=== PATIENT | female | born 1955 | race Caucasian/White ===

== ENCOUNTER 2025-01-08 21:47 | Inpatient (IN) ==
--- NOTE | 2025-01-08 23:41 | Emergency Department Note ---
Impression & Plan SOB (shortness of breath), Fluid overload, Ascites, Elevated troponin ED Provider Note CHIEF COMPLAINT: Shortness of breath HISTORY OF PRESENTING ILLNESS: This 69-year-old female patient presents to the emergency department for evaluation of shortness of breath that began a few days ago. The patient feels like she has fluid in her abdomen. She states that she has missed multiple doses of her insulin, diuretics, and other medications. The patient has a history of COPD and CHF. The patient states that she wears 4 L of oxygen at all times, but was only requiring 2 L by nasal cannula per EMS. No history of cirrhosis or ascites per patient. Has noticed a lot of swelling in her legs. She is from [place], but has been staying with her brother for the past 2-3 weeks. The patient states that she has not been taking her outpatient medications as prescribed since coming to her brother's home. She denies any fevers. No cough or URI symptoms. She had constipation for 3 days, but finally started having BMs. She has been having increased reflux symptoms since stopping her omeprazole. She is not on blood thinners. REVIEW OF SYSTEMS: See HPI for pertinent positives and pertinent negatives. ALLERGIES: NKDA MEDICATIONS: See below PAST MEDICAL HISTORY: See below PHYSICAL EXAM: VITALS: Vitals are noted on the nurse's note and reviewed by myself. GENERAL: Non toxic, in no acute distress, non-diaphoretic. SKIN: The patient has venous stasis changes of her bilateral lower extremities. She also has 1+ pitting edema with weeping of the legs secondary to fluid overload, but no obvious evidence for cellulitis. Capillary refill <2 sec. EYES: PERRLA. EOMI. Conjunctivae without injection, sclerae without icterus. NOSE: Patent without discharge. MOUTH: Mucous membranes moist. Uvula midline. Airway patent. NECK: Supple without nuchal rigidity. HEART: Regular rate and rhythm without murmurs gallops or rubs. LUNGS: The patient is receiving oxygen by nasal cannula. Clear to auscultation bilaterally with a few scattered wheezes, but no rales or rhonchi. No retractions or accessory muscle use. ABDOMEN: Positive bowel sounds x 4. Soft, but mildly distended. Diffusely tender to palpation. No masses or hepatosplenomegaly. Saldivar sign negative. No CVA tenderness. No guarding, rigidity, or rebound tenderness. No focal RLQ or LLQ tenderness. NEURO: Patient was alert and oriented. No focal neurological deficits. DIFFERENTIAL DIAGNOSIS: Differential diagnosis includes angina, CT, pericarditis, myocarditis, aortic dissection, pleurisy, pneumothorax, PE, pneumonia, CHF, COPD, fluid overload, ascites, pneumomediastinum, esophagitis, esophageal spasm, GERD, perforated esophagus, perforated duodenal/gastric ulcer, pancreatitis, cholecystitis, costochondritis, musculoskeletal, bronchitis, URI, or others. ED COURSE AND MEDICAL DECISION MAKING: MEDICATIONS GIVEN: DuoNeb treatment. Lasix 40 mg IV. MONITOR: Continuous patient monitor: Order was placed for continuous patient monitor. Patient was placed on the patient monitor and continuous pulse ox. Patient was noted to be in normal sinus rhythm at an initial rate of 70 bpm per my interpretation. EKG: EKG was interpreted by myself as normal sinus rhythm at [address] bpm with no acute ST or T wave changes. INTERPRETATION OF LABS: I interpreted the labs with full lab results as below in the lab section of this note. Laboratory results pertinent to the emergent complaint are discussed in the MDM section below. The patient was advised to follow up with their PCP and/or specialist(s) for further outpatient monitoring and management of any abnormal results. INTERPRETATION OF IMAGING: Imaging studies were interpreted by myself and read by radiology as per the imaging section of this note. The patient was advised to follow up with their PCP and/or specialist(s) for further outpatient management of any non-emergent abnormal findings. Chest x-ray showed an enlarged heart with prominent perihilar and right lower zone bronchovascular markings representing pulmonary vascular congestion. Blunting of the left costophrenic angle representing mild pleural thickening. Possible consolidation/atelectasis of the left lower zone. CTA of the chest with IV contrast showed no evidence for PE. There is a dilated main pulmonary artery. Suggestion of 2D echo recommended to correlate for pulmonary hypertension. Mild left basal pleural thickening. Mild dependent reticular and ill-defined groundglass opacities in the basal segments of the left lower lobe. Mild cardiomegaly. Cholelithiasis. Splenomegaly. Perinephritic fat stranding around the left kidney. Mild ascites. CT scan of the abdomen and pelvis with IV contrast shows cardiomegaly with minimal pericardial effusion. Mild peripancreatic fat stranding at the head region, mesentery, and periduodenal region with edematous wall thickening of the duodenum. Possible early interstitial pancreatitis/group pancreatitis. Suggested serum lipase correlation which was normal. Heterogeneous enhancement of the liver parenchyma is noted with patchy areas of hypodensities within. This could be secondary to underlying perfusion abnormality due to cardiac cause. Perisplenic fluid seen. Cholelithiasis. Diffuse gallbladder wall edema is noted which is likely pseudo edema due to underlying hepatic or cardiac cause rather than acute cholecystitis. Bilateral perinephritic fat stranding. Visualized lung bases show patchy consolidation in lingula and minimal left pleural effusion. Diffuse subcutaneous edema/thickening in the lower anterior abdominal wall. CHRONIC MEDICAL/SOCIAL CONDITIONS AFFECTING CARE: CHF, COPD. The patient has not been taking her medications correctly recently. CONSULTATIONS: On-call hospitalist MDM SUMMARY: I examined the patient. The patient is from [place], but has been staying with her brother for the past 2 to 3 weeks. She has not been taking her normal outpatient medications since coming to her brother's home. She has been having increased shortness of breath over the past couple of days with fluid buildup in her abdomen and legs. The patient has a history of COPD and CHF, but denies a history of ascites or cirrhosis. An IV lock was placed and labs were drawn. The patient was not given any IV fluids due to concern for fluid overload. The patient was given a DuoNeb treatment with mild improvement of her symptoms. The patient states that she is normally on 4 L of oxygen by nasal cannula at home and this was applied in the ER. The patient was given Lasix 40 mg IV. White blood cell count normal at 6.27. Hemoglobin normal at 12.6. Platelet count normal at 252. Coags were normal. VBG with a low pH of 7.23 and elevated pCO2 of 69, but otherwise normal. This is concerning for respiratory acidosis. Creatinine 1.59, BUN 47, and glucose 172, but CMP otherwise normal. Lipase normal. TSH normal. BNP elevated at 578. High-sensitivity troponin elevated at 18 with repeat of 17.4. Urinalysis with 1+ protein, but negative for UTI. COVID, RSV, and influenza were negative. Chest x-ray showed an enlarged heart with prominent perihilar and right lower zone bronchovascular markings representing pulmonary vascular congestion. Blunting of the left costophrenic angle representing mild pleural thickening. Possible consolidation/atelectasis of the left lower zone. CTA of the chest with IV contrast showed no evidence for PE. There is a dilated main pulmonary artery. Suggestion of 2D echo recommended to correlate for pulmonary hypertension. Mild left basal pleural thickening. Mild dependent reticular and ill-defined groundglass opacities in the basal segments of the left lower lobe. Mild cardiomegaly. Cholelithiasis. Splenomegaly. Perinephritic fat stranding around the left kidney. Mild ascites. CT scan of the abdomen and pelvis with IV contrast shows cardiomegaly with minimal pericardial effusion. Mild peripancreatic fat stranding at the head region, mesentery, and periduodenal region with edematous wall thickening of the duodenum. Possible early interstitial pancreatitis/group pancreatitis. Suggested serum lipase correlation which was normal. Heterogeneous enhancement of the liver parenchyma is noted with patchy areas of hypodensities within. This could be secondary to underlying perfusion abnormality due to cardiac cause. Perisplenic fluid seen. Cholelithiasis. Diffuse gallbladder wall edema is noted which is likely pseudo edema due to underlying hepatic or cardiac cause rather than acute cholecystitis. Bilateral perinephritic fat stranding. Visualized lung bases show patchy consolidation in lingula and minimal left pleural effusion. Diffuse subcutaneous edema/thickening in the lower anterior abdominal wall. The patient has multiple abnormal laboratory studies as well as multiple abnormalities seen on her CT scan images. Therefore, the patient will require admission for further evaluation and treatment. I had a meaningful discussion about this patient with Dr. Briones who agrees with my assessment and the treatment plan. I spoke with the on-call hospitalist who agreed to admit the patient for further evaluation and treatment. Please refer to their dictation for further details. The patient's care was transferred in stable condition. DIAGNOSIS: Shortness of breath Fluid overload Ascites Elevated troponin Past Med/Surg History Problem List (Updated 01/09/25 @ 06:39 by Georgie Gonzalez PA-C) Elevated troponin (Acute) Ascites (Acute) Fluid overload (Acute) SOB (shortness of breath) (Acute) Social History Smoking Status: Former smoker Tobacco Type: Cigarettes Preferred Language: Gabonese Feels Safe at Home: Yes Allergies Allergies Allergy/AdvReac Type Severity Reaction Status Date / Time No Known Allergies Allergy Verified 01/09/25 00:24 Home Meds Home Medications Medication Instructions Recorded Confirmed carvedilol 3.125 mg tablet 3.125 mg PO AMPM 01/09/25 01/09/25 cholecalciferol (vitamin D3) 25 25 mcg PO DAILY 01/09/25 01/09/25 mcg (1,000 unit) tablet (Vitamin D3) cyanocobalamin (vitamin B-12) 1,000 mcg PO DAILY 01/09/25 01/09/25 1,000 mcg tablet escitalopram oxalate 10 mg tablet 10 mg PO QAM 01/09/25 01/09/25 hydroxyzine HCl 25 mg tablet 25 mg PO TID PRN Anxiety 01/09/25 01/09/25 insulin glargine 100 unit/mL (3 12 unit subcut HS 01/09/25 01/09/25 mL) subcutaneous pen (Basaglar KwikPen U-100 Insulin) simvastatin 20 mg tablet 20 mg PO QPM 01/09/25 01/09/25 torsemide 20 mg tablet 60 mg PO QAM 01/09/25 01/09/25 tramadol 50 mg tablet 50 mg PO Q8 PRN Moderate Pain 01/09/25 01/09/25 (Scale Score 5-6) Results & Data (ED) Vital Signs Vital Signs - 24 hr 01/08/25 21:59 01/08/25 21:59 01/08/25 21:59 Temperature 36.5 C Temperature Source Oral Pulse Rate 74 Pulse Rate [Apical] Respiratory Rate 20 Respiratory Effort / Characteristics Short of Breath SOB on Exertion Respiratory Depth Normal Respiratory Pattern Regular Blood Pressure 156/106 H Blood Pressure [Right Arm] Blood Pressure Mean 122 Blood Pressure Mean [Right Arm] Pulse Oximetry 97 97 Oxygen Delivery Method Nasal Cannula Nasal Cannula Oxygen Flow Rate 2 2 Sepsis Recent Fever Within 48 Hours No Sepsis New/Unexplained Change in Mental Status No Sepsis Action Taken by Nursing No Action Required 01/08/25 22:29 01/08/25 23:26 01/09/25 00:24 Temperature Temperature Source Pulse Rate 74 Pulse Rate [Apical] 70 Respiratory Rate 18 Respiratory Effort / Characteristics Non-Labored Respiratory Depth Normal Respiratory Pattern Regular Blood Pressure Blood Pressure [Right Arm] 170/90 H Blood Pressure Mean Blood Pressure Mean [Right Arm] 116 Pulse Oximetry 96 94 Oxygen Delivery Method Room Air Nasal Cannula Oxygen Flow Rate 2 Sepsis Recent Fever Within 48 Hours Sepsis New/Unexplained Change in Mental Status Sepsis Action Taken by Nursing 01/09/25 01:00 01/09/25 02:22 01/09/25 03:00 Temperature Temperature Source Pulse Rate 64 Pulse Rate [Apical] 90 67 Respiratory Rate 18 18 Respiratory Effort / Characteristics Non-Labored Spontaneous Respiratory Depth Normal Normal Respiratory Pattern Regular Regular Blood Pressure Blood Pressure [Right Arm] 169/90 H 170/97 H Blood Pressure Mean Blood Pressure Mean [Right Arm] 116 121 Pulse Oximetry 97 97 Oxygen Delivery Method Nasal Cannula Nasal Cannula Oxygen Flow Rate 4 4 Sepsis Recent Fever Within 48 Hours Sepsis New/Unexplained Change in Mental Status Sepsis Action Taken by Nursing Laboratory Data 01/09/25 00:24 01/09/25 00:24 Lab Results 01/08/25 01/09/25 01/09/25 Range/Units 21:58 00:24 00:50 WBC 6.27 (4.8-10.8) K/ul RBC 4.95 (4.20-5.40) M/uL Hgb 12.6 (12.0-16.0) g/dl Hct 42.2 (37.0-47.0) % MCV 85.3 (80.0-100.0) fL MCH 25.5 (25.0-34.0) pg MCHC 29.9 L (32.0-36.0) g/dL RDW Std Deviation 52.2 H (36.4-46.3) fL RDW Coeff of Otto 16.8 H (11.5-14.5) % Plt Count 252 (130-400) K/uL MPV 9.8 (9.4-12.4) fL Immature Gran % (Auto) 0.3 % Neut % (Auto) 76.7 % Lymph % (Auto) 10.7 % Morgan % (Auto) 8.8 % Eos % (Auto) 2.7 % Baso % (Auto) 0.8 % Neut # (Auto) 4.81 (1.40-6.50) K/uL Lymph # (Auto) 0.67 L (1.20-3.40) K/uL Morgan # (Auto) 0.55 (0.11-0.59) K/uL Eos # (Auto) 0.17 (0.00-0.50) K/uL Baso # (Auto) 0.05 (0.00-0.20) K/uL Immature Gran # (Auto) 0.02 (0.01-0.20) K/uL PT 11.1 (9.0-12.0) Seconds INR 1.0 (0.9-1.1) APTT 27 (21-31) Seconds PTT Ratio 1.0 VBG pH 7.23 L (7.36-7.41) VBG pCO2 69 H (38-50) mmHg VBG pO2 33 mmHg VBG HCO3 29 mmol/L VBG O2 Saturation < 60.0 % VBG Base Excess -0.4 mEq/L Sodium 136 (136-145) mmol/L Potassium 4.4 (3.5-5.1) mmol/L Chloride 102 (98-107) mmol/L Carbon Dioxide 30 (21-32) mmol/L Anion Gap 4 (3-11) BUN 47 H (6-23) mg/dl Creatinine 1.59 H (0.6-1.2) mg/dl Est Cr Clr Drug Dosing 44.9 ml/min eGFR 35.39 BUN/Creatinine Ratio 29.6 H (10-20) Glucose 172 H (70-99(Fasting)) mg/dl POC Glucose 169 H (70-99) mg/dl Calcium 8.5 L (8.6-10.3) mg/dl Magnesium 1.8 (1.7-2.4) mg/dl Total Bilirubin 0.6 (0.2-1.0) mg/dl AST 13 (13-39) U/L ALT 8 (7-52) U/L Alkaline Phosphatase 77 (34-104) U/L Troponin I High Sens 18.0 H (0-14) pg/ml B-Natriuretic Peptide 578 H (0-100) pg/ml Total Protein 6.8 (6.0-8.3) gm/dl Albumin 3.6 (3.4-5.0) gm/dl Globulin 3.2 (2.5-4.0) gm/dl Albumin/Globulin Ratio 1.1 (0.9-2) Lipase 35 (11-82) U/L TSH (0.300-4.500) uIu/ml Urine Color Yellow Urine Appearance Clear (Clear) Urine pH 5.0 (4.5-7.5) Ur Specific [place] 1.009 (1.000-1.030) Urine Protein 1+ H (Negative) Urine Glucose (UA) Negative (Negative) Urine Ketones Negative (Negative) Urine Blood Negative (Negative) Urine Nitrite Negative (Negative) Urine Bilirubin Negative (Negative) Urine Urobilinogen Negative (Negative) Ur Leukocyte Esterase Negative (Negative) Urine WBC (Auto) 0-5 (0-5) /hpf Urine RBC (Auto) 0-2 (0-2) /hpf U Hyaline Cast (Auto) 3-5 H (0-2) /lpf U Epithel Cells (Auto) 0-2 (0-2) /hpf Urine Bacteria (Auto) None Seen (None Seen) SARS-CoV-2 (PCR) (Negative) Influenza Type A (PCR) (Neg) Influenza Type B (PCR) (Neg) RSV (RT-PCR) (Neg) 01/09/25 01/09/25 Range/Units 02:24 02:26 WBC (4.8-10.8) K/ul RBC (4.20-5.40) M/uL Hgb (12.0-16.0) g/dl Hct (37.0-47.0) % MCV (80.0-100.0) fL MCH (25.0-34.0) pg MCHC (32.0-36.0) g/dL RDW Std Deviation (36.4-46.3) fL RDW Coeff of Otto (11.5-14.5) % Plt Count (130-400) K/uL MPV (9.4-12.4) fL Immature Gran % (Auto) % Neut % (Auto) % Lymph % (Auto) % Morgan % (Auto) % Eos % (Auto) % Baso % (Auto) % Neut # (Auto) (1.40-6.50) K/uL Lymph # (Auto) (1.20-3.40) K/uL Morgan # (Auto) (0.11-0.59) K/uL Eos # (Auto) (0.00-0.50) K/uL Baso # (Auto) (0.00-0.20) K/uL Immature Gran # (Auto) (0.01-0.20) K/uL PT (9.0-12.0) Seconds INR (0.9-1.1) APTT (21-31) Seconds PTT Ratio VBG pH (7.36-7.41) VBG pCO2 (38-50) mmHg VBG pO2 mmHg VBG HCO3 mmol/L VBG O2 Saturation % VBG Base Excess mEq/L Sodium (136-145) mmol/L Potassium (3.5-5.1) mmol/L Chloride (98-107) mmol/L Carbon Dioxide (21-32) mmol/L Anion Gap (3-11) BUN (6-23) mg/dl Creatinine (0.6-1.2) mg/dl Est Cr Clr Drug Dosing ml/min eGFR BUN/Creatinine Ratio (10-20) Glucose (70-99(Fasting)) mg/dl POC Glucose (70-99) mg/dl Calcium (8.6-10.3) mg/dl Magnesium (1.7-2.4) mg/dl Total Bilirubin (0.2-1.0) mg/dl AST (13-39) U/L ALT (7-52) U/L Alkaline Phosphatase (34-104) U/L Troponin I High Sens 17.4 H (0-14) pg/ml B-Natriuretic Peptide (0-100) pg/ml Total Protein (6.0-8.3) gm/dl Albumin (3.4-5.0) gm/dl Globulin (2.5-4.0) gm/dl Albumin/Globulin Ratio (0.9-2) Lipase (11-82) U/L TSH 2.615 (0.300-4.500) uIu/ml Urine Color Urine Appearance (Clear) Urine pH (4.5-7.5) Ur Specific [place] (1.000-1.030) Urine Protein (Negative) Urine Glucose (UA) (Negative) Urine Ketones (Negative) Urine Blood (Negative) Urine Nitrite (Negative) Urine Bilirubin (Negative) Urine Urobilinogen (Negative) Ur Leukocyte Esterase (Negative) Urine WBC (Auto) (0-5) /hpf Urine RBC (Auto) (0-2) /hpf U Hyaline Cast (Auto) (0-2) /lpf U Epithel Cells (Auto) (0-2) /hpf Urine Bacteria (Auto) (None Seen) SARS-CoV-2 (PCR) NEGATIVE (Negative) Influenza Type A (PCR) Negative (Neg) Influenza Type B (PCR) Negative (Neg) RSV (RT-PCR) Negative (Neg) Administered Medications Discontinued Medications Albuterol (Albut/Ipratrop 3mg/0.5mg Neb 3 Ml Vial) 3 ml NEB NOW STA; Protocol Stop: 01/09/25 00:25 Last Admin: 01/09/25 00:39 Dose: 3 ml Documented By: MIKE Furosemide (Furosemide 40 Mg/4 Ml Vial) 40 mg IV ONE ONE Stop: 01/09/25 03:15 Last Admin: 01/09/25 03:40 Dose: 40 mg Documented By: MIKE Magnesium Sulfate/Dextrose (Magnesium Sulfate / D5w) 1 gm in 100 mls @ 50 mls/hr IV ONE ONE Stop: 01/09/25 05:49 Last Admin: 01/09/25 04:17 Dose: 50 mls/hr Documented By: MAR Ioversol (Optiray 320 125ml) 118 ml IV ONCE ONE Stop: 01/09/25 01:18 Last Admin: 01/09/25 01:17 Dose: 118 ml Documented By: PHONG Metoprolol Tartrate (Metoprolol Tartrate 1 Mg/Ml Vial) 2.5 mg IV NOW STA Stop: 01/09/25 03:59 Last Admin: 01/09/25 04:17 Dose: 2.5 mg Documented By: MAR Imaging Data Radiologist's Impression: Chest X-Ray 01/09/25 00:24 EXAM: XR chest 1V portable CLINICAL HISTORY: Shortness of breath and history of congestive heart failure. TECHNIQUE: An X-ray image of the chest is obtained using an AP projection. COMPARISON: The available current CT chest PE protocol is reviewed. FINDINGS: Pulmonary Parenchyma: Prominent perihilar and right lower zone bronchovascular markings. Possible consolidation/atelectasis left lower zone. No pulmonary nodules are identified. Blunting of left costophrenic angle, representing mild pleural thickening. Heart and Mediastinum: The heart is enlarged. No mediastinal widening or masses. No hilar or mediastinal lymphadenopathy. Bony Thorax: Bony thorax appears intact without fractures or deformities. Soft Tissues: Elevated left diaphragm. IMPRESSION: Enlarged heart with prominent perihilar and right lower zone bronchovascular markings, representing pulmonary vascular congestion. (unchanged). Blunting of left costophrenic angle, representing mild pleural thickening(unchanged). Possible consolidation/atelectasis left lower zone. Concur with CT findings. Electronically signed by Jacky Villasenor 01-09-2025 02:34 AM Abdomen/Pelvis CT 04/18/25 00:26 EXAM: CT abd pelvis IV con only CLINICAL HISTORY: Abdominal pain TECHNIQUE: Multiple contiguous axial images were obtained from the level of diaphragm to the pubis symphysis. This study was acquired after the IV administration of iodinated contrast material, given the patient's indications for the examination. If IV contrast material had not been administered, the likelihood of detecting abnormalities relevant to the patient's condition would have been substantially decreased. Coronal and sagittal reformatted images were generated and reviewed to improve anatomic localization and optimize lesion detection. CT scan was performed according to ALARA (as low as reasonably achievable). COMPARISON: none FINDINGS: The visualized lung bases shows patchy consolidation in lingula and minimal left pleural effusion. Elevated left posterior hemidiaphragm. Cardiomegaly is detected. Minimal pericardial effusion is seen. ABDOMEN/PELVIS: Heterogeneous enhancement of the liver parenchyma is noted with patchy areas of hypodensities within. This could be due to secondary to underlying perfusion abnormality due to cardiac cause (in the background of diffuse subcutaneous edema). There is no intra or extrahepatic biliary ductal dilatation. Hepatic vasculature is patent. The gallbladder shows multiple small 2-3mm calculi within. Diffuse gallbladder wall edema is noted, likely pseudo edema due to underlying hepatic all cardiac cause rather than acute cholecystitis. Mild peripancreatic fat stranding at head region, mesentery and periduodenal region(D2 and D3 segment) with edematous wall thickening of duodenum. Perisplenic fluid is seen. The spleen and adrenal glands are unremarkable. The kidneys are normal in size and attenuation. There is no hydronephrosis. Bilateral perinephric fat stranding. No renal calculi or renal masses are identified. The ureters are normal in caliber and no ureteral calculi are seen. The bladder is mildly filled. Uterus and adnexa are unremarkable. No evidence of bowel obstruction is seen. The aorta is normal in caliber. No aggressive appearing osseous lesions are identified. Diffuse subcutaneous edema/thickening seen in lower anterior abdominal wall. IMPRESSION: 1. Cardiomegaly is detected. Minimal pericardial effusion is seen. 2. Mild peripancreatic fat stranding at head region, mesentery and periduodenal region(D2 and D3 segment) with edematous wall thickening of duodenum. Possible early interstitial pancreatitis/groove pancreatitis. Suggested serum amylase/lipase correlation. 3. Heterogeneous enhancement of the liver parenchyma is noted with patchy areas of hypodensities within. This could be due to secondary to underlying perfusion abnormality due to cardiac cause (in the background of diffuse subcutaneous edema). Suggested clinical/echocardiography correlation. 4. Perisplenic fluid is seen. 5. Cholelithiasis. Diffuse gallbladder wall edema is noted, likely pseudo edema due to underlying hepatic or cardiac cause more than acute cholecystitis. 6. Bilateral perinephric fat stranding. Suggested renal function test correlation. 7. Visualized lung bases shows patchy consolidation in lingula and minimal left pleural effusion. 8. Diffuse subcutaneous edema/thickening seen in lower anterior abdominal wall. Electronically signed by Darrius Aguilar 01-09-2025 03:02 AM Chest CTA 01/09/25 00:26 EXAM: CT angio chest PE protocol CLINICAL HISTORY: PE TECHNIQUE: Contiguous axial images were obtained from the neck base through the upper abdomen following intravenous administration of iodinated contrast material. Angiographic images were processed, 3D MIP images were acquired for interpretation. If IV contrast material had not been administered, the likelihood of detecting abnormalities relevant to the patient's condition would have been substantially decreased. Coronal and sagittal 3-D MIPs were likewise performed and indicated to increase the sensitivity of detectin diffuse clinically relevant pathology. CT scan was performed according to ALARA (as low as reasonable achievable). COMPARISON: none FINDINGS: Partial image degradation due to respiration related artefacts. Adequate contrast bolus without evidence of pulmonary embolism in main, left and right pulmonary and segmental arteries in both lungs. Subsegmental arteries are sub optimally visualsied due to partial image degradation. The central airways are patent. Mild left basal pleural thickening. Mild dependant reticular and ill defined ground glass opacities in basal segments of left lower lobe. Rest of the lungs are clear. No pleural effusion. The heart is mildly enlarged. Aorta is of normal size and configuration. There are no appreciable coronary artery and aortic atherosclerotic calcifications. No pericardial effusion is identified. The thyroid is unremarkable. No mediastinal, hilar, or axillary lymphadenopathy is noted. No suspicious lytic or sclerotic osseous lesions are identified. Cholelithiasis. splenomegaly perinephric fat stranding around left kidney. Mild ascites IMPRESSION: No evidence of pulmonary embolism. Dilated main pulmonary artery - Suggest 2D ECHO correlation for pulmonary hypertension. Mild left basal pleural thickening. Mild dependant reticular and ill defined ground glass opacities in basal segments of left lower lobe. Mild cardiomegaly. Cholelithiasis. Splenomegaly Perinephric fat stranding around left kidney. Mild ascites Electronically signed by Darrius Aguilar 01-09-2025 02:51 AM Discharge Plan Visit Data Chief Complaint: Shortness of Breath/Dyspnea Stated Complaint: SOB ED Provider: All [facility] ED Midlevel Provider: Georgie Gonzalez Discharge Problem: SOB (shortness of breath), Fluid overload, Ascites, Elevated troponin Patient Disposition: Admitted As Inpatient Condition: Fair Discharge Instructions Interventions: ED Discharge Assessment Last Done: 01/09/25 05:20 Discharge Problem: Fluid overload Qualifiers: Hypervolemia type: unspecified Qualified Code(s): E87.70 - Fluid overload, unspecified Ascites Qualifiers: Ascites type: other type Qualified Code(s): R18.8 - Other ascites
[2025-01-09] MEDS: ALBUT/IPRATROP 3MG/0.5MG NEB 3 ML VIAL NEB STA (00:39)
[2025-01-09 00:47] LABS: Appearance Urine Clear (Clear); Bacteria Urine Automated None Seen (None Seen); Bilirubin Urine Negative (Negative); Blood Urine Negative (Negative); Color Urine Yellow; Epithelial Cell Urine Auto 0-2 /hpf (0-2); Glucose Urine UA Negative (Negative); Ketones Urine Negative (Negative); Leukocyte Esterase Urine Negative (Negative); Nitrite Urine Negative (Negative); Protein Urine 1+ (Negative); RBC Urine Automated 0-2 /hpf (0-2); Specific Gravity Urine 1.009 (1.000-1.030); Urobilinogen Urine Negative (Negative); WBC Urine Automated 0-5 /hpf (0-5)
[2025-01-09 00:50] LABS: Basophils # (auto) 0.05 K/uL (0.00-0.20); Basophils % (auto) 0.8 %; Eosinophils # (auto) 0.17 K/uL (0.00-0.50); Eosinophils % (auto) 2.7 %; Hematocrit (blood only) 42.2 % (37.0-47.0); Hemoglobin 12.6 g/dl (12.0-16.0); Immature Granulocytes # (auto) 0.02 K/uL (0.01-0.20); Immature Granulocytes % (auto) 0.3 %; Lymphocytes # (auto) 0.67 K/uL (1.20-3.40); Lymphocytes % (auto) 10.7 %; Mean Corpuscular Hemoglobin 25.5 pg (25.0-34.0); Mean Corpuscular Hgb Conc 29.9 g/dL (32.0-36.0); Mean Corpuscular Volume 85.3 fL (80.0-100.0); Mean Platelet Volume 9.8 fL (9.4-12.4); Monocytes # (auto) 0.55 K/uL (0.11-0.59); Monocytes % (auto) 8.8 %; Neutrophils # (auto) 4.81 K/uL (1.40-6.50); Neutrophils % (auto) 76.7 %; Platelet Count 252 K/uL (130-400); RDW Coefficient of Variation 16.8 % (11.5-14.5); RDW Standard Deviation 52.2 fL (36.4-46.3); Red Blood Count 4.95 M/uL (4.20-5.40); White Blood Count 6.27 K/ul (4.8-10.8)
[2025-01-09 00:51] LABS: Albumin Globulin Ratio 1.1 (0.9-2); Albumin Level 3.6 gm/dl (3.4-5.0); BUN Creatinine Ratio 29.6 (10-20); Bilirubin,Total 0.6 mg/dl (0.2-1.0); Calcium 8.5 mg/dl (8.6-10.3); Creatinine Clr Calc Pharmacy 44.9 ml/min; Globulin 3.2 gm/dl (2.5-4.0); Magnesium 1.8 mg/dl (1.7-2.4); Potassium 4.4 mmol/L (3.5-5.1); Total Protein 6.8 gm/dl (6.0-8.3)
[2025-01-09 01:15] LABS: Base Excess VBG -0.4 mEq/L; HCO3 VBG 29 mmol/L; Oxygen Saturation VBG < 60.0 %; PCO2 VBG 69 mmHg (38-50); PO2 VBG 33 mmHg; pH VBG 7.23 (7.36-7.41)
[2025-01-09] MEDS: OPTIRAY 320 125ml IV ONE (01:17)
[2025-01-09 01:25] LABS: Partial Thromboplastin Time 27 Seconds (21-31); Prothrombin Time 11.1 Seconds (9.0-12.0)
--- NOTE | 2025-01-09 02:34 | XRay Report ---
EXAM: XR chest 1V portable CLINICAL HISTORY: Shortness of breath and history of congestive heart failure. TECHNIQUE: An X-ray image of the chest is obtained using an AP projection. COMPARISON: The available current CT chest PE protocol is reviewed. FINDINGS: Pulmonary Parenchyma: Prominent perihilar and right lower zone bronchovascular markings. Possible consolidation/atelectasis left lower zone. No pulmonary nodules are identified. Blunting of left costophrenic angle, representing mild pleural thickening. Heart and Mediastinum: The heart is enlarged. No mediastinal widening or masses. No hilar or mediastinal lymphadenopathy. Bony Thorax: Bony thorax appears intact without fractures or deformities. Soft Tissues: Elevated left diaphragm. IMPRESSION: Enlarged heart with prominent perihilar and right lower zone bronchovascular markings, representing pulmonary vascular congestion. (unchanged). Blunting of left costophrenic angle, representing mild pleural thickening(unchanged). Possible consolidation/atelectasis left lower zone. Concur with CT findings. Electronically signed by Jacky Villasenor 01-09-2025 02:34 AM
--- NOTE | 2025-01-09 02:51 | CT Scan Report ---
EXAM: CT angio chest PE protocol CLINICAL HISTORY: PE TECHNIQUE: Contiguous axial images were obtained from the neck base through the upper abdomen following intravenous administration of iodinated contrast material. Angiographic images were processed, 3D MIP images were acquired for interpretation. If IV contrast material had not been administered, the likelihood of detecting abnormalities relevant to the patient's condition would have been substantially decreased. Coronal and sagittal 3-D MIPs were likewise performed and indicated to increase the sensitivity of detectin diffuse clinically relevant pathology. CT scan was performed according to ALARA (as low as reasonable achievable). COMPARISON: none FINDINGS: Partial image degradation due to respiration related artefacts. Adequate contrast bolus without evidence of pulmonary embolism in main, left and right pulmonary and segmental arteries in both lungs. Subsegmental arteries are sub optimally visualsied due to partial image degradation. The central airways are patent. Mild left basal pleural thickening. Mild dependant reticular and ill defined ground glass opacities in basal segments of left lower lobe. Rest of the lungs are clear. No pleural effusion. The heart is mildly enlarged. Aorta is of normal size and configuration. There are no appreciable coronary artery and aortic atherosclerotic calcifications. No pericardial effusion is identified. The thyroid is unremarkable. No mediastinal, hilar, or axillary lymphadenopathy is noted. No suspicious lytic or sclerotic osseous lesions are identified. Cholelithiasis. splenomegaly perinephric fat stranding around left kidney. Mild ascites IMPRESSION: No evidence of pulmonary embolism. Dilated main pulmonary artery - Suggest 2D ECHO correlation for pulmonary hypertension. Mild left basal pleural thickening. Mild dependant reticular and ill defined ground glass opacities in basal segments of left lower lobe. Mild cardiomegaly. Cholelithiasis. Splenomegaly Perinephric fat stranding around left kidney. Mild ascites Electronically signed by Darrius Aguilar 01-09-2025 02:51 AM
[2025-01-09 03:02] LABS: Troponin I High Sensitivity 17.4 pg/ml (0-14)
--- NOTE | 2025-01-09 03:03 | CT Scan Report ---
EXAM: CT abd pelvis IV con only CLINICAL HISTORY: Abdominal pain TECHNIQUE: Multiple contiguous axial images were obtained from the level of diaphragm to the pubis symphysis. This study was acquired after the IV administration of iodinated contrast material, given the patient's indications for the examination. If IV contrast material had not been administered, the likelihood of detecting abnormalities relevant to the patient's condition would have been substantially decreased. Coronal and sagittal reformatted images were generated and reviewed to improve anatomic localization and optimize lesion detection. CT scan was performed according to ALARA (as low as reasonably achievable). COMPARISON: none FINDINGS: The visualized lung bases shows patchy consolidation in lingula and minimal left pleural effusion. Elevated left posterior hemidiaphragm. Cardiomegaly is detected. Minimal pericardial effusion is seen. ABDOMEN/PELVIS: Heterogeneous enhancement of the liver parenchyma is noted with patchy areas of hypodensities within. This could be due to secondary to underlying perfusion abnormality due to cardiac cause (in the background of diffuse subcutaneous edema). There is no intra or extrahepatic biliary ductal dilatation. Hepatic vasculature is patent. The gallbladder shows multiple small 2-3mm calculi within. Diffuse gallbladder wall edema is noted, likely pseudo edema due to underlying hepatic all cardiac cause rather than acute cholecystitis. Mild peripancreatic fat stranding at head region, mesentery and periduodenal region(D2 and D3 segment) with edematous wall thickening of duodenum. Perisplenic fluid is seen. The spleen and adrenal glands are unremarkable. The kidneys are normal in size and attenuation. There is no hydronephrosis. Bilateral perinephric fat stranding. No renal calculi or renal masses are identified. The ureters are normal in caliber and no ureteral calculi are seen. The bladder is mildly filled. Uterus and adnexa are unremarkable. No evidence of bowel obstruction is seen. The aorta is normal in caliber. No aggressive appearing osseous lesions are identified. Diffuse subcutaneous edema/thickening seen in lower anterior abdominal wall. IMPRESSION: 1. Cardiomegaly is detected. Minimal pericardial effusion is seen. 2. Mild peripancreatic fat stranding at head region, mesentery and periduodenal region(D2 and D3 segment) with edematous wall thickening of duodenum. Possible early interstitial pancreatitis/groove pancreatitis. Suggested serum amylase/lipase correlation. 3. Heterogeneous enhancement of the liver parenchyma is noted with patchy areas of hypodensities within. This could be due to secondary to underlying perfusion abnormality due to cardiac cause (in the background of diffuse subcutaneous edema). Suggested clinical/echocardiography correlation. 4. Perisplenic fluid is seen. 5. Cholelithiasis. Diffuse gallbladder wall edema is noted, likely pseudo edema due to underlying hepatic or cardiac cause more than acute cholecystitis. 6. Bilateral perinephric fat stranding. Suggested renal function test correlation. 7. Visualized lung bases shows patchy consolidation in lingula and minimal left pleural effusion. 8. Diffuse subcutaneous edema/thickening seen in lower anterior abdominal wall. Electronically signed by Darrius Aguilar 01-09-2025 03:02 AM
[2025-01-09 03:11] LABS: Influenza A virus by PCR Negative (Neg); Influenza B virus by PCR Negative (Neg); RSV by PCR Negative (Neg); SARS CoV2 RNA(COVID-19) Ceph NEGATIVE (Negative)
[2025-01-09] MEDS: FUROSEMIDE 40 MG/4 ML VIAL IV ONE (03:40)
[2025-01-09] MEDS ORDERED: carvediloL 3.125 MG TAB PO ONE (03:58)
--- NOTE | 2025-01-09 03:58 | History & Physical Report ---
Date of Service January 09, 2025 Assessment & Plan (1) Acute and chronic respiratory failure with hypercapnia: Plan: Acute on chronic hypoxemic, hypercapnic respiratory failure Underlying pulmonary hypertension hx chronic respiratory failure secondary to COPD/RLD on home O2 OHS on CPAP Secondary to decompensated heart failure secondary to missed home medications, uncontrolled BP hx diastolic dysfunction Troponin elevation secondary to above hyperlipidemia, on statin Rx DM2 insulin requiring, suboptimal control as of recent hemoglobin A1c of 8.25 September 2024 CRI, creatinine at baseline anxiety/mood disorder, at baseline past tobacco abuse Admit to PCU BiPAP given respiratory acidosis Recheck VBG Pulmonary consult if without improvement Diuretic Rx Strict I/Os, daily weights, CHF education, fluid restriction Cardiology consult re: decompensated heart failure Low-dose amlodipine if BP still uncontrolled following a.m. beta-ashlie dose Basal bolus insulin, ISS BG goal 110-140, carb count coverage DVT prophylaxis. Heparin subcu Full code Total critical care time was 45 minutes. Text document was generated using [employer] voice recognition software. It may contain grammatical or spelling errors. Kindly contact undersigned for clarification of any documentation item in question. History of Present Illness Chief Complaint: Shortness of breath, fluid retention Primary Care Provider: Dr. Urbina History obtained from patient and records. Medical history significant for chronic respiratory failure secondary to COPD/RLD on home O2, chronic diastolic heart failure (EF 60%, TTE 2024), mild TR, hypertension, hyperlipidemia, pulmonary hypertension, OHS on CPAP, DM2 insulin requiring, CRI (baseline creatinine 1.5-1.7), chronic LE venous stasis, GERD, cholelithiasis, anxiety/mood disorder, past tobacco abuse. Patient is a resident of [place], [place] who has been in town the last 2 weeks to visit brother. Last confinement [facility] September, for decompensated heart failure. BiPAP use during confinement due to hypercapnia. Patient discharged to [facility] for rehab before returning home. Patient ran out of home meds the last couple of days. Increased SOB especially on exertion and fluid retention the last couple of days. Denies chest pain, cough. Compliant with CPAP as per patient. Compliant with 2 L fluid restriction. Denies headache symptoms. Highest SBP 180s at the ER. Medical History as above Surgical History : Partial colectomy, tonsillectomy/adenoidectomy, appendectomy, abscess aspiration, carpal tunnel surgery Family History : Breast cancer, PAOLA Personal/Social history : Past tobacco abuse, rare EtOH intake, retired [employer] Allergies Allergy/AdvReac Type Severity Reaction Status Date / Time No Known Allergies Allergy Verified 01/09/25 00:24 Home Medications Medication Instructions Recorded Confirmed Type carvedilol 3.125 mg tablet 3.125 mg PO AMPM 01/09/25 01/09/25 History cholecalciferol (vitamin D3) 25 25 mcg PO DAILY 01/09/25 01/09/25 History mcg (1,000 unit) tablet (Vitamin D3) cyanocobalamin (vitamin B-12) 1,000 mcg PO DAILY 01/09/25 01/09/25 History 1,000 mcg tablet escitalopram oxalate 10 mg tablet 10 mg PO QAM 01/09/25 01/09/25 History hydroxyzine HCl 25 mg tablet 25 mg PO TID PRN Anxiety 01/09/25 01/09/25 History insulin glargine 100 unit/mL (3 12 unit subcut HS 01/09/25 01/09/25 History mL) subcutaneous pen (Basaglar KwikPen U-100 Insulin) simvastatin 20 mg tablet 20 mg PO QPM 01/09/25 01/09/25 History torsemide 20 mg tablet 60 mg PO QAM 01/09/25 01/09/25 History tramadol 50 mg tablet 50 mg PO Q8 PRN Moderate Pain 01/09/25 01/09/25 History (Scale Score 5-6) Past Med/Surg History Problem List (Updated 01/09/25 @ 07:47 by Tucker Castano MD) Acute and chronic respiratory failure with hypercapnia Elevated troponin (Acute) Ascites (Acute) Fluid overload (Acute) SOB (shortness of breath) (Acute) Social History Smoking Status: Former smoker Tobacco Type: Cigarettes Preferred Language: Lao Feels Safe at Home: Yes Review of Systems Review of Systems: As per HPI, all other systems reviewed and negative Physical Exam Physical Exam: GENERAL: Slightly uncomfortable, morbidly obese, minimal respiratory distress SKIN: Normal color, warm HEENT: [place] palpebral conjunctivae, no ptosis, dry buccal mucosa, BiPAP in place NECK : Supple, short neck, no tenderness CHEST : Decreased breath sounds, no tenderness HEART : RRR, no obvious murmurs ABDOMEN: Marked distention, nontender EXTREMITIES : Bilateral LE erythematous swelling (chronic as per patient), without tenderness, palpable pulses, no other conspicuous deformities noted NEUROLOGIC : Coherent, no facial asymmetry, no other gross focality Results & Data Results & Data Vital Signs (Past 12 Hours) Vital Signs Temp Pulse Pulse Resp BP BP Pulse Ox 01/09/25 02:22 64 01/09/25 01:00 90 18 169/90 H 97 01/09/25 00:24 94 01/08/25 23:26 70 18 170/90 H 96 01/08/25 22:29 74 01/08/25 21:59 97 01/08/25 21:59 36.5 C 74 20 156/106 H 97 O2 Del Method O2 Flow Rate 01/09/25 02:22 01/09/25 01:00 Nasal Cannula 4 01/09/25 00:24 Nasal Cannula 2 01/08/25 23:26 Room Air 01/08/25 22:29 01/08/25 21:59 Nasal Cannula 2 01/08/25 21:59 Nasal Cannula 2 Laboratory Results Laboratory Results WBC 6.27 K/ul (4.8-10.8) 01/09/25 00:24 RBC 4.95 M/uL (4.20-5.40) 01/09/25 00:24 Hgb 12.6 g/dl (12.0-16.0) 01/09/25 00:24 Hct 42.2 % (37.0-47.0) 01/09/25 00:24 MCV 85.3 fL (80.0-100.0) 01/09/25 00:24 MCH 25.5 pg (25.0-34.0) 01/09/25 00:24 MCHC 29.9 g/dL (32.0-36.0) L 01/09/25 00:24 RDW Std Deviation 52.2 fL (36.4-46.3) H 01/09/25 00:24 RDW Coeff of Otto 16.8 % (11.5-14.5) H 01/09/25 00:24 Plt Count 252 K/uL (130-400) 01/09/25 00:24 MPV 9.8 fL (9.4-12.4) 01/09/25 00:24 Immature Gran % (Auto) 0.3 % 01/09/25 00:24 Neut % (Auto) 76.7 % 01/09/25 00: Lymph % (Auto) 10.7 % 01/09/25 00:24 [place] % (Auto) 8.8 % 01/09/25 00:24 Eos % (Auto) 2.7 % 01/09/25 00:24 Baso % (Auto) 0.8 % 01/09/25: Neut # (Auto) 4.81 K/uL (1.40-6.50) 01/09/25 00:24 Lymph # (Auto) 0.67 K/uL (1.20-3.40) L 01/09/25: [place] # (Auto) 0.55 K/uL (0.11-0.59) 01/09/25 00:24 Eos # (Auto) 0.17 K/uL (0.00-0.50) 01/09/25 00:24 Baso # (Auto) 0.05 K/uL (0.00-0.20) 01/09/25 00: Immature Gran # (Auto) 0.02 K/uL (0.01-0.20) 01/09/25:24 PT 11.1 Seconds (9.0-12.0) 01/09/25: INR 1.0 (0.9-1.1) 01/09/25: APTT 27 Seconds (21-31) 01/09/25: PTT Ratio 1.0 01/09/25: VBG pH 7.23 (7.36-7.41) L 01/09/25 00:50 VBG pCO2 69 mmHg (38-50) H 01/09/25 00:50 VBG pO2 33 mmHg 01/09/25 00:50 VBG HCO3 29 mmol/L 01/09/25 00:50 VBG O2 Saturation < 60.0 % 01/09/25 00: VBG Base Excess -0.4 mEq/L 01/09/25 00: Sodium 136 mmol/L (136-145) 01/09/25:24 Potassium 4.4 mmol/L (3.5-5.1) 04/18/25 00:24 Chloride 102 mmol/L (98-107) 01/09/25 00:24 Carbon Dioxide 30 mmol/L (21-32) 01/09/25 00:24 Anion Gap 4 (3-11) 01/09/25 00:24 BUN 47 mg/dl (6-23) H 01/09/25 00:24 Creatinine 1.59 mg/dl (0.6-1.2) H 01/09/25 00:24 Est Cr Clr Drug Dosing 44.9 ml/min 01/09/25 00:24 eGFR 35.39 01/09/25 00:24 BUN/Creatinine Ratio 29.6 (10-20) H 01/09/25 00:24 Glucose 172 mg/dl (70-99(Fasting)) H 01/09/25 00:24 POC Glucose 169 mg/dl (70-99) H 01/08/25 21:58 Calcium 8.5 mg/dl (8.6-10.3) L 01/09/25 00:24 Magnesium 1.8 mg/dl (1.7-2.4) 01/09/25 00:24 Total Bilirubin 0.6 mg/dl (0.2-1.0) 01/09/25 00:24 AST 13 U/L (13-39) 01/09/25 00:24 ALT 8 U/L (7-52) 01/09/25 00:24 Alkaline Phosphatase 77 U/L (34-104) 01/09/25 00:24 Troponin I High Sens 17.4 pg/ml (0-14) H 01/09/25 02:24 B-Natriuretic Peptide 578 pg/ml (0-100) H 01/09/25 00:24 Total Protein 6.8 gm/dl (6.0-8.3) 01/09/25 00:24 Albumin 3.6 gm/dl (3.4-5.0) 01/09/25 00:24 Globulin 3.2 gm/dl (2.5-4.0) 01/09/25 00:24 Albumin/Globulin Ratio 1.1 (0.9-2) 01/09/25 00:24 Lipase 35 U/L (11-82) 01/09/25 00:24 Urine Color Yellow 01/09/25 00:24 Urine Appearance Clear (Clear) 04/18/25 00:24 Urine pH 5.0 (4.5-7.5) 01/09/25 00:24 Ur Specific Ferdinand 1.009 (1.000-1.030) 01/09/25 00:24 Urine Protein 1+ (Negative) H 01/09/25 00:24 Urine Glucose (UA) Negative (Negative) 01/09/25 00:24 Urine Ketones Negative (Negative) 01/09/25 00:24 Urine Blood Negative (Negative) 01/09/25 00:24 Urine Nitrite Negative (Negative) 01/09/25 00:24 Urine Bilirubin Negative (Negative) 01/09/25 00:24 Urine Urobilinogen Negative (Negative) 01/09/25 00:24 Ur Leukocyte Esterase Negative (Negative) 01/09/25 00:24 Urine WBC (Auto) 0-5 /hpf (0-5) 01/09/25 00:24 Urine RBC (Auto) 0-2 /hpf (0-2) 01/09/25 00:24 U Hyaline Cast (Auto) 3-5 /lpf (0-2) H 01/09/25 00:24 U Epithel Cells (Auto) 0-2 /hpf (0-2) 01/09/25 00:24 Urine Bacteria (Auto) None Seen (None Seen) 01/09/25 00:24 SARS-CoV-2 (PCR) NEGATIVE (Negative) 01/09/25 02:26 Influenza Type A (PCR) Negative (Neg) 01/09/25 02:26 Influenza Type B (PCR) Negative (Neg) 01/09/25 02:26 RSV (RT-PCR) Negative (Neg) 01/09/25 02:26 Impressions Chest X-Ray 01/09/25 00:24 EXAM: XR chest 1V portable CLINICAL HISTORY: Shortness of breath and history of congestive heart failure. TECHNIQUE: An X-ray image of the chest is obtained using an AP projection. COMPARISON: The available current CT chest PE protocol is reviewed. FINDINGS: Pulmonary Parenchyma: Prominent perihilar and right lower zone bronchovascular markings. Possible consolidation/atelectasis left lower zone. No pulmonary nodules are identified. Blunting of left costophrenic angle, representing mild pleural thickening. Heart and Mediastinum: The heart is enlarged. No mediastinal widening or masses. No hilar or mediastinal lymphadenopathy. Bony Thorax: Bony thorax appears intact without fractures or deformities. Soft Tissues: Elevated left diaphragm. IMPRESSION: Enlarged heart with prominent perihilar and right lower zone bronchovascular markings, representing pulmonary vascular congestion. (unchanged). Blunting of left costophrenic angle, representing mild pleural thickening(unchanged). Possible consolidation/atelectasis left lower zone. Concur with CT findings. Electronically signed by Jacky Villasenor 01-09-2025 02:34 AM Abdomen/Pelvis CT 01/09/25 00:26 EXAM: CT abd pelvis IV con only CLINICAL HISTORY: Abdominal pain TECHNIQUE: Multiple contiguous axial images were obtained from the level of diaphragm to the pubis symphysis. This study was acquired after the IV administration of iodinated contrast material, given the patient's indications for the examination. If IV contrast material had not been administered, the likelihood of detecting abnormalities relevant to the patient's condition would have been substantially decreased. Coronal and sagittal reformatted images were generated and reviewed to improve anatomic localization and optimize lesion detection. CT scan was performed according to ALARA (as low as reasonably achievable). COMPARISON: none FINDINGS: The visualized lung bases shows patchy consolidation in lingula and minimal left pleural effusion. Elevated left posterior hemidiaphragm. Cardiomegaly is detected. Minimal pericardial effusion is seen. ABDOMEN/PELVIS: Heterogeneous enhancement of the liver parenchyma is noted with patchy areas of hypodensities within. This could be due to secondary to underlying perfusion abnormality due to cardiac cause (in the background of diffuse subcutaneous edema). There is no intra or extrahepatic biliary ductal dilatation. Hepatic vasculature is patent. The gallbladder shows multiple small 2-3mm calculi within. Diffuse gallbladder wall edema is noted, likely pseudo edema due to underlying hepatic all cardiac cause rather than acute cholecystitis. Mild peripancreatic fat stranding at head region, mesentery and periduodenal region(D2 and D3 segment) with edematous wall thickening of duodenum. Perisplenic fluid is seen. The spleen and adrenal glands are unremarkable. The kidneys are normal in size and attenuation. There is no hydronephrosis. Bilateral perinephric fat stranding. No renal calculi or renal masses are identified. The ureters are normal in caliber and no ureteral calculi are seen. The bladder is mildly filled. Uterus and adnexa are unremarkable. No evidence of bowel obstruction is seen. The aorta is normal in caliber. No aggressive appearing osseous lesions are identified. Diffuse subcutaneous edema/thickening seen in lower anterior abdominal wall. IMPRESSION: 1. Cardiomegaly is detected. Minimal pericardial effusion is seen. 2. Mild peripancreatic fat stranding at head region, mesentery and periduodenal region(D2 and D3 segment) with edematous wall thickening of duodenum. Possible early interstitial pancreatitis/groove pancreatitis. Suggested serum amylase/lipase correlation. 3. Heterogeneous enhancement of the liver parenchyma is noted with patchy areas of hypodensities within. This could be due to secondary to underlying perfusion abnormality due to cardiac cause (in the background of diffuse subcutaneous edema). Suggested clinical/echocardiography correlation. 4. Perisplenic fluid is seen. 5. Cholelithiasis. Diffuse gallbladder wall edema is noted, likely pseudo edema due to underlying hepatic or cardiac cause more than acute cholecystitis. 6. Bilateral perinephric fat stranding. Suggested renal function test correlation. 7. Visualized lung bases shows patchy consolidation in lingula and minimal left pleural effusion. 8. Diffuse subcutaneous edema/thickening seen in lower anterior abdominal wall. Electronically signed by Darrius Aguilar 01-09-2025 03:02 AM Chest CTA 01/09/25 00:26 EXAM: CT angio chest PE protocol CLINICAL HISTORY: PE TECHNIQUE: Contiguous axial images were obtained from the neck base through the upper abdomen following intravenous administration of iodinated contrast material. Angiographic images were processed, 3D MIP images were acquired for interpretation. If IV contrast material had not been administered, the likelihood of detecting abnormalities relevant to the patient's condition would have been substantially decreased. Coronal and sagittal 3-D MIPs were likewise performed and indicated to increase the sensitivity of detectin diffuse clinically relevant pathology. CT scan was performed according to ALARA (as low as reasonable achievable). COMPARISON: none FINDINGS: Partial image degradation due to respiration related artefacts. Adequate contrast bolus without evidence of pulmonary embolism in main, left and right pulmonary and segmental arteries in both lungs. Subsegmental arteries are sub optimally visualsied due to partial image degradation. The central airways are patent. Mild left basal pleural thickening. Mild dependant reticular and ill defined ground glass opacities in basal segments of left lower lobe. Rest of the lungs are clear. No pleural effusion. The heart is mildly enlarged. Aorta is of normal size and configuration. There are no appreciable coronary artery and aortic atherosclerotic calcifications. No pericardial effusion is identified. The thyroid is unremarkable. No mediastinal, hilar, or axillary lymphadenopathy is noted. No suspicious lytic or sclerotic osseous lesions are identified. Cholelithiasis. splenomegaly perinephric fat stranding around left kidney. Mild ascites IMPRESSION: No evidence of pulmonary embolism. Dilated main pulmonary artery - Suggest 2D ECHO correlation for pulmonary hypertension. Mild left basal pleural thickening. Mild dependant reticular and ill defined ground glass opacities in basal segments of left lower lobe. Mild cardiomegaly. Cholelithiasis. Splenomegaly Perinephric fat stranding around left kidney. Mild ascites Electronically signed by Darrius Aguilar 01-09-2025 02:51 AM Diagnostic Findings EKG as per my interpretation :Rate 70, NSR, normal axis, low voltage, nonspecific T wave abnormalities
[2025-01-09] MEDS: MAGNESIUM SULFATE / D5W 1 GM/100 ML BAG IV ONE (04:17)
[2025-01-09] MEDS: METOPROLOL TARTRATE 1 MG/ML VIAL IV STA (04:17)
[2025-01-09] MEDS ORDERED: traMADol HCL 50 MG TABLET PO PRN (04:44)
--- NOTE | 2025-01-09 05:02 | Emergency Department Note ---
ED Visit Note I was consulted by the Advanced Practice Provider Ophelia Gonzalez PA-C. I performed a substantive portion of the visit including all aspects of medical decision making. .
[2025-01-09] MEDS ORDERED: GLUCAGON FOR INJ 1 MG VIAL SQ PRN (05:19)
[2025-01-09] MEDS ORDERED: GLUCOSE 10 TAB/TUBE PO PRN (05:19)
[2025-01-09] MEDS ORDERED: GLUCOSE 40% GEL 15 GM TUBE PO PRN (05:19)
[2025-01-09] MEDS ORDERED: DEXTROSE 50% 50 ML SYRINGE IV PRN (05:19)
[2025-01-09] MEDS ORDERED: CARBOHYDRATES FOR HYPOGLYCEMIA PO PRN (05:19)
--- OUTSIDE RECORDS SUMMARY | 2025-01-09 05:25 | External Medical Summary | Summary of Care ---
Author Name Unknown Organization [facility] Address [address] [place] [address] Phone [phone] Care Team Providers Care Medical Insurance Coder Name Role Phone Denis Urbina MD Primary Care Provider + [phone] Reason for Visit * Reason Onset Date Comments Rash 09/29/2024 Re: pt has red, itchy rash Advice 09/29/2024 Encounter Details Date Type Department Care Team (Late st Contact Info) Description 09/29/2024 Telephone [facility] [address] [place] [address] Denis Urbina MD [address] [place] [address] Rash (Re: pt has red, itchy rash); Advice Allergies No known active allergiesdocumented as of this encounter (statuses as of 12/30/2024) Medications Albuterol Sulfate (2.5 MG/3ML) 0.083% Inhalation Nebulization Solution (Proventil)Indic ations:Bronchiti s,Wheezing,Bronc hitis, complicated One vial in nebulizer every 4 hours as needed for wheezing 3 mL 1 021 Active Acetaminophen 325 MG Oral Tablet (Tylenol) Take 1 Tablet by mouth every 6 hours as needed for Pain, Mild. Active CPAP every night at bedtime . Active FreeStyle Maria Luz 2 Sensor Use as directed . 1 Each 10/04/2 022 Active FreeStyle Maria Luz 2 [place] Device Use as directed . 1 Each Active BD Insulin Syringe U/F 30G X 1/2" 0.3 ML (Insulin Syringe-Needle U-100)Indication s:Type 2 diabetes mellitus without complication (HCC),Type 2 diabetes mellitus without complication, with long-term current use of insulin (HCC) INJECT UNDER THE SKIN 4 TIMES A DAY 100 Each 2 023 Active Droplet Pen [place] 31G X 5 MM (Insulin Pen Needle)Indicatio ns:Type 2 diabetes mellitus without complication, with long-term current use of insulin (HCC) inject subcutaneously four times a day 1000 Each 023 Active OneTouch UltraSoft LancetsIndicatio ns:Type 2 diabetes mellitus without complication, unspecified whether correction insulin use (HCC) Use as directed 4 times a day as needed for Other (to check BS). Use up to four times a day as directed 100 Each 5 Active ReliOn Premier Classic Device Use to test blood sugar as directed Active RA Melatonin 1 MG Sublingual Tablet Sublingual (Melatonin)Indic ations:Insomnia, unspecified type take 1 tablet by mouth at bedtime if needed for insomnia 30 Tablet 5 Active ReliOn Premier Test In Vitro Strip (Glucose Blood) Use to test blood sugar 4 times daily as directed 100 Strip Active Insulin Glargine Solostar 100 UNIT/ML Subcutaneous Solution Pen-injector (Basaglar KwikPen) Inject 15 units once daily at bedtime. Dx Code E 11.9 15 mL 3 Active Additional Information Patient taking differently: Inject 21 units once daily at bedtime., Informant: Patient, Pharmacy, Reported on 12/23/2024 NovoLOG FlexPen 100 UNIT/ML Subcutaneous Solution Pen-injector (insulin aspart) Inject 12 units + scale three times a day with meals. Max of 20 units three times a day with meals. 15 mL 3 Active Bromfenac Sodium (Once-Daily) 0.09 % Ophthalmic Solution Instill 1 Drop into eye daily at noon. 2 mL 1 Active Additional Information Patient not taking.Informant: Patient, Pharmacy, Reported on 11/04/2024 Cyanocobalamin 1000 MCG Sublingual Tablet SublingualIndica tions:B12 [address] 1,000MCG UNDER THE TONGUE DAILY 90 Tablet 1 Active Fluticasone Propionate 50 MCG/ACT Nasal Suspension (Flonase)Indicat ions:Rhinosinusi tis Administer 2 Sprays into each nostril in the morning. 1 Each 5 Active Gabapentin 100 MG Oral Capsule (Neurontin) Take 2 Capsules by mouth in the morning and 2 Capsules at noon and 2 Capsules before bedtime. 90 Capsule 5 Active Simvastatin 20 MG Oral Tablet (Zocor) Take 1 Tablet by mouth every evening. 90 Tablet Active Carvedilol 3.125 MG Oral Tablet (Coreg) Take 1 Tablet by mouth 2 times a day with morning and evening meals. 180 Tablet 3 Active Ondansetron 4 MG Oral Tablet Disintegrating (Zofran)Indicati ons:Nausea Place 1 Tablet on tongue every 8 hours as needed for Nausea. dissolve on tongue. 30 Tablet 1 Active Omeprazole 20 MG Oral Capsule Delayed Release (PriLOSEC)Indica tions:Gastroesop hageal reflux disease without esophagitis take 1 capsule by mouth every morning 90 Capsule 1 024 2024 Discontinued valACYclovir HCl 1 GM Oral Tablet (Valtrex)Indicat ions:Rash and nonspecific skin eruption Take 1 Tablet by mouth in the morning and 1 Tablet at noon and 1 Tablet before bedtime. Do all this for 7 days. For 7 days for shingles. 21 Tablet 024 2024 Discontinued Escitalopram Oxalate 10 MG Oral Tablet (Lexapro)Indicat ions:Episode of recurrent major depressive disorder, unspecified depression episode severity (HCC) Take 1 Tablet by mouth in the morning. In the morning.. 90 Tablet 1 024 2024 Discontinued hydrOXYzine HCl 25 MG Oral TabletIndication s:Episode of recurrent major depressive disorder, unspecified depression episode severity (HCC) Take 1 Tablet by mouth 3 times a day as needed for Anxiety. 90 Tablet 1 024 2024 Discontinued Pregabalin 25 MG Oral Capsule (Lyrica)Indicati ons:Type 2 diabetes mellitus with diabetic polyneuropathy, with long-term current use of insulin (HCC) Take 1 Capsule by mouth in the morning. 30 Capsule 024 2024 Discontinued(M edication List Clean Up) Vitamin D3 50 MCG (1999) Oral CapsuleIndicatio ns:Vitamin D deficiency Take 1 Capsule by mouth in the morning. Every morning.. 90 Capsule 1 2024 Discontinued Torsemide 20 MG Oral Tablet (Demadex) Take 3 Tablets by mouth in the morning. 90 Tablet 11 2024 Discontinued amLODIPine Besylate 5 MG Oral Tablet (Norvasc) Take 1 Tablet by mouth in the morning. 90 Tablet 3 2024 Discontinued Vitamin B-12 1000 MCG Oral Tablet (Cyanocobalamin) PLACE 1,000MCG UNDER THE TONGUE DAILY 90 Tablet 3 2024 Discontinued( edication List Clean Up) Multivitamin Adult Oral Tablet Take 1 tablet by mouth daily. 30 Tablet 3 2024 Discontinued( edication List Clean Up) Silver sulfADIAZINE 1 % External Cream (Silvadene)Indic ations:Wound of right lower extremity, initial encounter Apply topically to affected area daily. Apply to wound on RLE once daily with dressing changes. 85 g 1 2024 Discontinued(M edication List Clean Up) Sulfamethoxazole -Trimethoprim 800-160 MG Oral Tablet (Bactrim DS)Indications:W ound of right lower extremity, initial encounter Take 1 Tablet by mouth in the morning and 1 Tablet before bedtime. Do all this for 7 days. Until gone.. 14 Tablet 2024 Discontinued Doxycycline Hyclate 100 MG Oral CapsuleIndicatio ns:Type 2 diabetes with skin ulcer of lower extremity (HCC),Skin ulcer of multiple sites of lower extremity, unspecified laterality, limited to breakdown of skin (HCC) Take 1 Capsule by mouth in the morning and 1 Capsule before bedtime. 20 Capsule 024 2024 Discontinued(M edication List Clean Up) traMADol HCl 50 MG Oral Tablet (Ultram)Indicati ons:Skin ulcer of multiple sites of lower extremity, unspecified laterality, limited to breakdown of skin (HCC) Take 1 Tablet by mouth every 8 hours as needed for Pain, Moderate. 15 Tablet 024 2024 Discontinued Hospital, Clinic, or Other Facility Administered Medication Ordered Dose Route Frequency Start Date End Date Status Aflibercept (Eylea) intraviteal prefilled syringe 2 mgIndications:Moderate nonproliferative diabetic retinopathy of both eyes with macular edema associated with type 2 diabetes mellitus (HCC),Optic nerve drusen, left,6th nerve palsy, right,Combined forms of age-related cataract of both eyes 2 mg IZ PRN 04/17/2024 04/17/2025 Active Aflibercept (Eylea) intraviteal prefilled syringe 2 mgIndications:Moderate nonproliferative diabetic retinopathy of both eyes with macular edema associated with type 2 diabetes mellitus (HCC),Optic nerve drusen, left,6th nerve palsy, right,Combined forms of age-related cataract of both eyes 2 mg IZ PRN 04/17/2024 04/17/2025 Active lidocaine-epinephrine 2 %-[id number] inj 6 mgIndications:Moderate nonproliferative diabetic retinopathy of both eyes with macular edema associated with type 2 diabetes mellitus (HCC),Optic nerve drusen, left,6th nerve palsy, right,Combined forms of age-related cataract of both eyes 6 mg IJ PRN 04/17/2024 04/17/2025 Active documented as of this encounter (statuses as of 12/30/2024) Active Problems Problem Noted Date Diagnosed Date Excoriation 10/10/2024 Hyperkalemia 10/04/2024 Cellulitis 10/04/2024 Assessment & Plan (12/14/2024 1:58 PM EDT): - XR TIB/FIB 2 VIEWS - XR FOOT 3 OR MORE VIEWS - No evidence of osteomyelitis on the above images per my interpretation, will f/u final read - Doxycycline 100 mg PO BID x 10 days, complete until gone - Mupirocin ointment, apply topically to R knee abrasion BID x 7-10 days - Please watch for spreading cellulitis, increased pain, foul smelling or purulent discharge from the wound, new fevers/chills. These are signs of worsening infection and would warrant re-evaluation Acute on chronic respiratory failure with hyperc apnia 10/04/2024 Venous stasis ulcers of both lower extremities 1 Chronic kidney disease, stage 4 (severe) 024 Acute renal failure superimp osed on stage 3b chronic kidney disease 06/02/2024 Overview: Per CKD protocol Onychomycosis of nail of digit of hand COPD, group C, by GOLD 2017 classification 02/03 Overview: Per COPD GOLD Classification Chronic kidney disease with symptom management only, stage 3 (moderate) 01/16/2024 Food insecurity 12/31/2023 Overview: Per [facility] Protocol Acute respiratory failure with hypercapnia 12/06 Heart failure, systolic and diastolic, acute on chronic 12/06/2023 Chronic respiratory failure with hypoxia and hyp ercapnia 10/28/2023 Moderate nonproliferative di abetic retinopathy of both eyes with macular edema associated with type 2 diabetes mellitus 10/28/2023 Choledocholithiasis 05/11/2023 Obesity hypoventilation syndrome 06/28/2022 Lesion of bone of cervical spine 06/28/2022 BMI 40.0-44.9, adult 06/28/2022 Anxiety state 06/28/2022 Right abducens nerve palsy 06/19/2022 Type 2 diabetes mellitus wit h diabetic polyneuropathy, with long-term current use of insulin 12/10/2019 Assessment & Plan (12/14/2024 1:58 PM EDT): - GLUCOSE METER, POINT OF CARE: 249 - I suspect BGL is elevated due to active infection. Patient to correct with insulin when she returns home DDD (degenerative disc disease), lumbar 05/15/20 16 SOB (shortness of breath) 12/26/2015 HTN, goal below 140/90 11/07/2014 Tobacco use disorder 04/10/2013 Vitamin deficiency 10/26/2009 Dyslipidemia, goal LDL below 100 09/13/2009 Overview (09/13/2009): Per Lipid Taxonomy. Rosacea 04/20/2008 ARTHRITIS -HANDS 07/21/2007 Major depressive disorder 07/15/2007 Overview (07/17/2017): ICD-10 update of inactive term Restless leg syndrome SLEEP APNEA, UNSPECIFIED History of colonic polyps Overview (06/25/2017): ICD-10 update of inactive term PPD positive documented as of this encounter (statuses as of 12/30/2024) Resolved Problems Problem Noted Date Diagnosed Date Resolved Date COPD, severe 01/16/2024 02/06/2024 Overview: Per COPD GOLD Classification Suspected sleep apnea 12/11/20232023 Acute kidney injury superimp osed on chronic kidney disease 12/08/2023 06/05/2024 Overview: Per CKD protocol Acute on chronic heart failu re with preserved ejection fraction (HFpEF) 10/28/2023 06/13/2024 Chronic kidney disease, stage 3b 10/28/2023 01/03/2024 COPD, group C, by GOLD 2017 classification 05/07/2023 01/16/2024 Overview: Per COPD GOLD Classification Sepsis 05/04/2023 05/10/2023 Gastroesophageal reflux dise ase without esophagitis 05/04/2023 01/16/2024 Abdominal wall abscess 05/04/202301/15 Mild protein-calorie malnutrition 03/12/2023 06/06/2023 Sepsis with acute hypoxic re spiratory failure without septic shock 03/06/2023 06/29/2023 Acute on chronic respiratory failure with hypoxia and hypercapnia 06/28/2022 01/16/2024 Reactive airway disease 06/28/202212/24 Rhinovirus infection 06/28/2022 024 Bacterial pneumonia 06/28/2022 01/16/20 Leukocytosis 06/28/2022 05/10/2023 Kidney disease, chronic, sta ge III (GFR 30-59 ml/min) 06/28/2022 01/03/2024 Heart failure, diastolic, wi th acute decompensation 06/19/2022 06/13/2024 Chronic venous hypertension with ulcer 05/05/2022 06/29/2023 Diabetic retinopathy of righ t eye associated with type 2 diabetes mellitus 06/08/2021 01/16/2024 Acute appendicitis 01/29/2017 9 Status post laparoscopic appendectomy 01/29/2017 01/16/2024 Controlled substance agreement signed 01/28/2017 03/24/2019 Type 2 diabetes mellitus wit hout complication, with long-term current use of insulin 01/02/2017 01/16/2024 Type 2 diabetes mellitus without complication 01/11/20 16 01/16/2024 Influenza A 12/29/2015 03/24/2019 COPD, severity to be determined 12/26/2015 05/10/2023 Overview: Per COPD GOLD Classification Hypoxia 12/26/2015 03/24/2019 Dyslipidemia 12/26/2015 01/16/2024 RUQ pain 12/27/2014 12/06/2023 VITAMIN D DEFICIENCY NOS 02/23/2011 Obesity, morbid (more than 1 00 lbs over ideal weight or BMI > 40) 12/21/2009 01/03/2024 Overview (12/13/2015): Per Obesity Taxonomy ICD-10 update of inactive term Morbid obesity, BMI not known 10/26/2009 12/21/2009 Overview (12/21/2009): Per Obesity Taxonomy HTN, GOAL BELOW 130/80 08/17/200905/16 Overview (08/17/2009): Modified per HTN protocol #16. Type 2 diabetes mellitus wit h hemoglobin A1c goal of less than 7.0% 07/08/2009 01/11/2016 Overview (01/18/2016): Modified per Diabetes protocol #14. ICD-10 update of inactive term DM type 2, not at goal 09/30/200707/08 Overview (07/08/2009): Modified per Diabetes protocol #14. Dyslipidemia, goal to be determined 09/13/2009 Overview (09/13/2009): Per Lipid Taxonomy. HTN, goal to be determined 1 10/17/2008 Overview (08/17/2009): Modified per HTN protocol #16. Obesity, BMI not known 12/21 Overview (12/21/2009): Per Obesity Taxonomy documented as of this encounter (statuses as of 12/30/2024) Immunizations Name Administration Dates Next Due Covid-19 Ad26, Single Dose ([place]/J&J) 021 Hepatitis B, 20+ yrs 12/08/2014,03/31/2011,02/23 Pneumococcal Conjugate Vacci ne, 20-valent ([id number]) 06/06/2023 Pneumococcal Polysaccharide PPV23 (Pneumovax) 02/10/2011 Seasonal Influenza, Quadriva lent Hd (Fluzone Hd) 12/17/2023() TDAP, Age 7 and older, IM (Adacel) 06/07/2011 Tetanus Toxid Adsorbed 09/14/2007 documented as of this encounter Social History Tobacco Use Types Packs/Day Years Used Date Smoking Tobacco: Former Cigarettes 0.1 3 0 03/08/2019 - 03/08/2022 Smokeless Tobacco: Never Comments:smoked in college a lso Alcohol Use Standard Drinks/Week Comments Yes 0 (1 standard drink = 0.6 oz pur e alcohol) rarely PHQ-2 Answer Date Recorded PHQ Adult Total Score 0 12/20/2023 Hunger Vital Sign Answer Date Recorded Within the past 12 months, y ou worried that your food would run out before you got the money to buy more. Sometimes true Within the past 12 months, t he food you bought just didn't last and you didn't have money to get more. Sometimes true 09/2024 Childcare Answer Date Recorded Do you feel overwhelmed with taking care of a child, family member or friend? No 12/23/2024 Does your family need help f inding childcare? (Household - for ages 0-17 years) Not on file 12/23/2024 Clothing Answer Date Recorded Have you been unable to get clothing when it was really needed? No 12/23/2024 Is your family able to get c lothes or diapers when needed? (Household - for ages 0-17 years) Not on file 12/23/2024 Personal Safety Answer Date Recorded Do you feel unsafe or have concerns for your saf ety? No 12/23/2024 Do you have concerns for you r family's safety? (Household - for ages 0-17 years) Not on file 12/23/2024 Utilities Answer Date Recorded Do you have trouble paying y our heating, water, or electric bill? No 12/23/2024 Is your family able to pay t he heat, water, or electric bill? (Household - for ages 0-17 years) Not on file 12/23/2024 Does your family have access to good internet? (Household - for ages 0-17 years) Not on file 12/23/2024 Employment Status Answer Date Recorded Are you unemployed or without regular income? No 12/23/2024 Does the household have a re gular source of income? (Household - for ages 0-17 years) Not on file 12/23/2024 Social Connections Answer Date Recorded How often do you feel lonely or isolated from th ose around you? Never 12/23/2024 Financial Resource Strain Answer Date R ecorded Do you have any trouble payi ng for your medications, or do you think you might in the future? No 12/23/2024 Does your family have troubl e paying for medicine? (Household - for ages 0-17 years) Not on file 12/23/2024 Transportation Needs Answer Date Record ed READ ONLY Do you have troubl e getting a ride to medical visits or work? Never True 12/23/2024 Does your family have a hard time getting a ride to doctors visits? (Household - for ages 0-17 years) Not on file 12/23/2024 Has lack of transportation k ept you from medical appointments, meetings, work, or from getting things needed for daily living? Check all that apply. No 12/23/2024 Do you (or your family) have trouble finding or paying for a ride (transportation)? (Household - for ages 0-17 years) Not on file 12/23/2024 Housing Stability Answer Date Recorded Do you currently live in a s helter or have no steady place to sleep at night? No 12/23/2024 READ ONLY Do you think you a re at risk of becoming homeless? Yes 12/23/2024 Does your family worry about paying for your home or becoming homeless? (Household - for ages 0-17 years) Not on file 0 12/23/2024 Are you homeless or worried that you might be in the future? No 12/23/2024 Are you (or your family) lionel eless or worried that you might be in the future? (Household - for ages 0-17 years) Not on file Food Insecurity Answer Date Recorded Do you need food for this week? No 10/03/2024 Are you able to get enough f ood for your family? (Household - for ages 0-17 years) Not on file 10/03/2024 Does your family need food t his week? (Household - for ages 0-17 years) Not on file 10/03/2024 Do you always have enough fo od for your family? (Household - for ages 0-17 years) Not on file 10/03/2024 Food Insecurity Answer Date Recorded Within the past 12 months, y ou worried that your food would run out before you got the money to buy more. Sometimes true Within the past 12 months, t he food you bought just didn't last and you didn't have money to get more. Sometimes true 09/2024 Do you need food for this week? 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 Answer Date of Assessment Author No 05/01/2024 5:23 PM Oswaldo Dill RN * Are you blind or do you have serious difficulty seeing, even when wearing glasses? Answer Date of Assessment Author No 05/01/2024 5:23 PM Oswaldo Dill RN * Do you have serious difficulty walking or climbing stairs? (5 years old or older) Answer Date of Assessment Author No 05/01/2024 5:23 PM Oswaldo Dill JUANA * Do you have difficulty dressing or bathing? (5 years old or older) Answer Date of Assessment Author No 05/01/2024 5:23 PM Oswaldo Dill RN * Because of a physical, mental, or emotional condition, do you have difficulty doing errands alone such as visiting a doctor’s office or shopping? (15 years old or older) Answer Date of Assessment Author No 05/01/2024 5:23 PM Oswaldo Dill RN documented as of this encounter Mental Status * Because of a physical, mental, or emotional condition, do you have serious difficulty concentrating, remembering, or making decisions? (5 years old or older) Answer Entry Date Author No 05/01/2024 5:23 PM Oswaldo Dill RN documented in this encounter Miscellaneous Notes * Telephone Encounter - Brittany Loo LPN - 10/02/2024 9:04 AM EST Patient was seen in 09/30/24 * Telephone Encounter - Denis Urbina MD - 10/01/2024 6:56 PM EST Can't say without seeing it * Telephone Encounter - Silvino Mehta OSA - 09/30/2024 4:22 PM EST Mable from [facility] calling about Pt who has a rash asking if it is contagious if so they are unable to go out for for wound care. Due for prison on 10/01/24. Please advise? [phone] * Telephone Encounter - Ana Orlando PA-C - 09/29/2024 1:43 PM EST Triage ? Scabies if they both have it * Telephone Encounter - Paty Crowell LPN - 09/29/2024 12:13 PM EST Theodore nurse, Geri, called regarding pt has a red, very itchy rash over her entire body and granddaughter has also. It appeared approximately 2 days ago. Pt denies changing any soaps, lotions, creams for bathing or laundry. Also,no change in eating habits. HH per pt request is asking for medication for the itching. Please call and advise: [phone] TERESITA Newman DNL * Telephone Encounter - Melody Ny OSA - 09/29/2024 12:05 PM EST Meera calling from [facility], transferred to dedicated nurse line. documented in this encounter Plan of Treatment Upcoming Encounters Date Type Department Care Team (Late st Contact Info) Description 01/07/2025 12:45 PM EDT Appointment Radiology Kymberly ALLEN [address] [place] [phone] 01/22/2025 1:15 PM EDT Imaging Radiology [facility] [address] [place] [address] 02/09/2025 10:00 AM EDT Office Visit Pulmonary Medicine Kymberly EDMOND [address] [place] [phone] Braxton Elizalde MD [address] [facility] [place] [address] Health Maintenance Due Date Last Done Comments DXA Scan 1957 Alpha-1 Antitrypsin 1975 Cologuard 2002 Colonoscopy 2002 Sigmoidoscopy 2002 Zoster Vaccines (1 of 2) 2007 Mammogram 03/02/2011 03/02/2010, 02/16/2010 DISCUSS TOBACCO CESSATION (REFER TO SMARTSET #3291) 12/09/2015 12/08/2014, 11/06/2014, 04/10/2013 DTap/Tdap Vaccines (2 - Td or Tdap) 06/07/2021 06/07/2011 Albumin/Creatinine Ratio 12/02/2021 021, 04/19/2016, 10/10/2012 Adult Wellness Visit 2023 Colorectal Cancer Screening 03/29/2024 Fecal Occult Blood Test 03/29/2024 03/29/20 23, 03/27/2023, 02/17/2010 COVID-19 Vaccine (2 - season) 2024 06/18/2021 Diabetic Foot Exam 06/06/2024 06/06/2023, 0 12/17/2020, 01/02/2017, Additional history exists Depression Monitoring 12/19/2024 12/20/2023 HbA1c 04/02/2025 10/03/2024, 08/0 04/2024, 04/24/2024, Additional history exists GFR 05/03/2025 11/03/2024, 02/0 11/2024, 10/20/2024, Additional history exists Influenza Vaccine (FLU shot) (Season Ended) 2025 Diabetic Eye Exam 11/04/2025 11/04/2024, , 11/04/2024, Additional history exists O2 ASSESSMENT COMPLETED IN PAST YEAR FOR COPD 12/14/2025 12/14/2024 Lipid Panel 04/24/2029 04/24/2024, 08/0 09/2023, 12/26/2023, Additional history exists Pap Smear Discontinued 02/17/2010 Hepatitis B Vaccine Completed 12/08/2014, 03/31/2011, 02/23/2011 Pneumococcal Vaccine: 50+ Years Completed 06/06/2023, 04/04/2023, 02/10/2011 HPV (Gardasil) Vaccine Aged Out No lo nger eligible based on patient's age to complete this topic MENINGOCOCCAL (MENACTRA/MENVEO) Aged Out No longer eligible based on patient's age to complete this topic Meningitis B Vaccine (Bexsero/Trumemba) Aged Out No longer eligible based on patient's age to complete this topic documented as of this encounter Medical Devices Implanted Type Area Obiee Report Developer Device Identifier Shelf Expiration Date Model / Serial / Lot Cath Drainage 10fr [facility]-10-038 - [id number] Implanted:Qty : 1 on 05/07/2023 at [facility] Right: Abdomen [facility] [employer] [id number] 02/15/2026 [facility]-10-03 8 / / [id number] documented as of this encounter Additional Health Concerns Infection Onset Date Last Indicated Resolved Time Varicella zoster Comment:No concern for shingles reactivation noted on 10/03/[address] Harden 06/02/2024 06/02/2024 10/03/2024 1:19 PM EST Per Infection Control - Cont act Isolation Comment:R/o scabies per Dr. Harden 10/03/24 Treatment completed on 10/02/24 & 10/05/24 10/03/2024 10/03/2024 10/08/2024 7:[address] Respiratory Rule-Out 10/05/2024 10/05/2024 025 2:19 PM EST COVID-19 Rule-Out 10/05/2024 10/05/2024 10/05/2024 2:19 PM EST Respiratory Rule-Out 10/27/2024 10/27/2024 025 4:46 PM EST documented as of this encounter Advance Directives * Full Code (Latest Code Status on File) Date Activated Date Inactivated Comments 10/02/2024 11:07 PM 10/10/2024 10:36 PM This order reflects the patients wishes and were consensually agreed upon. Question Answer Comments Discussion of Advance Directives occurred with: Patient * Full Code Date Activated Date Inactivated Comments 04/30/2024 9:47 PM 05/08/2024 8:04 PM This order re flects the patients wishes and were consensually agreed upon. Question Answer Comments Discussion of Advance Directives occurred with: Patient Does the patient have a Living Will? No Does the patient have Health Care Power of Attor cristin? No * Full Code Date Activated Date Inactivated Comments 12/06/2023 10:32 PM 12/18/2023 6:05 PM This order reflects the patients wishes and were consensually agreed upon. Question Answer Comments Discussion of Advance Directives occurred with: Patient Does the patient have a Living Will? No Does the patient have Health Care Power of Attor cristin? No * Full Code Date Activated Date Inactivated Comments 09/15/2023 6:16 AM 09/21/2023 11:59 PM This orde r reflects the patients wishes and were consensually agreed upon. Question Answer Comments Discussion of Advance Directives occurred with: Patient * Full Code Date Activated Date Inactivated Comments 05/04/2023 11:58 PM 05/10/2023 8:44 PM This order reflects the patients wishes and were consensually agreed upon. Question Answer Comments Discussion of Advance Directives occurred with: Patient Does the patient have a Living Will? No Does the patient have Health Care Power of Attor cristin? No Care Teams Medical Insurance Coder Relationship Specialty Start Date End Date Denis Urbina MD [address] [place] [address] PCP - General Family Medicine 04/17/22 documented as of this encounter
--- OUTSIDE RECORDS SUMMARY | 2025-01-09 05:25 | External Medical Summary | Summary of Care ---
Author Name Unknown Organization [facility] Address [address] [address] Phone [phone] Care Team Providers Care Shearing Shed Worker Name Role Phone Denis Urbina MD Primary Care Provider [phone] Reason for Visit * Reason Onset Date Comments FYI 10/01/2024 Encounter Details Date Type Department Care Team (Late st Contact Info) Description 10/01/2024 Telephone Wound Care Angie Teran [address] [place] [address] Paul Peng, [address] [address] FYI Allergies No known active allergiesdocumented as of this encounter (statuses as of 01/01/2025) Medications Albuterol Sulfate (2.5 MG/3ML) 0.083% Inhalation Nebulization Solution (Proventil)Indicat ions:Bronchitis,Wh eezing,Bronchitis, complicated One vial in nebulizer every 4 hours as needed for wheezing 3 mL 1 06/08/20 21 Active Acetaminophen 325 MG Oral Tablet (Tylenol) Take 1 Tablet by mouth every 6 hours as needed for Pain, Mild. Active CPAP every night at bedtime . Active FreeStyle Maria Luz 2 Sensor Use as directed . 1 Each 06/27/20 22 Active FreeStyle Maria Luz 2 [place] Device Use as directed . 1 Each 06/27/20 22 Active BD Insulin Syringe U/F 30G X 1/2" 0.3 ML (Insulin Syringe-Needle U-100)Indications: Type 2 diabetes mellitus without complication (HCC),Type 2 diabetes mellitus without complication, with long-term current use of insulin (HCC) INJECT UNDER THE SKIN 4 TIMES A DAY 100 Each 2 06/06/20 23 Active Droplet Pen [place] 31G X 5 MM (Insulin Pen Needle)Indications :Type 2 diabetes mellitus without complication, with long-term current use of insulin (HCC) inject subcutaneously four times a day 1000 Each 06/07/20 23 Active OneTouch UltraSoft LancetsIndications :Type 2 diabetes mellitus without complication, unspecified whether penitentiary insulin use (HCC) Use as directed 4 times a day as needed for Other (to check BS). Use up to four times a day as directed 100 Each 5 10/31/19 24 Active ReliOn Premier Classic Device Use to test blood sugar as directed 12/24/19 24 Active RA Melatonin 1 MG Sublingual Tablet Sublingual (Melatonin)Indicat ions:Insomnia, unspecified type take 1 tablet by mouth at bedtime if needed for insomnia 30 Tablet 5 12/24/19 24 Active ReliOn Premier Test In Vitro Strip (Glucose Blood) Use to test blood sugar 4 times daily as directed 100 Strip 12/24/19 24 Active Insulin Glargine Solostar 100 UNIT/ML Subcutaneous Solution Pen-injector (Basaglar KwikPen) Inject 15 units once daily at bedtime. Dx Code E 11.9 15 mL 3 01/16/20 24 Active Additional Information Patient taking differently: Inject 21 units once daily at bedtime., Informant: Patient, Pharmacy, Reported on 12/23/2024 NovoLOG FlexPen 100 UNIT/ML Subcutaneous Solution Pen-injector (insulin aspart) Inject 12 units + scale three times a day with meals. Max of 20 units three times a day with meals. 15 mL 3 01/16/20 24 Active Bromfenac Sodium (Once-Daily) 0.09 % Ophthalmic Solution Instill 1 Drop into eye daily at noon. 2 mL 1 06/04/20 24 Active Additional Information Patient not taking.Informant: Patient, Pharmacy, Reported on 11/04/2024 Cyanocobalamin 1000 MCG Sublingual Tablet SublingualIndicati ons:B12 [address] ,000MCG UNDER THE TONGUE DAILY 90 Tablet 06/04/20 24 Active Fluticasone Propionate 50 MCG/ACT Nasal Suspension (Flonase)Indicatio ns:Rhinosinusitis Administer 2 Sprays into each nostril in the morning. 1 Each 06/04/20 Active Gabapentin 100 MG Oral Capsule (Neurontin) Take 2 Capsules by mouth in the morning and 2 Capsules at noon and 2 Capsules before bedtime. 90 Capsule 06/04/20 24 Active Simvastatin 20 MG Oral Tablet (Zocor) Take 1 Tablet by mouth every evening. 90 Tablet 06/04/20 24 Active Carvedilol 3.125 MG Oral Tablet (Coreg) Take 1 Tablet by mouth 2 times a day with morning and evening meals. 180 Tablet 06/04/20 Active Ondansetron 4 MG Oral Tablet Disintegrating (Zofran)Indication s:Nausea Place 1 Tablet on tongue every 8 hours as needed for Nausea. dissolve on tongue. 30 Tablet 06/09/20 Active Hospital, Clinic, or Other Facility Administered Medication [...] IZ PRN 04/17/2024 04/17/2025 Active lidocaine-epinephrine 2 %-1:728822 inj 6 mgIndications:Moderate nonproliferative diabetic retinopathy of both eyes with macular edema associated with type 2 diabetes mellitus (HCC),Optic nerve drusen, left,6th nerve palsy, right,Combined forms of age-related cataract of both eyes 6 mg IJ PRN 04/17/2024 04/17/2025 Active documented as of this encounter (statuses as of 01/01/2025) Active Problems Problem Noted Date Diagnosed Date [...] as of this encounter (statuses as of 01/01/2025) Resolved Problems Problem Noted Date Diagnosed Date [...] and hypercapnia 06/28/2022 01/16/2024 Reactive airway disease 06/28/2022 042 12/2023 Rhinovirus infection 06/28/2022 024 Bacterial pneumonia 06/28/2022 [...] 01/16/2024 Type 2 diabetes mellitus without complication 01/11/2001/16/2024 Influenza A 12/29/2015 03/24/2019 COPD, severity to [...] as of this encounter (statuses as of 01/01/2025) Immunizations Name Administration Dates Next Due Covid-19 Ad26, Single Dose ([place]/J&J) 021 Hepatitis B, 20+ yrs 12/08/2014,03/31/2011,02/23 Pneumococcal Conjugate Vacci ne, 20-valent ([id number]) 06/06/2023 Pneumococcal Polysaccharide PPV23 (Pneumovax) 02/10/2011 Seasonal [...] of Assessment Author No 05/01/2024 5:23 PM EDT Oswaldo Glover RN * Are you blind or do you have serious difficulty seeing, even when wearing glasses? Answer Date of Assessment Author No 05/01/2024 5:23 PM EDOswaldo Root RN * Do you have serious difficulty walking or climbing stairs? (5 years old or older) Answer Date of Assessment Author No 05/01/2024 5:23 PM Oswaldo Dill RN * Do you have difficulty dressing or [...] Entry Date Author No 05/01/2024 5:23 PM EDT Oswaldo Glover RN documented in this encounter Miscellaneous Notes * Telephone Encounter - Shelly Ferro OSA - 10/01/2024 8:34 AM EST Geri from home health is calling to make the office aware her services will be put on hold as her and her family just tested positive for scabies. If you have any questions [phone] PAOLA Rojas documented in this encounter Plan of Treatment Upcoming Encounters Date Type Department Care Team (Late st Contact Info) Description 01/07/2025 12:45 PM EDT Appointment Radiology [facility] [address] [facility] [place] [address] 01/22/2025 1:15 PM EDT Imaging Radiology [facility] [address] [place] [address] 02/09/2025 10:00 AM EDT Office Visit Pulmonary Medicine GW RUTHKymberly Vicente [address] [facility] [place] [address] Braxton Elizalde MD [address] [facility] [place] [address] Health Maintenance Due Date Last Done Comments [...] this encounter Medical Devices Implanted Type Area Worm Picker Device Identifier Shelf Expiration Date Model / Serial / Lot Cath Drainage 10fr [facility]-10-038 - [id number] Implanted:Qty : 1 on 05/07/2023 at [facility] Right: Abdomen [employer] [id number] 02/15/2026 [facility]-10-03 8 / / [id number] documented as of this encounter Additional Health [...] Power of Attor cristin? No Care Teams Shearing Shed Worker Relationship Specialty Start Date End Date Denis Urbina MD [address] [place] [address] PCP - General Family Medicine 04/17/22 documented as of this encounter
--- OUTSIDE RECORDS SUMMARY | 2025-01-09 05:25 | External Medical Summary | Summary of Care ---
Author Name Unknown Organization [facility] Address [address] [place] [address] Phone [phone] Care Team Providers Care Recreation Facilities Supervisor Name Role Phone Denis Urbina MD Primary Care Provider + [phone] Encounter Details Date Type Department Care Team (Late st Contact Info) Description 10/01/2024 Telephone [facility] [address] [place] [address] Denis Urbina MD [address] [place] [address] Allergies No known active allergiesdocumented as of this encounter (statuses as of 01/01/2025) Medications Albuterol Sulfate (2.5 MG/3ML) 0.083% Inhalation Nebulization Solution (Proventil)Indic ations:Bronchiti s,Wheezing,Bronc hitis, complicated One vial in nebulizer every 4 hours as needed for wheezing 3 mL 1 Active Acetaminophen 325 MG Oral Tablet (Tylenol) Take 1 Tablet by mouth every 6 hours as needed for Pain, Mild. Active CPAP every night at bedtime . Active FreeStyle Maria Luz 2 Sensor Use as directed . 1 Each 022 Active FreeStyle Maria Luz 2 [place] Device Use as directed . 1 Each 022 Active BD Insulin Syringe U/F 30G X 1/2" 0.3 ML (Insulin Syringe-Needle U-100)Indication s:Type 2 diabetes mellitus without complication (HCC),Type 2 diabetes mellitus without complication, with long-term current use of insulin (HCC) INJECT UNDER THE SKIN 4 TIMES A DAY 100 Each 2 023 Active Droplet Pen [place] 31G X 5 MM (Insulin Pen Needle)Indicatio ns:Type 2 diabetes mellitus without complication, with long-term current use of insulin (HCC) inject subcutaneously four times a day 1000 Each 023 Active OneTouch UltraSoft LancetsIndicatio ns:Type 2 diabetes mellitus without complication, unspecified whether skilled nursing insulin use (HCC) Use as directed 4 times a day as needed for Other (to check BS). Use up to four times a day as directed 100 Each 5 024 Active ReliOn Premier Classic Device Use to test blood sugar as directed Active RA Melatonin 1 MG Sublingual Tablet Sublingual (Melatonin)Indic ations:Insomnia, unspecified type take 1 tablet by mouth at bedtime if needed for insomnia 30 Tablet 5 024 Active ReliOn Premier Test In Vitro Strip (Glucose Blood) Use to test blood sugar 4 times daily as directed 100 Strip Active Insulin Glargine Solostar 100 UNIT/ML Subcutaneous Solution Pen-injector (Basaglar KwikPen) Inject 15 units once daily at bedtime. Dx Code E 11.9 15 mL Active Additional Information Patient taking differently: Inject 21 units once daily at bedtime., Informant: Patient, Pharmacy, Reported on 12/23/2024 NovoLOG FlexPen 100 UNIT/ML Subcutaneous Solution Pen-injector (insulin aspart) Inject 12 units + scale three times a day with meals. Max of 20 units three times a day with meals. 15 mL Active Bromfenac Sodium (Once-Daily) 0.09 % Ophthalmic Solution Instill 1 Drop into eye daily at noon. 2 mL Active Additional Information Patient not taking.Informant: Patient, Pharmacy, Reported on 11/04/2024 Cyanocobalamin 1000 MCG Sublingual Tablet SublingualIndica tions:B12 [address] 1,000MCG UNDER THE TONGUE DAILY 90 Tablet Active Fluticasone Propionate 50 MCG/ACT Nasal Suspension [...] Tablet by mouth every evening. 90 Tablet 1 Active Carvedilol 3.125 MG Oral Tablet (Coreg) [...] the morning. In the morning.. 90 Tablet 024 2024 Discontinued hydrOXYzine HCl 25 MG [...] List Clean Up) Vitamin D3 50 MCG (1999 UT) Oral CapsuleIndicatio ns:Vitamin D deficiency Take 1 Capsule by mouth in the morning. Every morning.. 90 Capsule 1 024 2024 Discontinued Torsemide 20 MG Oral Tablet (Demadex) Take 3 Tablets by mouth in the morning. 90 Tablet 11 024 2024 Discontinued amLODIPine Besylate 5 MG Oral Tablet (Norvasc) Take 1 Tablet by mouth in the morning. 90 Tablet 3 024 2024 Discontinued Vitamin B-12 1000 MCG Oral [...] daily with dressing changes. 85 g 1 024 2024 Discontinued( edication List Clean Up) Sulfamethoxazole -Trimethoprim 800-160 [...] and 1 Capsule before bedtime. 20 Capsule 2024 Discontinued( edication List Clean Up) traMADol HCl 50 MG Oral Tablet (Ultram)Indicati ons:Skin ulcer of multiple sites of lower extremity, unspecified laterality, limited to breakdown of skin (HCC) Take 1 Tablet by mouth every 8 hours as needed for Pain, Moderate. 15 Tablet 2024 Discontinued methylPREDNISolo ne 4 MG Oral Tablet Therapy Pack (Medrol Dosepack) follow package directions 21 Tablet 025 2024 Discontinued Permethrin 5 % External Cream (Elimite) Apply topically to affected area once for 1 dose. Apply from top of neck to toes all over, wash off after 12 hours 60 g 025 2024 Discontinued Ketoconazole 2 % External Shampoo (Nizoral) Apply topically to affected area every 3 days for 28 days. Shampoo twice a week 120 mL 1 025 2024 Hospital, Clinic, or Other Facility Administered Medication [...] IZ PRN 04/17/2024 04/17/2025 Active lidocaine-epinephrine 2 %-1:023468 inj 6 mgIndications:Moderate nonproliferative diabetic retinopathy of [...] yrs 12/08/2014,03/31/2011,02/23 Pneumococcal Conjugate Vacci ne, 20-valent ([id number]) 06/06/2023 Pneumococcal Polysaccharide PPV23 (Pneumovax) 02/10/2011 Seasonal [...] 12/23/2024 Does the household have a re lar source of income? (Household - for ages [...] 5:23 PM EDT Oswaldo Glover RN * Do you have serious difficulty walking or climbing stairs? (5 years old or older) Answer Date of Assessment Author No 05/01/2024 5:23 PM EDT Oswaldo Glover RN * Do you have difficulty dressing or bathing? (5 years old or older) Answer Date of Assessment Author No 05/01/2024 5:23 PM EDT Oswaldo Glover RN * Because of a physical, mental, or emotional condition, do you have difficulty doing errands alone such as visiting a doctor’s office or shopping? (15 years old or older) Answer Date of Assessment Author No 05/01/2024 5:23 PM EDT Oswaldo Glover RN documented as of this encounter Mental Status * Because of a physical, mental, or emotional condition, do you have serious difficulty concentrating, remembering, or making decisions? (5 years old or older) Answer Entry Date Author No 05/01/2024 5:23 PM EDT Oswaldo Glover RN documented in this encounter Miscellaneous Notes * Telephone Encounter - Brittany Loo LPN - 12/04/2024 1:56 PM EDT Patient see in ER * Telephone Encounter - Denis Urbina MD - 10/01/2024 7:02 PM EST Traitement ordered yesterday at Did she use it? * Telephone Encounter - Sujey Hatfield LPN - 10/01/2024 8:29 AM EST Geri from [facility] calling in [facility] was tested positive for Scabies yesterday. And the house is in deplorable conditions they have put visits on hold until pt has treatment for the scabies. * Telephone Encounter - Sis Lou OSA - 10/01/2024 8:27 AM EST Reason for patient's call: [facility] [phone] Caller was transferred to Sujey at the nurse line. documented in this encounter Plan of Treatment Upcoming Encounters Date Type Department Care Team (Late st Contact Info) Description 01/07/2025 12:45 PM EDT Appointment Radiology [facility] ALLEN [address] [facility] [place] [address] 01/22/2025 1:15 PM EDT Imaging Radiology [facility] [address] [place] [address] 02/09/2025 10:00 AM EDT Office Visit Pulmonary Medicine [facility] Kymberly MIRANDA [address] [facility] [place] [address] Braxton Elizalde MD [address] [place] [address] [place] [address] Health Maintenance Due Date Last Done Comments [...] Screening 03/29/2024 Fecal Occult Blood Test 03/29/2024 03/29/20, 03/27/2023, 02/17/2010 COVID-19 Vaccine ( season) 2024 06/18/2021 Diabetic Foot Exam 06/06/2024 [...] this encounter Medical Devices Implanted Type Area Digital Artist Device Identifier Shelf Expiration Date Model / Serial / Lot Cath Drainage 10fr Rlc-10-038 - [id number] Implanted:Qty : 1 on 05/07/[address] [facility] Right: Abdomen [employer] [id number] 02/15/2026 [facility]-10-03 8 / / [id number] documented as of this encounter Additional Health [...] Power of Attor cristin? No Care Teams Recreation Facilities Supervisor Relationship Specialty Start Date End Date Denis Urbina MD [address] [place] [address] PCP - General Family Medicine 04/17/22 documented as of this encounter
--- OUTSIDE RECORDS SUMMARY | 2025-01-09 05:26 | External Medical Summary | Summary of Care ---
Author Name Unknown Organization [facility] Address [address] [place] [address] Phone [phone] Care Team Providers Care Educational Diagnostician Name Role Phone Denis Urbina MD Primary Care Provider + [phone] Reason for Visit * Reason Onset Date Comments Advice 12/18/2024 Encounter Details Date Type Department Care Team ([facility] st Contact Info) Description 12/18/2024 Telephone [facility] [address] [place] [address] Denis Urbina MD [address] [place] [address] Advice Allergies No known active allergiesdocumented as of this encounter (statuses as of 12/22/2024) Medications Albuterol Sulfate (2.5 MG/3ML) 0.083% Inhalation Nebulization Solution (Proventil)Indica tions:Bronchitis, Wheezing,Bronchit is, complicated One vial in nebulizer every 4 hours as needed for wheezing 3 mL 1 06/08/20 21 Active Acetaminophen 325 MG Oral Tablet (Tylenol) Take 1 Tablet by mouth every 6 hours as needed for Pain, Mild. Active CPAP every night at bedtime . Active FreeStyle Maria Luz 2 Sensor Use as directed . 1 Each 06/27/20 22 Active FreeStyle Maria Luz 2 [place] Device Use as directed . 1 Each 06/27/20 22 Active BD Insulin Syringe U/F 30G X 1/2" 0.3 ML (Insulin Syringe-Needle U-100)Indications :Type 2 diabetes mellitus without complication (HCC),Type 2 diabetes mellitus without complication, with long-term current use of insulin (HCC) INJECT UNDER THE SKIN 4 TIMES A DAY 100 Each 2 06/06/20 23 Active Droplet Pen [place] 31G X 5 MM (Insulin Pen Needle)Indication s:Type 2 diabetes mellitus without complication, with long-term current use of insulin (HCC) inject subcutaneously four times a day 1000 Each 06/07/20 23 Active OneTouch UltraSoft LancetsIndication s:Type 2 diabetes mellitus without complication, unspecified whether correction insulin use (HCC) Use as directed 4 times a day as needed for Other (to check BS). Use up to four times a day as directed 100 Each 5 10/31/19 24 Active ReliOn Premier Classic Device Use to test blood sugar as directed 12/24/19 24 Active RA Melatonin 1 MG Sublingual Tablet Sublingual (Melatonin)Indica tions:Insomnia, unspecified type take 1 tablet by mouth at bedtime if needed for insomnia 30 Tablet 5 12/24/19 24 Active Additional Information Patient not taking.Informant: Patient, Pharmacy, Reported on 11/10/2024 ReliOn Premier Test In Vitro Strip (Glucose [...] at bedtime., Informant: Patient, Pharmacy, Reported on 11/10/2024 NovoLOG FlexPen 100 UNIT/ML Subcutaneous Solution Pen-injector [...] on 11/04/2024 Cyanocobalamin 1000 MCG Sublingual Tablet SublingualIndicat ions:B12 [address] 1,000MCG UNDER THE TONGUE DAILY 90 Tablet 1 06/04/20 24 Active Fluticasone Propionate 50 MCG/ACT Nasal Suspension (Flonase)Indicati ons:Rhinosinusiti s Administer 2 Sprays into each nostril in the morning. 1 Each 5 06/04/20 24 Active Gabapentin 100 MG Oral Capsule (Neurontin) Take 2 Capsules by mouth in the morning and 2 Capsules at noon and 2 Capsules before bedtime. 90 Capsule 5 06/04/20 24 Active hydrOXYzine HCl 25 MG Oral TabletIndications :Episode of recurrent major depressive disorder, unspecified depression episode severity (HCC) Take 1 Tablet by mouth 3 times a day as needed for Anxiety. 90 Tablet 1 06/04/20 24 Active Simvastatin 20 MG Oral Tablet (Zocor) Take 1 Tablet by mouth every evening. 90 Tablet 1 06/04/20 24 Active Carvedilol 3.125 MG Oral Tablet (Coreg) Take 1 Tablet by mouth 2 times a day with morning and evening meals. 180 Tablet 3 06/04/20 24 Active Ondansetron 4 MG Oral Tablet Disintegrating (Zofran)Indicatio ns:Nausea Place 1 Tablet on tongue every 8 hours as needed for Nausea. dissolve on tongue. 30 Tablet 1 06/09/20 24 Active Triamcinolone Acetonide 0.1 % External Cream (Aristocort) Apply 80 g topically to affected area every 12 hours as needed for Itching. Apply to areas of skin with itching 30 g 10/10/19 25 Active Ammonium Lactate 12 % External Cream (Lac-Hydrin) Apply topically to affected area as needed for Dry Skin. Apply to all over body after shower and before bedtime for dry skin 385 g 2 10/10/19 25 Active traMADol HCl 50 MG Oral Tablet (Ultram)Indicatio ns:Skin ulcer of multiple sites of lower extremity, unspecified laterality, limited to breakdown of skin (HCC) Take 1 Tablet by mouth every 8 hours as needed for Pain, Moderate or Pain, Severe. Ongoing therapy 45 Tablet 10/10/19 25 Active Flutter DeviceIndications :Chronic respiratory failure with hypoxia and hypercapnia (HCC) As directed. 1 Each 11/10/19 25 Active guaiFENesin ER 600 MG Oral Tablet Extended Release 12 Hour (Humibid LA) Take 1 Tablet by mouth 2 times a day as needed for Cough or Congestion. 60 Tablet 2 11/10/19 25 Active Benzonatate 100 MG Oral CapsuleIndication s:Chronic respiratory failure with hypoxia and hypercapnia (HCC) Take 1 Capsule by mouth 2 times a day as needed for Cough. 30 Capsule 1 11/10/19 25 Active Escitalopram Oxalate 10 MG Oral Tablet (Lexapro)Indicati ons:Episode of recurrent major depressive disorder, unspecified depression episode severity (HCC) take 1 tablet by mouth every morning 90 Tablet 1 12/05/19 25 Active Doxycycline Hyclate 100 MG Oral Capsule Take 1 Capsule by mouth in the morning and 1 Capsule before bedtime. Do all this for 10 days. Until gone.. 20 Capsule 12/15/19 25 025 Active Mupirocin 2 % External Ointment (Bactroban) Apply topically to affected area 2 times a day. To affected area (R knee abrasions) for 7-10 days. 22 g 12/15/19 25 Active Torsemide 20 MG Oral Tablet (Demadex) Take 3 Tablets by mouth in the morning. 90 Tablet 1 12/23/19 25 Active Torsemide 20 MG Oral Tablet (Demadex) Take 3 Tablets by mouth in the morning. 90 Tablet 10/10/19 025 [facility], Clinic, or Other Facility Administered Medication [...] IZ PRN 04/17/2024 04/17/2025 Active lidocaine-epinephrine 2 %-1:059999 inj 6 mgIndications:Moderate nonproliferative diabetic retinopathy of both eyes with macular edema associated with type 2 diabetes mellitus (HCC),Optic nerve drusen, left,6th nerve palsy, right,Combined forms of age-related cataract of both eyes 6 mg IJ PRN 04/17/2024 04/17/2025 Active albuterol-ipratropium (Duoneb) inhalation solution 3 mLIndications:Chronic respiratory failure with hypoxia and hypercapnia (HCC) 3 mL NEBULIZER PRN 10/27/2024 10/27/2025 Active documented as of this encounter (statuses as of 12/22/2024) Active Problems Problem Noted Date Diagnosed Date [...] as of this encounter (statuses as of 12/22/2024) Resolved Problems Problem Noted Date Diagnosed Date [...] as of this encounter (statuses as of 12/22/2024) Immunizations Name Administration Dates Next Due Covid-19 Ad26, Single Dose (Alona/J&J) 021 Hepatitis B, 20+ yrs 12/08/2014,03/31/2011,02/23 Pneumococcal Conjugate Vacci ne, 20-valent ([id number]) 06/06/2023 Pneumococcal Polysaccharide PPV23 (Pneumovax) 02/10/2011 Seasonal Influenza, Quadriva lent Hd (Fluzone Hd) 12/17/2023() TDAP, Age 7 and older, IM (Adacel) 06/07/2011 Tetanus Toxid Adsorbed 09/14/2007 documented as of this encounter Social History Tobacco Use Types Packs/Day Years Used Date Smoking Tobacco: Every Day Cigarettes 0.2 3.2 Started: 03/08/2019; Last attempted to quit: 03/08/2022 Smokeless Tobacco: Never Comments:smoked in college [...] have money to get more. Sometimes true Childcare Answer Date Recorded Do you feel overwhelmed with taking care of a child, family member or friend? No 01/22/2024 Does your family need help f inding childcare? (Household - for ages 0-17 years) Not on file 01/22/2024 Clothing Answer Date Recorded Have you been unable to get clothing when it was really needed? No 01/22/2024 Is your family able to get c lothes or diapers when needed? (Household - for ages 0-17 years) Not on file 01/22/2024 Personal Safety Answer Date Recorded Do you feel unsafe or have concerns for your saf ety? No 10/03/2024 Do you have concerns for you r family's safety? (Household - for ages 0-17 years) Not on file 10/03/2024 Utilities Answer Date Recorded Do you have trouble paying y our heating, water, or electric bill? No 10/03/2024 Is your family able to pay t he heat, water, or electric bill? (Household - for ages 0-17 years) Not on file 10/03/2024 Does your family have access to good internet? (Household - for ages 0-17 years) Not on file 10/03/2024 Employment Status Answer Date Recorded Are you unemployed or without regular income? No 01/22/2024 Does the household have a re gular source of income? (Household - for ages 0-17 years) Not on file 01/22/2024 Social Connections Answer Date Recorded How often do you feel lonely or isolated from th ose around you? Never 01/22/2024 Financial Resource Strain Answer Date R ecorded Do you have any trouble payi ng for your medications, or do you think you might in the future? Yes 01/22/2024 Does your family have troubl e paying for medicine? (Household - for ages 0-17 years) Not on file 01/22/2024 Transportation Needs Answer Date Record ed READ ONLY Do you have troubl e getting a ride to medical visits or work? Never True 10/03/2024 Does your family have a hard time getting a ride to doctors visits? (Household - for ages 0-17 years) Not on file 10/03/2024 Has lack of transportation k ept you from medical appointments, meetings, work, or from getting things needed for daily living? Check all that apply. No 10/03/2024 Do you (or your family) have trouble finding or paying for a ride (transportation)? (Household - for ages 0-17 years) Not on file 10/03/2024 Housing Stability Answer Date Recorded Do you currently live in a s helter or have no steady place to sleep at night? No 10/03/2024 READ ONLY Do you think you a re at risk of becoming homeless? Yes 10/03/2024 Does your family worry about paying for your home or becoming homeless? (Household - for ages 0-17 years) Not on file 0 10/03/2024 Are you homeless or worried that you might be in the future? No 10/03/2024 Are you (or your family) lionel eless [...] have money to get more. Sometimes true 06/2025 Do you need food for this week? No 10/03/2024 Comments No Sex and Gender Information Value [...] hearing? Answer Date of Assessment Author No 10/03/2024 7:48 PM Lokesh Church RN * Are you blind or do you have serious difficulty seeing, even when wearing glasses? Answer Date of Assessment Author No 10/03/2024 7:48 PM Lokesh Church RN * Do you have serious difficulty walking or climbing stairs? (5 years old or older) Answer Date of Assessment Author Yes 10/03/2024 7:48 PM Lokesh Church RN * Do you have difficulty dressing or bathing? (5 years old or older) Answer Date of Assessment Author Yes 10/03/2024 7:48 PM Lokesh Church RN * Because of a physical, mental, or emotional condition, do you have difficulty doing errands alone such as visiting a doctor’s office or shopping? (15 years old or older) Answer Date of Assessment Author No 10/03/2024 7:48 PM Lokesh Church RN documented as of this encounter Mental Status * Because of a physical, mental, or emotional condition, do you have serious difficulty concentrating, remembering, or making decisions? (5 years old or older) Answer Entry Date Author No 10/03/2024 7:48 PM Lokesh Church RN documented in this encounter Progress Notes * Indu Pacheco RN - 12/18/2024 2:05 PM EDT CM spoke with patient on 12/15 to Enroll. Pt noted she was on her way to [place] for a couple of days. Declined to make any PCP follow up appointments at this time. Advised CM would follow up in1 week to connect with patient. Call placed to Polly CAMPOS to make aware of same and left message for Sujey. THANG Villegas heat curer Care Coordination and Integration [facility] [phone] documented in this encounter Miscellaneous Notes * Telephone Encounter - Angela Briggs CRNP - 12/22/2024 1:00 PM EDT . * Telephone Encounter - Ana Orlando PA-C - 12/18/2024 11:59 AM EDT Inboxologist Note: Can we try contacting her to do a welfare check on her? Thanks * Telephone Encounter - Paty Crowell LPN - 12/18/2024 11:50 AM EDT Call received from Sujey, assistant operations manager at [facility] regarding they last saw pt on November 30. Since then they have been unable to contact her. Her home was condemned and she has been staying at various hotels in the [facility]. HH went to the last hotel she was at and did not find her, they have called her numerous times and left messages to have none returned. Sujey stated they will have to discharge her if they don't hear from her soon. HH will call this office if they do hear from her and requested that 's office contact them should she call Provider. Sujey : [phone] TERESITA Newman DNL * Telephone Encounter - Darline Patel OSA - 12/18/2024 11:43 AM EDT Reason for patient's call: HH asking to speak to nurse Caller was transferred to Paty at the nurse line. documented in this encounter Plan of Treatment Upcoming Encounters Date Type Department Care Team (Late st Contact Info) Description 12/23/2024 10:30 AM EDT Office Visit Ophthalmology [facility] [address] [place] [address] [place] [address] [place] [address] 12/24/2024 10:30 AM EDT Office Visit Cardiology [facility] [address] [facility] [place] [address] Angela Briggs CRNP [address] [facility] [place] [address] 01/07/2025 12:45 PM EDT [facility] [address] [facility] [place] [address] 01/22/2025 1:15 PM EDT Imaging Radiology [facility] [address] [place] [address] 02/09/2025 10:00 AM EDT [facility] [address] [facility] [place] [address] Braxton Elizalde MD [address] [place], [place] [address] [address] 03/03/2025 1:00 PM EDT Office Visit Ophthalmology [facility] [address] [place] [address] [place] Gordon MD [address] [place] [address] [place] [address] , [facility] Ophthalmology [address] [address] Health Maintenance Due Date Last Done Comments [...] 03/29/2024 03/29/20 23, 03/27/2023, 02/17/2010 COVID-19 Vaccine ( season) 2024 06/18/2021 Influenza Vaccine (FLU shot) (#1) 2024 Diabetic Foot Exam 06/06/2024 06/06/2023, 0 12/17/2020, 01/02/2017, Additional history exists Depression Monitoring 12/19/2024 12/20/2023 HbA1c 04/02/2025 10/03/2024, 08/0 04/2024, 04/24/2024, Additional history exists GFR 05/03/2025 11/03/2024, 02/0 11/2024, 10/20/2024, Additional history exists Diabetic Eye Exam 11/04/2025 11/04/2024, , 11/04/2024, [...] this encounter Medical Devices Implanted Type Area Manager Health Device Identifier Shelf Expiration Date Model / Serial / Lot Cath Drainage 10fr [facility]-10-038 - [id number] Implanted:Qty : 1 on 05/07/2023 at [facility] Right: Abdomen [employer] [id number] 02/15/2026 [facility]-10-03 8 / / [id number] documented as of this encounter Advance Directives [...] Power of Attor cristin? No Care Teams Educational Diagnostician Relationship Specialty Start Date End Date Denis Urbina MD [address] [place] [address] PCP - General Family Medicine 04/17/22 documented as of this encounter
--- OUTSIDE RECORDS SUMMARY | 2025-01-09 05:26 | External Medical Summary | Summary of Care ---
Author Name Unknown Organization [facility] Address [address] [place] [address] Phone [phone] Care Team Providers Care Outside Machinist Apprentice Name Role Phone Denis Urbina MD Primary Care Provider + [phone] Reason for Visit * Reason Onset Date Comments No Show 12/26/2024 [facility] No Show Auto mation Encounter Details Date Type Department Care Team ([facility] st Contact Info) Description 12/26/2024 Telephone Ophthalmology, [facility] [address] [place] [address] Archana Jain MD [facility] [place] [address] No Show ([facility] No Show Automation) Allergies No known active allergiesdocumented as of this encounter (statuses as of 12/26/2024) Medications Albuterol Sulfate (2.5 MG/3ML) 0.083% Inhalation [...] 06/27/20 22 Active FreeStyle Maria Luz 2 [place] Device Use as directed . 1 Each 06/27/20 22 Active BD Insulin Syringe U/F 30G X 1/2" 0.3 ML (Insulin Syringe-Needle U-100)Indications: Type 2 diabetes mellitus without complication (HCC),Type 2 diabetes mellitus without complication, with long-term current use of insulin (HCC) INJECT UNDER THE SKIN 4 TIMES A DAY 100 Each 2 06/06/20 23 Active Droplet Pen [place] 31G X 5 MM (Insulin Pen Needle)Indications [...] MCG Sublingual Tablet SublingualIndicati ons:B12 [address] 1,000MCG UNDER THE TONGUE DAILY [...] bedtime. 90 Capsule 5 06/04/20 24 Active Simvastatin 20 MG Oral [...] Active traMADol HCl 50 MG Oral Tablet (Ultram)Indication s:Skin ulcer of multiple sites of lower extremity, unspecified laterality, limited to breakdown of skin (HCC) Take 1 Tablet by mouth every 8 hours as needed for Pain, Moderate or Pain, Severe. Ongoing therapy 45 Tablet 10/10/19 25 Active Flutter DeviceIndications: Chronic respiratory failure with hypoxia and hypercapnia (HCC) As directed. 1 Each 11/10/19 25 Active guaiFENesin ER 600 MG Oral Tablet Extended Release 12 Hour (Humibid LA) Take 1 Tablet by mouth 2 times a day as needed for Cough or Congestion. 60 Tablet 2 11/10/19 25 Active Benzonatate 100 MG Oral CapsuleIndications :Chronic respiratory failure with hypoxia and hypercapnia (HCC) Take 1 Capsule by mouth 2 times a day as needed for Cough. 30 Capsule 1 11/10/19 25 Active Escitalopram Oxalate 10 MG Oral Tablet (Lexapro)Indicatio ns:Episode of recurrent major depressive disorder, unspecified depression episode severity (HCC) take 1 tablet by mouth every morning 90 Tablet 1 12/05/19 25 Active Mupirocin 2 % External Ointment (Bactroban) Apply topically to affected area 2 times a day. To affected area (R knee abrasions) for 7-10 days. 22 g 12/15/19 25 Active Torsemide 20 MG Oral Tablet (Demadex) Take 3 Tablets by mouth in the morning. 90 Tablet 1 12/23/19 25 Active hydrOXYzine HCl 25 MG Oral TabletIndications: Episode of recurrent major depressive disorder, unspecified depression episode severity (HCC) take 1 tablet by mouth three times a day if needed for anxiety 90 Tablet 1 12/26/19 Active Hospital, Clinic, or Other Facility Administered [...] IZ PRN 04/17/2024 04/17/2025 Active lidocaine-epinephrine 2 %-1:312742 inj 6 mgIndications:Moderate nonproliferative diabetic retinopathy of [...] as of this encounter (statuses as of 12/26/2024) Active Problems Problem Noted Date Diagnosed Date [...] as of this encounter (statuses as of 12/26/2024) Resolved Problems Problem Noted Date Diagnosed Date [...] infection 06/28/2022 024 Bacterial pneumonia 06/28/2022 01/16/20 24 Leukocytosis 06/28/2022 05/10/2023 Kidney disease, chronic, sta [...] as of this encounter (statuses as of 12/26/2024) Immunizations Name Administration Dates Next Due Covid-19 Ad26, Single Dose (Alona/J&J) 021 Hepatitis B, 20+ yrs 12/08/2014,03/31/2011,02/23 Pneumococcal Conjugate Vacci ne, 20-valent ([id number]) 06/06/2023 Pneumococcal Polysaccharide PPV23 (Pneumovax) 02/10/2011 Seasonal [...] Lokesh Church RN documented in this encounter Miscellaneous Notes * Telephone Encounter - [facility], No Show - 12/26/2024 9:38 AM EDT Dear Meera Mcgraw, Looks like you missed an appointment with ARCHANA JAIN on 12/23/2024 at 10:30 AM. If you haven't already rescheduled, you have a couple of options: Reschedule in [email or web address] Call us at [phone] Can't make a future appointment? Cancel and let someone else have your spot! It's easy to do via [employer] or by calling us. [facility]. We hope to see you back in our office soon. Sincerely, ARCHANACARLENE JAIN documented in this encounter Plan of Treatment Upcoming Encounters Date Type Department Care Team ([facility] st Contact Info) Description 01/07/2025 12:45 PM EDT Appointment Radiology Kymberly ALLEN [address] [facility] [place] [address] 01/22/2025 1:15 PM EDT Imaging Radiology [facility] [address] [place] [address] 02/09/2025 10:00 AM EDT Office Visit Pulmonary Medicine Kymberly EDMOND [address] [place] [address] Braxton Elizalde MD [address] [place] [address] [place] [address] Health Maintenance Due Date Last Done Comments [...] this encounter Medical Devices Implanted Type Area Needle Punch Machine Operator Device Identifier Shelf Expiration Date Model / Serial / Lot Cath Drainage 10fr [facility]-10-038 - [id number] Implanted:Qty : 1 on 05/07/2023 at [facility] Right: Abdomen [employer] [id number] 02/15/2026 [facility]-10-03 8 / / [id number] documented as of this encounter Advance Directives [...] Power of Attor cristin? No Care Teams Outside Machinist Apprentice Relationship Specialty Start Date End Date Denis Urbina MD [address] [place] [address] PCP - General Family Medicine 04/17/22 documented as of this encounter
--- OUTSIDE RECORDS SUMMARY | 2025-01-09 05:26 | External Medical Summary | Summary of Care ---
Author Name Unknown Organization [facility] Address [address] [place] [address] Phone [phone] Care Team Providers Care Coal Bagger Name Role Phone Denis Urbina MD Primary Care Provider + [phone] Reason for Referral * Precert (Within 10 days (routine)) - Authorized Specialty Diagnoses / Procedures Referred By Contac t Referred To Contact Radiology Diagnoses Chronic respiratory failure with hypoxia and hypercapnia (HCC) Procedures CT CHEST WO CONTRAST Johanny Hutton CRNP [address] [place] [address] Phone: tel: fax: Referral ID Status Reason Start Date Expiration Date V isits Requested Visits Authorized [id number] Authorized 01/07/2025 [id number] Reason for Visit * Reason Comments Follow Up Encounter Details Date Type Department Care Team (Latest Contact Info) Description 11/10/2024 8:00 AM EST Office Visit Pulmonary Medicine [facility] Kymberly Zhang [facility] [place] [phone] Braxton Elizalde MD [address] [place] [address] [place] [id number] Chronic respiratory failure with hypoxia and hypercapnia (HCC)*; Sleep apnea, unspecified type; Obesity hypoventilation syndrome (HCC) Allergies No known active allergiesdocumented as of this encounter (statuses as of 12/28/2024) Medications Albuterol Sulfate (2.5 MG/3ML) 0.083% Inhalation [...] Sensor Use as directed . 1 Each Active FreeStyle Maria Luz 2 [place] Device Use as directed . 1 Each Active BD Insulin Syringe U/F 30G X 1/2" 0.3 ML (Insulin Syringe-Needle U-100)Indication s:Type 2 diabetes mellitus without complication (HCC),Type 2 diabetes mellitus without complication, with long-term current use of insulin (HCC) INJECT UNDER THE SKIN 4 TIMES A DAY 100 Each 2 023 Active Droplet Pen [place] 31G X 5 MM (Insulin Pen Needle)Indicatio ns:Type 2 diabetes mellitus without complication, with long-term current use of insulin (HCC) inject subcutaneously four times a day 1000 Each 023 Active OneTouch UltraSoft LancetsIndicatio ns:Type 2 diabetes mellitus without complication, unspecified whether watermaster insulin use (HCC) Use as directed 4 [...] needed for insomnia 30 Tablet 5 Active Additional Information Patient not taking.Informant: Patient, [...] times a day with meals. 15 mL 024 Active Bromfenac Sodium (Once-Daily) 0.09 % Ophthalmic [...] each nostril in the morning. 1 Each Active Gabapentin 100 MG Oral Capsule (Neurontin) Take 2 Capsules by mouth in the morning and 2 Capsules at noon and 2 Capsules before bedtime. 90 Capsule Active Simvastatin 20 MG Oral Tablet (Zocor) Take 1 Tablet by mouth every evening. 90 Tablet Active Carvedilol 3.125 MG Oral Tablet (Coreg) Take 1 Tablet by mouth 2 times a day with morning and evening meals. 180 Tablet Active Ondansetron 4 MG Oral Tablet Disintegrating (Zofran)Indicati ons:Nausea Place 1 Tablet on tongue every 8 hours as needed for Nausea. dissolve on tongue. 30 Tablet 1 024 Active Triamcinolone Acetonide 0.1 % External Cream (Aristocort) Apply 80 g topically to affected area every 12 hours as needed for Itching. Apply to areas of skin with itching 30 g 025 Active Ammonium Lactate 12 % External Cream (Lac-Hydrin) Apply topically to affected area as needed for Dry Skin. Apply to all over body after shower and before bedtime for dry skin 385 g 2 Active traMADol HCl 50 MG Oral Tablet (Ultram)Indicati ons:Skin ulcer of multiple sites of lower extremity, unspecified laterality, limited to breakdown of skin (HCC) Take 1 Tablet by mouth every 8 hours as needed for Pain, Moderate or Pain, Severe. Ongoing therapy 45 Tablet Active Flutter DeviceIndication s:Chronic respiratory failure with hypoxia and hypercapnia (HCC) As directed. 1 Each Active guaiFENesin ER 600 MG Oral Tablet Extended Release 12 Hour (Humibid LA) Take 1 Tablet by mouth 2 times a day as needed for Cough or Congestion. 60 Tablet 2 Active Benzonatate 100 MG Oral CapsuleIndicatio ns:Chronic respiratory failure with hypoxia and hypercapnia (HCC) Take 1 Capsule by mouth 2 times a day as needed for Cough. 30 Capsule 1 Active Omeprazole 20 MG Oral Capsule Delayed Release (PriLOSEC)Indica tions:Gastroesop hageal reflux disease without esophagitis take 1 capsule by mouth every morning 90 Capsule 1 024 2024 Discontinued Escitalopram Oxalate 10 MG [...] Anxiety. 90 Tablet 1 024 2024 Discontinued Torsemide 20 MG Oral Tablet (Demadex) Take 3 Tablets by mouth in the morning. 90 Tablet 11 025 2024 Discontinued(R efill) Nicotine 21 MG/24HR Transdermal Patch 24 Hour (Nicoderm CQ) Place 1 Patch over 24 hours topically on the skin in the morning. 28 Patch 025 2024 Discontinued Hospital, Clinic, or Other Facility [...] IZ PRN 04/17/2024 04/17/2025 Active lidocaine-epinephrine 2 %-1:107024 inj 6 mgIndications:Moderate nonproliferative diabetic retinopathy of both eyes with macular edema associated with type 2 diabetes mellitus (HCC),Optic nerve drusen, left,6th nerve palsy, right,Combined forms of age-related cataract of both eyes 6 mg IJ PRN 04/17/2024 04/17/2025 Active albuterol-ipratropium (Duoneb) inhalation solution 3 mLIndications:Chronic respiratory failure with hypoxia and hypercapnia ([facility]) 3 mL NEBULIZER PRN 10/27/2024 10/27/2025 Active documented as of this encounter (statuses as of 12/28/2024) Active Problems Problem Noted Date Diagnosed Date [...] as of this encounter (statuses as of 12/28/2024) Resolved Problems Problem Noted Date Diagnosed Date [...] Lipid Taxonomy. HTN, goal to be determined 10/17/2008 Overview (08/17/2009): Modified per HTN protocol #16. Obesity, BMI not known 12/21 Overview (12/21/2009): Per Obesity Taxonomy documented as of this encounter (statuses as of 12/28/2024) Immunizations Name Administration Dates Next Due Covid-19 Ad26, Single Dose ([place]/J&J) 021 Hepatitis B, 20+ yrs 12/08/2014,03/31/2011,02/23 Pneumococcal Conjugate Vacci ne, 20-valent ([id number]) 06/06/2023 Pneumococcal Polysaccharide PPV23 (Pneumovax) 02/10/2011 Seasonal Influenza, Quadriva lent Hd (Fluzone Hd) 12/17/2023() TDAP, Age 7 and older, IM (Adacel) 06/07/2011 Tetanus Toxid Adsorbed 09/14/2007 documented as of this encounter Social History Tobacco Use Types Packs/Day Years Used Date Smoking Tobacco: Former Cigarettes 0.1 3 0 03/08/2019 - 03/08/2022 Smokeless Tobacco: Never Tobacco Cessation:Counseling Given: Not Answered Comments:smoked in college also Alcohol Use Standard Drinks/Week Comments Yes 0 [...] No 01/22/2024 Does the household have a [facility] income? (Household - for ages [...] on file documented as of this encounter Last Filed Vital Signs Vital Sign Reading Time Taken Comments Blood Pressure 150/73 11/10/2024 8:33 AM EST Pulse 62 11/10/2024 8:33 AM EST Temperature 37.2 °C (98.9 °F) 11/10/2024 8:33 AM ES T Respiratory Rate 20 11/10/2024 8:33 AM EST Oxygen Saturation 98% 11/10/2024 8:33 AM EST 4l Inhaled Oxygen Concentration - - Weight 112 kg (247 lb) 11/10/2024 8:33 AM EST Height 162.6 cm (5' 4") 11/10/2024 8:33 AM EST Body Mass Index 42.4 11/10/2024 8:33 AM EST documented in this encounter Functional Status * Are you [...] documented in this encounter Progress Notes * Johanny Hutton CRNP - 11/10/2024 8:40 AM EST Pulmonary Medicine [facility], Kymberly Zhang [address] [place] [address] [place] [phone] Meera Lucien 69 year old female November 10, 2024 8:41 AM Chief complaint: Chief Complaint Patient presents with Follow Up Past Medical History: Diagnosis Date Acute appendicitis 01/29/2017 Acute respiratory failure with hypoxia and hypercapnia (HCC) 06/19/2022 Chronic venous hypertension with ulcer (HCC) 05/05/2022 Controlled substance agreement signed 01/28/2017 COPD exacerbation (HCC) 12/26/2015 COPD, severity to be determined (HCC) 12/26/2015 Diabetic retinopathy of right eye associated with type 2 diabetes mellitus (HCC) 06/08/2021 Dyslipidemia 12/26/2015 Dyslipidemia, goal to be determined Gastroesophageal reflux disease without esophagitis 05/04/2023 Heart failure, diastolic, with acute decompensation ([facility]) 06/19/2022 Heart failure, diastolic, with acute decompensation ([facility]) 2023-10-28 Adding I50.33-Heart failure, diastolic, with acute decompensation ([facility]) Dx to History HTN, goal below 140/90 11/07/2014 HTN, goal to be determined Hypoxia 12/26/2015 Influenza A 12/29/2015 Kidney disease, chronic, stage III (GFR 30-59 ml/min) ([facility]) 06/28/2022 Major depressive disorder 07/15/2007 ICD-10 update of inactive term Obesity hypoventilation syndrome ([facility]) 06/28/2022 Obesity, BMI not known Personal history of colonic polyps PPD positive Restless leg syndrome Right abducens nerve palsy 06/19/2022 Sleep apnea SOB (shortness of breath) 12/26/2015 T2DM (type 2 diabetes mellitus) ([facility]) dx age 55 Type 2 diabetes mellitus with diabetic polyneuropathy, with long-term current use of insulin ([facility]) 12/10/2019 Ms. Meera Mcgraw, a 69 year old female, presents today for follow up. Last seen by Dr. Elizalde on 10/27/24. Current pulmonary regimen: oxygen-- 4 LPM continuous. Duonebs QID. Guaifenesin as needed Flonase Interim History: last visit was treated for acute illness. Received Duonebs, IM solumedrol and prednisone taper. 10/27/24 RVP was + coronavirus. She was hospitalized in September then went to [facility]. Prior to this she has been at home. Has been in SNF so she not able to use her Astral. She received Astral NIV at home prior to going to SNF. She used in spurts at home but when her grandson jumped on the machine, she was afraid to use it. Harsh cough. Denies wheezing. Uses wheelchair. Can walk short distances, walked to the elevators an SNF. Denies GERD. Minimal BLE edema -takes diuretic. Denies dysphagia. SOCIAL: Social History Tobacco Use Smoking Status Former Current packs/day: 0.00 Average packs/day: 0.1 packs/day for 3.0 years (0.4 ttl pk-yrs) Types: Cigarettes Start date: 03/08/2019 Quit date: 03/08/2022 Years since quittin.6 Smokeless Tobacco Never Tobacco Comments smoked in college also \\ Review of Systems: All the pertinent positive and negative data were mentioned in the HPI section. Otherwise, ROS is negative or noncontributory. 10/27/2024 (in office), Visit date not found (telemedicine) Past Medical History: Diagnosis Date Acute appendicitis 01/29/2017 Acute respiratory failure with hypoxia and hypercapnia ([facility]) 06/19/2022 Chronic venous hypertension with ulcer ([facility]) 05/05/2022 Controlled substance agreement signed 01/28/2017 COPD exacerbation ([facility]) 12/26/2015 COPD, severity to be determined ([facility]) 12/26/2015 Diabetic retinopathy of right eye associated with type 2 diabetes mellitus ([facility]) 06/08/2021 Dyslipidemia 12/26/2015 Dyslipidemia, goal to be determined Gastroesophageal reflux disease without esophagitis 05/04/2023 Heart failure, diastolic, with acute decompensation ([facility]) 06/19/2022 Heart failure, diastolic, with acute decompensation ([facility]) 2023-10-28 Adding I50.33-Heart failure, diastolic, with acute decompensation ([facility]) Dx to History HTN, goal below 140/90 11/07/2014 HTN, goal to be determined Hypoxia 12/26/2015 Influenza A 12/29/2015 Kidney disease, chronic, stage III (GFR 30-59 ml/min) ([facility]) 06/28/2022 Major depressive disorder 07/15/2007 ICD-10 update of inactive term Obesity hypoventilation syndrome ([facility]) 06/28/2022 Obesity, BMI not known Personal history of colonic polyps PPD positive Restless leg syndrome Right abducens nerve palsy 06/19/2022 Sleep apnea SOB (shortness of breath) 12/26/2015 T2DM (type 2 diabetes mellitus) ([facility]) dx age 55 Type 2 diabetes mellitus with diabetic polyneuropathy, with long-term current use of insulin ([facility]) 12/10/2019 Current Outpatient Medications Medication Sig Dispense Refill Albuterol Sulfate (2.5 MG/3ML) 0.083% Inhalation Nebulization Solution (Proventil) One vial in nebulizer every 4 hours as needed for wheezing 3 mL 1 Insulin Glargine Solostar 100 UNIT/ML Subcutaneous Solution Pen-injector (WiSpryaglar KwikPen) Inject 15 units once daily at bedtime. Dx Code E 11.9 (Patient taking differently: Inject 21 units once daily at bedtime.) 15 mL 3 Omeprazole 20 MG Oral Capsule Delayed Release (PriLOSEC) take 1 capsule by mouth every morning 90 Capsule 1 Cyanocobalamin 1000 MCG Sublingual Tablet Sublingual PLACE 1,000MCG UNDER THE TONGUE DAILY 90 Tablet 1 Escitalopram Oxalate 10 MG Oral Tablet (Lexapro) Take 1 Tablet by mouth in the morning. In the morning.. 90 Tablet 1 Fluticasone Propionate 50 MCG/ACT Nasal Suspension (Flonase) Administer 2 Sprays into each nostril in the morning. 1 Each 5 Gabapentin 100 MG Oral Capsule (Neurontin) Take 2 Capsules by mouth in the morning and 2 Capsules at noon and 2 Capsules before bedtime. 90 Capsule 5 hydrOXYzine HCl 25 MG Oral Tablet Take 1 Tablet by mouth 3 times a day as needed for Anxiety. 90 Tablet 1 Simvastatin 20 MG Oral Tablet (Zocor) Take 1 Tablet by mouth every evening. 90 Tablet 1 Torsemide 20 MG Oral Tablet (Demadex) Take 3 Tablets by mouth in the morning. 90 Tablet 11 Acetaminophen 325 MG Oral Tablet (Tylenol) Take 1 Tablet by mouth every 6 hours as needed for Pain,Mild. CPAP every night at bedtime . FreeStyle Maria Luz 2 Sensor Use as directed . 1 Each 0 FreeStyle Maria Luz 2 [place] Device Use as directed . 1 Each 0 BD Insulin Syringe U/F 30G X 1/2" 0.3 ML (Insulin Syringe-Needle U-100) INJECT UNDER THE SKIN 4 TIMES A DAY 100 Each 2 Droplet Pen [place] 31G X 5 MM (Insulin Pen Needle) inject subcutaneously four times a day 1000 Each 99 OneTouch UltraSoft Lancets Use as directed 4 times a day as needed for Other (to check BS). Use up to four times a day as directed 100 Each 5 ReliOn Premier Classic Device Use to test blood sugar as directed RA Melatonin 1 MG Sublingual Tablet Sublingual (Melatonin) take 1 tablet by mouth at bedtime if needed for insomnia (Patient not taking: Reported on 10/27/2024) 30 Tablet 5 ReliOn Premier Test In Vitro Strip (Glucose Blood) Use to test blood sugar 4 times daily as directed 100 Strip 0 NovoLOG FlexPen 100 UNIT/ML Subcutaneous Solution Pen-injector (insulin aspart) Inject 12 units + scale three times a day with meals. Max of 20 units three times a day with meals. 15 mL 3 Bromfenac Sodium (Once-Daily) 0.09 % Ophthalmic Solution Instill 1 Drop into eye daily at noon. (Patient not taking: Reported on 11/04/2024) 2 mL 1 Carvedilol 3.125 MG Oral Tablet (Coreg) Take 1 Tablet by mouth 2 times a day with morning and evening meals. 180 Tablet 3 Ondansetron 4 MG Oral Tablet Disintegrating (Zofran) Place 1 Tablet on tongue every 8 hours as needed for Nausea. dissolve on tongue. 30 Tablet 1 Triamcinolone Acetonide 0.1 % External Cream (Aristocort) Apply 80 g topically to affected area every 12 hours as needed for Itching. Apply to areas of skin with itching 30 g 0 Nicotine 21 MG/24HR Transdermal Patch 24 Hour (Nicoderm CQ) Place 1 Patch over 24 hours topically on the skin in the morning. (Patient not taking: Reported on 11/04/2024) 28 Patch 0 Ammonium Lactate 12 % External Cream (Lac-Hydrin) Apply topically to affected area as needed for Dry Skin. Apply to all over body after shower and before bedtime for dry skin 385 g 2 traMADol HCl 50 MG Oral Tablet (Ultram) Take 1 Tablet by mouth every 8 hours as needed for Pain, Moderate or Pain, Severe. Ongoing therapy 45 Tablet 0 Current Facility-Administered Medications Medication Dose Route Frequency Provider Last Rate Last Admin Aflibercept (Eylea) intraviteal prefilled syringe 2 mg 2 mg Intravitreal PRN 2 mg at 11/04/24 1008 Aflibercept (Eylea) intraviteal prefilled syringe 2 mg 2 mg Intravitreal PRN 2 mg at 11/04/24 1008 lidocaine-epinephrine 2 %-1:[id number] inj 6 mg 0.3 mL Injection PRN 6 mg at 11/04/24 1008 albuterol-ipratropium (Duoneb) inhalation solution 3 mL 3 mL Nebulizer PRN 3 mL at 10/27/24 0945 Review of patient's allergies indicates: No Known Allergies CT CHEST WO CONTRAST 10/05/2024 Narrative EXAM EXAM: CT CHEST WO CONTRAST DATE and TIME: 10/05/2024 1:45 pm HISTORY CLINICAL INFORMATION: Rule out pneumonia versus CHF. TECHNIQUE CT chest without IV contrast. COMPARISON 09/15/2023. FINDINGS VESSELS: Mild thoracic aortic and moderate to severe coronary arterial calcifications. Enlarged main pulmonary artery measuring 38 millimeters in caliber without significant change indicating pulmonary arterial hypertension. Ectasia of the ascending aorta measuring 3.8 centimeters without significant change. MEDIASTINUM AND FREDERIC: Overall no significant change in the partially imaged right thyroid nodule. Thyroid nodules were better assessed on the ultrasound dated 02/12/2024. Follow-up as per recommendations of the ultrasound. An 8 millimeter intraluminal high density is present in the esophagus on image 17 of series 3. Small mediastinal lymph nodes which are nonspecific and likely reactive. Assessment of the frederic is limited due to absence of intravenous contrast. HEART: No gross pericardial effusion. Mitral annular calcification. PLEURA: There are no pleural effusions. LUNGS AND AIRWAYS: Dependent juxtapleural consolidation with associated patchy ground-glass densities are present in bilateral lower lobes. There is diffusely heterogenous attenuation of the lungs. Minimal septal thickening is present in bilateral lower lobes. New triangular juxtapleural density ispresent in the right lower lobe on image 213 of series 2. New right juxtapleural densities are present such as a new 11 x 9 millimeter juxtapleural density superior segment right lower lobe on image 103 of series 2 and 11 x 10 millimeter the juxtapleural density posterior right upper lobe image 91 series 2. Subsegmental scarring or atelectasis is present in the right middle lobe and lingula. Airways are patent centrally. CHEST WALL/SOFT TISSUES: There is no axillary lymphadenopathy. LINES AND DEVICES: None BONES: No osseous destruction. Multilevel degenerative changes are present in the thoracolumbar spine. UPPER ABDOMEN: The spleen is enlarged measuring 15.1 centimeters in transverse dimension without significant change. Mild incidental nodularity left adrenal gland. Cholelithiasis. Impression IMPRESSION 1. Dependent juxtapleural consolidation with associated patchy ground-glass densities in bilateral lower lobes. Differential considerations are atelectasis versus pneumonia. New juxtapleural densities, nonspecific and most likely related to related to atelectasis or pneumonia. Short-term follow-up evaluation is recommended in 6-8 weeks to ensure resolution. 2. Diffusely heterogenous attenuation of the lungs which could be related to mosaic attenuation from small vessel/small airway disease versus ground-glass opacification from pulmonary edema. Minimal septal thickening in bilateral lower lobes, nonspecific finding and could be related to interstitialthickening or pulmonary edema. 3. Intraluminal high density in the esophagus probably related to retained ingested material. Attention to follow-up. 4. Additional findings and details as above. FEV1 FVC FEV1/FVC TLC RV/TLC DLCO 12/17/23 1.13/48 1.46/49 77 Latest Reference Range & Units 10/05/24 11:07 10/27/24 08:57 11/10/24 08:49 pH, Arterial 7.350 - 7.450 units 7.265 (L) 7.381 7.380 pCO2, Arterial 35.0 - 45.0 mmHg 78.0 (HH) 62.5 (HH) 62.0 (HH) pO2, Arterial 75.0 - 100.0 mmHg 59.6 (L) 59.4 (L) 100.0 O2 Content, Arterial 15.0 - 24.0 %vol 13.3 (L) 13.7 (L) 17.7 O2 Flow, Arterial L/min 6 3 lpm 4 LPM Base Excess, Arterial -2.0 - 2.0 mmol/L 5.6 (H) 9.6 (H) 8.9 (H) Reduced Hemoglobin, Arterial 0.0 - 5.0 % total Hgb 11.9 (H) 10.8 (H) 2.5 Temperature C 37.0 37.0 37.0 Oxyhemoglobin, Arterial 94.0 - 99.0 % total Hgb 86.3 (L) 87.2 (L) 96.1 PHYSICAL EXAM BP 150/73 | Pulse 62 | Temp 37.2 °C (98.9 °F) | Resp 20 | Ht 1.626 m (5' 4") | Wt 112 kg (247 lb)| LMP 11/29/2010 | SpO2 98% Comment: 4l | BMI 42.40 kg/m² | BSA 2.25 m² Constitutional/General: No acute distress Head and Face: Head is normocephalic, No masses, lesions, tenderness or abnormalities noted, Face normal Ears, Nose and Throat Within normal limits:, Conjunctiva are pink and non- injected, sclera clear, pupils are equal, External ears normal, Nose:no epistaxis, no purulent discharge, no mucosal edema orerythema, Throat without lesions, No intraoral mucosal lesions, tongue midline with full mobility Chest/Respiratory: Normal respiratory muscle effort Lungs/Respiratory: decreased breath sounds both bases and scattered rhonchi bilaterally Cardiac Exam/Cardiovascular Exam: regular rate & rhythm Extremities: No edema and No clubbing Skin: complete skin exam not performed, but no obvious lesions meeting ABCDE criteria Neuro: grossly normal exam ASSESSMENT: PLAN/MEDICAL DECISION MAKING Chronic respiratory failure with hypoxia and hypercapnic respiratory failure Restrictive lung disease PAOLA, severe Obesity, Body mass index is 42.4 kg/m². HFpEF PLAN: - has Astral NIV.. had limited use (had concerns that the machine was not functioning correctly) and then was transitioned to SNF after a hospitalization in Sep 2024 - she now has the Astral device at SNF but has not used. She is willing to start. Use anytime sleepanticipated or planned - ABG today with baseline CO2 62 mm HG - needs new cushion for mask-- request to adapt - will ask adapt to connect oxygen to NIV tubing rather than the machine itself - last seen on 10/27/24 and RVP + coronavirus. Completed ABX and prednisone. Improving but mucus persists: restart guaifenesin. Tessalon as need - Duoneb QID , start flutter; use after each neb QID - prior chest CT with GGO, consolidation. Follow up in 8 weeks. Current settings: Device: Astral Mode: iVAPS-AE Patient height: 64" Target rate: 15, EPAP min: 6 EPAP max: 10 PS min: 8 PS max: 20 Ti min: 0.5 second Ti Max: 1.2 second Follow up 3- months with ABG that day AZEEM Duran Pulmonary Medicine [facility] Kymberly MIRANDA [facility] [place] [phone] documented in this encounter Nursing Notes * Yamileth Hale LPN - 11/10/2024 8:36 AM EST Patient identified by name and date of . 10/27/2024 (in office), Visit date not found (telemedicine) Do you think you have Covid ? Does anyone in your household have Covid ? Any upcoming procedures ? Any recent studies? Any new concerns? F/u pt brought in machine documented in this encounter Plan of Treatment Upcoming Encounters Date Type Department Care Team (Late st Contact Info) Description 01/07/2025 12:45 PM EDT Appointment Radiology Kymberly ALLEN [address] [place] [phone] 01/22/2025 1:15 PM EDT Imaging Radiology [facility] [address] [place] [address] 02/09/2025 10:00 AM EDT Office Visit Pulmonary Medicine [facility] Kymberly MIRANDA [address] [place] [phone] Braxton Elizalde MD [address] [place] [address] [place] [id number] Scheduled Orders Name Type Priority Associated Diagnoses Orde r Schedule CT CHEST WO CONTRAST Medical Imaging Routine Chronic respiratory failure with hypoxia and hypercapnia (HCC) Expected: 01/07/2025, Expires: 12/08/2025 BLOOD GAS, ARTERIAL Lab Routine Chronic respiratory failure with hypoxia and hypercapnia (HCC) Expected: 11/10/2024, Expires: 11/10/2025 Health Maintenance Due Date Last Done Comments [...] this encounter Medical Devices Implanted Type Area Aviation Technician Aircraft Device Identifier Shelf Expiration Date Model / Serial / Lot Cath Drainage 10fr [facility]-10-038 - [id number] Implanted:Qty : 1 on 05/07/2023 at [facility] Right: Abdomen Bhang [employer] [id number] 02/15/2026 [facility]10-03 8 / / [id number] documented as of this encounter Visit Diagnoses Diagnosis Chronic respiratory failure with hypoxia and hypercapnia (HCC)- Primary Sleep apnea, unspecified type Obesity hypoventilation syndrome (HCC) Obesity hypoventilation syndrome Type 2 diabetes mellitus with diabetic polyneuropathy, with long-term current use of insulin (HCC)- Primary Cellulitis, unspecified cellulitis site Stasis dermatitis of both legs Varicose veins of lower extremities with inflammation documented in this encounter Advance Directives * Full Code [...] Power of Attor cristin? No Care Teams Coal Bagger Relationship Specialty Start Date End Date Denis Urbina MD [address] [place] [address] PCP - General Family Medicine 04/17/22 documented as of this encounter
--- OUTSIDE RECORDS SUMMARY | 2025-01-09 05:26 | External Medical Summary | Summary of Care ---
Author Name Unknown Organization [facility] Address [address] [place] [address] Phone [phone] Care Team Providers Care Quality Control Manager Name Role Phone Denis Urbina MD Primary Care Provider + [phone] Reason for Visit * Reason Comments eRx-Medication Refill Encounter Details Date Type Department Care Team (Late st Contact Info) Description 12/24/2024 Refill [facility] [address] [place] [address] Ana Holland, PARoyce [address] [place] [address] Episode of recurrent major depressive disorder, unspecified depression episode severity (HCC) Allergies No known active allergiesdocumented as [...] Each 022 Active FreeStyle Maria Luz 2 [place] Device Use as directed . 1 Each 022 Active BD Insulin Syringe U/F 30G X 1/2" 0.3 ML (Insulin Syringe-Needle U-100)Indications :Type 2 diabetes mellitus without complication (HCC),Type 2 diabetes mellitus without complication, with long-term current use of insulin (HCC) INJECT UNDER THE SKIN 4 TIMES A DAY 100 Each 2 023 Active Droplet Pen [place] 31G X 5 MM (Insulin Pen Needle)Indication s:Type 2 diabetes mellitus without complication, with long-term current use of insulin (HCC) inject subcutaneously four times a day 1000 Each 023 Active OneTouch UltraSoft LancetsIndication s:Type 2 diabetes mellitus without complication, unspecified whether intermission coordinator insulin use (HCC) Use as directed 4 times a day as needed for Other (to check BS). Use up to four times a day as directed 100 Each 5 024 Active ReliOn Premier Classic Device Use to test blood sugar as directed 024 Active RA Melatonin 1 MG Sublingual Tablet Sublingual (Melatonin)Indica tions:Insomnia, unspecified type take 1 tablet by mouth at bedtime if needed for insomnia 30 Tablet 5 024 Active ReliOn Premier Test In Vitro Strip (Glucose Blood) Use to test blood sugar 4 times daily as directed 100 Strip 024 Active Insulin Glargine Solostar 100 UNIT/ML Subcutaneous Solution Pen-injector (Basaglar KwikPen) Inject 15 units once daily at bedtime. Dx Code E 11.9 15 mL 3 024 Active Additional Information Patient taking differently: Inject 21 units once daily at bedtime., Informant: Patient, Pharmacy, Reported on 12/23/2024 NovoLOG FlexPen 100 UNIT/ML Subcutaneous Solution Pen-injector (insulin aspart) Inject 12 units + scale three times a day with meals. Max of 20 units three times a day with meals. 15 mL 3 024 Active Bromfenac Sodium (Once-Daily) 0.09 % Ophthalmic Solution Instill 1 Drop into eye daily at noon. 2 mL 1 024 Active Additional Information Patient not taking.Informant: Patient, Pharmacy, Reported on 11/04/2024 Cyanocobalamin 1000 MCG Sublingual Tablet SublingualIndicat ions:B12 [address] 1,000MCG UNDER THE TONGUE DAILY 90 Tablet 1 024 Active Fluticasone Propionate 50 MCG/ACT Nasal Suspension (Flonase)Indicati ons:Rhinosinusiti s Administer 2 Sprays into each nostril in the morning. 1 Each 024 Active Gabapentin 100 MG Oral Capsule (Neurontin) Take 2 Capsules by mouth in the morning and 2 Capsules at noon and 2 Capsules before bedtime. 90 Capsule 5 Active Simvastatin 20 MG Oral Tablet (Zocor) Take 1 Tablet by mouth every evening. 90 Tablet 024 Active Carvedilol 3.125 MG Oral Tablet (Coreg) Take 1 Tablet by mouth 2 times a day with morning and evening meals. 180 Tablet 3 024 Active Ondansetron 4 MG Oral Tablet Disintegrating [...] bedtime for dry skin 385 g 2 025 Active traMADol HCl 50 MG Oral Tablet (Ultram)Indicatio ns:Skin ulcer of multiple sites of lower extremity, unspecified laterality, limited to breakdown of skin (HCC) Take 1 Tablet by mouth every 8 hours as needed for Pain, Moderate or Pain, Severe. Ongoing therapy 45 Tablet 025 Active Flutter DeviceIndications :Chronic respiratory failure with hypoxia and hypercapnia (HCC) As directed. 1 Each 025 Active guaiFENesin ER 600 MG Oral Tablet Extended Release 12 Hour (Humibid LA) Take 1 Tablet by mouth 2 times a day as needed for Cough or Congestion. 60 Tablet 2 025 Active Benzonatate 100 MG Oral CapsuleIndication s:Chronic respiratory failure with hypoxia and hypercapnia (HCC) Take 1 Capsule by mouth 2 times a day as needed for Cough. 30 Capsule 1 025 Active Escitalopram Oxalate 10 MG Oral Tablet (Lexapro)Indicati ons:Episode of recurrent major depressive disorder, unspecified depression episode severity (HCC) take 1 tablet by mouth every morning 90 Tablet 1 025 Active Mupirocin 2 % External Ointment (Bactroban) Apply topically to affected area 2 times a day. To affected area (R knee abrasions) for 7-10 days. 22 g 025 Active Torsemide 20 MG Oral Tablet (Demadex) Take 3 Tablets by mouth in the morning. 90 Tablet 1 025 Active hydrOXYzine HCl 25 MG Oral TabletIndications :Episode of recurrent major depressive disorder, unspecified depression episode severity (HCC) take 1 tablet by mouth three times a day if needed for anxiety 90 Tablet 1 025 Active hydrOXYzine HCl 25 MG Oral TabletIndications :Episode of recurrent major depressive disorder, unspecified depression episode severity (HCC) Take 1 Tablet by mouth 3 times a day as needed for Anxiety. 90 Tablet 1 024 2024 Discontinued Hospital, Clinic, or Other [...] IZ PRN 04/17/2024 04/17/2025 Active lidocaine-epinephrine 2 %-1:361448 inj 6 mgIndications:Moderate nonproliferative diabetic retinopathy of [...] yrs 12/08/2014,03/31/2011,02/23 Pneumococcal Conjugate Vacci ne, 20-valent ([id number]) 06/06/2023 Pneumococcal Polysaccharide PPV23 (Pneumovax) 02/10/2011 Seasonal [...] encounter Miscellaneous Notes * Telephone Encounter - Ana Holland PA-C - 12/25/2024 4:13 PM EDTSigned Prescriptions: Disp Refills hydrOXYzine HCl 25 MG Oral Tablet 90 Tab*1 Sig: take 1 tablet by mouth three times a day if needed for anxiety Authorizing Provider: ANA HOLLAND * Telephone Encounter - In[facility] - 12/25/2024 2:39 PM EDT Pending Prescriptions: Disp Refills hydrOXYzine HCl 25 MG Oral Tablet [Pharmac*90 Tab*1 Sig: take 1 tablet by mouth three times a day if needed for anxiety Electronically signed by Inocente Bro [facility] at 12/25/2024 2:39 PM EDT * Telephone Encounter - Inocente [facility] - 12/25/2024 2:39 PM EDT Pending Prescriptions: Disp Refills hydrOXYzine HCl 25 MG Oral Tablet [Pharmac*90 Tab*1 Sig: take 1 tablet by mouth three times a day if needed for anxiety 06/09/2024 (in office), 06/29/2023 (telemedicine) Visit date not found If no future appointments scheduled, and last appointment is greater than a year ago, please schedule patient for a follow-up appointment Last date the medication was ordered: 06/04/24 Pharmacy: [id number] Is this request for a controlled substance?No Urine Drug Screen:No results found. However, due to the size of the patient record, not all encounters were searched. Please check Results Review for a complete set of results. Patient Phone Numbers mobile [phone] Labs: Lab Results Component Value Date/Time CREAT 1.5 (H) 11/03/2024 05:04 AM CREAT 1.9 (H) 09/15/2023 04:26 AM CREAT 0.8 12/10/2019 10:11 AM POTASSIUM 4.4 11/03/2024 05:04 AM POTASSIUM 4.9 09/15/2023 04:26 AM POTASSIUM 3.8 12/10/2019 10:11 AM TSH 1.69 10/04/2024 01:46 PM TSH 5.03 (H) 12/10/2019 10:11 AM LDL 68 04/24/2024 10:28 AM LDL 65 04/24/2024 10:28 AM LDL 191 (H) 04/19/2016 10:05 AM LDL NOT APPLICABLE 04/19/2016 10:05 AM ALT 7 (L) 10/04/2024 07:55 AM ALT 20 12/10/2019 10:11 AM HGBA1C 8.2 (H) 10/03/2024 04:48 AM HGBA1C 6.4 04/19/2016 10:05 AM Electronically signed by Inocente Bro [facility] at 12/25/2024 2:39 PM EDT documented in this encounter Plan of Treatment Upcoming Encounters Date Type Department Care Team (Late st Contact Info) Description 01/07/2025 12:45 PM EDT Appointment Radiology [facility] [address] [facility] [place] [address] 01/22/2025 1:15 PM EDT Imaging Radiology [facility] [address] [place] [address] 02/09/2025 10:00 AM EDT Office Visit Pulmonary Medicine [facility] Kymberly MIRANDA [address] [facility] [place] [address] Braxton Elizalde MD [address] [place] [address] [place] [address] Health Maintenance Due Date Last Done Comments [...] this encounter Medical Devices Implanted Type Area Mixer Operator Vacuum Pan Salt Device Identifier Shelf Expiration Date Model / Serial / Lot Cath Drainage 10fr [facility]-10-038 - [id number] Implanted:Qty : 1 on 05/07/2023 at [facility] Right: Abdomen [employer] [id number] 02/15/2026 [facility]-10-03 8 / / [id number] documented as of this encounter Visit Diagnoses Diagnosis Type 2 diabetes mellitus with diabetic polyneuropathy, with long-term current use of insulin (HCC)- Primary Cellulitis, unspecified cellulitis site Stasis dermatitis of both legs Varicose veins of lower extremities with inflammation Episode of recurrent major depressive disorder, unspecified depression episode severity ([facility]) documented in this encounter Advance Directives * [...] Power of Attor cristin? No Care Teams Quality Control Manager Relationship Specialty Start Date End Date Denis Urbina MD [address] [place] [address] PCP - General Family Medicine 04/17/22 documented as of this encounter
--- OUTSIDE RECORDS SUMMARY | 2025-01-09 05:26 | External Medical Summary | Summary of Care ---
Author Name Unknown Organization [facility] Address [address] [place] [address] Phone [phone] Care Team Providers Care Aviation Ordnance Officer Name Role Phone Denis Urbina MD Primary Care Provider + [phone] Reason for Visit * Reason Onset Date Comments Medication Question 12/21/2024 Encounter Details Date Type Department Care Team (Late st Contact Info) Description 12/21/2024 Telephone [facility] Cardiology [address] [facility] [place] [id number] Armando Santos, DO [address] [facility] [address] Medication Question Allergies No known active allergiesdocumented as of this encounter (statuses as of 12/21/2024) Medications Albuterol Sulfate (2.5 MG/3ML) 0.083% Inhalation [...] 06/27/20 22 Active FreeStyle Maria Luz 2 [place] Device Use as directed . 1 Each 06/27/20 22 Active BD Insulin Syringe U/F 30G X 1/2" 0.3 ML (Insulin Syringe-Needle U-100)Indications: Type 2 diabetes mellitus without complication (HCC),Type 2 diabetes mellitus without complication, with long-term current use of insulin (HCC) INJECT UNDER THE SKIN 4 TIMES A DAY 100 Each 2 06/06/20 23 Active Droplet Pen [place] 31G X 5 MM (Insulin Pen Needle)Indications :Type 2 diabetes mellitus without complication, with long-term current use of insulin (HCC) inject subcutaneously four times a day 1000 Each 06/07/20 23 Active OneTouch UltraSoft LancetsIndications :Type 2 diabetes mellitus without complication, unspecified whether buttermilk drier operator insulin use (HCC) Use as directed 4 [...] 24 Active hydrOXYzine HCl 25 MG Oral TabletIndications: Episode of recurrent major depressive disorder, unspecified depression episode severity (HCC) Take 1 Tablet by mouth 3 times a day as needed for Anxiety. 90 Tablet 06/04/20 24 Active Simvastatin 20 MG Oral [...] with itching 30 g 10/10/19 25 Active Torsemide 20 MG Oral Tablet (Demadex) Take 3 Tablets by mouth in the morning. 90 Tablet 10/10/19 25 Active Ammonium Lactate 12 % [...] and hypercapnia (HCC) As directed. 1 Each 02/17/20 25 Active guaiFENesin ER 600 MG Oral Tablet Extended Release 12 Hour (Humibid LA) Take 1 Tablet by mouth 2 times a day as needed for Cough or Congestion. 60 Tablet 2 11/10/19 Active Benzonatate 100 MG Oral CapsuleIndications :Chronic respiratory failure with hypoxia and hypercapnia (HCC) Take 1 Capsule by mouth 2 times a day as needed for Cough. 30 Capsule 1 11/10/19 Active Escitalopram Oxalate 10 MG Oral Tablet (Lexapro)Indicatio ns:Episode of recurrent major depressive disorder, unspecified depression episode severity (HCC) take 1 tablet by mouth every morning 90 Tablet 1 12/05/19 Active Doxycycline Hyclate 100 MG Oral Capsule Take 1 Capsule by mouth in the morning and 1 Capsule before bedtime. Do all this for 10 days. Until gone.. 20 Capsule 12/15/19 25 025 Active Mupirocin 2 % External Ointment (Bactroban) Apply topically to affected area 2 times a day. To affected area (R knee abrasions) for 7-10 days. 22 g 12/15/19 25 Active Hospital, Clinic, or Other Facility Administered [...] IZ PRN 04/17/2024 04/17/2025 Active lidocaine-epinephrine 2 %-1:343750 inj 6 mgIndications:Moderate nonproliferative diabetic retinopathy of [...] as of this encounter (statuses as of 12/21/2024) Active Problems Problem Noted Date Diagnosed Date [...] as of this encounter (statuses as of 12/21/2024) Resolved Problems Problem Noted Date Diagnosed Date [...] as of this encounter (statuses as of 12/21/2024) Immunizations Name Administration Dates Next Due Covid-19 Ad26, Single Dose ([place]/J&J) 021 Hepatitis B, 20+ yrs 12/08/2014,03/31/2011,02/23 Pneumococcal Conjugate Vacci ne, 20-valent ([id number]) 06/06/2023 Pneumococcal Polysaccharide PPV23 (Pneumovax) 02/10/2011 Seasonal [...] encounter Miscellaneous Notes * Telephone Encounter - Armando Santos DO - 12/21/2024 5:18 PM EDT Received a page stating: "MEERA MCGRAW 59 HAVING MEDICATION PROBLEM WATER PILLS [phone]" I called the number listed in the page, twice with no answer. I also tried other numbers listed in her chart with no luck. Patient has appointment with Angela Briggs CRNP coming up on 12/24/2024 10:30 AM. documented in this encounter Plan of Treatment Upcoming Encounters Date Type Department Care Team (Late st Contact Info) Description 12/23/2024 10:30 AM EDT Office Visit Ophthalmology [facility] [address] [place] [address] Archana Nava MD [address] [place] [address] 12/24/2024 10:30 AM EDT Office Visit Cardiology [facility] [address] [facility] [place] [address] Angela Briggs CRNP [address] [facility] [address] 01/07/2025 12:45 PM EDT [facility] [address] [facility] [place] [address] 01/22/2025 1:15 PM EDT Imaging Radiology [facility] [address] [place] [address] 02/09/2025 10:00 AM EDT [facility] [address] [facility] [place] [address] Braxton Elizalde MD [address] [place] [address] 03/03/2025 1:00 PM EDT Office Visit Ophthalmology [facility] [address] [place] [address] Washington Gordon MD [address] [place] [address] St, Nurse Ophthalmology [address] [address] Health Maintenance Due Date Last Done Comments [...] COVID-19 Vaccine (2 - season) 2024 06/18/2021 Influenza Vaccine (FLU shot) [...] this encounter Medical Devices Implanted Type Area Applied Researcher Device Identifier Shelf Expiration Date Model / Serial / Lot Cath Drainage 10fr [facility]-10-038 - [id number] Implanted:Qty : 1 on 05/07/2023 at [facility] Right: Abdomen [employer] [id number] 02/15/2026 [facility]-10-03 8 / / [id number] documented as of this encounter Advance Directives [...] Power of Attor cristin? No Care Teams Aviation Ordnance Officer Relationship Specialty Start Date End Date Denis Urbina MD [address] [place] [address] PCP - General Family Medicine 04/17/22 documented as of this encounter
--- OUTSIDE RECORDS SUMMARY | 2025-01-09 05:26 | External Medical Summary | Summary of Care ---
Author Name Unknown Organization [facility] Address [address] [place] [address] Phone [phone] Care Team Providers Care Office Employee Name Role Phone Denis Urbina MD Primary Care Provider + [phone] Reason for Visit * Reason Onset Date Comments Medication Question 12/21/2024 Encounter Details Date Type Department Care Team (Late st Contact Info) Description 12/21/2024 Telephone [facility] [address] [facility] [place] [phone] Armando Santos, DO [address] [facility] [address] Medication Question Allergies No known active allergiesdocumented as of this encounter (statuses as of 12/23/2024) Medications Albuterol Sulfate (2.5 MG/3ML) 0.083% Inhalation [...] 06/27/20 22 Active FreeStyle Maria Luz 2 [place] Device Use as directed . 1 Each 06/27/20 22 Active BD Insulin Syringe U/F 30G X 1/2" 0.3 ML (Insulin Syringe-Needle U-100)Indications :Type 2 diabetes mellitus without complication (HCC),Type 2 diabetes mellitus without complication, with long-term current use of insulin (HCC) INJECT UNDER THE SKIN 4 TIMES A DAY 100 Each 2 06/06/20 23 Active Droplet Pen [place] 31G X 5 MM (Insulin Pen Needle)Indication s:Type 2 diabetes mellitus without complication, with long-term current use of insulin (HCC) inject subcutaneously four times a day 1000 Each 06/07/20 23 Active OneTouch UltraSoft LancetsIndication s:Type 2 diabetes mellitus without complication, unspecified whether terminal gauger insulin use (HCC) Use as directed 4 [...] tablet by mouth every morning 90 Tablet 12/05/19 25 Active Doxycycline Hyclate 100 MG [...] in the morning. 90 Tablet 10/10/19 025 [facility](Ref ill) Hospital, Clinic, or Other Facility Administered [...] IZ PRN 04/17/2024 04/17/2025 Active lidocaine-epinephrine 2 %-1:452545 inj 6 mgIndications:Moderate nonproliferative diabetic retinopathy of [...] as of this encounter (statuses as of 12/23/2024) Active Problems Problem Noted Date Diagnosed Date [...] as of this encounter (statuses as of 12/23/2024) Resolved Problems Problem Noted Date Diagnosed Date [...] as of this encounter (statuses as of 12/23/2024) Immunizations Name Administration Dates Next Due Covid-19 Ad26, Single Dose ([place]/J&J) 021 Hepatitis B, 20+ yrs 12/08/2014,03/31/2011,02/23 Pneumococcal Conjugate Vacci ne, 20-valent ([id number]) 06/06/2023 Pneumococcal Polysaccharide PPV23 (Pneumovax) 02/10/2011 Seasonal [...] of Assessment Author Yes 10/03/2024 7:48 PM Lokseh Church RN * Do you have difficulty [...] of Assessment Author No 10/03/2024 7:48 PM Rosa Isela Church RN documented as of this encounter Mental Status * Because of a physical, mental, or emotional condition, do you have serious difficulty concentrating, remembering, or making decisions? (5 years old or older) Answer Entry Date Author No 10/03/2024 7:48 PM Lokesh Church RN documented in this encounter Miscellaneous Notes * Telephone Encounter - Angela Briggs CRNP - 12/22/2024 4:37 PM EDT Called Meera. She is staying with her brother in the [facility] as her home was condemned. Refill for torsemide was sent to a local pharmacy We will make our up coming visit telephone as shedoes not have transportation for this next visit. * Telephone Encounter - Armando Santos DO - 12/21/2024 5:18 PM EDT Received a page stating: "MEERA MCGRAW 59 HAVING MEDICATION PROBLEM WATER PILLS [phone]" I called the number listed in the page, twice with no answer. I also tried other numbers listed in her chart with no luck. Patient has appointment with Angela Briggs CRNP coming up on 12/24/2024 10:30 AM. documented in this encounter Plan of Treatment Upcoming Encounters Date Type Department Care Team ([facility] st Contact Info) Description 12/23/2024 10:30 AM EDT Office Visit Ophthalmology [facility] [address] [place] [address] Archana Nava MD [address] [place] [address] 12/24/2024 10:30 AM EDT [facility] [address] [facility] [place] [address] Angela Briggs CRNP [address] [facility] [place] [address] 01/07/2025 12:45 PM EDT Appointment Radiology Kymberly ALLEN [address] [facility] [place] [address] 01/22/2025 1:15 PM EDT Imaging Radiology [facility] [address] [place] [address] 02/09/2025 10:00 AM EDT Office Visit Pulmonary Medicine [facility]Kymberly [address] [place] [address] Braxton Elizalde MD [address] [facility] [place] [address] 03/03/2025 1:00 PM EDT Office Visit Ophthalmology [facility] [address] [place] [address] Washington Gordon MD [address] [place] [address] St, Nurse Ophthalmology [facility] [address] [place] [address] Health Maintenance Due Date Last Done [...] Depression Monitoring 12/19/2024 12/20/2023 HbA1c 04/02/2025 10/03/2024, 04/2024, 04/24/2024, Additional history exists GFR 05/03/2025 11/03/2024, 11/2024, 10/20/2024, Additional history exists Diabetic Eye Exam 11/04/2025 11/04/2024, , 11/04/2024, Additional history exists O2 ASSESSMENT COMPLETED IN PAST YEAR FOR COPD 12/14/2025 12/14/2024 Lipid Panel 04/24/2029 04/24/2024, 09/2023, 12/26/2023, Additional history exists Pap Smear [...] this encounter Medical Devices Implanted Type Area Water Manager Device Identifier Shelf Expiration Date Model / Serial / Lot Cath Drainage 10fr [facility]-10-038 - [id number] Implanted:Qty : 1 on 05/07/2023 at [facility] Right: Abdomen [employer] [id number] 02/15/2026 [facility]-10-03 8 / / [id number] documented as of this encounter Advance Directives [...] Power of Attor cristin? No Care Teams Office Employee Relationship Specialty Start Date End Date Denis Urbina MD [address] [place] [address] PCP - General Family Medicine 04/17/22 documented as of this encounter
--- OUTSIDE RECORDS SUMMARY | 2025-01-09 05:27 | External Medical Summary | Summary of Care ---
Author Name Unknown Organization [facility] Address [address] [place] [address] Phone [phone] Care Team Providers Care Sleep Lab Technician Name Role Phone Denis Urbina MD Primary Care Provider + [phone] Reason for Visit * Reason Onset Date Comments Outpatient Testing 12/05/2024 Encounter Details Date Type Department Care Team (Late st Contact Info) Description 12/05/2024 Telephone Nephrology [facility] MIRANDA [address] [facility] [place] [phone] Elie Dixon MD [address] [facility] [place] [address] Outpatient Testing Allergies No known active allergiesdocumented as of this encounter (statuses as of 12/05/2024) Medications Albuterol Sulfate (2.5 MG/3ML) 0.083% Inhalation [...] 06/27/20 22 Active FreeStyle Maria Luz 2 [place] Device Use as directed . 1 Each 06/27/20 22 Active BD Insulin Syringe U/F 30G X 1/2" 0.3 ML (Insulin Syringe-Needle U-100)Indications: Type 2 diabetes mellitus without complication (HCC),Type 2 diabetes mellitus without complication, with long-term current use of insulin (HCC) INJECT UNDER THE SKIN 4 TIMES A DAY 100 Each 2 06/06/20 23 Active Droplet Pen [place] 31G X 5 MM (Insulin Pen Needle)Indications :Type 2 diabetes mellitus without complication, with long-term current use of insulin (HCC) inject subcutaneously four times a day 1000 Each 06/07/20 23 Active OneTouch UltraSoft LancetsIndications :Type 2 diabetes mellitus without complication, unspecified whether extermination inspector insulin use (HCC) Use as directed 4 [...] 1,000MCG UNDER THE TONGUE DAILY 90 Tablet 06/04/20 24 Active Fluticasone Propionate 50 MCG/ACT Nasal Suspension (Flonase)Indicatio ns:Rhinosinusitis Administer 2 Sprays into each nostril in the morning. 1 Each 06/04/20 24 Active Gabapentin 100 MG Oral Capsule (Neurontin) Take 2 Capsules by mouth in the morning and 2 Capsules at noon and 2 Capsules before bedtime. 90 Capsule 06/04/20 24 Active hydrOXYzine HCl 25 MG [...] Nausea. dissolve on tongue. 30 Tablet 06/09/20 24 Active Triamcinolone Acetonide 0.1 % External Cream (Aristocort) Apply 80 g topically to affected area every 12 hours as needed for Itching. Apply to areas of skin with itching 30 g 10/10/19 25 Active Torsemide 20 MG Oral Tablet (Demadex) Take 3 Tablets by mouth in the morning. 90 Tablet 10/10/19 25 Active Nicotine 21 MG/24HR Transdermal Patch 24 Hour (Nicoderm CQ) Place 1 Patch over 24 hours topically on the skin in the morning. 28 Patch 10/11/19 25 Active Additional Information Patient not taking.Reported on 11/04/2024 Ammonium Lactate 12 % External Cream (Lac-Hydrin) Apply topically to affected area as needed for Dry Skin. Apply to all over body after shower and before bedtime for dry skin 385 g 10/10/19 25 Active traMADol HCl 50 MG Oral Tablet (Ultram)Indication s:Skin ulcer of multiple sites of lower extremity, unspecified laterality, limited to breakdown of skin (HCC) Take 1 Tablet by mouth every 8 hours as needed for Pain, Moderate or Pain, Severe. Ongoing therapy 45 Tablet 10/10/19 Active Flutter DeviceIndications: Chronic respiratory failure with hypoxia and hypercapnia (HCC) As directed. 1 Each 11/10/19 Active guaiFENesin ER 600 MG Oral Tablet [...] for Cough. 30 Capsule 1 11/10/19 Active Omeprazole 20 MG Oral Capsule Delayed Release (PriLOSEC)Indicati ons:Gastroesophage al reflux disease without esophagitis take 1 capsule by mouth every morning 90 Capsule 2 11/18/19 Active Escitalopram Oxalate 10 MG Oral Tablet (Lexapro)Indicatio ns:Episode of recurrent major depressive disorder, unspecified depression episode severity (HCC) take 1 tablet by mouth every morning 90 Tablet 1 12/05/19 Active Hospital, Clinic, or Other Facility Administered [...] IZ PRN 04/17/2024 04/17/2025 Active lidocaine-epinephrine 2 %-1:145072 inj 6 mgIndications:Moderate nonproliferative diabetic retinopathy of [...] as of this encounter (statuses as of 12/05/2024) Active Problems Problem Noted Date Diagnosed Date Excoriation 10/10/2024 Hyperkalemia 10/04/2024 Cellulitis 10/04/2024 Acute on chronic respiratory failure with hyperc [...] with long-term current use of insulin 12/10/2019 DDD (degenerative disc disease), lumbar 05/15/20 16 [...] as of this encounter (statuses as of 12/05/2024) Resolved Problems Problem Noted Date Diagnosed Date [...] as of this encounter (statuses as of 12/05/2024) Immunizations Name Administration Dates Next Due Covid-19 Ad26, Single Dose (Alona/J&J) 021 Hepatitis B, 20+ yrs 12/08/2014,03/31/2011,02/23 Pneumococcal Conjugate Vacci ne, 20-valent ([id number]) 06/06/2023 Pneumococcal Polysaccharide PPV23 (Pneumovax) 02/10/2011 Seasonal [...] No 01/22/2024 Does the household have a [facility] source of income? (Household - for ages [...] Lokesh Church RN documented in this encounter Plan of Treatment Upcoming Encounters Date Type Department Care Team (Late st Contact Info) Description 12/15/2024 4:20 PM EDT [facility] [address] [facility] [place] [address] Elie Dixon MD [address] [facility] [place] [address] 12/23/2024 10:30 AM EDT Office Visit Ophthalmology [facility] [address] [place] [address] Archana Nava MD [address] [place] [address] 12/24/2024 10:30 AM EDT [facility] [address] [facility] [place] [address] Angela Briggs CRNP [address] [facility] [place] [address] 01/07/2025 12:45 PM EDT [facility]ment [facility] [address] [facility] [place] [address] 01/22/2025 1:15 PM EDT Imaging Radiology [facility] [address] [place] [address] 02/09/2025 10:00 AM EDT Office Visit [facility]monary [facility] [address] [facility] [place] [address] Braxton Elizalde MD [address] [facility] [place] [address] 03/03/2025 1:00 PM EDT Office Visit Ophthalmology [address] [address] [place] Gordon MD [address] [address] , Nurse Ophthalmology [address] [address] Scheduled Orders Name Type Priority Associated Diagnoses Orde r Schedule 25-HYDROXY VITAMIN D Lab STAT Kidney disease, chronic, stage IV (GFR 15-29 ml/min) ([facility]) Expected: 12/05/2024, Expires: 12/05/2025 ALBUMIN / CREATININE RATIO, URINE Lab STAT Kidney disease, chronic, stage IV (GFR 15-29 ml/min) ([facility]) Expected: 12/05/2024, Expires: 12/05/2025 HEPATITIS B SURFACE ANTIBODY Lab STAT Kidney disease, chronic, stage IV (GFR 15-29 ml/min) ([facility]) Expected: 12/05/2024, Expires: 12/05/2025 PTH Lab STAT Kidney disease, chronic, stage IV (GFR 15-29 ml/min) ([facility]) Expected: 12/05/2024, Expires: 12/05/2025 Health Maintenance Due Date Last Done Comments DXA Scan 1957 Alpha-1 Antitrypsin 1975 Cologuard 2002 Colonoscopy 2002 Sigmoidoscopy 2002 Zoster Vaccines (1 of 2) 2007 Mammogram 03/02/2011 03/02/2010, 02/16/2010 DTap/Tdap Vaccines (2 - Td or Tdap) [...] ASSESSMENT COMPLETED IN PAST YEAR FOR COPD 11/10/2025 11/10/2024 Lipid Panel 04/24/2029 04/24/2024, 08/0 09/2023, 12/26/2023, Additional history exists Pap Smear Discontinued 02/17/2010 Hepatitis B Vaccine Completed 12/08/2014, 03/31/2011, 02/23/2011 Pneumococcal Vaccine: 50+ Years Completed 06/06/2023, 02/10/2011 HPV (Gardasil) Vaccine Aged Out No lo nger eligible based on patient's age to complete this topic MENINGOCOCCAL (MENACTRA/MENVEO) Aged Out No longer eligible based on patient's age to complete this topic Meningitis B Vaccine (Bexsero/Trumemba) Aged Out No longer eligible based on patient's age to complete this topic documented as of this encounter Medical Devices Implanted Type Area Data Architect Manager Device Identifier Shelf Expiration Date Model / Serial / Lot Cath Drainage 10fr [facility]-10-038 - [id number] Implanted:Qty : 1 on 05/07/2023 at [facility] Right: Abdomen [employer] [id number] 02/15/2026 [facility]-10-03 8 / / [id number] documented as of this encounter Visit Diagnoses Diagnosis Kidney disease, chronic, stage IV (GFR 15-29 ml/min) (HCC)- Primary Chronic kidney disease, Stage IV (severe) documented in this encounter Advance Directives * [...] Power of Attor cristin? No Care Teams Sleep Lab Technician Relationship Specialty Start Date End Date Denis Urbina MD [address] [place] [address] PCP - General Family Medicine 04/17/22 documented as of this encounter
--- OUTSIDE RECORDS SUMMARY | 2025-01-09 05:27 | External Medical Summary | Summary of Care ---
Author Name Unknown Organization [facility] Address [address] [place] [address] Phone [phone] Care Team Providers Care Freight Adjuster Name Role Phone Denis Urbina MD Primary Care Provider + [phone] Encounter Details Date Type Department Care Team (Late st Contact Info) Description 12/09/2024 Orders Only PATIENT PORTAL DO NOT DELETE THIS DEPT USED BY [place] [id number] Allergies No known active allergiesdocumented as of this encounter (statuses as of 12/09/2024) Medications Albuterol Sulfate (2.5 MG/3ML) 0.083% Inhalation [...] 06/27/20 22 Active FreeStyle Maria Luz 2 [place] Device Use as directed . 1 Each 06/27/20 22 Active BD Insulin Syringe U/F 30G X 1/2" 0.3 ML (Insulin Syringe-Needle U-100)Indications: Type 2 diabetes mellitus without complication (HCC),Type 2 diabetes mellitus without complication, with long-term current use of insulin (HCC) INJECT UNDER THE SKIN 4 TIMES A DAY 100 Each 2 06/06/20 23 Active Droplet Pen [place] 31G X 5 MM (Insulin Pen Needle)Indications :Type 2 diabetes mellitus without complication, with long-term current use of insulin (HCC) inject subcutaneously four times a day 1000 Each 06/07/20 23 Active OneTouch UltraSoft LancetsIndications :Type 2 diabetes mellitus without complication, unspecified whether detention insulin use (HCC) Use as directed 4 [...] of skin with itching 30 g 10/10/19 Active Torsemide 20 MG Oral Tablet (Demadex) Take 3 Tablets by mouth in the morning. 90 Tablet 10/10/19 25 Active Nicotine 21 MG/24HR Transdermal Patch 24 Hour (Nicoderm CQ) Place 1 Patch over 24 hours topically on the skin in the morning. 28 Patch 10/11/19 Active Additional Information Patient not taking.Reported on 11/04/2024 Ammonium Lactate 12 % External Cream (Lac-Hydrin) Apply topically to affected area as needed for Dry Skin. Apply to all over body after shower and before bedtime for dry skin 385 g 2 10/10/19 Active traMADol HCl 50 MG Oral Tablet [...] IZ PRN 04/17/2024 04/17/2025 Active lidocaine-epinephrine 2 %-1:626192 inj 6 mgIndications:Moderate nonproliferative diabetic retinopathy of [...] as of this encounter (statuses as of 12/09/2024) Active Problems Problem Noted Date Diagnosed Date [...] as of this encounter (statuses as of 12/09/2024) Resolved Problems Problem Noted Date Diagnosed Date [...] with ulcer 05/05/2022 06/29/2023 Diabetic retinopathy of talat t eye associated with type 2 diabetes [...] as of this encounter (statuses as of 12/09/2024) Immunizations Name Administration Dates Next Due Covid-19 Ad26, Single Dose (Alona/J&J) 021 Hepatitis B, 20+ yrs 12/08/2014,03/31/2011,02/23 Pneumococcal Conjugate Vacci ne, 20-valent ([id number]) 06/06/2023 Pneumococcal Polysaccharide PPV23 (Pneumovax) 02/10/2011 Seasonal [...] Entry Date Author No 10/03/2024 7:48 PM Lokseh Church RN documented in this encounter Plan of Treatment Upcoming Encounters Date Type Department Care Team ([facility] st Contact Info) Description 12/15/2024 4:20 PM EDT [facility] [address] [facility] [place] [address] Elie Dixon MD [address] [facility] [place] [address] 12/23/2024 10:30 AM EDT Office Visit Ophthalmology [facility] [address] [place] [address] Archana Nava MD [address] [place] [address] 12/24/2024 10:30 AM EDT [facility] [address] [facility] [place] [address] Angela Briggs CRNP [address] [facility] [place] [address] 01/07/2025 12:45 PM EDT Appointment Radiology Kymberly Pfeiffer [address] [place] [address] 01/22/2025 1:15 PM EDT Imaging Radiology [facility] [address] [place] [address] 02/09/2025 10:00 AM EDT Office Visit Pulmonary Medicine [facility], Kymberly Zhang [address] [place] [address] Braxton Elizalde MD [address] [facility] [place] [address] 03/03/2025 1:00 PM EDT Office Visit Ophthalmology [facility] [address] [place] [address] [place] Gordon MD [address] [place] [address] , Nurse Ophthalmology [facility] [address] [place] [address] Health Maintenance Due Date Last Done Comments DXA Scan 1957 Alpha-1 Antitrypsin 1975 Cologuard 2002 Colonoscopy 2002 Sigmoidoscopy 2002 Zoster Vaccines (1 of 2) 2007 Mammogram 03/02/2011 03/02/2010, 02/16/2010 DTap/Tdap Vaccines (2 - Td or Tdap) 06/07/2021 06/07/2011 Albumin/Creatinine Ratio 12/02/20212 021, 04/19/2016, 10/10/2012 Adult Wellness Visit 2023 [...] COPD 11/10/2025 11/10/2024 Lipid Panel 04/24/2029 04/24/2024, 0809/2023, 12/26/2023, Additional history exists Pap Smear Discontinued [...] this encounter Medical Devices Implanted Type Area Varnish Blender Device Identifier Shelf Expiration Date Model / Serial / Lot Cath Drainage 10fr [facility]-10-038 - [id number] Implanted:Qty : 1 on 05/07/2023 at [facility] Right: Abdomen [email or web address] [id number] 02/15/2026 [facility]-10-03 8 / / [id number] documented as of this encounter Advance Directives [...] Power of Attor cristin? No Care Teams Freight Adjuster Relationship Specialty Start Date End Date Denis Urbina MD [address] [place] [address] PCP - General Family Medicine 04/17/22 documented as of this encounter
--- OUTSIDE RECORDS SUMMARY | 2025-01-09 05:27 | External Medical Summary | Summary of Care ---
Author Name Unknown Organization [facility] Address [address] [place] [address] Phone [phone] Care Team Providers Care Inlayer Silver Name Role Phone Denis Urbina MD Primary Care Provider + [phone] Reason for Visit * Reason Comments eRx-Medication Refill Encounter Details Date Type Department Care Team (Late st Contact Info) Description 12/03/2024 Refill [facility] [address] [place] [address] Aan [place], [place]oy[place] [address] [place] [address] Episode of recurrent major depressive disorder, unspecified depression episode severity (HCC) Allergies No known active allergiesdocumented as of this encounter (statuses as of 12/04/2024) Medications Albuterol Sulfate (2.5 MG/3ML) 0.083% Inhalation [...] Each 022 Active FreeStyle Maria Luz 2 [place] Device Use as directed . 1 Each 022 Active BD Insulin Syringe U/F 30G X 1/2" 0.3 ML (Insulin Syringe-Needle U-100)Indications :Type 2 diabetes mellitus without complication (HCC),Type 2 diabetes mellitus without complication, with long-term current use of insulin (HCC) INJECT UNDER THE SKIN 4 TIMES A DAY 100 Each 2 023 Active Droplet Pen [place] 31G X 5 MM (Insulin Pen Needle)Indication s:Type 2 diabetes mellitus without complication, with long-term current use of insulin (HCC) inject subcutaneously four times a day 1000 Each 023 Active OneTouch UltraSoft LancetsIndication s:Type 2 diabetes mellitus without complication, unspecified whether software applications designer insulin use (HCC) Use as directed 4 [...] 2 Capsules before bedtime. 90 Capsule Active hydrOXYzine HCl 25 MG Oral TabletIndications :Episode of recurrent major depressive disorder, unspecified depression episode severity (HCC) Take 1 Tablet by mouth 3 times a day as needed for Anxiety. 90 Tablet Active Simvastatin 20 MG Oral Tablet (Zocor) [...] for Nausea. dissolve on tongue. 30 Tablet Active Triamcinolone Acetonide 0.1 % External Cream (Aristocort) Apply 80 g topically to affected area every 12 hours as needed for Itching. Apply to areas of skin with itching 30 g Active Torsemide 20 MG Oral Tablet (Demadex) Take 3 Tablets by mouth in the morning. 90 Tablet Active Nicotine 21 MG/24HR Transdermal Patch 24 Hour (Nicoderm CQ) Place 1 Patch over 24 hours topically on the skin in the morning. 28 Patch Active Additional Information Patient not taking.Reported on 11/04/2024 Ammonium Lactate 12 % External Cream (Lac-Hydrin) Apply topically to affected area as needed for Dry Skin. Apply to all over body after shower and before bedtime for dry skin 385 g Active traMADol HCl 50 MG Oral Tablet [...] for Cough. 30 Capsule 1 025 Active Omeprazole 20 MG Oral Capsule Delayed Release (PriLOSEC)Indicat ions:Gastroesopha geal reflux disease without esophagitis take 1 capsule by mouth every morning 90 Capsule 2 025 Active Escitalopram Oxalate 10 MG Oral Tablet (Lexapro)Indicati ons:Episode of recurrent major depressive disorder, unspecified depression episode severity (HCC) take 1 tablet by mouth every morning 90 Tablet 1 025 Active Escitalopram Oxalate 10 MG Oral Tablet (Lexapro)Indicati ons:Episode of recurrent major depressive disorder, unspecified depression episode severity (HCC) Take 1 Tablet by mouth in the morning. In the morning.. 90 Tablet 1 024 2024 Discontinued Hospital, [...] IZ PRN 04/17/2024 04/17/2025 Active lidocaine-epinephrine 2 %-1:226174 inj 6 mgIndications:Moderate nonproliferative diabetic retinopathy of [...] as of this encounter (statuses as of 12/04/2024) Active Problems Problem Noted Date Diagnosed Date [...] as of this encounter (statuses as of 12/04/2024) Resolved Problems Problem Noted Date Diagnosed Date [...] as of this encounter (statuses as of 12/04/2024) Immunizations Name Administration Dates Next Due Covid-19 Ad26, Single Dose (Alona/J&J) 021 Hepatitis B, 20+ yrs 12/08/2014,03/31/2011,02/23 Pneumococcal Conjugate Vacci ne, 20-valent ([id number]) 06/06/2023 Pneumococcal Polysaccharide PPV23 (Pneumovax) 02/10/2011 Seasonal [...] encounter Miscellaneous Notes * Telephone Encounter - Michael Ramos RPh - 12/04/2024 3:25 PM EDTSigned Prescriptions: Disp Refills Escitalopram Oxalate 10 MG Oral Tablet (Le*90 Tab*1 Sig: take 1 tablet by mouth every morningAuthorizing Provider: Brooke URBINA User: MICHAEL RAMOS documented in this encounter Plan of Treatment Upcoming Encounters Date Type Department Care Team (Late st Contact Info) Description 12/15/2024 4:20 PM EDT [facility] [address] [place] [facility] [place] [address] Elie Dixon MD [address] [place] [facility] [place] [address] 12/23/2024 10:30 AM EDT Office Visit Ophthalmology [address] [address] Archana Nava MD [address] [place] [address] 12/24/2024 10:30 AM EDT Office Visit Cardiology [facility] [place] [address] [place] [address] Angela Briggs CRNP [address] [place] [facility] [place] [address] 01/07/2025 12:45 PM EDT [facility]ointment [facility] [address] [place] [address] 01/22/2025 1:15 PM EDT Imaging Radiology [address] [address] 02/09/2025 10:00 AM EDT Office Visit Pulmonary [facility] [address] [place] [address] Braxton Elizalde MD [address] [place] [address] 03/03/2025 1:00 PM EDT Office Visit Ophthalmology [address] [address] [place] Gordon MD [address] [place] [address] [place] [address] , Nurse Ophthalmology [address] [address] Health Maintenance Due Date Last Done Comments [...] this encounter Medical Devices Implanted Type Area Animal Husbandman Device Identifier Shelf Expiration Date Model / Serial / Lot Cath Drainage 10fr [facility]-10-038 - [id number] Implanted:Qty : 1 on 05/07/2023 at [facility] Right: Abdomen [employer] [id number] 02/15/2026 [facility]-10-03 8 / / [id number] documented as of this encounter Visit Diagnoses Diagnosis Episode of recurrent major depressive disorder, unspecified depression episode severity (HCC) documented in this encounter Advance Directives * [...] Power of Attor cristin? No Care Teams Inlayer Silver Relationship Specialty Start Date End Date Denis Urbina MD [address] [place] [address] PCP - General Family Medicine 04/17/22 documented as of this encounter
--- OUTSIDE RECORDS SUMMARY | 2025-01-09 05:27 | External Medical Summary | Summary of Care ---
Author Name Unknown Organization [facility] Address [address] [place] [address] Phone [phone] Care Team Providers Care Supply Service Worker Name Role Phone Denis Urbina MD Primary Care Provider + [phone] Reason for Visit * Reason Comments Sore Foot Henry L>R Encounter Details Date Type Department Care Team (Latest Contact Info) Description 12/14/2024 12:30 PM EDT [facility] Visit [facility] [address] [place] [address] Sujey Art PA-C [address] [place], [place] [id number] Type 2 diabetes mellitus with diabetic polyneuropathy, with long-term current use of insulin (HCC)*; Cellulitis, unspecified cellulitis site; Stasis dermatitis of both legs Allergies No known active allergiesdocumented as of this encounter (statuses as of 12/14/2024) Medications Albuterol Sulfate (2.5 MG/3ML) 0.083% Inhalation [...] 1 Each Active FreeStyle Maria Luz 2 Philmont Device Use as directed . 1 Each Active BD Insulin Syringe U/F 30G X 1/2" 0.3 ML (Insulin Syringe-Needle U-100)Indications :Type 2 diabetes mellitus without complication (HCC),Type 2 diabetes mellitus without complication, with long-term current use of insulin (HCC) INJECT UNDER THE SKIN 4 TIMES A DAY 100 Each 2 023 Active Droplet Pen [place] 31G X 5 MM (Insulin Pen Needle)Indication s:Type 2 diabetes mellitus without complication, with long-term current use of insulin (HCC) inject subcutaneously four times a day 1000 Each 023 Active OneTouch UltraSoft LancetsIndication s:Type 2 diabetes mellitus without complication, unspecified whether fdc insulin use (HCC) Use as directed 4 [...] day as needed for Anxiety. 90 Tablet 024 Active Simvastatin 20 MG Oral Tablet (Zocor) [...] for Nausea. dissolve on tongue. 30 Tablet 024 Active Triamcinolone Acetonide 0.1 % External Cream (Aristocort) Apply 80 g topically to affected area every 12 hours as needed for Itching. Apply to areas of skin with itching 30 g 025 Active Torsemide 20 MG Oral Tablet (Demadex) Take 3 Tablets by mouth in the morning. 90 Tablet Active Ammonium Lactate 12 % External Cream [...] Severe. Ongoing therapy 45 Tablet Active Flutter DeviceIndications :Chronic respiratory failure with hypoxia and hypercapnia (HCC) As directed. 1 Each Active guaiFENesin ER 600 MG Oral Tablet Extended Release 12 Hour (Humibid LA) Take 1 Tablet by mouth 2 times a day as needed for Cough or Congestion. 60 Tablet 2 Active Benzonatate 100 MG Oral CapsuleIndication s:Chronic respiratory failure with hypoxia and hypercapnia (HCC) Take 1 Capsule by mouth 2 times a day as needed for Cough. 30 Capsule 1 Active Escitalopram Oxalate 10 MG Oral Tablet (Lexapro)Indicati ons:Episode of recurrent major depressive disorder, unspecified depression episode severity (HCC) take 1 tablet by mouth every morning 90 Tablet 1 Active Doxycycline Hyclate 100 MG Oral Capsule Take 1 Capsule by mouth in the morning and 1 Capsule before bedtime. Do all this for 10 days. Until gone.. 20 Capsule 025 2024 Active Mupirocin 2 % External Ointment (Bactroban) Apply topically to affected area 2 times a day. To affected area (R knee abrasions) for 7-10 days. 22 g Active Nicotine 21 MG/24HR Transdermal Patch 24 Hour (Nicoderm CQ) Place 1 Patch over 24 hours topically on the skin in the morning. 28 Patch 025 2024 Discontinued Omeprazole 20 MG Oral Capsule Delayed Release (PriLOSEC)Indicat ions:Gastroesopha geal reflux disease without esophagitis take 1 capsule by mouth every morning 90 Capsule 2 025 2024 Discontinued Hospital, Clinic, or Other [...] IZ PRN 04/17/2024 04/17/2025 Active lidocaine-epinephrine 2 %-1:[id number] inj 6 mgIndications:Moderate nonproliferative diabetic retinopathy of [...] as of this encounter (statuses as of 12/14/2024) Active Problems Problem Noted Date Diagnosed Date [...] as of this encounter (statuses as of 12/14/2024) Resolved Problems Problem Noted Date Diagnosed Date [...] as of this encounter (statuses as of 12/14/2024) Immunizations Name Administration Dates Next Due Covid-19 Ad26, Single Dose (Alona/J&J) 021 Hepatitis B, 20+ yrs 12/08/2014,03/31/2011,02/23 Pneumococcal Conjugate Vacci ne, 20-valent (Nokfeve88) 06/06/2023 Pneumococcal Polysaccharide PPV23 (Pneumovax) 02/10/2011 Seasonal Influenza, Quadriva lent Hd (Fluzone Hd) 12/17/2023() TDAP, Age 7 and older, IM (Adacel) 06/07/2011 Tetanus Toxid Adsorbed 09/14/2007 documented as of this encounter Social History Tobacco Use Types Packs/Day Years Used Date Smoking Tobacco: Every Day Cigarettes 0.2 3.1 Started: 03/08/2019; Last attempted to quit: 03/08/2022 Smokeless Tobacco: Never Tobacco Cessation:Ready to Q uit: Not Asked; Counseling Given: Not Answered Comments:smoked in college also [...] 01/22/2024 Does the household have a re lar [...] Sign Reading Time Taken Comments Blood Pressure 148/77 12/14/2024 12:31 PM EDT Pulse 78 12/14/2024 12:31 PM EDT Temperature 36.1 °C (97 °F) 12/14/2024 12: 31 PM EDT Respiratory Rate 20 12/14/2024 12:3 1 PM EDT Oxygen Saturation 98% 12/14/2024 12: 34 PM EDT 3L/min oxygen via nasal canula Inhaled Oxygen Concentration - - Weight - - Height - - Body Mass Index - - documented in this encounter Functional Status * [...] documented in this encounter Progress Notes * Sujey Art PA-C - 12/14/2024 12:36 PM EDT Images from the original note were not included. Subjective Meera Mcgraw is a 69 year old female that presents for Sore Foot (Henry L>R) 69 yo F with significant PMH of chronic respiratory failure with hypoxia and hypercapnia (baseline CO2 62) on home O2 2-4 L NC, RLD, current smoker, PAOLA + CPAP, HFpEF, DM2 with polyneuropathy, HTN, DLD, CKD stage 3b presents to clinic accompanied by adult son for evaluation of B/L feet pain (L >R). Patient reports she often has pain in her legs but foot pain acutely worsened 2 days ago. She re ports pain is worse in the forefeet, she expresses concern for possible Charcot foot. She reports chronic skin changes of the B/L lower legs, she has history of cellulitis and venous stasis ulcers previously followed by wound care team. Patient and son report Meera's ulcers have healed, but since developing them she has had severely dry/cracked skin. Patient reports pain the past 2 days havelimited her ambulation and activity. Son admits patient has been mostly sedentary x 3 weeks. Patient spends most of her time seated in wheel chair, admits she does not elevate her legs when she is atrest. She reports new abrasion to the back of her R knee from her wheelchair. Patient also reports her blood glucose levels have been higher than normal this week. She typicallyis ~ 180, the past few days she averages > 250. She reports her appetite is slightly decreased, UOP is normal. Denies any fever, chills, headache, body aches, chest pain, worsening SOB, labored breathing, AMS, confusion, N/V/D, LOC or syncope, generalized weakness, diaphoresis, heart palpitations. She can not recall any fall/injury/trauma. Patient Active Problem List Diagnosis Date Noted Excoriation [T14.8XXA] 10/10/2024 Hyperkalemia [E87.5] 10/04/2024 Cellulitis [L03.90] 10/04/2024 Acute on chronic respiratory failure with hypercapnia (HCC) [J96.22] 10/04/2024 Venous stasis ulcers of both lower extremities (HCC) [I83.019, I83.029, L97.919, L97.929] 09/23/2024 Chronic kidney disease, stage 4 (severe) (HCC) [N18.4] 06/09/2024 Acute renal failure superimposed on stage 3b chronic kidney disease (HCC) [N17.9, N18.32] 06/02/2024 Per CKD protocol Onychomycosis of nail of digit of hand [B35.1] 05/06/2024 COPD, group C, by GOLD 2017 classification (HCC) [J44.9] 2024 Per COPD GOLD Classification Chronic kidney disease with symptom management only, stage 3 (moderate) (HCC) [N18.30] 01/16/2024 Food insecurity [Z59.41] 12/31/2023 Per [facility] Protocol Acute respiratory failure with hypercapnia (HCC) [J96.02] 12/07/2023 Heart failure, systolic and diastolic, acute on chronic (HCC) [I50.43] 12/06/2023 Chronic respiratory failure with hypoxia and hypercapnia (HCC) [J96.11, J96.12] 10/28/2023 Moderate nonproliferative diabetic retinopathy of both eyes with macular edema associated with type2 diabetes mellitus (HCC) [E11.3313] 10/28/2023 Choledocholithiasis [K80.50] 05/11/2023 Obesity hypoventilation syndrome (HCC) [E66.2] 06/28/2022 Lesion of bone of cervical spine [M89.9] 06/28/2022 BMI 40.0-44.9, adult (HCC) [Z68.41] 06/28/2022 Anxiety state [F41.1] 06/28/2022 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 Rosacea [L71.9] 04/20/2008 ARTHRITIS -HANDS [M19.039] 07/21/2007 Major depressive disorder [F32.9] 07/15/2007 ICD-10 update of inactive term Restless leg syndrome [G25.81] SLEEP APNEA, UNSPECIFIED [G47.30] History of colonic polyps [Z86.0100] ICD-10 update of inactive term PPD positive [R76.11] Past Surgical History: Procedure Laterality Date AFLIBERCEPT IO SOLN, PER 1MG, INJ Bilateral 04/17/2024 Eylea # 1 OU / Dr. Moss AFLIBERCEPT IO SOLN, PER 1MG, INJ Bilateral 05/20/2024 Eylea #2 OU, Dr. Gordon AFLIBERCEPT IO SOLN, PER 1MG, INJ Bilateral 11/04/2024 Eylea # 4 OU, Dr. Gordon BEVACIZUMAB INJECTION Right 01/25/2017 Avastin # 1 OD / Dr. Brown / New Consent BEVACIZUMAB INJECTION Right 07/10/2023 Avastin # 2 OD / Dr. Moss *New Consnt* BEVACIZUMAB INJECTION Left 07/10/2023 Avastin # 1 OS / Dr. Moss *New Consent* CARPAL TUNNEL SYN 1995 on right ERCP, DIAGNOSTIC, SPECIMEN COLLECTION 05/08/2023 ENDOSCOPIC RETROGRADE CHOLANGIOPANCREATOGRAPHY (ERCP) DIAGNOSTIC performed by Scotty Pearson DO at ENDOSCOPY [facility] FLUORESCEIN ANGIOGRAPHY MULTIFRAME 01/12/2017 OD > OS / Dr. Brown FX/DIS,RADIAL,OPN,INTRAARTIC,INT FIX,[address] Savage INJECTION OF EYE DRUG Bilateral 07/15/2024 Eylea OU # 3 Dr Gordon IR ASPIRATION ABSCESS/COLLECTION 05/07/2023 IR PROCEDURE NOT PERFORMED DOCUMENTATION ONLY 05/07/2023 LAPAROSCOPY;APPENDECTOMY N/A 01/28/2017 LAPAROSCOPIC APPENDECTOMY performed by West Newell MD at OR [facility] REMOVAL OF COLON 2000 left hemicolectomy, polyps REMOVE TONSILS & ADENOIDS, UNDER 12 Escitalopram Oxalate 10 MG Oral Tablet (Lexapro) Benzonatate 100 MG Oral Capsule Flutter Device guaiFENesin ER 600 MG Oral Tablet Extended Release 12 Hour (Humibid LA) Ammonium Lactate 12 % External Cream (Lac-Hydrin) Torsemide 20 MG Oral Tablet (Demadex) traMADol HCl 50 MG Oral Tablet (Ultram) Triamcinolone Acetonide 0.1 % External Cream (Aristocort) Ondansetron 4 MG Oral Tablet Disintegrating (Zofran) Bromfenac Sodium (Once-Daily) 0.09 % Ophthalmic Solution Carvedilol 3.125 MG Oral Tablet (Coreg) Cyanocobalamin 1000 MCG Sublingual Tablet Sublingual Fluticasone Propionate 50 MCG/ACT Nasal Suspension (Flonase) Gabapentin 100 MG Oral Capsule (Neurontin) hydrOXYzine HCl 25 MG Oral Tablet Simvastatin 20 MG Oral Tablet (Zocor) Insulin Glargine Solostar 100 UNIT/ML Subcutaneous Solution Pen-injector (Basaglar KwikPen) NovoLOG FlexPen 100 UNIT/ML Subcutaneous Solution Pen-injector (insulin aspart) RA Melatonin 1 MG Sublingual Tablet Sublingual (Melatonin) ReliOn Premier Classic Device ReliOn Premier Test In Vitro Strip (Glucose Blood) OneTouch UltraSoft Lancets Droplet Pen Alb[place] 31G X 5 MM (Insulin Pen Needle) BD Insulin Syringe U/F 30G X 1/2" 0.3 ML (Insulin Syringe-Needle U-100) FreeStyle Maria Luz 2 Philmont Device FreeStyle Maria Luz 2 Sensor CPAP Acetaminophen 325 MG Oral Tablet (Tylenol) Albuterol Sulfate (2.5 MG/3ML) 0.083% Inhalation Nebulization Solution (Proventil) albuterol-ipratropium (Duoneb) inhalation solution 3 mL Aflibercept (Eylea) intraviteal prefilled syringe 2 mg Aflibercept (Eylea) intraviteal prefilled syringe 2 mg lidocaine-epinephrine 2 %-1:115092 inj 6 mg Objective Filed Vitals: 12/14/24 1231 12/14/24 1234 BP: 148/77 Pulse: 78 Resp: 20 Temp: 36.1 °C (97 °F) TempSrc: Tympanic SpO2: 78% 98% Physical Exam Vitals and nursing note reviewed. Constitutional: General: She is awake. She is not in acute distress. Appearance: She is obese. She is not ill-appearing, toxic-appearing or diaphoretic. Interventions: Nasal cannula in place. Comments: Chronically ill appearing Eyes: General: No scleral icterus. Right eye: No discharge. Left eye: No discharge. Conjunctiva/sclera: Conjunctivae normal. Cardiovascular: Rate and Rhythm: Normal rate. Pulses: Dorsalis pedis pulses are 1+ on the right side and 1+ on the left side. Posterior tibial pulses are 1+ on the right side and 1+ on the left side. Pulmonary: Effort: Pulmonary effort is normal. No respiratory distress. Musculoskeletal: Right lower leg: Tenderness present. No deformity. 1+ Pitting Edema present. Left lower leg: Swelling and tenderness present. No deformity. No edema. Right foot: Normal range of motion. Tenderness present. No swelling, Charcot foot or foot drop. Normal pulse. Left foot: Normal range of motion. Tenderness present. No swelling, Charcot foot or foot drop. Normal pulse. Legs: Comments: B/L LE and feet are cellulitic and warm to the touch. (+) TTP. Chronic hyperpigmentation and eczematous skin changes c/w venous stasis dermatitis. ~ 1 cm intact pustule notes to the anterior L leg Feet: Right foot: Skin integrity: Erythema, warmth, callus, dry skin and fissure present. No ulcer or blister. Toenail Condition: Right toenails are abnormally thick and long. Fungal disease present. Left foot: Skin integrity: Erythema, warmth, callus, dry skin and fissure present. No ulcer or blister. Toenail Condition: Left toenails are abnormally thick and long. Fungal disease present. Comments: Xerosis cutis of the B/L feet Skin: General: Skin is warm. Capillary Refill: Capillary refill takes 2 to 3 seconds. Comments: See pictures and MSK exam Neurological: Mental Status: She is alert and easily aroused. Psychiatric: Behavior: Behavior is cooperative. Assessment and Plan Type 2 diabetes mellitus with diabetic polyneuropathy, with long-term current use of insulin ([facility]) - GLUCOSE METER, POINT OF CARE: 249 - I suspect BGL is elevated due to active infection. Patient to correct with insulin when she returns home Cellulitis, unspecified cellulitis site - XR TIB/FIB 2 VIEWS - XR [...] of worsening infection and would warrant re-evaluation Stasis dermatitis of both legs - Recommend elevation and compression of the B/L LE - Patient is to keep her legs well moisturized and clean to prevent future breaks in the skin /potential entry points of infection Wrap-Up If symptoms persist or worsen despite above intervention please follow up with PCP or return for re-evaluation. If you develop any red flag symptoms including but not limited to: chest pain, SOB, labored breathing, LOC, syncope, fever not responding to antipyretics, worsening pain or inability to tolerate PO intake please report to ER for further evaluation and treatment. I spent a total of Greater than 55 mins (exact time 60 mins) on the date of service in preparation,delivery, and documentation of the care provided to Meera Mcgraw excluding any time spent in the performance of separately billed services. documented in this encounter Nursing Notes * Gian Ruiz LPN - 12/14/2024 12:29 PM EDT Meera Mcgraw 1955 verbalized for verification. Patient is accompanied by Son Anmol for today's visit. Meera Mcgraw is a 69 year old female who presents today for Chief Complaint Patient presents with Sore Foot Henry L>R . Symptoms began: 12/12/24. documented in this encounter Miscellaneous Notes * Assessment & Plan Note - Sujey Art PA-C - 12/14/2024 1:58 PM EDT Associated Problem(s): Type 2 diabetes mellitus with diabetic polyneuropathy, with long-term current use of insulin (HCC) - GLUCOSE METER, POINT OF CARE: 249 - I suspect BGL is elevated due to active infection. Patient to correct with insulin when she returns home * Assessment & Plan Note - Sujey Art PA-C - 12/14/2024 1:58 PM EDT Associated Problem(s): Cellulitis - XR TIB/FIB 2 VIEWS - XR [...] of worsening infection and would warrant re-evaluation documented in this encounter Plan of Treatment Upcoming Encounters Date Type Department Care Team (Late st Contact Info) Description 12/15/2024 4:20 PM EDT Office Visit Nephrology [facility] [address] [facility] [place] [phone] Elie Dixon MD [address] [facility] [place] [address] 12/23/2024 10:30 AM EDT Office Visit Ophthalmology [facility] [address] [place] [address] [place] [address] [place] [address] 12/24/2024 10:30 AM EDT [facility] [address] [facility] [place] [address] Angela Briggs CRNP [address] [facility] [place] [address] 01/07/2025 12:45 PM EDT Appointment Radiology [facility] [place] [address] [facility] [place] [phone] 01/22/2025 1:15 PM EDT Imaging Radiology [facility] [address] [place] [address] 02/09/2025 10:00 AM EDT Office Visit Pulmonary Medicine [facility] [place] Vicente [address] [facility] [place] [address] Braxton Elizalde MD [address] [facility] [address] 03/03/2025 1:00 PM EDT Office Visit Ophthalmology [facility] [address] [place] [address] [place] Gordon MD [address] [place] [address] , [facility] [address] [address] Pending Results Name Type Priority Associated Diagnoses Date /Time XR TIB/FIB 2 VIEWS Medical Imaging STAT Cellulitis, unspecified cellulitis site 12/14/2024 1:37 PM EDT XR FOOT 3 OR MORE VIEWS Medical Imaging STAT Cellulitis, unspecified cellulitis site 12/14/2024 1:37 PM EDT Health Maintenance Due Date Last Done Comments [...] this encounter Medical Devices Implanted Type Area Forestry Biology Specialist Device Identifier Shelf Expiration Date Model / Serial / Lot Cath Drainage 10fr [facility]-10-038 - [id number] Implanted:Qty : 1 on 05/07/2023 at [facility] Right: Abdomen [employer] [id number] 02/15/2026 [facility]-10-03 8 / / [id number] documented as of this encounter Procedures Procedure Name Priority Date/Time Associated Diagnosis Comments XR FOOT 3 OR MORE VIEWS STAT 12/14/2024 1:37 PM EDT Cellulitis, unspecified cellulitis site Procedure Note - Serjio Naqvi MD / Edward Helms DO - 12/14/2024 1:37 PM EDTThis note is in progress. EXAM XR TIB/FIB 2 VIEWS; XR FOOT 3 OR MORE VIEWS - 12/14/2024 1:37 pm HISTORY B/L cellulitis; B/L foot pain, cellulitis COMPARISON Left foot radiographs 03/01/2011. TECHNIQUE Frontal and lateral radiographs of the tibiae/fibulae. Frontal, oblique, and lateral views of the feet. FINDINGS RIGHT TIBIA/FIBULA: No acute fracture. Dystrophic soft tissue calcifications. LEFT TIBIA/FIBULA: No acute fracture. Dystrophic soft tissue calcifications and vascular calcifications. RIGHT FOOT: No acute fracture. Type 2 os navicular. Mild multifocal osteoarthritic changes. Small plantar calcaneal spur. Small Achilles enthesophyte. LEFT FOOT: No acute fracture. Type 2 os navicular. Well-corticated mineralizationat the dorsal aspect of the tarsometatarsal joints is likely sequelae ofremote prior injury. Mild multifocal osteoarthritic changes. Small plantar calcaneal spur. Small Achilles enthesophyte. IMPRESSION IMPRESSION This impression is a preliminary interpretation by the resident and issubject to changes following review by an attending radiologist. Be sureto review a final report signed by a staff radiologist for anydiscrepancies with this preliminary interpretation. TIBIAE/FIBULAE: No acute osseous abnormality. FEET: No acute osseous abnormality. XR TIB/FIB 2 VIEWS STAT 12/14/2024 1:37 PM EDT Cellulitis, unspecified cellulitis site Procedure Note - Serjio Naqvi MD / Edward Helms DO - 12/14/2024 1:37 PM EDTThis note is in progress. EXAM XR TIB/FIB 2 VIEWS; XR FOOT 3 OR MORE VIEWS - 12/14/2024 1:37 pm HISTORY B/L cellulitis; B/L foot pain, cellulitis COMPARISON Left foot radiographs 03/01/2011. TECHNIQUE Frontal and lateral radiographs of the tibiae/fibulae. Frontal, oblique, and lateral views of the feet. FINDINGS RIGHT TIBIA/FIBULA: No acute fracture. Dystrophic soft tissue calcifications. LEFT TIBIA/FIBULA: No acute fracture. Dystrophic soft tissue calcifications and vascular calcifications. RIGHT FOOT: No acute fracture. Type 2 os navicular. Mild multifocal osteoarthritic changes. Small plantar calcaneal spur. Small Achilles enthesophyte. LEFT FOOT: No acute fracture. Type 2 os navicular. Well-corticated mineralizationat the dorsal aspect of the tarsometatarsal joints is likely sequelae ofremote prior injury. Mild multifocal osteoarthritic changes. Small plantar calcaneal spur. Small Achilles enthesophyte. IMPRESSION IMPRESSION This impression is a preliminary interpretation by the resident and issubject to changes following review by an attending radiologist. Be sureto review a final report signed by a staff radiologist for anydiscrepancies with this preliminary interpretation. TIBIAE/FIBULAE: No acute osseous abnormality. FEET: No acute osseous abnormality. GLUCOSE METER, POINT OF CARE (ENTER/EDIT) Routine 12/14/2024 12:42 PM EDT Type 2 diabetes mellitus with diabetic polyneuropathy, with long-term current use of insulin ([facility]) documented in this encounter Results * (ABNORMAL) GLUCOSE METER, POINT OF CARE (ENTER/EDIT) (12/14/2024 12:42 PM EDT) [facility] Glucose - POCT 249(A) 70 - 120 mg/dL Blood 12/14/2024 12:4 2 PM EDT Sujey Art PA-C LAB POINT OF CARE TEST ENTE R/EDIT ORDERABLES Final Result documented in this encounter Visit Diagnoses Diagnosis Type 2 diabetes mellitus with diabetic polyneuropathy, with long-term current use of insulin ([facility])- Primary Cellulitis, unspecified cellulitis site Stasis dermatitis [...] Power of Attor cristin? No Care Teams Supply Service Worker Relationship Specialty Start Date End Date Denis Urbina MD [address] [place] [address] PCP - General Family Medicine 04/17/22 documented as of this encounter
--- OUTSIDE RECORDS SUMMARY | 2025-01-09 05:27 | External Medical Summary | Summary of Care ---
Author Name Unknown Organization [facility] Address [address] [place] [address] Phone [phone] Care Team Providers Care Assistant Spa Manager Name Role Phone Denis Urbina MD Primary Care Provider + [phone] Reason for Visit * Reason Comments Follow Up Encounter Details Date Type Department Care Team (Latest Contact Info) Description 11/04/2024 9:00 AM EST Office Visit Ophthalmology [facility] [address] [place] [address] Washington Gordon MD [address] [place] [address] Moderate nonproliferative diabetic retinopathy of both eyes with macular edema associated with type 2 diabetes mellitus (HCC)* Allergies No known active allergiesdocumented as of this encounter (statuses as of 11/11/2024) Medications Albuterol Sulfate (2.5 MG/3ML) 0.083% Inhalation [...] 06/27/20 22 Active FreeStyle Maria Luz 2 [place] Device Use as directed . 1 Each 06/27/20 22 Active BD Insulin Syringe U/F 30G X 1/2" 0.3 ML (Insulin Syringe-Needle U-100)Indications: Type 2 diabetes mellitus without complication (HCC),Type 2 diabetes mellitus without complication, with long-term current use of insulin (HCC) INJECT UNDER THE SKIN 4 TIMES A DAY 100 Each 2 06/06/20 23 Active Droplet Pen [place] 31G X 5 MM (Insulin Pen Needle)Indications [...] meals. 15 mL 3 01/16/20 24 Active Omeprazole 20 MG Oral Capsule Delayed Release (PriLOSEC)Indicati ons:Gastroesophage al reflux disease without esophagitis take 1 capsule by mouth every morning 90 Capsule 1 06/01/20 24 Active Bromfenac Sodium (Once-Daily) 0.09 % Ophthalmic Solution Instill 1 Drop into eye daily at noon. 2 mL 06/04/20 24 Active Additional Information Patient not taking.Informant: Patient, Pharmacy, Reported on 11/04/2024 Cyanocobalamin 1000 MCG Sublingual Tablet SublingualIndicati ons:B12 deficiency [address] 1,000MCG UNDER THE TONGUE DAILY 90 Tablet 06/04/20 24 Active Escitalopram Oxalate 10 MG Oral Tablet (Lexapro)Indicatio ns:Episode of recurrent major depressive disorder, unspecified depression episode severity (HCC) Take 1 Tablet by mouth in the morning. In the morning.. 90 Tablet 06/04/20 24 Active Fluticasone Propionate [...] Severe. Ongoing therapy 45 Tablet 10/10/19 Active Hospital, Clinic, or Other Facility Administered [...] IZ PRN 04/17/2024 04/17/2025 Active lidocaine-epinephrine 2 %-1:[id number] inj 6 mgIndications:Moderate nonproliferative diabetic retinopathy of [...] as of this encounter (statuses as of 11/11/2024) Active Problems Problem Noted Date Diagnosed Date [...] as of this encounter (statuses as of 11/11/2024) Resolved Problems Problem Noted Date Diagnosed Date [...] as of this encounter (statuses as of 11/11/2024) Immunizations Name Administration Dates Next Due Covid-19 Ad26, Single Dose ([place]/J&J) 021 Hepatitis B, 20+ yrs 12/08/2014,03/31/2011,02/23 Pneumococcal Conjugate Vacci ne, 20-valent ([id number]) 06/06/2023 Pneumococcal Polysaccharide PPV23 (Pneumovax) 02/10/2011 Seasonal [...] Lokesh Church RN documented in this encounter Patient Instructions * Patient Instructions* Lacho Stern RN - 11/04/2024 10:[address] [place] [address] Weekends, holidays or after 5PM ask for retina on-call doctor Instructions After an Eye Injection What to expect: IT is NORMAL to have the following after an injection: 1. Watering, eye burning, itching, a foreign body sensation and mild eye pain. If these symptoms persist longer than 3 days call the clinic. 2. Redness and blood on the sclera (white part of the eye). CALL or return to the clinic IMMEDIATELY if you develop: 1. Increasing eye pain or severe pain 2. Worsening vision or vision loss 3. Increase in floaters or flashes of light 4. Call if you have a yellow or white discharge documented in this encounter Progress Notes * Washington Gordon MD - 11/04/2024 9:55 AM EST [facility] Visit Nursing Notes: Nicky Priest TECH 11/04/24 0943 Signed Per the [place] Dept of Health: Flu and pneumonia vaccine discussed with patient. Influenza and Pneumonia vaccine not administered. ASSESSMENT/PLAN Retinal edema (Primary) Moderate nonproliferative diabetic retinopathy of both eyes with macular edema associated with type2 diabetes mellitus (HCC) Combined forms of age-related cataract of both eyes History of 6th nerve palsy, right Follow Up: Return for 10-12 wks, DFE, OCT OU. | For: 10-12 wks, DFE, OCT OU Diagnoses Codes Comments Moderate nonproliferative diabetic retinopathy of both eyes with macular edema associated with type2 diabetes mellitus (HCC) - Primary E11.3313 Meera Mcgraw is a 69 year old female who presents for a follow up appointment. Last Visit: 10/28/2024 She currently states she feels like her vision has gotten worse in both eyes. She states her right eye seems to be more worse then the left eye. No other complaints. Are you diabetic? YES. Do you check your sugar daily? YES. Fasting BS this mornin mg/dl. LastHemoglobin A1C: Lab Results Component Value Date/Time HGBA1C 8.2 (H) 10/03/2024 04:48 AM HGBA1C 7.4 (H) 05/01/2024 03:19 AM HGBA1C 7.7 (H) 04/24/2024 10:28 AM HGBA1C 6.4 04/19/2016 10:05 AM HGBA1C 9.3 (H) 12/27/2015 07:48 AM HGBA1C 11.2 (H) 11/06/2014 01:17 PM Do you know your last Hemoglobin AIC level? YES. 8.2 Current Ophthalmic Medications: None [facility], IOP, Confrontational simms, Motility, pupil check and dilation can be found in ophth exam. Serjio Quinteros, TECH 11/04/24 0955 Signed OCT image(s) of both eyes acquired and filed/scanned into chart. 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 Tobacco Use Smoking status: Former Current packs/day: 0.00 Average packs/day: 0.1 packs/day for 3.0 years (0.4 ttl pk-yrs) Types: Cigarettes Start date: 03/08/2019 Quit date: 03/08/2022 Years since quittin.6 Smokeless tobacco: Never Tobacco comments: smoked in college also Vaping Use Vaping status: Never Used Substance and Sexual Activity Alcohol use: Yes Comment: rarely Drug use: No Sexual activity: Yes Partners: Male Other Topics Concern Not on file Social History Narrative Not on file Social Needs Financial Resource Strain: High Risk (01/22/2024) Financial Resource Strain Do you have any trouble paying for your medications, or do you think you might in the future? (Adult - for ages 18 years and over): Yes Does your family have trouble paying for medicine? (Household - for ages 0-17 years): Not on file Food Insecurity: Food Insecurity Present (10/03/2024) Food Insecurity Worried About Running Out of Food in the Last Year: Sometimes true Ran Out of Food in the Last Year: Sometimes true Do you need food for this week? (Adult - for ages 18 years and over): No Transportation Needs: No Transportation Needs (10/03/2024) Transportation Needs Do you have trouble getting a ride to medical visits or work? (Adult - for ages 18 years and over):Never True Does your family have a hard time getting a ride to doctors’ visits? (Household - for ages 0-17 years): Not on file Has lack of transportation kept you from medical appointments, meetings, work, or from getting things needed for daily living? Check all that apply. (Adult - for ages 18 years and over): No Do you (or your family) have trouble finding or paying for a ride (transportation)? (Household - for ages 0-17 years): Not on file Social Connections: Socially Integrated (01/22/2024) Social Connections How often do you feel lonely or isolated from those around you? (Adult - for ages 18 years and over): Never Housing Stability: High Risk (10/03/2024) Housing Stability Do you currently live in a half-way or have no steady place to sleep at night? (Adult - for ages 18 years and over): No Do you think you are at risk of becoming homeless? (Adult - for ages 18 years and over): Yes Does your family worry about paying for your home or becoming homeless? (Household - for ages 0-17 years): Not on file Are you homeless or worried that you might be in the future? (Adult - for ages 18 years and over): No Are you (or your family) homeless or worried that you might be in the future? (Household - for ages0-17 years): Not on file Past Medical History: Diagnosis Date Acute appendicitis 01/29/2017 Acute respiratory failure with hypoxia and hypercapnia (HCC) 06/19/2022 Chronic venous hypertension with ulcer ([facility]) 05/05/2022 Controlled substance agreement signed 01/28/2017 COPD exacerbation ([facility]) 12/26/2015 COPD, severity to be determined ([facility]) 12/26/2015 Diabetic retinopathy of right eye associated with type 2 diabetes mellitus ([facility]) 06/08/2021 Dyslipidemia 12/26/2015 Dyslipidemia, goal to be determined Gastroesophageal reflux disease without esophagitis 05/04/2023 Heart failure, diastolic, with acute decompensation ([facility]) 06/19/2022 Heart failure, diastolic, with acute decompensation ([facility]) 2023-10-28 Adding I50.33-Heart failure, diastolic, with acute decompensation ([facility]) Dx to History HTN, goal below 140/90 11/07/2014 HTN, goal to be determined Hypoxia 12/26/2015 Influenza A 12/29/2015 Kidney disease, chronic, stage III (GFR 30-59 ml/min) ([facility]) 06/28/2022 Major depressive disorder 07/15/2007 ICD-10 update of inactive term Obesity hypoventilation syndrome ([facility]) 06/28/2022 Obesity, BMI not known Personal history of colonic polyps PPD positive Restless leg syndrome Right abducens nerve palsy 06/19/2022 Sleep apnea SOB (shortness of breath) 12/26/2015 T2DM (type 2 diabetes mellitus) ([facility]) dx age 55 Type 2 diabetes mellitus with diabetic polyneuropathy, with long-term current use of insulin ([facility]) 12/10/2019 Past Surgical History: Procedure Laterality Date AFLIBERCEPT IO SOLN, PER 1MG, INJ Bilateral 04/17/2024 Eylea # 1 OU / Dr. Moss AFLIBERCEPT IO SOLN, PER 1MG, INJ Bilateral 05/20/2024 Eylea #2 OU, Dr. Gordon BEVACIZUMAB INJECTION Right 01/25/2017 Avastin # 1 OD / Dr. Brwon / New Consent BEVACIZUMAB INJECTION Right 07/10/2023 Avastin # 2 OD / Dr. Moss *New Consnt* BEVACIZUMAB INJECTION Left 07/10/2023 Avastin # 1 OS / Dr. Moss *New Consent* CARPAL TUNNEL SYN 1995 on right ERCP, DIAGNOSTIC, SPECIMEN COLLECTION 05/08/2023 ENDOSCOPIC RETROGRADE CHOLANGIOPANCREATOGRAPHY (ERCP) DIAGNOSTIC performed by Scotty Pearson DO at ENDOSCOPY [facility] FLUORESCEIN ANGIOGRAPHY MULTIFRAME 01/12/2017 OD > OS / Dr. Brown FX/DIS,RADIAL,OPN,INTRAARTIC,INT FIX,[address] Savage INJECTION OF EYE DRUG Bilateral 07/15/2024 Eylea OU # 3 Dr Gordon IR ASPIRATION ABSCESS/COLLECTION 05/07/2023 IR PROCEDURE NOT PERFORMED DOCUMENTATION ONLY 05/07/2023 LAPAROSCOPY;APPENDECTOMY N/A 01/28/2017 LAPAROSCOPIC APPENDECTOMY performed by [place] Newell MD at [facility] PARTIAL REMOVAL OF COLON 2000 left hemicolectomy, polyps REMOVE TONSILS & ADENOIDS, UNDER 12 Family History Problem Relation Name Age of Onset Cancer Mother breast Obesity Father Obesity Brother sleep apnea Patient has no known allergies. Current Outpatient Medications Medication Sig Dispense Refill Albuterol Sulfate (2.5 MG/3ML) 0.083% Inhalation Nebulization Solution (Proventil) One vial in nebulizer every 4 hours as needed for wheezing 3 mL 1 Acetaminophen 325 MG Oral Tablet (Tylenol) Take 1 Tablet by mouth every 6 hours as needed for Pain,Mild. CPAP every night at bedtime . FreeStyle Maria Luz 2 Sensor Use as directed . 1 Each 0 FreeStyle Maria Luz 2 [place] Device Use as directed . 1 Each 0 BD Insulin Syringe U/F 30G X 1/2" 0.3 ML (Insulin Syringe-Needle U-100) INJECT UNDER THE SKIN 4 TIMES A DAY 100 Each 2 Droplet Pen [place] 31G X 5 MM (Insulin Pen Needle) inject subcutaneously four times a day 1000 Each 99 OneTouch UltraSoft Lancets Use as directed 4 times a day as needed for Other (to check BS). Use up to four times a day as directed 100 Each 5 ReliOn Premier Classic Device Use to test blood sugar as directed ReliOn Premier Test In Vitro Strip (Glucose Blood) Use to test blood sugar 4 times daily as directed 100 Strip 0 Insulin Glargine Solostar 100 UNIT/ML Subcutaneous Solution Pen-injector (Basaglar KwikPen) Inject 15 units once daily at bedtime. Dx Code E 11.9 (Patient taking differently: Inject 21 units once daily at bedtime.) 15 mL 3 NovoLOG FlexPen 100 UNIT/ML Subcutaneous Solution Pen-injector (insulin aspart) Inject 12 units + scale three times a day with meals. Max of 20 units three times a day with meals. 15 mL 3 Omeprazole 20 MG Oral [...] by mouth every evening. 90 Tablet 1 Carvedilol 3.125 MG Oral Tablet (Coreg) [...] of skin with itching 30 g 0 Torsemide 20 MG Oral Tablet (Demadex) Take 3 Tablets by mouth in the morning. 90 Tablet 11 Ammonium Lactate 12 % External Cream (Lac-Hydrin) Apply topically to affected area as needed for Dry Skin. Apply to all over body after shower and before bedtime for dry skin 385 g 2 RA Melatonin 1 MG Sublingual Tablet Sublingual (Melatonin) take 1 tablet by mouth at bedtime if needed for insomnia (Patient not taking: Reported on 10/27/2024) 30 Tablet 5 Bromfenac Sodium (Once-Daily) 0.09 % Ophthalmic Solution Instill 1 Drop into eye daily at noon. (Patient not taking: Reported on 11/04/2024) 2 mL 1 Nicotine 21 MG/24HR Transdermal Patch 24 Hour (Nicoderm CQ) Place 1 Patch over 24 hours topically on the skin in the morning. (Patient not taking: Reported on 11/04/2024) 28 Patch 0 traMADol HCl 50 MG Oral Tablet (Ultram) Take 1 Tablet by mouth every 8 hours as needed for Pain, Moderate or Pain, Severe. Ongoing therapy (Patient not taking: Reported on 11/04/2024) 45 Tablet 0 Current Facility-Administered Medications Medication Dose Route Frequency Provider Last Rate Last Admin Aflibercept (Eylea) intraviteal prefilled syringe 2 mg 2 mg Intravitreal PRN 2 mg at 07/15/24 0902 Aflibercept (Eylea) intraviteal prefilled syringe 2 mg 2 mg Intravitreal PRN 2 mg at 07/15/24 0901 lidocaine-epinephrine 2 %-1:737047 inj 6 mg 0.3 mL Injection PRN 6 mg at 07/15/24 0903 albuterol-ipratropium (Duoneb) inhalation solution 3 mL 3 mL Nebulizer PRN 3 mL at 10/27/24 0945 ROS: All others negative unless noted in the HPI Nursing notes reviewed. Medication list, past surgical/medical history reviewed with patient and in Epic. LMP 11/29/2010 Base Eye Exam Visual Acuity (Snellen - Linear) Right Left Dist sc 20/100 20/40 Dist ph sc 20/60 20/30 Tonometry (Tonopen, 9:42 AM) Right Left Pressure 11 19 Pupils Pupils Shape React Right PERRL Round Brisk Left PERRL Round Brisk Visual Simms (Counting fingers) Right Left Full Full Extraocular Movement Right Left Full, Ortho Full, Ortho Neuro/Psych Oriented x3: Yes Mood/Affect: Normal Dilation Both eyes: 0.5% Proparacaine, 2.5% Phenylephrine, 1.0% Mydriacyl @ 9:42 AM Slit Lamp and Fundus Exam External Exam Right Left External Normal Normal Slit Lamp Exam Right Left Lids/Lashes Normal Normal Conjunctiva/Sclera White and quiet White and quiet Cornea Clear Clear Anterior Chamber Deep and quiet Deep and quiet Iris Round and reactive Round and reactive Lens 2+ Nuclear sclerosis, 2+ Cortical cataract, 1+ Posterior subcapsular cataract 2+ Nuclear sclerosis, 2+ Cortical cataract, 1+ Posterior subcapsular cataract Fundus Exam Right Left Vitreous syneresis syneresis Disc Normal drusen elevated C/D Ratio 0.2 Macula Large temporal exudate with CME tr, MAs MAs, CME resolved Vessels Normal Normal Periphery DBH DBH OCT Macula: OD: edema OS: min edema ASSESSMENT/PLAN Retinal edema (Primary) -Pt LTFU x 9 months -Large exudate involving temporal macula appears stable from prior imaging -Previously had DEVORAH x1 with Dr. Brown without improvement -Pt was treated with DEVORAH OU on 07/10/24 but then LTFU until today. -Prior FA suggestive of Mac Tel per Dr. Brown's note -Previously unable to obtain FA today as BP elevated -Previously no improvement on bromfenac qd OU -Discussed exam findings in detail with pt -Recommend I'VE OU today -Emphasized BG/BP control with PCP -R/B/A of Eylea discussed with pt who elects to proceed -Eylea OU administered today without complications -RD/Endophth prec discussed 11/04/2024 doing well at 3 months, go to 4 Moderate nonproliferative diabetic retinopathy of both eyes with macular edema associated with type2 diabetes mellitus (HCC) -Increased CME on exam/imaging OU today -Eylea OU today Combined forms of age-related cataract of both eyes -Appear visually significant -Recommend eval History of 6th nerve palsy, right -Had MRI brain and extensive workup which was unremarkable -Now followed by Dr. Gastelum Follow Up: Return in about 4 months (around 03/04/2025) for OCT OU, injection. | For: OCT OU, injection A/P explained, patient verbalized understanding. Washington Gordon MD Procedure note: The risks and benefits of Eylea injection were discussed including but not limited to infection, intraocular inflammation, cataract, ocular htn, bleeding, and need for repeated treatment. The patientagrees to proceed and the Eylea IC is signed. Eylea OU A "time out" was initiated by Washington Gordon MD prior to procedure. Meera Mcgraw was identified by name and date of . The procedure matches the verbalized consent, and correct procedure and site identified as Eylea injection into the right eye. Alcaine was administered topically followedby 0.2 ml of sub conj lidocaine. The eye was prepped with betadine directly to the ocular surface. A spring speculum was applied. Administered intravitreally 3.5 mm posterior to the limbus along the inferotemporal meridian via a short needle on a TB syringe was 0.05ml (2 mg) of Eylea (aflibercept).The lid speculum was removed. Optic nerve perfusion was confirmed. The patient tolerated the procedu re well. documented in this encounter Nursing Notes * Lacho Stern RN - 11/04/2024 10:06 AM EST Ms. Mcgraw prepared for her 4th Eylea Injection of the Both eyes. Correct eye confirmed with patient and marked. LMP 11/29/2010 Alcaine applied to eye to be injected. Post injection After injection - patient able to count fingers Injected eye rinsed with eye stream. Patient denies any complaints of burning in the eye. Education/Instructions: reinforced for injection. * Serjio Quinteros TECH - 11/04/2024 9:55 AM EST OCT image(s) of both eyes acquired and filed/scanned into chart. M * Nicky Priest TECH - 11/04/2024 9:33 AM EST Per the [place] Dept of Health: Flu and pneumonia vaccine discussed with patient. Influenza and Pneumonia vaccine not administered. ASSESSMENT/PLAN Retinal edema (Primary) Moderate nonproliferative diabetic retinopathy of both eyes with macular edema associated with type2 diabetes mellitus (HCC) Combined forms of age-related cataract of both eyes History of 6th nerve palsy, right Follow Up: Return for 10-12 wks, DFE, OCT OU. | For: 10-12 wks, DFE, OCT OU Diagnoses Codes Comments Moderate nonproliferative diabetic retinopathy of both eyes with macular edema associated with type2 diabetes mellitus (HCC) - Primary E11.3313 eMera Mcgraw is a 69 year old female who presents for a follow up appointment. Last Visit: 10/28/2024 She currently states she feels like her vision has gotten worse in both eyes. She states her right eye seems to be more worse then the left eye. No other complaints. Are you diabetic? YES. Do you check your sugar daily? YES. Fasting BS this mornin mg/dl. LastHemoglobin A1C: Lab Results Component Value Date/Time HGBA1C 8.2 (H) 10/03/2024 04:48 AM HGBA1C 7.4 (H) 05/01/2024 03:19 AM HGBA1C 7.7 (H) 04/24/2024 10:28 AM HGBA1C 6.4 04/19/2016 10:05 AM HGBA1C 9.3 (H) 12/27/2015 07:48 AM HGBA1C 11.2 (H) 11/06/2014 01:17 PM Do you know your last Hemoglobin AIC level? YES. 8.2 Current Ophthalmic Medications: None [facility], IOP, Confrontational simms, Motility, pupil check and dilation can be found in ophth exam. documented in this encounter Plan of Treatment Upcoming Encounters Date Type Department Care Team (Late st Contact Info) Description 12/15/2024 4:20 PM EDT Office Visit Nephrology [facility] Kymberly MIRANDA [address] [place] [phone] [facility]ie [facility] [address] [facility] [place] [address] 12/23/2024 10:30 AM EDT Office Visit Ophthalmology [facility] [address] [place] [address] Archana Nava MD [address] [place] [address] 12/24/2024 10:30 AM EDT Office Visit Cardiology [facility] [place] [address] [facility] [place] [address] Angela Briggs CRNP [address] [facility] [place] [address] 01/07/2025 12:45 PM EDT Appointment Radiology [facility] Kymberly Zhang [address] [facility] [place] [phone] 01/22/2025 1:15 PM EDT Imaging Radiology [facility] [address] [place] [address] 02/09/2025 10:00 AM EDT Office Visit Pulmonary Medicine [facility] Kymberly Vicente [address] [facility] [place] [phone] Braxton Elizalde MD [address] [facility] [place] [address] 03/03/2025 1:00 PM EDT Office Visit Ophthalmology [facility] [address] [place] [address] Washington Gordon MD [address] [address] , Nurse Ophthalmology [address] [address] Health Maintenance Due Date Last Done Comments [...] this encounter Medical Devices Implanted Type Area Stain Maker Device Identifier Shelf Expiration Date Model / Serial / Lot Cath Drainage 10fr [id number]-[id number] - [id number] Implanted:Qty : 1 on 05/07/2023 at [facility] Right: Abdomen [employer] [id number] 02/15/2026 C-10-03 8 / / [id number] documented as of this encounter Visit Diagnoses Diagnosis Moderate nonproliferative diabetic retinopathy of both eyes with macular edema associated with type 2 diabetes mellitus (HCC)- Primary documented in this encounter Administered Medications Active Administered Medications - up to 3 most recent administrations Medication Order MAR Action Action Date Dose Rate Site Aflibercept (Eylea) intraviteal prefilled syringe 2 mg 2 mg, Intravitreal, PRN Other, Starting on Sun04/17/24 at 1114, Until Sun04/17/25 at 1113, For 365 days, Right EyeIndications:Moderate nonproliferative diabetic retinopathy of both eyes with macular edema associated with type 2 diabetes mellitus (HCC),Optic nerve drusen, left,6th nerve palsy, right,Combined forms of age-related cataract of both eyes Given 11/04/2024 10:08 AM EST 2 mg Eye Left Given 07/15/2024 9:02 AM EDT 2 mg Ey e Right Given 05/20/2024 10:30 AM EDT 2 mg E ye Left Aflibercept (Eylea) intraviteal prefilled syringe 2 mg 2 mg, Intravitreal, PRN Other, Starting on Sun04/17/24 at 1114, Until Sun04/17/25 at 1113, For 365 days, Left EyeIndications:Moderate nonproliferative diabetic retinopathy of both eyes with macular edema associated with type 2 diabetes mellitus (HCC),Optic nerve drusen, left,6th nerve palsy, right,Combined forms of age-related cataract of both eyes Given 11/04/2024 10:08 AM EST 2 mg Eye Right Given 07/15/2024 9:01 AM EDT 2 mg Ey e Left Given 05/20/2024 10:29 AM EDT 2 mg E ye Right lidocaine-epinephrine 2 %-1:128319 inj 6 mg 6 mg (0.3 mL), Injection, PRN Other, Starting on Sun04/17/24 at 1114, Until Sun04/17/25 at 1113, For 365 daysIndications:Moderate nonproliferative diabetic retinopathy of both eyes with macular edema associated with type 2 diabetes mellitus (HCC),Optic nerve drusen, left,6th nerve palsy, right,Combined forms of age-related cataract of both eyes Given 11/04/2024 10:08 AM EST 6 mg Eye Left Given 11/04/2024 10:07 AM EST 6 mg E ye Right Given 07/15/2024 9:03 AM EDT 6 mg Ey e Right documented in this encounter Advance Directives * [...] Power of Attor cristin? No Care Teams Assistant Spa Manager Relationship Specialty Start Date End Date Denis Urbina MD [address] [place] [address] PCP - General Family Medicine 04/17/22 documented as of this encounter
--- OUTSIDE RECORDS SUMMARY | 2025-01-09 05:27 | External Medical Summary | Summary of Care ---
Author Name Unknown Organization [facility] Address [address] [place] [address] Phone [phone] Care Team Providers Care Qa Consultant Name Role Phone Denis Urbina MD Primary Care Provider [phone] Reason for Visit * Reason Comments eRx-Medication Refill Encounter Details Date Type Department Care Team ([facility] st Contact Info) Description 11/16/2024 Refill [facility] [address] [place] [address] Denis Urbina MD [address] [place] [address] Gastroesophageal reflux disease without esophagitis Allergies No known active allergiesdocumented as of this encounter (statuses as of 11/18/2024) Medications Albuterol Sulfate (2.5 MG/3ML) 0.083% Inhalation [...] Each 022 Active FreeStyle Maria Luz 2 [place] Device Use as directed . 1 Each 022 Active BD Insulin Syringe U/F 30G X 1/2" 0.3 ML (Insulin Syringe-Needle U-100)Indications :Type 2 diabetes mellitus without complication (HCC),Type 2 diabetes mellitus without complication, with long-term current use of insulin (HCC) INJECT UNDER THE SKIN 4 TIMES A DAY 100 Each 2 023 Active Droplet Pen [place] 31G X 5 MM (Insulin Pen Needle)Indication s:Type 2 diabetes mellitus without complication, with long-term current use of insulin (HCC) inject subcutaneously four times a day 1000 Each 023 Active OneTouch UltraSoft LancetsIndication s:Type 2 diabetes mellitus without complication, unspecified whether mcc insulin use (HCC) Use as directed 4 [...] UNDER THE TONGUE DAILY 90 Tablet Active Escitalopram Oxalate 10 MG Oral Tablet (Lexapro)Indicati ons:Episode of recurrent major depressive disorder, unspecified depression episode severity (HCC) Take 1 Tablet by mouth in the morning. In the morning.. 90 Tablet Active Fluticasone Propionate 50 MCG/ACT [...] every morning 90 Capsule 2 025 Active Omeprazole 20 MG Oral Capsule Delayed Release (PriLOSEC)Indicat ions:Gastroesopha geal reflux disease without esophagitis take 1 capsule by mouth every morning 90 Capsule 1 024 2024 Discontinued Hospital, Clinic, or [...] IZ PRN 04/17/2024 04/17/2025 Active lidocaine-epinephrine 2 %-1:189179 inj 6 mgIndications:Moderate nonproliferative diabetic retinopathy of [...] as of this encounter (statuses as of 11/18/2024) Active Problems Problem Noted Date Diagnosed Date [...] as of this encounter (statuses as of 11/18/2024) Resolved Problems Problem Noted Date Diagnosed Date [...] as of this encounter (statuses as of 11/18/2024) Immunizations Name Administration Dates Next Due Covid-19 Ad26, Single Dose ([place]/J&J) 021 Hepatitis B, 20+ yrs 12/08/2014,03/31/2011,02/23 Pneumococcal Conjugate Vacci ne, 20-valent (Vmiqjnt22) 06/06/2023 Pneumococcal Polysaccharide PPV23 (Pneumovax) 02/10/2011 Seasonal [...] encounter Miscellaneous Notes * Telephone Encounter - Chloe Arredondo RPh - 11/18/2024 9:50 AM ESTSigned Prescriptions: Disp Refills Omeprazole 20 MG Oral Capsule Delayed Rele*90 Cap*2 Sig: take 1 capsule by mouth every morningAuthorizing Provider: Brooke URBINA User: CHLOE ARREDONDO documented in this encounter Plan of Treatment Upcoming Encounters Date Type Department Care Team (Late st Contact Info) Description 12/15/2024 4:20 PM EDT Office Visit Nephrology [facility] [address] [place] [phone] Elie Dixon MD [address] [place] [address] 12/23/2024 10:30 AM EDT Office Visit Ophthalmology [facility] [address] [place] [address] [place] [address] [place] [address] 12/24/2024 10:30 AM EDT Office Visit Cardiology [facility] [address] [place] [address] Angela Briggs CRNP [address] [facility] [place] [address] 01/07/2025 12:45 PM EDT Appointment Radiology [facility] [place] [address] [place] [phone] 01/22/2025 1:15 PM EDT Imaging Radiology [facility] [address] [place] [address] 02/09/2025 10:00 AM EDT Office Visit Pulmonary Medicine [facility] [place] [address] [place] [phone] Braxton Elizalde MD [address] [facility] [place] [address] 03/03/2025 1:00 PM EDT Office Visit Ophthalmology [facility] [address] [place] [address] Washington Gordon MD [address] [place] [address] [place] [address] [address], Nurse Ophthalmology [facility] [address] [place] [address] Health Maintenance Due Date Last Done Comments [...] 03/29/20 23, 03/27/2023, 02/17/2010 COVID-19 Vaccine ( - season) 2024 06/18/2021 Influenza Vaccine (FLU [...] this encounter Medical Devices Implanted Type Area Econometrics Professor Device Identifier Shelf Expiration Date Model / Serial / Lot Cath Drainage 10fr [facility]-10-038 - [id number] Implanted:Qty : 1 on 05/07/2023 at [facility] Right: Abdomen [facility] [employer] [facility] [id number] 02/15/2026 [facility]-10-03 8 / / [id number] documented as of this encounter Visit Diagnoses Diagnosis Gastroesophageal reflux disease without esophagitis Esophageal reflux documented in this encounter Advance Directives * [...] Power of Attor cristin? No Care Teams Qa Consultant Relationship Specialty Start Date End Date Denis Urbina MD [address] [place] [address] PCP - General Family Medicine 04/17/22 documented as of this encounter
--- OUTSIDE RECORDS SUMMARY | 2025-01-09 05:28 | External Medical Summary | Summary of Care ---
Author Name Unknown Organization [facility] Address [address] [place] [address] Phone [phone] Care Team Providers Care Glove Turner And Former Name Role Phone Denis Urbina MD Primary Care Provider + [phone] Reason for Visit * Reason Onset Date Comments Skilled Visit 11/10/2024 Encounter Details Date Type Department Care Team (Latest Contact Info) Description 11/04/2024 9:30 AM EST Mcfp Visit [facility] [address] [place] [address] Deepika Bates CRNP [address] [address] Type 2 diabetes mellitus with diabetic polyneuropathy, with long-term current use of insulin ([facility])*; Chronic respiratory failure with hypoxia and hypercapnia ([facility]); Heart failure, diastolic, with acute decompensation ([facility]); COPD, group C, by GOLD 2017 classification ([facility]); Acute on chronic diastolic (congestive) heart failure ([facility]); Chronic kidney disease, stage 4 (severe) ([facility]); HTN, goal below 140/90; PAOLA (obstructive sleep apnea); Chronic kidney disease, stage 3b (HCC) Allergies No known active allergiesdocumented as of this encounter (statuses as of 11/10/2024) Medications Albuterol Sulfate (2.5 MG/3ML) 0.083% Inhalation [...] 06/27/20 22 Active FreeStyle Maria Luz 2 [place] Device Use as directed . 1 Each 06/27/20 22 Active BD Insulin Syringe U/F 30G X 1/2" 0.3 ML (Insulin Syringe-Needle U-100)Indications: Type 2 diabetes mellitus without complication (HCC),Type 2 diabetes mellitus without complication, with long-term current use of insulin (HCC) INJECT UNDER THE SKIN 4 TIMES A DAY 100 Each 2 06/06/20 23 Active Droplet Pen Canadensis 31G X 5 MM (Insulin Pen Needle)Indications :Type 2 diabetes mellitus without complication, with long-term current use of insulin (HCC) inject subcutaneously four times a day 1000 Each 06/07/20 23 Active OneTouch UltraSoft LancetsIndications :Type 2 diabetes mellitus without complication, unspecified whether watermelon harvesting supervisor insulin use (HCC) Use as directed 4 [...] morning. In the morning.. 90 Tablet 1 06/04/20 24 Active Fluticasone [...] mouth in the morning. 90 Tablet 11 10/10/19 Active Nicotine 21 MG/24HR Transdermal Patch 24 [...] IZ PRN 04/17/2024 04/17/2025 Active lidocaine-epinephrine 2 %-1:[id number] inj 6 mgIndications:Moderate nonproliferative diabetic retinopathy of [...] as of this encounter (statuses as of 11/10/2024) Active Problems Problem Noted Date Diagnosed Date [...] as of this encounter (statuses as of 11/10/2024) Resolved Problems Problem Noted Date Diagnosed Date [...] as of this encounter (statuses as of 11/10/2024) Immunizations Name Administration Dates Next Due Covid-19 Ad26, Single Dose ([place]/J&J) 021 Hepatitis B, 20+ yrs 12/08/2014,03/31/2011,02/23 Pneumococcal Conjugate Vacci ne, 20-valent ([id number]) 06/06/2023 Pneumococcal Polysaccharide PPV23 (Pneumovax) 02/10/2011 Seasonal [...] No 01/22/2024 Does the household have a [facility] source of income? (Household - for [...] documented in this encounter Progress Notes * Deepika Bates CRNP - 11/10/2024 10:31 AM EST Name: Meera Mcgraw Date of :1955 TRANSITION EVENT: Type: skilled Date: Nov 04, 2024 Code Status: Full Code This note pertains to care provided at [facility]. Please see facility medical record for original note. This note is not to be edited or addended in [facility]. Editing or addending needs to occur in the facilities medical record. Subjective: Meera Mcgraw is a 69 year old female. Patient being seen for skilled visit. Chief Complaint Patient presents with Skilled Visit HPI: This is a 69 yo female who was seen at the bedside today for skilled visit. She is admitted to [facility] from [facility] where she was hospitalized from 10/02/2024-10/10/2024 HOSPITAL COURSE (focused): 69-year-old female with a PMH significant for COPD on 2 L oxygen at baseline, PAOLA on CPAP at night,heart failure with preserved ejection fraction (LVEF 55%), chronic bilateral lower extremity venousstasis wound, type 2 diabetes, CKD presented to the ED on 1/9 with increased shortness of breath, weight gain, lower extremity swelling, worsening wound and new rash and admitted for acute on chronichypoxic respiratory failure likely due to CHF excerebration patient was disured and hospital coursewas complicated by acidosis and hypercapnia requiring BIPAP and PCU level of care. Acidosis and hypercapnia resolved and patient was transferred to the floors. Patient was diuresed with IV Lasix and transitioned to PLANT GENERAL MANAGER torsemide. Patient received 2 doses of permethrin application on account of suspicion of scabies. Dermatology consulted and recommended for 5 for Gram jar of triamcinolone ointment0.1% to apply twice daily as needed for itching and for outpatient Dermatology consult on discharge. Patient was seen by Podiatry due to bilateral lower extremity leg wound that bilateral lower extremity dressings with ABDs, Kerlix and Miguel wraps daily. Patient was seen by Wound Care and recommendedfollow [facility] on discharge. Patient was hemodynamically stable at the time ofdischarge. HPI: This is a 69 yo female who was seen at the bedside today for skilled visit She has been having issues with recurrent lice that she is coming into contact with when she visitshome. She has been treated multiple times with NIX with effect. She is resting in wheelchair and offers no complaints. She denies fever and chills. Denies cough, wheezing, CP and SOB. Denies ABD pain, N/V/D. Denies cough ,wheezing, CP and SOB Denies urinary sx and malaise. Denies PUENTE Reports good appetite. Sleeping well. Taking medications as directed Patient Active Problem List Diagnosis Restless leg syndrome SLEEP APNEA, UNSPECIFIED History of colonic polyps PPD positive Major depressive disorder ARTHRITIS -HANDS Rosacea Dyslipidemia, goal LDL below 100 Vitamin deficiency Tobacco use disorder HTN, goal below 140/90 SOB (shortness of breath) DDD (degenerative disc disease), lumbar Type 2 diabetes mellitus with diabetic polyneuropathy, with long-term current use of insulin ([facility]) Right abducens nerve palsy Obesity hypoventilation syndrome (HCC) Lesion of bone of cervical spine BMI 40.0-44.9, adult ([facility]) Anxiety state Choledocholithiasis Chronic respiratory failure with hypoxia and hypercapnia ([facility]) Moderate nonproliferative diabetic retinopathy of both eyes with macular edema associated with type2 diabetes mellitus ([facility]) Heart failure, systolic and diastolic, acute on chronic ([facility]) Acute respiratory failure with hypercapnia ([facility]) Food insecurity Chronic kidney disease with symptom management only, stage 3 (moderate) ([facility]) COPD, group C, by GOLD 2017 classification ([facility]) Onychomycosis of nail of digit of hand Acute renal failure superimposed on stage 3b chronic kidney disease (HCC) Chronic kidney disease, stage 4 (severe) ([facility]) Venous stasis ulcers of both lower extremities ([facility]) Hyperkalemia Cellulitis Acute on chronic respiratory failure with hypercapnia ([facility]) Excoriation Past Medical History: Diagnosis Date Acute appendicitis 01/29/2017 Acute respiratory failure with hypoxia and hypercapnia ([facility]) 06/19/2022 Chronic venous hypertension with ulcer ([facility]) 05/05/2022 Controlled substance agreement signed 01/28/2017 COPD exacerbation ([facility]) 12/26/2015 COPD, severity to be determined ([facility]) 12/26/2015 Diabetic retinopathy of right eye associated with type 2 diabetes mellitus ([facility]) 06/08/2021 Dyslipidemia 12/26/2015 Dyslipidemia, goal to be determined Gastroesophageal reflux disease without esophagitis 05/04/2023 Heart failure, diastolic, with acute decompensation ([facility]) 06/19/2022 Heart failure, diastolic, with acute decompensation ([facility]) 2023-10-28 Adding I50.33-Heart failure, diastolic, with acute decompensation ([facility]) Dx to History HTN, goal below 140/90 11/07/2014 HTN, goal to be determined Hypoxia 12/26/2015 Influenza A 12/29/2015 Kidney disease, chronic, stage III (GFR 30-59 ml/min) ([facility]) 06/28/2022 Major depressive disorder 07/15/2007 ICD-10 update of inactive term Obesity hypoventilation syndrome ([facility]) 06/28/2022 Obesity, BMI not known Personal history of colonic polyps PPD positive Restless leg syndrome Right abducens nerve palsy 06/19/2022 Sleep apnea SOB (shortness of breath) 12/26/2015 T2DM (type 2 diabetes mellitus) ([facility]) dx age 55 Type 2 diabetes mellitus with diabetic polyneuropathy, with long-term current use of insulin ([facility]) 12/10/2019 Past Surgical History: Procedure Laterality Date AFLIBERCEPT IO SOLN, PER 1MG, INJ Bilateral 04/17/2024 Darby # 1 OU / Dr. Moss AFLIBERCEPT [...] performed by Scotty Pearson DO at END[facility] FLUORESCEIN ANGIOGRAPHY MULTIFRAME 01/12/2017 OD > OS / Dr. Brown FX/DIS,RADIAL,OPN,INTRAARTIC,INT FIX,[address] Savage INJECTION OF EYE DRUG Bilateral 07/15/2024 Eylea OU # 3 Dr Gordon IR ASPIRATION ABSCESS/COLLECTION 05/07/2023 IR PROCEDURE NOT PERFORMED DOCUMENTATION ONLY 05/07/2023 LAPAROSCOPY;APPENDECTOMY N/A 01/28/2017 LAPAROSCOPIC APPENDECTOMY performed by West Newell MD at [facility] PARTIAL REMOVAL OF COLON 2000 left hemicolectomy, polyps REMOVE TONSILS & ADENOIDS, UNDER 12 Family History Problem Relation Name Age of Onset Cancer Mother breast Obesity Father Obesity Brother sleep apnea Family Status Relation Status Mo Fa Bro Alive Bro (Not Specified) Social History Socioeconomic History Marital status: Spouse [...] Stability Do you currently live in a fci or have no steady place to sleep [...] - for ages0-17 years): Not on file Review of patient's allergies indicates: No Known Allergies I have reviewed medications and allergies. Please refer to MAR in the facility's medical record forthe most up-to-date medication list as this cannot be edited in [facility]. Review of Systems: all areas negative except as mentioned under HPI OBJECTIVE: PHYSICALEXAM: Physical Exam Vitals and nursing note reviewed. Constitutional: General: She is not in acute distress. Appearance: Normal appearance. She is not ill-appearing, toxic-appearing or diaphoretic. HENT: Head: Normocephalic and atraumatic. Nose: Nose normal. Mouth/Throat: Mouth: Mucous membranes are moist. Eyes: Extraocular Movements: Extraocular movements intact. Conjunctiva/sclera: Conjunctivae normal. Cardiovascular: Rate and Rhythm: Normal rate. Heart sounds: No murmur heard. No gallop. Pulmonary: Effort: Pulmonary effort is normal. No respiratory distress. Breath sounds: No wheezing or rales. Abdominal: General: Abdomen is flat. Bowel sounds are normal. There is no distension. Palpations: Abdomen is soft. Tenderness: There is no abdominal tenderness. Musculoskeletal: General: No swelling or deformity. Cervical back: Neck supple. Skin: General: Skin is warm. Comments: See facility record Neurological: Mental Status: She is alert and oriented to person, place, and time. Psychiatric: Mood and Affect: Mood normal. Behavior: Behavior normal. Judgment: Judgment normal. Acetaminophen Oral Tablet 325 MG (Acetaminophen) Give 650 mg by mouth every 6 hours as needed for Temp greater than 100 Do not exceed 3gm/24h from all sources AND Give 650 mg by mouth every 6 hours as needed for Mild Pain 1-3 Do not exceed 3gm/24h from all sources ,Non-Pharmacological Interventions 1. Reposition 2. Back rub 3. Music 4. Warm/cool compress 5. Diversional activity 6. Other(progress note) Milk of Magnesia Suspension 400 MG/5ML (Magnesium Hydroxide) Give 30 ml by mouth as needed for Constipation Administer if no BM by the third day/9 shifts Document effectiveness. Dulcolax Suppository (Bisacodyl) Insert 1 suppository rectally as needed for Constipation For no Bowel movement within 24 hours after administration of Milk of Magnesia. Fleet Enema Enema 7-19 GM/118ML (Sodium Phosphates) Insert 1 applicatorful rectally as needed for Constipation For no bowel movement by the end of the following shift after administration of suppository. Notify MD if ineffective. HumaLOG KwikPen 100 UNIT/ML Solution pen-injector INJECT 12 UNIT SUBCUTANEOUSLY BEFORE MEALS FOR DIABETES BEFORE BREAKFAST Melatonin Oral Capsule 1 MG (Melatonin) Give 1 mg by mouth every 24 hours as needed for insomnia for 14 Days Fluticasone Propionate Suspension 50 MCG/ACT 2 spray in each nostril one time a day for nasal irritation Cyanocobalamin Tablet 1000 MCG Give 1 tablet by mouth one time a day for supplement Ketoconazole External Shampoo 2 % (Ketoconazole (Topical)) Apply to scalp topically every day shift every Sun, Sun for dry skin Torsemide Oral Tablet 20 MG (Torsemide) Give 3 tablet by mouth in the morning related to ACUTE ON CHRONIC DIASTOLIC (CONGESTIVE) HEART FAILURE (I50.33) 3 tabs for a total of 60 mg daily Albuterol Sulfate Nebulization Solution (2.5 MG/3ML) 0.083% 3 milliliter inhale orally via nebulizer every 4 hours as needed for SOB Cyclobenzaprine HCl Tablet 5 MG Give 1 tablet by mouth every 8 hours as needed for muscle spasms for 7 Days Ondansetron HCl Tablet 4 MG Give 1 tablet by mouth every 8 hours as needed for Nausea Warning: Controlled Drug There is a black box warning associated with this order. Please click to view details. traMADol HCl Oral Tablet 50 MG (Tramadol HCl) Give 1 tablet by mouth every 8 hours as needed for moderate pain for 15 Days Gabapentin Oral Capsule 100 MG (Gabapentin) Give 2 capsule by mouth three times a day for neuropathy Cholecalciferol Tablet 1000 UNIT Give 2 tablet by mouth one time a day for deficiency Omeprazole Oral Capsule Delayed Release 20 MG (Omeprazole) Give 1 capsule by mouth in the morning for GERD Nicotine Step 1 Transdermal Patch 24 Hour 21 MG/24HR (Nicotine) Apply 1 patch transdermally in the morning for smoking sensation for 6 Weeks and remove per schedule Carvedilol Tablet 3.125 MG Give 1 tablet by mouth two times a day for Hypertension Hold if SBP is less then 110 or Pulse is less than 55 Simvastatin Oral Tablet 20 MG (Simvastatin) Give 1 tablet by mouth in the evening for HDL hydrOXYzine HCl Oral Tablet 25 MG (Hydroxyzine HCl) Give 1 tablet by mouth every 8 hours as needed for anxiety for 14 Days Insulin Glargine Solution 100 UNIT/ML Inject 15 unit subcutaneously at bedtime for diabetes Ammonium Lactate External Lotion 12 % (Lactic Acid (Ammonium Lactate)) Apply to BLE topically at bedtime for dry skin Bromfenac Sodium (Once-Daily) Ophthalmic Solution 0.09 % (Bromfenac Sodium (Ophth)) Instill 1 drop in right eye in the morning related to SIXTH [ABDUCENT] NERVE PALSY, RIGHT EYE (H49.21) Lexapro Oral Tablet 10 MG (Escitalopram Oxalate) Give 1 tablet by mouth in the morning for Depression NovoLOG FlexPen Subcutaneous Solution Pen-injector 100 UNIT/ML (Insulin Aspart) Inject as per sliding scale: if 200 - 250 = 2 units; 251 - 300 = 4 units; 301 - 350 = 6 units; 351 - 400 = 8 units Notify MD if BS greater than 400., subcutaneously before meals for DM Triamcinolone Acetonide External Cream 0.1 % (Triamcinolone Acetonide (Topical)) Apply to arms/back topically every 12 hours as needed for rash Gvoke Kit Subcutaneous Solution 1 MG/0.2ML (Glucagon) Inject 1 mg subcutaneously as needed for Hypoglycemia Symptoms difficult to arouse, or if unconscious Administer immediately if BS<60 and resident unable to swallow. Notify Provider and Recheck BSin 15 minutes. If BS remains <60 administer 2nd dose and then contact provider. ASSESSMENT: Head lice Nix as directed Monitor Type 2 diabetes mellitus with diabetic polyneuropathy, with long-term current use of insulin (HCC) (Primary) Continue current regimen Chronic respiratory failure with hypoxia and hypercapnia (HCC) Stable Monitor Heart failure, diastolic, with acute decompensation (HCC) Continue current regimen Chronic kidney disease, stage 4 (severe) (HCC) Avoid nephrotoxins Monitor creatinine COPD, group C, by GOLD 2017 classification (HCC) Continue current regimen HTN, goal below 140/90 Stable continue current regimen PAOLA (obstructive sleep apnea) PLAN: Continue present medication(s):as ordered. Assisted Home Treatment Given: Other none Electronically signed by: AZEEM Mauricio Over 49 minutes were spent in this visit more than half the time was spent counselling or coordinating care. documented in this encounter Plan of Treatment Upcoming Encounters Date Type Department Care Team (Late st Contact Info) Description 12/15/2024 4:20 PM EDT [facility] [address] [facility] [place] [phone] Elie Dixon MD [address] [facility] [place] [address] 12/23/2024 10:30 AM EDT Office Visit Ophthalmology [address] [address] Archana Nava MD [address] [place] [address] 12/24/2024 10:30 AM EDT Office Visit Cardiology [facility] [place] [address] [facility] [place] [address] Angela Briggs CRNP [address] [place] [facility] [place] [address] 01/07/2025 12:45 PM EDT [facility]ment [facility] [address] [facility] [place] [address] 01/22/2025 1:15 PM EDT Imaging Radiology [address] [address] 02/09/2025 10:00 AM EDT Office [facility] [address] [facility] [place] [address] Braxton Elizalde MD [address] [place] [address] 03/03/2025 1:00 PM EDT Office Visit Ophthalmology [address] [address] [place] Gordon MD [address] [place] [address] [place] [address] , Nurse Ophthalmology [address] [address] Health Maintenance Due Date Last Done Comments [...] this encounter Medical Devices Implanted Type Area Mosaic Tile Maker Device Identifier Shelf Expiration Date Model / Serial / Lot Cath Drainage 10fr [facility]-10-038 - [id number] Implanted:Qty : 1 on 05/07/2023 at [facility] Right: Abdomen [employer] [id number] 02/15/2026 [facility]-10-03 8 / / [id number] documented as of this encounter Visit Diagnoses Diagnosis Type 2 diabetes mellitus with diabetic polyneuropathy, with long-term current use of insulin (HCC)- Primary Chronic respiratory failure with hypoxia and hypercapnia (HCC) Heart failure, diastolic, with acute decompensation (HCC) Acute on chronic diastolic heart failure COPD, group C, by GOLD 2017 classification (HCC) Acute on chronic diastolic (congestive) heart failure (HCC) Chronic kidney disease, stage 4 (severe) (HCC) HTN, goal below 140/90 Unspecified essential hypertension PAOLA (obstructive sleep apnea) Obstructive sleep apnea (adult) (pediatric) Chronic kidney disease, stage 3b (HCC) documented in this encounter Advance Directives [...] Power of Attor cristin? No Care Teams Glove Turner And Former Relationship Specialty Start Date End Date Denis Urbina MD [address] [place] [address] PCP - General Family Medicine 04/17/22 documented as of this encounter
--- OUTSIDE RECORDS SUMMARY | 2025-01-09 05:28 | External Medical Summary | Summary of Care ---
Author Name Unknown Organization [facility] Address [address] [place] [address] Phone [phone] Care Team Providers Care Electric Melt Operator Name Role Phone eDnis Urbina MD Primary Care Provider + [phone] Reason for Referral * Precert (Within 10 days (routine)) - Authorized Specialty Diagnoses / Procedures Referred By Contac t Referred To Contact Radiology Diagnoses Chronic respiratory failure with hypoxia and hypercapnia (HCC) Procedures CT CHEST WO CONTRAST Johanny Hutton CRNP [address] [place] [address] Phone: tel: fax: Referral ID Status Reason Start Date Expiration Date V isits Requested Visits Authorized [id number] Authorized 01/07/2025 999 999 Reason for Visit * Reason Comments Follow Up Encounter Details Date Type Department Care Team (Latest Contact Info) Description 11/10/2024 8:00 AM EST Office Visit Pulmonary Medicine [facility] Kymberly Zhang [facility] [address] [facility] [place] [address] Braxton Elizalde MD [address] [place] [address] [place] [address] Chronic respiratory failure with hypoxia and hypercapnia [...] 06/27/20 22 Active FreeStyle Maria Luz 2 Yantis Device Use as directed . 1 Each 06/27/20 22 Active BD Insulin Syringe U/F 30G X 1/2" 0.3 ML (Insulin Syringe-Needle U-100)Indications: Type 2 diabetes mellitus without complication (HCC),Type 2 diabetes mellitus without complication, with long-term current use of insulin (HCC) INJECT UNDER THE SKIN 4 TIMES A DAY 100 Each 2 06/06/20 23 Active Droplet Pen [place] 31G X 5 MM (Insulin Pen Needle)Indications :Type 2 diabetes mellitus without complication, with long-term current use of insulin (HCC) inject subcutaneously four times a day 1000 Each 06/07/20 23 Active OneTouch UltraSoft LancetsIndications :Type 2 diabetes mellitus without complication, unspecified whether halfway insulin use (HCC) Use as directed 4 [...] Glargine Solostar 100 UNIT/ML Subcutaneous Solution Pen-injector (Vilma Granados) Inject 15 units once daily at bedtime. Dx Code E 11.9 15 mL 01/16/20 Active Additional Information Patient taking differently: Inject 21 units once daily at bedtime., Informant: Patient, Pharmacy, Reported on 11/10/2024 NovoLOG FlexPen 100 UNIT/ML Subcutaneous Solution Pen-injector (insulin aspart) Inject 12 units + scale three times a day with meals. Max of 20 units three times a day with meals. 15 mL 01/16/20 24 Active Omeprazole 20 MG Oral Capsule Delayed Release (PriLOSEC)Indicati ons:Gastroesophage al reflux disease without esophagitis take 1 capsule by mouth every morning 90 Capsule 06/01/20 24 Active Bromfenac Sodium (Once-Daily) 0.09 % Ophthalmic Solution Instill 1 Drop into eye daily at noon. 2 mL 06/04/20 Active Additional Information Patient not taking.Informant: Patient, [...] in the morning. 90 Tablet 11 10/10/19 25 Active Nicotine 21 MG/24HR Transdermal [...] Cough. 30 Capsule 1 11/10/19 25 Active Hospital, Clinic, or Other Facility [...] IZ PRN 04/17/2024 04/17/2025 Active lidocaine-epinephrine 2 %-1:718276 inj 6 mgIndications:Moderate nonproliferative diabetic retinopathy of [...] yrs 12/08/2014,03/31/2011,02/23 Pneumococcal Conjugate Vacci ne, 20-valent ([id number]) 06/06/2023 Pneumococcal Polysaccharide PPV23 (Pneumovax) 02/10/2011 Seasonal [...] Assessment Author No 10/03/2024 7:48 PM Lokesh Churhc RN * Do you have serious difficulty [...] Entry Date Author No 10/03/2024 7:48 PM EST Lokesh Hurtado RN documented in this encounter Progress Notes * Johanny Hutton CRNP - 11/10/2024 8:40 AM EST Pulmonary Medicine [facility], Kymberly Zhang [address] [facility] [place] [address] Meera Mcgraw 69 year old female November 10, 2024 8:41 AM Chief complaint: Chief Complaint Patient presents with Follow Up Past Medical History: Diagnosis Date Acute appendicitis 01/29/2017 Acute respiratory failure with hypoxia and hypercapnia (HCC) 06/19/2022 Chronic venous hypertension with ulcer ([facility]) 05/05/2022 Controlled substance agreement signed 01/28/2017 COPD exacerbation (HCC) 12/26/2015 COPD, severity to be determined ([facility]) 12/26/2015 Diabetic retinopathy of right eye associated with type 2 diabetes mellitus ([facility]) 06/08/2021 Dyslipidemia 12/26/2015 Dyslipidemia, goal to be determined Gastroesophageal reflux disease without esophagitis 05/04/2023 Heart failure, diastolic, with acute decompensation (HCC) 06/19/2022 Heart failure, diastolic, with acute decompensation ([facility]) 2023-10-28 Adding I50.33-Heart failure, diastolic, with acute decompensation ([facility]) Dx to History HTN, goal below 140/90 11/07/2014 HTN, goal to be determined Hypoxia 12/26/2015 Influenza A 12/29/2015 Kidney disease, chronic, stage III (GFR 30-59 ml/min) ([facility]) 06/28/2022 Major depressive disorder 07/15/2007 ICD-10 update of inactive term Obesity hypoventilation syndrome (HCC) 06/28/2022 Obesity, BMI not known Personal history of colonic polyps PPD positive Restless leg syndrome Right abducens nerve palsy 06/19/2022 Sleep apnea SOB (shortness of breath) 12/26/2015 T2DM (type 2 diabetes mellitus) ([facility]) dx age 55 Type 2 diabetes mellitus with diabetic polyneuropathy, with long-term current use of insulin ([facility]) 12/10/2019 Ms. Meera Mcgraw, a 69 year old female, presents today for follow up. Last seen by Dr. Elizalde on 10/27/24. Current pulmonary regimen: oxygen-- 4 LPM continuous. Duonebs QID. Guaifenesin as needed Flonase Interim History: last visit was treated for acute illness. Received Duonebs, IM solumedrol and prednisone taper. 10/27/24 RVP was + coronavirus. She was hospitalized in September then went to [facility]. Prior to this she has been [...] (HCC) 06/19/2022 Chronic venous hypertension with ulcer ([facility]) 05/05/2022 Controlled substance agreement signed 01/28/2017 COPD exacerbation (HCC) 12/26/2015 COPD, severity to be determined (HCC) 12/26/2015 Diabetic retinopathy of right eye associated with type 2 diabetes mellitus (HCC) 06/08/2021 Dyslipidemia 12/26/2015 Dyslipidemia, goal to be determined Gastroesophageal reflux disease without esophagitis 05/04/2023 Heart failure, diastolic, with acute decompensation (HCC) 06/19/2022 Heart failure, diastolic, with acute decompensation ([facility]) 2023-10-28 Adding I50.33-Heart failure, diastolic, with acute decompensation ([facility]) Dx to History HTN, goal below 140/90 11/07/2014 HTN, goal to be determined Hypoxia 12/26/2015 Influenza A 12/29/2015 Kidney disease, chronic, stage III (GFR 30-59 ml/min) ([facility]) 06/28/2022 Major depressive disorder 07/15/2007 ICD-10 update of inactive term Obesity hypoventilation syndrome ([facility]) 06/28/2022 Obesity, BMI not known Personal history of colonic polyps PPD positive Restless leg syndrome Right abducens nerve palsy 06/19/2022 Sleep apnea SOB (shortness of breath) 12/26/2015 T2DM (type 2 diabetes mellitus) ([facility]) dx age 55 Type 2 diabetes mellitus with diabetic polyneuropathy, with long-term current use of insulin ([facility]) 12/10/2019 Current Outpatient Medications Medication Sig Dispense Refill Albuterol Sulfate (2.5 MG/3ML) 0.083% Inhalation Nebulization Solution (Proventil) One vial in nebulizer every 4 hours as needed for wheezing 3 mL 1 Insulin Glargine Solostar 100 UNIT/ML Subcutaneous Solution Pen-injector (PublicB[employer] Planet OSikPen) Inject 15 units once daily at bedtime. [...] 1 Each 0 FreeStyle Maria Luz 2 Yantis Device Use as directed . 1 Each 0 BD Insulin Syringe U/F 30G X 1/2" 0.3 ML (Insulin Syringe-Needle U-100) INJECT UNDER THE SKIN 4 TIMES A DAY 100 Each 2 Droplet Pen Clyman 31G X 5 MM (Insulin Pen Needle) [...] 2 mg at 11/04/24 1008 lidocaine-epinephrine 2 %-1:729642 inj 6 mg 0.3 mL Injection PRN [...] she now has the Astral device at [facility] but has not used. She is willing to start. Use anytime sleepanticipated or planned - ABG today with baseline CO2 62 mm HG - needs new cushion for mask-- request to adapt - will ask adapt to connect oxygen to NIV tubing rather than the machine itself - last seen on 2/3/25 and RVP + coronavirus. Completed ABX and [...] ABG that day AZEEM Duran Pulmonary Medicine [facility] Kymberly MIRANDA [address] [place] [address] documented in this encounter Nursing Notes * [...] 12/15/2024 4:20 PM EDT Office Visit Nephrology [facility] Kymberly MIRANDA [address] [place] [address] Elie Dixon MD [address] [place] [address] 12/23/2024 10:30 AM EDT Office Visit Ophthalmology [facility] [address] [place] [address] Archana Nava MD [address] [place] [address] 12/24/2024 10:30 AM EDT Office Visit Cardiology [facility] [place] [address] [facility] [place] [address] Angela Briggs CRNP [address] [facility] [place] [address] 01/07/2025 12:45 PM EDT Appointment Radiology [facility] Kymberly Zhang [address] [facility] [place] [address] 01/22/2025 1:15 PM EDT Imaging Radiology [facility] [address] [place] [address] 02/09/2025 10:00 AM EDT Office Visit Pulmonary Medicine [facility] Kymberly Vicente [address] [facility] [place] [address] Braxton Elizalde MD [address] [facility] [place] [id number] 03/03/2025 1:00 PM EDT Office Visit Ophthalmology [facility] [address] [place] [address] [place] Gordon MD [address] [address] [address], Nurse Ophthalmology [address] [address] Scheduled Orders Name Type Priority Associated Diagnoses [...] this encounter Medical Devices Implanted Type Area Calcine Furnace Loader Device Identifier Shelf Expiration Date Model / Serial / Lot Cath Drainage 10fr [facility]-10-038 - [id number] Implanted:Qty : 1 on 05/07/2023 at [facility] Right: Abdomen [employer] [id number] 02/15/2026 [facility]-10-03 8 / / [id number] documented as of this encounter Visit Diagnoses Diagnosis Chronic respiratory failure with hypoxia and hypercapnia (HCC)- Primary Sleep apnea, unspecified type Obesity hypoventilation syndrome (HCC) Obesity hypoventilation syndrome documented in this encounter Advance Directives * [...] Power of Attor cristin? No Care Teams Electric Melt Operator Relationship Specialty Start Date End Date Denis Urbina MD [address] [place] [address] PCP - General Family Medicine 04/17/22 documented as of this encounter
--- OUTSIDE RECORDS SUMMARY | 2025-01-09 05:28 | External Medical Summary | Summary of Care ---
Author Name Unknown Organization [facility] Address [address] [place] [address] Phone [phone] Care Team Providers Care Director Of Programming Name Role Phone Denis Urbina MD Primary Care Provider [phone] Reason for Visit * Reason Onset Date Comments Durable Medical Equipment 11/10/2024 Vent i ssues Encounter Details Date Type Department Care Team (Late st Contact Info) Description 11/10/2024 Telephone Pulmonary Medicine [facility] K[place]berly MIRANDA [address] [facility] [place] [address] Shaniqua Jeffery, CYBER DEFENSE ANALYST Durable Medical Equipment (Vent issues) Allergies No known active allergiesdocumented as of [...] 06/27/20 22 Active FreeStyle Maria Luz 2 [place] Device Use as directed . 1 Each 06/27/20 22 Active BD Insulin Syringe U/F 30G X 1/2" 0.3 ML (Insulin Syringe-Needle U-100)Indications: Type 2 diabetes mellitus without complication (HCC),Type 2 diabetes mellitus without complication, with long-term current use of insulin (HCC) INJECT UNDER THE SKIN 4 TIMES A DAY 100 Each 2 06/06/20 23 Active Droplet Pen [place] 31G X 5 MM (Insulin Pen Needle)Indications :Type 2 diabetes mellitus without complication, with long-term current use of insulin (HCC) inject subcutaneously four times a day 1000 Each 06/07/20 23 Active OneTouch UltraSoft LancetsIndications :Type 2 diabetes mellitus without complication, unspecified whether exterminator insulin use (HCC) Use as directed 4 times a day as needed for Other (to check BS). Use up to four times a day as directed 100 Each 10/31/19 24 Active ReliOn Premier Classic Device Use to test blood sugar as directed 12/24/19 24 Active RA Melatonin 1 MG Sublingual Tablet Sublingual (Melatonin)Indicat ions:Insomnia, unspecified type take 1 tablet by mouth at bedtime if needed for insomnia 30 Tablet 12/24/19 24 Active Additional Information Patient not taking.Informant: Patient, Pharmacy, Reported on 11/10/2024 ReliOn Premier Test In Vitro Strip (Glucose Blood) Use to test blood sugar 4 times daily as directed 100 Strip 12/24/19 Active Insulin Glargine Solostar 100 UNIT/ML Subcutaneous Solution Pen-injector (Basaglar KwikPen) Inject 15 units once daily at bedtime. Dx Code E 11.9 15 mL 01/16/20 24 Active Additional Information Patient taking [...] for Cough. 30 Capsule 1 11/10/19 Active Hospital, Clinic, or Other Facility Administered [...] IZ PRN 04/17/2024 04/17/2025 Active lidocaine-epinephrine 2 %-1:572079 inj 6 mgIndications:Moderate nonproliferative diabetic retinopathy of [...] hypercapnia 06/28/2022 01/16/2024 Reactive airway disease 06/28/2022 0412/2023 Rhinovirus infection 06/28/2022 024 Bacterial pneumonia 06/28/2022 [...] yrs 12/08/2014,03/31/2011,02/23 Pneumococcal Conjugate Vacci ne, 20-valent ([id number]) 06/06/2023 Pneumococcal Polysaccharide PPV23 (Pneumovax) 02/10/2011 Seasonal [...] No 01/22/2024 Does the household have a [facility] source of income? (Household - for ages [...] encounter Miscellaneous Notes * Telephone Encounter - Shaniqua Jeffery RRT - 11/10/2024 10:06 AM EST Emailed [facility] about issues with the pt's astral and her needing a new mask documented in this encounter Plan of Treatment Upcoming Encounters Date Type Department Care Team (Late st Contact Info) Description 12/15/2024 4:20 PM EDT [facility] [address] [facility] [place] [address] Elie Dixon MD [address] [facility] [place] [address] 12/23/2024 10:30 AM EDT Office Visit Ophthalmology [facility] [address] [place] [address] Archana Nava MD [address] [place] [address] 12/24/2024 10:30 AM EDT [facility] [address] [place] [address] Angela Briggs CRNP [address] [facility] [place] [address] 01/07/2025 12:45 PM EDT Appointment Radiology [facility] [address] [facility] [place] [address] 01/22/2025 1:15 PM EDT Imaging Radiology [address] [address] 02/09/2025 10:00 AM EDT Office [facility] [address] [facility] [place] [address] Braxton Elizalde MD [address] [place] [address] 03/03/2025 1:00 PM EDT Office Visit Ophthalmology [address] [address] [place] Gordon MD [address] [address] , Nurse Ophthalmology [address] [address] Health Maintenance Due Date Last Done Comments [...] this encounter Medical Devices Implanted Type Area Firer Glost [place]n Device Identifier Shelf Expiration Date Model / Serial / Lot Cath Drainage 10fr [facility]-10-038 - [id number] Implanted:Qty : 1 on 05/07/2023 at [facility] Right: Abdomen [employer] [id number] 02/15/2026 [facility]-10-03 8 / / [id number] documented as of this encounter Advance Directives [...] Power of Attor cristin? No Care Teams Director Of Programming Relationship Specialty Start Date End Date Denis Urbina MD [address] [place] [address] PCP - General Family Medicine 04/17/22 documented as of this encounter
--- OUTSIDE RECORDS SUMMARY | 2025-01-09 05:28 | External Medical Summary | Summary of Care ---
Author Name Unknown Organization [facility] Address [address] [place] [address] Phone [phone] Care Team Providers Care Truck Shop Mechanic Name Role Phone Denis Urbina MD Primary Care Provider + [phone] Reason for Visit * Reason Onset Date Comments Durable Medical Equipment 11/10/2024 mask Encounter Details Date Type Department Care Team (Late st Contact Info) Description 11/10/2024 Telephone Pulmonary Medicine [facility] [place] MIRANDA [facility] [place] [address] Shaniqua Jeffery, TITLE I PARAPROFESSIONAL Durable Medical Equipment (mask) Allergies No known active allergiesdocumented as of [...] 06/27/20 22 Active FreeStyle Maria Luz 2 [place] Device Use as directed . 1 Each 06/27/20 22 Active BD Insulin Syringe U/F 30G X 1/2" 0.3 ML (Insulin Syringe-Needle U-100)Indications: Type 2 diabetes mellitus without complication (HCC),Type 2 diabetes mellitus without complication, with long-term current use of insulin (HCC) INJECT UNDER THE SKIN 4 TIMES A DAY 100 Each 2 06/06/20 23 Active Droplet Pen [place] 31G X 5 MM (Insulin Pen Needle)Indications :Type 2 diabetes mellitus without complication, with long-term current use of insulin (HCC) inject subcutaneously four times a day 1000 Each 06/07/20 23 Active OneTouch UltraSoft LancetsIndications :Type 2 diabetes mellitus without complication, unspecified whether termite treater insulin use (HCC) Use as directed 4 [...] IZ PRN 04/17/2024 04/17/2025 Active lidocaine-epinephrine 2 %-1:033086 inj 6 mgIndications:Moderate nonproliferative diabetic retinopathy of [...] yrs 12/08/2014,03/31/2011,02/23 Pneumococcal Conjugate Vacci ne, 20-valent ([id number]) 06/06/2023 Pneumococcal Polysaccharide PPV23 (Pneumovax) 02/10/2011 Seasonal [...] No 01/22/2024 Does the household have a [facility] source of income? (Household - for [...] Encounter - Shaniqua Jeffery RRT - 11/10/2024 2:48 PM EST Order for new mask sent to [employer] via parachute documented in this encounter Plan of Treatment Upcoming Encounters Date Type Department Care Team (Late st Contact Info) Description 12/15/2024 4:20 PM EDT [facility] [address] [facility] [place] [address] Elie Dixon MD [address] [facility] [place] [address] 12/23/2024 10:30 AM EDT Office Visit Ophthalmology [facility] [address] [place] [address] Archana Nava MD [address] [place] [address] 12/24/2024 10:30 AM EDT [facility] [address] [facility] [place] [address] Angela Briggs CRNP [address] [facility] [place] [address] 01/07/2025 12:45 PM EDT Appointment Radiology [place]ly Pfeiffer [address] [facility] [place] [address] 01/22/2025 1:15 PM EDT Imaging Radiology [facility] [address] [place] [address] 02/09/2025 10:00 AM EDT Office Visit [facility] [address] [facility] [place] [address] Braxton Elizalde MD [address] [place], [place] [address] [address] 03/03/2025 1:00 PM EDT Office Visit Ophthalmology [place] [address] [place] [address] Washington Gordon MD [address] [address] , Nurse Ophthalmology [address] [address] Health Maintenance Due Date Last Done Comments [...] this encounter Medical Devices Implanted Type Area Retail Department Supervisor Device Identifier Shelf Expiration Date Model / Serial / Lot Cath Drainage 10fr [facility]-10-038 - [id number] Implanted:Qty : 1 on 05/07/2023 at [facility] Right: Abdomen [employer] [id number] 02/15/2026 [facility]-10-03 8 / / [id number] documented as of this encounter Advance Directives [...] Power of Attor cristin? No Care Teams Truck Shop Mechanic Relationship Specialty Start Date End Date Denis Urbina MD [address] [place] [address] PCP - General Family Medicine 04/17/22 documented as of this encounter
--- OUTSIDE RECORDS SUMMARY | 2025-01-09 05:29 | External Medical Summary | Summary of Care ---
Author Name Unknown Organization [facility] Address [address] [place] [address] Phone [phone] Care Team Providers Care Trade Analyst Name Role Phone Denis Urbina MD Primary Care Provider + [phone] Reason for Visit * Reason Comments Pulmonary Function Test Encounter Details Date Type Department Care Team (Late st Contact Info) Description 11/10/2024 8:15 AM EST PulmDiagnostic Ancillary Pulmonary Medicine [facility] Kybmerly MIRANDA [address] [facility] [place] [address] Mob, Pft Tech 3 Gw [address] [facility] [place] [id number] COPD, moderate (HCC)*; Chronic respiratory failure with hypoxia and hypercapnia (HCC) Allergies No known active allergiesdocumented as [...] 06/27/20 22 Active FreeStyle Maria Luz 2 [place] Device Use as directed . 1 Each 06/27/20 22 Active BD Insulin Syringe U/F 30G X 1/2" 0.3 ML (Insulin Syringe-Needle U-100)Indications: Type 2 diabetes mellitus without complication (HCC),Type 2 diabetes mellitus without complication, with long-term current use of insulin (HCC) INJECT UNDER THE SKIN 4 TIMES A DAY 100 Each 2 06/06/20 23 Active Droplet Pen [place] 31G X 5 MM (Insulin Pen Needle)Indications [...] IZ PRN 04/17/2024 04/17/2025 Active lidocaine-epinephrine 2 %-1:935301 inj 6 mgIndications:Moderate nonproliferative diabetic retinopathy of [...] yrs 12/08/2014,03/31/2011,02/23 Pneumococcal Conjugate Vacci ne, 20-valent ([id number]) 06/06/2023 Pneumococcal Polysaccharide PPV23 (Pneumovax) 02/10/2011 Seasonal [...] documented in this encounter Progress Notes * Shaniqua Jeffery RRT - 11/10/2024 8:56 AM EST Abg with direct O2 saturation drawn from right radial artery on 4LPM. Positive olinda test. documented in this encounter Plan of Treatment Upcoming Encounters Date Type Department Care Team (Late st Contact Info) Description 12/15/2024 4:20 PM EDT Office Visit [facility] Kymberly MIRANDA [address] [facility] [place] [address] Elie Dixon MD [address] [facility] [place] [address] 12/23/2024 10:30 AM EDT Office Visit Ophthalmology [facility] [address] [place] [address] Archana Nava MD [address] [place] [address] 12/24/2024 10:30 AM EDT [facility] [address] [place] [address] Angela Briggs CRNP [address] [facility] [place] [address] 01/07/2025 12:45 PM EDT [facility] [address] [facility] [place] [address] 01/22/2025 1:15 PM EDT Imaging Radiology [facility] [address] [place] [address] 02/09/2025 10:00 AM EDT Office Visit Pulmonary Medicine [facility], Kymberly Zhang [address] [facility] [place] [address] Braxton Elizalde MD [address] [facility] [place] [address] 03/03/2025 1:00 PM EDT Office Visit Ophthalmology [address] [address] Washington Gordon MD [address] [address] , Nurse Ophthalmology [address] [address] Health Maintenance Due Date Last Done Comments [...] Depression Monitoring 12/19/2024 12/20/2023 HbA1c 04/02/2025 10/03/2024, 080 04/2024, 04/24/2024, Additional history exists GFR 05/03/2025 11/03/2024, 020 11/2024, 10/20/2024, Additional history exists Diabetic Eye Exam 11/04/2025 11/04/2024, , 11/04/2024, Additional history exists O2 ASSESSMENT COMPLETED IN PAST YEAR FOR COPD 11/10/2025 11/10/2024 Lipid Panel 04/24/2029 04/24/2024, 080 09/2023, 12/26/2023, Additional history exists Pap Smear [...] this encounter Medical Devices Implanted Type Area Gas Meter Installer Device Identifier Shelf Expiration Date Model / Serial / Lot Cath Drainage 10fr Rl-10-038 - [id number] Implanted:Qty : 1 on 05/07/2023 at [facility] [address] Right: Abdomen [employer] [id number] 02/15/2026 [facility]-10-03 8 / / [id number] documented as of this encounter Procedures Procedure Name Priority Date/Time Associated Diagnosis Comments BLOOD GAS, ARTERIAL Routine 11/10/2024 8 :49 AM EST Chronic respiratory failure with hypoxia and hypercapnia (HCC) documented in this encounter Results * (ABNORMAL) BLOOD GAS, ARTERIAL (11/10/2024 8:49 AM EST) Temperature 37.0 C 11/10/2024 9:26 AM EST LABORATORY [facility] pH, Arterial 7.380 7.350 - 7.450 units 11/10/2024 9:26 AM EST LABORATORY [facility] pCO2, Arterial 62.0(HH) 35.0 - 45.0 mmHg 11/10/2024 9:26 AM EST LABORATORY [facility] pO2, Arterial 100.0 75.0 - 100.0 mmHg 11/10/2024 9:26 AM EST LABORATORY [facility] Base Excess, Arterial 8.9(H) -2.0 - 2.0 mmol/L 11/10/2024 9:26 AM EST LABORATORY [facility] HGB 13.0 12.0 - 15.3 g/dL 11/10/2024 9:26 AM EST LABORATORY [facility] Oxyhemoglobin, Arterial 96.1 94.0 - 99.0 % total Hgb 11/10/2024 9:26 AM EST LABORATORY [facility] Carboxyhemoglob in, Whole Blood 1.0 <=1.5 % total Hgb 11/10/2024 9:26 AM EST LABORATORY [facility] Comment:Smokers: 0-9.0 % Methemoglobin, Whole Blood 0.4 <=1.5 % total Hgb 11/10/2024 9:26 AM EST LABORATORY [facility] Reduced Hemoglobin, Arterial 2.5 0.0 - 5.0 % total Hgb 11/10/2024 9:26 AM EST LABORATORY [facility] O2 Content, Arterial 17.7 15.0 - 24.0 %vol 11/10/2024 9:26 AM EST LABORATORY [facility] FiO2 Not Provided % 11/10/2024 9:26 AM EST LABORATORY [facility] O2 Flow, Arterial 4 LPM L/min 11/10/2024 9:26 AM EST LABORATORY [facility] Bicarbonate, Whole Blood 35.8(H) 23.0 - 31.0 mmol/L 11/10/2024 9:26 AM EST LABORATORY [facility] Blood Arterial blood specimen / Unknown Arterial Puncture / Unknown 11/10/2024 8:49 AM EST 11/10/2024 9:20 AM EST us Johanny GANN LAB BLOOD ORDERABLES Final R esult LABORATORY [facility] [address] [facility] [place] [address] documented in this encounter Visit Diagnoses Diagnosis COPD, moderate (HCC)- Primary Chronic airway obstruction, not elsewhere classified Chronic respiratory failure with hypoxia and hypercapnia (HCC) documented in this encounter Advance Directives [...] Power of Attor cristin? No Care Teams Trade Analyst Relationship Specialty Start Date End Date Denis Urbina MD [address] [place] [address] PCP - General Family Medicine 04/17/22 documented as of this encounter
--- OUTSIDE RECORDS SUMMARY | 2025-01-09 05:29 | External Medical Summary ---
Author Name Unknown Address Unknown Organization K01:LABORATORY [facility] [place] [facility] [address] [facility] [address] Laboratory Report Ordering Provider Test Date Status NAYANA SANTOS 11/03/2024 05:04:00 Final Observation Date Value Abnormality Reference (Units ) Status BUN 11/03/2024 05:04:00 66 Above high normal 6-20 (mg/dL) Final Creatinine 11/03/2024 05:04:00 1.5 Above high normal 0.5-1.0 (mg/dL) Final Glomerular filtration rate/1.73 sq M.predicted [Volume Rate/Area] in Serum, Plasma or Blood by Creatinine-based formula (CKD-EPI) 11/03/2024 05:04:00 38 Below low normal >=60 (mL/min) Final eGFR is calculated based on the CKD-EPI 2020 equation. Sodium 11/03/2024 05:04:00 136 135-146 (m mol/L) Final Potassium 11/03/2024 05:04:00 4.4 3.5-5.1 (m mol/L) Final Cl 11/03/2024 05:04:00 91 Below low normal 98- 107 (mmol/L) Final CO2 11/03/2024 05:04:00 38 Above high normal 22 -32 (mmol/L) Final Anion gap 11/03/2024 05:04:00 7 7-15 (mmol /L) Final Glucose 11/03/2024 05:04:00 231 Above high normal 70 -120 (mg/dL) Final Calcium 11/03/2024 05:04:00 8.4 8.4-10.2 ( mg/dL) Final Performing Location [facility] [place] [facility] [address] [facility] [address]
--- OUTSIDE RECORDS SUMMARY | 2025-01-09 05:29 | External Medical Summary | Summary of Care ---
Author Name Unknown Organization [facility] Address [address] [place] [address] Phone [phone] Care Team Providers Care Grain Elevator Operator Name Role Phone Denis Urbina MD Primary Care Provider + [phone] Encounter Details Date Type Department Care Team (Late st Contact Info) Description 11/03/2024 Orders Only Lab Mobile Phlebotomy [facility] [address] [place] [address] Franki Vidal, DO [address] [place] [address] Heart failure, diastolic, with acute decompensation (HCC)*; Type 2 respiratory failure (HCC) Allergies No known active allergiesdocumented as of this encounter (statuses as of 11/03/2024) Medications Albuterol Sulfate (2.5 MG/3ML) 0.083% Inhalation [...] 06/27/20 22 Active FreeStyle Maria Luz 2 [place] Device Use as directed . 1 Each 06/27/20 22 Active BD Insulin Syringe U/F 30G X 1/2" 0.3 ML (Insulin Syringe-Needle U-100)Indications: Type 2 diabetes mellitus without complication (HCC),Type 2 diabetes mellitus without complication, with long-term current use of insulin (HCC) INJECT UNDER THE SKIN 4 TIMES A DAY 100 Each 2 06/06/20 23 Active Droplet Pen [place] 31G X 5 MM (Insulin Pen Needle)Indications :Type 2 diabetes mellitus without complication, with long-term current use of insulin (HCC) inject subcutaneously four times a day 1000 Each 06/07/20 23 Active OneTouch UltraSoft LancetsIndications :Type 2 diabetes mellitus without complication, unspecified whether prison insulin use (HCC) Use as directed 4 [...] Patient not taking.Informant: Patient, Pharmacy, Reported on 10/27/2024 ReliOn Premier Test In Vitro Strip (Glucose [...] at bedtime., Informant: Patient, Pharmacy, Reported on 10/27/2024 NovoLOG FlexPen 100 UNIT/ML Subcutaneous Solution Pen-injector [...] 1 06/04/20 24 Active Additional Information Patient taking differently:1 Drop Ophthalmic DAILY NOON,Right eye, Informant: Patient, Pharmacy, Reported on 10/27/2024 Cyanocobalamin 1000 MCG Sublingual Tablet SublingualIndicati ons:B12 [...] Active Additional Information Patient not taking.Reported on 10/27/2024 Ammonium Lactate 12 % External Cream (Lac-Hydrin) [...] Severe. Ongoing therapy 45 Tablet 10/10/19 Active Additional Information Patient not taking.Reported on 10/27/2024 Hospital, Clinic, or Other Facility Administered Medication [...] IZ PRN 04/17/2024 04/17/2025 Active lidocaine-epinephrine 2 %-1:157200 inj 6 mgIndications:Moderate nonproliferative diabetic retinopathy of [...] as of this encounter (statuses as of 11/03/2024) Active Problems Problem Noted Date Diagnosed Date [...] as of this encounter (statuses as of 11/03/2024) Resolved Problems Problem Noted Date Diagnosed Date [...] as of this encounter (statuses as of 11/03/2024) Immunizations Name Administration Dates Next Due Covid-19 Ad26, Single Dose ([place]/J&J) 021 Hepatitis B, 20+ yrs 12/08/2014,03/31/2011,02/23 Pneumococcal Conjugate Vacci ne, 20-valent ([id number]) 06/06/2023 Pneumococcal Polysaccharide PPV23 (Pneumovax) 02/10/2011 Seasonal [...] Assessment Author Yes 10/03/2024 7:48 PM Lokesh Church, JUANA * Do you have difficulty dressing [...] Care Team (Late st Contact Info) Description 11/04/2024 9:00 AM EST Office Visit Ophthalmology [facility] [address] [place] [address] Washington Gordon MD [address] [address] 11/10/2024 8:00 AM EST [facility] [address] [place] [address] Braxton Elizalde MD 25 [place] [address] 12/15/2024 4:20 PM EDT [facility] [address] [place] [address] Elie Dixon MD [address] [facility] [place] [address] 12/23/2024 10:30 AM EDT Office Visit Ophthalmology [facility] [address] [place] [address] Archana Nava MD [address] [place] [address] 12/24/2024 10:30 AM EDT [facility] [address] [place] [address] Dmitriylalo Angela Iqra, MANAGER PACKAGING [address] [facility] [address] 01/22/2025 1:15 PM EDT Imaging Radiology [facility] [address] [place] [address] Scheduled Orders Name Type Priority Associated Diagnoses Orde r Schedule CBC Lab Routine Heart failure, diastolic, with acute decompensation (HCC) Type 2 respiratory failure (HCC) Expected: 11/03/2024, Expires: 11/03/2025 BASIC METABOLIC PANEL Lab Routine Heart failure, diastolic, with acute decompensation (HCC) Type 2 respiratory failure (HCC) Expected: 11/03/2024, Expires: 11/03/2025 Health Maintenance Due Date Last Done Comments [...] 08/0 04/2024, 04/24/2024, Additional history exists GFR 04/26/2025 10/27/2024, 09/25, 10/13/2024, Additional history exists Diabetic Eye Exam 06/04/2025 06/04/2024, , 06/04/2024, Additional history exists O2 ASSESSMENT COMPLETED IN PAST YEAR FOR COPD 10/27/2025 10/27/2024 Lipid Panel 04/24/2029 04/24/2024, 08/0 09/2023, 12/26/2023, [...] this encounter Medical Devices Implanted Type Area Sock Liner Device Identifier Shelf Expiration Date Model / Serial / Lot Cath Drainage 10fr [facility]-10-038 - [id number] Implanted:Qty : 1 on 05/07/2023 at [facility] Right: Abdomen [employer] [id number] 02/15/2026 [facility]-10-03 8 / / [id number] documented as of this encounter Visit Diagnoses Diagnosis Heart failure, diastolic, with acute decompensation (HCC)- Primary Acute on chronic diastolic heart failure Type 2 respiratory failure (HCC) Acute respiratory failure documented in this encounter Advance Directives * [...] Power of Attor cristin? No Care Teams Grain Elevator Operator Relationship Specialty Start Date End Date Denis Urbina MD [address] [place] [address] PCP - General Family Medicine 04/17/22 documented as of this encounter
--- OUTSIDE RECORDS SUMMARY | 2025-01-09 05:29 | External Medical Summary | Summary of Care ---
Author Name Unknown Organization [facility] Address [address] [place] [address] Phone [phone] Care Team Providers Care Neonatologist Name Role Phone Denis Urbina MD Primary Care Provider + [phone] Reason for Visit * Reason Onset Date Comments Follow Up 10/29/2024 Encounter Details Date Type Department Care Team ([facility] st Contact Info) Description 10/29/2024 Telephone Pulmonary Medicine [address] [address] Braxton Elizalde MD [address] [place] [id number] Follow Up Allergies No known active allergiesdocumented as of this encounter (statuses as of 10/31/2024) Medications Albuterol Sulfate (2.5 MG/3ML) 0.083% Inhalation [...] 06/27/20 22 Active FreeStyle Maria Luz 2 [place] Device Use as directed . 1 Each 06/27/20 22 Active BD Insulin Syringe U/F 30G X 1/2" 0.3 ML (Insulin Syringe-Needle U-100)Indications: Type 2 diabetes mellitus without complication (HCC),Type 2 diabetes mellitus without complication, with long-term current use of insulin (HCC) INJECT UNDER THE SKIN 4 TIMES A DAY 100 Each 2 06/06/20 23 Active Droplet Pen [place] 31G X 5 MM (Insulin Pen Needle)Indications :Type 2 diabetes mellitus without complication, with long-term current use of insulin (HCC) inject subcutaneously four times a day 1000 Each 06/07/20 23 Active OneTouch UltraSoft LancetsIndications :Type 2 diabetes mellitus without complication, unspecified whether intermediate insulin use (HCC) Use as directed 4 [...] mL 06/04/20 24 Active Additional Information Patient taking [...] IZ PRN 04/17/2024 04/17/2025 Active lidocaine-epinephrine 2 %-1:278222 inj 6 mgIndications:Moderate nonproliferative diabetic retinopathy of [...] as of this encounter (statuses as of 10/31/2024) Active Problems Problem Noted Date Diagnosed Date [...] as of this encounter (statuses as of 10/31/2024) Resolved Problems Problem Noted Date Diagnosed Date [...] as of this encounter (statuses as of 10/31/2024) Immunizations Name Administration Dates Next Due Covid-19 Ad26, Single Dose ([place]/J&J) 021 Hepatitis B, 20+ yrs 12/08/2014,03/31/2011,02/23 Pneumococcal Conjugate Vacci ne, 20-valent ([id number]) 06/06/2023 Pneumococcal Polysaccharide PPV23 (Pneumovax) 02/10/2011 Seasonal [...] ages 0-17 years) Not on file 10/03/2024 Are you homeless or worried that [...] encounter Miscellaneous Notes * Telephone Encounter - Braxton Elizalde MD - 10/30/2024 5:27 PM EST Noted seasonal her virus infection. Noted our nursing staff checked in on the patient. * Telephone Encounter - Luis Fernando Atkinson RN - 10/29/2024 11:51 AM EST Called pt fdc and spoke with pt caregiver TERESITA Dean. Dianne stated that pt has been using nebulizer as prescribed and is doing well after visit. Dianne stated pt has not had increased sob or wheezing. Pt does still have occasional dry cough. Dr. Elizalde: Message sent as pt update documented in this encounter Plan of Treatment Upcoming Encounters Date Type Department Care Team (Late st Contact Info) Description 11/04/2024 9:00 AM EST Office Visit Ophthalmology [facility] [address] [place] [address] Washington Gordon MD [address] [place] [address] [place] [address] 11/10/2024 8:00 AM EST Office Visit Pulmonary Medicine [facility] Kymberly Zhang [address] [facility] [place] [address] Braxton Elizalde MD 25 [facility] [place] [address] 12/15/2024 4:20 PM EDT Office Visit Nephrology [facility] [address] [place] [place] [address] Elie Dixon MD [address] [place] [address] 12/23/2024 10:30 AM EDT Office Visit Ophthalmology [facility] [address] [place] [address] Archana Nava MD [address] [place] [address] 12/24/2024 10:30 AM EDT Office Visit Cardiology [facility] [address] [place] [address] Angela Briggs CRNP [address] [facility] [address] 01/22/2025 1:15 PM EDT Imaging Radiology [facility] [address] [place], [place] [address] Health Maintenance Due Date Last Done Comments [...] this encounter Medical Devices Implanted Type Area Shredded Filler Hopper Feeder Device Identifier Shelf Expiration Date Model / Serial / Lot Cath Drainage 10fr [facility]-10-038 - [id number] Implanted:Qty : 1 on 05/07/2023 at [facility] Right: Abdomen [employer] [id number] 02/15/2026 [facility]-10-03 8 / / [id number] documented as of this encounter Advance Directives [...] Power of Attor cristin? No Care Teams Neonatologist Relationship Specialty Start Date End Date Denis Urbina MD [address] [place] [address] PCP - General Family Medicine 04/17/22 documented as of this encounter
--- OUTSIDE RECORDS SUMMARY | 2025-01-09 05:29 | External Medical Summary | Summary of Care ---
Author Name Unknown Organization [facility] Address [address] [place] [address] Phone [phone] Care Team Providers Care Roving Carrier Name Role Phone Denis Urbina MD Primary Care Provider + [phone] Reason for Visit * Reason Onset Date Comments No Show 10/31/2024 [facility] No Show Auto mation Encounter Details Date Type Department Care Team (Late st Contact Info) Description 10/31/2024 Telephone Ophthalmology, [facility] [address] [place] [address] Collin Ruiz MD [address] [facility] [address] [place] [address] No Show ([place] No Show Automation) Allergies No known active [...] 06/27/20 22 Active FreeStyle Maria Luz 2 [place] Device Use as directed . 1 Each 06/27/20 22 Active BD Insulin Syringe U/F 30G X 1/2" 0.3 ML (Insulin Syringe-Needle U-100)Indications: Type 2 diabetes mellitus without complication (HCC),Type 2 diabetes mellitus without complication, with long-term current use of insulin (HCC) INJECT UNDER THE SKIN 4 TIMES A DAY 100 Each 2 06/06/20 23 Active Droplet Pen [place] 31G X 5 MM (Insulin Pen Needle)Indications :Type 2 diabetes mellitus without complication, with long-term current use of insulin (HCC) inject subcutaneously four times a day 1000 Each 06/07/20 23 Active OneTouch UltraSoft LancetsIndications :Type 2 diabetes mellitus without complication, unspecified whether usp insulin use (HCC) Use as directed 4 [...] IZ PRN 04/17/2024 04/17/2025 Active lidocaine-epinephrine 2 %-1:555107 inj 6 mgIndications:Moderate nonproliferative diabetic retinopathy of [...] yrs 12/08/2014,03/31/2011,02/23 Pneumococcal Conjugate Vacci ne, 20-valent ([id number]) 06/06/2023 Pneumococcal Polysaccharide PPV23 (Pneumovax) 02/10/2011 Seasonal [...] encounter Miscellaneous Notes * Telephone Encounter - [facility], No Show - 10/31/2024 8:11 AM EST Dear Meera Mcgraw, Looks like you missed an appointment with COLLIN RUIZ on 10/28/2024 at 01:30 PM. If you haven't already rescheduled, you have a couple of options: Reschedule in [employer]/scheduling Call us at [phone] Can't make a future appointment? Cancel and let someone else have your spot! It's easy to do via Loccie or by calling us. Thanks for trusting [facility] with your care. We hope to see you back in our office soon. Sincerely, COLLIN RUIZ documented in this encounter Plan of Treatment Upcoming Encounters Date Type Department Care Team (Late st Contact Info) Description 11/04/2024 9:00 AM EST Office Visit Ophthalmology [facility] [address] [place] [address] Collin Ruiz MD [address] [place] [address] [place] [address] 11/10/2024 8:00 AM EST Office Visit Pulmonary Medicine [facility] [place] MIRANDA [address] [facility] [place] [address] Braxton Elizalde MD [address] [place] [address] 12/15/2024 4:20 PM EDT Office Visit Nephrology [facility] [address] [facility] [place] [address] Elie Dixon MD [address] [place] [address] 12/23/2024 10:30 AM EDT Office Visit Ophthalmology [facility] [address] [place] [address] Archana Nava MD [address] [place] [address] 12/24/2024 10:30 AM EDT Office Visit Cardiology [facility] [address] [place] [address] Angela Briggs CRNP [address] [place] [address] 01/22/2025 1:15 PM EDT Imaging Radiology [facility] [address] [place] [address] Health Maintenance Due Date Last Done Comments [...] 23, 03/27/2023, 02/17/2010 COVID-19 Vaccine (2 - 2023-25 season) 2024 06/18/2021 Influenza Vaccine (FLU shot) [...] this encounter Medical Devices Implanted Type Area Biogeographer Device Identifier Shelf Expiration Date Model / Serial / Lot Cath Drainage 10fr [facility]-10-038 - [id number] Implanted:Qty : 1 on 05/07/2023 at [facility] Right: Abdomen [employer] [id number] 02/15/2026 [facility]-10-03 8 / / [id number] documented as of this encounter Advance Directives [...] Power of Attor cristin? No Care Teams Roving Carrier Relationship Specialty Start Date End Date Denis Urbina MD [address] [place] [address] PCP - General Family Medicine 04/17/22 documented as of this encounter
--- OUTSIDE RECORDS SUMMARY | 2025-01-09 05:29 | External Medical Summary ---
Author Name Unknown Address Unknown Organization K2I:[facility] - [address] [place] [address] Laboratory Report Ordering Provider Test Date Status TONJA HOLLAND 11/10/2024 08:49:24 Final Observation Date Value Abnormality Reference (Units) Status Body temperature 11/10/2024 08:49:24 37.0 (C) Final pH of Arterial blood 11/10/2024 08:49:24 7.380 7.350-7.450 (units) Final Carbon dioxide [Partial pressure] in Arterial blood 11/10/2024 08:49:24 62.0 Above upper panic limits 35.0-45.0 (mmHg) Final Oxygen [Partial pressure] in Arterial blood 11/10/2024 08:49:24 100.0 75.0-100.0 (mmHg) Final Base excess, Arterial 11/10/2024 08:49:24 8.9 Above high normal -2.0-2.0 (mmol/L) Final Hemoglobin [Mass/volume] in Blood by Oximetry 11/10/2024 08:49:24 13.0 12.0-15.3 (g/dL) Final Oxyhemoglobin, Arterial (FO2HB) 11/10/2024 08:49:24 96.1 94.0-99.0 (% total Hgb) Final Carboxyhemoglobin 11/10/2024 08:49:24 1.0 <=1.5 (% total Hgb) Final Smokers: 0-9.0 % Methemoglobin 11/10/2024 08:49:24 0.4 <=1.5 (% total Hgb) Final Deoxyhemoglobin/Hemog lobin.total in Arterial blood 11/10/2024 08:49:24 2.5 0.0-5.0 (% total Hgb) Final Oxygen content in Arterial blood 11/10/2024 08:49:24 17.7 15.0-24.0 (%vol) Final Oxygen/Total gas setting [Volume Fraction] Ventilator 11/10/2024 08:49:24 Not Provided (%) Final O2 FLOW, ARTERIAL - [facility] 11/10/2024 08:49:24 4 LPM (L/min) Final Bicarbonate, Venous, POC (i-STAT) 11/10/2024 08:49:24 35.8 Above high normal 23.0-31.0 (mmol/L) Final Performing Location LABORATORY [address] [place] [address]
--- OUTSIDE RECORDS SUMMARY | 2025-01-09 05:29 | External Medical Summary | Summary of Care ---
Author Name Unknown Organization [facility] Address [address] [place] [address] Phone [phone] Care Team Providers Care Gamma Facilities Operator Name Role Phone Denis Urbina MD Primary Care Provider + [phone] Reason for Visit * Reason Comments Follow Up Encounter Details Date Type Department Care Team (Latest Contact Info) Description 11/04/2024 9:00 AM EST Office Visit Ophthalmology [facility] [address] [place] [address] Washington Gordon MD [address] [place] [address] Moderate nonproliferative diabetic retinopathy of both eyes with macular edema associated with type 2 diabetes mellitus (HCC)* Allergies No known active allergiesdocumented as of this encounter (statuses as of 11/04/2024) Medications Albuterol Sulfate (2.5 MG/3ML) 0.083% Inhalation [...] 06/27/20 22 Active FreeStyle Maria Luz 2 Raymond Device Use as directed . 1 Each 06/27/20 22 Active BD Insulin Syringe U/F 30G X 1/2" 0.3 ML (Insulin Syringe-Needle U-100)Indications: Type 2 diabetes mellitus without complication (HCC),Type 2 diabetes mellitus without complication, with long-term current use of insulin (HCC) INJECT UNDER THE SKIN 4 TIMES A DAY 100 Each 2 06/06/20 23 Active Droplet Pen [place] 31G X 5 MM (Insulin Pen Needle)Indications [...] not taking.Informant: Patient, Pharmacy, Reported on 11/04/2024 ReliOn Premier Test In Vitro Strip (Glucose [...] at bedtime., Informant: Patient, Pharmacy, Reported on 11/04/2024 NovoLOG FlexPen 100 UNIT/ML Subcutaneous Solution Pen-injector [...] Additional Information Patient not taking.Reported on 11/04/2024 Hospital, Clinic, or Other Facility Administered Medication [...] IZ PRN 04/17/2024 04/17/2025 Active lidocaine-epinephrine 2 %-1:682165 inj 6 mgIndications:Moderate nonproliferative diabetic retinopathy of [...] as of this encounter (statuses as of 11/04/2024) Active Problems Problem Noted Date Diagnosed Date [...] as of this encounter (statuses as of 11/04/2024) Resolved Problems Problem Noted Date Diagnosed Date [...] as of this encounter (statuses as of 11/04/2024) Immunizations Name Administration Dates Next Due Covid-19 Ad26, Single Dose ([place]/J&J) 021 Hepatitis B, 20+ yrs 12/08/2014,03/31/2011,02/23 Pneumococcal Conjugate Vacci ne, 20-valent ([id number]) 06/06/2023 Pneumococcal Polysaccharide PPV23 (Pneumovax) 02/10/2011 Seasonal [...] 11/04/2024 10:[address] [place] [address] Weekends, holidays or after 5PM ask for [...] Gordon MD - 11/04/2024 9:55 AM EST [facility] Visit Nursing Notes: Nicky Priest TECH 11/04/24 0943 Signed Per the [place] Dept of Health: Flu and pneumonia vaccine [...] can be found in ophth exam. Serjio Quinteros TECH 11/04/24 0995 Signed OCT image(s) of both eyes acquired and filed/scanned into chart. Referring Provider: Betina Carty OD Last [facility] Appt Date: Visit date not [...] Stability Do you currently live in a fdc or have no steady place to sleep [...] Acute respiratory failure with hypoxia and hypercapnia ([facility]) 06/19/2022 Chronic venous hypertension with ulcer ([facility]) 05/05/2022 Controlled substance agreement signed 01/28/2017 COPD exacerbation ([facility]) 12/26/2015 COPD, severity to be determined ([facility]) 12/26/2015 Diabetic retinopathy of right eye associated with type 2 diabetes mellitus ([facility]) 06/08/2021 Dyslipidemia 12/26/2015 Dyslipidemia, goal to be determined Gastroesophageal reflux disease without esophagitis 05/04/2023 Heart failure, diastolic, with acute decompensation ([facility]) 06/19/2022 Heart failure, diastolic, with acute decompensation ([facility]) 2023-10-28 Adding I50.33-Heart failure, diastolic, with acute decompensation ([facility]) Dx to History HTN, goal below 140/90 11/07/2014 HTN, goal to be determined Hypoxia 12/26/2015 Influenza A 12/29/2015 Kidney disease, chronic, stage III (GFR 30-59 ml/min) ([facility]) 06/28/2022 Major depressive disorder 07/15/2007 ICD-10 update of inactive term Obesity hypoventilation syndrome ([facility]) 06/28/2022 Obesity, BMI not known Personal history of colonic polyps PPD positive Restless leg syndrome Right abducens nerve palsy 06/19/2022 Sleep apnea SOB (shortness of breath) 12/26/2015 T2DM (type 2 diabetes mellitus) ([facility]) dx age 55 Type 2 diabetes mellitus with diabetic polyneuropathy, with long-term current use of insulin ([facility]) 12/10/2019 Past Surgical History: Procedure Laterality Date [...] performed by Scotty Pearson DO at ENDOSCOPY [facility] FLUORESCEIN ANGIOGRAPHY MULTIFRAME 01/12/2017 OD > OS / Dr. Brown FX/DIS,RADIAL,OPN,INTRAARTIC,INT FIX,[address] Savage INJECTION OF EYE DRUG Bilateral 07/15/2024 Eylea OU # 3 Dr Gordon IR ASPIRATION ABSCESS/COLLECTION 05/07/2023 IR PROCEDURE NOT PERFORMED DOCUMENTATION ONLY 05/07/2023 LAPAROSCOPY;APPENDECTOMY N/A 01/28/2017 LAPAROSCOPIC APPENDECTOMY performed by West Newell MD at OR [facility] PARTIAL REMOVAL OF COLON 2000 [...] 1 Each 0 FreeStyle Maria Luz 2 Raymond Device Use as directed . 1 Each 0 BD Insulin Syringe U/F 30G X 1/2" 0.3 ML (Insulin Syringe-Needle U-100) INJECT UNDER THE SKIN 4 TIMES A DAY 100 Each 2 Droplet Pen [place] 31G X 5 MM (Insulin Pen Needle) [...] 2 mg at 07/15/24 0901 lidocaine-epinephrine 2 %-1:192075 inj 6 mg 0.3 mL Injection PRN [...] resolved Vessels Normal Normal Periphery DBH DBH ASSESSMENT/PLAN Retinal edema (Primary) -Pt LTFU x [...] - 11/04/2024 9:33 AM EST Per the [place] Dept of Health: Flu and pneumonia vaccine [...] Team (Late st Contact Info) Description 11/10/2024 8:00 AM EST Office Visit Pulmonary Medicine [facility] [place] [address]DA [address] [facility] [place] [address] Braxton Elizalde MD [address] [place] [address] [place] [address] 12/15/2024 4:20 PM EDT Office Visit Nephrology [facility] [place] MIRANDA [address] [place] [address] Elie Dixon MD [address] [place] [address] 12/23/2024 10:30 AM EDT Office Visit Ophthalmology [address] [address] Archana Nava MD [address] [place] [address] 12/24/2024 10:30 AM EDT Office Visit Cardiology [facility] [place] [address] [place] [address] Angela Briggs, AZEEM [address] [place] [address] 01/22/2025 1:15 PM EDT Imaging Radiology [address] [address] 03/03/2025 1:00 PM EDT Office Visit Ophthalmology [address] [address] Washington Gordon MD [address] [place] [address] [address], Nurse Ophthalmology [address] [address] Health Maintenance Due Date Last Done Comments [...] 11/03/2024, 02/0 11/2024, 10/20/2024, Additional history exists O2 ASSESSMENT COMPLETED IN PAST YEAR FOR COPD 10/27/2025 10/27/2024 Diabetic Eye Exam 11/04/2025 11/04/2024, , 11/04/2024, Additional history exists Lipid Panel 04/24/2029 04/24/2024, 08/0 09/2023, 12/26/2023, [...] this encounter Medical Devices Implanted Type Area Ground Wirer Device Identifier Shelf Expiration Date Model / Serial / Lot Cath Drainage 10fr [facility]-10-038 - [id number] Implanted:Qty : 1 on 05/07/2023 at [facility] Right: Abdomen [employer] [id number] 02/15/2026 [facility]-10-03 8 / / [id number] documented as of this encounter Visit Diagnoses [...] 2 mg, Intravitreal, PRN Other, Starting on Tahmina 04/17/24 at 1114, Until Sun04/17/25 at 1113, For [...] 2 mg, Intravitreal, PRN Other, Starting on Tahmina 04/17/24 at 1114, Until Sun04/17/25 at 1113, For [...] 2 mg E ye Right lidocaine-epinephrine 2 %-1:367306 inj 6 mg 6 mg (0.3 mL), Injection, PRN Other, Starting on Tahmina 04/17/24 at 1114, Until Sun04/17/25 at 1113, For [...] Power of Attor cristin? No Care Teams Gamma Facilities Operator Relationship Specialty Start Date End Date Denis Urbina MD [address] [place] [address] PCP - General Family Medicine 04/17/22 documented as of this encounter
--- OUTSIDE RECORDS SUMMARY | 2025-01-09 05:29 | External Medical Summary | Summary of Care ---
Author Name Unknown Organization [facility] Address [address] [place] [address] Phone [phone] Care Team Providers Care Gasoline Tractor Operator Name Role Phone Denis Urbina MD Primary Care Provider + [phone] Reason for Visit * Reason Comments Follow Up Encounter Details Date Type Department Care Team (Latest Contact Info) Description 11/04/2024 9:00 AM EST Office Visit Ophthalmology [facility] [address] [place] [address] Washington Gordon MD [address] [place] [address] Moderate nonproliferative diabetic retinopathy of [...] 06/27/20 22 Active FreeStyle Maria Luz 2 [place] Device Use as directed . 1 Each 06/27/20 22 Active BD Insulin Syringe U/F 30G X 1/2" 0.3 ML (Insulin Syringe-Needle U-100)Indications: Type 2 diabetes mellitus without complication (HCC),Type 2 diabetes mellitus without complication, with long-term current use of insulin (HCC) INJECT UNDER THE SKIN 4 TIMES A DAY 100 Each 2 06/06/20 23 Active Droplet Pen [place] 31G X 5 MM (Insulin Pen Needle)Indications :Type 2 diabetes mellitus without complication, with long-term current use of insulin (HCC) inject subcutaneously four times a day 1000 Each 06/07/20 23 Active OneTouch UltraSoft LancetsIndications :Type 2 diabetes mellitus without complication, unspecified whether residential insulin use (HCC) Use as directed 4 [...] IZ PRN 04/17/2024 04/17/2025 Active lidocaine-epinephrine 2 %-1:975253 inj 6 mgIndications:Moderate nonproliferative diabetic retinopathy of [...] yrs 12/08/2014,03/31/2011,02/23 Pneumococcal Conjugate Vacci ne, 20-valent ([id number]) 06/06/2023 Pneumococcal Polysaccharide PPV23 (Pneumovax) 02/10/2011 Seasonal [...] 11/04/2024 10:[address] [place] [address] Weekends, holidays or after 5PM ask for [...] Gordon MD - 11/04/2024 9:55 AM EST [facility] Visit Nursing Notes: Nicky Priest TECH 11/04/24 0943 Signed Per the [place] Dept of Health: Flu and pneumonia vaccine [...] in ophth exam. Serjio Quinteros TECH 11/04/24 0966 Signed OCT image(s) of both eyes acquired and filed/scanned into chart. Referring Provider: Betina Carty OD Last [facility] Appt Date: Visit date [...] Stability Do you currently live in a senior care or have no steady place to sleep [...] Acute respiratory failure with hypoxia and hypercapnia ([facility]) 06/19/2022 Chronic venous hypertension with ulcer ([facility]) 05/05/2022 Controlled substance agreement signed 01/28/2017 COPD exacerbation ([facility]) 12/26/2015 COPD, severity to be determined ([facility]) 12/26/2015 Diabetic retinopathy of right eye associated with type 2 diabetes mellitus ([facility]) 06/08/2021 Dyslipidemia 12/26/2015 Dyslipidemia, goal to be determined Gastroesophageal reflux disease without esophagitis 05/04/2023 Heart failure, diastolic, with acute decompensation ([facility]) 06/19/2022 Heart failure, diastolic, with acute decompensation ([facility]) 2023-10-28 Adding I50.33-Heart failure, diastolic, with acute decompensation ([facility]) Dx to History HTN, goal below 140/90 11/07/2014 HTN, goal to be determined Hypoxia 12/26/2015 Influenza A 12/29/2015 Kidney disease, chronic, stage III (GFR 30-59 ml/min) ([facility]) 06/28/2022 Major depressive disorder 07/15/2007 ICD-10 update of inactive term Obesity hypoventilation syndrome ([facility]) 06/28/2022 Obesity, BMI not known Personal history of colonic polyps PPD positive Restless leg syndrome Right abducens nerve palsy 06/19/2022 Sleep apnea SOB (shortness of breath) 12/26/2015 T2DM (type 2 diabetes mellitus) ([facility]) dx age 55 Type 2 diabetes mellitus with diabetic polyneuropathy, with long-term current use of insulin ([facility]) 12/10/2019 Past Surgical History: Procedure Laterality Date [...] performed by Scotty Pearson DO at ENDOSCOPY [facility] FLUORESCEIN ANGIOGRAPHY MULTIFRAME 01/12/2017 OD > OS / Dr. Brown FX/DIS,RADIAL,OPN,INTRAARTIC,INT FIX,[address] Savage INJECTION OF EYE DRUG Bilateral 07/15/2024 Eylea OU # 3 Dr Gordon IR ASPIRATION ABSCESS/COLLECTION 05/07/2023 IR PROCEDURE NOT PERFORMED DOCUMENTATION ONLY 05/07/2023 LAPAROSCOPY;APPENDECTOMY N/A 01/28/2017 LAPAROSCOPIC APPENDECTOMY performed by West Newell MD at OR [facility] PARTIAL REMOVAL OF COLON 2000 left [...] 1 Each 0 FreeStyle Maria Luz 2 [employer] [place] Device Use as directed . 1 Each 0 BD Insulin Syringe U/F 30G X 1/2" 0.3 ML (Insulin Syringe-Needle U-100) INJECT UNDER THE SKIN 4 TIMES A DAY 100 Each 2 Droplet Pen [place] 31G X 5 MM (Insulin Pen Needle) [...] 2 mg at 07/15/24 0901 lidocaine-epinephrine 2 %-1:542596 inj 6 mg 0.3 mL Injection PRN [...] - 11/04/2024 9:33 AM EST Per the [place] Dept of Health: Flu and pneumonia vaccine [...] 8:00 AM EST Office Visit Pulmonary Medicine [facility] [place] [address]IRANDA [address] [facility] [place] [address] Braxton Elizalde MD [address] [place] [address] [place] [address] 12/15/2024 4:20 PM EDT Office Visit Nephrology [facility] [place] [address]IRANDA [address] [place] [address] Elie Dixon MD [address] [place] [address] 12/23/2024 10:30 AM EDT Office Visit Ophthalmology [address] [address] Archana Nava MD [address] [place] [address] 12/24/2024 10:30 AM EDT Office Visit Cardiology [facility] [place] [address] [place] [address] Angela Briggs, AZEEM [address] [facility] [place] [address] 01/22/2025 1:15 PM EDT Imaging Radiology [address] [address] 03/03/2025 1:00 PM EDT Office Visit Ophthalmology [address] [address] Washington Gordon MD [address] [place] [address] [address], Nurse Ophthalmology [address] [address] Health Maintenance Due Date Last Done Comments [...] this encounter Medical Devices Implanted Type Area Knitting Tester Device Identifier Shelf Expiration Date Model / Serial / Lot Cath Drainage 10fr [facility]-10-038 - [id number] Implanted:Qty : 1 on 05/07/2023 at [facility] Right: Abdomen [id number] 02/15/2026 [facility]-10-03 8 / / [id number] documented as of this encounter Visit Diagnoses [...] 2 mg E ye Right lidocaine-epinephrine 2 %-1:561391 inj 6 mg 6 mg (0.3 mL), [...] Power of Attor cristin? No Care Teams Gasoline Tractor Operator Relationship Specialty Start Date End Date Denis Urbina MD [address] [place] [address] PCP - General Family Medicine 04/17/22 documented as of this encounter
--- OUTSIDE RECORDS SUMMARY | 2025-01-09 05:29 | External Medical Summary ---
Author Name Unknown Address Unknown Organization K01:[facility] [address] Laboratory Report Ordering Provider Test Date Status NAYANA SANTOS 11/03/2024 05:04:00 Final Observation Date Value Abnormality Reference (Units ) Status WBC, Total 11/03/2024 05:04:00 7.01 4.00-10.80 (K/uL) Final RBC 11/03/2024 05:04:00 4.69 3.85-5.15 (M/uL) Final Hemoglobin 11/03/2024 05:04:00 13.1 12.0-15.3 (g/dL) Final HCT 11/03/2024 05:04:00 41.6 36.0-45.2 (%) Final MCV 11/03/2024 05:04:00 88.7 81.5-97.5 (fL) Final MCH 11/03/2024 05:04:00 27.9 27.0-34.0 (pg) Final MCHC 11/03/2024 05:04:00 31.5 32.0-36.0 (g/dL) Final RDW 11/03/2024 05:04:00 14.6 11.5-15.5 (%) Final Platelets 11/03/2024 05:04:00 168 140-400 (K/uL) Final MPV 11/03/2024 05:04:00 10.0 6.6-11.1 (fL) Final Nucleated erythrocytes/100 leukocytes [Ratio] in Blood by Automated count 11/03/2024 05:04:00 0 <=0 (/100 WBCs) Final Performing Location [facility] [address] [facility] [place] [address]
--- OUTSIDE RECORDS SUMMARY | 2025-01-09 05:30 | External Medical Summary | Summary of Care ---
Author Name Unknown Organization [facility] Address [address] [place] [address] Phone [phone] Care Team Providers Care Advertising Dispatch Clerks Supervisor Name Role Phone Denis Urbina MD Primary Care Provider + [phone] Reason for Visit * Reason Onset Date Comments Skilled Visit 10/27/2024 Encounter Details Date Type Department Care Team (Latest Contact Info) Description 10/20/2024 9:00 AM EST Group Home Visit [facility], [facility] [address] [place] [address] Deepika Bates CRNP [address] [address] Type 2 diabetes mellitus with diabetic polyneuropathy, with long-term current use of insulin ([facility])*; Chronic respiratory failure with hypoxia and hypercapnia ([facility]); Heart failure, diastolic, with acute decompensation ([facility]); Chronic kidney disease, stage 4 (severe) ([facility]); Acute on chronic diastolic (congestive) heart failure ([facility]); COPD, group C, by GOLD 2017 classification (HCC); HTN, goal below 140/90; PAOLA (obstructive sleep apnea); Chronic kidney disease, stage 3b (HCC) Allergies No known active allergiesdocumented as of this encounter (statuses as of 10/28/2024) Medications Albuterol Sulfate (2.5 MG/3ML) 0.083% Inhalation [...] 06/27/20 22 Active FreeStyle Maria Luz 2 [place] Device Use as directed . 1 Each 06/27/20 22 Active BD Insulin Syringe U/F 30G X 1/2" 0.3 ML (Insulin Syringe-Needle U-100)Indications: Type 2 diabetes mellitus without complication (HCC),Type 2 diabetes mellitus without complication, with long-term current use of insulin (HCC) INJECT UNDER THE SKIN 4 TIMES A DAY 100 Each 2 06/06/20 23 Active Droplet Pen [place] 31G X 5 MM (Insulin Pen Needle)Indications :Type 2 diabetes mellitus without complication, with long-term current use of insulin (HCC) inject subcutaneously four times a day 1000 Each 06/07/20 23 Active OneTouch UltraSoft LancetsIndications :Type 2 diabetes mellitus without complication, unspecified whether supervisor intermediates insulin use (HCC) Use as directed 4 [...] tongue. 30 Tablet 1 06/09/20 24 Active Ketoconazole 2 % External Shampoo (Nizoral) Apply topically to affected area every 3 days for 28 days. Shampoo twice a week 120 mL 1 09/30/19 25 025 Active Triamcinolone Acetonide 0.1 % External Cream [...] IZ PRN 04/17/2024 04/17/2025 Active lidocaine-epinephrine 2 %-1:927758 inj 6 mgIndications:Moderate nonproliferative diabetic retinopathy of both eyes with macular edema associated with type 2 diabetes mellitus (HCC),Optic nerve drusen, left,6th nerve palsy, right,Combined forms of age-related cataract of both eyes 6 mg IJ PRN 04/17/2024 04/17/2025 Active documented as of this encounter (statuses as of 10/28/2024) Active Problems Problem Noted Date Diagnosed Date [...] as of this encounter (statuses as of 10/28/2024) Resolved Problems Problem Noted Date Diagnosed Date [...] as of this encounter (statuses as of 10/28/2024) Immunizations Name Administration Dates Next Due Covid-19 Ad26, Single Dose ([place]ona/J&J) 021 Hepatitis B, 20+ yrs 12/08/2014,03/31/2011,02/23 Pneumococcal Conjugate Vacci ne, 20-valent ([id number]) 06/06/2023 Pneumococcal Polysaccharide PPV23 (Pneumovax) 02/10/2011 Seasonal [...] ages 0-17 years) Not on file 10/03/2024 Comments No Sex and Gender Information [...] Progress Notes * Deepika Bates CRNP - 10/27/2024 12:41 PM EST Name: Meera Mcgraw Date of :1955 TRANSITION EVENT: Type: skilled Date: October 20, 2024 Code Status: Full Code This note pertains to care provided at [facility]. Please see facility medical record for original note. This note is not to be edited or addended in [employer]. Editing or addending needs to occur in the facilities medical record. Subjective: Meera Mcgraw is a 69 year old female. Patient being seen for skilled visit. Chief Complaint Patient presents with Skilled Visit HPI: This is a 69 yo female who was seen at the bedside today for skilled visit. She is admitted to [facility] from [facility] where she was hospitalized from 10/02/2024-10/10/2024 HOSPITAL COURSE (focused): 69-year-old female with a PMH significant for COPD on 2 L oxygen at baseline, PAOLA on CPAP at night,heart failure with preserved ejection fraction (LVEF 55%), chronic bilateral lower extremity venousstasis wound, type 2 diabetes, CKD presented to the ED on 10/02 with increased shortness of breath, weight gain, [...] diuresed with IV Lasix and transitioned to BARN MANAGER torsemide. Patient received 2 doses of [...] by Wound Care and [facility] on discharge. Patient was hemodynamically stable at the time ofdischarge. HPI: This is a 69 yo female who was seen at the bedside today for skilled visit. She was seen at dermatology today for itching. She was diagnosed with head lice. Denies fever and chills. Denies cough, wheezing, CP and SOB Denies cough, wheezing, CP and SOB She is following with wound care. Denies PUENTE Appetite is good. Sleeping well. Taking medications as directed Patient [...] use of insulin ([facility]) Right abducens nerve palsy Obesity hypoventilation syndrome (HCC) Lesion of bone of cervical spine BMI 40.0-44.9, adult ([facility]) Anxiety state Choledocholithiasis Chronic respiratory failure with hypoxia and hypercapnia ([facility]) Moderate nonproliferative diabetic retinopathy of both eyes with macular edema associated with type2 diabetes mellitus ([facility]) Heart failure, systolic and diastolic, acute on chronic ([facility]) Acute respiratory failure with hypercapnia ([facility]) Food insecurity Chronic kidney disease with symptom management only, stage 3 (moderate) ([facility]) COPD, group C, by GOLD 2017 classification ([facility]) Onychomycosis of nail of digit of hand Acute renal failure superimposed on stage 3b chronic kidney disease (HCC) Chronic kidney disease, stage 4 (severe) ([facility]) Venous stasis ulcers of both lower extremities ([facility]) Hyperkalemia Cellulitis Acute on chronic respiratory failure with hypercapnia ([facility]) Excoriation Past Medical History: Diagnosis Date Acute [...] Dr. Moss *New Consent* CARPAL TUNNEL SYN 1996 on right ERCP, DIAGNOSTIC, SPECIMEN COLLECTION 05/08/2023 ENDOSCOPIC RETROGRADE CHOLANGIOPANCREATOGRAPHY (ERCP) DIAGNOSTIC performed by Scotty Pearson DO at ENDOSCOPY [facility] FLUORESCEIN ANGIOGRAPHY MULTIFRAME 01/12/2017 OD > OS / Dr. Brown FX/DIS,RADIAL,OPN,INTRAARTIC,INT FIX,[address] Savage INJECTION OF EYE DRUG Bilateral 07/15/2024 Eylea OU # 3 Dr Gordon IR ASPIRATION ABSCESS/COLLECTION 05/07/2023 IR PROCEDURE NOT PERFORMED DOCUMENTATION ONLY 05/07/2023 LAPAROSCOPY;APPENDECTOMY N/A 01/28/2017 LAPAROSCOPIC APPENDECTOMY performed by [place] Newell MD at OR [facility] PARTIAL REMOVAL OF COLON 2000 left hemicolectomy, [...] 0-17 years): Not on file Food Insecurity: No Food Insecurity (10/03/2024) Food Insecurity Do you need food for this week? (Adult - for ages 18 years and over): No Are you able to get enough food for your family? (Household - for ages 0-17 years): Not on file Does your family need food this week? (Household - for ages 0-17 years): Not on file Do you always have enough food for your family? (Household - for ages 0-17 years): Not on file Transportation Needs: No Transportation Needs (10/03/2024) Transportation [...] Stability Do you currently live in a mcfp or have no steady place to sleep [...] list as this cannot be edited in [employer]. Review of Systems: all areas negative except [...] sleep apnea) PLAN: Continue present medication(s):as ordered. Detention Home Treatment Given: Other none Electronically signed by: AZEEM Mauricio Over 47 minutes were spent in this visit more than half the time was spent counselling or coordinating care. documented in this encounter Plan of Treatment Upcoming Encounters Date Type Department Care Team (Late st Contact Info) Description 10/28/2024 1:30 PM EST Office Visit Ophthalmology [facility] [address] [place] [address] Washington Gordon MD [address] [facility] [address] [place] [address] 11/10/2024 8:00 AM EST Office Visit Pulmonary Medicine [facility] [place] [address] [place] [facility] [place] [address] Braxton Elizalde MD [address] [place] [address] 12/15/2024 4:20 PM EDT Office Visit Nephrology [facility] [address] [facility] [place] [address] Elie Dixon MD [address] [place] [facility] [place] [address] 12/23/2024 10:30 AM EDT Office Visit Ophthalmology [facility] [address] [place] [address] [place] [address] [place] [address] 12/24/2024 10:30 AM EDT Office Visit Cardiology [facility] [address] [place] [facility] [place] [address] Angela Briggs CRNP [address] [place] [facility] [place] [address] 01/22/2025 1:15 PM EDT Imaging Radiology [facility] [address] [place] [address] Health Maintenance Due Date Last Done Comments [...] 08/0 04/2024, 04/24/2024, Additional history exists GFR 04/19/2025 10/27/2024, 09/25, 10/13/2024, Additional history exists Diabetic [...] this encounter Medical Devices Implanted Type Area Assembly Manager Device Identifier Shelf Expiration Date Model / Serial / Lot Cath Drainage 10fr Rl-10-038 - [id number] Implanted:Qty : 1 on 05/07/2023 at [facility] Right: Abdom[employer] [id number] 02/15/2026 [facility]-10-03 8 / / [id number] documented as of this encounter Visit Diagnoses Diagnosis Type 2 diabetes mellitus with diabetic polyneuropathy, with long-term current use of insulin (HCC)- Primary Chronic respiratory failure with hypoxia and hypercapnia (HCC) Heart failure, diastolic, with acute decompensation (HCC) Acute on chronic diastolic heart failure Chronic kidney disease, stage 4 (severe) (HCC) Acute on chronic diastolic (congestive) heart failure (HCC) COPD, group C, by GOLD 2017 classification (HCC) HTN, goal below 140/90 Unspecified essential [...] Power of Attor cristin? No Care Teams Advertising Dispatch Clerks Supervisor Relationship Specialty Start Date End Date Denis Urbina MD [address] [place] [address] PCP - General Family Medicine 04/17/22 documented as of this encounter
--- OUTSIDE RECORDS SUMMARY | 2025-01-09 05:30 | External Medical Summary | Summary of Care ---
Author Name Unknown Organization [facility] Address [address] [place] [address] Phone [phone] Care Team Providers Care Renderer Name Role Phone Denis Urbina MD Primary Care Provider + [phone] Reason for Visit * Reason Onset Date Comments Follow Up 10/29/2024 Encounter Details Date Type Department Care Team ([facility] st Contact Info) Description 10/29/2024 Telephone Pulmonary Medicine [address] [address] Braxton Elizalde MD [address] [place] [id number] Follow Up Allergies No known active allergiesdocumented as of this encounter (statuses as of 10/30/2024) Medications Albuterol Sulfate (2.5 MG/3ML) 0.083% Inhalation [...] 06/27/20 22 Active FreeStyle Maria Luz 2 [place] Device Use as directed . 1 Each 06/27/20 22 Active BD Insulin Syringe U/F 30G X 1/2" 0.3 ML (Insulin Syringe-Needle U-100)Indications: Type 2 diabetes mellitus without complication (HCC),Type 2 diabetes mellitus without complication, with long-term current use of insulin (HCC) INJECT UNDER THE SKIN 4 TIMES A DAY 100 Each 2 06/06/20 23 Active Droplet Pen [place] 31G X 5 MM (Insulin Pen Needle)Indications :Type 2 diabetes mellitus without complication, with long-term current use of insulin (HCC) inject subcutaneously four times a day 1000 Each 06/07/20 23 Active OneTouch UltraSoft LancetsIndications :Type 2 diabetes mellitus without complication, unspecified whether alf insulin use (HCC) Use as directed 4 [...] IZ PRN 04/17/2024 04/17/2025 Active lidocaine-epinephrine 2 %-1:430425 inj 6 mgIndications:Moderate nonproliferative diabetic retinopathy of [...] as of this encounter (statuses as of 10/30/2024) Active Problems Problem Noted Date Diagnosed Date [...] as of this encounter (statuses as of 10/30/2024) Resolved Problems Problem Noted Date Diagnosed Date [...] as of this encounter (statuses as of 10/30/2024) Immunizations Name Administration Dates Next Due Covid-19 Ad26, Single Dose ([place]/J&J) 021 Hepatitis B, 20+ yrs 12/08/2014,03/31/2011,02/23 Pneumococcal Conjugate Vacci ne, 20-valent ([id number]) 06/06/2023 Pneumococcal Polysaccharide PPV23 (Pneumovax) 02/10/2011 Seasonal [...] encounter Miscellaneous Notes * Telephone Encounter - Luis Fernando Atkinson RN - 10/29/2024 11:51 AM EST Called pt longterm and spoke with pt caregiver TERESITA Dean. [...] 11/04/2024 9:00 AM EST Office Visit Ophthalmology [facility] [address] [place] [address] Washington Gordon MD [address] [place] [address] 11/10/2024 8:00 AM EST Office Visit Pulmonary Medicine [facility] Kymberly MIRANDA [address] [place] [address] Braxton Elizalde MD [address] [facility] [place] [address] 12/15/2024 4:20 PM EDT Office Visit Nephrology [facility]ARR [address] [place] [address] Elie Dixon MD [address] [place] 12/23/2024 10:30 AM EDT Office Visit Ophthalmology [facility] [address] [place] [address] Archaan Nava MD [address] [place] [address] 12/24/2024 10:30 AM EDT Office Visit Cardiology [facility] [address] [place] [address] Angela Briggs CRNP [address] [facility] [place] [address] 01/22/2025 1:15 PM EDT Imaging Radiology [facility] [address] [place] [address] Health Maintenance Due Date Last Done Comments [...] encounter Medical Devices Implanted Type Area Manager Community Outreach Device Identifier Shelf Expiration Date Model / Serial / Lot Cath Drainage 10fr [facility]-10-038 - [id number] Implanted:Qty : 1 on 05/07/2023 at [facility] Right: Abdomen [employer] [id number] 02/15/2026 [facility]-10-03 8 / / [id number] documented as of this encounter Advance Directives [...] Power of Attor cristin? No Care Teams Renderer Relationship Specialty Start Date End Date Denis Urbina MD [address] [place] [address] PCP - General Family Medicine 04/17/22 documented as of this encounter
--- OUTSIDE RECORDS SUMMARY | 2025-01-09 05:30 | External Medical Summary | Summary of Care ---
Author Name Unknown Organization [facility] Address [address] [place] [address] Phone [phone] Care Team Providers Care Eyelet Machine Operator Name Role Phone Denis Urbina MD Primary Care Provider + [phone] Reason for Visit * Reason Comments NEW PATIENT Encounter Details Date Type Department Care Team (Late st Contact Info) Description 10/27/2024 8:00 AM EST Office Visit Pulmonary Medicine [facility] [address] [place] [address] Braxton Elizalde MD [address] [place] [phone] Chronic respiratory failure with hypoxia and hypercapnia (HCC)*; Type 2 diabetes mellitus with diabetic polyneuropathy, with long-term current use of insulin (HCC); Sleep apnea, unspecified type; Severe persistent asthma with exacerbation Allergies No known active allergiesdocumented as of this encounter (statuses as of 10/27/2024) Medications Albuterol Sulfate (2.5 MG/3ML) 0.083% Inhalation [...] 1 Each Active FreeStyle Maria Luz 2 [place] Device Use as directed . 1 Each 022 Active BD Insulin Syringe U/F 30G X 1/2" 0.3 ML (Insulin Syringe-Needle U-100)Indications :Type 2 diabetes mellitus without complication (HCC),Type 2 diabetes mellitus without complication, with long-term current use of insulin (HCC) INJECT UNDER THE SKIN 4 TIMES A DAY 100 Each 2 023 Active Droplet Pen [place] 31G X 5 MM (Insulin Pen Needle)Indication s:Type 2 diabetes mellitus without complication, with long-term current use of insulin (HCC) inject subcutaneously four times a day 1000 Each 023 Active OneTouch UltraSoft LancetsIndication s:Type 2 diabetes mellitus without complication, unspecified whether group home insulin use (HCC) Use as directed 4 [...] with meals. 15 mL 3 024 Active Omeprazole 20 MG Oral Capsule Delayed Release (PriLOSEC)Indicat ions:Gastroesopha geal reflux disease without esophagitis take 1 capsule by mouth every morning 90 Capsule Active Bromfenac Sodium (Once-Daily) 0.09 % Ophthalmic Solution Instill 1 Drop into eye daily at noon. 2 mL Active Additional Information Patient taking differently:1 Drop Ophthalmic DAILY NOON,Right eye, Informant: Patient, Pharmacy, Reported on 10/27/2024 Cyanocobalamin 1000 MCG Sublingual Tablet SublingualIndicat ions:B12 [...] on tongue. 30 Tablet 1 024 Active Ketoconazole 2 % External Shampoo (Nizoral) Apply topically to affected area every 3 days for 28 days. Shampoo twice a week 120 mL 025 2024 Active Triamcinolone Acetonide 0.1 % External Cream (Aristocort) Apply 80 g topically to affected area every 12 hours as needed for Itching. Apply to areas of skin with itching 30 g Active Torsemide 20 MG Oral Tablet (Demadex) Take 3 Tablets by mouth in the morning. 90 Tablet 11 Active Nicotine 21 MG/24HR Transdermal Patch 24 [...] Pain, Severe. Ongoing therapy 45 Tablet Active Additional Information Patient not taking.Reported on 10/27/2024 Vitamin D3 50 MCG (2000 UT) Oral CapsuleIndication s:Vitamin D deficiency Take 1 Capsule by mouth in the morning. Every morning.. 90 Capsule 1 024 2024 Discontinued Cyclobenzaprine HCl 5 MG Oral Tablet (Flexeril) Take 1 Tablet by mouth every 8 hours as needed for Muscle spasms for up to 7 days. 30 Tablet 025 2024 Discontinued Malathion 0.5 % External Lotion Apply topically to affected area once for 1 dose. Sprinkle lotion on dry hair and rub gently until the scalp is thoroughly moistened. Allow to dry naturally and leave uncovered. 59 mL 3 025 2024 Discontinued Malathion 0.5 % External Lotion Apply topically to affected area once for 1 dose. Sprinkle lotion on dry hair and rub gently until the scalp is thoroughly moistened. Allow to dry naturally and leave uncovered. 118 mL 3 025 2024 Discontinued Hospital, Clinic, or Other [...] IZ PRN 04/17/2024 04/17/2025 Active lidocaine-epinephrine 2 %-1:[id number] inj 6 mgIndications:Moderate nonproliferative diabetic retinopathy of both eyes with macular edema associated with type 2 diabetes mellitus (HCC),Optic nerve drusen, left,6th nerve palsy, right,Combined forms of age-related cataract of both eyes 6 mg IJ PRN 04/17/2024 04/17/2025 Active albuterol-ipratropium (Duoneb) inhalation solution 3 mLIndications:Chronic respiratory failure with hypoxia and hypercapnia (HCC) 3 mL NEBULIZER PRN 10/27/2024 10/27/2025 Active methylPREDNISolone sodium succ (SOLU-Medrol) inj 40 mgIndications:Chronic respiratory failure with hypoxia and hypercapnia (HCC),Type 2 diabetes mellitus with diabetic polyneuropathy, with long-term current use of insulin (HCC),Sleep apnea, unspecified type,Severe persistent asthma with exacerbation 40 mg IM ONCE 10/27/2024 10/27/2024 Ended documented as of this encounter (statuses as of 10/27/2024) Active Problems Problem Noted Date Diagnosed Date [...] as of this encounter (statuses as of 10/27/2024) Resolved Problems Problem Noted Date Diagnosed Date [...] as of this encounter (statuses as of 10/27/2024) Immunizations Name Administration Dates Next Due Covid-19 Ad26, Single Dose ([place]/J&J) 09/25/2 021 Hepatitis B, 20+ yrs 12/08/2014,03/31/2011,02/23 Pneumococcal Conjugate Vacci ne, 20-valent ([id number]) 06/06/2023 Pneumococcal Polysaccharide PPV23 (Pneumovax) 02/10/2011 Seasonal [...] Sign Reading Time Taken Comments Blood Pressure 102/52 10/27/2024 8:42 AM EST Pulse 62 10/27/2024 8:42 AM EST Temperature 36.7 °C (98 °F) 10/27/2024 8:42 AM EST Respiratory Rate 20 10/27/2024 8:42 AM EST Oxygen Saturation 90% 10/27/2024 8:42 AM EST 3L Inhaled Oxygen Concentration - - Weight 112 kg (247 lb) 10/27/2024 8:42 AM EST Height 162.6 cm (5' 4") 10/27/2024 8:42 AM EST Body Mass Index 42.4 10/27/2024 8:42 AM EST documented in this encounter Functional Status * Are you deaf or do you have serious difficulty hearing? Answer Date of Assessment Author No 10/03/2024 7:48 PM EST Lokesh Hurtado RN * Are you blind or do [...] Assessment Author Yes 10/03/2024 7:48 PM Lokesh Churhc RN * Because of a physical, mental, or emotional condition, do you have difficulty doing errands alone such as visiting a doctor’s office or shopping? (15 years old or older) Answer Date of Assessment Author No 10/03/2024 7:48 PM Lokesh Chucrh RN documented as of this encounter Mental Status * Because of a physical, mental, or emotional condition, do you have serious difficulty concentrating, remembering, or making decisions? (5 years old or older) Answer Entry Date Author No 10/03/2024 7:48 PM Lokesh Church RN documented in this encounter Progress Notes * Braxton Elizalde MD - 10/27/2024 9:26 AM EST Attending addendum: I have discussed the patient's management with the medical trainee (Domenica Lewis DO, Sleep Medicine Fellow) and agree with the note. Please refer to the documented findings and plan of care. This patient's visit today consisted of an evaluation. I was present and confirmed the findings of thehistory and exam. Impression/Plan: Crystal Mcgraw is a 69 year old woman with the following issues: 1. Chronic respiratory failure with hypoxia and hypercapnia 2. Acute infection with influenza 3. Restrictive thoracic disease -- Crystal is acutely ill today, has polyphonic wheezes and rhonchi. Suspect she may have influenza or other viral infection. O Rx'd duoneb x 1 O On reevaluation, ongoing wheezing. So, ordered solumedrol 40 mg IM x 1 O Advised tamiflu x 5 days O Advised prednisone taper as follows: prednisone 30 mg PO daily x 3 days, then 20 mg x 3 days, then 10 mg x 3 days O Duonebs QID -- For her respiratory failure, CO2 is elevated in the 60s today. O this is due to restrictive thoracic disease in the setting of obesity O She's not been on NIV given she's at a retirement and she had the astral at home O so ordered autoBPAP for crystal. -- Return in 2-3 weeks. I spent a total of 40-54 minutes (exact time 45 mins) on the date of service in preparation, delivery, and documentation of the care provided to Crystal Mcgraw excluding any time spent in the performance of separately billed services or time spent by another provider/QHP. Braxton Elizalde MD Attending Physician Pulmonary, Critical Care and Sleep Medicine * Domenica Lewis MD - 10/27/2024 8:45 AM EST Images from the original note were not included. Follow-up - Thoracic / Pulmonary Medicine Name: Crystal Mcgraw Location: [facility]@ Date: 10/27/2024 Time: 8:46 AM Clinical Summary: Ms. Crystal Mcgraw who is a 69 year old woman with a background history of restrictive thoracic disease consequent to severe obesity, known heart failure preserved ejection fraction and limited mobility who presented to the hospital on 10/03/2024 with worsening shortness of breath, lower extremity edema, and worsening lower extremity wounds. Recently admitted -10/02/24 for acute on chronic hypoxic hypercarbic respiratory failure and placed on noninvasive ventilation. Currently on Astral Ventilator since November of 2023. Interim History: -Currently on 3 L -Having non-productive cough; has not tried anything over the counter -Chest feels tight when trying to breathe -Has prn albuterol but not on any regular maintenance inhaler -Previous smoker, not currently smoking Review of systems: As per HPI. Otherwise all other systems were negative. PHYSICAL EXAMINATION: Most Recent Vital Signs: @VSR@ O2 sat: · General: Alert and interactive, comfortable appearing, no acute distress. · HEENT: Sclera anicteric. MMM. Oropharynx clear. · Neck: Trachea midline. No stridor. · Chest: Good air movement. Diffuse wheezing present · Heart: Regular without murmurs, gallops, rubs, or heaves. Normal S1S2. No JVD. · Abd: Soft, non-tender, non-distended, normoactive bowel sounds. No hepatosplenomegaly. · Ext: No edema bilaterally. No cyanosis. No clubbing. · Neuro/Psych: No focal neurological deficits. Mood and affect were normal. · Derm: No acute rashes in the observed areas. · MSK: No notable joint deformities or effusions. Data: Labs: Blood gas pending (10/21/24) Latest Reference Range & Units 10/27/24 08:57 BLOOD GAS, ARTERIAL Rpt !! pH, Arterial 7.350 - 7.450 units 7.381 pCO2, Arterial 35.0 - 45.0 mmHg 62.5 (HH) pO2, Arterial 75.0 - 100.0 mmHg 59.4 (L) O2 Content, Arterial 15.0 - 24.0 %vol 13.7 (L) O2 Flow, Arterial L/min 3 lpm Base Excess, Arterial -2.0 - 2.0 mmol/L 9.6 (H) Reduced Hemoglobin, Arterial 0.0 - 5.0 % total Hgb 10.8 (H) Temperature C 37.0 Oxyhemoglobin, Arterial 94.0 - 99.0 % total Hgb 87.2 (L) FiO2 % Not Provided Carboxyhemoglobin, Whole Blood <=1.5 % total Hgb 1.6 (H) Methemoglobin, Whole Blood <=1.5 % total Hgb 0.4 Bicarbonate, Whole Blood 23.0 - 31.0 mmol/L 36.2 (H) HGB 12.0 - 15.3 g/dL 11.2 (L) !!: Data is critical (HH): Data is critically high (L): Data is abnormally low (H): Data is abnormally high Rpt: View report in Results Review for more information CT CHEST WO CONTRAST Result Date: 10/05/2024 IMPRESSION 1. Dependent juxtapleural consolidation with associated patchy ground-glass densities inbilateral lower lobes. Differential considerations are atelectasis versus pneumonia. New juxtapleural densities, nonspecific and most likely related to related to atelectasis or pneumonia. Vcskv-fvuuusftcd-ic evaluation is recommended in 6-8 weeks to ensure resolution. 2. Diffusely heterogenous attenuation of the lungs which could be related to mosaic attenuation from small vessel/small airway disease versus ground-glass opacification from pulmonary edema. Minimal septal thickening in bilateral lower lobes, nonspecific finding and could be related to interstitial thickening or pulmonary edema. 3. Intraluminal high density in the esophagus probably related to retained ingested material. Attention to follow-up. 4. Additional findings and details as above. XR CHEST 1 VIEW Result Date: 10/02/2024 IMPRESSION Vascular congestion XR CHEST 1 VIEW Result Date: 04/30/2024 IMPRESSION 1. Findings suggest mild CHF/volume overload. Impression & Recommendations: -B/c at retirement currently, unable to bring Astral ventilator with her -Given hypercapnia noted on in office ABG, retirement orders for auto bi-level PAP with IPAP max 20 cm H2O, EPAP min 8 cm H2O and PS 6 cm H2O with supplemental oxygen at 4 L/min with mask fitting -Duoneb administered today in office along with IM solumedrol 40 mg -PCR ordered and obtained -intermediate order of Prednisone taper -Script for tamiflu provided given recent exposure -Recommend 4 L at rest and 6 L during exertion Cosigned by Braxton Elizalde MD at 10/27/2024 2:15 PM EST documented in this encounter Nursing Notes * Yamileth Hale LPN - 10/27/2024 8:46 AM EST New pt O2 sat 87-90 % with O2 at 3 L documented in this encounter Plan of Treatment Upcoming Encounters Date Type Department Care Team (Late st Contact Info) Description 10/28/2024 1:30 PM EST Office Visit Ophthalmology [facility] [address] [place] [address] Washington Gordon MD [address] [place] [address] [place] [address] 11/10/2024 8:00 AM EST Office Visit Pulmonary Medicine [facility] Kymberly Zhang [address] [facility] [place] [address] Braxton [facility]alde [facility] [address] [facility] [address] 12/15/2024 4:20 PM EDT Office Visit Nephrology [facility] [place]y [address] [facility] [place] [address] Elie Dixon MD [address] [place] [facility] [place] [address] 12/23/2024 10:30 AM EDT Office Visit Ophthalmology [facility] [address] [place] [address] [place] [address] [place] [address] 12/24/2024 10:30 AM EDT Office Visit Cardiology [facility] [address] [place] [facility] [place] [address] Angela Briggs CRNP [address] [facility] [place] [address] 01/22/2025 1:15 PM EDT Imaging Radiology [facility] [address] [place] [address] Health Maintenance Due Date Last Done Comments [...] this encounter Medical Devices Implanted Type Area Braze Operator Device Identifier Shelf Expiration Date Model / Serial / Lot Cath Drainage 10fr [facility]-10-038 - [id number] Implanted:Qty : 1 on 05/07/2023 at [facility] Right: Abdomen [employer] [id number] 02/15/2026 C-10-03 8 / / [id number] documented as of this encounter Procedures Procedure Name Priority Date/Time Associated Diagnosis Comments RESPIRATORY PATHOGEN PANEL, PCR Routine 10/27/2024 10:08 AM EST Chronic respiratory failure with hypoxia and hypercapnia (HCC) documented in this encounter Results * (ABNORMAL) RESPIRATORY PATHOGEN PANEL, PCR (10/27/2024 10:08 AM EST) Adenovirus by PCR Negative Negative 025 4:46 PM EST [facility] Coronavirus 229E by PCR Negative Negative 10/27/2024 4:46 PM EST [facility] Coronavirus HKU1 by PCR Negative Negative 10/27/2024 4:46 PM EST [facility] Coronavirus NL63 by PCR Negative Negative 10/27/2024 4:46 PM EST [facility] Coronavirus OC43 by PCR Positive(A) Negative 10/27/2024 4:46 PM EST [facility] Comment:Coronavirus OC43 det ected by PCR (amplified probe). Coronavirus SARS-CoV-2 by PCR Negative Negative 10/27/2024 4:46 PM EST [facility] Human Metapneumovirus by PCR Negative Negative 10/27/2024 4:46 PM EST [facility] Rhinovirus/Enterov irus by PCR Negative Negative 10/27/2024 4:46 PM EST [facility] Influenza A Virus by PCR Negative Negative 10/27/2024 4:46 PM EST [facility] Influenza B Virus by PCR Negative Negative 10/27/2024 4:46 PM EST [facility] Parainfluenza Virus 1 by PCR Negative Negative 10/27/2024 4:46 PM EST [facility] Parainfluenza Virus 2 by PCR Negative Negative 10/27/2024 4:46 PM EST [facility] Parainfluenza Virus 3 by PCR Negative Negative 10/27/2024 4:46 PM EST [facility] Parainfluenza Virus 4 by PCR Negative Negative 10/27/2024 4:46 PM EST [facility] Respiratory Syncytial Virus by PCR Negative Negative 10/27/2024 4:46 PM EST [facility] Bordetella pertussis by PCR Negative Negative 10/27/2024 4:46 PM EST [facility] Chlamydia pneumoniae by PCR Negative Negative 10/27/2024 4:46 PM EST [facility] Mycoplasma pneumoniae by PCR Negative Negative 10/27/2024 4:46 PM EST [facility] Bordetella parapertussis by PCR Negative Negative 10/27/2024 4:46 PM EST [facility] Comment: The primers that detect Rhinovirus may cross react with some Enterorviruses. The validation of bronchial specimens, tracheal aspirates, and throats for this assay was developed and performance characteristics determined by [employer]. The validation of alternate specimen types has not been cleared or approved by the U.S. Food and Drug Administration (FDA). It has been determined that such clearance or approval is not necessary. Upper Respiratory Nasopharyngeal swab / Unknown Non-blood Collection / Unknown 10/27/2024 10:08 AM EST 10/27/2024 10:32 AM EST Domenica Lewis MD LAB MICRO - GENERAL ORDERAB LES Final Result [facility] [address] [place] [address] documented in this encounter Visit Diagnoses Diagnosis Chronic respiratory failure with hypoxia and hypercapnia (HCC)- Primary Type 2 diabetes mellitus with diabetic polyneuropathy, with long-term current use of insulin ([facility]) Sleep apnea, unspecified type Severe persistent asthma with exacerbation Unspecified asthma, with exacerbation documented in this encounter Administered Medications Active Administered Medications - up to 3 most recent administrations Medication Order MAR Action Action Date Dose Rate Site albuterol-ipratropium (Duoneb) inhalation solution 3 mL 3 mL, Nebulizer, PRN Other, Starting on Sun10/27/24 at 0937, Until Sun10/27/25 at 0936, For 365 days, 3 mL = 0.5 mg ipratropium/ 2.5 mg albuterolIndications:Chronic respiratory failure with hypoxia and hypercapnia (HCC) Given 10/27/2024 9:45 AM EST 3 mL Inactive Administered Medications - up to 3 most recent administrations Medication Order MAR Action Action Date Dose Rate Site methylPREDNISolone sodium succ (SOLU-Medrol) inj 40 mg 40 mg, Intramuscular, ONCE, On Sun10/27/24 at 1030, For 1 doseIndications:Chronic respiratory failure with hypoxia and hypercapnia (HCC),Type 2 diabetes mellitus with diabetic polyneuropathy, with long-term current use of insulin ([facility]),Sleep apnea, unspecified type,Severe persistent asthma with exacerbation Given 10/27/2024 10:07 AM EST 40 mg Deltoid Left Upper documented in this encounter Additional Health Concerns Infection Onset Date Last Indicated Resolved Time Respiratory Rule-Out 10/27/2024 10/27/2024 025 4:46 PM [...] Power of Attor cristin? No Care Teams Eyelet Machine Operator Relationship Specialty Start Date End Date Denis Urbina MD [address] [place] [address] PCP - General Family Medicine 04/17/22 documented as of this encounter
[2025-01-09 05:31] LABS: Thyroid Stimulating Hormone 2.615 uIu/ml (0.300-4.500)
--- OUTSIDE RECORDS SUMMARY | 2025-01-09 05:31 | External Medical Summary ---
Author Name Unknown Address Unknown Organization [facility] [address] [place] [address] Laboratory Report Ordering Provider Test Date Status TONJA HOLLAND 10/27/2024 08:57:16 Final Observation Date Value Abnormality Reference (Units) Status Body temperature 10/27/2024 08:57:16 37.0 (C) Final pH of Arterial blood 10/27/2024 08:57:16 7.381 7.350-7.450 (units) Final Carbon dioxide [Partial pressure] in Arterial blood 10/27/2024 08:57:16 62.5 Above upper panic limits 35.0-45.0 (mmHg) Final Oxygen [Partial pressure] in Arterial blood 10/27/2024 08:57:16 59.4 Below low normal 75.0-100.0 (mmHg) Final Base excess, Arterial 10/27/2024 08:57:16 9.6 Above high normal -2.0-2.0 (mmol/L) Final Hemoglobin [Mass/volume] in Blood by Oximetry 10/27/2024 08:57:16 11.2 Below low normal 12.0-15.3 (g/dL) Final Oxyhemoglobin, Arterial (FO2HB) 10/27/2024 08:57:16 87.2 Below low normal 94.0-99.0 (% total Hgb) Final Carboxyhemoglobin 10/27/2024 08:57:16 1.6 Above high normal <=1.5 (% total Hgb) Final Smokers: 0-9.0 % Methemoglobin 10/27/2024 08:57:16 0.4 <=1.5 (% total Hgb) Final Deoxyhemoglobin/Hemog lobin.total in Arterial blood 10/27/2024 08:57:16 10.8 Above high normal 0.0-5.0 (% total Hgb) Final Oxygen content in Arterial blood 10/27/2024 08:57:16 13.7 Below low normal 15.0-24.0 (%vol) Final Oxygen/Total gas setting [Volume Fraction] Ventilator 10/27/2024 08:57:16 Not Provided (%) Final O2 FLOW, ARTERIAL - [facility] 10/27/2024 08:57:16 3 lpm (L/min) Final Bicarbonate, Venous, POC (i-STAT) 10/27/2024 08:57:16 36.2 Above high normal 23.0-31.0 (mmol/L) Final Performing Location LABORATORY [address] [place] [address]
--- OUTSIDE RECORDS SUMMARY | 2025-01-09 05:31 | External Medical Summary ---
Author Name Unknown Address Unknown Organization K01:[facility] [place] [facility] [id number] Laboratory Report Ordering Provider Test Date Status JOSE A BRADLEY 10/27/2024 10:08:20 Final Observation Date Value Abnormality Reference (Units ) Status Adenovirus DNA [Presence] in Nasopharynx by DUGLAS with non-probe detection 10/27/2024 10:08:20 Negative Negative Final Human coronavirus 229E RNA [Presence] in Nasopharynx by DUGLAS with non-probe detection 10/27/2024 10:08:20 Negative Negative Final Human coronavirus HKU1 RNA [Presence] in Nasopharynx by DUGLAS with non-probe detection 10/27/2024 10:08:20 Negative Negative Final Human coronavirus NL63 RNA [Presence] in Nasopharynx by DUGLAS with non-probe detection 10/27/2024 10:08:20 Negative Negative Final Human coronavirus OC43 RNA [Presence] in Nasopharynx by DUGLAS with non-probe detection 10/27/2024 10:08:20 Positive Abnormal Negative Final Coronavirus OC43 detected by PCR (amplified probe). SARS-CoV-2 (COVID-19) RNA [P resence] in Nasopharynx by DUGLAS with non-probe detection 10/27/2024 10:08:20 Negative Negative Final Human metapneumovirus RNA [P resence] in Nasopharynx by DUGLAS with non-probe detection 10/27/2024 10:08:20 Negative Negative Final Rhinovirus+Enterovirus RNA [ Presence] in Nasopharynx by DUGLAS with non-probe detection 10/27/2024 10:08:20 Negative Negative Final Influenza virus A RNA [Prese nce] in Nasopharynx by DUGLAS with non-probe detection 10/27/2024 10:08:20 Negative Negative Final Influenza virus B RNA [Prese nce] in Nasopharynx by DUGLAS with non-probe detection 10/27/2024 10:08:20 Negative Negative Final Parainfluenza virus 1 RNA [P resence] in Nasopharynx by DUGLAS with non-probe detection 10/27/2024 10:08:20 Negative Negative Final Parainfluenza virus 2 RNA [P resence] in Nasopharynx by DUGLAS with non-probe detection 10/27/2024 10:08:20 Negative Negative Final Parainfluenza virus 3 RNA [P resence] in Nasopharynx by DUGLAS with non-probe detection 10/27/2024 10:08:20 Negative Negative Final Parainfluenza virus 4 RNA [P resence] in Nasopharynx by DUGLAS with non-probe detection 10/27/2024 10:08:20 Negative Negative Final Respiratory syncytial virus RNA [Presence] in Nasopharynx by DUGLAS with non-probe detection 10/27/2024 10:08:20 Negative Negative F inal Bordetella pertussis.pertuss is toxin promoter region [Presence] in Nasopharynx by DUGLAS with non-probe detection 10/27/2024 10:08:20 Negative Negative Final Chlamydophila pneumoniae DNA [Presence] in Nasopharynx by DUGLAS with non-probe detection 10/27/2024 10:08:20 Negative Negative Final Mycoplasma pneumoniae DNA [P resence] in Nasopharynx by DUGLAS with non-probe detection 10/27/2024 10:08:20 Negative Negative Final Bordetella parapertussis IS1 001 DNA [Presence] in Nasopharynx by DUGLAS with non-probe detection 10/27/2024 10:08:20 Negative Negative F inal The primers that detect Rhin ovirus may cross react with some Enterorviruses. The validation of bronchial specimens, tracheal aspirates, and throats for this assay was developed and performance characteristics determined by [employer]. �The validation of alternate specimen types has not been cleared or approved by the U.S. Food and Drug Administration (FDA). �It has been determined that such clearance or approval is not necessary. Performing Location [facility] [place] [facility] [address]
--- OUTSIDE RECORDS SUMMARY | 2025-01-09 05:31 | External Medical Summary | Summary of Care ---
Author Name Unknown Organization [facility] Address [address] [place] [address] Phone [phone] Care Team Providers Care Boarding Kennel Or Cattery Operator Name Role Phone Denis Urbina MD Primary Care Provider + [phone] Reason for Visit * Reason Comments Pulmonary Function Test Encounter Details Date Type Department Care Team (Late st Contact Info) Description 10/27/2024 8:30 AM EST PulmDiagnostic Ancillary Pulmonary Medicine [facility] Kymberly MIRANDA [address] [facility] [place] [address] Mob, Pft Tech 3 [facility] [address] [facility] [place] [phone] Chronic respiratory failure with hypoxia and hypercapnia (HCC)* Allergies No known active allergiesdocumented as [...] 06/27/20 22 Active FreeStyle Maria Luz 2 [place] Device Use as directed . 1 Each 06/27/20 22 Active BD Insulin Syringe U/F 30G X 1/2" 0.3 ML (Insulin Syringe-Needle U-100)Indications: Type 2 diabetes mellitus without complication (HCC),Type 2 diabetes mellitus without complication, with long-term current use of insulin (HCC) INJECT UNDER THE SKIN 4 TIMES A DAY 100 Each 2 06/06/20 23 Active Droplet Pen [place] 31G X 5 MM (Insulin Pen Needle)Indications :Type 2 diabetes mellitus without complication, with long-term current use of insulin (HCC) inject subcutaneously four times a day 1000 Each 06/07/20 23 Active OneTouch UltraSoft LancetsIndications :Type 2 diabetes mellitus without complication, unspecified whether director long term care insulin use (HCC) Use as directed 4 [...] IZ PRN 04/17/2024 04/17/2025 Active lidocaine-epinephrine 2 %-1:925118 inj 6 mgIndications:Moderate nonproliferative diabetic retinopathy of [...] and hypercapnia 06/28/2022 01/16/2024 Reactive airway disease 06/28/202201/2022 Rhinovirus infection 06/28/2022 024 Bacterial pneumonia 06/28/2022 [...] yrs 12/08/2014,03/31/2011,02/23 Pneumococcal Conjugate Vacci ne, 20-valent ([id number]) 06/06/2023 Pneumococcal Polysaccharide PPV23 (Pneumovax) 02/10/2011 Seasonal [...] Progress Notes * Shaniqua Jeffery RRT - 10/27/2024 9:58 AM EST Abg with direct O2 saturation drawn from left radial artery on 3 LPM. Positive olinda test. documented in this encounter Plan of Treatment Upcoming Encounters Date Type Department Care Team (Late st Contact Info) Description 10/28/2024 1:30 PM EST Office Visit Ophthalmology [facility] [address] [place] [address] [place] Gordon MD [address] [place] [address] 11/10/2024 8:00 AM EST Office Visit Pulmonary Medicine [facility] Kymberly MIRANDA [address] [place] [address] Braxton Elizalde MD [address] [facility] [place] [address] 12/15/2024 4:20 PM EDT Office Visit Nephrology Kymberly FARR [address] [place] [address] Elie Dixon MD [address] [place] [address] 12/23/2024 10:30 AM EDT Office Visit Ophthalmology [facility] [address] [place] [address] Archana Nava MD [address] [place] [address] 12/24/2024 10:30 AM EDT Office Visit Cardiology [facility] [address] [facility] [place] [address] Angela Briggs CRNP [address] [facility] [place] [address] 01/22/2025 1:15 PM EDT Imaging Radiology [facility] [address] [place] [address] Health Maintenance Due Date Last Done Comments [...] 080 04/2024, 04/24/2024, Additional history exists GFR 04/19/2025 10/27/2024, 09/25, 10/13/2024, Additional history exists Diabetic Eye Exam 06/04/2025 06/04/2024, , 06/04/2024, Additional history exists O2 ASSESSMENT COMPLETED IN PAST YEAR FOR COPD 10/27/2025 10/27/2024 Lipid Panel 04/24/2029 04/24/2024, 080 09/2023, 12/26/2023, [...] this encounter Medical Devices Implanted Type Area Patch Setter Device Identifier Shelf Expiration Date Model / Serial / Lot Cath Drainage 10fr [facility]-10-038 - [id number] Implanted:Qty : 1 on 05/07/2023 at [facility] Right: Abdomen [employer] [id number] 02/15/2026 [facility]-10-03 8 / / [id number] documented as of this encounter Procedures Procedure Name Priority Date/Time Associated Diagnosis Comments BLOOD GAS, ARTERIAL Routine 10/27/2024 8 :57 AM EST Chronic respiratory failure with hypoxia and hypercapnia (HCC) documented in this encounter Results * (ABNORMAL) BLOOD GAS, ARTERIAL (10/27/2024 8:57 AM EST) Temperature 37.0 C 10/27/2024 9:44 AM EST LABORATORY [facility] pH, Arterial 7.381 7.350 - 7.450 units 10/27/2024 9:44 AM EST [facility] pCO2, Arterial 62.5(HH) 35.0 - 45.0 mmHg 10/27/2024 9:44 AM EST [facility] pO2, Arterial 59.4(L) 75.0 - 100.0 mmHg 10/27/2024 9:44 AM EST [facility] Base Excess, Arterial 9.6(H) -2.0 - 2.0 mmol/L 10/27/2024 9:44 AM EST [facility] HGB 11.2(L) 12.0 - 15.3 g/dL 10/27/2024 9:44 AM EST [facility] Oxyhemoglobin, Arterial 87.2(L) 94.0 - 99.0 % total Hgb 10/27/2024 9:44 AM EST [facility] Carboxyhemoglob in, Whole Blood 1.6(H) <=1.5 % total Hgb 10/27/2024 9:44 AM EST [facility] Comment:Smokers: 0-9.0 % Methemoglobin, Whole Blood 0.4 <=1.5 % total Hgb 10/27/2024 9:44 AM EST [facility] Reduced Hemoglobin, Arterial 10.8(H) 0.0 - 5.0 % total Hgb 10/27/2024 9:44 AM EST [facility] O2 Content, Arterial 13.7(L) 15.0 - 24.0 %vol 10/27/2024 9:44 AM EST [facility] FiO2 Not Provided % 10/27/2024 9:44 AM EST [facility] O2 Flow, Arterial 3 lpm L/min 10/27/2024 9:44 AM EST [facility] Bicarbonate, Whole Blood 36.2(H) 23.0 - 31.0 mmol/L 10/27/2024 9:44 AM EST [facility] Blood Arterial blood specimen / Unknown Arterial Puncture / Unknown 10/27/2024 8:57 AM EST 10/27/2024 9:23 AM EST us Johanny GANN LAB BLOOD ORDERABLES Final R esult LAB[facility]ATORY [facility] [address] [facility] [place] [address] documented in this encounter Visit Diagnoses Diagnosis Chronic respiratory failure with hypoxia and hypercapnia (HCC)- Primary documented in this encounter Advance Directives * [...] Power of Attor cristin? No Care Teams Boarding Kennel Or Cattery Operator Relationship Specialty Start Date End Date Denis Urbina MD [address] [place] [address] PCP - General Family Medicine 04/17/22 documented as of this encounter
--- OUTSIDE RECORDS SUMMARY | 2025-01-09 05:31 | External Medical Summary | Summary of Care ---
Author Name Unknown Organization [facility] Address [address] [place] [address] Phone [phone] Care Team Providers Care Fraud Investigator Name Role Phone Denis Urbina MD Primary Care Provider + [phone] Reason for Visit * Reason Onset Date Comments Appointment 10/27/2024 Encounter Details Date Type Department Care Team ([facility] st Contact Info) Description 10/27/2024 Telephone Pulmonary Medicine [address] [address] Braxton Elizalde MD [address] [place] [address] Appointment Allergies No known active allergiesdocumented as of [...] Each 022 Active FreeStyle Maria Luz 2 [place] Device Use as directed . 1 Each 022 Active BD Insulin Syringe U/F 30G X 1/2" 0.3 ML (Insulin Syringe-Needle U-100)Indications :Type 2 diabetes mellitus without complication (HCC),Type 2 diabetes mellitus without complication, with long-term current use of insulin (HCC) INJECT UNDER THE SKIN 4 TIMES A DAY 100 Each 2 023 Active Droplet Pen [place] 31G X 5 MM (Insulin Pen Needle)Indication [...] at bedtime., Informant: Patient, Pharmacy, Reported on 10/03/2024 NovoLOG FlexPen 100 UNIT/ML Subcutaneous Solution Pen-injector (insulin aspart) Inject 12 units + scale three times a day with meals. Max of 20 units three times a day with meals. 15 mL 3 024 Active Omeprazole 20 MG Oral Capsule Delayed Release (PriLOSEC)Indicat ions:Gastroesopha geal reflux disease without esophagitis take 1 capsule by mouth every morning 90 Capsule 1 024 Active Bromfenac Sodium (Once-Daily) 0.09 % Ophthalmic Solution Instill 1 Drop into eye daily at noon. 2 mL 1 024 Active Additional Information Patient taking differently:1 Drop Ophthalmic DAILY NOON,Right eye, Informant: Patient, Pharmacy, Reported on 10/20/2024 Cyanocobalamin 1000 MCG Sublingual Tablet SublingualIndicat ions:B12 [...] skin in the morning. 28 Patch Active Ammonium Lactate 12 % External Cream [...] Pain, Severe. Ongoing therapy 45 Tablet Active Vitamin D3 50 MCG (1999) Oral CapsuleIndication s:Vitamin D deficiency Take 1 [...] IZ PRN 04/17/2024 04/17/2025 Active lidocaine-epinephrine 2 %-1:505941 inj 6 mgIndications:Moderate nonproliferative diabetic retinopathy of [...] yrs 12/08/2014,03/31/2011,02/23 Pneumococcal Conjugate Vacci ne, 20-valent ([id number]) 06/06/2023 Pneumococcal Polysaccharide PPV23 (Pneumovax) 02/10/2011 Seasonal [...] encounter Miscellaneous Notes * Telephone Encounter - Dayami Romero OSA - 10/27/2024 8:00 AM EST Tried to reach patient to advise to bring vent. Phone just continuously rings. No answer and unableto leave a message. * Telephone Encounter - Dayami Romero OSA - 10/27/2024 7:59 AM EST ----- Message from Braxton Elizalde MD sent at 10/26/2024 2:45 PM EST ----- Can you please have patient bring her vent to her appointment? Gio documented in this encounter Plan of Treatment Upcoming Encounters Date Type Department Care Team ([facility] st Contact Info) Description 10/28/2024 1:30 PM EST Office Visit Ophthalmology [facility] [address] [place] [address] Washington Gordon MD [address] [address] 11/10/2024 8:00 AM EST Office Visit Pulmonary Medicine [facility] Kymberly Zhang [address] [facility] [place] [address] Braxton Elizalde MD [address] [place] [address] 12/15/2024 4:20 PM EDT Office Visit Nephrology [facility] Rock[place] Vicente [address] [facility] [place] [phone] Elie Dixon MD [address] [facility] [place] [address] 12/23/2024 10:30 AM EDT Office Visit Ophthalmology [facility] [address] [place] [address] Archana Nava MD [address] [place] [address] 12/24/2024 10:30 AM EDT Office Visit Cardiology [facility] [address] [facility] [place] [address] Angela Briggs CRNP [address] [facility] [place] [address] 01/22/2025 1:15 PM EDT Imaging Radiology [facility] [address] [place] [address] Health Maintenance Due Date Last Done Comments [...] 04/2024, 04/24/2024, Additional history exists GFR 04/19/2025 10/20/2024, 09/25, 10/10/2024, Additional history exists Diabetic Eye Exam 06/04/2025 [...] this encounter Medical Devices Implanted Type Area Wheelchair Rental Clerk Device Identifier Shelf Expiration Date Model / Serial / Lot Cath Drainage 10fr [facility]-10-038 - [id number] Implanted:Qty : 1 on 05/07/2023 at [facility] Right: Abdomen [employer] [id number] 02/15/2026 [facility]-10-03 8 / / [id number] documented as of this encounter Advance Directives [...] Power of Attor cristin? No Care Teams Fraud Investigator Relationship Specialty Start Date End Date Denis Urbina MD [address] [place] [address] PCP - General Family Medicine 04/17/22 documented as of this encounter
--- OUTSIDE RECORDS SUMMARY | 2025-01-09 05:31 | External Medical Summary | Summary of Care ---
Author Name Unknown Organization [facility] Address [address] [place] [address] Phone [phone] Care Team Providers Care Life Scientists Name Role Phone Denis Urbina MD Primary Care Provider + [phone] Encounter Details Date Type Department Care Team (Late st Contact Info) Description 10/27/2024 Orders Only Lab Mobile Phlebotomy [facility] [address] [place] [address] Franki Vidal, DO [address] [place] [address] Heart failure, diastolic, with acute decompensation (HCC)* Allergies No known active allergiesdocumented as [...] 06/27/20 22 Active FreeStyle Maria Luz 2 [place] Device Use as directed . 1 Each 06/27/20 22 Active BD Insulin Syringe U/F 30G X 1/2" 0.3 ML (Insulin Syringe-Needle U-100)Indications: Type 2 diabetes mellitus without complication (HCC),Type 2 diabetes mellitus without complication, with long-term current use of insulin (HCC) INJECT UNDER THE SKIN 4 TIMES A DAY 100 Each 2 06/06/20 23 Active Droplet Pen [place] 31G X 5 MM (Insulin Pen Needle)Indications [...] on 10/20/2024 Cyanocobalamin 1000 MCG Sublingual Tablet SublingualIndicati ons:B12 [...] every evening. 90 Tablet 06/04/20 24 Active Vitamin D3 50 MCG (2000 UT) Oral CapsuleIndications :Vitamin D deficiency Take 1 Capsule by mouth in the morning. Every morning.. 90 Capsule 06/04/20 24 Active Carvedilol 3.125 MG Oral [...] in the morning. 28 Patch 10/11/19 Active Ammonium Lactate 12 % External Cream [...] IZ PRN 04/17/2024 04/17/2025 Active lidocaine-epinephrine 2 %-1:285868 inj 6 mgIndications:Moderate nonproliferative diabetic retinopathy of [...] and hypercapnia 06/28/2022 01/16/2024 Reactive airway disease 06/28/[address]222 12/2023 Rhinovirus infection 06/28/2022 024 Bacterial pneumonia 06/28/2022 01/16/20 Leukocytosis 06/28/2022 05/10/2023 Kidney disease, chronic, sta ge III (GFR 30-59 ml/min) 06/28/2022 01/03/2024 Heart failure, diastolic, wi th acute decompensation 06/19/2022 06/13/2024 Chronic venous hypertension with ulcer 05/05/2022 06/29/2023 Diabetic retinopathy of righ t eye associated with type 2 diabetes mellitus 06/08/2021 01/16/2024 Acute appendicitis 01/29/2017 07/01/201 9 Status post laparoscopic appendectomy 01/29/2017 01/16/2024 [...] yrs 12/08/2014,03/31/2011,02/23 Pneumococcal Conjugate Vacci ne, 20-valent ([id number]) 06/06/2023 Pneumococcal Polysaccharide PPV23 (Pneumovax) 02/10/2011 Seasonal [...] Lokesh Hurtado RN documented in this encounter Plan of Treatment Upcoming Encounters Date Type Department Care Team (Late st Contact Info) Description 10/27/2024 8:00 AM EST [facility] [address] [facility] [place] [phone] Braxton Elizalde MD [address] [facility] [place] [address] 10/27/2024 8:30 AM EST PulmDiagnostic Ancillary [facility] [address] [facility] [place] [address] Mob, Pft Tech 3 [facility] [address] [facility] [place] [address] 10/28/2024 1:30 PM EST Office Visit Ophthalmology [facility] [address] [place] [address] Washington Gordon MD [address] [place] [address] 12/15/2024 4:20 PM EDT [facility] [address] [facility] [place] [phone] Elie Dixon MD [address] [facility] [place] [address] 12/23/2024 10:30 AM EDT Office Visit Ophthalmology [facility] [address] [place] [address] Archana Nava MD [address] [place] [address] 12/24/2024 10:30 AM EDT [facility] [address] [facility] [place] [address] Angela Briggs CRNP [address] [facility] [place] [address] 01/22/2025 1:15 PM EDT Imaging Radiology [facility] [address] [place] [address] Scheduled Orders Name Type Priority Associated Diagnoses Orde r Schedule CBC Lab Routine Heart failure, diastolic, with acute decompensation (HCC) Expected: 10/27/2024, Expires: 10/27/2025 BASIC METABOLIC PANEL Lab Routine Heart failure, diastolic, with acute decompensation (HCC) Expected: 10/27/2024, Expires: 10/27/2025 Health Maintenance Due Date Last Done Comments [...] ASSESSMENT COMPLETED IN PAST YEAR FOR COPD 10/10/2025 10/10/2024 Lipid Panel 04/24/2029 04/24/2024, 08/0 09/2023, 12/26/2023, [...] this encounter Medical Devices Implanted Type Area Gun Number Device Identifier Shelf Expiration Date Model / Serial / Lot Cath Drainage 10fr [facility]-10-038 - [id number] Implanted:Qty : 1 on 05/07/2023 at [facility] Right: Abdomen [employer] [id number] 02/15/2026 [facility]-10-03 8 / / [id number] documented as of this encounter Visit Diagnoses Diagnosis Heart failure, diastolic, with acute decompensation (HCC)- Primary Acute on chronic diastolic heart failure documented in this encounter Advance Directives [...] Power of Attor cristin? No Care Teams Life Scientists Relationship Specialty Start Date End Date Denis Urbina MD [address] [place] [address] PCP - General Family Medicine 04/17/22 documented as of this encounter
--- OUTSIDE RECORDS SUMMARY | 2025-01-09 05:31 | External Medical Summary ---
Author Name Unknown Address Unknown Organization K01:[facility] - [facility] [address] [facility] [address] [facility] [address] Laboratory Report Ordering Provider Test Date Status NAYANA SANTOS 10/27/2024 06:34:18 Final Observation Date Value Abnormality Reference (Units ) Status WBC, Total 10/27/2024 06:34:18 6.71 4.00-10.80 (K/uL) Final RBC 10/27/2024 06:34:18 4.14 3.85-5.15 (M/uL) Final Hemoglobin 10/27/2024 06:34:18 11.5 Below low normal 12.0-15.3 (g/dL) Final HCT 10/27/2024 06:34:18 37.8 36.0-45.2 (%) Final MCV 10/27/2024 06:34:18 91.3 81.5-97.5 (fL) Final MCH 10/27/2024 06:34:18 27.8 27.0-34.0 (pg) Final MCHC 10/27/2024 06:34:18 30.4 32.0-36.0 (g/dL) Final RDW 10/27/2024 06:34:18 16.0 11.5-15.5 (%) Final Platelets 10/27/2024 06:34:18 179 140-400 (K/uL) Final MPV 10/27/2024 06:34:18 10.3 6.6-11.1 (fL) Final Nucleated erythrocytes/100 leukocytes [Ratio] in Blood by Automated count 10/27/2024 06:34:18 0 <=0 (/100 WBCs) Final Performing Location [facility] [address] [facility] [address]
--- OUTSIDE RECORDS SUMMARY | 2025-01-09 05:31 | External Medical Summary | Summary of Care ---
Author Name Unknown Organization [facility] Address [address] [place] [address] Phone [phone] Care Team Providers Care Pharmaceutical Laboratory Technician Name Role Phone Denis Urbina MD Primary Care Provider + [phone] Reason for Visit * Reason Comments NEW PATIENT Encounter Details Date Type Department Care Team (Late st Contact Info) Description 10/27/2024 8:00 AM EST Office Visit Pulmonary Medicine [facility] [address] [place] [address] Braxton Elizalde MD [address] [place] [address] Chronic respiratory failure with hypoxia and hypercapnia [...] 1 Each Active FreeStyle Maria Luz 2 [place] Device Use as directed . 1 Each 022 Active BD Insulin Syringe U/F 30G X 1/2" 0.3 ML (Insulin Syringe-Needle U-100)Indications :Type 2 diabetes mellitus without complication (HCC),Type 2 diabetes mellitus without complication, with long-term current use of insulin (HCC) INJECT UNDER THE SKIN 4 TIMES A DAY 100 Each 2 023 Active Droplet Pen [place] 31G X 5 MM (Insulin Pen Needle)Indication s:Type 2 diabetes mellitus without complication, with long-term current use of insulin (HCC) inject subcutaneously four times a day 1000 Each 023 Active OneTouch UltraSoft LancetsIndication s:Type 2 diabetes mellitus without complication, unspecified whether shelter insulin use (HCC) Use as directed 4 [...] IZ PRN 04/17/2024 04/17/2025 Active lidocaine-epinephrine 2 %-1:658589 inj 6 mgIndications:Moderate nonproliferative diabetic retinopathy of [...] yrs 12/08/2014,03/31/2011,02/23 Pneumococcal Conjugate Vacci ne, 20-valent ([id number]) 06/06/2023 Pneumococcal Polysaccharide PPV23 (Pneumovax) 02/10/2011 Seasonal [...] been on NIV given she's at a snf and she had the astral at home [...] / Pulmonary Medicine Name: Crystal Mcgraw Location: @[facility]@ Date: 10/27/2024 Time: 8:46 AM Clinical Summary: [...] related to related to atelectasis or pneumonia. Obxqc-[id number]-nb evaluation is recommended in 6-8 weeks to [...] CHF/volume overload. Impression & Recommendations: -B/c at snf currently, unable to bring Astral ventilator with her -Given hypercapnia noted on in office ABG, snf orders for auto bi-level PAP with IPAP max 20 cm H2O, EPAP min 8 cm H2O and PS 6 cm H2O with supplemental oxygen at 4 L/min with mask fitting -Duoneb administered today in office along with IM solumedrol 40 mg -PCR ordered and obtained -senior care order of Prednisone taper -Script for tamiflu [...] 10/28/2024 1:30 PM EST Office Visit Ophthalmology [facility] [address] [place] [address] Washington Gordon MD [address] [place] [address] [place] [address] 11/10/2024 8:00 AM EST Office Visit Pulmonary Medicine [facility] Kymberly Zhang [address] [facility] [place] [address] Braxton Elizalde MD [address] [facility] [facility] [address] 12/15/2024 4:20 PM EDT Office Visit Nephrology [facility] [place] [address] [facility] [place] [address] Elie Dixon MD [address] [place] [facility] [place] [address] 12/23/2024 10:30 AM EDT Office Visit Ophthalmology [facility] [address] [place] [address] [place] [address] [place] [address] 12/24/2024 10:30 AM EDT Office Visit Cardiology [facility] [address] [place] [address] Angela Briggs CRNP [address] [place] [address] 01/22/2025 1:15 PM EDT Imaging Radiology [facility] [address] [place] [address] Health Maintenance Due Date Last Done Comments [...] this encounter Medical Devices Implanted Type Area Patient Financial Representative Device Identifier Shelf Expiration Date Model / Serial / Lot Cath Drainage 10fr [facility]-10-038 - [id number] Implanted:Qty : 1 on 05/07/2023 at [facility] Right: Abdomen [employer] [id number] 02/15/2026 C-10-03 8 / / [id number] documented as of this encounter Procedures Procedure Name Priority Date/Time Associated Diagnosis Comments RESPIRATORY PATHOGEN PANEL, PCR Routine 10/27/2024 10:08 AM EST Chronic respiratory failure with hypoxia and hypercapnia (HCC) documented in this encounter Results * (ABNORMAL) RESPIRATORY PATHOGEN PANEL, PCR (10/27/2024 10:08 AM EST) Adenovirus by PCR Negative Negative 025 4:46 PM EST [facility] Coronavirus 229E by PCR Negative Negative 10/27/2024 4:46 PM EST [facility] Coronavirus HKU1 by PCR Negative Negative 10/27/2024 4:46 PM EST [facility] Coronavirus NL63 by PCR Negative Negative 10/27/2024 4:46 PM EST [facility] Coronavirus OC43 by PCR Positive(A) Negative 10/27/2024 4:46 PM EST [facility] Comment:Coronavirus OC43 det ected by PCR (amplified probe). Coronavirus SARS-CoV-2 by PCR Negative Negative 10/27/2024 4:46 PM EST [facility] Human Metapneumovirus by PCR Negative Negative 10/27/2024 4:46 PM EST [facility] Rhinovirus/Enterov irus by PCR Negative Negative 10/27/2024 4:46 PM EST [facility] Influenza A Virus by PCR Negative Negative 10/27/2024 4:46 PM EST [facility] Influenza B Virus by PCR Negative Negative 10/27/2024 4:46 PM EST [facility] Parainfluenza Virus 1 by PCR Negative Negative 10/27/2024 4:46 PM EST [facility] Parainfluenza Virus 2 by PCR Negative Negative 10/27/2024 4:46 PM EST [facility] Parainfluenza Virus 3 by PCR Negative Negative 10/27/2024 4:46 PM EST [facility] Parainfluenza Virus 4 by PCR Negative Negative [...] Negative Negative 10/27/2024 4:46 PM EST [facility] Comment: The primers that detect Rhinovirus may cross react with some Enterorviruses. The validation of bronchial specimens, tracheal aspirates, and throats for this assay was developed and performance characteristics determined by [employer]. The validation of alternate specimen types has not been cleared or approved by the U.S. Food and Drug Administration (FDA). It has been determined that such clearance or approval is not necessary. Upper Respiratory Nasopharyngeal swab / Unknown Non-blood Collection / Unknown 10/27/2024 10:08 AM EST 10/27/2024 10:32 AM EST Domenica Lewis MD LAB MICRO - GENERAL ORDERAB LES Final Result [facility] [address] [place] [address] documented in this encounter Visit Diagnoses Diagnosis Chronic respiratory failure with hypoxia and hypercapnia (HCC)- Primary Type 2 diabetes mellitus with diabetic polyneuropathy, with long-term current use of insulin ([facility]) Sleep apnea, unspecified type Severe persistent asthma [...] polyneuropathy, with long-term current use of insulin ([facility]),Sleep apnea, unspecified type,Severe persistent asthma with exacerbation [...] 09/15/2023 6:16 AM 09/21/2023 11:59 PM This ord er reflects the patients wishes and were consensually [...] Power of Attor cristin? No Care Teams Pharmaceutical Laboratory Technician Relationship Specialty Start Date End Date Denis Urbina MD [address] [place] [address] PCP - General Family Medicine 04/17/22 documented as of this encounter
--- OUTSIDE RECORDS SUMMARY | 2025-01-09 05:31 | External Medical Summary ---
Author Name Unknown Address Unknown Organization K01:[facility] [address] [facility] [address] Laboratory Report Ordering Provider Test Date Status NAYANA SANTOS 10/27/2024 06:34:18 Final Observation Date Value Abnormality Reference (Units ) Status BUN 10/27/2024 06:34:18 50 Above high normal 6-20 (mg/dL) Final Creatinine 10/27/2024 06:34:18 1.7 Above high normal 0.5-1.0 (mg/dL) Final Glomerular filtration rate/1.73 sq M.predicted [Volume Rate/Area] in Serum, Plasma or Blood by Creatinine-based formula (CKD-EPI) 10/27/2024 06:34:18 32 Below low normal >=60 (mL/min) Final eGFR is calculated based on the CKD-EPI 2020 equation. Sodium 10/27/2024 06:34:18 135 135-146 (m mol/L) Final Potassium 10/27/2024 06:34:18 4.4 3.5-5.1 (m mol/L) Final Cl 10/27/2024 06:34:18 91 Below low normal 98- 107 (mmol/L) Final CO2 10/27/2024 06:34:18 36 Above high normal 22 -32 (mmol/L) Final Anion gap 10/27/2024 06:34:18 8 7-15 (mmol /L) Final Glucose 10/27/2024 06:34:18 195 Above high normal 70 -120 (mg/dL) Final Calcium 10/27/2024 06:34:18 8.6 8.4-10.2 ( mg/dL) Final Performing Location [facility] [address] [facility] [address]
--- OUTSIDE RECORDS SUMMARY | 2025-01-09 05:31 | External Medical Summary | Summary of Care ---
Author Name Unknown Organization [facility] Address [address] [place] [address] Phone [phone] Care Team Providers Care Mailroom Coordinator Name Role Phone Denis Urbina MD Primary Care Provider + [phone] Reason for Visit * Reason Onset Date Comments Skilled Visit 10/25/2024 Encounter Details Date Type Department Care Team (Latest Contact Info) Description 10/17/2024 11:00 AM EST Mcfp Visit [facility] [address] [place] [address] Deepika Bates CRNP [address] [place] [address] Type 2 diabetes mellitus with diabetic polyneuropathy, with long-term current use of insulin ([facility]; Chronic respiratory failure with hypoxia and hypercapnia ([facility]); Heart failure, diastolic, with acute decompensation ([facility]); COPD, group C, by GOLD 2017 classification ([facility]); Acute on chronic diastolic (congestive) heart failure ([facility]); Chronic kidney disease, stage 4 (severe) ([facility]); Skin ulcer of multiple sites of lower extremity, unspecified laterality, limited to breakdown of skin ([facility]); HTN, goal below 140/90; PAOLA (obstructive sleep apnea); Gastroesophageal reflux disease without esophagitis Allergies No known active allergiesdocumented as of this encounter (statuses as of 10/25/2024) Medications Albuterol Sulfate (2.5 MG/3ML) 0.083% Inhalation [...] 06/27/20 22 Active FreeStyle Maria Luz 2 [place] Device Use as directed . 1 Each 06/27/20 22 Active BD Insulin Syringe U/F 30G X 1/2" 0.3 ML (Insulin Syringe-Needle U-100)Indications: Type 2 diabetes mellitus without complication (HCC),Type 2 diabetes mellitus without complication, with long-term current use of insulin (HCC) INJECT UNDER THE SKIN 4 TIMES A DAY 100 Each 2 06/06/20 23 Active Droplet Pen [place] 31G X 5 MM (Insulin Pen Needle)Indications :Type 2 diabetes mellitus without complication, with long-term current use of insulin (HCC) inject subcutaneously four times a day 1000 Each 06/07/20 23 Active OneTouch UltraSoft LancetsIndications :Type 2 diabetes mellitus without complication, unspecified whether senior care insulin use (HCC) Use as directed [...] the morning. 28 Patch 10/11/19 25 Active Ammonium Lactate 12 % External [...] Ongoing therapy 45 Tablet 10/10/19 25 Active Hospital, Clinic, or Other Facility [...] IZ PRN 04/17/2024 04/17/2025 Active lidocaine-epinephrine 2 %-1:143480 inj 6 mgIndications:Moderate nonproliferative diabetic retinopathy of both eyes with macular edema associated with type 2 diabetes mellitus (HCC),Optic nerve drusen, left,6th nerve palsy, right,Combined forms of age-related cataract of both eyes 6 mg IJ PRN 04/17/2024 04/17/2025 Active documented as of this encounter (statuses as of 10/25/2024) Active Problems Problem Noted Date Diagnosed Date [...] as of this encounter (statuses as of 10/25/2024) Resolved Problems Problem Noted Date Diagnosed Date [...] as of this encounter (statuses as of 10/25/2024) Immunizations Name Administration Dates Next Due Covid-19 Ad26, Single Dose ([place]/J&J) 021 Hepatitis B, 20+ yrs 12/08/2014,03/31/2011,02/23 Pneumococcal Conjugate Vacci ne, 20-valent ([id number]) 06/06/2023 Pneumococcal Polysaccharide PPV23 (Pneumovax) 02/10/2011 Seasonal [...] No 01/22/2024 Does the household have a [facility] source of income? (Household - for [...] Progress Notes * Deepika Bates CRNP - 10/25/2024 1:37 PM EST Name: Meera Mcgraw Date of :1955 TRANSITION EVENT: Type: skilled Date: October 13 Code Status: Full Code This note pertains to care provided at [facility]. Please see facility medical record for original note. This note is not to be edited or addended in [facility]. Editing or addending needs to occur in the facilities medical record. Subjective: Meera Mcgraw is a 69 year old female. Patient being seen for skilled visit. Chief Complaint Patient presents with Skilled Visit HPI: This is a 69 yo female who was seen at the bedside today for skilled visit. 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 Patient received 2 doses of permethrin [...] by Wound Care and recommendedfollow [facility] on discharge. Patient was hemodynamically stable at the time ofdischarge. HPI: This is a 69 yo female who was seen at the bedside today for skilled visit. She is resting comfortably in bed and offers no complaints. Reports she is doing well in PT OT and she is regaining strength She is awake, alert, Ox3. Denies urinary sx. Denies pain BLE She denies pain. Denies fever and chills. Reports usual redness of BLE. She is following with wound care. Denies ABD pain, N/V/D. Denies PUENTE Appetite is good. Sleeping well. [...] with long-term current use of insulin ([facility]) Right abducens nerve palsy Obesity hypoventilation syndrome ([facility]) Lesion of bone of cervical spine BMI 40.0-44.9, adult ([facility]) Anxiety state Choledocholithiasis Chronic respiratory failure with hypoxia and hypercapnia ([facility]) Moderate nonproliferative diabetic retinopathy of both eyes with macular edema associated with type2 diabetes mellitus ([facility]) Heart failure, systolic and diastolic, acute on chronic ([facility]) Acute respiratory failure with hypercapnia ([facility]) Food insecurity Chronic kidney disease with symptom management only, stage 3 (moderate) ([facility]) COPD, group C, by GOLD 2017 classification ([facility]) Onychomycosis of nail of digit of hand Acute renal failure superimposed on stage 3b chronic kidney disease (HCC) Chronic kidney disease, stage 4 (severe) ([facility]) Venous stasis ulcers of both lower extremities (HCC) Hyperkalemia Cellulitis Acute on chronic respiratory failure with hypercapnia ([facility]) Excoriation Past Medical History: Diagnosis Date Acute appendicitis 01/29/2017 Acute respiratory failure with hypoxia and hypercapnia ([facility]) 06/19/2022 Chronic venous hypertension with ulcer ([facility]) 05/05/2022 Controlled substance agreement signed 01/28/2017 COPD exacerbation ([facility]) 12/26/2015 COPD, severity to be determined ([facility]) 12/26/2015 Diabetic retinopathy of right eye associated with type 2 diabetes mellitus ([facility]) 06/08/2021 Dyslipidemia 12/26/2015 Dyslipidemia, goal to be determined Gastroesophageal reflux disease without esophagitis 05/04/2023 Heart failure, diastolic, with acute decompensation ([facility]) 06/19/2022 Heart failure, diastolic, with acute decompensation ([facility]) 2023-10-28 Adding I50.33-Heart failure, diastolic, with acute decompensation ([facility]) Dx to History HTN, goal below 140/90 11/07/2014 HTN, goal to be determined Hypoxia 12/26/2015 Influenza A 12/29/2015 Kidney disease, chronic, stage III (GFR 30-59 ml/min) ([facility]) 06/28/2022 Major depressive disorder 07/15/2007 ICD-10 update of inactive term Obesity hypoventilation syndrome ([facility]) 06/28/2022 Obesity, BMI not known Personal history of colonic polyps PPD positive Restless leg syndrome Right abducens nerve palsy 06/19/2022 Sleep apnea SOB (shortness of breath) 12/26/2015 T2DM (type 2 diabetes mellitus) ([facility]) dx age 55 Type 2 diabetes mellitus with diabetic polyneuropathy, with long-term current use of insulin ([facility]) 12/10/2019 Past Surgical History: Procedure Laterality [...] [facility] FLUORESCEIN ANGIOGRAPHY MULTIFRAME 01/12/2017 OD > OS / Dr. Brown FX/DIS,RADIAL,OPN,INTRAARTIC,INT FIX,[address] Savage INJECTION OF EYE DRUG Bilateral 07/15/2024 Eylea OU # 3 Dr Gordon IR ASPIRATION ABSCESS/COLLECTION 05/07/2023 IR PROCEDURE NOT PERFORMED DOCUMENTATION ONLY 05/07/2023 LAPAROSCOPY;APPENDECTOMY N/A 01/28/2017 LAPAROSCOPIC APPENDECTOMY performed by [place] Newell MD at OR [facility] PARTIAL REMOVAL OF COLON 2000 left [...] Stability Do you currently live in a custodial or have no steady place to sleep [...] list as this cannot be edited in EPIC. Review of Systems: all areas negative except [...] 2nd dose and then contact provider. ASSESSMENT: Type 2 diabetes mellitus with diabetic polyneuropathy, with long-term current use of insulin (HCC) (Primary) Chronic respiratory failure with hypoxia and hypercapnia (HCC) Heart failure, diastolic, with acute decompensation (HCC) COPD, group C, by GOLD 2017 classification (HCC) Acute on chronic diastolic (congestive) heart failure (HCC) Chronic kidney disease, stage 4 (severe) (HCC) Skin ulcer of multiple sites of lower extremity, unspecified laterality, limited to breakdown of skin (HCC) HTN, goal below 140/90 PAOLA (obstructive sleep apnea) Gastroesophageal reflux disease without esophagitis PLAN: Continue present medication(s):as ordered. Residential Home Treatment Given: Other none Electronically signed by: AZEEM Mauricio Over 62 minutes were spent in this visit more than half the time was spent counselling or coordinating care. documented in this encounter Plan of Treatment Upcoming Encounters Date Type Department Care Team (Late st Contact Info) Description 10/27/2024 8:00 AM EST Office Visit Pulmonary Medicine [facility] K[facility]ly MIRANDA [facility] [address] [facility] [place] [phone] Braxton Elizalde MD [address] [place], [place] [address] [address] 10/27/2024 8:30 AM EST PulmDiagnostic Ancillary Pulmonary Medicine [facility] Kymberly MIRANDA [address] [facility] [place] [phone] Mob, Pft Tech 3 [facility] [address] [facility] [place] [address] 10/28/2024 1:30 PM EST Office Visit Ophthalmology [facility] [address] [place] [address] Washington Gordon MD [address] [facility] [place] [address] 12/15/2024 4:20 PM EDT [facility] [address] [facility] [place] [phone] Elie Dixon MD [address] [facility] [place] [address] 12/23/2024 10:30 AM EDT Office Visit Ophthalmology [facility] [address] [place] [address] [place] [address] [place] [address] 12/24/2024 10:30 AM EDT [facility] [address] [facility] [place] [address] Angela Briggs CRNP [address] [facility] [place] 01/22/2025 1:15 PM EDT Imaging Radiology [facility] [address] [place] [address] Health Maintenance Due Date Last Done Comments [...] this encounter Medical Devices Implanted Type Area Jersey Knitter Device Identifier Shelf Expiration Date Model / Serial / Lot Cath Drainage 10fr [facility]-10-038 - [id number] Implanted:Qty : 1 on 05/07/2023 at [facility] Right: [employer]domen [employer] [id number] 02/15/2026 [facility]-10-03 8 / / [id number] documented as of this encounter Visit Diagnoses Diagnosis Type 2 diabetes mellitus with diabetic polyneuropathy, with long-term current use of insulin (HCC)- Primary Chronic respiratory failure with hypoxia and hypercapnia (HCC) Heart failure, diastolic, with acute decompensation (HCC) Acute on chronic diastolic heart failure COPD, group C, by GOLD 2017 classification ([facility]) Acute on chronic diastolic (congestive) heart failure (HCC) Chronic kidney disease, stage 4 (severe) ([facility]) Skin ulcer of multiple sites of lower extremity, unspecified laterality, limited to breakdown of skin (HCC) HTN, goal below 140/90 Unspecified essential hypertension PAOLA (obstructive sleep apnea) Obstructive sleep apnea (adult) (pediatric) Gastroesophageal reflux disease without esophagitis Esophageal reflux [...] Power of Attor cristin? No Care Teams Mailroom Coordinator Relationship Specialty Start Date End Date Denis Urbina MD [address] [place] [address] PCP - General Family Medicine 04/17/22 documented as of this encounter
--- OUTSIDE RECORDS SUMMARY | 2025-01-09 05:32 | External Medical Summary | Summary of Care ---
Author Name Unknown Organization [facility] Address [address] [place] [address] Phone [phone] Care Team Providers Care Hospitalist Program Director Name Role Phone Denis Urbina MD Primary Care Provider + [phone] Reason for Visit * Reason Onset Date Comments Custodial Visit - Admission 10/14/2024 Encounter Details Date Type Department Care Team (Latest Contact Info) Description 10/13/2024 1:00 PM EST Custodial Visit [facility], [facility] [address] [place] [address] Deepika Bates CRNP [address] [place] [address] Skin ulcer of multiple sites of lower extremity, unspecified laterality, limited to breakdown of skin ([facility])*; Type 2 diabetes mellitus with diabetic polyneuropathy, with long-term current use of insulin ([facility]); Chronic respiratory failure with hypoxia and hypercapnia ([facility]); Chronic kidney disease, stage 4 (severe) ([facility]); Heart failure, diastolic, with acute decompensation ([facility]); Rash and nonspecific skin eruption; Acute on chronic diastolic (congestive) heart failure ([facility]); COPD, group C, by GOLD 2017 classification ([facility]); Chronic hypoxemic respiratory failure (HCC); HTN, goal below 140/90; Chronic kidney disease, stage 3b ([facility]) Allergies No known active allergiesdocumented as of this encounter (statuses as of 10/14/2024) Medications Albuterol Sulfate (2.5 MG/3ML) 0.083% Inhalation [...] 06/27/20 22 Active FreeStyle Maria Luz 2 [place] Device Use as directed . 1 Each 06/27/20 22 Active BD Insulin Syringe U/F 30G X 1/2" 0.3 ML (Insulin Syringe-Needle U-100)Indications: Type 2 diabetes mellitus without complication (HCC),Type 2 diabetes mellitus without complication, with long-term current use of insulin (HCC) INJECT UNDER THE SKIN 4 TIMES A DAY 100 Each 2 06/06/20 23 Active Droplet Pen [place] 31G X 5 MM (Insulin Pen Needle)Indications [...] NOON,Right eye, Informant: Patient, Pharmacy, Reported on 10/03/2024 Cyanocobalamin 1000 MCG Sublingual Tablet SublingualIndicati ons:B12 [...] morning. 90 Tablet 11 10/10/19 25 Active Cyclobenzaprine HCl 5 MG Oral Tablet (Flexeril) Take 1 Tablet by mouth every 8 hours as needed for Muscle spasms for up to 7 days. 30 Tablet 10/10/19 25 025 Active Nicotine 21 MG/24HR Transdermal Patch 24 [...] IZ PRN 04/17/2024 04/17/2025 Active lidocaine-epinephrine 2 %-1:047884 inj 6 mgIndications:Moderate nonproliferative diabetic retinopathy of both eyes with macular edema associated with type 2 diabetes mellitus (HCC),Optic nerve drusen, left,6th nerve palsy, right,Combined forms of age-related cataract of both eyes 6 mg IJ PRN 04/17/2024 04/17/2025 Active documented as of this encounter (statuses as of 10/14/2024) Active Problems Problem Noted Date Diagnosed Date [...] as of this encounter (statuses as of 10/14/2024) Resolved Problems Problem Noted Date Diagnosed Date [...] with ulcer 05/05/2022 06/29/2023 Diabetic retinopathy of [facility] eye associated with type 2 diabetes [...] as of this encounter (statuses as of 10/14/2024) Immunizations Name Administration Dates Next Due Covid-19 Ad26, Single Dose ([place]/J&J) 021 Hepatitis B, 20+ yrs 12/08/2014,03/31/2011,02/23 Pneumococcal Conjugate Vacci ne, 20-valent ([id number]) 06/06/2023 Pneumococcal Polysaccharide PPV23 (Pneumovax) 02/10/2011 Seasonal [...] No 01/22/2024 Does the household have a [facility] source of income? (Household - for ages [...] Assessment Author No 10/03/2024 7:48 PM Lokesh Church, RN * Are you blind or do [...] Progress Notes * Deepika Bates CRNP - 10/14/2024 12:30 PM EST Name: Meera Mcgraw Date of :1955 TRANSITION EVENT: Type: SNF admission Date: October 13 Code Status: Full Code This note pertains to care provided at [facility]. Please see facility medical record for original note. This note is not to be edited or addended in [facility]. Editing or addending needs to occur in the facilities medical record. Subjective: Meera Mcgraw is a 69 year old female. Patient being seen for skilled admission Chief Complaint Patient presents with Custodial Visit - Admission HPI: This is a 69 yo female who was seen at the bedside today for skilled admission. She is admitted to [facility] from [facility] where she was hospitalized from 10/02/2024-10/10/2024 [...] diuresed with IV Lasix and transitioned to WATER ANALYST torsemide. Patient received 2 doses of permethrin [...] by Wound Care [facility] Patient was hemodynamically stable at the time ofdischarge. HPI: This is a 69 yo female who was seen at the bedside today for skilled admission. She is resting comfortably in bed and offers no complaints. She denies pain. Denies fever and chills. Reports redness of BLE. She is following with wound care. Denies ABD pain, N/V/D. Denies urinary sx. Appetite is good. Sleeping well. Taking medications [...] polyneuropathy, with long-term current use of insulin ([facility]) Right abducens nerve palsy Obesity hypoventilation syndrome (HCC) Lesion of bone of cervical spine BMI 40.0-44.9, adult ([facility]) Anxiety state Choledocholithiasis Chronic respiratory failure with hypoxia and hypercapnia ([facility]) Moderate nonproliferative diabetic retinopathy of both eyes with macular edema associated with type2 diabetes mellitus ([facility]) Heart failure, systolic and diastolic, acute on chronic (HCC) Acute respiratory failure with hypercapnia ([facility]) Food insecurity Chronic kidney disease with symptom management only, stage 3 (moderate) ([facility]) COPD, group C, by GOLD 2017 classification ([facility]) Onychomycosis of nail of digit of hand Acute renal failure superimposed on stage 3b chronic kidney disease (HCC) Chronic kidney disease, stage 4 (severe) ([facility]) Venous stasis ulcers of both lower extremities ([facility]) Hyperkalemia Cellulitis Acute on chronic respiratory failure with hypercapnia ([facility]) Excoriation Past Medical History: Diagnosis Date Acute appendicitis 01/29/2017 Acute respiratory failure with hypoxia and hypercapnia ([facility]) 06/19/2022 Chronic venous hypertension with ulcer ([facility]) 05/05/2022 Controlled substance agreement signed 01/28/2017 COPD exacerbation ([facility]) 12/26/2015 COPD, severity to be determined ([facility]) 12/26/2015 Diabetic retinopathy of right eye associated with type 2 diabetes mellitus ([facility]) 06/08/2021 Dyslipidemia 12/26/2015 Dyslipidemia, goal to be determined Gastroesophageal reflux disease without esophagitis 05/04/2023 Heart failure, diastolic, with acute decompensation ([facility]) 06/19/2022 Heart failure, diastolic, with acute decompensation ([facility]) 2023-10-28 Adding I50.33-Heart failure, diastolic, with acute decompensation ([facility]) Dx to History HTN, goal below 140/90 11/07/2014 HTN, goal to be determined Hypoxia 12/26/2015 Influenza A 12/29/2015 Kidney disease, chronic, stage III (GFR 30-59 ml/min) ([facility]) 06/28/2022 Major depressive disorder 07/15/2007 ICD-10 update of inactive term Obesity hypoventilation syndrome ([facility]) 06/28/2022 Obesity, BMI not known Personal history of colonic polyps PPD positive Restless leg syndrome Right abducens nerve palsy 06/19/2022 Sleep apnea SOB (shortness of breath) 12/26/2015 T2DM (type 2 diabetes mellitus) ([facility]) dx age 55 Type 2 diabetes mellitus with diabetic polyneuropathy, with long-term current use of insulin ([facility]) 12/10/2019 Past Surgical History: Procedure Laterality Date [...] performed by Scotty Pearson DO at ENDOSCOPY [facility] FLUORESCEIN ANGIOGRAPHY MULTIFRAME 01/12/2017 OD > OS / Dr. Brown FX/DIS,RADIAL,OPN,INTRAARTIC,INT FIX,[address] Savage INJECTION OF EYE DRUG Bilateral 07/15/2024 Eylea OU # 3 Dr Gordon IR ASPIRATION ABSCESS/COLLECTION 05/07/2023 IR PROCEDURE NOT PERFORMED DOCUMENTATION ONLY 05/07/2023 LAPAROSCOPY;APPENDECTOMY N/A 01/28/2017 LAPAROSCOPIC APPENDECTOMY performed by [place] Newell MD at OR [facility] PARTIAL REMOVAL OF COLON 2000 [...] Stability Do you currently live in a penitentiary or have no steady place to sleep [...] list as this cannot be edited in [employer]. Review of Systems: all areas negative except [...] 2nd dose and then contact provider. ASSESSMENT: Skin ulcer of multiple sites of lower extremity, unspecified laterality, limited to breakdown of skin (HCC) (Primary) Type 2 diabetes mellitus with diabetic polyneuropathy, with long-term current use of insulin (HCC) Chronic respiratory failure with hypoxia and hypercapnia (HCC) Chronic kidney disease, stage 4 (severe) (HCC) Heart failure, diastolic, with acute decompensation (HCC) Rash and nonspecific skin eruption Acute on chronic diastolic (congestive) heart failure (HCC) COPD, group C, by GOLD 2017 classification (HCC) Chronic hypoxemic respiratory failure (HCC) HTN, goal below 140/90 Chronic kidney disease, stage 3b (HCC) PLAN: Continue present medication(s):as ordered. Snf Home Treatment Given: Other none Electronically signed by: AZEEM Mauricio Over 62 minutes were spent in this visit more than half the time was spent counselling or coordinating care. documented in this encounter Plan of Treatment Upcoming Encounters Date Type Department Care Team (Late st Contact Info) Description 10/14/2024 2:00 PM EST Office Visit Wound Care Angie Teran [address] [address] Paul Pegn, [address] [address] 10/27/2024 8:00 AM EST Office Visit Pulmonary Medicine [facility] Kymberly MIRANDA [address] [place] [address] Braxton Elizalde MD [address] [facility] [place] [address] 10/28/2024 1:30 PM EST Office Visit Ophthalmology [facility] [address] [place] [address] Washington Gordon MD [address] [address] 12/15/2024 4:20 PM EDT Office Visit Nephrology [facility] Kymberly MIRANDA [address] [place] [address] Elie Dixon MD [address] [place] [address] 12/23/2024 10:30 AM EDT Office Visit Ophthalmology [facility] [address] [place] [address] Archana Nava MD [address] [place] [address] 12/24/2024 10:30 AM EDT [facility] [address] [facility] [place] [address] Angela Briggs CRNP [address] [facility] [place] [address] 01/22/2025 1:15 PM EDT Imaging Radiology [facility] [address] [place] [address] Health Maintenance Due Date Last Done Comments [...] 08/0 04/2024, 04/24/2024, Additional history exists GFR 04/12/2025 10/13/2024, 09/24, 10/09/2024, Additional history exists Diabetic Eye Exam 06/04/2025 [...] this encounter Medical Devices Implanted Type Area Acute Dialysis Nurse Device Identifier Shelf Expiration Date Model / Serial / Lot Cath Drainage 10fr [employer]-10-038 - [id number] Implanted:Qty : 1 on 05/07/2023 at [facility] Right: Abdomen [employer] [facility] [id number] 02/15/2026 [facility]-10-03 8 / / [id number] documented as of this encounter Visit Diagnoses Diagnosis Skin ulcer of multiple sites of lower extremity, unspecified laterality, limited to breakdown of skin (HCC)- Primary Type 2 diabetes mellitus with diabetic polyneuropathy, with long-term current use of insulin (HCC) Chronic respiratory failure with hypoxia and hypercapnia (HCC) Chronic kidney disease, stage 4 (severe) (HCC) Heart failure, diastolic, with acute decompensation (HCC) Acute on chronic diastolic heart failure Rash and nonspecific skin eruption Rash and other nonspecific skin eruption Acute on chronic diastolic (congestive) heart failure (HCC) COPD, group C, by GOLD 2017 classification (HCC) Chronic hypoxemic respiratory failure (HCC) Chronic respiratory failure HTN, goal below 140/90 Unspecified essential hypertension Chronic kidney disease, stage 3b (HCC) documented [...] Power of Attor cristin? No Care Teams Hospitalist Program Director Relationship Specialty Start Date End Date Denis Urbina MD [address] [place] [address] PCP - General Family Medicine 04/17/22 documented as of this encounter
--- OUTSIDE RECORDS SUMMARY | 2025-01-09 05:32 | External Medical Summary | Summary of Care ---
Author Name Unknown Organization [facility] Address [address] [place] [address] Phone [phone] Care Team Providers Care Figurine Maker Name Role Phone Denis Urbina MD Primary Care Provider [phone] Reason for Visit * Reason Onset Date Comments Hospital Follow-Up 10/16/2024 Encounter Details Date Type Department Care Team (Late st Contact Info) Description 10/16/2024 Telephone Access Center, [place] [address] [facility] *DO NOT REMOVE THIS DEPARTMENT* [place] [address] Services, Scheduling [address] [place] [address] Hospital Follow-Up Allergies No known active allergiesdocumented as of this encounter (statuses as of 10/17/2024) Medications Albuterol Sulfate (2.5 MG/3ML) 0.083% Inhalation [...] 06/27/20 22 Active FreeStyle Maria Luz 2 [place] Device Use as directed . 1 Each 06/27/20 22 Active BD Insulin Syringe U/F 30G X 1/2" 0.3 ML (Insulin Syringe-Needle U-100)Indications: Type 2 diabetes mellitus without complication (HCC),Type 2 diabetes mellitus without complication, with long-term current use of insulin (HCC) INJECT UNDER THE SKIN 4 TIMES A DAY 100 Each 2 06/06/20 23 Active Droplet Pen [place] 31G X 5 MM (Insulin Pen Needle)Indications :Type 2 diabetes mellitus without complication, with long-term current use of insulin (HCC) inject subcutaneously four times a day 1000 Each 06/07/20 23 Active OneTouch UltraSoft LancetsIndications :Type 2 diabetes mellitus without complication, unspecified whether intermediate card tender insulin use (HCC) Use as directed 4 [...] IZ PRN 04/17/2024 04/17/2025 Active lidocaine-epinephrine 2 %-1:128623 inj 6 mgIndications:Moderate nonproliferative diabetic retinopathy of both eyes with macular edema associated with type 2 diabetes mellitus (HCC),Optic nerve drusen, left,6th nerve palsy, right,Combined forms of age-related cataract of both eyes 6 mg IJ PRN 04/17/2024 04/17/2025 Active documented as of this encounter (statuses as of 10/17/2024) Active Problems Problem Noted Date Diagnosed Date [...] as of this encounter (statuses as of 10/17/2024) Resolved Problems Problem Noted Date Diagnosed Date [...] as of this encounter (statuses as of 10/17/2024) Immunizations Name Administration Dates Next Due Covid-19 Ad26, Single Dose ([place]/J&J) 021 Hepatitis B, 20+ yrs 12/08/2014,03/31/2011,02/23 Pneumococcal Conjugate Vacci ne, 20-valent ([id number]) 06/06/2023 Pneumococcal Polysaccharide PPV23 (Pneumovax) 02/10/2011 Seasonal [...] Lokesh Hurtado RN documented in this encounter Miscellaneous Notes * Telephone Encounter - Alena Jones OSA - 10/17/2024 10:53 AM EST Pt scheduled and pt confirmed appt * Telephone Encounter - Awa Juarez OSA - 10/16/2024 12:56 PM EST Pt has a 1 week HD from [facility]- please assist. Kiko Billings Patient Name: MEERA MCGRAW([id number]) Sex: Female : 1955 PCP: DENIS URBINA Center: [address] Level of Service:[address] [place] EM[place]Y [place]PT VISIT HIGH SEVERITY&THREAT FUNCJ Types of orders made on 10/10/2024: Communication, Consult, IP Discharge, IP Post Discharge , Lab, Medications, Point of Care Testing, Point of Care Testing - Unsolicited Results Order Date:10/10/2024 Ordering User:STACY JAIMES [[id number]] Attending Provider:Silvino Chávez MD [[id number]] Authorizing Provider: Stacy Jaimes MD [[id number]] Department:[address][[id number]] Order Specific Information Order: RETURN APPT [CUSTOM: [id number]] Order #: [id number]: 1 Priority: Routine Class: Nursing Unit Department (Single Entry) -> Dermatology Appt Needed Within: (Specify # of Days, Weeks, Months) -> 1 Wk Released on: 10/10/2024 3:24 PM Priority: Routine Class: Nursing Unit Department (Single Entry) -> Dermatology Appt Needed Within: (Specify # of Days, Weeks, Months) -> 1 Wk Released on: 10/10/2024 3:24 PM documented in this encounter Plan of Treatment Upcoming Encounters Date Type Department Care Team (Late st Contact Info) Description 10/17/2024 11:20 AM EST Office Visit Wound Care Angie Teran [address] [address] Paul Peng, [address] [address] 10/20/2024 8:45 AM EST Office Visit [facility] [address] [place] [address] Mame Pugh MD [address] [place] [phone] 10/27/2024 8:00 AM EST Office Visit Pulmonary Medicine [facility] Kymber[place] MIRANDA [address] [place] [address] Braxton Elizalde MD [address] [place] [address] 10/28/2024 1:30 PM EST Office Visit Ophthalmology [facility] [address] [place] [address] [place] Gordon MD [address] [address] 12/15/2024 4:20 PM EDT Office Visit Nephrology [facility] K[place] MIRANDA [address] [place] [address] Elie Dixon MD [address] [place] [address] 12/23/2024 10:30 AM EDT Office Visit Ophthalmology [facility] [address] [place] [address] Archana Nava MD [address] [place] [address] 12/24/2024 10:30 AM EDT Office Visit Cardiology [facility] [address] [facility] [place] [address] Angela Briggs, CAR RENTAL AGENT [address] [place] [address] 01/22/2025 1:15 PM EDT Imaging Radiology [facility] [address] [place] [address] Health Maintenance Due Date Last Done Comments [...] this encounter Medical Devices Implanted Type Area Paper Final Inspector Device Identifier Shelf Expiration Date Model / Serial / Lot Cath Drainage 10fr [facility]-10-038 - [id number] Implanted:Qty : 1 on 05/07/2023 at [facility] Right: Abdomen [employer] [id number] 02/15/2026 [facility]-10-03 8 / / [id number] documented as of this encounter Advance Directives [...] Power of Attor cristin? No Care Teams Figurine Maker Relationship Specialty Start Date End Date Denis Urbina MD [address] [place] [address] PCP - General Family Medicine 04/17/22 documented as of this encounter
--- OUTSIDE RECORDS SUMMARY | 2025-01-09 05:32 | External Medical Summary ---
Author Name Unknown Address Unknown Organization [id number]:[facility] [place] - [facility] [address] Laboratory Report Ordering Provider Test Date Status NAYANA SANTOS 10/20/2024 06:07:00 Final Observation Date Value Abnormality Reference (Units ) Status BUN 10/20/2024 06:07:00 36 Above high normal 6-20 (mg/dL) Final Creatinine 10/20/2024 06:07:00 1.2 Above high normal 0.5-1.0 (mg/dL) Final Glomerular filtration rate/1.73 sq M.predicted [Volume Rate/Area] in Serum, Plasma or Blood by Creatinine-based formula (CKD-EPI) 10/20/2024 06:07:00 50 Below low normal >=60 (mL/min) Final eGFR is calculated based on the CKD-EPI 2020 equation. Sodium 10/20/2024 06:07:00 135 135-146 (m mol/L) Final Potassium 10/20/2024 06:07:00 4.3 3.5-5.1 (m mol/L) Final Cl 10/20/2024 06:07:00 90 Below low normal 98- 107 (mmol/L) Final CO2 10/20/2024 06:07:00 34 Above high normal 22 -32 (mmol/L) Final Anion gap 10/20/2024 06:07:00 11 7-15 (mmol /L) Final Glucose 10/20/2024 06:07:00 371 Above high normal 70 -120 (mg/dL) Final Calcium 10/20/2024 06:07:00 8.5 8.4-10.2 ( mg/dL) Final Performing Location [facility] [place] [facility] [address] [facility] [address]
--- OUTSIDE RECORDS SUMMARY | 2025-01-09 05:32 | External Medical Summary ---
Author Name Unknown Address Unknown Organization K01[facility] [place] [facility] [place] [address] Laboratory Report Ordering Provider Test Date Status NAYANA SANTOS 10/20/2024 06:07:00 Final Observation Date Value Abnormality Reference (Units ) Status WBC, Total 10/20/2024 06:07:00 8.55 4.00-10.80 (K/uL) Final RBC 10/20/2024 06:07:00 4.35 3.85-5.15 (M/uL) Final Hemoglobin 10/20/2024 06:07:00 11.8 Below low normal 12.0-15.3 (g/dL) Final HCT 10/20/2024 06:07:00 39.2 36.0-45.2 (%) Final MCV 10/20/2024 06:07:00 90.1 81.5-97.5 (fL) Final MCH 10/20/2024 06:07:00 27.1 27.0-34.0 (pg) Final MCHC 10/20/2024 06:07:00 30.1 32.0-36.0 (g/dL) Final RDW 10/20/2024 06:07:00 15.9 11.5-15.5 (%) Final Platelets 10/20/2024 06:07:00 230 140-400 (K/uL) Final MPV 10/20/2024 06:07:00 10.0 6.6-11.1 (fL) Final Nucleated erythrocytes/100 leukocytes [Ratio] in Blood by Automated count 10/20/2024 06:07:00 0 <=0 (/100 WBCs) Final Performing Location [facility] [place] [address] [facility] [address]
--- OUTSIDE RECORDS SUMMARY | 2025-01-09 05:32 | External Medical Summary | Summary of Care ---
Author Name Unknown Organization [facility] Address [address] [place] [address] Phone [phone] Care Team Providers Care Marine Mechanic Name Role Phone Denis Urbina MD Primary Care Provider + [phone] Encounter Details Date Type Department Care Team (Late st Contact Info) Description 10/13/2024 Orders Only Lab Mobile Phlebotomy [facility] [address] [place] [address] Franki Vidal, DO [address] [place] [address] Heart failure, diastolic, with acute decompensation (HCC)* Allergies No known active allergiesdocumented as of this encounter (statuses as of 10/13/2024) Medications Albuterol Sulfate (2.5 MG/3ML) 0.083% Inhalation [...] 06/27/20 22 Active FreeStyle Maria Luz 2 [place] Device Use as directed . 1 Each 06/27/20 22 Active BD Insulin Syringe U/F 30G X 1/2" 0.3 ML (Insulin Syringe-Needle U-100)Indications: Type 2 diabetes mellitus without complication (HCC),Type 2 diabetes mellitus without complication, with long-term current use of insulin (HCC) INJECT UNDER THE SKIN 4 TIMES A DAY 100 Each 2 06/06/20 23 Active Droplet Pen [place] 31G X 5 MM (Insulin Pen Needle)Indications :Type 2 diabetes mellitus without complication, with long-term current use of insulin (HCC) inject subcutaneously four times a day 1000 Each 06/07/20 23 Active OneTouch UltraSoft LancetsIndications :Type 2 diabetes mellitus without complication, unspecified whether press tender long goods insulin use (HCC) Use as directed 4 [...] IZ PRN 04/17/2024 04/17/2025 Active lidocaine-epinephrine 2 %-1:920061 inj 6 mgIndications:Moderate nonproliferative diabetic retinopathy of both eyes with macular edema associated with type 2 diabetes mellitus (HCC),Optic nerve drusen, left,6th nerve palsy, right,Combined forms of age-related cataract of both eyes 6 mg IJ PRN 04/17/2024 04/17/2025 Active documented as of this encounter (statuses as of 10/13/2024) Active Problems Problem Noted Date Diagnosed Date [...] as of this encounter (statuses as of 10/13/2024) Resolved Problems Problem Noted Date Diagnosed Date [...] with ulcer 05/05/2022 06/29/2023 Diabetic retinopathy of vinceh t eye associated with type 2 diabetes [...] as of this encounter (statuses as of 10/13/2024) Immunizations Name Administration Dates Next Due Covid-19 Ad26, Single Dose (Alona/J&J) 021 Hepatitis B, 20+ yrs 12/08/2014,03/31/2011,02/23 Pneumococcal Conjugate Vacci ne, 20-valent ([id number]) 06/06/2023 Pneumococcal Polysaccharide PPV23 (Pneumovax) 02/10/2011 Seasonal [...] Care Team (Late st Contact Info) Description 10/13/2024 3:30 PM EST Office Visit Pulmonary Medicine [facility] [address] [place] [address] Johanny Hutton CRNP [address] [place] [address] 10/14/2024 2:00 PM EST Office Visit Wound Care Angie Teran [address] [place] [address] Paul Peng, [address] [place] [address] 10/28/2024 1:30 PM EST Office Visit Ophthalmology [facility] [address] [place] [address] Washington Gordon MD [address] [place] [address] 12/15/2024 4:20 PM EDT Office Visit Nephrology [facility] MIRANDA [address] [place] [address] Elie Dixon MD [address] [place] [address] 12/23/2024 10:30 AM EDT Office Visit Ophthalmology [facility] [address] [place] [address] Archana Nava MD [address] [place] [address] 12/24/2024 10:30 AM EDT Office Visit Cardiology [facility] [place] [address] [facility] [place] [address] Angela Briggs, AZEEM [address] [facility] [place] [address] 01/22/2025 1:15 PM EDT Imaging Radiology [facility] [address] [place] [address] Scheduled Orders Name Type Priority Associated Diagnoses Orde r Schedule BASIC METABOLIC PANEL Lab Routine Heart failure, diastolic, with acute decompensation (HCC) Expected: 10/13/2024, Expires: 10/13/2025 CBC Lab Routine Heart failure, diastolic, with acute decompensation (HCC) Expected: 10/13/2024, Expires: 10/13/2025 Health Maintenance Due Date Last Done Comments [...] 08/0 04/2024, 04/24/2024, Additional history exists GFR 04/09/2025 10/10/2024, 09/24, 10/08/2024, Additional history exists Diabetic Eye Exam 06/04/2025 [...] this encounter Medical Devices Implanted Type Area Carbon Brush Maker Device Identifier Shelf Expiration Date Model / Serial / Lot Cath Drainage 10fr [facility]-10-038 - [id number] Implanted:Qty : 1 on 05/07/2023 at [facility] Right: Abdomen [employer] [id number] 02/15/2026 [facility]-10-03 8 / / [id number] documented as of this encounter Visit Diagnoses [...] Power of Attor cristin? No Care Teams Marine Mechanic Relationship Specialty Start Date End Date Denis Urbina MD [address] [place] [address] PCP - General Family Medicine 04/17/22 documented as of this encounter
--- OUTSIDE RECORDS SUMMARY | 2025-01-09 05:32 | External Medical Summary | Summary of Care ---
Author Name Unknown Organization [facility] Address [address] [place] [address] Phone [phone] Care Team Providers Care Scrum Project Manager Name Role Phone Denis Urbina MD Primary Care Provider + [phone] Reason for Visit * Reason Comments Skin Check NEW PATIENT Rash Spreading arpound lennox dy Encounter Details Date Type Department Care Team (Late st Contact Info) Description 10/20/2024 8:45 AM EST Office Visit [facility] [address] [place] [address] Mame Pugh MD [address] [facility] [place] [address] Head lice* Allergies No known active allergiesdocumented as of this encounter (statuses as of 10/20/2024) Medications Albuterol Sulfate (2.5 MG/3ML) 0.083% Inhalation [...] 06/27/20 22 Active FreeStyle Maria Luz 2 [place] Device Use as directed . 1 Each 06/27/20 22 Active BD Insulin Syringe U/F 30G X 1/2" 0.3 ML (Insulin Syringe-Needle U-100)Indications: Type 2 diabetes mellitus without complication (HCC),Type 2 diabetes mellitus without complication, with long-term current use of insulin (HCC) INJECT UNDER THE SKIN 4 TIMES A DAY 100 Each 2 06/06/20 23 Active Droplet Pen [place] 31G X 5 MM (Insulin Pen Needle)Indications [...] morning and evening meals. 180 Tablet 06/04/20 24 Active Ondansetron 4 MG Oral [...] Ongoing therapy 45 Tablet 10/10/19 25 Active Malathion 0.5 % External Lotion Apply topically to affected area once for 1 dose. Sprinkle lotion on dry hair and rub gently until the scalp is thoroughly moistened. Allow to dry naturally and leave uncovered. 59 mL 3 10/20/19 25 025 Active Malathion 0.5 % External Lotion Apply topically to affected area once for 1 dose. Sprinkle lotion on dry hair and rub gently until the scalp is thoroughly moistened. Allow to dry naturally and leave uncovered. 118 mL 3 10/20/19 25 025 Active Hospital, Clinic, or Other Facility Administered [...] IZ PRN 04/17/2024 04/17/2025 Active lidocaine-epinephrine 2 %-1:359549 inj 6 mgIndications:Moderate nonproliferative diabetic retinopathy of both eyes with macular edema associated with type 2 diabetes mellitus (HCC),Optic nerve drusen, left,6th nerve palsy, right,Combined forms of age-related cataract of both eyes 6 mg IJ PRN 04/17/2024 04/17/2025 Active documented as of this encounter (statuses as of 10/20/2024) Active Problems Problem Noted Date Diagnosed Date [...] as of this encounter (statuses as of 10/20/2024) Resolved Problems Problem Noted Date Diagnosed Date [...] as of this encounter (statuses as of 10/20/2024) Immunizations Name Administration Dates Next Due Covid-19 Ad26, Single Dose (Alona/J&J) 021 Hepatitis B, 20+ yrs 12/08/2014,03/31/2011,02/23 Pneumococcal Conjugate Vacci ne, 20-valent ([id number]) 06/06/2023 Pneumococcal Polysaccharide PPV23 (Pneumovax) 02/10/2011 Seasonal [...] No 01/22/2024 Does the household have a [facility] source of income? (Household - for ages [...] documented in this encounter Progress Notes * Mame Pugh MD - 10/20/2024 9:06 AM EST SUBJECTIVE: HPI: Meera Mcgraw is a 69 year old female seen at the request of Denis Urbina MD as a new patient for evaluation and treatment of rash Derm AAD: Assessment: Photo consult only Images reviewed Patient with multiple pink papules and linear excoriations on trunk and extremities The differential includes pruritus with secondary excoriation due to CKD, diabetes, medications vs scabies vs irritant contact dermatitis/allergic contact dermatitis vs prurigo nodularis Treated with permethrin cream 09/30 Here for rash that is very itchy. She thinks they did permethrin cream at least once while inpatient. Back of neck, shoulders. Notes her 10 YO niece is also itchy on scalp. Has been sent home from school for this. REVIEW OF SYSTEMS: SKIN: No other new or changing moles. Past Medical History: Diagnosis Date Acute appendicitis 01/29/2017 Acute respiratory failure with hypoxia and hypercapnia ([facility]) 06/19/2022 Chronic venous hypertension with ulcer ([facility]) 05/05/2022 Controlled substance agreement signed 01/28/2017 COPD exacerbation ([facility]) 12/26/2015 COPD, severity to be determined ([facility]) 12/26/2015 Diabetic retinopathy of right eye associated with type 2 diabetes mellitus ([facility]) 06/08/2021 Dyslipidemia 12/26/2015 Dyslipidemia, goal to be determined Gastroesophageal reflux disease without esophagitis 05/04/2023 Heart failure, diastolic, with acute decompensation ([facility]) 06/19/2022 Heart failure, diastolic, with acute decompensation ([facility]) 2023-10-28 Adding I50.33-Heart failure, diastolic, with acute decompensation ([facility]) Dx to History HTN, goal below 140/90 11/07/2014 HTN, goal to be determined Hypoxia 12/26/2015 Influenza A 12/29/2015 Kidney disease, chronic, stage III (GFR 30-59 ml/min) ([facility]) 06/28/2022 Major depressive disorder 07/15/2007 ICD-10 update of inactive term Obesity hypoventilation syndrome ([facility]) 06/28/2022 Obesity, BMI not known Personal history of colonic polyps PPD positive Restless leg syndrome Right abducens nerve palsy 06/19/2022 Sleep apnea SOB (shortness of breath) 12/26/2015 T2DM (type 2 diabetes mellitus) ([facility]) dx age 55 Type 2 diabetes mellitus with diabetic polyneuropathy, with long-term current use of insulin ([facility]) 12/10/2019 SOCIAL HISTORY: Social History Tobacco Use Smoking status: Former Current packs/day: 0.00 Average packs/day: 0.1 packs/day for 3.0 years (0.4 ttl pk-yrs) Types: Cigarettes Start date: 03/08/2019 Quit date: 03/08/2022 Years since quittin.6 Smokeless tobacco: Never Tobacco comments: smoked in college also Substance Use Topics Alcohol use: Yes Comment: rarely Vaping/E-Cigarette Use Vaping/E-Cigarette Use Never User Passive Exposure No Counseling Given? No Vaping/E-Cigarette Substances Nicotine No Cannabidiol (CBD) No Vaping/E-Cigarette Devices Disposable No MEDICA TIONS: Current Outpatient Medications Medication Sig Dispense Refill [...] 1 Each 0 FreeStyle Maria Luz 2 [place] Device Use as directed . 1 Each 0 BD Insulin Syringe U/F 30G X 1/2" 0.3 ML (Insulin Syringe-Needle U-100) INJECT UNDER THE SKIN 4 TIMES A DAY 100 Each 2 Droplet Pen [place] 31G X 5 MM (Insulin Pen Needle) [...] if needed for insomnia 30 Tablet 5 ReliOn Premier Test In [...] by mouth every morning 90 Capsule 1 Bromfenac Sodium (Once-Daily) 0.09 % Ophthalmic Solution Instill 1 Drop into eye daily at noon. (Patient taking differently: Instill 1 Drop into eye daily at noon. Right eye) 2 mL 1 Cyanocobalamin 1000 MCG Sublingual Tablet Sublingual [...] by mouth every evening. 90 Tablet 1 Vitamin D3 50 MCG (2000 UT) Oral Capsule Take 1 Capsule by mouth in the morning. Every morning.. 90Capsule 1 Carvedilol 3.125 MG Oral Tablet (Coreg) Take 1 Tablet by mouth 2 times a day with morning and evening meals. 180 Tablet 3 Ondansetron 4 MG Oral Tablet Disintegrating (Zofran) Place 1 Tablet on tongue every 8 hours as needed for Nausea. dissolve on tongue. 30 Tablet 1 Ketoconazole 2 % External Shampoo (Nizoral) Apply topically to affected area every 3 days for 28 days. Shampoo twice a week 120 mL 1 Triamcinolone Acetonide 0.1 % External Cream (Aristocort) Apply 80 g topically to affected area every 12 hours as needed for Itching. Apply to areas of skin with itching 30 g 0 Torsemide 20 MG Oral Tablet (Demadex) Take 3 Tablets by mouth in the morning. 90 Tablet 11 Nicotine 21 MG/24HR Transdermal Patch 24 Hour (Nicoderm CQ) Place 1 Patch over 24 hours topically on the skin in the morning. 28 Patch 0 Ammonium Lactate 12 % [...] Pain, Severe. Ongoing therapy 45 Tablet 0 Insulin Glargine Solostar 100 UNIT/ML Subcutaneous Solution Pen-injector ([facility]) Inject 15 units once daily at bedtime. Dx Code E 11.9 (Patient taking differently: Inject 21 units once daily at bedtime.) 15 mL 3 Current Facility-Administered Medications Medication Dose Route Frequency Provider Last Rate Last Admin Aflibercept (Eylea) intraviteal prefilled syringe 2 mg 2 mg Intravitreal PRN 2 mg at 07/15/24 09 Aflibercept (Eylea) intraviteal prefilled syringe 2 mg 2 mg Intravitreal PRN 2 mg at 07/15/24 0901 lidocaine-epinephrine 2 %-1:646798 inj 6 mg 0.3 mL Injection PRN 6 mg at 07/15/24 0903 ALLERG Y: Patient has no known allergies. OBJECTIVE: GEN: Healthy, alert, no distress and pleasant. SKIN: Detailed exam of hair, neck, and back completed and are normal except: A. Crusted papules on scalp with head lice and nits ASSESSMENT/PLAN: A. Head lice - discussed diagnosis - [facility] head lice recommendations printed out and provided to patient - Rx sent for malathion lotion to long-term care facility pharmacy and [facility]. Should retreat in 7-9 days if still live lice - should follow CDC recs for bed linens, toys, clothing etc - dermatitis on back and scalp likely secondary to lice as well - pruritus from lice can persist for some time after tx is complete F/u PRN Mame Pugh MD 10/20/2024 9:06 AM REF: DENIS URBINA [address] [place] [address] (office) [phone] (fax) PCP: DENIS URBINA [address] [place] [address] [phone] I spent a total of 20-29 minutes (exact time 20 mins) on the date of service in preparation, delivery, and documentation of the care provided to Meera Mcgraw excluding any time spent in the performance of separately billed services or time spent by another provider/QHP. documented in this encounter Nursing Notes * Brendan Gordon CMA - 10/20/2024 8:55 AM EST Patient identified by name and date. New patient here for a skin check for a rash. documented in this encounter Plan of Treatment Upcoming Encounters Date Type Department Care Team (Late st Contact Info) Description 10/27/2024 8:00 AM EST Office Visit Pulmonary Medicine [facility] [address] [facility] [place] [address] Braxton Elizalde MD [address] [place] [address] [place] [address] 10/28/2024 1:30 PM EST Office Visit Ophthalmology [facility] [address] [place] [address] Washington Gordon MD [address] [place] [address] 12/15/2024 4:20 PM EDT Office Visit Nephrology [facility] Kymberly Kent [address] [place] [address] Elie Dixon MD [address] [facility] [place] [address] 12/23/2024 10:30 AM EDT Office Visit Ophthalmology [facility] [address] [place] [address] Archana Nava MD [address] [place] [address] 12/24/2024 10:30 AM EDT Office Visit Cardiology [facility] [address] [place] [facility] [place] [address] Angela Briggs CRNP [address] [place] [address] 01/22/2025 1:15 PM EDT Imaging Radiology [facility] [address] [place] [address] Health Maintenance Due Date Last Done Comments [...] this encounter Medical Devices Implanted Type Area Clay Dry Press Operator Device Identifier Shelf Expiration Date Model / Serial / Lot Cath Drainage 10fr [facility]-10-038 - [id number] Implanted:Qty : 1 on 05/07/2023 at [facility] Right: Abdomen [employer] [id number] 02/15/2026 [facility]-10-03 8 / / [id number] documented as of this encounter Visit Diagnoses Diagnosis Head lice- Primary Pediculus capitis (head louse) documented in this encounter Advance Directives * [...] Power of Attor cristin? No Care Teams Scrum Project Manager Relationship Specialty Start Date End Date Denis Urbina MD [address] [place] [address] PCP - General Family Medicine 04/17/22 documented as of this encounter
--- OUTSIDE RECORDS SUMMARY | 2025-01-09 05:32 | External Medical Summary ---
Author Name Unknown Address Unknown Organization [id number]:[facility] [facility] [address] [facility] [address] [facility] [address] Laboratory Report Ordering Provider Test Date Status NAYANA SANTOS 10/13/2024 05:21:17 Final Observation Date Value Abnormality Reference (Units ) Status WBC, Total 10/13/2024 05:21:17 5.67 4.00-10.80 (K/uL) Final RBC 10/13/2024 05:21:17 4.36 3.85-5.15 (M/uL) Final Hemoglobin 10/13/2024 05:21:17 12.1 12.0-15.3 (g/dL) Final HCT 10/13/2024 05:21:17 40.1 36.0-45.2 (%) Final MCV 10/13/2024 05:21:17 92.0 81.5-97.5 (fL) Final MCH 10/13/2024 05:21:17 27.8 27.0-34.0 (pg) Final MCHC 10/13/2024 05:21:17 30.2 32.0-36.0 (g/dL) Final RDW 10/13/2024 05:21:17 15.8 11.5-15.5 (%) Final Platelets 10/13/2024 05:21:17 165 140-400 (K/uL) Final MPV 10/13/2024 05:21:17 10.3 6.6-11.1 (fL) Final Nucleated erythrocytes/100 leukocytes [Ratio] in Blood by Automated count 10/13/2024 05:21:17 0 <=0 (/100 WBCs) Final Performing Location [facility] [facility] [address] [facility] [address]. [facility] [address]
--- OUTSIDE RECORDS SUMMARY | 2025-01-09 05:32 | External Medical Summary ---
Author Name Unknown Address Unknown Organization K01:[facility] [place] [facility] [address] [facility] [address] Laboratory Report Ordering Provider Test Date Status NAYANA SANTOS 10/13/2024 05:21:17 Final Observation Date Value Abnormality Reference (Units ) Status BUN 10/13/2024 05:21:17 47 Above high normal 6-20 (mg/dL) Final Creatinine 10/13/2024 05:21:17 1.5 Above high normal 0.5-1.0 (mg/dL) Final Glomerular filtration rate/1.73 sq M.predicted [Volume Rate/Area] in Serum, Plasma or Blood by Creatinine-based formula (CKD-EPI) 10/13/2024 05:21:17 37 Below low normal >=60 (mL/min) Final eGFR is calculated based on the CKD-EPI 2020 equation. Sodium 10/13/2024 05:21:17 137 135-146 (m mol/L) Final Potassium 10/13/2024 05:21:17 5.0 3.5-5.1 (m mol/L) Final Cl 10/13/2024 05:21:17 93 Below low normal 98- 107 (mmol/L) Final CO2 10/13/2024 05:21:17 36 Above high normal 22 -32 (mmol/L) Final Anion gap 10/13/2024 05:21:17 8 7-15 (mmol /L) Final Glucose 10/13/2024 05:21:17 220 Above high normal 70 -120 (mg/dL) Final Calcium 10/13/2024 05:21:17 8.5 8.4-10.2 ( mg/dL) Final Performing Location [facility] [place] [facility] [address] [address]
--- OUTSIDE RECORDS SUMMARY | 2025-01-09 05:32 | External Medical Summary | Summary of Care ---
Author Name Unknown Organization [facility] Address [address] [place] [address] Phone [phone] Care Team Providers Care Hybrid Tester Name Role Phone Denis Urbina MD Primary Care Provider + [phone] Reason for Visit * Reason Onset Date Comments No Show 10/17/[address] [facility] No Show Auto mation Encounter Details Date Type Department Care Team (Late st Contact Info) Description 10/17/2024 Telephone Wound Care Angie Teran [address] [place] [address] Irena Peng, [address] [place] [address] No Show ([place] No Show Automation) Allergies [...] 06/27/20 22 Active FreeStyle Maria Luz 2 [place] Device Use as directed . 1 Each 06/27/20 22 Active BD Insulin Syringe U/F 30G X 1/2" 0.3 ML (Insulin Syringe-Needle U-100)Indications: Type 2 diabetes mellitus without complication (HCC),Type 2 diabetes mellitus without complication, with long-term current use of insulin (HCC) INJECT UNDER THE SKIN 4 TIMES A DAY 100 Each 2 06/06/20 23 Active Droplet Pen [place] 31G X 5 MM (Insulin Pen Needle)Indications [...] days. Shampoo twice a week 120 mL 09/30/19 25 025 Active Triamcinolone Acetonide 0.1 [...] IZ PRN 04/17/2024 04/17/2025 Active lidocaine-epinephrine 2 %-1:282751 inj 6 mgIndications:Moderate nonproliferative diabetic retinopathy of [...] yrs 12/08/2014,03/31/2011,02/23 Pneumococcal Conjugate Vacci ne, 20-valent ([id number]) 06/06/2023 Pneumococcal Polysaccharide PPV23 (Pneumovax) 02/10/2011 Seasonal [...] No 01/22/2024 Does the household have a [facility] source [facility] income? (Household - for [...] 7:48 PM EST Lokesh Hurtado RN documented as of this encounter Mental Status * Because of a physical, mental, or emotional condition, do you have serious difficulty concentrating, remembering, or making decisions? (5 years old or older) Answer Entry Date Author No 10/03/2024 7:48 PM EST Lokesh Hurtado RN documented in this encounter Miscellaneous Notes * Telephone Encounter - Lulu, Oly Show - 10/17/2024 10:55 AM EST Dear Meera Mcgraw, Looks like you missed an appointment with IRENA PENG on 10/14/2024 at 02:00 PM. If you haven't already rescheduled, you have a couple of options: Reschedule in [employer]/scheduling Call us at [phone] Can't make a future appointment? Cancel and let someone else have your spot! It's easy to do via [employer] or by calling us. Thanks for trusting [facility] with your care. We hope to see you back in our office soon. Sincerely, IRENA PENG documented in this encounter Plan of Treatment Upcoming Encounters Date Type Department Care Team (Late st Contact Info) Description 10/17/2024 11:20 AM EST Office Visit Wound Care Angie Teran [address] [place] [address] Irena Peng DO [address] [place] [address] 10/20/2024 8:45 AM EST Office Visit Dermatology, Kym[facility]ly Zhang [address] [place] [address] Mame Pugh MD [address] [place] [phone] 10/27/2024 8:00 AM EST Office Visit Pulmonary Medicine [facility]ly [address] [facility] [place] [address] Braxton Elizalde MD [address] [place] [address] 10/28/2024 1:30 PM EST Office Visit Ophthalmology [facility] [address] [place] [address] Washington Gordon MD [address] [place] [address] 12/15/2024 4:20 PM EDT Office Visit Nephrology [facility]Kym[facility]ly [address] [facility] [place] [address] Elie Dixon MD [address] [place] [address] 12/23/2024 10:30 AM EDT Office Visit Ophthalmology [facility] [address] [place] [address] [place] [address] [place] [address] 12/24/2024 10:30 AM EDT Office Visit Cardiology [facility] [address] [facility] [place] [address] Angela Briggs CRNP [address] [place] [facility] [place] [address] 01/22/2025 1:15 PM EDT Imaging Radiology [facility] [address] [place] [address] Health Maintenance Due Date Last Done Comments [...] this encounter Medical Devices Implanted Type Area Newspaper Vendor Device Identifier Shelf Expiration Date Model / Serial / Lot Cath Drainage 10fr [facility]-10-038 - [id number] Implanted:Qty : 1 on 05/07/2023 at [facility] Right: Abdomen [facility] [id number] 02/15/2026 [facility]-10-03 8 / [id number] documented as of this encounter Advance Directives [...] Power of Attor cristin? No Care Teams Hybrid Tester Relationship Specialty Start Date End Date Denis Urbina MD [address] [place] [address] PCP - General Family Medicine 04/17/22 documented as of this encounter
--- OUTSIDE RECORDS SUMMARY | 2025-01-09 05:33 | External Medical Summary ---
Author Name Unknown Address Unknown Organization : Laboratory Report Ordering Provider Test Date Status ALEJANDRO FLAHERTY 10/09/2024 16:58:19 Final Observation Date Value Abnormality Reference (Units ) Status Glucose Point of Care 10/09/2024 16:58:19 191 Above high normal 70-120 (mg/dL) Final Performing Location
--- OUTSIDE RECORDS SUMMARY | 2025-01-09 05:33 | External Medical Summary ---
Author Name Unknown Address Unknown Organization [facility]:LAB[facility]AT[facility] - [address] [place] [address] Dr. Wilner [place]ER [address] Laboratory Report Ordering Provider Test Date Status JUVE SIMMONSLive 10/10/2024 06:13:00 Final Observation Date Value Abnormality Reference (Units ) Status Magnesium 10/10/2024 06:13:00 2.0 1.5-2.6 (m g/dL) Final Performing Location LABORATORY [facility] - [address] [place] [address] Dr. Wilner TYLER [address]
--- OUTSIDE RECORDS SUMMARY | 2025-01-09 05:33 | External Medical Summary ---
Author Name Unknown Address Unknown Organization [facility]:LABORATORY [address] Wilner [place]ER [address] Laboratory Report Ordering Provider Test Date Status ANITA SIMMONS 10/10/2024 06:13:00 Final Observation Date Value Abnormality Reference (Units ) Status BUN 10/10/2024 06:13:00 41 Above high normal 6-20 (mg/dL) Final Creatinine 10/10/2024 06:13:00 1.4 Above high normal 0.5-1.0 (mg/dL) Final Glomerular filtration rate/1.73 sq M.predicted [Volume Rate/Area] in Serum, Plasma or Blood by Creatinine-based formula (CKD-EPI) 10/10/2024 06:13:00 43 Below low normal >=60 (mL/min) Final eGFR is calculated based on the CKD-EPI 2020 equation. Sodium 10/10/2024 06:13:00 136 135-146 (m mol/L) Final Potassium 10/10/2024 06:13:00 4.6 3.5-5.1 (m mol/L) Final Cl 10/10/2024 06:13:00 93 Below low normal 98- 107 (mmol/L) Final CO2 10/10/2024 06:13:00 34 Above high normal 22 -32 (mmol/L) Final Anion gap 10/10/2024 06:13:00 9 7-15 (mmol /L) Final Glucose 10/10/2024 06:13:00 204 Above high normal 70 -120 (mg/dL) Final Calcium 10/10/2024 06:13:00 8.7 8.4-10.2 ( mg/dL) Final Performing Location LABORATORY [address] Wilner TYLER [address]
--- OUTSIDE RECORDS SUMMARY | 2025-01-09 05:33 | External Medical Summary ---
Author Name Unknown Address Unknown Organization : Laboratory Report Ordering Provider Test Date Status ALEJANDRO FLAHERTY 10/10/2024 12:12:37 Final Observation Date Value Abnormality Reference (Units ) Status Glucose Point of Care 10/10/2024 12:12:37 184 Above high normal 70-120 (mg/dL) Final Performing Location
--- OUTSIDE RECORDS SUMMARY | 2025-01-09 05:33 | External Medical Summary ---
Author Name Unknown Address Unknown Organization [facility]:LABORATORY [address] Wilner [place] [address] Laboratory Report Ordering Provider Test Date Status ANITA SIMMONS 10/10/2024 06:13:00 Final Observation Date Value Abnormality Reference (Units ) Status WBC, Total 10/10/2024 06:13:00 9.32 4.00-10.80 (K/uL) Final RBC 10/10/2024 06:13:00 4.46 3.85-5.15 (M/uL) Final Hemoglobin 10/10/2024 06:13:00 11.8 Below low normal 12.0-15.3 (g/dL) Final HCT 10/10/2024 06:13:00 39.8 36.0-45.2 (%) Final MCV 10/10/2024 06:13:00 89.2 81.5-97.5 (fL) Final MCH 10/10/2024 06:13:00 26.5 27.0-34.0 (pg) Final MCHC 10/10/2024 06:13:00 29.6 32.0-36.0 (g/dL) Final RDW 10/10/2024 06:13:00 15.0 11.5-15.5 (%) Final Platelets 10/10/2024 06:13:00 151 140-400 (K/uL) Final MPV 10/10/2024 06:13:00 9.2 6.6-11.1 (fL) Final Nucleated erythrocytes/100 leukocytes [Ratio] in Blood by Automated count 10/10/2024 06:13:00 0 <=0 (/100 WBCs) Final Performing Location LABORATORY [address] Wilner TYLER [address]
--- OUTSIDE RECORDS SUMMARY | 2025-01-09 05:33 | External Medical Summary | Summary of Care ---
Author Name Unknown Organization [facility] Address [address] [place] [address] Phone [phone] Care Team Providers Care Hoist Cylinder Loader Name Role Phone Denis Urbina MD Primary Care Provider + [phone] Reason for Visit * Reason Onset Date Comments Medication Refill 10/10/2024 Encounter Details Date Type Department Care Team (Late st Contact Info) Description 10/10/2024 Telephone [facility] [address] [place] [address] Rupal Matute PA-C [address] [facility] [place] [address] Medication Refill Allergies No known active allergiesdocumented as of this encounter (statuses as of 10/10/2024) Medications Albuterol Sulfate (2.5 MG/3ML) 0.083% Inhalation [...] 06/27/20 22 Active FreeStyle Maria Luz 2 [place] Device Use as directed . 1 Each 06/27/20 22 Active BD Insulin Syringe U/F 30G X 1/2" 0.3 ML (Insulin Syringe-Needle U-100)Indications :Type 2 diabetes mellitus without complication (HCC),Type 2 diabetes mellitus without complication, with long-term current use of insulin (HCC) INJECT UNDER THE SKIN 4 TIMES A DAY 100 Each 2 06/06/20 23 Active Droplet Pen Ruby 31G X 5 MM (Insulin Pen Needle)Indication s:Type 2 diabetes mellitus without complication, with long-term current use of insulin (HCC) inject subcutaneously four times a day 1000 Each 06/07/20 23 Active OneTouch UltraSoft LancetsIndication s:Type 2 diabetes mellitus without complication, unspecified whether fci insulin use (HCC) Use as directed 4 [...] on 10/03/2024 Cyanocobalamin 1000 MCG Sublingual Tablet SublingualIndicat ions:B12 [...] Ongoing therapy 45 Tablet 10/10/19 25 Active traMADol HCl 50 MG Oral Tablet (Ultram)Indicatio ns:Skin ulcer of multiple sites of lower extremity, unspecified laterality, limited to breakdown of skin (HCC) Take 1 Tablet by mouth every 8 hours as needed for Pain, Moderate for up to 15 days. 45 Tablet 10/10/19 25 025 Disconti nu(Ref ill) Hospital, Clinic, or Other Facility Administered [...] IZ PRN 04/17/2024 04/17/2025 Active lidocaine-epinephrine 2 %-1:[id number] inj 6 mgIndications:Moderate nonproliferative diabetic retinopathy of both eyes with macular edema associated with type 2 diabetes mellitus (HCC),Optic nerve drusen, left,6th nerve palsy, right,Combined forms of age-related cataract of both eyes 6 mg IJ PRN 04/17/2024 04/17/2025 Active documented as of this encounter (statuses as of 10/10/2024) Active Problems Problem Noted Date Diagnosed Date [...] insulin 12/10/2019 DDD (degenerative disc disease), lumbar 08/22/20 16 SOB (shortness of breath) 12/26/2015 HTN, [...] as of this encounter (statuses as of 10/10/2024) Resolved Problems Problem Noted Date Diagnosed Date [...] as of this encounter (statuses as of 10/10/2024) Immunizations Name Administration Dates Next Due Covid-19 Ad26, Single Dose ([place]/J&J) 021 Hepatitis B, 20+ yrs 12/08/2014,03/31/2011,02/23 Pneumococcal Conjugate Vacci ne, 20-valent (Rkrobra74) 06/06/2023 Pneumococcal Polysaccharide PPV23 (Pneumovax) 02/10/2011 Seasonal [...] No 01/22/2024 Does the household have a [facility] source of income? (Household - for [...] 3:30 PM EST Office Visit Pulmonary Medicine [facility] Kymberly MIRANDA [address] [place] [phone] Johanny Hutton CRNP [address] [facility] [address] 10/14/2024 2:00 PM EST Office Visit Wound Care Angie Teran [address] [place] [address] Paul Peng, [address] [place] [address] 10/28/2024 1:30 PM EST Office Visit Ophthalmology [facility] [address] [place] [address] Washington Gordon MD [address] [place] [address] [place] [address] 12/15/2024 4:20 PM EDT Office Visit Nephrology [facility] Kymberly MIRANDA [address] [place] [address] Elie Dixon MD [address] [place] [address] 12/23/2024 10:30 AM EDT Office Visit Ophthalmology [facility] [address] [place] [address] Archana Nava MD [address] [place] [address] 12/24/2024 10:30 AM EDT Office Visit Cardiology [facility] [address] [place] [address] Angela Briggs CRNP [address] [place] [facility] [place] [address] 01/22/2025 1:15 PM EDT Imaging Radiology [facility] [address] [place] [address] Health Maintenance Due Date Last Done Comments [...] COPD 10/10/2025 10/10/2024 Lipid Panel 04/24/2029 04/24/2024, 0809/2023, 12/26/2023, Additional [...] this encounter Medical Devices Implanted Type Area Insulation Packer Device Identifier Shelf Expiration Date Model / Serial / Lot Cath Drainage 10fr [facility]-10-038 - [id number] Implanted:Qty : 1 on 05/07/2023 at [facility] Right: Abdomen [employer] [id number] 02/15/2026 [facility]-10-03 8 / / [id number] documented as of this encounter Visit Diagnoses Diagnosis Skin ulcer of multiple sites of lower extremity, unspecified laterality, limited to breakdown of skin (HCC) documented in this encounter Advance Directives * Full Code (Latest Code Status on File) Date Activated Date Inactivated Comments 10/02/2024 11:07 PM This order ref lects the patients wishes and were consensually agreed [...] Power of Attor cristin? No Care Teams Hoist Cylinder Loader Relationship Specialty Start Date End Date Denis Urbina MD [address] [place] [address] PCP - General Family Medicine 04/17/22 documented as of this encounter
--- OUTSIDE RECORDS SUMMARY | 2025-01-09 05:33 | External Medical Summary ---
Author Name Unknown Address Unknown Organization : Laboratory Report Ordering Provider Test Date Status ALEJANDRO FLAHERTY 10/10/2024 16:48:08 Final Observation Date Value Abnormality Reference (Units ) Status Glucose Point of Care 10/10/2024 16:48:08 133 Above high normal 70-120 (mg/dL) Final Performing Location
--- OUTSIDE RECORDS SUMMARY | 2025-01-09 05:33 | External Medical Summary | Summary of Care ---
Author Name Unknown Organization [facility] Address [address] [place] [address] Phone [phone] Care Team Providers Care Technical Inspector Name Role Phone Denis Urbina MD Primary Care Provider + [phone] Reason for Visit * Reason Comments Infection Bilateral leg wounds * Auth/Cert Specialty Diagnoses / Procedures Referred By Contac t Referred To Contact Diagnoses SOB (shortness of breath) Alice Segundo MD [address] [facility] [place] [address] Phone: tel: fax: [facility] Emergency Department ([facility]) [address] [facility] [place] [address] Phone: tel: fax: Referral ID Status Reason Start Date Expiration Date Visits Re quested Visits Authorized [id number] Encounter Details Date Type Department Care Team (Latest Contact Info) Description 10/02/2024 6:03 PM EST - 10/10/2024 6:31 PM EST Hospital Encounter [facility], Medical Surgical, Main Hospital 6th Floor [address] [facility] [place] [phone] Silvino Chávez MD [address] [facility] [place] Alice Segundo MD [address] [facility] [place] Usha Harden MD [address] [facility] [place] [address] Dilan Hernandez MD [address] [facility] [place] [address] Gilmar Ford DO [address] [facility] [place] [id number] Raven Yañez MD [address] [facility] [place] [address] EKG Report Discharge Disposition: SNF Allergies No known active allergiesdocumented as of this encounter (statuses as of 10/11/2024) Medications Albuterol Sulfate (2.5 MG/3ML) 0.083% Inhalation [...] Each 022 Active FreeStyle Maria Luz 2 [place] Device Use as directed . 1 Each 022 Active BD Insulin Syringe U/F 30G X 1/2" 0.3 ML (Insulin Syringe-Needle U-100)Indication s:Type 2 diabetes mellitus without complication (HCC),Type 2 diabetes mellitus without complication, with long-term current use of insulin (HCC) INJECT UNDER THE SKIN 4 TIMES A DAY 100 Each 2 023 Active Droplet Pen [place] 31G X 5 MM (Insulin Pen Needle)Indicatio ns:Type 2 diabetes mellitus without complication, with long-term current use of insulin (HCC) inject subcutaneously four times a day 1000 Each Active OneTouch UltraSoft LancetsIndicatio ns:Type 2 diabetes [...] by mouth every morning 90 Capsule 1 Active Bromfenac Sodium (Once-Daily) 0.09 % Ophthalmic Solution Instill 1 Drop into eye daily at noon. 2 mL 1 Active Additional Information Patient taking differently:1 Drop Ophthalmic DAILY NOON,Right eye, Informant: Patient, Pharmacy, Reported on 10/03/2024 Cyanocobalamin 1000 MCG Sublingual Tablet SublingualIndica tions:B12 [address] 1,000MCG UNDER THE TONGUE DAILY 90 Tablet 1 Active Escitalopram Oxalate 10 MG Oral Tablet (Lexapro)Indicat [...] and 2 Capsules before bedtime. 90 Capsule 024 Active hydrOXYzine HCl 25 MG Oral TabletIndication s:Episode of recurrent major depressive disorder, unspecified depression episode severity (HCC) Take 1 Tablet by mouth 3 times a day as needed for Anxiety. 90 Tablet Active Simvastatin 20 MG Oral Tablet (Zocor) Take 1 Tablet by mouth every evening. 90 Tablet 024 Active Vitamin D3 50 MCG (2000 UT) Oral CapsuleIndicatio ns:Vitamin D deficiency Take 1 Capsule by mouth in the morning. Every morning.. 90 Capsule 024 Active Carvedilol 3.125 MG Oral Tablet (Coreg) Take 1 Tablet by mouth 2 times a day with morning and evening meals. 180 Tablet Active Ondansetron 4 MG Oral Tablet Disintegrating (Zofran)Indicati ons:Nausea Place 1 Tablet on tongue every 8 hours as needed for Nausea. dissolve on tongue. 30 Tablet 024 Active Ketoconazole 2 % External Shampoo [...] mouth in the morning. 90 Tablet Active Cyclobenzaprine HCl 5 MG Oral Tablet (Flexeril) Take 1 Tablet by mouth every 8 hours as needed for Muscle spasms for up to 7 days. 30 Tablet 025 2024 Active Nicotine 21 MG/24HR Transdermal Patch 24 Hour (Nicoderm CQ) Place 1 Patch over 24 hours topically on the skin in the morning. 28 Patch Active Ammonium Lactate 12 % External Cream (Lac-Hydrin) Apply topically to affected area as needed for Dry Skin. Apply to all over body after shower and before bedtime for dry skin 385 g 2 Active Pregabalin 25 MG Oral Capsule (Lyrica)Indicati ons:Type 2 diabetes mellitus with diabetic polyneuropathy, with long-term current use of insulin (HCC) Take 1 Capsule by mouth in the morning. 30 Capsule 024 2024 Discontinued(M edication List Clean Up) Torsemide 20 MG Oral Tablet (Demadex) Take 3 Tablets by mouth in the morning. 90 Tablet 11 024 2024 Discontinued amLODIPine Besylate 5 MG Oral Tablet (Norvasc) Take 1 Tablet by mouth in the morning. 90 Tablet 3 024 2024 Discontinued Vitamin B-12 1000 MCG Oral Tablet (Cyanocobalamin) PLACE 1,000MCG UNDER THE TONGUE DAILY 90 Tablet 3 024 2024 Discontinued(M edication List Clean Up) Multivitamin Adult Oral Tablet Take 1 tablet by mouth daily. 30 Tablet 3 024 2024 Discontinued(M edication List Clean Up) Silver sulfADIAZINE 1 % External Cream (Silvadene)Indic ations:Wound of right lower extremity, initial encounter Apply topically to affected area daily. Apply to wound on RLE once daily with dressing changes. 85 g 1 024 2024 Discontinued(M edication List Clean Up) Doxycycline Hyclate 100 MG Oral CapsuleIndicatio ns:Type [...] Pain, Moderate. 15 Tablet 024 2024 Discontinued methylPREDNISolo ne 4 MG Oral Tablet Therapy Pack (Medrol Dosepack) follow package directions 21 Tablet 025 2024 Discontinued Permethrin 5 % External Cream (Elimite) Apply topically to affected area once for 1 dose. Apply from top of neck to toes all over, wash off after 12 hours 60 g 025 2024 Discontinued Furosemide 20 MG Oral Tablet (Lasix) Take 1 Tablet by mouth in the morning. 30 Tablet 2024 Discontinued traMADol HCl 50 MG Oral Tablet (Ultram)Indicati ons:Skin ulcer of multiple sites of lower extremity, unspecified laterality, limited to breakdown of skin (HCC) Take 1 Tablet by mouth every 8 hours as needed for Pain, Moderate for up to 15 days. 45 Tablet 2024 Discontinued(Mabel lawrence) Hospital, Clinic, or Other Facility Administered Medication [...] IZ PRN 04/17/2024 04/17/2025 Active lidocaine-epinephrine 2 %-[id number] inj 6 mgIndications:Moderate nonproliferative diabetic retinopathy of both eyes with macular edema associated with type 2 diabetes mellitus (HCC),Optic nerve drusen, left,6th nerve palsy, right,Combined forms of age-related cataract of both eyes 6 mg IJ PRN 04/17/2024 04/17/2025 Active documented as of this encounter (statuses as of 10/11/2024) Active Problems Problem Noted Date Diagnosed Date [...] as of this encounter (statuses as of 10/11/2024) Resolved Problems Problem Noted Date Diagnosed Date [...] as of this encounter (statuses as of 10/11/2024) Immunizations Name Administration Dates Next Due Covid-19 Ad26, Single Dose ([place]/J&J) 021 Hepatitis B, 20+ yrs 12/08/2014,03/31/2011,02/23 Pneumococcal Conjugate Vacci ne, 20-valent (Kesuppb14) 06/06/2023 Pneumococcal Polysaccharide PPV23 (Pneumovax) 02/10/2011 Seasonal [...] Sign Reading Time Taken Comments Blood Pressure 136/66 10/10/2024 3:00 PM EST Pulse 66 10/10/2024 3:00 PM EST Temperature 37.8 °C (100.1 °F) 10/10/2024 3:[address] Respiratory Rate 16 10/10/2024 3:00 AM EST Oxygen Saturation 96% 10/10/2024 3:00 PM EST Inhaled Oxygen Concentration - - Weight 112.4 kg (247 lb 11.2 oz) 10/09/2024 7:00 AM EST Height 162.6 cm (5' 4") 10/04/2024 4:47 PM EST Body Mass Index 42.52 10/04/2024 4:47 PM EST documented in this encounter Functional Status [...] Lokesh Church RN documented in this encounter Discharge Summaries * Stacy Jaimes MD - 10/10/2024 3:09 PM EST Images from the original note were not included. [address] [place] [address] Admission Date: 10/02/2024 Discharge Date: 10/10/2024 RECOMMENDED TO DO FOR NEXT PROVIDER(S): Follow up with PCP in 1 week Follow up with Dermatology 1 week Follow up with Podiatry in 2 weeks [facility] Wound Care follow up REASON(S) FOR MEDICATION CHANGE(S): Triamcinolone cream for itching Flexeril for muscle spasm Nicotine patch Ammonium lactate cream for dry skin DISPOSITION ON DISCHARGE: SNF Active Hospital Problems Diagnosis *Principal Diagnosis - Heart failure, systolic and diastolic, acute on chronic ([facility]) Excoriation Hyperkalemia Cellulitis Acute on chronic respiratory failure with hypercapnia ([facility]) Venous stasis ulcers of both lower extremities (HCC) COPD, group C, by GOLD 2017 classification ([facility]) BMI 40.0-44.9, adult ([facility]) Obesity hypoventilation syndrome ([facility]) Type 2 diabetes mellitus with diabetic polyneuropathy, with long-term current use of insulin (HCC) SOB (shortness of breath) HTN, goal below 140/90 Dyslipidemia, goal LDL below 100 Major depressive disorder Restless leg syndrome SLEEP APNEA, UNSPECIFIED Resolved Hospital Problems No resolved problems to display. ADMISSION HISTORY & PHYSICAL EXAM (focused): HPI per Lonnie Alex " PRESENTING PROBLEM: Worsening wounds, increasing shortness of breath, rash HPI: This is a 69-year-old with a PMH significant for but not limited to COPD, CHF, DM, chronic B/Llower extremity venous stasis wounds who presented with worsening of wounds, increased shortness ofbreath, rash on right hand, abdomen and back. The patient has been getting Wound Care with the home health nurse thrice a week where the home health nurse noticed increasing drainage from the wounds and increased swelling in the past 3 weeks. Was associated with increasing pain. Patient also has increasing shortness of breath. Patient uses 2 L of O2 at home as needed and CPAP during nights. Recently she noted that the saturation went low to 85% and was increased to 92% with 2 L. patient also gained 3 lb in 1 week. Patient uses a walker to walk and has shortness of breath with daily activities which gets better with the rest. Denies PND, recent acute abdominal distention, chest pain, palpitation. Patient also has been having a rash on the right hand, abdomen, back which started 2 days ago. Patient has been babysitting 3 cats for the past 2 weeks. , son, grandchildren who live with her does not have similar symptoms. Associated with the change. Denies usage of new products, clothes. ED course Troponin elevated currently trending down from 77-->72 (baseline ranges at 40s 50s and 60s, recently 100) BNP normally elevated currently at 5502 from 3456 previously Creatinine elevated at baseline 1.4 No leukocytosis but ANC elevated 8.97 Most Recent Vital Signs: BP: 148 mmHg/71 mmHg (10/02/242099) Pulse: 65 (10/02/242099) Resp: 18 (10/02/242099) Temp: 36.89 C (10/02/242099) Temp Summary: Temp Min: 36.2 °C (97.2 °F) Max: 36.9 °C (98.4 °F) SpO2: 100 % (10/02/242299) O2 flow rate: 2 L/MIN (10/02/242299) Supplemental O2 Delivery: Nasal Cannula (10/02/242299) Constitutional: no acute distress HEENT: normal: normocephalic, atraumatic CV: normal rate and rhythm, systolic murmur (+) Chest: normal respiratory effort, coarse breath sounds at lung base most pronounced on the left side Abdomen: normal: soft, bowel sounds normal, distended Extremities: no clubbing, cyanosis, foul-smelling, edematous, red (covered in bandage in intense pain so could not examine) Skin: warm, dry, intact: Neuro: alert, oriented to person, place, and time Psych: normal mood and affect" HOSPITAL COURSE (focused): 69-year-old female with a [...] diuresed with IV Lasix and transitioned to [employer] torsemide. Patient received 2 doses of permethrin application on account of suspicion of scabies. Dermatology consulted and recommended for 5 for Gram jar of triamcinolone ointment0.1% to apply twice daily as needed for itching and for outpatient Dermatology consult on discharge. Patient was seen by Podiatry due to bilateral lower extremity leg wound that bilateral lower extremity dressings with ABDs, Kerlix and Christopher wraps daily. Patient was seen by Wound Care and recommendedfollow up with [facility] on discharge. Patient was hemodynamically stable at the time ofdischarge. BP: 136 mmHg/66 mmHg (10/10/24 1500) Pulse: 66 (10/10/24 1500) Resp: 16 (10/10/24 0300) Temp: 37.83 C (10/10/24 1500) Temp Summary: Temp Min: 36.6 °C (97.8 °F) Max: 37.8 °C (100.1 °F) SpO2: 96 % (10/10/24 1500) O2 flow rate: 2 L/MIN (10/09/24 1900) Supplemental O2 Delivery: Nasal Cannula (10/10/24 1100) Constitutional: Alert and interactive, in no apparent distress. HEENT: Normocephalic, atraumatic, EOM intact. Neck: Supple, normal range of motion. Cardiovascular: Regular rate and rhythm, no murmurs appreciated. Pulmonary: Clear to auscultation bilaterally, normal work of breathing, no wheezes or crackles . Abdomen: Soft, nontender, nondistended, bowel sounds present. Extremities: Bilateral lower extremity wrapped with Christopher wraps, range of motion at baseline. Neuro: No focal neurologic deficit. Psych: Normal affect and behavior. Recent Results (from the past 12 hours) BASIC METABOLIC PANEL Collection Time: 10/10/24 6:13 AM Result Value Ref Range BUN 41 (H) 6 - 20 mg/dL CREATININE 1.4 (H) 0.5 - 1.0 mg/dL EGFR 43 (L) >=60 mL/min SODIUM 136 135 - 146 mmol/L POTASSIUM 4.6 3.5 - 5.1 mmol/L CHLORIDE 93 (L) 98 - 107 mmol/L CO2 34 (H) 22 - 32 mmol/L ANION GAP 9 7 - 15 mmol/L GLUCOSE 204 (H) 70 - 120 mg/dL CALCIUM 8.7 8.4 - 10.2 mg/dL CBC Collection Time: 10/10/24 6:13 AM Result Value Ref Range WBC 9.32 4.00 - 10.80 K/uL RBC 4.46 3.85 - 5.15 M/uL HGB 11.8 (L) 12.0 - 15.3 g/dL HCT 39.8 36.0 - 45.2 % MCV 89.2 81.5 - 97.5 fL MCH 26.5 27.0 - 34.0 pg MCHC 29.6 32.0 - 36.0 g/dL RDW 15.0 11.5 - 15.5 % PLT 151 140 - 400 K/uL MPV 9.2 6.6 - 11.1 fL nRBCs 0 <=0 /100 WBCs MAGNESIUM Collection Time: 10/10/24 6:13 AM Result Value Ref Range Magnesium 2.0 1.5 - 2.6 mg/dL GLUCOSE METER, POINT OF CARE Collection Time: 10/10/24 7:39 AM Result Value Ref Range GLUCOSE - POCT 174 (H) 70 - 120 mg/dL GLUCOSE METER, POINT OF CARE Collection Time: 10/10/24 12:12 PM Result Value Ref Range GLUCOSE - POCT 184 (H) 70 - 120 mg/dL ] VASC DUPLEX VENOUS LE BILAT Final Result VASCULAR LAB RESULTS DATE OF EXAM: 10/05/24 PRESENTING CONDITIONS: Generalized Edema Immediately before proceeding with the vascular lab procedure reported below, the identity of the patient, the correct exam and the correct procedural site were verified. PHYSICIAN REPORT: Lower Extremity Venous Duplex Examination Color flow Doppler, spectral analysis, and transducer compression techniques were applied during this ultrasound image examination. RIGHT LOWER EXTREMITY On duplex examination, the right common femoral vein, the sapheno-femoral junction, the femoral vein in the thigh and popliteal vein are all free of internal echoes and demonstrate normal transducer compressibility during batista scale imaging and normal respiratory and augmentation response during Doppler interrogation. The posterior tibial veins and peroneal veins demonstrate no evidence of thrombosis. LEFT LOWER EXTREMITY On duplex examination, the left common femoral vein, the sapheno-femoral junction, the femoral vein in the thigh, and popliteal vein are all free of internal echoes and demonstrate normal transducer compressibility during batista scale imaging and normal respiratory and augmentation response during Doppler interrogation. The posterior tibial veins and peroneal veins demonstrate no evidence of thrombosis. IMPRESSION: Right lower extremity with no evidence of acute deep venous thrombosis. Left lower extremity with no evidence of acute deep venous thrombosis. CT CHEST WO CONTRAST Final Result EXAM EXAM: CT CHEST WO CONTRAST DATE [...] bilateral lower lobes. New triangular juxtapleural density is present in the right lower lobe on image [...] Mild incidental nodularity left adrenal gland. Cholelithiasis. IMPRESSION IMPRESSION 1. Dependent juxtapleural consolidation with associated [...] details as above. XR CHEST 1 VIEW Final Result EXAM XR CHEST 1 VIEW - 10/02/2024 8:53 pm HISTORY Shortness of breath TECHNIQUE Single-view chest COMPARISON None. FINDINGS Cardiomediastinal silhouette is normal. No consolidation, mass, pneumothorax, or pleural effusion. Vascular congestion. The underlying bony structures are normal for the patient's age. IMPRESSION IMPRESSION Vascular congestion Operations & Procedures: none Complications: none significant Significant Lab and Imaging Results: As mentioned above Results Pending at Discharge: Lab Results Pending at Discharge: BASIC METABOLIC PANEL Routine CBC Routine MAGNESIUM Routine MEDICATION UPDATES AT DISCHARGE START taking these medications INSTRUCTIONS Ammonium Lactate 12 % cream Commonly known as: Lac-Hydrin Apply topically to affected area as needed for Dry Skin. Apply to all over body after shower and before bedtime for dry skin cyclobenzaprine 5 MG Tablet Commonly known as: Flexeril Take 1 Tablet by mouth every 8 hours as needed for Muscle spasms for up to 7 days. Nicotine 21 MG/24HR Patch Commonly known as: Nicoderm CQ Start taking on: October 11, [address]24 Place 1 Patch over 24 hours topically on the skin in the morning. Triamcinolone Acetonide 0.1 % cream Commonly known as: Aristocort Apply 80 g topically to affected area every 12 hours as needed for Itching. Apply to areas of skin with itching CHANGE how you take these medications INSTRUCTIONS Insulin Glargine Solostar 100 UNIT/ML Sopn Commonly known as: Basaglar KwikPen What changed: additional instructions Inject 15 units once daily at bedtime. Dx Code E 11.9 Torsemide 20 MG Tablet Commonly known as: Demadex What changed: how much to take additional instructions Take 3 Tablets by mouth in the morning. CONTINUE taking these medications INSTRUCTIONS Acetaminophen 325 MG Tablet Commonly known as: Tylenol Take 1 Tablet by mouth every 6 hours as needed for Pain, Mild. Albuterol Sulfate (2.5 MG/3ML) 0.083% nebulizer solution Commonly known as: Proventil One vial in nebulizer every 4 hours as needed for wheezing BD Insulin Syringe U/F 30G X 1/2" 0.3 ML Misc Generic drug: Insulin Syringe-Needle U-100 INJECT UNDER THE SKIN 4 TIMES A DAY Bromfenac Sodium (Once-Daily) 0.09 % Soln Instill 1 Drop into eye daily at noon. Carvedilol 3.125 MG Tablet Commonly known as: Coreg Take 1 Tablet by mouth 2 times a day with morning and evening meals. CPAP every night at bedtime . Cyanocobalamin [address] 1,000MCG UNDER THE TONGUE DAILY Droplet Pen [place] 31G X 5 MM Generic drug: Insulin Pen Needle inject subcutaneously four times a day escitalopram 10 MG Tablet Commonly known as: Lexapro Take 1 Tablet by mouth in the morning. In the morning.. fluticasone 50 MCG/ACT nasal spray Commonly known as: Flonase Administer 2 Sprays into each nostril in the morning. FreeStyle Maria Luz 2 [place] Jessika Use as directed . FreeStyle Maria Luz 2 Sensor Misc Use as directed . Gabapentin 100 MG Capsule Commonly known as: Neurontin Take 2 Capsules by mouth in the morning and 2 Capsules at noon and 2 Capsules before bedtime. hydrOXYzine HCl 25 MG tablet Take 1 Tablet by mouth 3 times a day as needed for Anxiety. Ketoconazole 2 % shampoo Commonly known as: Nizoral Apply topically to affected area every 3 days for 28 days. Shampoo twice a week NovoLOG FlexPen 100 UNIT/ML Sopn Generic drug: insulin aspart Inject 12 units + scale three times a day with meals. Max of 20 units three times a day with meals. omeprazole 20 MG Cpdr Commonly known as: PriLOSEC take 1 capsule by mouth every morning ondansetron ODT 4 MG Tbdp Commonly known as: Zofran Place 1 Tablet on tongue every 8 hours as needed for Nausea. dissolve on tongue. OneTouch UltraSoft Lancets Misc Use as directed 4 times a day as needed for Other (to check BS). Use up to four times a day as directed RA Melatonin 1 MG Subl Generic drug: Melatonin take 1 tablet by mouth at bedtime if needed for insomnia ReliOn Premier Classic Jessika Use to test blood sugar as directed ReliOn Premier Test Strp Generic drug: Glucose Blood Use to test blood sugar 4 times daily as directed Simvastatin 20 MG Tablet Commonly known as: Zocor Take 1 Tablet by mouth every evening. traMADol 50 MG Tablet Commonly known as: Ultram Take 1 Tablet by mouth every 8 hours as needed for Pain, Moderate for up to 15 days. Vitamin D3 50 MCG (2000 UT) Capsule Take 1 Capsule by mouth in the morning. Every morning.. STOP taking these medications amLODIPine 5 MG Tablet Commonly known as: Norvasc methylPREDNISolone 4 MG Tbpk Commonly known as: Medrol Dosepack Permethrin 5 % cream Commonly known as: Elimite sulfamethoxazole-trimethoprim DS 800-160 MG per tablet Commonly known as: Bactrim DS valACYclovir 1000 MG Tablet Commonly known as: Valtrex SCHEDULED FOLLOW-UP: Future Appointments Appt Date/Time Provider Department 10/13/2024 3:30 PM Johanny Hutton CRNP Pulmonary Medicine [facility] 10/14/2024 2:00 PM [facility] Peng[facility] 10/28/2024 1:30 PM Washington Gordon MD Ophthalmology [facility] 12/15/2024 4:20 PM Elie Dixon MD Nephrology [facility] 12/23/2024 10:30 AM Archana Nava MD Ophthalmology [facility] 12/24/2024 10:30 AM Angela Briggs CRNP Cardiology [facility] 01/22/2025 1:15 PM US1 [facility] Radiology [facility] Other Information Indwelling Devices: LINES ALL Duration Peripheral Line Left;Lower;Anterior Arm 22 Gauge 161 days Peripheral Line Left;Lower Arm 22 Gauge 4 days Vital Signs (last recorded): Most Recent Systolic BP: 136 mmHg (10/10/24 1500) Most Recent Diastolic BP: 66 mmHg (10/10/24 1500) Pulse: 66 (10/10/24 1500) Resp: 16 (10/10/24 0300) Most Recent Temperature: 37.83 C (10/10/24 1500) Weight: 112.4 kg (247 lb 11.2 oz) (10/09/24 0700) SpO2: 96 % (10/10/24 1500) O2 flow rate: 2 L/MIN (10/09/24 1900) Allergies: Patient has no known allergies. Activity: as tolerated Diet: diabetic diet Code Status: Full Code Condition on Discharge: stable Isolation status: None Cognition: normal HOSPITAL CONSULTS ORDERED: WOUND/OSTOMY CONSULT IP PODIATRY CONSULT IP THORACIC MEDICINE / PULMONOLOGY CONSULT IP CRITICAL CARE MEDICINE CONSULT IP WOUND/OSTOMY CONSULT IP ADULT PHYSICAL THERAPY CONSULT IP ADULT OCCUPATIONAL THERAPY CONSULT IP DERMATOLOGY CONSULT IP REFERRING PHYSICIAN: REF: SELF [address] ADDRESS AVAILABLE PRIMARY CARE PROVIDER: PCP: Denis Urbina MD [address] [facility] / [place] [address] (office) [phone] (fax) Note: To contact a physician responsible for this patient’s hospital care, please call [employer] [phone]. DISCLAIMER: The document above describes current episode of care provided by me. Customized document templates,and prior care notes (for the same patient) by me may be utilized (with updated content) within thecurrent document in order to maintain consistency of recommended individualized diagnostic workup and treatment plan. This dictation was verbally transcribed via [employer] system software. Occasional Errors, spelling flaws and omissions are inherent in digital transcriptions. Please contact me for any clarification/correction in the dictated transcript as needed. Cosigned by Raven Yañez MD at 10/10/2024 3:29 PM EST Associated attestation - Raven Yañez MD - 10/10/2024 3:29 PM EST I saw and evaluated the patient today. I have reviewed the resident/fellow physician note and agree. I spent a total of 40 minutes providing discharge day management for this patient. The management included final examination of the patient, discussion of the hospital stay with the patient and/or caregivers, and preparation of discharge records, prescriptions, and referral forms that relate to thepatient's hospital stay. This time is reflective of my part in the discharge day management as documented in the summary and notes, and doesn't include resident or other providers time providing the above to the patient documented in this encounter Discharge Instructions * Discharge Instr - AVS* Stacy Jaimes MD - 10/10/2024 1:20 PM EST Discharge Date: 10/10/2024 Brief summary of inpatient care: Meera Mcgraw was admitted to [facility] on 10/02/2024 with lower extremityworsening wound, new rash and shortness of breath from home. The primary diagnosis at discharge was acute on chronic respiratory failure secondary to heart failure exacerbation. Meera Mcgraw is being discharged to correction. The Hospital Medicine physician(s) at the time of discharge included: Raven Yañez MD To reach this Provider Sunday through Sunday (8:00 AM to 4:30 PM) for any questions or test results: Call [phone] For after-hours concerns: Call [phone] and ask that the provider bond clerk for the Department ofspital Medicine be paged. Inpatient test results pending: none Operations & Procedures: none Code Status: Full Code Advance Directive Documentation: Advance Directive Does the Patient have an Advance Directive? No Diet: Carbohydrate-controlled diet Activity: As instructed by Physical Therapy Meera should continue the following therapies: Physical Therapy and Occupational Therapy Additional Precautions: none Isolation Status: None Mentation at Discharge: normal Future Studies Required: BMP: date - 1 week and CBC: date - 1 week Respiratory Support at Discharge: oxygen at 3 L : setting - january wean PRIMARY CARE PROVIDER: PCP: Denis Urbina MD [address] [place] [address] (office) [phone] (fax) Special Instructions: End date for medications including antibiotics and anticoagulants: None Follow up with PCP in 1 week Follow up with Dermatology 1 week Follow up with Podiatry in 2 weeks - Call your primary care physician or seek medical attention if weight gain, chest pain, worsening rash, palpitations, leg swelling,. - Do not use alcohol products in anyway! - Use caution when standing or walking since you are at an increased risk for falls - Monitor your blood pressure and pulse and keep a record for your physician to review Please have the patient return to the Emergency Department for any of the following: chest pain, chest pressure, chest tightness, difficulty breathing. The patient should not smoke or use tobacco products in any way! documented in this encounter Progress Notes * Stacy Jaimes MD - 10/09/2024 6:48 AM EST Images from the original note were not included. [facility] MS-[id number] INTERVAL HISTORY: Patient seen and examined at bedside today. Overnight: No overnight event Patient is hemodynamically stable. Patient has no new complaints today. Patient denies any headaches, chills, fever, chest pain, nausea, vomiting, dysuria or stool disturbances. Objective Physical Exam Most Recent Vital Signs: BP: 124 mmHg/54 mmHg (10/09/24 1100) Pulse: 57 (10/09/24 1100) Resp: 18 (10/09/24 1100) Temp: 36.17 C (10/09/241099) Temp Summary: Temp Min: 36.2 °C (97.1 °F) Max: 37.3 °C (99.2 °F) SpO2: 95 % (10/09/24 1100) O2 flow rate: 3 L/MIN (10/09/241099) Supplemental O2 Delivery: Nasal Cannula (10/09/241099) Constitutional: Alert and interactive, in no apparent distress. HEENT: Normocephalic, atraumatic, EOM intact. Neck: Supple, normal range of motion. Cardiovascular: Regular rate and rhythm, no murmurs appreciated. Pulmonary: Clear to auscultation bilaterally, normal work of breathing, no wheezes or crackles . Abdomen: Soft, nontender, nondistended, bowel sounds present. Extremities: Bilateral lower extremity wrapped with Christopher wraps. range of motion at baseline. Neuro: No focal neurologic deficit. Psych: Normal affect and behavior. Skin: Multiple papular rash and excoriation lua on upper limbs and back. Urethral Catheter Regular catheter (Active) Number of days: 5 Peripheral Line Left;Lower Arm 22 Gauge (Active) Number of days: 3 STUDIES: Encounter Orders Labs and other studies reviewed with pertinent findings noted below: Recent Results (from the past 12 hours) BASIC METABOLIC PANEL Collection Time: 10/09/24 6:18 AM Result Value Ref Range BUN 39 (H) 6 - 20 mg/dL CREATININE 1.4 (H) 0.5 - 1.0 mg/dL EGFR 42 (L) >=60 mL/min SODIUM 137 135 - 146 mmol/L POTASSIUM 4.7 3.5 - 5.1 mmol/L CHLORIDE 94 (L) 98 - 107 mmol/L CO2 35 (H) 22 - 32 mmol/L ANION GAP 8 7 - 15 mmol/L GLUCOSE 166 (H) 70 - 120 mg/dL CALCIUM 8.8 8.4 - 10.2 mg/dL CBC Collection Time: 10/09/24 6:18 AM Result Value Ref Range WBC 6.82 4.00 - 10.80 K/uL RBC 4.37 3.85 - 5.15 M/uL HGB 11.8 (L) 12.0 - 15.3 g/dL HCT 39.5 36.0 - 45.2 % MCV 90.4 81.5 - 97.5 fL MCH 27.0 27.0 - 34.0 pg MCHC 29.9 32.0 - 36.0 g/dL RDW 15.2 11.5 - 15.5 % PLT 169 140 - 400 K/uL MPV 9.1 6.6 - 11.1 fL nRBCs 0 <=0 /100 WBCs MAGNESIUM Collection Time: 10/09/24 6:18 AM Result Value Ref Range Magnesium 2.1 1.5 - 2.6 mg/dL GLUCOSE METER, POINT OF CARE Collection Time: 10/09/24 12:26 PM Result Value Ref Range GLUCOSE - POCT 167 (H) 70 - 120 mg/dL ] VASC DUPLEX VENOUS LE BILAT Final Result VASCULAR LAB RESULTS DATE OF EXAM: 10/05/24 PRESENTING CONDITIONS: Generalized Edema Immediately before proceeding with the vascular lab procedure reported below, the identity of the patient, the correct exam and the correct procedural site were verified. PHYSICIAN REPORT: Lower Extremity Venous Duplex Examination Color flow Doppler, spectral analysis, and transducer compression techniques were applied during this ultrasound image examination. RIGHT LOWER EXTREMITY On duplex examination, the right common femoral vein, the sapheno-femoral junction, the femoral vein in the thigh and popliteal vein are all free of internal echoes and demonstrate normal transducer compressibility during batista scale imaging and normal respiratory and augmentation response during Doppler interrogation. The posterior tibial veins and peroneal veins demonstrate no evidence of thrombosis. LEFT LOWER EXTREMITY On duplex examination, the left common femoral vein, the sapheno-femoral junction, the femoral vein in the thigh, and popliteal vein are all free of internal echoes and demonstrate normal transducer compressibility during batista scale imaging and normal respiratory and augmentation response during Doppler interrogation. The posterior tibial veins and peroneal veins demonstrate no evidence of thrombosis. IMPRESSION: Right lower extremity with no evidence of acute deep venous thrombosis. Left lower extremity with no evidence of acute deep venous thrombosis. CT CHEST WO CONTRAST Final Result EXAM EXAM: CT CHEST WO CONTRAST DATE [...] bilateral lower lobes. New triangular juxtapleural density is present in the right lower lobe on image [...] Mild incidental nodularity left adrenal gland. Cholelithiasis. IMPRESSION IMPRESSION 1. Dependent juxtapleural consolidation with associated [...] details as above. XR CHEST 1 VIEW Final Result EXAM XR CHEST 1 VIEW - 10/02/2024 8:53 pm HISTORY Shortness of breath TECHNIQUE Single-view chest COMPARISON None. FINDINGS Cardiomediastinal silhouette is normal. No consolidation, mass, pneumothorax, or pleural effusion. Vascular congestion. The underlying bony structures are normal for the patient's age. IMPRESSION IMPRESSION Vascular congestion Assessment and Plan IMPRESSION : Principal Problem: Heart failure, systolic and diastolic, acute on chronic ([facility]) Active Problems: Restless leg syndrome SLEEP APNEA, UNSPECIFIED Major depressive disorder Dyslipidemia, goal LDL below 100 HTN, goal below 140/90 SOB (shortness of breath) Type 2 diabetes mellitus with diabetic polyneuropathy, with long-term current use of insulin ([facility]) Obesity hypoventilation syndrome ([facility]) BMI 40.0-44.9, adult ([facility]) COPD, group C, by GOLD 2017 classification ([facility]) Venous stasis ulcers of both lower extremities ([facility]) Hyperkalemia Cellulitis Acute on chronic respiratory failure with hypercapnia ([facility]) Resolved Problems: * No resolved hospital problems. * DIFFERENTIAL AND PLAN: 69-year-old female with a PMH significant for [...] requiring BIPAP and PCU level of care. Acute on chronic hypoxic respiratory failure 2/2 to HFpEF BNP at presentation 5502 Chest x-ray on presentation showed vascular congestion. 2D Echo from 05/01/2024 showed LVEF of 55% and grade 3 LV diastolic dysfunction Limited echo from 10/06/2024 revealed a left ventricular ejection fraction of 60%. With mildly reduced right ventricular systolic function and an elevated right atrial pressure of 15 mmHg. To switch from oral lasix 40mg daily to [employer] Torsemide 40mg daily Keep K>4 and Mag >2 Continue [employer] carvedilol. Patient was short of breath on exertion when oxygen was weaned to 3 L yesterday. Intake/Output Summary (Last 24 hours) at 10/09/2024 0648 Last data filed at 10/08/2024 1800 Gross per 24 hour Intake 600 ml Output 1575 ml Net -975 ml COPD Patient not in exacerbation. Hypercapnic episode while in PCU requiring BiPAP likely due to opioid use per CCM notes. Elevated bicarb 37, likely due to contraction alkalosis from diuresis. Continue p.r.n. albuterol Continue incentive spirometry, flutter therapy HTN HLD Continue [employer] amlodipine, Coreg and simvastatin CKD stage IIIB Stable Serum creatinine 1.3 today Bilateral lower extremity erythema Bilateral lower extremity venous insufficiency Cellulitis No fevers, no leukocytosis Wound Care following Continue bilateral lower extremity dressing of ABDs, kerlix and CHRISTOPHER wrap Completed 5 days of Keflex Podiatry following Continue with Flexeril Restless leg syndrome Continue gabapentin Type 2 diabetes A1c 8.2 Continue [employer] insulin glargine 15 units HS Continue medium dose sliding scale Anxiety/depression Continue Lexapro and hydroxyzine GERD Continue omeprazole Tobacco use disorder Continuing Nicotine patch Papular rash with excoriation lua Suspected to be scabies Completed permethrin cream in the PCU Calamine lotion for itching Ask-a-doc dermatology consulted PHARMACOLOGIC VTE PROPHYLAXIS: hEParin CODE STATUS: Full Code EXPECTED DISCHARGE DATE: 10/09/2024 Patient was seen, was examined, and was discussed with Raven Yañez MD DISCLAIMER: The document above describes current episode of care provided by me. Customized document templates,and prior care notes (for the same patient) by me may be utilized (with updated content) within thecurrent document in order to maintain consistency of recommended individualized diagnostic workup and treatment plan. This dictation was verbally transcribed via [employer] system software. Occasional Errors, spelling flaws and omissions are inherent in digital transcriptions. Please contact me for any clarification/correction in the dictated transcript as needed. . Cosigned by Raven Yañez MD at 10/09/2024 2:55 PM EST Associated attestation - Raven Yañez MD - 10/09/2024 2:55 PM EST I saw and evaluated the patient today. I have reviewed the resident/fellow physician note and agree. Acute hypoxic resp failure 2/2 HFpEF Improving Cont PO torsemide per home dose Still on 4L oxygen try to wean--. 3L Cont [employer] coreg Vitals stable Monitor labs and alkalosis Agree with plan below. * Stacy Jaimes MD - 10/08/2024 6:35 AM EST Images from the original note were not included. [facility] MS-619/[id number] INTERVAL HISTORY: Patient seen and examined at bedside today. Overnight: No overnight event Patient is hemodynamically stable. Patient has no new complaints today. Patient denies any headaches, chills, fever, chest pain, nausea, vomiting, dysuria or stool disturbances. Objective Physical Exam Most Recent Vital Signs: BP: 131 mmHg/50 mmHg (10/08/241099) Pulse: 67 (10/08/241099) Resp: 18 (10/08/241099) Temp: 36.5 C (10/08/241099) Temp Summary: Temp Min: 36.5 °C (97.7 °F) Max: 36.9 °C (98.5 °F) SpO2: 92 % (10/08/241099) O2 flow rate: 4 L/MIN (01/15/25 1100) Supplemental O2 Delivery: Nasal Cannula (10/08/24 1100) Constitutional: Alert and interactive, in no apparent distress. HEENT: Normocephalic, atraumatic, EOM intact. Neck: Supple, normal range of motion. Cardiovascular: Regular rate and rhythm, no murmurs appreciated. Pulmonary: Clear to auscultation bilaterally, normal work of breathing, no wheezes or crackles . Abdomen: Soft, nontender, nondistended, bowel sounds present. Extremities: Bilateral lower extremity wrapped with Christopher wraps. range of motion at baseline. Neuro: No focal neurologic deficit. Psych: Normal affect and behavior. Skin: Multiple papular rash and excoriation lua on upper limbs and back. Urethral Catheter Regular catheter (Active) Number of days: 4 Peripheral Line Left;Lower Arm 22 Gauge (Active) Number of days: 2 STUDIES: Encounter Orders Labs and other studies reviewed with pertinent findings noted below: Recent Results (from the past 12 hours) BASIC METABOLIC PANEL Collection Time: 10/08/24 6:38 AM Result Value Ref Range BUN 35 (H) 6 - 20 mg/dL CREATININE 1.3 (H) 0.5 - 1.0 mg/dL EGFR 45 (L) >=60 mL/min SODIUM 139 135 - 146 mmol/L POTASSIUM 4.5 3.5 - 5.1 mmol/L CHLORIDE 95 (L) 98 - 107 mmol/L CO2 37 (H) 22 - 32 mmol/L ANION GAP 7 7 - 15 mmol/L GLUCOSE 148 (H) 70 - 120 mg/dL CALCIUM 8.7 8.4 - 10.2 mg/dL CBC Collection Time: 10/08/24 6:38 AM Result Value Ref Range WBC 6.93 4.00 - 10.80 K/uL RBC 4.31 3.85 - 5.15 M/uL HGB 11.5 (L) 12.0 - 15.3 g/dL HCT 39.2 36.0 - 45.2 % MCV 91.0 81.5 - 97.5 fL MCH 26.7 27.0 - 34.0 pg MCHC 29.3 32.0 - 36.0 g/dL RDW 14.6 11.5 - 15.5 % PLT 183 140 - 400 K/uL MPV 8.9 6.6 - 11.1 fL nRBCs 0 <=0 /100 WBCs MAGNESIUM Collection Time: 10/08/24 6:38 AM Result Value Ref Range Magnesium 2.0 1.5 - 2.6 mg/dL GLUCOSE METER, POINT OF CARE Collection Time: 10/08/24 7:22 AM Result Value Ref Range GLUCOSE - POCT 139 (H) 70 - 120 mg/dL GLUCOSE METER, POINT OF CARE Collection Time: 10/08/24 11:30 AM Result Value Ref Range GLUCOSE - POCT 196 (H) 70 - 120 mg/dL ] VASC DUPLEX VENOUS LE BILAT Final Result VASCULAR LAB RESULTS DATE OF EXAM: 10/05/24 PRESENTING CONDITIONS: Generalized Edema Immediately before proceeding with the vascular lab procedure reported below, the identity of the patient, the correct exam and the correct procedural site were verified. PHYSICIAN REPORT: Lower Extremity Venous Duplex Examination Color flow Doppler, spectral analysis, and transducer compression techniques were applied during this ultrasound image examination. RIGHT LOWER EXTREMITY On duplex examination, the right common femoral vein, the sapheno-femoral junction, the femoral vein in the thigh and popliteal vein are all free of internal echoes and demonstrate normal transducer compressibility during batista scale imaging and normal respiratory and augmentation response during Doppler interrogation. The posterior tibial veins and peroneal veins demonstrate no evidence of thrombosis. LEFT LOWER EXTREMITY On duplex examination, the left common femoral vein, the sapheno-femoral junction, the femoral vein in the thigh, and popliteal vein are all free of internal echoes and demonstrate normal transducer compressibility during batista scale imaging and normal respiratory and augmentation response during Doppler interrogation. The posterior tibial veins and peroneal veins demonstrate no evidence of thrombosis. IMPRESSION: Right lower extremity with no evidence of acute deep venous thrombosis. Left lower extremity with no evidence of acute deep venous thrombosis. CT CHEST WO CONTRAST Final Result EXAM EXAM: CT CHEST WO CONTRAST DATE [...] bilateral lower lobes. New triangular juxtapleural density is present in the right lower lobe on image [...] Mild incidental nodularity left adrenal gland. Cholelithiasis. IMPRESSION IMPRESSION 1. Dependent juxtapleural consolidation with associated [...] details as above. XR CHEST 1 VIEW Final Result EXAM XR CHEST 1 VIEW - 10/02/2024 8:53 pm HISTORY Shortness of breath TECHNIQUE Single-view chest COMPARISON None. FINDINGS Cardiomediastinal silhouette is normal. No consolidation, mass, pneumothorax, or pleural effusion. Vascular congestion. The underlying bony structures are normal for the patient's age. IMPRESSION IMPRESSION Vascular congestion Assessment and Plan IMPRESSION : Principal Problem: Heart failure, systolic and diastolic, acute on chronic ([facility]) Active Problems: Restless leg syndrome SLEEP APNEA, UNSPECIFIED Major depressive disorder Dyslipidemia, goal LDL below 100 HTN, goal below 140/90 SOB (shortness of breath) Type 2 diabetes mellitus with diabetic polyneuropathy, with long-term current use of insulin ([facility]) Obesity hypoventilation syndrome ([facility]) BMI 40.0-44.9, adult ([facility]) COPD, group C, by GOLD 2017 classification ([facility]) Venous stasis ulcers of both lower extremities ([facility]) Hyperkalemia Cellulitis Acute on chronic respiratory failure with hypercapnia ([facility]) Resolved Problems: * No resolved hospital problems. * DIFFERENTIAL AND PLAN: Acute on chronic hypoxic respiratory failure 2/2 to HFpEF BNP at presentation 5502 Chest x-ray on presentation showed vascular congestion. 2D Echo from 05/01/2024 showed LVEF of 55% and grade 3 LV diastolic dysfunction Limited echo from 10/06/2024 revealed a left ventricular ejection fraction of 60%. With mildly reduced right ventricular systolic function and an elevated right atrial pressure of 15 mmHg. Currently on lasix 40 BID. To switch to oral lasix 40mg daily Holding [employer] torsemide Keep K>4 and Mag >2 Continue [employer] carvedilol. To wean down oxygen back to baseline 2L Intake/Output Summary (Last 24 hours) at 10/08/2024 0659 Last data filed at 10/08/2024 0600 Gross per 24 hour Intake 390 ml Output 3450 ml Net -3060 ml COPD Patient not in exacerbation. Hypercapnic episode while in PCU requiring BiPAP likely due to opioid use per CCM notes. Elevated bicarb 37, likely due to contraction alkalosis from diuresis. Continue p.r.n. albuterol Continue incentive spirometry, flutter therapy HTN HLD Continue [employer] amlodipine, Coreg and simvastatin CKD stage IIIB Stable Serum creatinine 1.3 today Bilateral lower extremity erythema Bilateral lower extremity venous insufficiency Cellulitis No fevers, no leukocytosis Wound Care following Continue bilateral lower extremity dressing of ABDs, kerlix and CHRISTOPHER wrap Completed 5 days of Keflex Podiatry following Continue with Flexeril Restless leg syndrome Continue gabapentin Type 2 diabetes A1c 8.2 Continue [employer] insulin glargine 15 units HS Continue medium dose sliding scale Anxiety/depression Continue Lexapro and hydroxyzine GERD Continue omeprazole Tobacco use disorder Continuing Nicotine patch Papular rash with excoriation lua Suspected to be scabies Completed permethrin cream in the PCU To monitor PHARMACOLOGIC VTE PROPHYLAXIS: hEParin CODE STATUS: Full Code EXPECTED DISCHARGE DATE: 10/09/2024 Patient was seen, was examined, and was discussed with Raven Yañez MD DISCLAIMER: The document above describes current episode of care provided by me. Customized document templates,and prior care notes (for the same patient) by me may be utilized (with updated content) within thecurrent document in order to maintain consistency of recommended individualized diagnostic workup and treatment plan. This dictation was verbally transcribed via [employer] system software. Occasional Errors, spelling flaws and omissions are inherent in digital transcriptions. Please contact me for any clarification/correction in the dictated transcript as needed. . Cosigned by Raven Yañez MD at 10/08/2024 2:29 PM EST Associated attestation - Raven Yañez MD - 10/08/2024 2:29 PM EST I saw and evaluated the patient today. I have reviewed the resident/fellow physician note and agree. * Lazaro Hatch MD - 10/07/2024 12:30 PM EST Images from the original note were not included. [facility] PCU IP-03/A INTERVAL HISTORY: 69-year-old lady with past medical history significant for COPD on 2 L of oxygen at baseline, PAOLA on CPAP at nighttime, heart failure with preserved EF (ejection fraction 55%), chronic bilateral lower extremity venous stasis wounds, CKD who presented to the ED for complain of worsening pain and swelling bilateral lower extremities. The patient had difficulty ambulating secondary to the pain. Podia try was consulted recommending weight bearing as tolerated, Keflex without need for urgent/emergentsurgical intervention. Patient was found to be hypercapnic, was admitted to the PCU. The patient is seen and examined at bedside this morning. No overnight events reported. No active complaints this morning. The patient is on 4 - 5 L of oxygen via nasal cannula. The patient denies chest pain, shortness of breath, abdominal pain, nausea, vomiting, headache, constipation or diarrhea. Objective Physical Exam Most Recent Vital Signs: BP: 92 mmHg/40 mmHg (10/07/24 0400) Pulse: 73 (10/07/24 0600) Resp: 25 (10/07/24 0600) Temp: 36.67 C (10/07/24 0800) Temp Summary: Temp Min: 36.7 °C (98 °F) Max: 37.6 °C (99.6 °F) SpO2: 95 % (10/07/24 06) O2 flow rate: 4 L/MIN (10/07/24 1000) Supplemental O2 Delivery: Nasal Cannula (10/07/24 1000) Physical Exam Constitutional: General: She is not in acute distress. Appearance: Normal appearance. She is obese. She is ill-appearing. HENT: Head: Normocephalic. Nose: Nose normal. Mouth/Throat: Mouth: Mucous membranes are moist. Pharynx: Oropharynx is clear. Eyes: Extraocular Movements: Extraocular movements intact. Cardiovascular: Rate and Rhythm: Normal rate and regular rhythm. Pulses: Normal pulses. Heart sounds: Normal heart sounds. No murmur heard. Pulmonary: Effort: Pulmonary effort is normal. Breath sounds: Examination of the right-lower field reveals decreased breath sounds. Examination ofthe left-lower field reveals decreased breath sounds. Decreased breath sounds present. No wheezing or rhonchi. Abdominal: General: Bowel sounds are normal. Palpations: Abdomen is soft. Tenderness: There is no abdominal tenderness. Musculoskeletal: General: Tenderness present. Normal range of motion. Cervical back: Normal range of motion. Right lower leg: No edema. Left lower leg: No edema. Comments: Venous stasis, bilateral lower extremity dressing Skin: General: Skin is warm. Capillary Refill: Capillary refill takes 2 to 3 seconds. Neurological: General: No focal deficit present. Mental Status: She is alert and oriented to person, place, and time. Psychiatric: Mood and Affect: Mood normal. Behavior: Behavior normal. Urethral Catheter Regular catheter (Active) Number of days: 3 Peripheral Line Left;Lower Arm 22 Gauge (Active) Number of days: 1 STUDIES: Encounter Orders Labs and other studies reviewed with pertinent findings noted below: Lab results within last 7 days (see chart for full results) Units 10/07/24 0442 10/06/24 0403 10/05/24 0350 SODIUM mmol/L 138 137 139 POTASSIUM mmol/L 4.9 4.8 4.9 CHLORIDE mmol/L 98 99 102 CO2 mmol/L 35* 31 29 EGFR mL/min 42* 44* 38* BUN mg/dL 37* 40* 45* CREATININE mg/dL 1.4* 1.3* 1.5* GLUCOSE mg/dL 154* 303* 136* Lab results within last 7 days (see chart for full results) Units 10/02/24 2155 10/02/24 1949 Troponin T, High Sensitivity ng/L 72* 77* Lab results within last 7 days (see chart for full results) Units 10/07/24 0442 10/06/24 0403 10/05/24 0350 HGB g/dL 11.8* 10.6* 10.5* HCT % 41.1 36.9 36.5 WBC K/uL 5.69 5.98 6.06 PLT K/uL 174 168 156 Intake/Output Summary (Last 24 hours) at 10/07/2024 1259 Last data filed at 10/07/2024 0400 Gross per 24 hour Intake 240 ml Output 1450 ml Net -1210 ml Lab results within last 7 days (see chart for full results) Units 10/04/24 0755 10/02/24 1949 Protein g/dL 7.2 7.7 Bilirubin, Total mg/dL 0.3 0.3 Alkaline Phosphatase U/L 84 91 AST U/L 17 11 ALT U/L 7* 5* Assessment and Plan IMPRESSION : Principal Problem: Heart failure, systolic and diastolic, acute on chronic (HCC) Active Problems: Restless leg syndrome SLEEP APNEA, UNSPECIFIED Major depressive disorder Dyslipidemia, goal LDL below 100 HTN, goal below 140/90 SOB (shortness of breath) Type 2 diabetes mellitus with diabetic polyneuropathy, with long-term current use of insulin (HCC) Obesity hypoventilation syndrome (HCC) BMI 40.0-44.9, adult (HCC) COPD, group C, by GOLD 2017 classification ([facility]) Venous stasis ulcers of both lower extremities ([facility]) Hyperkalemia Cellulitis Acute on chronic respiratory failure with hypercapnia ([facility]) Resolved Problems: * No resolved hospital problems. * DIFFERENTIAL AND PLAN: Acute on chronic hypoxic and hypercapnic respiratory failure Obstructive sleep apnea Acute exacerbation of heart failure with preserved EF Injection Lasix 40 twice daily. Continue diuresis with Net negative 2 L goal Hold [employer] torsemide Net I/N last 24 hours -1480 Continue oxygen via nasal cannula, titrate to maintain SpO2 > 92% CKD stage IIIB Stable Serum creatinine down to 1.4 Hypertension Continue [employer] amlodipine and Coreg Hyperlipidemia Continue [employer] simvastatin COPD exacerbation unlikely Continue albuterol p.r.n. Continue incentive spirometry, flutter therapy, Respiratory patient driven protocol Bilateral lower extremity erythema, tenderness Bilateral lower extremity venous insufficiency Cellulitis No fevers, leukocytosis Follow-up outpatient Wound Care Continue Bilateral lower extremity dressing of ABDs, Kerlix and Christopher wrap Continue Keflex, day 01/26 Continue Flexeril Q 8 p.r.n. Restless leg syndrome Continue gabapentin Diabetes Mellitus HbA1c 8.2 Continue [employer] Insulin glargine 15 units HS + insulin according to sliding scale Anxiety/depression Continue Lexapro 10 mg Continue Hydroxyzine p.r.n. GERD Continue [employer] Prilosec Tobacco use disorder Continue Nicotine patch PHARMACOLOGIC VTE PROPHYLAXIS: hEParin CODE STATUS: Full Code EXPECTED DISCHARGE DATE: No information available Patient was seen, was examined, and was discussed with Gilmar Ford DO . Cosigned by Gilmar Ford DO at 10/07/2024 9:10 PM EST Associated attestation - Gilmar Ford DO - 10/07/2024 9:10 PM EST I have discussed the patient's management with the Resident Physician and agree with the note. Please refer to the documented findings and plan of care. The patient's service consisted of an evaluation. I have seen and evaluated the patient on the date of service listed above. Principal Problem: Heart failure, systolic and diastolic, acute on chronic (HCC) (POA: Yes) Active Problems: Restless leg syndrome (POA: Yes) SLEEP APNEA, UNSPECIFIED (POA: Yes) Major depressive disorder (POA: Yes) Overview: ICD-10 update of inactive term Dyslipidemia, goal LDL below 100 (POA: Yes) Overview: Per Lipid Taxonomy. HTN, goal below 140/90 (POA: Yes) SOB (shortness of breath) (POA: Yes) Type 2 diabetes mellitus with diabetic polyneuropathy, with long-term current use of insulin (HCC) (POA: Yes) Obesity hypoventilation syndrome (HCC) (POA: Yes) BMI 40.0-44.9, adult (HCC) (POA: Yes) COPD, group C, by GOLD 2017 classification (HCC) (POA: Yes) Overview: Per COPD GOLD Classification Venous stasis ulcers of both lower extremities (HCC) (POA: Yes) Hyperkalemia (POA: Unknown) Cellulitis (POA: Unknown) Acute on chronic respiratory failure with hypercapnia (HCC) (POA: Unknown) POA = Present On Admission Continues to improve clinically with diuresis. <2L out today. Bump daily dose of lasix to 80mg Can consider use of Diamox with rising serum HCO3-, trend in AM Stable for med surg Remainder of ongoing care as documented below. I spent a total of 52 minutes coordinating, documenting, and providing care for this patient excluding time spent in the performance of separately billed services or time spent by another provider/QHP. * Sandrine Ferris MD - 10/06/2024 6:38 PM EST Images from the original note were not included. [facility] PCU IP-03/A INTERVAL HISTORY: Patient was seen and examined on bedside. Patient did not have any overnight events. Currently, patient is complaining of bilateral lower extremity pain. Patient given IV Dilaudid 1 mg one time. Willavoid opioids in light of hypercapnia. Patient is noncompliant with her BiPAP. We will funeral prearrangement counselor patient regarding need for BiPAP and will consider high-flow nasal cannula by patient still remains noncompliant. Patient was able to go up device verbally deny any fever, nausea, vomiting, diarrhea and constipation. review of all systems negative expect for pertinent findings stated above Objective Physical Exam Most Recent Vital Signs: BP: 142 mmHg/68 mmHg (10/06/24 1700) Pulse: 67 (10/06/24 1700) Resp: 16 (10/06/24 170) Temp: 37.39 C (10/06/24 1600) Temp Summary: Temp Min: 36.8 °C (98.2 °F) Max: 37.4 °C (99.3 °F) SpO2: 94 % (10/06/24 170) O2 flow rate: 6 L/MIN (10/06/24 1300) Supplemental O2 Delivery: Nasal Cannula (10/06/24 1300) Physical Exam Constitutional: Appearance: She is obese. She is toxic-appearing. Comments: Patient appears to be drowsy HENT: Head: Normocephalic and atraumatic. Mouth/Throat: Mouth: Mucous membranes are moist. Eyes: Extraocular Movements: Extraocular movements intact. Cardiovascular: Rate and Rhythm: Normal rate and regular rhythm. Pulses: Normal pulses. Heart sounds: Normal heart sounds. Pulmonary: Breath sounds: No wheezing or rhonchi. Abdominal: General: Abdomen is flat. Bowel sounds are normal. Musculoskeletal: General: Swelling and tenderness present. Cervical back: Normal range of motion. Comments: Bilateral lower extremity swelling and tenderness Skin: Findings: Rash present. Comments: Bilateral lower extremity venous insufficiency Neurological: General: No focal deficit present. Mental Status: She is oriented to person, place, and time. Urethral Catheter Regular catheter (Active) Number of days: 2 Peripheral Line Left;Lower Arm 22 Gauge (Active) Number of days: 0 STUDIES: Encounter Orders Labs and other studies reviewed with pertinent findings noted below: VASC DUPLEX VENOUS LE BILAT Narrative: VASCULAR LAB RESULTS DATE OF EXAM: 10/05/24 PRESENTING CONDITIONS: Generalized Edema Immediately before proceeding with the vascular lab procedure reported below, the identity of the patient, the correct exam and the correct procedural site were verified. PHYSICIAN REPORT: Lower Extremity Venous Duplex Examination Color flow Doppler, spectral analysis, and transducer compression techniques were applied during this ultrasound image examination. RIGHT LOWER EXTREMITY On duplex examination, the right common femoral vein, the sapheno-femoral junction, the femoral vein in the thigh and popliteal vein are all free of internal echoes and demonstrate normal transducer compressibility during batista scale imaging and normal respiratory and augmentation response during Doppler interrogation. The posterior tibial veins and peroneal veins demonstrate no evidence of thrombosis. LEFT LOWER EXTREMITY On duplex examination, the left common femoral vein, the sapheno-femoral junction, the femoral vein in the thigh, and popliteal vein are all free of internal echoes and demonstrate normal transducer compressibility during batista scale imaging and normal respiratory and augmentation response during Doppler interrogation. The posterior tibial veins and peroneal veins demonstrate no evidence of thrombosis. Impression: : Right lower extremity with no evidence of acute deep venous thrombosis. Left lower extremity with no evidence of acute deep venous thrombosis. CT CHEST WO CONTRAST Narrative: EXAM EXAM: CT CHEST WO CONTRAST DATE [...] Mild incidental nodularity left adrenal gland. Cholelithiasis. Impression: IMPRESSION 1. Dependent juxtapleural consolidation with associated [...] 4. Additional findings and details as above. Recent Results (from the past 24 hours) GLUCOSE METER, POINT OF CARE Collection Time: 10/05/24 8:46 PM Result Value Ref Range GLUCOSE - POCT 163 (H) 70 - 120 mg/dL BASIC METABOLIC PANEL Collection Time: 10/06/24 4:03 AM Result Value Ref Range BUN 40 (H) 6 - 20 mg/dL CREATININE 1.3 (H) 0.5 - 1.0 mg/dL EGFR 44 (L) >=60 mL/min SODIUM 137 135 - 146 mmol/L POTASSIUM 4.8 3.5 - 5.1 mmol/L CHLORIDE 99 98 - 107 mmol/L CO2 31 22 - 32 mmol/L ANION GAP 7 7 - 15 mmol/L GLUCOSE 303 (H) 70 - 120 mg/dL CALCIUM 8.4 8.4 - 10.2 mg/dL CBC Collection Time: 10/06/24 4:03 AM Result Value Ref Range WBC 5.98 4.00 - 10.80 K/uL RBC 4.04 3.85 - 5.15 M/uL HGB 10.6 (L) 12.0 - 15.3 g/dL HCT 36.9 36.0 - 45.2 % MCV 91.3 81.5 - 97.5 fL MCH 26.2 27.0 - 34.0 pg MCHC 28.7 32.0 - 36.0 g/dL RDW 14.6 11.5 - 15.5 % PLT 168 140 - 400 K/uL MPV 9.2 6.6 - 11.1 fL nRBCs 0 <=0 /100 WBCs MAGNESIUM Collection Time: 10/06/24 4:03 AM Result Value Ref Range Magnesium 1.9 1.5 - 2.6 mg/dL GLUCOSE METER, POINT OF CARE Collection Time: 10/06/24 5:57 AM Result Value Ref Range GLUCOSE - POCT 270 (H) 70 - 120 mg/dL GLUCOSE METER, POINT OF CARE Collection Time: 10/06/24 10:31 AM Result Value Ref Range GLUCOSE - POCT 233 (H) 70 - 120 mg/dL ECHO, TTE, LIMITED Collection Time: 10/06/24 11:31 AM Result Value Ref Range LEFT VENTRICULAR EJECTION FRACTION 60 % GLUCOSE METER, POINT OF CARE Collection Time: 10/06/24 3:58 PM Result Value Ref Range GLUCOSE - POCT 183 (H) 70 - 120 mg/dL Assessment and Plan IMPRESSION : Principal Problem: Heart failure, systolic and diastolic, acute on chronic ([facility]) Active Problems: Restless leg syndrome SLEEP APNEA, UNSPECIFIED Major depressive disorder Dyslipidemia, goal LDL below 100 HTN, goal below 140/90 SOB (shortness of breath) Type 2 diabetes mellitus with diabetic polyneuropathy, with long-term current use of insulin ([facility]) Obesity hypoventilation syndrome ([facility]) BMI 40.0-44.9, adult ([facility]) COPD, group C, by GOLD 2017 classification ([facility]) Venous stasis ulcers of both lower extremities ([facility]) Hyperkalemia Cellulitis Acute on chronic respiratory failure with hypercapnia ([facility]) Resolved Problems: * No resolved hospital problems. * DIFFERENTIAL AND PLAN: Acute hypercapnic and hypoxic respiratory failure possibly secondary to CHF exacerbation/less likely COPD exacerbation. HFpEF Patient is on a Thompson catheter Hypertension Hyperlipidemia CKD stage IIIB CXR positive for vascular congestion. Euvolemic on exam. BNP pro of 5502 PAOLA Follow up on RVP Continue with the IV Lasix 60 mg daily. Intake/Output Summary (Last 24 hours) at 10/06/20241838 Last data filed at 10/06/2024 1200 Gross per 24 hour Intake 960 ml Output 2000 ml Net -1040 ml Holding [employer] torsemide. Restarted [employer] amlodipine and Coreg Continue with BiPAP. Can consider high-flow nasal cannula if patient remains to be noncompliant. We will wean off oxygen as tolerated. Continue with [employer] Zocor continue to monitor CBC, BMP, replace lytes when necessary, goal K>4, Mg>2 continue to monitor I&Os. History of COPD Less likely exacerbation. Continue with albuterol nebs p.r.n. Patient is not wheezing currently. We will hold off on steroids. Continue with IS, flutter therapy and respiratory patient driven protocol. Bilateral lower extremity erythema, tenderness Bilateral lower extremity venous insufficiency Cellulitis/wounds Restless leg syndrome Podiatry following and did not recommend any acute surgical interventions. Wound consult placed Continue with Keflex 500 mg We will avoid opioids due to hypercapnia. Patient placed on 1 mg Dilaudid q.6 p.r.n. for pain. We will DC Dilaudid patient continues to have hypercapnia. Continue with Flexeril as needed. Avoid NSAIDs in light of CKD. Continue to monitor fever, CBC Diabetes mellitus type 2 HbA1c of 8.2 Patient home regimen consists of Lantus 15 units HS, and insulin sliding scale We will start patient on 15 units of Lantus and ISS medium scale Can titrate up as needed based on the blood sugar trend. Continue to monitor blood sugar levels with Accu-Cheks. Anxiety/depression Continuous citalopram, hydroxyzine p.r.n. GERD Continue Prilosec Anemia most likely due to chronic disease Iron panel normal Patient receiving IV Dilaudid 1 mg q.6 hours p.r.n. for pain DVT prophylaxis: Heparin PHARMACOLOGIC VTE PROPHYLAXIS: hEParin CODE STATUS: Full Code EXPECTED DISCHARGE DATE: No information available Patient was seen, was examined, and was discussed with Gilmar Ford DO . Cosigned by Gilmar Ford DO at 10/06/2024 9:23 PM EST Associated attestation - Gilmar Ford DO - 10/06/2024 9:23 PM EST I have discussed the patient's management with the Resident Physician and agree with the note. Please refer to the documented findings and plan of care. The patient's service consisted of an evaluation. I have seen and evaluated the patient on the date of service listed above. Principal Problem: Heart failure, systolic and diastolic, acute on chronic (HCC) (POA: Yes) Active Problems: Restless leg syndrome (POA: Yes) SLEEP APNEA, UNSPECIFIED (POA: Yes) Major depressive disorder (POA: Yes) Overview: ICD-10 update of inactive term Dyslipidemia, goal LDL below 100 (POA: Yes) Overview: Per Lipid Taxonomy. HTN, goal below 140/90 (POA: Yes) SOB (shortness of breath) (POA: Yes) Type 2 diabetes mellitus with diabetic polyneuropathy, with long-term current use of insulin (HCC) (POA: Yes) Obesity hypoventilation syndrome (HCC) (POA: Yes) BMI 40.0-44.9, adult (HCC) (POA: Yes) COPD, group C, by GOLD 2017 classification (HCC) (POA: Yes) Overview: Per COPD GOLD Classification Venous stasis ulcers of both lower extremities (HCC) (POA: Yes) Hyperkalemia (POA: Unknown) Cellulitis (POA: Unknown) Acute on chronic respiratory failure with hypercapnia (HCC) (POA: Unknown) POA = Present On Admission Seen this am off NIVPPV, doing well. Monitor closely through today to see if she requires additional support. Continue diuresis, at goal of 2L negative daily Remainder of ongoing care as documented below. I spent a total of 55 minutes coordinating, documenting, and providing care for this patient excluding time spent in the performance of separately billed services or time spent by another provider/QHP. * Braxton Elizalde MD - 10/05/2024 1:11 PM EST Follow-up - Thoracic / Pulmonary Medicine Name: Meera Mcgraw Location: [facility] IP-A Date: 10/05/2024 Time: 1:11 PM Clinical Summary: Hospital day #4 for Ms. 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 In the ER, shewas noted to have acute on chronic hypoxic hypercarbic respiratory failure and placed on noninvasive ventilation. Interim History: States that her primary concern has been her leg pain. She otherwise does not haveany new cough, sputum, fevers, or shortness of breath. Of note, when she was last admitted in 2023, I did order an astral ventilator for her. She states she has been on the ventilator, and she was going to follow-up with me and missed her appointment recently because she had leg pain. Review of systems: As per HPI. Otherwise all other systems were negative. PHYSICAL EXAMINATION: Most Recent Vital Signs: BP: 123 mmHg/62 mmHg (10/05/24799) Pulse: 70 (10/05/24899) Resp: 17 (10/05/24899) Temp: 36.44 C (10/05/24799) Temp Summary: Temp Min: 36.4 °C (97.6 °F) Max: 37.6 °C (99.7 °F) SpO2: 98 % (10/05/24 1139) O2 flow rate: 6 L/MIN (10/05/24899) Supplemental O2 Delivery: Non-Invasive CPAP/BiPAP (10/05/24 113) O2 sat: 98% on 40% bilevel. · General: Was initially sleeping when I saw her, and has what appears to be central apneas on herbilevel ST device in the hospital. · Chest: Good air movement. Clear to auscultation without wheezes, rhonchi, or rales. · Heart: Regular without murmurs, gallops, rubs, or heaves. Normal S1S2. · Abd: Soft, non-tender, non-distended, normoactive bowel sounds. · Ext: No edema bilaterally. No cyanosis. No clubbing. Data: Labs: Latest Reference Range & Units 10/04/24 12:09 10/04/24 15:38 10/04/24 21:26 10/05/24 11:07 pH, Arterial 7.350 - 7.450 units 7.215 (L) 7.229 (L) 7.257 (L) 7.265 (L) pCO2, Arterial 35.0 - 45.0 mmHg 79.5 (HH) 76.7 (HH) 74.9 (HH) 78.0 (HH) pO2, Arterial 75.0 - 100.0 mmHg 86.9 85.7 67.0 (L) 59.6 (L) Latest Reference Range & Units 04/30/24 19:10 05/16/24 10:13 10/02/24 19:49 BNP, NT-Pro <300 pg/mL 6,071 (H) 3,456 (H) 5,502 (H) 10/05/24 03:50 WBC 6.06 RBC 3.98 HGB 10.9 (L) 10.5 (L) HCT 36.5 MCV 91.7 MCH 26.4 MCHC 28.8 RDW 14.6 PLT 156 10/03/24 04:06 Color, Urine Light Yellow Clarity, Urine Slightly Cloudy ! Glucose, Urine 250 ! Bilirubin, Urine Negative Ketone, Urine Negative Specific [place], Urine 1.012 Blood, Urine Negative pH, Urine 5.5 Protein, Urine Trace ! Urobilinogen, Urine Normal Nitrite, Urine Negative Esterase, Urine Large ! Bacteria, Urine 0-25 WBC, Urine 30-49 ! RBC, Urine 6-9 ! Hyaline, Cast, Urine 5-9 ! !: Data is abnormal Impression: -- acute on chronic hypoxic hypercarbic respiratory failure -- background obesity hypoventilation syndrome -- acute on chronic right heart failure/pulmonary hypertension -- lower extremity edema -- lower extremity wounds Recommendations: -- I reached out to our Pulmonary office to see if they can get a download from her machine; it is a [employer] machine, but I am not able to see her information in the cloud system. -- advise diuresis with cautious monitoring of her renal function -- noted she has p.r.n. albuterol. Discontinued standing DuoNebs as she is not bronchospastic -- depending on how she does over the next several days, we can make adjustments to her astral device as needed. Home device settings previously ordered in 12/15/2023: Device: Astral Mode: iVAPS-AE Patient height: 64" Target rate: 15, EPAP min: 6 EPAP max: 10 PS min: 8 PS max: 20 Ti min: 0.5 second Ti Max: 1.2 second I spent a total of 55 minutes coordinating, documenting, and providing care for this patient excluding time spent in the performance of separately billed services or time spent by another provider/QHP. * Sandrine Ferris MD - 10/05/2024 10:01 AM EST Images from the original note were not included. [facility] IP-03/A INTERVAL HISTORY: Patient was seen and examined on bedside. Patient did not have any overnight events. Currently, patient is complaining of bilateral lower extremity pain. Patient given IV Dilaudid 1 mg one time. Willavoid opioids in light of hypercapnia. Patient is noncompliant with her BiPAP. We will funeral prearrangement counselor patient regarding need for BiPAP and will consider high-flow nasal cannula by patient still remains noncompliant. Patient was able to go up device verbally deny any fever, nausea, vomiting, diarrhea and constipation. review of all systems negative expect for pertinent findings stated above Objective Physical Exam Most Recent Vital Signs: BP: 123 mmHg/62 mmHg (10/05/24799) Pulse: 70 (10/05/24899) Resp: 17 (10/05/24899) Temp: 36.44 C (10/05/24799) Temp Summary: Temp Min: 36.4 °C (97.6 °F) Max: 37.6 °C (99.7 °F) SpO2: 94 % (10/05/24899) O2 flow rate: 6 L/MIN (10/05/24899) Supplemental O2 Delivery: Nasal Cannula (10/05/24899) Physical Exam Constitutional: Appearance: She is obese. She is toxic-appearing. Comments: Patient appears to be drowsy HENT: Head: Normocephalic and atraumatic. Mouth/Throat: Mouth: Mucous membranes are moist. Eyes: Extraocular Movements: Extraocular movements intact. Cardiovascular: Rate and Rhythm: Normal rate and regular rhythm. Pulses: Normal pulses. Heart sounds: Normal heart sounds. Pulmonary: Breath sounds: No wheezing or rhonchi. Abdominal: General: Abdomen is flat. Bowel sounds are normal. Musculoskeletal: General: Swelling and tenderness present. Cervical back: Normal range of motion. Comments: Bilateral lower extremity swelling and tenderness Skin: Findings: Rash present. Comments: Bilateral lower extremity venous insufficiency Neurological: General: No focal deficit present. Mental Status: She is oriented to person, place, and time. Urethral Catheter Regular catheter (Active) Number of days: 1 Peripheral Line Lower;Posterior;Right Arm 22 Gauge (Active) Number of days: 0 STUDIES: Encounter Orders Labs and other studies reviewed with pertinent findings noted below: XR CHEST 1 VIEW Narrative: EXAM XR CHEST 1 VIEW - 10/02/2024 8:53 pm HISTORY Shortness of breath TECHNIQUE Single-view chest COMPARISON None. FINDINGS Cardiomediastinal silhouette is normal. No consolidation, mass, pneumothorax, or pleural effusion. Vascular congestion. The underlying bony structures are normal for the patient's age. Impression: IMPRESSION Vascular congestion Recent Results (from the past 24 hours) BLOOD GAS, ARTERIAL Collection Time: 10/04/24 12:09 PM Result Value Ref Range Temperature 37.0 C pH, Arterial 7.215 (L) 7.350 - 7.450 units pCO2, Arterial 79.5 (HH) 35.0 - 45.0 mmHg pO2, Arterial 86.9 75.0 - 100.0 mmHg Base Excess, Arterial 1.6 -2.0 - 2.0 mmol/L HGB 11.4 (L) 12.0 - 15.3 g/dL Oxyhemoglobin, Arterial 93.3 (L) 94.0 - 99.0 % total Hgb Carboxyhemoglobin, Whole Blood 1.3 <=1.5 % total Hgb Methemoglobin, Whole Blood 0.5 <=1.5 % total Hgb Reduced Hemoglobin, Arterial 4.9 0.0 - 5.0 % total Hgb O2 Content, Arterial 15.1 15.0 - 24.0 %vol FiO2 40 % O2 Flow, Arterial Not Provided L/min Bicarbonate, Whole Blood 31.0 23.0 - 31.0 mmol/L GLUCOSE METER, POINT OF CARE Collection Time: 10/04/24 12:17 PM Result Value Ref Range GLUCOSE - POCT 136 (H) 70 - 120 mg/dL BASIC METABOLIC PANEL Collection Time: 10/04/24 1:46 PM Result Value Ref Range BUN 46 (H) 6 - 20 mg/dL CREATININE 1.6 (H) 0.5 - 1.0 mg/dL EGFR 35 (L) >=60 mL/min SODIUM 139 135 - 146 mmol/L POTASSIUM 5.1 3.5 - 5.1 mmol/L CHLORIDE 101 98 - 107 mmol/L CO2 29 22 - 32 mmol/L ANION GAP 9 7 - 15 mmol/L GLUCOSE 131 (H) 70 - 120 mg/dL CALCIUM 8.6 8.4 - 10.2 mg/dL TSH WITH FREE T4 IF INDICATED Collection Time: 10/04/24 1:46 PM Result Value Ref Range TSH 1.69 0.27 - 4.20 uIU/mL POTASSIUM, WHOLE BLOOD Collection Time: 10/04/24 1:46 PM Result Value Ref Range Potassium 5.0 3.5 - 5.1 mmol/L BLOOD GAS, ARTERIAL Collection Time: 10/04/24 3:38 PM Result Value Ref Range Temperature 37.0 C pH, Arterial 7.229 (L) 7.350 - 7.450 units pCO2, Arterial 76.7 (HH) 35.0 - 45.0 mmHg pO2, Arterial 85.7 75.0 - 100.0 mmHg Base Excess, Arterial 2.0 -2.0 - 2.0 mmol/L HGB 11.0 (L) 12.0 - 15.3 g/dL Oxyhemoglobin, Arterial 93.3 (L) 94.0 - 99.0 % total Hgb Carboxyhemoglobin, Whole Blood 1.3 <=1.5 % total Hgb Methemoglobin, Whole Blood 0.4 <=1.5 % total Hgb Reduced Hemoglobin, Arterial 5.0 0.0 - 5.0 % total Hgb O2 Content, Arterial 14.6 (L) 15.0 - 24.0 %vol FiO2 40 % O2 Flow, Arterial Not Provided L/min Bicarbonate, Whole Blood 30.9 23.0 - 31.0 mmol/L GLUCOSE METER, POINT OF CARE Collection Time: 10/04/24 6:21 PM Result Value Ref Range GLUCOSE - POCT 142 (H) 70 - 120 mg/dL GLUCOSE METER, POINT OF CARE Collection Time: 10/04/24 8:38 PM Result Value Ref Range GLUCOSE - POCT 175 (H) 70 - 120 mg/dL BLOOD GAS, ARTERIAL Collection Time: 10/04/24 9:26 PM Result Value Ref Range Temperature 37.0 C pH, Arterial 7.257 (L) 7.350 - 7.450 units pCO2, Arterial 74.9 (HH) 35.0 - 45.0 mmHg pO2, Arterial 67.0 (L) 75.0 - 100.0 mmHg Base Excess, Arterial 3.7 (H) -2.0 - 2.0 mmol/L HGB 11.3 (L) 12.0 - 15.3 g/dL Oxyhemoglobin, Arterial 89.0 (L) 94.0 - 99.0 % total Hgb Carboxyhemoglobin, Whole Blood 1.3 <=1.5 % total Hgb Methemoglobin, Whole Blood 0.4 <=1.5 % total Hgb Reduced Hemoglobin, Arterial 9.3 (H) 0.0 - 5.0 % total Hgb O2 Content, Arterial 14.2 (L) 15.0 - 24.0 %vol FiO2 Not Provided % O2 Flow, Arterial Not Provided L/min Bicarbonate, Whole Blood 32.2 (H) 23.0 - 31.0 mmol/L BASIC METABOLIC PANEL Collection Time: 10/05/24 3:50 AM Result Value Ref Range BUN 45 (H) 6 - 20 mg/dL CREATININE 1.5 (H) 0.5 - 1.0 mg/dL EGFR 38 (L) >=60 mL/min SODIUM 139 135 - 146 mmol/L POTASSIUM 4.9 3.5 - 5.1 mmol/L CHLORIDE 102 98 - 107 mmol/L CO2 29 22 - 32 mmol/L ANION GAP 8 7 - 15 mmol/L GLUCOSE 136 (H) 70 - 120 mg/dL CALCIUM 8.4 8.4 - 10.2 mg/dL CBC Collection Time: 10/05/24 3:50 AM Result Value Ref Range WBC 6.06 4.00 - 10.80 K/uL RBC 3.98 3.85 - 5.15 M/uL HGB 10.5 (L) 12.0 - 15.3 g/dL HCT 36.5 36.0 - 45.2 % MCV 91.7 81.5 - 97.5 fL MCH 26.4 27.0 - 34.0 pg MCHC 28.8 32.0 - 36.0 g/dL RDW 14.6 11.5 - 15.5 % PLT 156 140 - 400 K/uL MPV 9.1 6.6 - 11.1 fL nRBCs 0 <=0 /100 WBCs MAGNESIUM Collection Time: 10/05/24 3:50 AM Result Value Ref Range Magnesium 1.9 1.5 - 2.6 mg/dL BLOOD GAS, VENOUS Collection Time: 10/05/24 3:50 AM Result Value Ref Range Temperature 37.0 C pH, Venous 7.270 (L) 7.320 - 7.430 units pCO2, Venous 72.5 (H) 40.0 - 60.0 mmHg pO2, Venous 52.0 (H) 25.0 - 50.0 mmHg Base Excess, Venous 4.0 (H) -2.0 - 2.0 mmol/L HGB 10.9 (L) 12.0 - 15.3 g/dL Oxyhemoglobin, Venous 80.7 40.0 - 85.0 % total Hgb Carboxyhemoglobin, Whole Blood 1.3 <=1.5 % total Hgb Methemoglobin, Whole Blood 0.4 <=1.5 % total Hgb Reduced Hemoglobin, Venous 17.6 % total Hgb O2 Content, Venous 12.4 7.0 - 18.0 %vol Bicarbonate, Whole Blood 32.2 (H) 23.0 - 31.0 mmol/L PHOSPHORUS Collection Time: 10/05/24 3:50 AM Result Value Ref Range Phosphorus 4.2 2.5 - 4.8 mg/dL BLOOD GAS, ARTERIAL Collection Time: 10/05/24 11:07 AM Result Value Ref Range Temperature 37.0 C pH, Arterial 7.265 (L) 7.350 - 7.450 units pCO2, Arterial 78.0 (HH) 35.0 - 45.0 mmHg pO2, Arterial 59.6 (L) 75.0 - 100.0 mmHg Base Excess, Arterial 5.6 (H) -2.0 - 2.0 mmol/L HGB 10.9 (L) 12.0 - 15.3 g/dL Oxyhemoglobin, Arterial 86.3 (L) 94.0 - 99.0 % total Hgb Carboxyhemoglobin, Whole Blood 1.4 <=1.5 % total Hgb Methemoglobin, Whole Blood 0.4 <=1.5 % total Hgb Reduced Hemoglobin, Arterial 11.9 (H) 0.0 - 5.0 % total Hgb O2 Content, Arterial 13.3 (L) 15.0 - 24.0 %vol FiO2 Not Provided % O2 Flow, Arterial 6 L/min Bicarbonate, Whole Blood 34.2 (H) 23.0 - 31.0 mmol/L Assessment and Plan IMPRESSION : Principal Problem: Heart failure, systolic and diastolic, acute on chronic ([facility]) Active Problems: Restless leg syndrome SLEEP APNEA, UNSPECIFIED Major depressive disorder Dyslipidemia, goal LDL below 100 HTN, goal below 140/90 SOB (shortness of breath) Type 2 diabetes mellitus with diabetic polyneuropathy, with long-term current use of insulin ([facility]) BMI 40.0-44.9, adult ([facility]) COPD, group C, by GOLD 2017 classification ([facility]) Venous stasis ulcers of both lower extremities ([facility]) Hyperkalemia Cellulitis Acute on chronic respiratory failure with hypercapnia ([facility]) Resolved Problems: * No resolved hospital problems. * DIFFERENTIAL AND PLAN: Acute hypercapnic and hypoxic respiratory failure possibly secondary to CHF exacerbation/less likely COPD exacerbation. HFpEF Patient is on a Thompson catheter Hypertension Hyperlipidemia CKD stage IIIB CXR positive for vascular congestion. Euvolemic on exam. BNP pro of 5502 PAOLA Follow up on RVP Continue with the IV Lasix 60 mg daily. Intake/Output Summary (Last 24 hours) at 10/05/2024 1127 Last data filed at 10/05/2024 0600 Gross per 24 hour Intake 10 ml Output 1750 ml Net -1740 ml Holding [employer] torsemide, amlodipine and Coreg. Can titrate up according to patient's blood pressure trend. Continue with BiPAP. Can consider high-flow nasal cannula if patient remains to be noncompliant. Continue with [employer] Zocor continue to monitor CBC, BMP, replace lytes when necessary, goal K>4, Mg>2 continue to monitor I&Os. History of COPD Less likely exacerbation. We will start patient on DuoNebs Continue with albuterol nebs p.r.n. Patient is not wheezing currently. We will hold off on steroids. Continue with IS, flutter therapy and respiratory patient driven protocol. Bilateral lower extremity erythema, tenderness Bilateral lower extremity venous insufficiency Cellulitis/wounds Restless leg syndrome Podiatry following and did not recommend any acute surgical interventions. Wound consult placed Continue with Keflex 500 mg We will avoid opioids due to hypercapnia. Patient placed on 1 mg Dilaudid q.6 p.r.n. for pain. We will DC Dilaudid patient continues to have hypercapnia. Continue with Flexeril as needed. Avoid NSAIDs in light of CKD. Continue to monitor fever, CBC Diabetes mellitus type 2 HbA1c of 8.2 Patient home regimen consists of Lantus 15 units HS, and insulin sliding scale We will start patient on 7 units of Lantus and ISS medium scale Can titrate up as needed based on the blood sugar trend. Continue to monitor blood sugar levels with Accu-Cheks. Anxiety/depression Continuous citalopram, hydroxyzine p.r.n. GERD Continue Prilosec Anemia most likely due to chronic disease Awaiting labs DVT prophylaxis: Heparin PHARMACOLOGIC VTE PROPHYLAXIS: hEParin CODE STATUS: Full Code EXPECTED DISCHARGE DATE: No information available Patient was seen, was examined, and was discussed with Gilmar Ford DO . Cosigned by Gilmar Ford DO at 10/05/2024 8:58 PM EST Associated attestation - Gilmar Ford DO - 10/05/2024 8:58 PM EST I have discussed the patient's management with the Resident Physician and agree with the note. Please refer to the documented findings and plan of care. The patient's service consisted of an evaluation. I have seen and evaluated the patient on the date of service listed above. Principal Problem: Heart failure, systolic and diastolic, acute on chronic (HCC) (POA: Yes) Active Problems: Restless leg syndrome (POA: Yes) SLEEP APNEA, UNSPECIFIED (POA: Yes) Major depressive disorder (POA: Yes) Overview: ICD-10 update of inactive term Dyslipidemia, goal LDL below 100 (POA: Yes) Overview: Per Lipid Taxonomy. HTN, goal below 140/90 (POA: Yes) SOB (shortness of breath) (POA: Yes) Type 2 diabetes mellitus with diabetic polyneuropathy, with long-term current use of insulin (HCC) (POA: Yes) Obesity hypoventilation syndrome (HCC) (POA: Yes) BMI 40.0-44.9, adult (HCC) (POA: Yes) COPD, group C, by GOLD 2017 classification (HCC) (POA: Yes) Overview: Per COPD GOLD Classification Venous stasis ulcers of both lower extremities (HCC) (POA: Yes) Hyperkalemia (POA: Unknown) Cellulitis (POA: Unknown) Acute on chronic respiratory failure with hypercapnia (HCC) (POA: Unknown) POA = Present On Admission Combined respiratory failure 2/2 HFpEF exacerbation -continue NIVPPV as tolerated for most recent ABG 7.257/74.9. Flowsheets indicate intermittent use overnight. Encourage continued use -alternatively may need to increase iPAP with slow improvement in pH -continue aggressive diuresis and monitor output at goal of -2L -Remainder of ongoing care as documented below. I personally provided 36 minutes of critical care: diagnostic services - respiratory failure and therapeutic services - frequent noninvasive ventilator adjustments, frequent evaluation and titration of therapies for this patient on the date referenced above and exclusive of time spent performing procedures or time spent by another provider or resident. * Ernie Guajardo DPM - 10/04/2024 7:55 PM EST Images from the original note were not included. PROGRESS NOTE - PODIATRY [facility]-[address] [id number] Name: Meera Mcgraw Location: [facility] IP-03/A Date: 10/04/2024 Time: 7:55 PM SUBJECTIVE: Meera Mcgraw is seen resting comfortably at bedside. Dressing appears to be clean dry and intact. Appears to be in no acute distress. Patient relates moderate lower extremity pain. Denies F/C/N/V/CP/SOB/calf pain. Afebrile overnight. WBC this morning of 6.64 . OBJECTIVE: VITAL SIGNS: BP: 141 mmHg/66 mmHg (10/04/24 1700) Pulse: 70 (10/04/24 1800) Resp: 18 (10/04/24 1800) Temp: 37.61 C (10/04/24 170) Temp Summary: Temp Min: 36.3 °C (97.4 °F) Max: 37.6 °C (99.7 °F) SpO2: 97 % (10/04/24 1800) O2 flow rate: 6 L/MIN (10/04/24 0800) Supplemental O2 Delivery: Nasal Cannula (10/04/241999) ROS: A complete review of systems was negative unless otherwise stated in the HPI. VITAL SIGNS LAST 24 HRS: Systolic BP: Most Recent Systolic BP Av.4 mmHg Min: 91 mmHg Max: 141 mmHg Temperature: Most Recent Temperature Av.9 C Min: 36.33 C Max: 37.61 C Pulse: Pulse Av.4 Min: 62 Max: 72 Respirations: Resp Av.5 Min: 16 Max: 18 SpO2: SpO2 Av.4 % Min: 92 % Max: 100 % LOWER EXTREMITY PHYSICAL EXAM: Edema and erythema noted to bilateral legs. Improvement in edema noted to BLLE. Erythema noted to begin below the tibial tuberosity. BL legs noted to be tender on palpation. Fissures noted to bilateral lower extremities which are partial thickness in nature. Partial thickness ulcer noted to the proximal aspect of the right leg. No bogginess, crepitus, fluctuance or purulence noted. No discernable openings that probe to bone noted. LABS/MICRODATA: Labs reviewed as indicated below: BUN, Creatinine, GFR Estimated, Sodium, Potassium, Chloride, Carbon Dioxide, Glucose, Calcium (see below for most recent value): Lab Results Component Value Date/Time BUN 46 (H) 10/04/2024 01:46 PM BUN 46 (H) 09/15/2023 04:26 AM BUN 17 12/10/2019 10:11 AM CREAT 1.6 (H) 10/04/2024 01:46 PM CREAT 1.9 (H) 09/15/2023 04:26 AM CREAT 0.8 12/10/2019 10:11 AM GFRESTIMATED >60.0 12/10/2019 10:11 AM NA 139 10/04/2024 01:46 PM NA 136 12/10/2019 10:11 AM POTASSIUM 5.1 10/04/2024 01:46 PM POTASSIUM 4.9 09/15/2023 04:26 AM POTASSIUM 3.8 12/10/2019 10:11 AM CL 101 10/04/2024 01:46 PM CL 96 (L) 12/10/2019 10:11 AM CO2 29 10/04/2024 01:46 PM CO2 31 09/15/2023 04:26 AM CO2 30 12/10/2019 10:11 AM CA 8.6 10/04/2024 01:46 PM CA 8.9 12/10/2019 10:11 AM COAGS: PT, INR (see below for most recent values): Lab Results Component Value Date/Time INR 1.2 05/01/2024 03:19 AM INR 1.2 05/04/2023 09:26 PM INR 1.2 03/07/2023 06:10 AM INR 1.04 12/27/2015 07:48 AM BLOOD COUNT: WBC, Hgb, Platelets (see below for most recent value): Lab Results Component Value Date/Time WBC 6.64 10/04/2024 07:55 AM WBC 6.21 05/11/2018 01:48 AM HGB 11.3 (L) 10/04/2024 07:55 AM HGB 14.7 05/11/2018 01:48 AM HGB 13.0 08/10/1996 01:10 AM PLT 172 10/04/2024 07:55 AM PLT 182 05/11/2018 01:48 AM IMAGING/STUDIES: IMPRESSION and PLAN: Meera Mcgraw is a 69 year old female who presents with superficial ulcer to the RLE, bilateral lower extremity cellulitis and chronic venous stasis changes to bilateral lower extremities. Patientwas seen and evaluated with all questions and concerns addressed. Superficial fissures noted to bilateral ankles with a partial thickness ulcer to the anterior right leg. Improvement in edema noted to bilateral lower extremities. Minimal improvement in erythema noted. Agree with antibiotics for management of cellulitis. Recommend xeroform, ABD, Kerlix and CHRISTOPHER bandage dressings to be applied to bilateral lower extremities daily. Nursing communications have been placed for daily dressing changes.Additionally, recommend offloading of bilateral lower extremities with offloading boots. [facility] Pt seen and evaluated with all questions and concerns addressed. Pt case was discussed with Dr. Guajardo WB status: WBAT Abx: PO Keflex per medicine team Labs and imaging reviewed as above. Dressing(s) applied to BLLE consisting of xeroform, ABDs, kerlix, and CHRISTOPHER wrap No need for urgent or emergent podiatric surgical intervention at this time. Podiatry to sign off at this time. Please feel free to re-consult should the need arise. Christopher Jenkins DPM (PGY-2) This note was completed using the dictation program Fluency Direct. As such, there may be misspellings, word substitutions, or other variations that should not change the essence of the clinical content of this encounter note. Necessary attempts were made to correct dictation errors. If there is need for further clarification, please direct questions to the author. Lengthy reviewed with Pt for diagnosis and diffrerntial as well shelter treatment and prevention.Pt to follow with wound care center on discharge . Pending current results Attending Attestation: I have discussed the patient's management with the medical trainee and agree with the note. Please refer to the documented findings and plan of care. The patient's bedside service on 10/04/24 (this darline late entry) consisted of an evaluation and a diagnostic. I was present and confirmed the findingsof the history and exam. I have reviewed the interpretation of the diagnostic study. I spent a total of Greater than 55 mins (exact time 65 mins) on the date of service in preparation,delivery, and documentation of the care provided to Meera Mcgraw excluding any time spent in the performance of separately billed services or time spent by another provider/QHP. * Marion Carvajal CRNP - 10/04/2024 8:09 AM EST Images from the original note were not included. [facility] OBS-207/A Seen and examined at bedside. Sleeping-easily awaken -on 4L NC- switched to acute bipap by respiratory therapy. BLE wounds wrapped. Pain 3/10. Remains afebrile. ROS limited due to above. Objective Physical Exam Most Recent Vital Signs: BP: 114 mmHg/68 mmHg (10/04/24305) Pulse: 62 (10/04/24305) Resp: 16 (10/04/24305) Temp: 36.5 C (10/04/24305) Temp Summary: Temp Min: 35.6 °C (96 °F) Max: 36.9 °C (98.5 °F) SpO2: 97 % (10/04/24305) O2 flow rate: 6 L/MIN (10/03/241955) Supplemental O2 Delivery: Non-Invasive CPAP/BiPAP (10/04/24305) Constitutional: acutely ill, Body mass index is 44.27 kg/m². HEENT: normocephalic, atraumatic; no masses, tenderness, or adenopathy Eyes: PERRL, sclera and conjunctiva normal CV: normal rate and rhythm, S1 S2, no murmur, gallops or rub or extremity edema Chest: normal respiratory effort, lungs clear to auscultation, breath sounds normal Abdomen: soft, bowel sounds normal, no masses, tenderness or organomegaly Musculoskeletal: AROM of all extremities Skin: warm, dry, scattered rash trunk, nonblanhcing erythema resolving BLE Neuro: lethargic, speech clear, sensory normal Psych: calm Peripheral Line Left Arm 20 Gauge (Active) Number of days: 1 STUDIES: Encounter Orders Labs and other studies reviewed with pertinent findings noted below: Results for orders placed or performed during the hospital encounter of 10/02/24 BNP, NT-PRO Result Value Ref Range BNP, NT-Pro 5,502 (H) <300 pg/mL COMPREHENSIVE METABOLIC PANEL Result Value Ref Range BUN 35 (H) 6 - 20 mg/dL CREATININE 1.4 (H) 0.5 - 1.0 mg/dL EGFR 43 (L) >=60 mL/min SODIUM 137 135 - 146 mmol/L POTASSIUM 4.8 3.5 - 5.1 mmol/L CHLORIDE 102 98 - 107 mmol/L CO2 27 22 - 32 mmol/L ANION GAP 8 7 - 15 mmol/L GLUCOSE 259 (H) 70 - 120 mg/dL Albumin 3.5 (L) 3.8 - 5.0 g/dL AST 11 10 - 35 U/L Alkaline Phosphatase 91 35 - 130 U/L Bilirubin, Total 0.3 <=1.2 mg/dL CALCIUM 8.6 8.4 - 10.2 mg/dL Protein 7.7 6.0 - 8.3 g/dL ALT 5 (L) 10 - 35 U/L TROPONIN T, HIGH SENSITIVITY Result Value Ref Range Troponin T, High Sensitivity 77 (H) <=14 ng/L LIPASE Result Value Ref Range Lipase 38 13 - 60 U/L URINALYSIS, REFLEX TO CULTURE (CUP ONLY) Result Value Ref Range Urinalysis, Reflex to Culture Specimen Specimen collected and received URINALYSIS, REFLEX TO CULTURE Result Value Ref Range Color, Urine Light Yellow Colorless, Light Yellow, Yellow, Dark Yellow Clarity, Urine Slightly Cloudy (A) Clear Glucose, Urine 250 (A) Negative mg/dL Bilirubin, Urine Negative Negative Ketone, Urine Negative Negative mg/dL Specific [place], Urine 1.012 1.003 - 1.030 Blood, Urine Negative Negative pH, Urine 5.5 5.0 - 7.5 Units Protein, Urine Trace (A) Negative mg/dL Urobilinogen, Urine Normal Normal mg/dL Nitrite, Urine Negative Negative Esterase, Urine Large (A) Negative RBC, Urine 6-9 (A) 0 - 2 /HPF WBC, Urine 30-49 (A) 0 - 2 /HPF Bacteria, Urine 0-25 0 - 25 /HPF Hyaline, Cast, Urine 5-9 (A) None /LPF Culture, Urine CBC Result Value Ref Range WBC 10.47 4.00 - 10.80 K/uL RBC 4.45 3.85 - 5.15 M/uL HGB 11.9 (L) 12.0 - 15.3 g/dL HCT 40.0 36.0 - 45.2 % MCV 89.9 81.5 - 97.5 fL MCH 26.7 27.0 - 34.0 pg MCHC 29.8 32.0 - 36.0 g/dL RDW 14.6 11.5 - 15.5 % PLT 210 140 - 400 K/uL MPV 8.9 6.6 - 11.1 fL nRBCs 0 <=0 /100 WBCs DIFFERENTIAL, AUTOMATED Result Value Ref Range WBC 10.47 4.00 - 10.80 K/uL Neutrophils % 85.7 (H) 40.0 - 75.0 % Lymphocytes % 5.8 (L) 18.0 - 42.0 % Monocytes % 5.6 1.0 - 11.0 % Eosinophils % 1.5 0.0 - 6.0 % Basophils % 0.6 0.0 - 2.0 % Immature Granulocytes % 0.8 0.0 - 2.0 % Absolute Neutrophils 8.97 (H) 1.80 - 7.70 K/uL Absolute Lymphocytes 0.61 (L) 1.00 - 4.80 K/ul Absolute Monocytes 0.59 0.00 - 1.10 K/uL Absolute Eosinophils 0.16 0.00 - 0.70 K/uL Absolute Basophils 0.06 0.00 - 0.20 K/uL Absolute Immature Granulocytes 0.08 0.00 - 0.20 K/uL TROPONIN T, HIGH SENSITIVITY Result Value Ref Range Troponin T, High Sensitivity 72 (H) <=14 ng/L MRSA SCREEN, PCR Result Value Ref Range MRSA PCR Result Negative Negative CBC Result Value Ref Range WBC 11.44 (H) 4.00 - 10.80 K/uL RBC 4.39 3.85 - 5.15 M/uL HGB 11.8 (L) 12.0 - 15.3 g/dL HCT 40.4 36.0 - 45.2 % MCV 92.0 81.5 - 97.5 fL MCH 26.9 27.0 - 34.0 pg MCHC 29.2 32.0 - 36.0 g/dL RDW 14.5 11.5 - 15.5 % PLT 214 140 - 400 K/uL MPV 8.9 6.6 - 11.1 fL nRBCs 0 <=0 /100 WBCs BASIC METABOLIC PANEL Result Value Ref Range BUN 38 (H) 6 - 20 mg/dL CREATININE 1.5 (H) 0.5 - 1.0 mg/dL EGFR 39 (L) >=60 mL/min SODIUM 137 135 - 146 mmol/L POTASSIUM 5.2 (H) 3.5 - 5.1 mmol/L CHLORIDE 101 98 - 107 mmol/L CO2 27 22 - 32 mmol/L ANION GAP 9 7 - 15 mmol/L GLUCOSE 237 (H) 70 - 120 mg/dL CALCIUM 8.5 8.4 - 10.2 mg/dL MAGNESIUM Result Value Ref Range Magnesium 1.9 1.5 - 2.6 mg/dL PHOSPHORUS Result Value Ref Range Phosphorus 4.6 2.5 - 4.8 mg/dL HEMOGLOBIN A1C Result Value Ref Range Hemoglobin A1C 8.2 (H) 4.0 - 5.6 % Estimated Average Glucose 189 (H) <126 mg/dL GLUCOSE METER, POINT OF CARE Result Value Ref Range GLUCOSE - POCT 229 (H) 70 - 120 mg/dL GLUCOSE METER, POINT OF CARE Result Value Ref Range GLUCOSE - POCT 149 (H) 70 - 120 mg/dL GLUCOSE METER, POINT OF CARE Result Value Ref Range GLUCOSE - POCT 197 (H) 70 - 120 mg/dL GLUCOSE METER, POINT OF CARE Result Value Ref Range GLUCOSE - POCT 163 (H) 70 - 120 mg/dL GLUCOSE METER, POINT OF CARE Result Value Ref Range GLUCOSE - POCT 151 (H) 70 - 120 mg/dL *Note: Due to a large number of results and/or encounters for the requested time period, some results have not been displayed. A complete set of results can be found in Results Review. Imaging: XR CHEST 1 VIEW Result Date: 10/02/2024 IMPRESSION Vascular congestion Cardiac: EKG 10/02/24: TTE 04/2024: Interpretation Summary The examination is limited quality but adequate for evaluation of the referral indication. The qualitative LV ejection fraction is 55-59% (normal). The left ventricular wall motion is not assessed. The left ventricular endocardium is inadequately assessed inspite of the use of intravenous contrast. The right ventricular cavity is mildly dilated. The right ventricular systolic function is mildly reduced . The left atrium is mildly enlarged. The right atrium is mildly enlarged. The left ventricular diastolic function is severely abnormal (grade III). Mild tricuspid regurgitation is present. Dilated IVC with reduced collapsability with sniff indicates an elevated right atrial pressure of 15mmHg. Pulmonary hypertension is present. The estimated pulmonary artery systolic pressure is 66mm H Assessment and Plan IMPRESSION : Principal Problem: Heart failure, systolic and diastolic, acute on chronic ([facility]) Active Problems: Restless leg syndrome SLEEP APNEA, UNSPECIFIED Major depressive disorder Dyslipidemia, goal LDL below 100 HTN, goal below 140/90 SOB (shortness of breath) Type 2 diabetes mellitus with diabetic polyneuropathy, with long-term current use of insulin ([facility]) BMI 40.0-44.9, adult ([facility]) COPD, group C, by GOLD 2017 classification ([facility]) Venous stasis ulcers of both lower extremities ([facility]) Resolved Problems: * No resolved hospital problems. * DIFFERENTIAL AND PLAN: Acute on chronic diastolic CHF Elevated troponin Hyperkalemia CKD IIIb HTN, controlled - continue IV lasix 60mg bid - continue amlodipine, carvedilol - daily weight , I&O - Goal K>4, Mg>2 - Cr 1.7-at baseline, K 5.4, monitor - troponin 77-72-flat, bnp 5502- elevated from 04/2024 - EKG viewed - repeat limited TTE pending - continue telemetry Acute hypoxic respiratory failure 2/2 above COPD, not in exacerbation PAOLA - acute bipap- wean to 2l daytime oxygen for saturation >92%, and nocturnal cpap - continue flonase, albuterol prn - VBG ph 7.17, PCO2 91.4-repeat abg 12n - Pulmonary consult B/L LE Wounds/Cellulitis Pain 2/2 wounds Restless leg syndrome - continue keflex - continue gabapentin, change flexeril to as needed - d/c dilaudid, oxycodone - LWC -Wound Care consult - wbc wnl, MRSA pending - Podiatry following- no acute surgical intervention Rash possible allergic/bedbugs - continue permethrin 5% cream - contact isolation DM Type II - hba1c 8.2, accucheck, lantus, novolog subq Dyslipidemia - continue zocor Anxiety/ Depression Continue escitalopram, hydroxyzine prn GERD - continue prilosec Obesity - Body mass index is 44.27 kg/m². - weight loss encouragedMonitor daily weights PHARMACOLOGIC VTE PROPHYLAXIS: hEParin CODE STATUS: Full Code EXPECTED DISCHARGE DATE: No information available Cosigned by Dilan Hernandez MD at 10/04/2024 4:45 PM EST Associated attestation - Dilan Hernandez MD - 10/04/2024 4:45 PM EST I have reviewed the advanced practitioner's documentation on the date of service referenced in note, and I agree with, and take responsibility for the plan of care. I spent a total of 22 minutes coordinating, documenting, and providing care for this patient excluding time spent in the performance of separately billed services or time spent by another provider/QHP. Patient is seen and examined at bedside this, patient is sleepy but arousable to verbal stimuli, saturating well on 5 L nasal cannula. Denies any shortness off breath, chest pain, abdominal pain, nausea, vomiting. Reports ongoing bilateral leg pain. Both legs wrapped in dressing. Acute on chronic diastolic CHF exacerbation, continue Lasix 60 mg twice daily, monitor I's and O's,monitor daily weight, echo pending Acute on chronic hypoxic and hypercapnic respiratory failure likely secondary to CHF exacerbation versus opioid use versus component of OHS COPD, no exacerbation, no wheezing on exam Uses 2 L nasal cannula at baseline ABG was 7.21/79.5/86, started on BiPAP this morning, discussed with Critical Care, agreeable for PCU at this point, Pulmonology consulted, will repeat ABG in the afternoon, Bilateral lower extremity wound, Podiatry consulted, recommended Keflex Urine culture on 10/03 growing corynebacterium species, patient is asymptomatic, discussed with on-call ID physician, recommended to hold antibiotics. === ADD Repeat ABG 7.22/76.7/85, discussed with ICU, mentation ok, continue BIPAP. Lantus decreased to 7 U as patient will be NPO while on BIPAP, Another dose of lasix 60 mg IV, Placed thompson order for accurate I & O. Patient to transfer to PCU. * Usha Harden MD - 10/03/2024 1:37 PM EST Images from the original note were not included. [facility] INTERVAL HISTORY: Admitted overnight with worsening wound and SOB No acute overnight events. This morning patient was complaining of cramping pain in her lower extremity and was asking for pain medication Endorses improvement in shortness of breaths Denies any fever/chills, nausea/vomiting. Objective Physical Exam Most Recent Vital Signs: BP: 114 mmHg/59 mmHg (10/03/24 1217) Pulse: 59 (10/03/24 1217) Resp: 16 (10/03/24 0200) Temp: 36.89 C (10/02/24 2100) Temp Summary: Temp Min: 36.2 °C (97.2 °F) Max: 36.9 °C (98.4 °F) SpO2: 90 % (10/03/24 121) O2 flow rate: 6 L/MIN (10/03/24 121) Supplemental O2 Delivery: Nasal Cannula (10/03/241216) Constitutional: no acute distress HEENT: normal: normocephalic, atraumatic; no masses, tenderness, or adenopathy CV: normal rate and rhythm, no murmur, gallops or rub Chest: normal respiratory effort Abdomen: soft, no tenderness Skin: warm, dry, intact: Neuro: alert, normal mental status exam Peripheral Line Anterior;Right Hand (Active) Number of days: 0 STUDIES: Encounter Orders Labs and other studies reviewed with pertinent findings noted below: XR CHEST 1 VIEW Final Result EXAM XR CHEST 1 VIEW - 10/02/2024 8:53 pm HISTORY Shortness of breath TECHNIQUE Single-view chest COMPARISON None. FINDINGS Cardiomediastinal silhouette is normal. No consolidation, mass, pneumothorax, or pleural effusion. Vascular congestion. The underlying bony structures are normal for the patient's age. IMPRESSION IMPRESSION Vascular congestion Assessment and Plan IMPRESSION : Principal Problem: Heart failure, systolic and diastolic, acute on chronic ([facility]) Active Problems: Restless leg syndrome SLEEP APNEA, UNSPECIFIED Major depressive disorder Dyslipidemia, goal LDL below 100 HTN, goal below 140/90 SOB (shortness of breath) Type 2 diabetes mellitus with diabetic polyneuropathy, with long-term current use of insulin ([facility]) BMI 40.0-44.9, adult ([facility]) COPD, group C, by GOLD 2017 classification ([facility]) Venous stasis ulcers of both lower extremities ([facility]) Resolved Problems: * No resolved hospital problems. * DIFFERENTIAL AND PLAN: 69-year-old with a PMH significant for but not limited to COPD, CHF, DM, PAOLA, RLS anxiety chronic B/L lower extremity venous stasis wounds who presented with worsening of wounds, increased shortness of breath, rash on right hand, abdomen and back. Patient gained 3 lb in 1 week. Patient uses a walker to walk and has shortness of breath with daily activities which gets better with the rest. Pt has increased swelling and edema lower extremities B/L with wounds and has a new rash developed in the past 2 days which is concerning for scabies, Acute on chronic diastolic HF- NYHA III Echo on 05/01/2024 showed LVEF 55% and left ventricular diastolic function is severely abnormal (grade III) HTN HLD Obesity Currently satting well at 2 L of oxygen (uses 2 L of oxygen at home as needed) Repeat echo Heart failure education consult Furosemide 60 mg ordered S/p Furosemide 20 mg at the ED Continue [employer] amlodipine, carvedilol, simvastatin, EKG WNL Monitor daily weights Monitor I's and O's Monitor vitals and saturation, currently stable Monitor BMP daily Replace lytes as needed Goal K>4, Mg>2 B/L LE Wounds Restless leg syndrome Wound Care consult Started Keflex Continue to monitor CBC for WBC trends, currently no leukocytosis Continue to monitor vitals, currently afebrile and hemodynamically stable Podiatry consult Dilaudid 1 time dose given for pain MRSA screen Continue [employer] gabapentin 200 mg for RLS and pain Rash possible ddx: allergic reaction to cats/bedbugs Initiated contact isolation Permethrin 5% cream Continue to monitor Diabetes mellitus Started insulin SS and Lantus Continue monitor blood sugar levels Blood glucose goal 140-180 HGB A1c PAOLA Continue CPAP HS COPD Continue [employer] Flonase, Proventil p.r.n. Anxiety Depression Continue [employer] escitalopram, hydroxyzine p.r.n. GERD Continue [employer] Prilosec PHARMACOLOGIC VTE PROPHYLAXIS: hEParin CODE STATUS: Full Code EXPECTED DISCHARGE DATE: No information available I spent a total of 55 minutes coordinating, documenting, and providing care for this patient excluding time spent in the performance of separately billed services or time spent by another provider/QHP. documented in this encounter H&P Notes * Raffi Diana MD - 10/02/2024 10:45 PM EST Images from the original note were not included. [facility] Tx[facility]/A PRESENTING PROBLEM: Worsening wounds, increasing shortness of breath, rash HPI: This is a 69-year-old with a PMH significant for but not limited to COPD, CHF, DM, chronic B/Llower extremity venous stasis wounds who presented with worsening of wounds, increased shortness ofbreath, rash on right hand, abdomen and back. The patient has been getting Wound Care with the home health nurse thrice a week where the home health nurse noticed increasing drainage from the wounds and increased swelling in the past 3 weeks. Was associated with increasing pain. Patient also has increasing shortness of breath. Patient uses 2 L of O2 at home as needed and CPAP during nights. Recently she noted that the saturation went low to 85% and was increased to 92% with 2 L. patient also gained 3 lb in 1 week. Patient uses a walker to walk and has shortness of breath with daily activities which gets better with the rest. Denies PND, recent acute abdominal distention, chest pain, palpitation. Patient also has been having a rash on the right hand, abdomen, back which started 2 days ago. Patient has been babysitting 3 cats for the past 2 weeks. , son, grandchildren who live with her does not have similar symptoms. Associated with the change. Denies usage of new products, clothes. ED course Troponin elevated currently trending down from 77-->72 (baseline ranges at 40s 50s and 60s, recently 100) BNP normally elevated currently at 5502 from 3456 previously Creatinine elevated at baseline 1.4 No leukocytosis but ANC elevated 8.97 Subjective Patient's past history, medications, and allergies were reviewed. Objective Physical Exam Most Recent Vital Signs: BP: 148 mmHg/71 mmHg (10/02/242099) Pulse: 65 (10/02/242099) Resp: 18 (10/02/242099) Temp: 36.89 C (10/02/242099) Temp Summary: Temp Min: 36.2 °C (97.2 °F) Max: 36.9 °C (98.4 °F) SpO2: 100 % (10/02/242299) O2 flow rate: 2 L/MIN (10/02/242299) Supplemental O2 Delivery: Nasal Cannula (10/02/242299) Constitutional: no acute distress HEENT: normal: normocephalic, atraumatic CV: normal rate and rhythm, systolic murmur (+) Chest: normal respiratory effort, coarse breath sounds at lung base most pronounced on the left side Abdomen: normal: soft, bowel sounds normal, distended Extremities: no clubbing, cyanosis, foul-smelling, edematous, red (covered in bandage in intense pain so could not examine) Skin: warm, dry, intact: Neuro: alert, oriented to person, place, and time Psych: normal mood and affect STUDIES: Encounter Orders Labs and other studies reviewed with pertinent findings noted below: Laboratory Values: reviewed. -- Brief labs below include the 7 most recent results over the past week. Blood Gas: No results in the last 7 days - inpatent use only Chemistry Panel: Lab results within last 7 days (see chart for full results) Units 10/02/24 194 SODIUM mmol/L 137 POTASSIUM mmol/L 4.8 CHLORIDE mmol/L 102 CO2 mmol/L 27 EGFR mL/min 43* BUN mg/dL 35* CREATININE mg/dL 1.4* GLUCOSE mg/dL 259* CALCIUM mg/dL 8.6 ANION GAP mmol/L 8 Complete Blood Count: Lab results within last 7 days (see chart for full results) Units 10/02/24 194 WBC K/uL 10.47 HGB g/dL 11.9* HCT % 40.0 PLT K/uL 210 MCV fL 89.9 Cardiac Studies: Lab results within last 7 days (see chart for full results) Units 10/02/245 10/02/241948 Troponin T, High Sensitivity ng/L 72* 77* BNP, NT-Pro pg/mL -- 5,502* Coagulation Studies: No results in the last 7 days - inpatent use only Liver Function Panel: Lab results within last 7 days (see chart for full results) Units 10/02/24 194 Albumin g/dL 3.5* Protein g/dL 7.7 Bilirubin, Total mg/dL 0.3 AST U/L 11 ALT U/L 5* Alkaline Phosphatase U/L 91 Infectious Studies: No results in the last 7 days - inpatent use only Cultures: reviewed. No results in the last 7 days - inpatent use only Recent Cultures (2 Weeks) No lab values to display. Radiographic Studies: reviewed. XR CHEST 1 VIEW Result Date: 10/02/2024 IMPRESSION Vascular congestion Assessment and Plan IMPRESSION: Principal Problem: Heart failure, systolic and diastolic, acute on chronic (HCC) Active Problems: Restless leg syndrome SLEEP APNEA, UNSPECIFIED Major depressive disorder Dyslipidemia, goal LDL below 100 HTN, goal below 140/90 SOB (shortness of breath) Type 2 diabetes mellitus with diabetic polyneuropathy, with long-term current use of insulin ([facility]) BMI 40.0-44.9, adult ([facility]) COPD, group C, by GOLD 2017 classification ([facility]) Venous stasis ulcers of both lower extremities ([facility]) Resolved Problems: * No resolved hospital problems. * DIFFERENTIAL AND PLAN: This is a 69-year-old with a PMH significant for but not limited to COPD, CHF, DM, PAOLA, RLS anxietychronic B/L lower extremity venous stasis wounds who presented with worsening of wounds, increased shortness of breath, rash on right hand, abdomen and back. Patient gained 3 lb in 1 week. Patient uses a walker to walk and has shortness of breath with daily activities which gets better with the rest. Pt has increased swelling and edema lower extremities B/L with wounds and has a new rash developed in the past 2 days. Acute on chronic diastolic HF- NYHA III Echo on 05/01/2024 showed LVEF 55% and left ventricular diastolic function is severely abnormal (grade III) HTN HLD Obesity Currently satting well at 2 L of oxygen (uses 2 L of oxygen at home as needed) Repeat echo Heart failure education consult Furosemide 60 mg ordered S/p Furosemide 20 mg at the ED Continue [employer] amlodipine, carvedilol, simvastatin, EKG WNL Monitor daily weights Monitor I's and O's Monitor vitals and saturation, currently stable Monitor BMP daily Replace lytes as needed Goal K>4, Mg>2 B/L LE Wounds Restless leg syndrome Wound Care consult Started Keflex Continue to monitor CBC for WBC trends, currently no leukocytosis Continue to monitor vitals, currently afebrile and hemodynamically stable Podiatry consult Dilaudid 1 time dose given for pain MRSA screen Continue [employer] gabapentin 200 mg for RLS and pain Rash possible ddx: allergic reaction to cats/flea bite/cat scratch disease vs bed bugs Initiated contact isolation Permethrin 5% cream Continue to monitor Diabetes mellitus Started insulin SS and Lantus Continue monitor blood sugar levels Blood glucose goal 140-180 HGB A1c PAOLA Continue CPAP HS COPD Continue [employer] Flonase, Proventil p.r.n. Anxiety Depression Continue [employer] escitalopram, hydroxyzine p.r.n. GERD Continue [employer] Prilosec PHARMACOLOGIC VTE PROPHYLAXIS:hEParin CODE STATUS: Full Code EXPECTED DISCHARGE DATE: No information available This patient was seen, examined, and discussed with Alice Segundo MD at the time of admission. Cosigned by Alice Segundo MD at 10/03/2024 7:51 PM EST Associated attestation - Alice Segundo MD - 10/03/2024 7:51 PM EST I saw and evaluated the patient 10/02/24. I have reviewed the resident/fellow physician note and agree. Patient is a 69-year-old female with past medical history of CHF type 2 diabetes and chronic bilateral lower extremity venous stasis coming in due to her home nurse saying that she has cellulitis in bilateral lower extremities. There is fluid accumulation there as well as purulent discharge. We started her on antibiotics. Also of note she does have scratches and pruritus on her skin. She did recently adopt a bunch of cats. Suspect that there could be out of bedbugs or fleas. We will start her on permethrin cream and also initiate isolation contact documented in this encounter Procedure Notes * Joe Ramirez MD - 10/02/2024 6:25 PM ESTAssociated Order(s): EKG REASON FOR STUDY: SOB (shortness of breath) CONCLUSIONS: Normal sinus rhythm Low voltage QRS, consider pulmonary disease, pericardial effusion, or normal variant Borderline ECG When compared with ECG of 30-Apr-2024 18:40, No significant change Ventricular Rate: 64 Atrial Rate: 64 [place] Interval: 160 QRS Duration: 80 QT/QTc: 430/443 ms P-R-T [place]: 77 : 34 : 10 degrees documented in this encounter Consult Notes * Dina Duran MD - 10/10/2024 9:09 AM ESTAssociated Order(s): DERMATOLOGY CONSULT IP Specialist Response Dermatology Date of Response: 10/10/2024 Assessment: Photo consult only Images reviewed Patient with multiple pink papules and linear excoriations on trunk and extremities The differential includes pruritus with secondary excoriation due to CKD, diabetes, medications vs scabies vs irritant contact dermatitis/allergic contact dermatitis vs prurigo nodularis Treated with permethrin cream 09/30 Recommendations: -If high suspicion for scabies, can treat with a second course of permethrin cream - Apply to skin from neck down to toes including nooks and crannies, leave on 8-14 hours then wash off -It should be noted that post-scabetic pruritus persists for 4-6 weeks after the successful treatment of scabies -Gentle skin care recs (below) -Would also recommend a 454 gram jar of triamcinolone ointment 0.1% to keep at patient's bedside and have her apply this up to twice daily as needed for itch -Please refer to derm at discharge for outpatient f/up Gentle Skin Care Recs -We recommended a mild soap (ex. Dove, Ivory, Oil of Olay) and to avoid anti- bacterial soaps which may be too irritating -The patient should also use fragrance-free, color-free laundry detergents (ex. All Free and Clear)and avoid dryer sheets which can be irritating -The patient’s skin should be well-moisturized, using Vanicream, Eucerin, Cetaphil, Vaseline multiple times a day as needed -Recommend avoidance of scratching skin and keeping nails trimmed short Specialist Signature: Dina Duran MD * Tere Madrigal RN - 10/07/2024 9:11 AM ESTAssociated Order(s): WOUND/OSTOMY CONSULT IP; WOUND/OSTOMY CONSULT IP Wound care not needed at this time. Please follow Podiatry recommendations for BLE - Recommend local wound care consisting of xeroform, ABD padding, Kerlix and CHRISTOPHER bandage while in house. May resume previous wound care regimen upon discharge. Follow with [facility] upon discharge. * Rosalino Alex PT - 10/06/2024 9:25 AM EST GENERAL EVALUATION - Physical Therapy [address] [place] [id number] Name: Meera Mcgraw Location: [facility]- Date: 10/06/2024 Time: 925 Meera Mcgraw is a/an 69 year old female. Patient Status: Inpatient Insurance: Payor: MEDICARE Plan: MEDICARE A AND B Product Type: *No Product type* Payor: [facility] ([facility]) Plan: [employer] Product Type: *No Product type* Patient Seen: at bedside, nursing Katja cleared patient for therapy Patient Identified By: Name, ID Band and Date Diagnosis: SOB; heart failure (10/06/24924) Status of treatment: Evaluation completed (10/06/24924) Orders: PT evaluation and treatment (10/06/24924) Weight Bearing Status: Weight bearing as tolerated (10/06/24924) Precautions: Falls;Safety (10/06/24924) Total Treatment Time--free text: 24 (10/06/24924) Past Medical History: Past Medical History: Diagnosis Date Acute appendicitis 01/29/2017 Acute respiratory failure with hypoxia and hypercapnia (HCC) 06/19/2022 Chronic venous hypertension with ulcer (HCC) 05/05/2022 Controlled substance agreement signed 01/28/2017 COPD exacerbation (HCC) 12/26/2015 COPD, severity to be determined (HCC) 12/26/2015 Diabetic retinopathy of right eye associated with type 2 diabetes mellitus ([facility]) 06/08/2021 Dyslipidemia 12/26/2015 Dyslipidemia, goal to be determined Gastroesophageal reflux disease without esophagitis 05/04/2023 Heart failure, diastolic, with acute decompensation ([facility]) 06/19/2022 Heart failure, diastolic, with acute decompensation ([facility]) 2023-10-28 Adding I50.33-Heart failure, diastolic, with acute decompensation ([facility]) Dx to History HTN, goal below 140/90 11/07/2014 HTN, goal to be determined Hypoxia 12/26/2015 Influenza A 12/29/2015 Kidney disease, chronic, stage III (GFR 30-59 ml/min) ([facility]) 06/28/2022 Major depressive disorder 07/15/2007 ICD-10 update of inactive term Obesity hypoventilation syndrome ([facility]) 06/28/2022 Obesity, BMI not known Personal history of colonic polyps PPD positive Restless leg syndrome Right abducens nerve palsy 06/19/2022 Sleep apnea SOB (shortness of breath) 12/26/2015 T2DM (type 2 diabetes mellitus) ([facility]) dx age 55 Type 2 diabetes mellitus with diabetic polyneuropathy, with long-term current use of insulin ([facility]) 12/10/2019 Past Surgical History: Past Surgical History: Procedure Laterality Date AFLIBERCEPT [...] Scotty Pearson DO at ENDOS[facility] FLUORESCEIN ANGIOGRAPHY MULTIFRAME 01/12/2017 OD > OS / Dr. Brown FX/DIS,RADIAL,OPN,INTRAARTIC,INT FIX,[address] Savage INJECTION OF EYE DRUG Bilateral 07/15/2024 Eylea OU # 3 Dr Gordon IR ASPIRATION ABSCESS/COLLECTION 05/07/2023 IR PROCEDURE NOT PERFORMED DOCUMENTATION ONLY 05/07/2023 LAPAROSCOPY;APPENDECTOMY N/A 01/28/2017 LAPAROSCOPIC APPENDECTOMY performed by West Newell MD at OR [facility] PARTIAL REMOVAL OF COLON 2000 left hemicolectomy, polyps REMOVE TONSILS & ADENOIDS, UNDER 12 Social History/Disposition Lives with: Family (10/06/24924) Assistance available: Yes (10/06/24924) Dwelling type: Single story home (10/06/24924) Entry steps: None (10/06/24924) Prior Level of Function Reported by: Patient (10/06/24924) Ambulation: Ambulatory with device (10/06/24924) Ambulatory Device: Rolling walker (10/06/24924) Devices at home: Wheelchair;Rolling walker (10/06/24924) Observations Consciousness: Alert (10/06/24924) Orientation: Oriented times 4 (10/06/24924) Psychosocial: Patient can communicate basic needs (10/06/24924) Pain: No complaints of pain P.T. Bed Mobility Supine-Sit: Minimal Assistance (10/06/24924) Sit-Supine: Minimal Assistance (10/06/24924) Transfers Sit-Stand: Minimal Assistance (x2) (10/06/24924) Stand-Sit: Minimal Assistance (x2) (10/06/24924) Ambulation: Distance ambulated (feet): side steps to HOB Assistive Device: No device Assist: Minimal Assistance x2 Balance Sit (Static): Fair (10/06/24924) Sit (Dynamic): Fair (10/06/24924) Stand (Static): Poor (10/06/24924) Stand (Dynamic): Poor (10/06/24924) Patient and or Family Goal(s): to get well and to return home Patient Education Review of Precautions: Safety;Fall (10/06/24924) Safety Awareness: Patient can communicate basic needs (10/06/24924) Preferred learning method: Combination (10/06/24924) Barriers to learning: None (10/06/24924) Method of Education: Verbalized to patient (10/06/24924) Topic of Education: Safety with mobility and Goals/plan of care Method of Education: Verbal discussion and explanation provided to pt: verbalized understanding andor agreement of this information Treatment Provided: Therapeutic Activities 9 minutes: bed mobility training transfer training Evaluation High Complexity 15 minutes - [id number]: Patient was cooperative during treatment session. High complexity evaluation performed and 3 or more personal factors or comorbidities were identified that will impact plan of care, including obesity, history of COPD, and cardiac history. Patient presents with limitations in bed mobility, transfers, and gait, which will impact plan of care. These limitations will be addressed by the goals set for this patient. Alarm Status Patient positioned in: Bed (10/06/24924) With: Bed alarm intact and functioning and call leyva in reach (10/06/24924) Treatment Status: Treatment at bedside (10/06/24924) Goals: Demonstrate Bed Mobility with: Supine to Sit: supervision (with cues) Sit to supine: supervision (with cues) Demonstrate Transfers with: Sit to stand: minimal assistance (pt does 75%) Stand to sit: minimal assistance (pt does 75%) Demonstrate Ambulation: assistive device: rolling walker distance in feet: 100 level of assistance on level surface: minimal assistance (pt does 75%) Time Frame: 1-8 sessions Assessment: Pt tolerated session fair and was agreeable to participate. Minimal assist for bed mobility tasks. Transfers and side steps with minimal assist of 2. Pt positioned in bed post treatment with bed alarm intact and functioning, call leyva in reach and all needs met. Pt with AM-PAC score of 10; would consider post-acute care services which may include home health, care home, outpatient therapy, or inpatient rehab. The level of care will be determined in collaboration with the patient, family/caregiver, and care team members. Deficits requiring P.T. treatment needs: Safety;Mobility;Balance;Endurance (10/06/24924) Equipment Needs: Treatment Plan: Bed mobility training, Transfer training, and Gait training Anticipated Frequency (on eval): 3 to 5 times per week (10/06/24924) AM PAC Score with Stairs: 10 * Yamileth Hedrick, OTR/L - 10/06/2024 9:25 AM ESTAssociated Order(s): ADULT OCCUPATIONAL THERAPY CONSULT IP GENERAL EVALUATION - Occupational Therapy [address] [place] [phone] Name: Meera Mcgraw Location: [facility] IP- Date: 10/06/2024 Time: 924 Meera Mcgraw is a 69 year old female. Patient Status: Inpatient Insurance: Payor: MEDICARE Plan: MEDICARE A AND B Product Type: *No Product type* Payor: [facility] - [place] ([facility]) Plan: [id number] Product Type: *No Product type* Patient Seen: at bedside, nursing cleared patient for therapy Patient Identified By: Name, ID Band and Date Diagnosis: SOB; heart failure (10/06/24924) Status of treatment: Evaluation completed (10/06/24924) Orders: OT evaluation and treatment (10/06/24924) Weight Bearing Status: Weight bearing as tolerated (10/06/24924) Precautions: Falls;Safety (10/06/24924) Total Treatment Time: 24 (10/06/24924) Past Medical History: Past Medical History: Diagnosis Date Acute appendicitis [...] 06/19/2022 Heart failure, diastolic, with acute decompensation (HCC) 2023-10-28 Adding I50.33-Heart failure, diastolic, with acute decompensation (HCC) Dx to History HTN, goal below 140/90 11/07/2014 HTN, goal to be determined Hypoxia 12/26/2015 Influenza A 12/29/2015 Kidney disease, chronic, stage III (GFR 30-59 ml/min) ([facility]) 06/28/2022 Major depressive disorder 07/15/2007 ICD-10 update of inactive term Obesity hypoventilation syndrome (HCC) 06/28/2022 Obesity, BMI not known Personal history of colonic polyps PPD positive Restless leg syndrome Right abducens nerve palsy 06/19/2022 Sleep apnea SOB (shortness of breath) 12/26/2015 T2DM (type 2 diabetes mellitus) ([facility]) dx age 55 Type 2 diabetes mellitus with diabetic polyneuropathy, with long-term current use of insulin ([facility]) 12/10/2019 Past Surgical History: Past Surgical History: Procedure Laterality Date AFLIBERCEPT [...] Scotty Pearson DO at [facility] FLUORESCEIN ANGIOGRAPHY MULTIFRAME 01/12/2017 OD > OS / Dr. Brown FX/DIS,RADIAL,OPN,INTRAARTIC,INT FIX,[address] Savage INJECTION OF EYE DRUG Bilateral 07/15/2024 Eylea OU # 3 Dr Gordon IR ASPIRATION ABSCESS/COLLECTION 05/07/2023 IR PROCEDURE NOT PERFORMED DOCUMENTATION ONLY 05/07/2023 LAPAROSCOPY;APPENDECTOMY N/A 01/28/2017 LAPAROSCOPIC APPENDECTOMY performed by West Nweell MD at OR [facility] PARTIAL REMOVAL OF COLON 2000 left hemicolectomy, polyps REMOVE TONSILS & ADENOIDS, UNDER 12 Social History/Disposition Lives with: Family (10/06/24924) Assistance available: Yes (10/06/24924) Dwelling type: Single story home (10/06/24924) Entry steps: None (10/06/24924) Pain: No complaints of pain Observations Consciousness: Alert (10/06/24924) Other Findings Endurance: Fair (10/06/24924) Current Functional Status: Self Care Grooming: Minimal Assistance (10/06/24924) Dressing Upper Body: Minimal Assistance (10/06/24924) Lower Body: Maximal Assistance (10/06/24924) Bathing Upper Body: Minimal Assistance (10/06/24924) Lower Body: Maximal Assistance (10/06/24924) Functional Ambulation Assistive Device: No device (10/06/24924) Level of Assistance: Minimal Assistance (of 2) (10/06/24924) Bed Mobility Supine-Sit: Minimal Assistance (10/06/24924) Sit-Supine: Minimal Assistance (10/06/24924) OT Transfers Sit-Stand: Minimal Assistance (of 2) (10/06/24924) Stand-Sit: Minimal Assistance (of 2) (10/06/24924) Balance Sit (Static): Fair (10/06/24924) Sit (Dynamic): Fair (10/06/24924) Stand (Static): Poor (10/06/24924) Stand (Dynamic): Poor (10/06/24924) Alarm Status Patient positioned in: Bed (10/06/24924) With: Bed alarm intact and functioning and call leyva in reach (10/06/24924) Patient and Family Goals: to get well and to return home Patient Education Education Topic: Role of OT (10/06/24924) Review of Precautions: Safety;Fall (10/06/24924) Treatment Provided: Self Detention Management Trainin minutes Evaluation Moderate Complexity 15 minutes - [id number]: Patient was cooperative and pleasant during treatment session. Moderate complexity evaluation performed and 3-5 activity limitations were identified, including ADL deficit, functional mobility deficit, bed mobility deficit, decreased endurance, andimpaired balance. Minimal or moderate modification of the functional task was necessary to completethe evaluation. Deficits Requiring O.T. Treatment: Deficits requiring O.T. treatment needs: ADL/self-care;Balance;Endurance;Functional mobility (10/06/24924) Goals: Demonstrates Grooming: at: supervision Demonstrates Bathing upper body at :supervision Demonstrates Bathing lower body at :minimal assistance Demonstrates Dressing upper body at : supervision Demonstrates Dressing lower body at :minimal assistance Demonstrates Bed mobility with : Supine to Sit: supervision Sit to Supine: supervision Demonstrates Transfer with : Sit to stand: minimal assistance Stand to sit: minimal assistance Bed-Chair: minimal assistance Toilet: minimal assistance Demonstrates Functional ambulation :minimal assistance with rolling walker Demonstrates Endurance: at Fair+ Demonstrates Standing Balance: at Fair with rolling walker Time Frame: 1-8 treatment sessions Assessment: Patient was seen this date for skilled Occupational Therapy services. Patient toleratedOT session with Fair endurance. Patient required minimal assistance for upper body bathing and dressing; and maximal assistance for lower body bathing and dressing. Occupational Therapy AM-PAC score is 16. Would consider post-acute care services which may include home health, care home, outpatient therapy, or inpatient rehab. The level of care will be determined in collaboration with the patient, family/caregiver, and care team members. Please see note above for patient's current level offunction/details. Patient should continue to benefit from in-patient Occupational Therapy services to improve patient's level of functioning with Activities of Daily Living. Barriers to discharge from in-patient Occupational Therapy services include ADL/self care performance, functional mobility performance, endurance, balance, and safety. Treatment Plan: Safety, Bed mobility training, Functional Ambulation, Transfer training, Balance activities, ADL training and Endurance Anticipated Frequency (on eval): 2 to 5 times per week (10/06/24924) AM-PAC Help From Another Person Eating Meals: None (10/06/24924) Help From Another Person Taking Care of Personal Grooming: A little (10/06/24924) Help From Another Person To Put On/Take Off Upper Body Clothing: A little (10/06/24924) Help From Another Person To Put On/Take Off Lower Body Clothing: A lot (10/06/24924) Help From Another Person Toileting: A lot (10/06/24924) Help From Another Person Bathing: A lot (10/06/24924) OT AM-PAC Score: 16 (10/06/24924) OT AM-PAC t-Scale Score: 35.96 (10/06/24924) JH HLM (Highest Level of Mobility) Goal: Level 4 move to chair/commode (10/06/24924) * Darline Yepez MPT - 10/05/2024 2:30 PM ESTAssociated Order(s): ADULT PHYSICAL THERAPY CONSULT IP PT note: Patient in CAT scan at this time. Will follow pt during stay. * Braxton Elizalde MD - 10/04/2024 6:32 PM ESTAssociated Order(s): THORACIC MEDICINE / PULMONOLOGY CONSULT IP Please see separate CCM consult from today. * Adia Lee PA-C - 10/04/2024 1:03 PM ESTAssociated Order(s): CRITICAL CARE MEDICINE CONSULT IP Critical Care Medicine CONSULT [address] [place] [id number] Name: Meera Mcgraw Location: [facility] OBS-207/A Date: 10/04/2024 Time: 1:03 PM REQUESTING SERVICE: hospitalist REASON FOR CONSULT: "acute on chronic hypercapnic and hypoxic respiratory failure" HPI: Meera Mcgraw is a 69-year-old female with PMHx significant for COPD on 2L baseline, PAOLA onCPAP HS, HFpEF (55%), T2DM, chronic BLE venous stasis wounds and CKD who presented to [facility] ED 10/02/24for worsening pain and swelling in BLE. Per patient, she has the dressings changed every other day by home care and noted increased redness and swelling in her legs. She also notes difficulty ambulating 2/2 the pain. Patient was placed in observation and podiatry consulted recommending WBAT and kelfex without need for urgent/emergent surgical intervention. Patient receiving diuresis for increasedSOB and ordered CPAP HS. [facility] asked to evaluate today for hypercapnia. On evaluation, patient is on BiPAP mask, AAOx3 able to provide above HPI. She reports ongoing pain in her legs for which she received dilaudid and oxycodone for in the last 24 hours. She reports breathing has improved since admission. No additional complaints at present. PAST MEDICAL HISTORY: Past Medical History: Diagnosis Date Acute appendicitis 01/29/2017 Acute respiratory failure with hypoxia and hypercapnia ([facility]) 06/19/2022 Chronic venous hypertension with ulcer ([facility]) 05/05/2022 Controlled substance agreement signed 01/28/2017 COPD exacerbation ([facility]) 12/26/2015 COPD, severity to be determined ([facility]) 12/26/2015 Diabetic retinopathy of right eye associated with type 2 diabetes mellitus ([facility]) 06/08/2021 Dyslipidemia 12/26/2015 Dyslipidemia, goal to be determined Gastroesophageal reflux disease without esophagitis 05/04/2023 Heart failure, diastolic, with acute decompensation ([facility]) 06/19/2022 Heart failure, diastolic, with acute decompensation ([facility]) 2023-10-28 Adding I50.33-Heart failure, diastolic, with acute decompensation ([facility]) Dx to History HTN, goal below 140/90 11/07/2014 HTN, goal to be determined Hypoxia 12/26/2015 Influenza A 12/29/2015 Kidney disease, chronic, stage III (GFR 30-59 ml/min) ([facility]) 06/28/2022 Major depressive disorder 07/15/2007 ICD-10 update of inactive term Obesity hypoventilation syndrome ([facility]) 06/28/2022 Obesity, BMI not known Personal history of colonic polyps PPD positive Restless leg syndrome Right abducens nerve palsy 06/19/2022 Sleep apnea SOB (shortness of breath) 12/26/2015 T2DM (type 2 diabetes mellitus) ([facility]) dx age 55 Type 2 diabetes mellitus with diabetic polyneuropathy, with long-term current use of insulin ([facility]) 12/10/2019 Past Medical History - Pertinent Negatives: Negative unless noted above PAST SURGICAL HISTORY: Past Surgical History: Procedure Laterality Date AFLIBERCEPT [...] Scotty Pearson DO at ENDOSCOPY [facility] FLUORESCEIN ANGIOGRAPHY MULTIFRAME 01/12/2017 OD > OS / Dr. Brown FX/DIS,RADIAL,OPN,INTRAARTIC,INT FIX,[address] Savage INJECTION OF EYE DRUG Bilateral 07/15/2024 Eylea OU # 3 Dr Gordon IR ASPIRATION ABSCESS/COLLECTION 05/07/2023 IR PROCEDURE NOT PERFORMED DOCUMENTATION ONLY 05/07/2023 LAPAROSCOPY;APPENDECTOMY N/A 01/28/2017 LAPAROSCOPIC APPENDECTOMY performed by West Newell MD at [facility] PARTIAL REMOVAL OF COLON 2000 left hemicolectomy, polyps REMOVE TONSILS & ADENOIDS, UNDER 14 FAMILY HISTORY: Family History Problem Relation Name Age of Onset Cancer Mother breast Obesity Father Obesity Brother sleep apnea Family History - Pertinent Negatives: Negative unless noted above SOCIAL HISTORY: Social History Tobacco Use Smoking status: Former Current packs/day: 0.00 Average packs/day: 0.1 packs/day for 3.0 years (0.4 ttl pk-yrs) Types: Cigarettes Start date: 03/08/2019 Quit date: 03/08/2022 Years since quittin.5 Smokeless tobacco: Never Tobacco comments: smoked in college also Vaping Use Vaping status: Never Used Substance Use Topics Alcohol use: Yes Comment: rarely Drug use: No ALLERGIES: Patient has no known allergies. ROS: Constitutional: (+) fatigue Cardiovascular: (+) lower extremity edema Pulmonary: (+) dyspnea with exertion Abdominal/GI: (-) negative: no pain, heartburn, dysphagia, bleeding, change in bowel habits, nauseaor vomiting Skin: (+) rash on abdomen Neurology: (-) negative: no focal neurologic defect PHYSICAL EXAMINATION: Most Recent Vital Signs: BP: 115 mmHg/57 mmHg (10/04/24 1200) Pulse: 72 (10/04/24 1200) Resp: 17 (10/04/241199) Temp: 36.78 C (10/04/241199) Temp Summary: Temp Min: 35.6 °C (96 °F) Max: 36.9 °C (98.5 °F) SpO2: 100 % (10/04/24 1200) O2 flow rate: 6 L/MIN (10/04/24 0800) Supplemental O2 Delivery: Non-Invasive CPAP/BiPAP (10/04/241199) Constitutional: no acute distress CV: RRR Chest: normal respiratory effort Abdomen: soft, +rash/excoriations Musculoskeletal: (-) negative Extremities: edema, erythema BLE, wraps in place Skin: warm, dry: Neuro: alert, oriented to person, place, and time LABS: Labs reviewed as indicated below: 10/04/24 07:55 10/04/24 09:40 10/04/24 12:09 pH, Arterial 7.215 (L) pCO2, Arterial 79.5 (HH) pO2, Arterial 86.9 O2 Content, Arterial 15.1 O2 Flow, Arterial Not Provided Base Excess, Arterial 1.6 Reduced Hemoglobin, Arterial 4.9 Temperature 37.0 37.0 Oxyhemoglobin, Arterial 93.3 (L) pH, Venous 7.176 (LL) pCO2, Venous 91.4 (H) pO2, Venous 45.4 O2 Content, Venous 11.9 Oxyhemoglobin, Venous 70.2 Base Excess, Venous 1.7 FiO2 40 Carboxyhemoglobin, Whole Blood 1.2 1.3 Methemoglobin, Whole Blood 0.3 0.5 Reduced Hemoglobin, Venous 28.3 SODIUM 139 POTASSIUM 5.4 (H) CHLORIDE 102 CO2 31 BUN 46 (H) CREATININE 1.7 (H) EGFR 32 (L) ANION GAP 6 (L) GLUCOSE 100 CALCIUM 8.6 GLUCOSE - POCT Bicarbonate, Whole Blood 32.5 (H) 31.0 Protein 7.2 CBC Rpt ! WBC 6.64 RBC 4.16 HGB 11.3 (L) 12.1 11.4 (L) HCT 38.7 MCV 93.0 MCH 27.2 MCHC 29.2 RDW 14.8 PLT 172 MPV 9.0 CBC WITH WBC DIFFERENTIAL Rpt ! Absolute Neutrophils 4.53 Absolute Lymphocytes 1.00 Absolute Monocytes 0.64 Absolute Eosinophils 0.32 Absolute Basophils 0.05 Albumin 3.4 (L) AST 17 ALT 7 (L) Alkaline Phosphatase 84 Bilirubin, Total 0.3 IMAGING: CXR 10/02/24 Impression: - pulmonary vascular congestion IMPRESSION and PLAN: Meera Mcgraw is a 69-year-old female with PMHx above who presented with worsening swelling, erythema and pain in her BLE. Noted to be SOB on admission and admitted for observation. Currently being treated for congestive heart failure. Acute on chronic hypercapnic respiratory failure - worsening hypercapnia likely in the setting of opioid use, would avoid as able and consider alternative medications for pain control - GCS 15 at present, would continue BiPAP for now and ok to give break if mentation remains appropriate; continue HS and while sleeping Congestive heart failure - agree with ongoing diuresis Agree with admission to PCU. No acute CCM needs at present. Please reach out for re-evaluation if worsening mentation, increasing CO2 despite limiting opioids, or increasing oxygen requirements. Patient seen, examined and discussed with Dr. Franco. Care plan agreed upon. Cosigned by Luis Felipe Franco MD at 10/04/2024 5:33 PM EST * Ernie Guajardo DPM - 10/03/2024 7:10 AM ESTAssociated Order(s): PODIATRY CONSULT IP Images from the original note were not included. CONSULT NOTE - PODIATRY [facility]-[address] [place] [id number] Name: Meera Mcgraw Location: Tx2/A Date: 10/03/2024 7:11 AM REQUESTING SERVICE: Internal Medicine REASON FOR CONSULT: B/L lower extremity wounds HPI: Meera Mcgraw is a 69 year old female with PMH significant for but not limited to COPD, CHF, DM, chronic B/L lower extremity venous stasis wounds ho presented with worsening of wounds, increased shortness of breath, rash on right hand, abdomen and back. Podiatry was consulted for bilateral lower extremity wounds. Per chart review, she has followed with [facility] in the outpatient setting for a number of years for management of the wounds to the extremities. Patient was last evaluated by wound care on 09/23/2024 at which time multidex powder with optilock, ABD and Coban 2 lite. She reports that home health providers visit her home 3 times per week for dressing changes. Shestates that her wound care provider recommended increased dressing change frequency however, she has no one at home to help with dressing changes and she is unable to perform dressing changes on her own. She reports copious amounts of weeping from her legs and she also believes that an increase in dressing change frequency would be beneficial. Pt denies any other pedal complaints. Denies F/C/N/V/CP/SOB/Calf pain. Patient currently has a temp of 98.4°F and WBC 11.44. PAST MEDICAL HISTORY: Past Medical History: Diagnosis Date Acute appendicitis 01/29/2017 Acute respiratory failure with hypoxia and hypercapnia ([facility]) 06/19/2022 Chronic venous hypertension with ulcer ([facility]) 05/05/2022 Controlled substance agreement signed 01/28/2017 COPD exacerbation ([facility]) 12/26/2015 COPD, severity to be determined ([facility]) 12/26/2015 Diabetic retinopathy of right eye associated with type 2 diabetes mellitus ([facility]) 06/08/2021 Dyslipidemia 12/26/2015 Dyslipidemia, goal to be determined Gastroesophageal reflux disease without esophagitis 05/04/2023 Heart failure, diastolic, with acute decompensation ([facility]) 06/19/2022 Heart failure, diastolic, with acute decompensation ([facility]) 2023-10-28 Adding I50.33-Heart failure, diastolic, with acute decompensation ([facility]) Dx to History HTN, goal below 140/90 11/07/2014 HTN, goal to be determined Hypoxia 12/26/2015 Influenza A 12/29/2015 Kidney disease, chronic, stage III (GFR 30-59 ml/min) ([facility]) 06/28/2022 Major depressive disorder 07/15/2007 ICD-10 update of inactive term Obesity hypoventilation syndrome ([facility]) 06/28/2022 Obesity, BMI not known Personal history of colonic polyps PPD positive Restless leg syndrome Right abducens nerve palsy 06/19/2022 Sleep apnea SOB (shortness of breath) 12/26/2015 T2DM (type 2 diabetes mellitus) ([facility]) dx age 55 Type 2 diabetes mellitus with diabetic polyneuropathy, with long-term current use of insulin ([facility]) 12/10/2019 PAST SURGICAL HISTORY: Past Surgical History: Procedure Laterality Date AFLIBERCEPT [...] Scotty Pearson DO at [facility]OS[facility] FLUORESCEIN ANGIOGRAPHY MULTIFRAME 01/12/2017 OD > OS / Dr. Brown FX/DIS,RADIAL,OPN,INTRAARTIC,INT FIX,[address] Savage INJECTION OF EYE DRUG Bilateral 07/15/2024 Eylea OU # 3 Dr Gordon IR ASPIRATION ABSCESS/COLLECTION 05/07/2023 IR PROCEDURE NOT PERFORMED DOCUMENTATION ONLY 05/07/2023 LAPAROSCOPY;APPENDECTOMY N/A 01/28/2017 LAPAROSCOPIC APPENDECTOMY performed by West Newell MD at [facility] PARTIAL REMOVAL OF COLON 2000 left hemicolectomy, polyps REMOVE TONSILS & ADENOIDS, UNDER 14 FAMILY HISTORY: Family History Problem Relation Name Age of Onset Cancer Mother breast Obesity Father Obesity Brother sleep apnea SOCIAL HISTORY: Social History Socioeconomic History Marital status: Spouse name: mary Number of children: 1 Years of education: 18 Highest education level: Not on file Occupational History 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 Tobacco Use Smoking status: Former Current packs/day: 0.00 Average packs/day: 0.1 packs/day for 3.0 years (0.4 ttl pk-yrs) Types: Cigarettes Start date: 03/08/2019 Quit date: 03/08/2022 Years since quittin.5 Smokeless tobacco: Never Tobacco comments: smoked in [...] on file Food Insecurity: No Food Insecurity (05/01/2024) Food Insecurity Do you need food for [...] on file Transportation Needs: No Transportation Needs (01/22/2024) Transportation Needs Do you have trouble getting [...] - for ages 18 years and over): Not on file Do you (or your family) have trouble finding or paying for a ride (transportation)? (Household - for ages 0-17 years): Not on file Social Connections: Socially Integrated (01/22/2024) Social Connections How often do you feel lonely or isolated from those around you? (Adult - for ages 18 years and over): Never Housing Stability: High Risk (05/01/2024) Housing Stability Do you currently live in a prison or have no steady place to sleep [...] - for ages0-17 years): Not on file ALLERGIES: Review of patient's allergies indicates: No Known Allergies VITALS: BP: 134 mmHg/64 mmHg (10/03/24 0200) Pulse: 62 (10/03/2445) Resp: 16 (10/03/24199) Temp: 36.89 C (10/02/24 2100) Temp Summary: Temp Min: 36.2 °C (97.2 °F) Max: 36.9 °C (98.4 °F) SpO2: 89 % (10/03/24644) O2 flow rate: 6 L/MIN (10/03/24644) Supplemental O2 Delivery: Nasal Cannula (10/03/24644) VITAL SIGNS LAST 24 HRS: Systolic BP: Most Recent Systolic BP Av.4 mmHg Min: 124 mmHg Max: 148 mmHg Temperature: Most Recent Temperature Av.6 C Min: 36.22 C Max: 36.89 C Pulse: Pulse Av.7 Min: 60 Max: 66 Respirations: Resp Av.8 Min: 16 Max: 18 SpO2: SpO2 Av.6 % Min: 89 % Max: 100 % ROS: A complete review of systems was negative unless otherwise stated in the HPI. LOWER EXTREMITY PHYSICAL EXAM: VASC: DP pulses palpable to BL lower extremities. PT pulses palpable to BL extremities. CLINICAL DERMATOLOGIST is brisk to all digits of BL lower extremities . Pedal hair is absent to BL lower extremities. Temperature gradient is warm to warm from proximal tibia to foot of BL lower extremities. NEURO: Protective sensation is diminished to BL lower extremities. Light touch sensation is diminished to BL lower extremities. Gross motor function is intact to BL lower extremities. ORTHO: Ankle ROM is diminished to BL lower extremities, with (-) pain. Digital ROM is diminished toBL lower extremities, with (-) pain. DERM: Skin color, turgor, and texture are abnormal.(-) open lesions to BL lower extremities. (-) signs of infection, including purulence, bogginess, malodor, or fluctuance to BL lower extremities. (+) edema to BL lower extremities. (+) erythema to BL lower extremities. (-) skin lesions present to BL lower extremities. Xerosis noted to bilateral feet. Onychomycosis to toes x 10. RLE: Venous stasis ulcer noted to the proximal right leg with a granular wound base. Wound measurements 1 cm x 0.3 cm x 0.1 cm. Wound does not probe to bone. Chronic venous stasis changes noted to the R leg. R leg tender upon palpation. Erythema noted to the R leg, extending to the tibial tuberosity. No bogginess, crepitus, fluctuance or purulence noted. Serous drainage noted on dressing. LLE: Chronic venous stasis changes noted to the left leg. Pain noted on palpation of the left leg. No associated bogginess, crepitus, fluctuance or purulence noted. No discernable openings that probeto bone noted. Erythema noted to the L leg. Serous drainage noted on dressing. LABS/MICRODATA: Labs reviewed as indicated below: BLOOD COUNT: WBC, Hgb, Platelets (see below for most recent values): Lab Results Component Value Date/Time WBC 11.44 (H) 10/03/2024 04:48 AM WBC 6.21 05/11/2018 01:48 AM HGB 11.8 (L) 10/03/2024 04:48 AM HGB 14.7 05/11/2018 01:48 AM HGB 13.0 08/10/1996 01:10 AM PLT 214 10/03/2024 04:48 AM PLT 182 05/11/2018 01:48 AM BUN, Creatinine, GFR (est.), Na+, K+, Cl-, CO2, Gluc, Ca2+(see below for most recent values): Lab Results Component Value Date/Time BUN 38 (H) 10/03/2024 04:48 AM BUN 46 (H) 09/15/2023 04:26 AM BUN 17 12/10/2019 10:11 AM CREAT 1.5 (H) 10/03/2024 04:48 AM CREAT 1.9 (H) 09/15/2023 04:26 AM CREAT 0.8 12/10/2019 10:11 AM GFRESTIMATED >60.0 12/10/2019 10:11 AM NA 137 10/03/2024 04:48 AM NA 136 12/10/2019 10:11 AM POTASSIUM 5.2 (H) 10/03/2024 04:48 AM POTASSIUM 4.9 09/15/2023 04:26 AM POTASSIUM 3.8 12/10/2019 10:11 AM CL 101 10/03/2024 04:48 AM CL 96 (L) 12/10/2019 10:11 AM CO2 27 10/03/2024 04:48 AM CO2 31 09/15/2023 04:26 AM CO2 30 12/10/2019 10:11 AM CA 8.5 10/03/2024 04:48 AM CA 8.9 12/10/2019 10:11 AM COAGS: PT, INR (see below for most recent values): Lab Results Component Value Date/Time INR 1.2 05/01/2024 03:19 AM INR 1.2 05/04/2023 09:26 PM INR 1.2 03/07/2023 06:10 AM INR 1.04 12/27/2015 07:48 AM IMAGING/STUDIES: Not indicated. IMPRESSION and RECOMMENDATIONS: Meera Mcgraw is a 69 year old female who presents with venous stasis ulcer with venous insufficiency. Patient was seen and evaluated with all questions and concerns addressed. Partial thickness ulcer noted to the proximal R leg with no associated bogginess, crepitus, fluctuance or purulence noted. Chronic venous stasis changes noted to BL lower extremities with associated erythema. Patient isbeing managed inpatient for heart failure. Agree with antibiotic therapy. Recommend local wound care consisting of xeroform, ABD padding, Kerlix and CHRISTOPHER bandage while in house. May resume previous wound care regimen upon discharge. [facility] Pt seen and evaluated with all questions and concerns addressed. Pt case discussed with Dr. Guajardo WB status: WBAT Abx: PO Keflex per medicine team Labs and imaging reviewed as above. Dressing(s) to applied to BLLE consisting of ABDs, kerlix, and CHRISTOPHER wrap No need for urgent or emergent podiatric surgical intervention at this time. Podiatry to continue to follow patient while in-house. Thank you for the consult. Christopher Jenkins DPM (PGY-2) This note was completed using the dictation program Fluency Direct. As such, there may be misspellings, word substitutions, or other variations that should not change the essence of the clinical content of this encounter note. Necessary attempts were made to correct dictation errors. If there is need for further clarification, please direct questions to the author. Reviewed information with resident and with care directed to care with wound Attending Attestation: I have discussed the patient's management with the medical trainee and agree with the note. Please refer to the documented findings and plan of care. The patient's bedside service on 10/03/24 (this darline late entry) consisted of an evaluation, a procedure and a diagnostic. I was present and confirmedthe findings of the history and exam and was present for the entire procedure. I have reviewed the interpretation of the diagnostic study. I spent a total of 40-54 minutes (exact time 48 mins) on the date of service in preparation, delivery, and documentation of the care provided to Meera Mcgraw excluding any time spent in the performance of separately billed services or time spent by another provider/QHP. documented in this encounter Nursing Notes * Patricia Sullivan, RN - 10/07/2024 10:00 PM EST IN-HOUSE TRANSFER RECEIVING UNIT - NURSING [address] [place] [phone] Name: Meera Mcgraw Location: [facility] [id number]-[id number] Date: 10/07/2024 Time: 10:01 PM Patient received to room 619 at 2143 Vital Signs: BP: 131 mmHg/66 mmHg (10/07/242142) Pulse: 62 (10/07/242142) Resp: 18 (10/07/242142) Temp: 36.94 C (10/07/242142) Temp Summary: Temp Min: 36.7 °C (98 °F) Max: 37.5 °C (99.5 °F) SpO2: 90 % (10/07/242142) O2 flow rate: 4 L/MIN (10/07/242142) Supplemental O2 Delivery: Nasal Cannula (10/07/242142) Pertinent transfer information upon arrival Pt is alert and oriented x 4,on 4 litre oxygen via N/c,pt is on contact precautions for scabies,B/L wounds with A/C wraps on,skin has multiple scratches all over her body self inflicted from itching,has a thompson draining clear yellow urine Belongings received with patient: jewelry, cell phone, clothing/shoes, and 2 rings,small pillow, Verbal SBAR report received from: Aminah ARIAS * Patricia Sullivan RN - 10/07/2024 10:00 PM EST .Dual Licensed Skin Assessment completed by Patricia mancini RN and Liane LO. The patient is/has a N/A Skin Breakdown (includes non blanchable erythema): Yes. Wound Type: Moisture associated skin damage/incontinent related skin damage, location Pannus Other, location multiple skin scratch lua allover the body from itching Wound Ostomy Nurse Notified: Yes - notified via wound care protocol Nursing interventions: Continue with 2hrly skin care * Pippa Aburto RN - 10/04/2024 4:58 PM EST Patient PCU Arrival Note Patient arrived to PCU Room 3 at 1647. Report obtained from previous JUANA Mosley. Vital signs upon arrival listed below. Patient was safely transferred to PCU bed and promptly assessed for skin breakdown. Bed locked with side rails up in lowest position and bed alarm on. HOB elevated unless otherwise specified by provider via head of bed restrictions. Patients IV's checked for blood return and replaced if needed. Provider made aware of patient arrival to PCU. Will update patients family if present. See flowsheet for arrival time vitals and assessment. See below section for detailed belongings list. Vital signs upon arrival Blood pressure 107/54, pulse 69, temperature 37.6 °C (99.6 °F), temperature source Tympanic, resp. rate 16, height 1.626 m (5' 4"), weight 117.4 kg (258 lb 13.1 oz), last menstrual period 11/29/2010, SpO2 97%, not currently . Skin Assessment Dual Licensed Skin Assessment completed by Maria Ines Velázquez RN and Pippa Sheriff RN. The patient is/has a N/A Skin Breakdown (includes non blanchable erythema): No Patient/caregiver, Meera, verbalized understanding that a pressure injury is anticipated due to the following risk factors: Acute respiratory failure, despite pressure injury prevention measuresof low air loss bed, turn and repositioning, heels elevated, moisture absorbent pads, and pillows and/or wedges being in place or due to patient's refusal/inability to comply with preventive measures. The areas at risk include but are not limited to the sacrum, bony prominences, heels, bridge of nose, . Education was provided about patient's condition and treatment as well as unit standards for turning, repositioning, and skin care. Patient Belonging Retained at Bedside Glasses, Cell phone, Clothes/shoes, and Purse Belongings Sent Home with Family No Pt has visible scratches all over her body and known BLE venous stasis ulcers. * Britney Pierre RN - 10/04/2024 4:47 PM EST IN-HOUSE TRANSFER SENDING UNIT - NURSING [address] [place] [phone] Name: Meera Mcgraw Location: [facility] Date: 10/04/2024 Time: 4:48 PM Pertinent information upon transfer awake, alert and oriented. Isolation: Contact Transferring nursing unit: Observation Vital signs: BP: 107 mmHg/54 mmHg (10/04/241599) Pulse: 69 (10/04/241599) Resp: 16 (10/04/241599) Temp: 37.17 C (10/04/241599) Temp Summary: Temp Min: 35.6 °C (96 °F) Max: 37.2 °C (98.9 °F) SpO2: 97 % (10/04/241599) O2 flow rate: 6 L/MIN (10/04/24 0800) Supplemental O2 Delivery: Non-Invasive CPAP/BiPAP (10/04/241599) From room Observation to PCU Bed3 Means of transfer: bed Family and/or significant other notified of transfer: family aware of admission Belongings being sent with patient: clothing/shoes Verbal SBAR report given to: Rosi ARIAS * Karla Hurtado RN - 10/03/2024 11:30 PM EST Dual Licensed Skin Assessment completed by Karla and Shelly Mancini. The patient is/has a N/A Skin Breakdown (includes non blanchable erythema): Yes. Wound Type: Other, location venous statis Wound Ostomy Nurse Notified: Yes - notified via wound care protocol Nursing interventions: dressing intact documented in this encounter ED Notes * Silvino Chávez MD - 10/02/2024 7:32 PM EST HISTORY OF PRESENT ILLNESS Meera Mcgraw is a 69 year old female who presents to the ED for evaluation of Infection (Bilateral leg wounds). The patient was seen at 10/02/24 1810. 69-year-old female, history of COPD on 2 L home nasal cannula, CKD, diabetes, chronic wounds bilateral lower extremities due to venous stasis, presenting with concern for lower extremity wound infection. Patient also reporting 1 week of worsening shortness of breath and 2 weeks of worsening lower extremity edema. Patient states that her home health nurse referred her in due to concern for worsening drainage from her legs, swelling, and infection as there is reported green drainage. Patient states she has chronic pain in the legs that is unchanged. No fevers or chills. She has had worsening shortness of breath without cough. Worsening orthopnea. Shortness of breath is exacerbated with activity. No recent trauma to the legs. The patient's allergies, past history, and medications were reviewed. PHYSICAL EXAM Initial Vitals (see all): BP 147/62 | Pulse 62 | Temp 97.2 | O2 100 %, Nasal Cannula | Weight 112.04 kg | Height 162.6 cm | BMI 42.4 kg/m2 Initial Pain Assessment (see all): 7 (severe pain)/10, location: legs ([facility] Adult Scale 0-10 (18 years and older)) Physical Exam Vitals and nursing note reviewed. Constitutional: Comments: Mild tachypnea, nontoxic appearing HENT: Head: Normocephalic and atraumatic. Mouth/Throat: Pharynx: Oropharynx is clear. Eyes: Extraocular Movements: Extraocular movements intact. Cardiovascular: Rate and Rhythm: Normal rate. Pulmonary: Comments: Mild tachypnea, there is mild rales bilateral bases Abdominal: Palpations: Abdomen is soft. Tenderness: There is no abdominal tenderness. There is no guarding or rebound. Musculoskeletal: Cervical back: Normal range of motion. Right lower leg: Edema present. Left lower leg: Edema present. Comments: Mild edema to bilateral lower extremities, dressings taken down and notable erythema and wounds to the bilateral lower extremities. There is no purulence or foul smell, no appreciated deep wounds, bilateral feet with normal cap refill Skin: Capillary Refill: Capillary refill takes less than 2 seconds. Comments: Excoriations to the bilateral upper extremities abdomen, back, linear papules extremitiesand along the waistband. Rash concerning for scabies Neurological: Mental Status: She is alert and oriented to person, place, and time. Mental status is at baseline. PROCEDURES AND TREATMENTS ED Orders | ED Results MEDICAL DECISION MAKING Nursing notes and vital signs were reviewed. ED Course as of 10/02/24 2210 Tahmina Oct 02, [id number] Normal WBC, hemoglobin 11.9 which is improved from previous [KS] 2038 BNP elevated from baseline. Troponin is 77 which is improved from previous. Glucose 259 but with normal anion gap and bicarb. Doubt DKA. [KS] 2038 Creatinine is improved from previous. [KS] 2208 Lower extremities with erythema. No overt signs of acute bacterial infection. At this time we will hold on antibiotics. Given the reported worsening of wounds, and suspicion for fluid overload, plan for observation for diuresis as well as Wound Care consult. Case discussed with hospitalist who agrees with plan for further evaluation and management and observation. [KS] ED Course User Index [KS] Silvino Chávez MD 69-year-old female with history as noted above presenting with concern for worsening lower extremity wounds as well as progressive dyspnea on exertion and orthopnea. Differential diagnosis includes but not limited to edema, soft tissue infection, chronic venous stasis wounds, COPD exacerbation, CHF, ACS. There is no overt acute arterial compromise of the lower extremities. Less concern at this time for a rapidly progressive necrotizing soft tissue infection. Also, patient with diffuse pruritus with excoriations and lesions consistent with most likely scabies. We will treat with permethrin. Plan for chest x-ray, EKG, labs. We will take down dressings of lower extremities. Amount and/or Complexity of Data Reviewed External Data Reviewed: notes. Details: Patient is seen at [facility] on 09/30/2024 for diffuse body rash. Prescribed permethrin at that time Labs: ordered. Decision-making details documented in ED Course. Radiology: ordered and independent interpretation performed. Details: Chest x-ray reviewed by me. My interpretation is that there is vascular congestion, no pneumothorax ECG/medicine tests: ordered and independent interpretation performed. Details: EKG reviewed by me. My interpretation is normal sinus rhythm, no acute ischemic changes Discussion of management or test interpretation with external provider(s): Case discussed with hospitalist who agrees with plan for observation for further evaluation and management. Risk Prescription drug management. Decision regarding hospitalization. Minor surgery with identified risk factors. Clinical Impressions SOB (shortness of breath) Concern for fluid overload Scabies Lower extremity venous stasis ulcers Disposition Admitted. Silvino Chávez documented in this encounter Miscellaneous Notes * Care Plan - Flower Cohen RN - 10/10/2024 4:15 PM EST Clinical Goal(s): pt will remain free from falls during shift (10/10/24 0700) Possible barriers to meeting goal(s)/advancing plan of care: potential for disorientation Stability of the patient: Moderately stable - low risk of patient condition declining or worsening Summary regarding today's goal(s): Met: pt has not fallen Recommendations: chair alarm on and call leyva within reach * Ancillary Progress Note - Katheryn Loco, ROVING HAND - 10/10/2024 2:15 PM EST CARE MANAGEMENT - ADULT DISCHARGE NOTE [facility] [place] [phone] Name: Meera Mcgraw Location: [facility] MS-619/A Date: 10/10/2024 Time: 2:15 PM The following coordination of care and discharge plan has been coordinated with the care team, patient, family and/or caregiver according to the patients’ needs and preferences. Discharge Discharge Was Caregiver/Family/Facility contacted regarding discharge: Yes (10/10/241414) Discharge Transportation: Wheelchair Van (10/10/24 141) Date of scheduled discharge transportation: 10/10/24 (10/10/24 141) Time of scheduled discharge transportation: 1700 (10/10/24 141) Patient declined post-hospital transition of care recommendation: N/A (10/10/24 141) Final Discharge Plan (Complete only at time of Discharge): SNF (10/10/24 1414) Destination - Admitted Since 10/02/2024 Service Provider Services Address Phone Fax Patient Preferred Last Updated [facility] [address] [place] [address] [place] [phone] -- Christi Zhao BSW 10/09/2024 1112 Narrative: Chart reviewed. Patient discussed in IDT. Pt deemed stable for DC Bed offered and accepted at [facility]. [facility] at 5PM on 10/10/24 Bedside RN Flower made aware via TT This Patient has been identified as a stranded patient. Family/friends are unable to transport patient at this time. Patient currently has no/inadequate financial means to pay for alternate transportation at this time. Given patient's clearance for d/c and lack of transportation, AND/OR Hospital [facility] a transportation voucher has been provided on this patient's behalf to ensure timely discharge. * Ancillary Progress Note - Katheryn Loco MSW - 10/10/2024 1:52 PM EST DISCHARGE TRANSPORTATION FOR STRANDED PATIENT [address] [address] Name: Meera Mcgraw Location: [facility] MS-619/A Date: 10/10/2024 Time: 1:53 PM This patient has been identified as a stranded patient. Family/friends are unable to transport at this time. Patient has no or inadequate financial means to pay for alternate transportation at this time. Given patient's clearance for discharge and lack of transportation and/or hospital capacity, a transportation voucher has been provided on this patient's behalf to ensure timely discharge. [place] Location: [facility] Date of Transportation: 10/10/24 Time of Transportation: 4pm If cost is greater than $50, indicate who from leadership approved the request: kristen lynch Destination: Post-Acute Care Facility Destination - Admitted Since 10/02/2024 Service Provider Services Address Phone Fax Patient Preferred Last Updated [facility] [address] [place] [phone] -- Christi Zhao BSW 10/09/2024 1112 Department Submitting Request: Care management Reason for Transportation Need: No financial means to pay for transportation Patient Mode of Transport: Wheelchair Van Company Providing Transport: [employer] Estimated Charge for Transport: $ 221.00 * Ancillary Progress Note - Katheryn Loco MSW - 10/10/2024 1:23 PM EST POST ACUTE CARE CARE MANAGEMENT [address] [place] [address] Name: Meera Mcgraw Location: [facility] MS-619/A Date: 10/10/2024 Time: 1:23 PM Post-Acute Care Patient General Information Living Quarters: House (10/07/241640) How many stories is the dwelling?: One Story (10/07/241640) Number of steps to enter living quarters:: ramp (10/07/241640) Location of bathroom(s): All floors or Single story dwelling (10/07/241640) Do you have serious difficulty walking or climbing stairs? (5 years old or older): Yes (10/03/241947) History of falling: No (10/09/242299) What was your living situation prior to admission/observation?: With Spouse;With Child (10/07/241640) Do you have any children, pets, or other dependents that you are currently caring for?: No (10/07/241640) AM-PAC Score With Stairs : 13 (10/10/24121) Post-Acute Care with AM-PAC < 17.99 Rehab diagnosis: Does not meet criteria (10/10/24 132) Prison Facility (SNF) Guidelines For Medical Approval (must select both): Care must be provided by an RN/MEDICAL INSTRUCTOR and cannot be managed at home;Care requires observation, monitoring and evaluation of effectiveness on a daily basis (10/10/24 1322) SNF guidelines for Rehab Approval (All selections required): Requries Training (select at least one);Requires intense care planning with realistic goals as identified by 1 of the following;Able to participate for at least 1 hour of therapy per day;Established rehabilitative progress;Frequent monitoring and or revision of treatment plan;Frequent re-assessment of established rehabilitative progress;Services required only able to be provided in an inpatient setting;One or more therapy modalities (PT/OT/ST) at least 5 times a week (10/10/24 132) Therapy Modalities: Physical Therapy;Occupational Therapy (10/10/24 132) Intense Care Plan Goals: Completion of home evaluation, assistance with home modifications;Assistance with application for community services;Coordination of multiple community services;Family medication and/or transfer training (10/10/241321) SNF Required Training: Gait training;Transfer Training;ADL training, with or without adaptive equipment (10/10/241321) Approved for Prison Rehab: Approved for Prison Rehab (10/10/241321) [facility] * Ancillary Progress Note - Inocente Diop COTA/L - 10/10/2024 9:00 AM EST PROGRESS NOTE - Occupational Therapy [facility]-[address] [place] [phone] Name: Meera Mcgraw Location: [facility] MS[facility]/A Date: 10/10/2024 Time: 899 Meera Mcgraw is a 69 year old female. Patient Status: Inpatient Insurance: Payor: MEDICARE Plan: MEDICARE A AND B Product Type: *No Product type* Payor: [facility] Plan: [facility] [employer] Product Type: *No Product type* Patient Seen: at bedside, nursing cleared patient for therapy Patient Identified By: Name, ID Band and Date Diagnosis: SOB; heart failure (10/10/24899) Status of treatment: Treatment completed (10/10/24899) Orders: OT evaluation and treatment (10/10/24899) Weight Bearing Status: Weight bearing as tolerated (10/10/24899) Precautions: Falls;Safety (10/10/24899) Total Treatment Time: 8 (10/10/24899) Pain: No complaints of pain Observations Consciousness: Alert (10/10/24899) Orientation: Person;Place;Time (10/10/24899) Other Findings Endurance: Sitting tolerance;Standing tolerance;Fair (10/10/24899) Current Functional Status: Activities of Daily Living: Self Care Grooming: Minimal Assistance (10/10/24899) Dressing Upper Body: Minimal Assistance (10/10/24899) Lower Body: Maximal Assistance (10/10/24899) Bathing Upper Body: Minimal Assistance (10/10/24899) Lower Body: Minimal Assistance (10/10/24899) Functional Ambulation Assistive Device: Rolling walker (10/10/24899) Distance in feet:: (bed to chair) (10/10/24899) Level of Assistance: Minimal Assistance (10/10/24899) Bed Mobility Supine-Sit: Contact Guard (10/10/24899) Sit-Supine: Not Tested (10/10/24899) OT Transfers Sit-Stand: Minimal Assistance (10/10/24899) Stand-Sit: Minimal Assistance (10/10/24899) Bed-Chair: Minimal Assistance (10/10/24899) Balance Sit (Static): Fair (10/10/24899) Sit (Dynamic): Fair (10/10/24899) Stand (Static): Fair (10/10/24899) Stand (Dynamic): Fair (10/10/24899) Patient Education Education Topic: Role of OT;Plan of care goals (10/10/24899) Review of Precautions: Safety;Fall (10/10/24899) Alarm Status Patient positioned in: Chair (10/10/24899) With: Pressure pad alarm intact and functioning and call leyva in reach (10/10/24899) Treatment Provided: Therapeutic Activity: 8 minutes Deficits requiring O.T. treatment needs: ADL/self- care;Balance;Endurance;Functional mobility;Safety(10/10/24899) Assessment: Patient alert and oriented while supine in bed with head of bed elevated. Her current functional status for bed mobility is contact guard , transfers minimal assistance and functional ambulation is minimal assistance bed>chair with rolling walker . Their current OT AM PAC is 16. Patient tolerated session well. Patient is seated to chair with pressure pad activated, dysem placed to chair and call leyva in reach. Patient demonstrates deficits in self care, functional mobility, endurance balance and safety. Patient would benefit from continued OT services in order to maximize independence with all aspects of functional mobility and ADL's. Consider post-acute care services which may include home health, care home, outpatient therapy, or inpatient rehab. The level of care will be determined in collaboration with the patient, family/caregiver, and care team members. Plan: to get well Anticipated Frequency (on eval): 2 to 5 times per week (10/10/24899) AM-PAC Help From Another Person Eating Meals: None (10/10/24899) Help From Another Person Taking Care of Personal Grooming: A little (10/10/24899) Help From Another Person To Put On/Take Off Upper Body Clothing: A little (10/10/24899) Help From Another Person To Put On/Take Off Lower Body Clothing: A lot (10/10/24899) Help From Another Person Toileting: A lot (10/10/24899) Help From Another Person Bathing: A lot (10/10/24899) OT AM-PAC Score: 16 (10/10/24899) OT AM-PAC t-Scale Score: 35.96 (10/10/24899) JH HLM (Highest Level of Mobility) Goal: Level 4 move to chair/commode (10/10/24 012) * Care Plan - Karla Hurtado RN - 10/10/2024 4:21 AM EST Clinical Goal(s): pt will remain free from injury during this shift (10/09/24 2300) Possible barriers to meeting goal(s)/advancing plan of care: impaired mobility Stability of the patient: Moderately stable - low risk of patient condition declining or worsening Summary regarding today's goal(s): Met: Recommendations: continue poc * Ancillary Progress Note - Christi Zhao BSW - 10/09/2024 4:01 PM EST CARE MANAGEMENT - ADULT TRANSITION NOTE [facility] [place] [phone] Name: Meera Mcgraw Location: [facility] MS-6[facility]/A Date: 10/09/2024 Time: 4:02 PM Risk Stratification Risk Stratification Psycho Social / Medical Concerns Identified: Adjustment to illness/injury (10/07/241640) Accessed [employer] to connect patients to social care resources: No (10/07/241640) OBRA or OPTIONS needed for placement: No (10/07/241640) Readmission Risk Score: 27.33 (10/09/24 1200) AM-PAC Score With Stairs : 8 (10/09/24 1030) Caregiver Information Emergency Contacts None on File Other Contacts Name Relation Home Work Mobile Franki Mcgraw Adult Child [phone] Avinash Kyle Sibling [phone] Michelle Dc Friend [phone] Transition of Care Checklist Transition of Care Checklist (aka Readmission Risk Score) Discharge Disposition: Home w/Home Health (10/09/241599) Narrative: Pt discussed in IDT. Chart reviewed. Pt is not medically stable for DC. Pt is accepted to [facility]. Cm spoke with pt at bedside. Cm discussed bed offer. Pt is undecided about going to rehab. Prefers to DC home with [facility]. Pt reports family will assist with care. Cm informed Leslie from [place]. Belén from [facility] is updated on pt. Cm will continue to follow. Anticipated Transportation at Discharge: Family. Patient/Family Expectations: . Transition Planning Transition Planning Transition Plan/Considerations: Needs identified - Discharge planning services explained to patientfamily / caregiver - Choices offered (10/09/241599) Transition services explained and patient/family/caregiver agreeable: Prison;Home with Home Care (10/09/241599) Transition planning services explained and patient/family/caregiver agreeable: List of SNFs by [facility] that participate in Medicare programs provided and reviewed with patient and caregiver (10/07/241641) CMS Quality Rating provided to patient: No (10/09/241599) Repisodic Choice provided to patient: No (10/09/241599) Transition plan discussed with - Enter name and phone #: pt (10/09/241599) Insurance Considerations: Therapy documentation needed for precert request (10/09/241599) Referral to Community Agency : N/A (10/07/241641) Post-Acute Care needs identified and Referrals Completed: Occupational Therapy;Physical Therapy (10/09/241599) Agency Choice Due to: Care previously established (10/09/24 1600) Care Management will continue to monitor and assist with discharge planning needs * Ancillary Progress Note - Rosalino Alex, PT - 10/09/2024 10:30 AM EST PROGRESS NOTE - Physical Therapy [facility] [place] [phone] Name: Meera Mcgraw Location: [facility] MS-619/A Date: 10/09/2024 Time: 1030 Meera Mcgraw is a/an 69 year old female. Patient Status: Inpatient Insurance: Payor: MEDICARE Plan: MEDICARE A AND B Product Type: *No Product type* Payor: [employer] [facility]) Plan: [id number] Product Type: *No Product type* Patient Seen: at bedside, nursing cleared patient for therapy Patient Identified By: Name, ID Band and Date Diagnosis: SOB; heart failure (10/09/24 103) Status of treatment: Treatment completed (10/09/24 103) Orders: PT evaluation and treatment (10/09/241029) Weight Bearing Status: Weight bearing as tolerated (10/09/24 103) Precautions: Falls;Safety (10/09/24 103) Total Treatment Time--free text: 24 (10/09/24 103) Pain: No complaints of pain P.T. Bed Mobility Supine-Sit: Moderate Assistance (x2) (10/09/24 103) Sit-Supine: Not Tested (10/09/241029) Transfers Sit-Stand: Minimal Assistance (x2) (10/09/24 103) Stand-Sit: Minimal Assistance (x2) (10/09/24 103) Ambulation: Distance ambulated (feet): 10 Assistive Device: Rolling walker Assist: Minimal Assistance Balance Sit (Static): Poor (10/09/24 103) Sit (Dynamic): Poor (10/09/24 1030) Stand (Static): Fair (10/09/24 103) Stand (Dynamic): Fair (10/09/24 103) Patient and or Family Goal(s): to get well Topic of Education: Safety with mobility, Goals/plan of care, and Use of assistive device Method of Education: Verbal discussion and explanation provided to pt: verbalized understanding andor agreement of this information Treatment Provided: Therapeutic Activities 9 minutes: bed mobility training transfer training Gait Training 15 minutes: gait training with rolling walker Alarm Status Patient positioned in: Chair (10/09/241029) With: Pressure pad alarm intact and functioning and call leyva in reach (10/09/241029) Patient Education Review of Precautions: Safety;Fall (10/09/241029) Safety Awareness: Patient can communicate basic needs (10/09/241029) Preferred learning method: Combination (10/09/241029) Barriers to learning: None (10/09/241029) Method of Education: Verbalized to patient (10/09/241029) Assessment: Pt tolerated session well and was motivated and agreeable to participate. Moderate assist of 2 required for bed mobility tasks. Transfers with minimal assist of 2. Pt ambulating 10 feet with RW and minimal assist. Declining further ambulation. O2 intact via NC. Pt provided with and educated on physitrack HEP. Pt positioned in geneva chair post treatment with pressure pad alarm intact and functioning, call leyva in reach and all needs met. Pt with AM- PAC score of 8; would consider post-acute care services which may include home health, care home, outpatient therapy, or inpatientrehab. The level of care will be determined in collaboration with the patient, family/caregiver, and care team members. Deficits requiring P.T. treatment needs: Safety;Mobility;Balance;Endurance (10/09/241029) Plan: Continue with current treatment plan established on evaluation. AM PAC Score with Stairs: 8 * Ancillary Progress Note - Inocente Diop COTA/Lana - 10/09/2024 10:30 AM EST PROGRESS NOTE - Occupational Therapy [facility] [place] [address] Name: Meera Mcgraw Location: [facility] MS-619/A Date: 10/09/2024 Time: 1030 Meera Mcgraw is a 69 year old female. Patient Status: Inpatient Insurance: Payor: MEDICARE Plan: MEDICARE A AND B Product Type: *No Product type* Payor: [employer] [facility] Plan: im3D [employer] Product Type: *No Product type* Patient Seen: at bedside, nursing cleared patient for therapy Patient Identified By: Name, ID Band and Date Diagnosis: SOB; heart failure (10/09/241029) Status of treatment: Treatment completed (10/09/241029) Orders: OT evaluation and treatment (10/09/241029) Weight Bearing Status: Weight bearing as tolerated (10/09/241029) Precautions: Falls;Safety (10/09/241029) Total Treatment Time: 24 (10/09/241029) Pain: No complaints of pain Observations Consciousness: Alert (10/09/241029) Orientation: Person;Place;Time (10/09/241029) Other Findings Endurance: Sitting tolerance;Standing tolerance;Fair (10/09/241029) Current Functional Status: Activities of Daily Living: Self Care Grooming: Minimal Assistance (10/09/241029) Dressing Upper Body: Minimal Assistance (10/09/241029) Lower Body: Maximal Assistance (10/09/241029) Bathing Upper Body: Minimal Assistance (10/09/241029) Lower Body: Minimal Assistance (10/09/241029) Functional Ambulation Assistive Device: Rolling table (10/09/241029) Distance in feet:: (refer to PT) (10/09/241029) Level of Assistance: Minimal Assistance (x2) (10/09/241029) Bed Mobility Supine-Sit: Minimal Assistance (x2) (10/09/241029) Sit-Supine: Not Tested (10/09/241029) OT Transfers Sit-Stand: Minimal Assistance (x2) (10/09/241029) Stand-Sit: Minimal Assistance (x2) (10/09/241029) Bed-Chair: Minimal Assistance (x2) (10/09/241029) Balance Sit (Static): Fair (10/09/241029) Sit (Dynamic): Fair (10/09/241029) Stand (Static): Fair (10/09/241029) Stand (Dynamic): Fair (10/09/241029) Patient Education Education Topic: Role of OT;Plan of care goals (10/09/241029) Review of Precautions: Safety;Fall (10/09/241029) Alarm Status Patient positioned in: Chair (10/09/241029) With: Pressure pad alarm intact and functioning and call leyva in reach (10/09/241029) Treatment Provided: Therapeutic Activity: 24 minutes Deficits requiring O.T. treatment needs: ADL/self- care;Balance;Endurance;Functional mobility;Safety(10/09/241029) Assessment: Patient alert and oriented while supine in bed with head of bed slightly elevated. Her current functional status for bed mobility is minimal assistance(2) with fair sitting balance , transfers minimal assistance(2) with fair balance and functional ambulation is minimal assistance(2) ~ 10 feet this day with rolling walker . Their current OT AM PAC is 16. Patient tolerated session fairly well. Patient is seated to chair with pressure pad activated, dysem placed to chair and call leyva in reach. Patient demonstrates deficits in self care, functional mobility, endurance balance and safety. Patient would benefit from continued OT services in order to maximize independence with all aspects of functional mobility and ADL's. Consider post-acute care services which may include home health, care home, outpatient therapy, or inpatient rehab. The level of care will be determined in collaboration with the patient, family/caregiver, and care team members. Plan: to get well Anticipated Frequency (on eval): 2 to 5 times per week (10/09/241029) AM-PAC Help From Another Person Eating Meals: None (10/09/241029) Help From Another Person Taking Care of Personal Grooming: A little (10/09/241029) Help From Another Person To Put On/Take Off Upper Body Clothing: A little (10/09/241029) Help From Another Person To Put On/Take Off Lower Body Clothing: A lot (10/09/241029) Help From Another Person Toileting: A lot (10/09/241029) Help From Another Person Bathing: A lot (10/08/241039) OT AM-PAC Score: 16 (10/08/241039) OT AM-PAC t-Scale Score: 35.96 (10/08/24 1040) HLM (Highest Level of Mobility) Goal: Level 3 sit at edge of bed (10/09/24 1030) * Care Plan - Deb Mcpherson RN - 10/09/2024 1:23 AM EST Clinical Goal(s): Maintain safety this shift. (10/08/241999) Possible barriers to meeting goal(s)/advancing plan of care: weakness Stability of the patient: Moderately stable - low risk of patient condition declining or worsening Summary regarding today's goal(s): Met: No falls or injuries this shift Recommendations: Continue current treatment plan. * Ancillary Progress Note - Manish Welsh BSW - 10/08/2024 2:38 PM EST CARE MANAGEMENT - ADULT TRANSITION NOTE [facility]-[address] [address] Name: Meera Mcgraw Location: [facility] MS-619/A Date: 10/08/2024 Time: 2:38 PM Risk Stratification Risk Stratification Psycho Social / Medical Concerns Identified: Adjustment to illness/injury (10/07/241640) Accessed Neighborly to connect patients to social care resources: No (10/07/241640) OBRA or OPTIONS needed for placement: No (10/07/241640) Readmission Risk Score: 26.99 (10/08/24 1200) AM-PAC Score With Stairs : 10 (10/08/24 0800) Caregiver Information Emergency Contacts None on File Other Contacts Name Relation Home Work Mobile Franki Mcgraw Adult Child [phone] ChrisstevansandraAvinash richard Sibling [phone] Michelle Dc Friend [phone] Transition of Care Checklist Transition of Care Checklist (aka Readmission Risk Score) Discharge Disposition: Post-Acute (10/07/241641) Narrative: Chart reviewed. Pt discussed in IDT. Pt is not stable for DC this date per Dr. Yañez. Pt's plan is SNF when stable. JESSICA<[facility] CM spoke with brother Avinash who is reviewing choices with pt at bedside today. Negative Assembler provided emotional support. Care management department will continue to follow for additional needs and services while patient remains inpatient. Anticipated Transportation at Discharge: Medical vs Family Patient/Family Expectations: SNF Transition Planning Transition Planning Transition Plan/Considerations: Discussed at Interdisciplinary Team / Boost Rounds;Needs identified- Discharge planning services explained to patient family / caregiver - Choices offered (10/07/241641) Transition services explained and patient/family/caregiver agreeable: Prison (10/07/241641) Transition planning services explained and patient/family/caregiver agreeable: List of SNFs by [facility] that participate in Medicare programs provided and reviewed with patient and caregiver (10/07/241641) [facility] Quality Rating provided to patient: Yes (10/07/241641) Repisodic Choice provided to patient: Yes (10/07/241641) Transition plan discussed with - Enter name and phone #: patient, brother (10/07/241641) Insurance Considerations: N/A (10/07/241641) Referral to Community Agency : N/A (10/07/241641) Post-Acute Care needs identified and Referrals Completed: Occupational Therapy;Physical Therapy (10/07/241641) Additional Considerations: N/A Care Management will continue to monitor and assist with discharge planning needs * Ancillary Progress Note - Inocente Diop COTA/L - 10/08/2024 10:40 AM EST PROGRESS NOTE - Occupational Therapy [facility]-[address] [place] [address] Name: Meera Mcgraw Location: [facility] MS-619/A Date: 10/08/2024 Time: 1040 Meera Mcgraw is a 69 year old female. Patient Status: Inpatient Insurance: Payor: MEDICARE Plan: MEDICARE A AND B Product Type: *No Product type* Payor: [employer] [place] [facility]) Plan: [facility] [employer] Product Type: *No Product type* Patient Seen: at bedside, nursing cleared patient for therapy Patient Identified By: Name, ID Band and Date Diagnosis: SOB; heart failure (10/08/241039) Status of treatment: Treatment completed (10/08/241039) Orders: OT evaluation and treatment (10/08/241039) Weight Bearing Status: Weight bearing as tolerated (10/08/241039) Precautions: Falls;Safety (10/08/241039) Total Treatment Time: 28 (10/08/241039) Pain: No complaints of pain Observations Consciousness: Alert (10/08/241039) Orientation: Person;Place;Time (10/08/241039) Other Findings Endurance: Sitting tolerance;Standing tolerance;Fair (10/08/241039) Current Functional Status: Activities of Daily Living: Self Care Grooming: Minimal Assistance (10/08/241039) Dressing Upper Body: Minimal Assistance (10/08/241039) Lower Body: Maximal Assistance (10/08/241039) Bathing Upper Body: Minimal Assistance (10/08/241039) Lower Body: Minimal Assistance (10/08/241039) Functional Ambulation Assistive Device: Rolling walker (10/08/241039) Distance in feet:: (refer to PT) (10/08/241039) Level of Assistance: Minimal Assistance (x2) (10/08/241039) Bed Mobility Supine-Sit: Minimal Assistance (X2) (10/08/241039) Sit-Supine: Not Tested (10/08/241039) OT Transfers Sit-Stand: Minimal Assistance (X2) (10/08/241039) Stand-Sit: Minimal Assistance (x2) (10/08/241039) Bed-Chair: Minimal Assistance (x2) (10/08/241039) Balance Sit (Static): Fair (10/08/241039) Sit (Dynamic): Fair (10/08/241039) Stand (Static): Poor (10/08/241039) Stand (Dynamic): Poor (10/08/241039) Patient Education Education Topic: Role of OT;Plan of care goals (10/08/241039) Review of Precautions: Safety;Fall (10/08/241039) Alarm Status Patient positioned in: Bed (10/08/241039) With: Bed alarm intact and functioning and call leyva in reach (10/08/241039) Treatment Provided: Therapeutic Activity: 28 minutes Deficits requiring O.T. treatment needs: ADL/self- care;Balance;Endurance;Functional mobility;Safety(10/08/241039) Assessment: Patient alert and oriented to person., place and time while supine in bed with head of bed slightly elevated. Her current functional status for bed mobility is minimal assistance(2) with fair sitting balance , transfers minimal assistance(2) with rolling walker with fair balance and functional ambulation is minimal assistance(2) with rolling walker with poor dynamic balance . Their current OT AM PAC is 16. Patient tolerated session fairly well. Patient is seated to chair with pressure pad activated, dysem placed to chair and call leyva in reach. Patient demonstrates deficits in self care, functional mobility, endurance balance and safety. Patient would benefit from continued OT services in order to maximize independence with all aspects of functional mobility and ADL's. Consider post-acute care services which may include home health, care home, outpatient therapy, or inpatient rehab. The level of care will be determined in collaboration with the patient, family/caregiver, and care team members. Plan: to get well Anticipated Frequency (on eval): 2 to 5 times per week (10/08/241039) AM-PAC Help From Another Person Eating Meals: None (10/08/241039) Help From Another Person Taking Care of Personal Grooming: A little (10/08/241039) Help From Another Person To Put On/Take Off Upper Body Clothing: A little (10/08/241039) Help From Another Person To Put On/Take Off Lower Body Clothing: A lot (10/08/241039) Help From Another Person Toileting: A lot (10/08/241039) Help From Another Person Bathing: A lot (10/08/241039) OT AM-PAC Score: 16 (10/08/241039) OT AM-PAC t-Scale Score: 35.96 (10/08/241039) HLM (Highest Level of Mobility) Goal: Level 4 move to chair/commode (10/08/24 0800) * Ancillary Progress Note - Zoran Izquierdo - 10/08/2024 10:40 AM EST PROGRESS NOTE - Physical Therapy [facility]-[address] [place] [address] Name: Meera Mcgraw Location: [facility] MS-619/A Date: 10/08/2024 Time: 1040 Meera Mcgraw is a/an 69 year old female. Patient Status: Inpatient Insurance: Payor: MEDICARE Plan: MEDICARE A AND B Product Type: *No Product type* Payor: [employer] [facility] Plan: [employer] Product Type: *No Product type* Patient Seen: at bedside, nursing cleared patient for therapy Patient Identified By: Name, ID Band and Date Diagnosis: SOB; heart failure (10/06/24924) Status of treatment: Treatment completed (10/08/24 104) Orders: PT evaluation and treatment (10/06/24924) Weight Bearing Status: Weight bearing as tolerated (10/08/24 104) Precautions: Falls;Safety (10/08/24 104) Total Treatment Time--free text: 28 mins (10/08/24 104) Pain: No complaints of pain P.T. Bed Mobility Supine-Sit: Minimal Assistance (x2) (10/08/24 104) Sit-Supine: Minimal Assistance (x2) (10/08/24 104) Transfers Sit-Stand: Minimal Assistance (x2) (10/08/24 104) Stand-Sit: Minimal Assistance (x2) (10/08/24 104) Ambulation: Distance ambulated (feet): 5 feet Assistive Device: Rolling walker Assist: Minimal Assistance x2 Stair Training: NT due to patient's low tolerance/endurance Balance Sit (Static): Fair (10/08/24 104) Sit (Dynamic): Fair (10/08/24 104) Stand (Static): Poor (10/08/24 104) Stand (Dynamic): Poor (10/08/24 104) Patient and or Family Goal(s): to get well Topic of Education: Safety with mobility, Use of assistive device, Fall prevention, and bed mobility, transfer training Method of Education: Verbal discussion and explanation provided to patient: verbalized understanding and or agreement of this information and demonstrated the exercise and or task Demonstrated the above task to patient: verbalized understanding and or agreement of this information and demonstrated the exercise and or task Treatment Provided: Therapeutic Activities 20 minutes: bed mobility training transfer training automobile body repairer training Gait Training 8 minutes: gait training with rolling walker Alarm Status Patient positioned in: Bed (10/08/241039) With: Bed alarm intact and functioning and call leyva in reach (10/08/241039) Patient Education Review of Precautions: Safety;Fall (10/08/241039) Safety Awareness: Patient can communicate basic needs (10/08/241039) Preferred learning method: Combination (10/08/241039) Barriers to learning: None (10/08/241039) Method of Education: Verbalized to patient (10/08/241039) Assessment: Patient tolerated session fair. Patient presents with deficits in bed mobility, transfers, ambulation, see details above. Patient alert and following commands/directions. Physical TherapyAM-PAC score 14; would consider post-acute care services which may include home health, outpatient therapy, inpatient rehab or care home. The level of care will be determined in collaboration with the patient, family/caregiver, and care team members. Patient demonstrates deficits in overall strength, balance, endurance and functional mobility. Patient would benefit from continued PT services during hospital stay in order to maximize independence with all aspects of functional mobility. Deficits requiring P.T. treatment needs: Safety;Mobility;Balance;Endurance (10/08/241039) Plan: Continue with current treatment plan established on evaluation. AM PAC Score with Stairs: 14 * Care Plan - Patricia Sullivan RN - 10/08/2024 6:43 AM EST Clinical Goal(s): Pt safety will be maintained (10/08/24 0000) Possible barriers to meeting goal(s)/advancing plan of care: Impaired mobility Stability of the patient: Moderately stable - low risk of patient condition declining or worsening Summary regarding today's goal(s): Met: Pt remained free from a fall/injury this shift Recommendations: Maintain fall preventive measures * Ancillary Progress Note - Ivonne Cazares, ELLEN - 10/08/2024 12:06 AM EST Patient refusing noct niv; machine on standby in room; pt was told to let nursing know if she changes her mind and wants to wear it & we can put her on. * Ancillary Progress Note - Cady Colon LSW - 10/07/2024 4:43 PM EST CARE MANAGEMENT - ADULT INITIAL SCREENING [address] [address] Name: Meera Mcgraw Location: [facility] IPA Date: 10/07/2024 Time: 4:43 PM Discussed patient with the interdisciplinary care team. This Negative Assembler performed a chart review and met with patient at bedside to complete admission screen and assessed needs for transition planning. The complex care nurse role and services were explained and emotional support was provided. Chief Complaint: Infection (Bilateral leg wounds) Prior Living Arrangements What was your living situation prior to admission/observation?: With Spouse;With Child (10/07/241640) Living Quarters: House (10/07/241640) Number of steps to enter living quarters:: ramp (10/07/241640) Do you have serious difficulty walking or climbing stairs? (5 years old or older): Yes (10/03/241947) History of falling: No (10/07/24799) Prior Level of Functioning Describe the patient's ability prior to admission/observation to perform ADLs: Requires assistance (10/07/241640) Requires assistance with: Dressing;Toileting;Bathing (10/07/241640) Describe the patient's mobility status prior to admission: Patient requires assistance with ambulation (10/07/241640) Patient uses assistive device: Yes (10/07/241640) If yes, choose:: Walker;Wheelchair (10/07/241640) Caregiver Information Emergency Contacts None on File Other Contacts Name Relation Home Work Mobile Franki Mcgraw Adult Child [phone] Avinash Kyle Sibling [phone] Michelle Dc Friend [phone] Risk Stratification/Psychosocial/Care Gaps Risk Stratification Psycho Social / Medical Concerns Identified: Adjustment to illness/injury (10/07/241640) Accessed Neighborly to connect patients to social care resources: No (10/07/241640) OBRA or OPTIONS needed for placement: No (10/07/241640) Readmission Risk Score: 26.7 (10/07/24 160) AM-PAC Score With Stairs : 10 (10/07/24 0800) Prior to Admission Services Services Prior to Admission CITY [employer]AX [employer]UDITOR Services (Services received within the last 30 days with exception, Psych within last two years): Durable Medical Equipment (10/07/241640) [employer] Durable Medical Equipment (DME) in home: Wheelchair standard;Walker Rolling;CPAP/BiPAP/Home Vent;Oxygen (name) - Comment (10/07/241640) DME Name: [employer] (10/07/241640) [place] Dept. of Aging (PDA) Waiver Program: N/A (10/07/241640) [employer] TAX AUDITOR Transportation (Services received within the last 30 days): Family/Friends Personal Vehicle (10/07/241640) Outpatient Negative Assembler: No care pilot steam yacht to display Patient/Family Expectations: Patient lives with son Franki, spouse Paco, brother Avinash, and grandchildren in a 1 story house with ramp. DME- WC, RW, O2 2L [employer], BIPAP. Active with [employer]. Patient agreeable to SNF placement. Repisodic SNF list given to patient and texted to brother Avinash French. Brother will go over choices with patient. Agreeable to [facility] and [facility] at this time. For further screening information, please refer to the Care Management flow document. * Ancillary Progress Note - Leonora Chadwick RDN - 10/07/2024 12:14 PM EST CLINICAL NUTRITION ADULT RISK ASSESSMENT [address] [place] [address] Name: Meera Mcgraw Location: [facility] IP-03/A Date: 10/07/2024 Time: 12:15 PM How patient was identified (select 2): date and Name Meera Mcgraw is a 69 year old female being assessed for clinical nutrition risk related to skinbreakdown Primary diagnosis: Acute hypercapnic and hypoxic respiratory failure possibly secondary to CHF exacerbation/less likely COPD exacerbation. Anthropometrics Measurements Admission weight (for dietitians): 112 kg (247 lb) Height: 162.6 cm (5' 4") (10/04/241646) Weight: 117.4 kg (258 lb 13.1 oz) (10/04/241646) BMI: 44.4 (10/04/241646) Usual Body Weight or EDW for Dialysis Patients: Wt Readings from Last 50 Encounters: 10/04/24 117.4 kg (258 lb 13.1 oz) 06/17/24 113.9 kg (251 lb) 06/09/24 115 kg (253 lb 9 oz) 06/04/24 115.7 kg (255 lb) 06/02/24 117.6 kg (259 lb 4.8 oz) 05/08/24 118.3 kg (260 lb 14.4 oz) 04/24/24 128.5 kg (283 lb 3.2 oz) 01/30/24 116.6 kg (257 lb) 01/16/24 114.3 kg (252 lb) 01/09/24 116.6 kg (257 lb) 01/09/24 116.6 kg (257 lb) 12/26/23 110 kg (242 lb 6.4 oz) 12/18/23 109.5 kg (241 lb 8 oz) 10/26/23 113.3 kg (249 lb 12.8 oz) Diet: 4 Choices (60 gm) Consistent Carbohydrate Heart Healthy, 2 gm Sodium Previously followed diet: no diet indicated. Food Allergies/Intolerances: None noted. Oral Nutrition Supplement (ONS): None. Pertinent medications/vitamins/minerals/supplements: Novolog, Lasix 40 IV BID, Lantus, Vitamin D3, Vitamin B12, Prilosec RISK FACTORS: Adult Energy Intake: No significant decrease, eating 75-100% of meals documented. Patient states she does not like the food. Encouraged patient to order meals with Diet office. Interpretation of Weight Change: Change likely secondary to fluid - patient being diuresed. Skin: Compromise without nutrition-related implications Per Podiatry note: "superficial ulcer to the RLE, bilateral lower extremity cellulitis and chronic venous stasis changes to bilateral lower extremities. " + Scabies NUTRITION RISK CATEGORY: Nutrition Risk Category: Low/Moderate (0-1 factors) Clinical Nutrition Recommendations: Diet: Continue current nutrition plan NUTRITION INTERVENTION/PLAN: Orders: Oral nutrition supplement added Liquacel (1 oz, 100 calories, 16 grams protein, 20 mg phosphorus, 10 mg potassium) BID Will follow and adjust nutritional plan as medical condition requires. Please contact for change(s)in patient condition requiring earlier intervention. * Care Plan - Aminah De RN - 10/07/2024 4:25 AM EST Clinical Goal(s): SpO2 >90% (10/07/24 0000) Possible barriers to meeting goal(s)/advancing plan of care: pt diagnosis Stability of the patient: Moderately stable - low risk of patient condition declining or worsening Summary regarding today's goal(s): Met: SpO2 maintained >90% during shift Recommendations: Continue plan of care * Care Plan - Katja Hernandez RN - 10/06/2024 2:04 PM EST Clinical Goal(s): patient will maintain SpO2>90 throughout shift. (10/06/24 0800) Possible barriers to meeting goal(s)/advancing plan of care: admitting diagnosis, past medical history Stability of the patient: Moderately stable - low risk of patient condition declining or worsening Summary regarding today's goal(s): Met: Patient maintained SpO2>90 throughout shift. Recommendations: Continue close monitoring of patient's respiratory status. Titrate supplemental oxygen as necessary to maintain SpO2>90. Encourage Bipap as often as possible. * Ancillary Progress Note - Manish Weslh BSW - 10/06/2024 1:58 PM EST CM attempted to reach pt for assessment via room phone. No answer. Attempted cell phone and left VMrequesting return phone call. Also attempted to reach fidencio Doan. Phone rang before going to busy signal. Unable to leave VM. * Ancillary Progress Note - Fermin Spears RRT - 10/05/2024 6:11 PM EST PATIENT DRIVEN PROTOCOL - Respiratory Care Services [address] [place] [address] Name: Meera Mcgraw Location: [facility] IP-03/A Date: 10/05/2024 Time: 6:11 PM Patient Driven Protocol Summary: Re-evaluation . This Treatment Plan and medications will be reviewed by the Primary Care Team for any contraindications. Respiratory Care Treatment Plan Aerosol Therapy Treatment:: Hand Held Nebulizer Tx PRN with Albuterol Sulfate: Unit dose 0.083%. to reduce work of breathing and improve pulmonary gas exchange. . Pulmonary Volume Expansion Therapy: Incentive Spirometry PRN to prevent or treat alveolar consolidation and atelectasis. . Secretion Management Treatment: Flutter TherapyPRN to enhance mobilization of secretions. . The patient will be re-evaluated: No re-evaluation needed. Indications for treatment met. The Triage Level is: (Assessment Score = 6 -10) Level 4. Triage Level Definitions: Level 1 Severe Respiratory/Airway Compromise Level 2 Moderate Respiratory/Airway Compromise or high risk for pulmonary complications Level 3 Mild Respiratory/Airway Compromise or moderate risk for pulmonary complications Level 4 Episodic Respiratory/Airway Compromise or low risk for pulmonary complications Level 5 No Respiratory/Airway Compromise Triage 1 Triage 2 Triage 3 Triage 4 Triage 5 greater than 20 16 - 20 11 - 15 6 - 10 0 - 5 Medical Record Assessment Clinical Findings Pulmonary Status: 3 - Pulm Impairment (acute or chronic) w/o exacerbation, or 1 - 2 rib fractures Surgical Status: 0 - No Surgical History Chest X-Ray: 0 - Clear Assessment Score: 3 Patient Assessment Clinical Findings Respiratory Pattern: 0 - RR 12 - 20; Patient only gets breathless with strenuous exercise. Breath Sounds: 2 - Diminished bilaterally Cough Effectiveness: 0 - Strong non-productive Sputum Production: 0 - No sputum production Level of Activity: 0 - Ambulatory O2 needed to keep SpO2 greater than or equal to 92%: 4 - Oxygen 100% or NIV/HFNC Assessment Score: 6 Total Assessment Score: 9 Breath Sounds: Expiratory diminished bilaterally.. Cough and Sputum: An effective cough produced no sputum... CXR: Cardiomediastinal silhouette is normal. No consolidation, mass, pneumothorax, or pleural effusion. Vascular congestion. . Vital Signs: Resp: 16 (10/05/24 1700) Pulse: 60 (10/05/24 170) Temp: 36.6 °C (97.9 °F) (10/05/24 1600) BP: 131/58 (10/05/24 1700) SpO2: 96 % (10/05/24 170) Primary Service: Hospitalist A. Admitting Diagnosis: SOB (shortness of breath) [R06.02] Pulmonary Diagnosis: COPD. Prescriptions/Home Medications/Durable Medical Equipment: Albuterol PRN. * Ancillary Progress Note - Claudia Mims RDMS - 10/05/2024 2:23 PM EST PRELIMINARY RESULTS NOTE - Vascular Lab [facility] [address] Name: Meera Mcgraw Location: [facility] IP-A Date: 10/05/2024 Time: 2:23 PM Vascular Venous Duplex Lower Extremity Bilateral - Negative for DVT * Care Plan - Britney Pierre RN - 10/04/2024 4:47 PM EST Clinical Goal(s): Patient will be free from falls (10/04/24 0800) Possible barriers to meeting goal(s)/advancing plan of care: none Stability of the patient: Moderately stable - low risk of patient condition declining or worsening Summary regarding today's goal(s): Met: yes Recommendations: Continue with the plan of care * Communication - Marion Carvajal CRNP - 10/04/2024 12:27 PM EST Avinash Kyle brother updated via telephone. * Care Plan - Karla Hurtado RN - 10/04/2024 5:20 AM EST Clinical Goal(s): pt pain and discomfort will be managable during this shift (10/03/24 2300) Possible barriers to meeting goal(s)/advancing plan of care: BLE wounds Stability of the patient: Moderately stable - low risk of patient condition declining or worsening Summary regarding today's goal(s): Met: Recommendations: continue poc * Communication - Oswaldo Mack RN - 10/03/2024 6:29 PM EST Hand-Off - Nurse Communication Note Name: Meera Mcgraw Location: Date: 10/03/2024 Time: 6:29 PM Sending to: OBSERVATION Safety Concerns: None Allergies: Patient has no known allergies. Code Status: Full Code Isolation: contact Isolation flowsheet: Special Needs: Special Needs comments: Attention to: NURSE Report from: Oswaldo Alejo RN Phone extension: [phone] Patient arriving via: Stretcher Reason for SBAR handoff: Admission Situation/Background Admission date: 10/02/2024 Patient Service: Hospitalist A [[id number]] Attending Provider: Usha Harden MD Admitting diagnosis: SOB (shortness of breath) Chief Complaint: Infection (Bilateral leg wounds) Problem list: Principal Problem: Heart failure, systolic and diastolic, acute on chronic ([facility]) Active Problems: Restless leg syndrome SLEEP APNEA, UNSPECIFIED Major depressive disorder Dyslipidemia, goal LDL below 100 HTN, goal below 140/90 SOB (shortness of breath) Type 2 diabetes mellitus with diabetic polyneuropathy, with long-term current use of insulin ([facility]) BMI 40.0-44.9, adult ([facility]) COPD, group C, by GOLD 2017 classification ([facility]) Venous stasis ulcers of both lower extremities ([facility]) Resolved Problems: * No resolved hospital problems. * Level of Care: Med Surg [3] Assessment Vital Signs: BP: 120/59 (10/03/241799) Temp: 36.9 °C (98.4 °F) (10/02/242099) Pulse: 67 (10/03/241799) Resp: 12 (10/03/241799) SpO2: 85 % (10/03/241799) Glucose (Bedside): 149 (10/03/24 0800) Weight: 112 kg (247 lb) (10/02/241799) Fall Scale: Fall Score: 60 (10/03/24399) Fall Interventions: Bed at low level;Yellow armband applied/intact and on patient;Floor free of clutter;Non-skid foot covering on;Walk path free of obstacles (10/03/24399) Neurological: Neuro WNL: WNL - within normal limits (10/03/24399) Jaleel Coma Scale - For patients greater than two years old Eyes Open: Spontaneous (10/03/24399) Best Verbal Response: Verbally appropriate for age (10/03/24399) Best Motor Response: Obeys commands appropriate for age (10/03/24399) Coma Score: 15 (10/03/24399) Additional Neurological Information: Respiratory: Respiratory WNL: WNL- within normal limits (10/03/24399) Oxygen therapy/ Mechanical vent Supplemental O2 Delivery: Nasal Cannula (10/03/241799) O2 flow rate: 6 L/MIN (10/03/24 1520) O2 flow rate: 6 L/MIN (10/03/24 1520) Additional Respiratory Information: Cardiac: Cardiovascular WNL: WNL - within normal limits (10/03/24399) Extremities: +Sensation;Right;Left;Upper;Lower;[place];Warm (10/03/24399) Pulses Right: Dorsalis Pedis +;Radial +;Palpable (10/03/24399) Pulses Left: Dorsalis Pedis +;Radial +;Palpable (10/03/24399) Edema Location: Lower extremities;Both (10/03/24399) Edema Assessment: +2 - Description (10/03/24399) Capillary Refill: 1-2 seconds (10/02/24 1800) Additional Cardiac Information: GI/: GI WNL: WNL - within normal limits (10/03/24399) Abdomen: Soft;Non-distended;Non-tender;Bowel sounds present all quadrants (10/03/24399) WNL: WNL - within normal limits (10/03/24399) Additional GI/ Information: Integumentary: Skin Description: Dry;Warm (10/03/24399) Skin Color: Flesh Tone;Mucus Membranes [place];Nail beds pink (10/03/24399) Skin Variations: Other - Describe (10/03/24399) Additional Integumentary Information: C-Diff: Has the patient had 3 or more loose stools in the last 24 hours?: No (10/02/240) Restraints: No orders of the defined types were placed in this encounter. Lines: Peripheral Line Left;Lower;Anterior Arm 22 Gauge (Active) Number of days: 154 Labs: Labs This Encounter BNP, NT-PRO - Abnormal; Notable for the following components: Result Value Ref Range BNP, NT-Pro 5,502 <300 pg/mL All other components within normal limits Narrative: Exclude Heart Failure: <300 pg/mL Diagnose Heart Failure: Age <50 yr: >450 pg/mL 50-75 yr: >900 pg/mL >75 yr: >1800 pg/mL GFR is 30-59 mL/min: >1200 pg/mL or Age-adjusted values GFR <30 mL/min: do not use, not reliable Prognostic threshold: 1000 pg/mL COMPREHENSIVE METABOLIC PANEL - Abnormal; Notable for the following components: BUN 35 6 - 20 mg/dL CREATININE 1.4 0.5 - 1.0 mg/dL EGFR 43 >=60 mL/min GLUCOSE 259 70 - 120 mg/dL Albumin 3.5 3.8 - 5.0 g/dL ALT 5 10 - 35 U/L All other components within normal limits TROPONIN T, HIGH SENSITIVITY - Abnormal; Notable for the following components: Troponin T, High Sensitivity 77 <=14 ng/L All other components within normal limits URINALYSIS, REFLEX TO CULTURE - Abnormal; Notable for the following components: Clarity, Urine Slightly Cloudy Clear Glucose, Urine 250 Negative mg/dL Protein, Urine Trace Negative mg/dL Esterase, Urine Large Negative RBC, Urine 6-9 0 - 2 /HPF WBC, Urine 30-49 0 - 2 /HPF Hyaline, Cast, Urine 5-9 None /LPF All other components within normal limits CBC - Abnormal; Notable for the following components: HGB 11.9 12.0 - 15.3 g/dL All other components within normal limits DIFFERENTIAL, AUTOMATED - Abnormal; Notable for the following components: Neutrophils % 85.7 40.0 - 75.0 % Lymphocytes % 5.8 18.0 - 42.0 % Absolute Neutrophils 8.97 1.80 - 7.70 K/uL Absolute Lymphocytes 0.61 1.00 - 4.80 K/ul All other components within normal limits TROPONIN T, HIGH SENSITIVITY - Abnormal; Notable for the following components: Troponin T, High Sensitivity 72 <=14 ng/L All other components within normal limits CBC - Abnormal; Notable for the following components: WBC 11.44 4.00 - 10.80 K/uL HGB 11.8 12.0 - 15.3 g/dL All other components within normal limits BASIC METABOLIC PANEL - Abnormal; Notable for the following components: BUN 38 6 - 20 mg/dL CREATININE 1.5 0.5 - 1.0 mg/dL EGFR 39 >=60 mL/min POTASSIUM 5.2 3.5 - 5.1 mmol/L GLUCOSE 237 70 - 120 mg/dL All other components within normal limits HEMOGLOBIN A1C - Abnormal; Notable for the following components: Hemoglobin A1C 8.2 4.0 - 5.6 % Estimated Average Glucose 189 <126 mg/dL All other components within normal limits GLUCOSE METER, POINT OF CARE - Abnormal; Notable for the following components: GLUCOSE - POCT 229 70 - 120 mg/dL All other components within normal limits GLUCOSE METER, POINT OF CARE - Abnormal; Notable for the following components: GLUCOSE - POCT 149 70 - 120 mg/dL All other components within normal limits GLUCOSE METER, POINT OF CARE - Abnormal; Notable for the following components: GLUCOSE - POCT 197 70 - 120 mg/dL All other components within normal limits GLUCOSE METER, POINT OF CARE - Abnormal; Notable for the following components: GLUCOSE - POCT 163 70 - 120 mg/dL All other components within normal limits LIPASE - Normal MRSA SCREEN, PCR - Normal MAGNESIUM - Normal PHOSPHORUS - Normal URINALYSIS, REFLEX TO CULTURE (NOT FOR NEUTROPENIC PATIENTS) Narrative: The following orders were created for panel order URINALYSIS, REFLEX TO CULTURE (NOT FOR NEUTROPENIC PATIENTS). Procedure Abnormality Status --------- ------ URINALYSIS, REFLEX TO CU...[[id number]] Final result URINALYSIS, REFLEX TO CU...[[id number]] Abnormal Final result Please view results for these tests on the individual orders. CBC WITH WBC DIFFERENTIAL Narrative: The following orders were created for panel order CBC WITH WBC DIFFERENTIAL. Procedure Abnormality Status --------- ------ CBC[[id number]] Abnormal Final result DIFFERENTIAL, AUTOMATED[[id number]] Abnormal Final result Please view results for these tests on the individual orders. URINALYSIS, REFLEX TO CULTURE (CUP ONLY) CULTURE, URINE, QUANTITATIVE GLUCOSE METER, POINT OF CARE (COMMUNICATION ORDER) GLUCOSE METER, POINT OF CARE (COMMUNICATION ORDER) GLUCOSE METER, POINT OF CARE (COMMUNICATION ORDER) GLUCOSE METER, POINT OF CARE (COMMUNICATION ORDER) GLUCOSE METER, POINT OF CARE (COMMUNICATION ORDER) GLUCOSE METER, POINT OF CARE (COMMUNICATION ORDER) GLUCOSE METER, POINT OF CARE (COMMUNICATION ORDER) GLUCOSE METER, POINT OF CARE (COMMUNICATION ORDER) Diet: Orders Placed This Encounter Procedures Heart Healthy Diet : Sodium: 2 gm --- Fluid Restriction (ml): 2000 Additional Diet Information: Intake and Output: Intake/Output Summary (Last 24 hours) at 10/03/2024 1828 Last data filed at 10/03/2024 0500 Gross per 24 hour Intake -- Output 300 ml Net -300 ml Patient Belongings and Home Medications Patient Belongings at Bedside Belongings at Bedside: None (10/02/242310) Patient Belongings Sent Home (Does not apply to Ambulatory areas) Belongings Sent Home: None (10/02/242310) Patient Belongings Sent to Safe/Locker Belongings Sent to Safe: None (10/02/242310) Patient Medications Medications Brought by Patient?: No (10/02/242310) Recommendations/Follow up Goals/Plan of Care: Consults not completed: Anticipated tests/studies/procedures: Medication Reconcilliation completed for this Admission? Yes * Medical Necessity - Angeli Torrez RN - 10/03/2024 5:01 PM EST AdmissionCare Guideline: Chronic Obstructive Pulmonary Disease (COPD), Inpatient Based on the indications selected for the patient, the bed status of Inpatient was determined to beMET The following indications were selected as present at the time of evaluation of the patient: - Clinical Indications for Admission to Inpatient Care - Admission is indicated for 1 or more of the following: - Severe hypoxemia (PaO2 less than 55 mm Hg (7.3 kPa) despite inspired oxygen (FiO2) greater than 40%) Additional Information: required lasix 60 mg IV, Oxygen at 6L/Min AdmissionCare documentation entered by: Angeli Torrez [facility], 28th edition, Copyright © 2023 [facility] [employer] [facility] All Rights Reserved. [id number]:01:11-05:00 Solely for purpose of utilization review and payment; not a diagnostic tool * Respiratory Progress Note - Ophelia Galindo RRT - 10/03/2024 12:27 AM EST PATIENT DRIVEN PROTOCOL - Respiratory Care Services [address] [place] [address] Name: Meera Mcgraw Location: A Date: 10/03/2024 Time: 12:27 AM Patient Driven Protocol Summary: Initial evaluation performed. This Treatment Plan and medications will be reviewed by the Primary Care Team for any contraindications. Respiratory Care Treatment Plan Aerosol Therapy Treatment:: Hand Held Nebulizer Tx PRN with Albuterol Sulfate: Unit dose 0.083%. to reduce work of breathing and improve pulmonary gas exchange. . The patient will be re-evaluated: No re-evaluation needed. Indications for treatment met. The Triage Level is: (Assessment Score = 6 -10) Level 4. Triage Level Definitions: Level 1 Severe Respiratory/Airway Compromise Level 2 Moderate Respiratory/Airway Compromise or high risk for pulmonary complications Level 3 Mild Respiratory/Airway Compromise or moderate risk for pulmonary complications Level 4 Episodic Respiratory/Airway Compromise or low risk for pulmonary complications Level 5 No Respiratory/Airway Compromise Triage 1 Triage 2 Triage 3 Triage 4 Triage 5 greater than 20 16 - 20 11 - 15 6 - 10 0 - 5 Medical Record Assessment Clinical Findings Pulmonary Status: 3 - Pulm Impairment (acute or chronic) w/o exacerbation, or 1 - 2 rib fractures Surgical Status: 0 - No Surgical History Chest X-Ray: 1 - Chronic Changes or CHF Assessment Score: 4 Patient Assessment Clinical Findings Respiratory Pattern: 1 - RR 21 - 25; Patient gets short of breath when hurrying on level ground or walking up a slight hill. Breath Sounds: 2 - Diminished bilaterally Cough Effectiveness: 0 - Strong non-productive Sputum Production: 0 - No sputum production Level of Activity: 1 - Ambulatory with assist O2 needed to keep SpO2 greater than or equal to 92%: 1 - Oxygen 1-3 LPM or FiO2 less than 35% Assessment Score: 5 Total Assessment Score: 9 Breath Sounds: Inspiratory and expiratory clear and diminished bilaterally.. Cough and Sputum: No cough was present.. CXR: Vascular congestion Vital Signs: Resp: 18 (10/02/242099) Pulse: 65 (10/02/242099) Temp: 36.9 °C (98.4 °F) (10/02/242099) BP: 148/71 (10/02/242099) SpO2: 100 % (10/02/24 2300) Primary Service: Hospitalist A. Admitting Diagnosis: SOB (shortness of breath) [R06.02] Pulmonary Diagnosis: COPD. Prescriptions/Home Medications/Durable Medical Equipment: albuterol prn * Medical Necessity - Chaim Villalpando, Utilization Review Staff - 10/02/2024 10:13 PM EST AdmissionCare Guideline: General Observation, Observation Based on the indications selected for the patient, the bed status of Observation was determined to be MET The following indications were selected as present at the time of evaluation of the patient: - Observation Care Admission Criteria - Observation care is indicated for ALL of the following: - Clinical care needed is not appropriate for lower level of care (ie, discharge to outpatient setting not appropriate). - Clinical care (eg, testing, monitoring, or treatment) needed beyond usual emergency department time frame (eg, 3 to 4 hours) - Patient has clinical condition for which observation care is needed, as indicated by 1 or more ofthe following: - Cardiac condition or finding (eg, Hypotension,Tachycardia, Orthostatic hypotension, Bradycardia, cardiac conduction abnormality, cardiac valve disorder, pericardial effusion, need for telemetry monitoring, evaluation or adjustment of cardiac device) Additional Information: Infection (Bilateral leg wounds) SOB troponin 77 BNP 5,502 AdmissionCare documentation entered by: Chaim Villalpando [facility], 28th edition, Copyright © 2023 [facility] All Rights Reserved. [id number]:13:22-05:00 Solely for purpose of utilization review and payment; not a diagnostic tool documented in this encounter Plan of Treatment Upcoming Encounters Date Type Department Care Team (Late st Contact Info) Description 10/13/2024 3:30 PM EST Office Visit Pulmonary Medicine [facility] Karen [facility] [address] [facility] [place] [address] Johanny Hutton CRNP [address] [place] [address] 10/14/2024 2:00 PM EST Office Visit Wound Care Angie Teran [address] [address] Paul Peng DO [address] [address] 10/28/2024 1:30 PM EST Office Visit Ophthalmology [facility] [address] [place] [address] [place] Gordon MD [address] [place] [address] [place] [address] 12/15/2024 4:20 PM EDT Office Visit Nephrology [facility] [place] [address] [facility] [place] [address] Elie Dixon MD [address] [place] [facility] [place] [address] 12/23/2024 10:30 AM EDT Office Visit Ophthalmology [facility] [address] [place] [address] Archana Nava MD [address] [place] [address] 12/24/2024 10:30 AM EDT Office Visit Cardiology [facility] [address] [place] [facility] [place] [address] Angela Briggs CRNP [address] [place] [facility] [place] [address] 01/22/2025 1:15 PM EDT Imaging Radiology [facility] [address] [place] [address] Scheduled Orders Name Type Priority Associated Diagnoses Orde r Schedule CBC WITH WBC DIFFERENTIAL Lab Routine Acute on chronic respiratory failure with hypercapnia (HCC) Cellulitis, unspecified cellulitis site Expected: 10/17/2024, Expires: 10/10/2025 BASIC METABOLIC PANEL Lab Routine Acute on chronic respiratory failure with hypercapnia (HCC) Cellulitis, unspecified cellulitis site Expected: 10/17/2024, Expires: 10/10/2025 Health Maintenance Due Date Last Done Comments [...] this encounter Medical Devices Implanted Type Area Network Operations Specialist Device Identifier Shelf Expiration Date Model / Serial / Lot Cath Drainage 10fr [facility]-10-038 - [id number] Implanted:Qty : 1 on 05/07/2023 at [facility] Right: Abdomen [employer] [id number] 02/15/2026 [facility]-10-03 8 / / [id number] documented as of this encounter Procedures Procedure Name Priority Date/Time Associated Diagnosis Comments GLUCOSE METER, POINT OF CARE [place] 10/10/2024 4:48 PM EST GLUCOSE METER, POINT OF CARE [place] 10/10/2024 12:12 PM EST GLUCOSE METER, POINT OF CARE [place] 10/10/2024 7:39 AM EST BASIC METABOLIC PANEL Routine 10/10/2024 6:13 AM EST CBC Routine 10/10/2024 6:13 AM EST MAGNESIUM Routine 10/10/2024 6:13 AM EST GLUCOSE METER, POINT OF CARE [place] 10/09/2024 9:39 PM EST GLUCOSE METER, POINT OF CARE [place] 10/09/2024 4:58 PM EST GLUCOSE METER, POINT OF CARE [place] 10/09/2024 12:26 PM EST BASIC METABOLIC PANEL Routine 10/09/2024 6:18 AM EST CBC Routine 10/09/2024 6:18 AM EST MAGNESIUM Routine 10/09/2024 6:18 AM EST GLUCOSE METER, POINT OF CARE [place] 10/08/2024 9:09 PM EST GLUCOSE METER, POINT OF CARE [place] 10/08/2024 4:27 PM EST GLUCOSE METER, POINT OF CARE [place] 10/08/2024 11:30 AM EST GLUCOSE METER, POINT OF CARE [place] 10/08/2024 7:22 AM EST BASIC METABOLIC PANEL Routine 10/08/2024 6:38 AM EST CBC Routine 10/08/2024 6:38 AM EST MAGNESIUM Routine 10/08/2024 6:38 AM EST GLUCOSE METER, POINT OF CARE [place] 10/07/2024 9:15 PM EST BASIC METABOLIC PANEL Routine 10/07/2024 5:20 PM EST MAGNESIUM Routine 10/07/2024 5:20 PM EST GLUCOSE METER, POINT OF CARE [facility] 10/07/2024 3:26 PM EST GLUCOSE METER, POINT OF CARE [facility] 10/07/2024 10:46 AM EST BASIC METABOLIC PANEL Routine 10/07/2024 4:42 AM EST PHOSPHORUS Add-on 10/07/2024 4:42 AM EST CBC Routine 10/07/2024 4:42 AM EST MAGNESIUM Routine 10/07/2024 4:42 AM EST GLUCOSE METER, POINT OF CARE [facility] 10/06/2024 9:31 PM EST GLUCOSE METER, POINT OF CARE [facility] 10/06/2024 3:58 PM EST ECHO, TTE, LIMITED Routine 10/06/2024 11 :31 AM EST Heart failure (HCC) GLUCOSE METER, POINT OF CARE [facility] 10/06/2024 10:31 AM EST GLUCOSE METER, POINT OF CARE [place] 10/06/2024 5:57 AM EST BASIC METABOLIC PANEL Routine 10/06/2024 4:03 AM EST CBC Routine 10/06/2024 4:03 AM EST MAGNESIUM Routine 10/06/2024 4:03 AM EST GLUCOSE METER, POINT OF CARE [place] 10/05/2024 8:46 PM EST GLUCOSE METER, POINT OF CARE [place] 10/05/2024 5:02 PM EST VASC DUPLEX VENOUS LE BILAT Routine 10/05/2024 2:22 PM EST Generalized edema CT CHEST WO CONTRAST Routine 10/05/2024 1:45 PM EST GLUCOSE METER, POINT OF CARE [place] 10/05/2024 12:11 PM EST RESPIRATORY PATHOGEN PANEL, PCR STAT 10/05/2024 12:09 PM EST IRON SCREEN, INCLUDING TIBC Routine 10/05/2024 11:47 AM EST FERRITIN Routine 10/05/2024 11:47 AM EST BLOOD GAS, ARTERIAL Routine 10/05/2024 1 1:07 AM EST BLOOD GAS, VENOUS Routine 10/05/2024 3:5 0 AM EST BASIC METABOLIC PANEL Routine 10/05/2024 3:50 AM EST FOLIC ACID Add-on 10/05/2024 3:50 AM EST PHOSPHORUS Add-on 10/05/2024 3:50 AM EST CBC Routine 10/05/2024 3:50 AM EST MAGNESIUM Routine 10/05/2024 3:50 AM EST VITAMIN B12 Add-on 10/05/2024 3:50 AM EST BLOOD GAS, ARTERIAL Routine 10/04/2024 9 :26 PM EST GLUCOSE METER, POINT OF CARE [facility] 10/04/2024 8:38 PM EST GLUCOSE METER, POINT OF CARE [facility] 10/04/2024 6:21 PM EST BLOOD GAS, ARTERIAL STAT 10/04/2024 3 :38 PM EST TSH WITH FREE T4 IF INDICATED Add-on 10/04/2024 1:46 PM EST BASIC METABOLIC PANEL Routine 10/04/2024 1:46 PM EST POTASSIUM, WHOLE BLOOD Routine 1:46 PM EST GLUCOSE METER, POINT OF CARE [facility] 10/04/2024 12:17 PM EST BLOOD GAS, ARTERIAL STAT 10/04/2024 1 2:09 PM EST BLOOD GAS, VENOUS Routine 10/04/2024 9:4 0 AM EST GLUCOSE METER, POINT OF CARE [facility] 10/04/2024 8:55 AM EST DIFFERENTIAL, AUTOMATED Routine 10/04/2024 7:55 AM EST COMPREHENSIVE METABOLIC PANEL Routine 10/04/2024 7:55 AM EST CBC Routine 10/04/2024 7:55 AM EST CBC Routine 10/04/2024 7:55 AM EST GLUCOSE METER, POINT OF CARE [facility] 10/03/2024 9:15 PM EST GLUCOSE METER, POINT OF CARE [facility] 10/03/2024 6:03 PM EST MRSA SCREEN, PCR Routine 10/03/2024 12:0 8 PM EST GLUCOSE METER, POINT OF CARE [facility] 10/03/2024 12:01 PM EST GLUCOSE METER, POINT OF CARE [facility] 10/03/2024 8:35 AM EST HEMOGLOBIN A1C Routine 10/03/2024 4:48 AM EST BASIC METABOLIC PANEL Routine 10/03/2024 4:48 AM EST PHOSPHORUS Routine 10/03/2024 4:48 AM EST CBC Routine 10/03/2024 4:48 AM EST MAGNESIUM Routine 10/03/2024 4:48 AM EST URINALYSIS, REFLEX TO CULTURE STAT 10/03/2024 4:06 AM EST URINALYSIS, REFLEX TO CULTURE (CUP ONLY) STAT 10/03/2024 4:06 AM EST URINALYSIS, REFLEX TO CULTURE (NOT FOR NEUTROPENIC PATIENTS) STAT 10/03/2024 4:06 AM EST CULTURE, URINE, QUANTITATIVE STAT 10/03/2024 4:06 AM EST GLUCOSE METER, POINT OF CARE [facility] 10/03/2024 12:07 AM EST TROPONIN T, HIGH SENSITIVITY STAT 10/02/2024 9:55 PM EST XR CHEST 1 VIEW STAT 10/02/2024 8:53 PM EST Other specified symptoms and signs involving the circulatory and respiratory systems SOB (shortness of breath) DIFFERENTIAL, AUTOMATED STAT 10/02/2024 7:49 PM EST TROPONIN T, HIGH SENSITIVITY STAT 10/02/2024 7:49 PM EST BNP (NT-PROBNP) STAT 10/02/2024 7:49 PM EST COMPREHENSIVE METABOLIC PANEL STAT 10/02/2024 7:49 PM EST CBC STAT 10/02/2024 7:49 PM EST LIPASE STAT 10/02/2024 7:49 PM EST CBC STAT 10/02/2024 7:49 PM EST HC ECG TRACING ONLY STAT 10/02/2024 6 :25 PM EST SOB (shortness of breath) documented in this encounter Results * (ABNORMAL) GLUCOSE METER, POINT OF CARE (10/10/2024 4:48 PM EST) GLUCOSE - POCT 133(H) 70 - 120 mg/dL 10/10/2024 4:55 PM EST [facility] POCT (34-60) Blood Whole blood specimen / Unknown 10/10/2024 4:48 PM EST 10/10/2024 4:55 PM EST Raven Yañez MD LAB POINT OF CARE TEST DOCKED DEVICE UNSOLICITED RESULTS Final Result [facility] POCT (34-60) [address] [place] [address] * (ABNORMAL) GLUCOSE METER, POINT OF CARE (10/10/2024 12:12 PM EST) GLUCOSE - POCT 184(H) 70 - 120 mg/dL 10/10/2024 12:26 PM EST [facility] POCT (34-60) Blood Whole blood specimen / Unknown 10/10/2024 12:12 PM EST 10/10/2024 12:26 PM EST Raven Yañez MD LAB POINT OF CARE TEST DOCKED DEVICE UNSOLICITED RESULTS Final Result Performing Organization Address [facility] de Phone Number [facility] POCT (34-60) [address] [place] [address] * (ABNORMAL) GLUCOSE METER, POINT OF CARE (10/10/2024 7:39 AM EST) Pathologist [facility] GLUCOSE - POCT 174(H) 70 - 120 mg/dL 10/10/2024 7:42 AM EST [facility] POCT (34-60) Blood Whole blood specimen / Unknown 10/10/2024 7:39 AM EST 10/10/2024 7:42 AM EST us Raven Yañez MD LAB POINT OF CARE TEST DOCKED DEVICE UNSOLICITED RESULTS Final Result Performing Organization Address [facility] de Phone Number [facility] POCT (34-60) [address] [place] [id number] * MAGNESIUM (10/10/2024 6:13 AM EST) Magnesium 2.0 1.5 - 2.6 mg/dL 10/10/2024 7:00 AM EST LABORATORY GW Blood Venous blood specimen / Unknown Venipuncture / Unknown 10/10/2024 6:13 AM EST 10/10/2024 6:31 AM EST us Adan Conory MD LAB BLOOD ORDERABLES Final Result Performing Organization Address [facility] Co de Phone Number LABORATORY [facility] [address] [place] [address] * (ABNORMAL) CBC (10/10/2024 6:13 AM EST) WBC 9.32 4.00 - 10.80 K/uL 10/10/2024 6:54 AM EST LABORATORY [facility]V RBC 4.46 3.85 - 5.15 M/uL 10/10/2024 6:54 AM EST LABORATORY [facility] HGB 11.8(L) 12.0 - 15.3 g/dL 10/10/2024 6:54 AM EST LABORATORY [facility] HCT 39.8 36.0 - 45.2 % 10/10/2024 6:54 AM EST LABORATORY [facility]V MCV 89.2 81.5 - 97.5 fL 10/10/2024 6:54 AM EST LABORATORY [facility]V MCH 26.5 27.0 - 34.0 pg 10/10/2024 6:54 AM EST LABORATORY [facility] MCHC 29.6 32.0 - 36.0 g/dL 10/10/2024 6:54 AM EST LABORATORY [facility]V RDW 15.0 11.5 - 15.5 % 10/10/2024 6:54 AM EST LABORATORY [facility]V PLT 151 140 - 400 K/uL 10/10/2024 6:54 AM EST LABORATORY [facility] MPV 9.2 6.6 - 11.1 fL 10/10/2024 6:54 AM EST LABORATORY GWV nRBCs 0 <=0 /100 WBCs 10/10/2024 6:54 AM EST LABORATORY GWV Blood Venous blood specimen / Unknown Venipuncture / Unknown 10/10/2024 6:13 AM EST 10/10/2024 6:31 AM EST us Adan Conroy MD LAB BLOOD ORDERABLES Final Result Performing Organization Address City/State/[facility] Co de Phone Number LABORATORY [facility] [address] [facility] [place] [address] * (ABNORMAL) BASIC METABOLIC PANEL (10/10/2024 6:13 AM EST) BUN 41(H) 6 - 20 mg/dL 10/10/2024 7:00 AM EST LABORATORY GWV CREATININE 1.4(H) 0.5 - 1.0 mg/dL 10/10/2024 7:00 AM EST LABORATORY GWV EGFR 43(L) >=60 mL/min 10/10/2024 7:00 AM EST LABORATORY GWV Comment:eGFR is calculated b ased on the CKD-EPI 2020 equation. SODIUM 136 135 - 146 mmol/L 10/10/2024 7:00 AM EST LABORATORY GWV POTASSIUM 4.6 3.5 - 5.1 mmol/L 10/10/2024 7:00 AM EST LABORATORY [facility] CHLORIDE 93(L) 98 - 107 mmol/L 10/10/2024 7:00 AM EST LABORATORY [facility]V CO2 34(H) 22 - 32 mmol/L 10/10/2024 7:00 AM EST LABORATORY GWV ANION GAP 9 7 - 15 mmol/L 10/10/2024 7:00 AM EST LABORATORY [facility] GLUCOSE 204(H) 70 - 120 mg/dL 10/10/2024 7:00 AM EST LABORATORY [facility] CALCIUM 8.7 8.4 - 10.2 mg/dL 10/10/2024 7:00 AM EST LABORATORY GW[facility] Blood Venous blood specimen / Unknown Venipuncture / Unknown 10/10/2024 6:13 AM EST 10/10/2024 6:31 AM EST us Adan Conroy MD LAB BLOOD ORDERABLES Final Result Performing Organization Address City/[facility]/ZIP Co de Phone Number LABORATORY [facility] [address] [place], [place] [id number] * (ABNORMAL) GLUCOSE METER, POINT OF CARE (10/09/2024 9:39 PM EST) [facility] GLUCOSE - POCT 188(H) 70 - 120 mg/dL 10/09/2024 9:49 PM EST [facility] POCT (34-60) Blood Whole blood specimen / Unknown 10/09/2024 9:39 PM EST 10/09/2024 9:49 PM EST us Raven Yañez MD LAB POINT OF CARE TEST DOCKED DEVICE UNSOLICITED RESULTS Final Result Performing Organization Address City/[facility]/ZIP Co de Phone Number [facility] POCT (34-60) [address] [place] [address] * (ABNORMAL) GLUCOSE METER, POINT OF CARE (10/09/2024 4:58 PM EST) GLUCOSE - POCT 191(H) 70 - 120 mg/dL 10/09/2024 5:16 PM EST [facility] POCT (34-60) Blood Whole blood specimen / Unknown 10/09/2024 4:58 PM EST 10/09/2024 5:16 PM EST us Raven Yañez MD LAB POINT OF CARE TEST DOCKED DEVICE UNSOLICITED RESULTS Final Result [facility] POCT (34-60) [address] [place] [address] * (ABNORMAL) GLUCOSE METER, POINT OF CARE (10/09/2024 12:26 PM EST) GLUCOSE - POCT 167(H) 70 - 120 mg/dL 10/09/2024 12:41 PM EST [facility] POCT (34-60) Blood Whole blood specimen / Unknown 10/09/2024 12:26 PM EST 10/09/2024 12:41 PM EST us Raven Yañez MD LAB POINT OF CARE TEST DOCKED DEVICE UNSOLICITED RESULTS Final Result Performing Organization Address City/[facility] de Phone Number [facility] POCT (34-60) [address] [place] [address] * MAGNESIUM (10/09/2024 6:18 AM EST) Pathologist [facility] Magnesium 2.1 1.5 - 2.6 mg/dL 10/09/2024 7:05 AM EST LABORATORY GWV Blood Venous blood specimen / Unknown Venipuncture / Unknown 10/09/2024 6:18 AM EST 10/09/2024 6:29 AM EST us Adan Conroy MD LAB BLOOD ORDERABLES Final Result [facility] [address] [facility] [place] [id number] * (ABNORMAL) CBC (10/09/2024 6:18 AM EST) WBC 6.82 4.00 - 10.80 K/uL 10/09/2024 6:37 AM EST LABORATORY [facility]V RBC 4.37 3.85 - 5.15 M/uL 10/09/2024 6:37 AM EST LABORATORY GWV HGB 11.8(L) 12.0 - 15.3 g/dL 10/09/2024 6:37 AM EST LABORATORY GWV HCT 39.5 36.0 - 45.2 % 10/09/2024 6:37 AM EST LABORATORY GWV MCV 90.4 81.5 - 97.5 fL 10/09/2024 6:37 AM EST LABORATORY GW[facility] MCH 27.0 27.0 - 34.0 pg 10/09/2024 6:37 AM EST LABORATORY [facility] MCHC 29.9 32.0 - 36.0 g/dL 10/09/2024 6:37 AM EST LABORATORY [facility]V RDW 15.2 11.5 - 15.5 % 10/09/2024 6:37 AM EST LABORATORY [facility] PLT 169 140 - 400 K/uL 10/09/2024 6:37 AM EST LABORATORY [facility] MPV 9.1 6.6 - 11.1 fL 10/09/2024 6:37 AM EST LABORATORY GW[facility] nRBCs 0 <=0 /100 WBCs 10/09/2024 6:37 AM EST LABORATORY GW[facility] Blood Venous blood specimen / Unknown Venipuncture / Unknown 10/09/2024 6:18 AM EST 10/09/2024 6:29 AM EST us Adan Conroy MD LAB BLOOD ORDERABLES Final Result LABORATORY [facility] [address] [facility] [place] [address] * (ABNORMAL) BASIC METABOLIC PANEL (10/09/2024 6:18 AM EST) BUN 39(H) 6 - 20 mg/dL 10/09/2024 7:05 AM EST LABORATORY [facility] CREATININE 1.4(H) 0.5 - 1.0 mg/dL 10/09/2024 7:05 AM EST LABORATORY GWV EGFR 42(L) >=60 mL/min 10/09/2024 7:05 AM EST LABORATORY GWV Comment:eGFR is calculated b ased on the CKD-EPI 2020 equation. SODIUM 137 135 - 146 mmol/L 10/09/2024 7:05 AM EST LABORATORY GWV POTASSIUM 4.7 3.5 - 5.1 mmol/L 10/09/2024 7:05 AM EST LABORATORY GWV CHLORIDE 94(L) 98 - 107 mmol/L 10/09/2024 7:05 AM EST LABORATORY GWV CO2 35(H) 22 - 32 mmol/L 10/09/2024 7:05 AM EST LABORATORY GWV ANION GAP 8 7 - 15 mmol/L 10/09/2024 7:05 AM EST LABORATORY [facility] GLUCOSE 166(H) 70 - 120 mg/dL 10/09/2024 7:05 AM EST LABORATORY GWV CALCIUM 8.8 8.4 - 10.2 mg/dL 10/09/2024 7:05 AM EST LABORATORY GWV Blood Venous blood specimen / Unknown Venipuncture / Unknown 10/09/2024 6:18 AM EST 10/09/2024 6:29 AM EST us Adan Conroy MD LAB BLOOD ORDERABLES Final Result LABORATORY [facility] [address] [place] [address] * (ABNORMAL) GLUCOSE METER, POINT OF CARE (10/08/2024 9:09 PM EST) [facility] GLUCOSE - POCT 194(H) 70 - 120 mg/dL 10/08/2024 9:26 PM EST [facility] POCT (34-60) Blood Whole blood specimen / Unknown 10/08/2024 9:09 PM EST 10/08/2024 9:26 PM EST us Raven Yañez MD LAB POINT OF CARE TEST DOCKED DEVICE UNSOLICITED RESULTS Final Result Performing Organization Address City/[facility]/ZIP Co de Phone Number [facility] POCT (34-60) [address] [place] [address] * (ABNORMAL) GLUCOSE METER, POINT OF CARE (10/08/2024 4:27 PM EST) GLUCOSE - POCT 124(H) 70 - 120 mg/dL 10/08/2024 4:35 PM EST [facility] POCT (34-60) Blood Whole blood specimen / Unknown 10/08/2024 4:27 PM EST 10/08/2024 4:35 PM EST Raven Yañez MD LAB POINT OF CARE TEST DOCKED DEVICE UNSOLICITED RESULTS Final Result Performing Organization Address [facility] Co de Phone Number [facility] POCT (34-60) [address] [place] [address] * (ABNORMAL) GLUCOSE METER, POINT OF CARE (10/08/2024 11:30 AM EST) GLUCOSE - POCT 196(H) 70 - 120 mg/dL 10/08/2024 11:38 AM EST [facility] POCT (34-60) Blood Whole blood specimen / Unknown 10/08/2024 11:30 AM EST 10/08/2024 11:38 AM EST Raven Yañez MD LAB POINT OF CARE TEST DOCKED DEVICE UNSOLICITED RESULTS Final Result Performing Organization Address City/[facility] Co de Phone Number [facility] POCT (34-60) [address] [place] [address] * (ABNORMAL) GLUCOSE METER, POINT OF CARE (10/08/2024 7:22 AM EST) GLUCOSE - POCT 139(H) 70 - 120 mg/dL 10/08/2024 7:33 AM EST [facility] POCT (34-60) Blood Whole blood specimen / Unknown 10/08/2024 7:22 AM EST 10/08/2024 7:33 AM EST us Raven Yañez MD LAB POINT OF CARE TEST DOCKED DEVICE UNSOLICITED RESULTS Final Result Performing Organization Address City/[facility]/ZIP Co de Phone Number [facility] POCT (34-60) [address] [place] [address] * MAGNESIUM (10/08/2024 6:38 AM EST) Magnesium 2.0 1.5 - 2.6 mg/dL 10/08/2024 7:31 AM EST LABORATORY GWV Blood Venous blood specimen / Unknown Venipuncture / Unknown 10/08/2024 6:38 AM EST 10/08/2024 6:49 AM EST us Adan Conroy MD LAB BLOOD ORDERABLES Final Result Performing Organization Address City/[facility]/ZIP Co de Phone Number LABORATORY [facility] [address] [place] [address] * (ABNORMAL) CBC (10/08/2024 6:38 AM EST) WBC 6.93 4.00 - 10.80 K/uL 10/08/2024 6:59 AM EST LABORATORY [facility]V RBC 4.31 3.85 - 5.15 M/uL 10/08/2024 6:59 AM EST LABORATORY GWV HGB 11.5(L) 12.0 - 15.3 g/dL 10/08/2024 6:59 AM EST LABORATORY GWV HCT 39.2 36.0 - 45.2 % 10/08/2024 6:59 AM EST LABORATORY GWV MCV 91.0 81.5 - 97.5 fL 10/08/2024 6:59 AM EST LABORATORY GWV MCH 26.7 27.0 - 34.0 pg 10/08/2024 6:59 AM EST LABORATORY GWV MCHC 29.3 32.0 - 36.0 g/dL 10/08/2024 6:59 AM EST LABORATORY GWV RDW 14.6 11.5 - 15.5 % 10/08/2024 6:59 AM EST LABORATORY GWV PLT 183 140 - 400 K/uL 10/08/2024 6:59 AM EST LABORATORY GWV MPV 8.9 6.6 - 11.1 fL 10/08/2024 6:59 AM EST LABORATORY GWV nRBCs 0 <=0 /100 WBCs 10/08/2024 6:59 AM EST LABORATORY GW[facility] Blood Venous blood specimen / Unknown Venipuncture / Unknown 10/08/2024 6:38 AM EST 10/08/2024 6:49 AM EST us Adan Conroy MD LAB BLOOD ORDERABLES Final Result LABORATORY [facility] [address] [place] [address] * (ABNORMAL) BASIC METABOLIC PANEL (10/08/2024 6:38 AM EST) BUN 35(H) 6 - 20 mg/dL 10/08/2024 7:31 AM EST LABORATORY GWV CREATININE 1.3(H) 0.5 - 1.0 mg/dL 10/08/2024 7:31 AM EST LABORATORY GWV EGFR 45(L) >=60 mL/min 10/08/2024 7:31 AM EST LABORATORY GWV Comment:eGFR is calculated b ased on the CKD-EPI 2020 equation. SODIUM 139 135 - 146 mmol/L 10/08/2024 7:31 AM EST LABORATORY GWV POTASSIUM 4.5 3.5 - 5.1 mmol/L 10/08/2024 7:31 AM EST LABORATORY GWV CHLORIDE 95(L) 98 - 107 mmol/L 10/08/2024 7:31 AM EST LABORATORY GWV CO2 37(H) 22 - 32 mmol/L 10/08/2024 7:31 AM EST LABORATORY GWV ANION GAP 7 7 - 15 mmol/L 10/08/2024 7:31 AM EST LABORATORY [facility] GLUCOSE 148(H) 70 - 120 mg/dL 10/08/2024 7:31 AM EST LABORATORY GWV CALCIUM 8.7 8.4 - 10.2 mg/dL 10/08/2024 7:31 AM EST LABORATORY GWV Blood Venous blood specimen / Unknown Venipuncture / Unknown 10/08/2024 6:38 AM EST 10/08/2024 6:49 AM EST us Adan Conroy MD LAB BLOOD ORDERABLES Final Result Performing Organization Address City/[facility]/ZIP Co de Phone Number LABORATORY [facility] [address] [place] [address] * (ABNORMAL) GLUCOSE METER, POINT OF CARE (10/07/2024 9:15 PM EST) Pathologist [facility] GLUCOSE - POCT 146(H) 70 - 120 mg/dL 10/07/2024 9:32 PM EST [facility] POCT (34-60) Blood Whole blood specimen / Unknown 10/07/2024 9:15 PM EST 10/07/2024 9:32 PM EST us Gilmar Ford DO LAB POINT OF C ARE TEST DOCKED DEVICE UNSOLICITED RESULTS Final Result Performing Organization Address [facility] de Phone Number [facility] POCT (34-60) [address] [place] [address] * MAGNESIUM (10/07/2024 5:20 PM EST) Pathologist [facility] Magnesium 1.9 1.5 - 2.6 mg/dL 10/07/2024 6:01 PM EST LABORATORY GWV Blood Venous blood specimen / Unknown Venipuncture / Unknown 10/07/2024 5:20 PM EST 10/07/2024 5:41 PM EST us Deb Daniels MD LAB BLOOD ORDERABLES Renetta l Result LABORATORY GWV [address] [place] [address] * (ABNORMAL) BASIC METABOLIC PANEL (10/07/2024 5:20 PM EST) [facility] Signature BUN 34(H) 6 - 20 mg/dL 10/07/2024 6:01 PM EST LABORATORY GWV CREATININE 1.2(H) 0.5 - 1.0 mg/dL 10/07/2024 6:01 PM EST LABORATORY GWV EGFR 49(L) >=60 mL/min 10/07/2024 6:01 PM EST LABORATORY GWV Comment:eGFR is calculated b ased on the CKD-EPI 2020 equation. SODIUM 138 135 - 146 mmol/L 10/07/2024 6:01 PM EST LABORATORY GWV POTASSIUM 4.5 3.5 - 5.1 mmol/L 10/07/2024 6:01 PM EST LABORATORY [facility]V CHLORIDE 95(L) 98 - 107 mmol/L 10/07/2024 6:01 PM EST LABORATORY GWV CO2 37(H) 22 - 32 mmol/L 10/07/2024 6:01 PM EST LABORATORY GWV ANION GAP 6(L) 7 - 15 mmol/L 10/07/2024 6:01 PM EST LABORATORY [facility] GLUCOSE 151(H) 70 - 120 mg/dL 10/07/2024 6:01 PM EST LABORATORY [facility]V CALCIUM 8.7 8.4 - 10.2 mg/dL 10/07/2024 6:01 PM EST LABORATORY [facility] Blood Venous blood specimen / Unknown Venipuncture / Unknown 10/07/2024 5:20 PM EST 10/07/2024 5:41 PM EST us Deb Daniels MD LAB BLOOD ORDERABLES Renetta l Result LABORATORY GW[facility] [address] [facility] [address] * (ABNORMAL) GLUCOSE METER, POINT OF CARE (10/07/2024 3:26 PM EST) [facility] GLUCOSE - POCT 196(H) 70 - 120 mg/dL 10/07/2024 9:32 PM EST [facility] POCT (34-60) Blood Whole blood specimen / Unknown 10/07/2024 3:26 PM EST 10/07/2024 9:32 PM EST Gilmar Ford DO LAB POINT OF C ARE TEST DOCKED DEVICE UNSOLICITED RESULTS Final Result Performing Organization Address [facility]/ZIP Co de Phone Number [facility] POCT (34-60) [address] [place] [address] * (ABNORMAL) GLUCOSE METER, POINT OF CARE (10/07/2024 10:46 AM EST) [facility] GLUCOSE - POCT 223(H) 70 - 120 mg/dL 10/07/2024 10:59 AM EST [facility] POCT (34-60) Blood Whole blood specimen / Unknown 10/07/2024 10:46 AM EST 10/07/2024 10:59 AM EST us Gilmar Ford DO LAB POINT OF C ARE TEST DOCKED DEVICE UNSOLICITED RESULTS Final Result Performing Organization Address [facility] de Phone Number [facility] POCT (34-60) [address] [place] [address] * PHOSPHORUS (10/07/2024 4:42 AM EST) [facility] Phosphorus 3.2 2.5 - 4.8 mg/dL 10/07/2024 7:46 AM EST LABORATORY GW Blood Venous blood specimen / Unknown Venipuncture / Unknown 10/07/2024 4:42 AM EST 10/07/2024 5:14 AM EST us Lazaro Hatch MD LAB BLOOD ORDERABLES Final Res ult Performing Organization Address City/[facility]/ZIP Co de Phone Number LABORATORY [facility] [address] [place] [address] * MAGNESIUM (10/07/2024 4:42 AM EST) Magnesium 2.1 1.5 - 2.6 mg/dL 10/07/2024 5:52 AM EST LABORATORY GWV Blood Venous blood specimen / Unknown Venipuncture / Unknown 10/07/2024 4:42 AM EST 10/07/2024 5:14 AM EST Adan Conroy MD LAB BLOOD ORDERABLES Final Result LABORATORY [facility] [address] [place] [address] * (ABNORMAL) CBC (10/07/2024 4:42 AM EST) WBC 5.69 4.00 - 10.80 K/uL 10/07/2024 5:44 AM EST LABORATORY [facility]V RBC 4.48 3.85 - 5.15 M/uL 10/07/2024 5:44 AM EST LABORATORY [facility]V HGB 11.8(L) 12.0 - 15.3 g/dL 10/07/2024 5:44 AM EST LABORATORY GWV HCT 41.1 36.0 - 45.2 % 10/07/2024 5:44 AM EST LABORATORY [facility]V MCV 91.7 81.5 - 97.5 fL 10/07/2024 5:44 AM EST LABORATORY [facility] MCH 26.3 27.0 - 34.0 pg 10/07/2024 5:44 AM EST LABORATORY [facility]V MCHC 28.7 32.0 - 36.0 g/dL 10/07/2024 5:44 AM EST LABORATORY [facility]V RDW 14.5 11.5 - 15.5 % 10/07/2024 5:44 AM EST LABORATORY GWV PLT 174 140 - 400 K/uL 10/07/2024 5:44 AM EST LABORATORY GWV MPV 9.0 6.6 - 11.1 fL 10/07/2024 5:44 AM EST LABORATORY [facility] nRBCs 0 <=0 /100 WBCs 10/07/2024 5:44 AM EST LABORATORY [facility] Blood Venous blood specimen / Unknown Venipuncture / Unknown 10/07/2024 4:42 AM EST 10/07/2024 5:14 AM EST us Adan Conroy MD LAB BLOOD ORDERABLES Final Result LABORATORY [facility] [address] [place] [address] * (ABNORMAL) BASIC METABOLIC PANEL (10/07/2024 4:42 AM EST) BUN 37(H) 6 - 20 mg/dL 10/07/2024 5:52 AM EST LABORATORY [facility] CREATININE 1.4(H) 0.5 - 1.0 mg/dL 10/07/2024 5:52 AM EST LABORATORY [facility] EGFR 42(L) >=60 mL/min 10/07/2024 5:52 AM EST LABORATORY GWV Comment:eGFR is calculated b ased on the CKD-EPI 2020 equation. SODIUM 138 135 - 146 mmol/L 10/07/2024 5:52 AM EST LABORATORY [facility] POTASSIUM 4.9 3.5 - 5.1 mmol/L 10/07/2024 5:52 AM EST LABORATORY [facility] CHLORIDE 98 98 - 107 mmol/L 10/07/2024 5:52 AM EST LABORATORY [facility] CO2 35(H) 22 - 32 mmol/L 10/07/2024 5:52 AM EST LABORATORY [facility] ANION GAP 5(L) 7 - 15 mmol/L 10/07/2024 5:52 AM EST LAB[facility]ATORY [facility] GLUCOSE 154(H) 70 - 120 mg/dL 10/07/2024 5:52 AM EST LABORATORY [facility] CALCIUM 8.8 8.4 - 10.2 mg/dL 10/07/2024 5:52 AM EST LABORATORY [facility] Blood Venous blood specimen / Unknown Venipuncture / Unknown 10/07/2024 4:42 AM EST 10/07/2024 5:14 AM EST us Adan Conroy MD LAB BLOOD ORDERABLES Final Result Performing Organization Address City/[facility]/ZIP Co de Phone Number LABORATORY [facility] [address] [place] [address] * (ABNORMAL) GLUCOSE METER, POINT OF CARE (10/06/2024 9:31 PM EST) GLUCOSE - POCT 230(H) 70 - 120 mg/dL 10/06/2024 9:43 PM EST [facility] POCT (34-60) Blood Whole blood specimen / Unknown 10/06/2024 9:31 PM EST 10/06/2024 9:43 PM EST Gilmar Ford DO LAB POINT OF C ARE TEST DOCKED DEVICE UNSOLICITED RESULTS Final Result Performing Organization Address City/[facility]/ZIP Co de Phone Number [facility] POCT (34-60) [address] [place] [address] * (ABNORMAL) GLUCOSE METER, POINT OF CARE (10/06/2024 3:58 PM EST) GLUCOSE - POCT 183(H) 70 - 120 mg/dL 10/06/2024 4:00 PM EST [facility] POCT (34-60) Blood Whole blood specimen / Unknown 10/06/2024 3:58 PM EST 10/06/2024 4:00 PM EST Gilmar Ford DO LAB POINT OF C ARE TEST DOCKED DEVICE UNSOLICITED RESULTS Final Result Performing Organization Address City/[facility]/ZIP Co de Phone Number [facility] POCT (34-60) [address] [place] [address] * ECHO, TTE, LIMITED (10/06/2024 11:31 AM EST) LEFT VENTRICULAR EJECTION FRACTION 60 % [facility] 10/06/2024 11:0 2 AM EST Usha Harden MD ECHOCARDIOLOGY Final Result [facility] * (ABNORMAL) GLUCOSE METER, POINT OF CARE (10/06/2024 10:31 AM EST) GLUCOSE - POCT 233(H) 70 - 120 mg/dL 10/06/2024 11:31 AM EST [facility] POCT (34-60) Blood Whole blood specimen / Unknown 10/06/2024 10:31 AM EST 10/06/2024 11:31 AM EST Gilmar Ford DO LAB POINT OF C ARE TEST DOCKED DEVICE UNSOLICITED RESULTS Final Result Performing Organization Address City/[facility]/ZIP Co de Phone Number [facility] POCT (34-60) [address] [place] [address] * (ABNORMAL) GLUCOSE METER, POINT OF CARE (10/06/2024 5:57 AM EST) GLUCOSE - POCT 270(H) 70 - 120 mg/dL 10/06/2024 6:24 AM EST [facility] POCT (34-60) Blood Whole blood specimen / Unknown 10/06/2024 5:57 AM EST 10/06/2024 6:24 AM EST Gilmar Ford DO LAB POINT OF C ARE TEST DOCKED DEVICE UNSOLICITED RESULTS Final Result Performing Organization Address [facility] de Phone Number [facility] POCT (34-60) [address] [place] [address] * MAGNESIUM (10/06/2024 4:03 AM EST) Pathologist [facility] Magnesium 1.9 1.5 - 2.6 mg/dL 10/06/2024 5:39 AM EST [facility] Blood Venous blood specimen / Unknown Venipuncture / Unknown 10/06/2024 4:03 AM EST 10/06/2024 4:47 AM EST Adan Conroy MD LAB BLOOD ORDERABLES Final Result [facility] [address] [place] [address] * (ABNORMAL) CBC (10/06/2024 4:03 AM EST) WBC 5.98 4.00 - 10.80 K/uL 10/06/2024 4:53 AM EST [facility] RBC 4.04 3.85 - 5.15 M/uL 10/06/2024 4:53 AM EST [facility] HGB 10.6(L) 12.0 - 15.3 g/dL 10/06/2024 4:53 AM EST [facility] HCT 36.9 36.0 - 45.2 % 10/06/2024 4:53 AM EST [facility] MCV 91.3 81.5 - 97.5 fL 10/06/2024 4:53 AM EST [facility] MCH 26.2 27.0 - 34.0 pg 10/06/2024 4:53 AM EST [facility] MCHC 28.7 32.0 - 36.0 g/dL 10/06/2024 4:53 AM EST [facility] RDW 14.6 11.5 - 15.5 % 10/06/2024 4:53 AM EST [facility] PLT 168 140 - 400 K/uL 10/06/2024 4:53 AM EST [facility] MPV 9.2 6.6 - 11.1 fL 10/06/2024 4:53 AM EST [facility] nRBCs 0 <=0 /100 WBCs 10/06/2024 4:53 AM EST [facility] Blood Venous blood specimen / Unknown Venipuncture / Unknown 10/06/2024 4:03 AM EST 10/06/2024 4:47 AM EST Adan Conroy MD LAB BLOOD ORDERABLES Final Result [facility] [address] [facility] [place] [address] * (ABNORMAL) BASIC METABOLIC PANEL (10/06/2024 4:03 AM EST) BUN 40(H) 6 - 20 mg/dL 10/06/2024 5:39 AM EST [facility] CREATININE 1.3(H) 0.5 - 1.0 mg/dL 10/06/2024 5:39 AM EST [facility] EGFR 44(L) >=60 mL/min 10/06/2024 5:39 AM EST [facility] Comment:eGFR is calculated b ased on the CKD-EPI 2020 equation. SODIUM 137 135 - 146 mmol/L 10/06/2024 5:39 AM EST [facility] POTASSIUM 4.8 3.5 - 5.1 mmol/L 10/06/2024 5:39 AM EST LAB[facility]ATORY [facility] CHLORIDE 99 98 - 107 mmol/L 10/06/2024 5:39 AM EST [facility] CO2 31 22 - 32 mmol/L 10/06/2024 5:39 AM EST [facility] ANION GAP 7 7 - 15 mmol/L 10/06/2024 5:39 AM EST [facility] GLUCOSE 303(H) 70 - 120 mg/dL 10/06/2024 5:39 AM EST [facility] CALCIUM 8.4 8.4 - 10.2 mg/dL 10/06/2024 5:39 AM EST [facility] Blood Venous blood specimen / Unknown Venipuncture / Unknown 10/06/2024 4:03 AM EST 10/06/2024 4:47 AM EST Adan Conroy MD LAB BLOOD ORDERABLES Final Result [facility] [address] [place] [address] * (ABNORMAL) GLUCOSE METER, POINT OF CARE (10/05/2024 8:46 PM EST) GLUCOSE - POCT 163(H) 70 - 120 mg/dL 10/05/2024 9:03 PM EST [facility] POCT (34-60) Blood Whole blood specimen / Unknown 10/05/2024 8:46 PM EST 10/05/2024 9:03 PM EST us Gilmar Ford DO LAB POINT OF C ARE TEST DOCKED DEVICE UNSOLICITED RESULTS Final Result Performing Organization Address [facility] Co de Phone Number [facility] PO[facility] ([facility]-60[facility] [address] [place] [address] * (ABNORMAL) GLUCOSE METER, POINT OF CARE (10/05/2024 5:02 PM EST) [facility] GLUCOSE - POCT 146(H) 70 - 120 mg/dL 10/05/2024 5:31 PM EST [facility] POCT (34-60) Blood Whole blood specimen / Unknown 10/05/2024 5:02 PM EST 10/05/2024 5:31 PM EST us Gilmar Ford DO LAB POINT OF C ARE TEST DOCKED DEVICE UNSOLICITED RESULTS Final Result Performing Organization Address [facility] Co de Phone Number [facility] POCT (34-60) [address] [place] [address] * VASC DUPLEX VENOUS LE BILAT (10/05/2024 2:22 PM EST) Anatomical Region Laterality Modality Lower Extremity, Vascular Ultras ound Impressions 10/05/2024 6:55 PM EST : Right lower extremity with no evidence of acute deep venous thrombosis. Left lower extremity with no evidence of acute deep venous thrombosis. Narrative 10/05/2024 6:55 PM EST VASCULAR LAB RESULTS DATE OF EXAM: 10/05/24 PRESENTING CONDITIONS: Generalized Edema Immediately before proceeding with the vascular lab procedure reported below, the identity of the patient, the correct exam and the correct procedural site were verified. PHYSICIAN REPORT: Lower Extremity Venous Duplex Examination Color flow Doppler, spectral analysis, and transducer compression techniques were applied during this ultrasound image examination. RIGHT LOWER EXTREMITY On duplex examination, the right common femoral vein, the sapheno-femoral junction, the femoral vein in the thigh and popliteal vein are all free of internal echoes and demonstrate normal transducer compressibility during batista scale imaging and normal respiratory and augmentation response during Doppler interrogation. The posterior tibial veins and peroneal veins demonstrate no evidence of thrombosis. LEFT LOWER EXTREMITY On duplex examination, the left common femoral vein, the sapheno-femoral junction, the femoral vein in the thigh, and popliteal vein are all free of internal echoes and demonstrate normal transducer compressibility during batista scale imaging and normal respiratory and augmentation response during Doppler interrogation. The posterior tibial veins and peroneal veins demonstrate no evidence of thrombosis. us Sandrine Ferris MD RAD VASCULAR Final Result * CT CHEST WO CONTRAST (10/05/2024 1:45 PM EST) Anatomical Region Laterality Modality Chest, Body, Cardio Computed Davis ography 10/05/2024 3:23 PM EST Impressions 10/05/2024 3:21 PM EST IMPRESSION 1. Dependent juxtapleural consolidation with associated [...] 4. Additional findings and details as above. Narrative 10/05/2024 3:21 PM EST EXAM EXAM: CT CHEST WO CONTRAST DATE [...] bilateral lower lobes. New triangular juxtapleural density is present in the right lower lobe on image [...] Mild incidental nodularity left adrenal gland. Cholelithiasis. Procedure Note Carson Ramos MD - 10/05/2024 EXAM EXAM: CT CHEST WO CONTRAST DATE and TIME: 10/05/2024 1:45 pm HISTORY CLINICAL INFORMATION: Rule out pneumonia versus CHF. TECHNIQUE CT chest without IV contrast. COMPARISON 09/15/2023. FINDINGS VESSELS: Mild thoracic aortic and moderate to severe coronary arterialcalcifications. Enlarged main pulmonary artery measuring 38 millimetersin caliber without significant change indicating pulmonary arterialhypertension. Ectasia of the ascending aorta measuring 3.8 centimeterswithout significant change. MEDIASTINUM AND FREDERIC: Overall no significant change in the partiallyimaged right thyroid nodule. Thyroid nodules were better assessed on theultrasound dated 02/12/2024. Follow-up as per recommendations of theultrasound. An 8 millimeter intraluminal high density is present in theesophagus on image 17 of series 3. Small mediastinal lymph nodes whichare nonspecific and likely reactive. Assessment of the frederic is limiteddue to absence of intravenous contrast. HEART: No gross pericardial effusion. Mitral annular calcification. PLEURA: There are no pleural effusions. LUNGS AND AIRWAYS: Dependent juxtapleural consolidation with associatedpatchy ground-glass densities are present in bilateral lower lobes. Thereis diffusely heterogenous attenuation of the lungs. Minimal septalthickening is present in bilateral lower lobes. New triangularjuxtapleural density is present in the right lower lobe on image 213 ofseries 2. New right juxtapleural densities are present such as a new 11 x9 millimeter juxtapleural density superior segment right lower lobe onimage 103 of series 2 and 11 x 10 millimeter the juxtapleural densityposterior right upper lobe image 91 series 2. Subsegmental scarring oratelectasis is present in the right middle lobe and lingula. Airways arepatent centrally. CHEST WALL/SOFT TISSUES: There is no axillary lymphadenopathy. LINES AND DEVICES: None BONES: No osseous destruction. Multilevel degenerative changes are presentin the thoracolumbar spine. UPPER ABDOMEN: The spleen is enlarged measuring 15.1 centimeters intransverse dimension without significant change. Mild incidentalnodularity left adrenal gland. Cholelithiasis. IMPRESSION IMPRESSION 1. Dependent juxtapleural consolidation with associated patchyground-glass densities in bilateral lower lobes. Differentialconsiderations are atelectasis versus pneumonia. New juxtapleuraldensities, nonspecific and most likely related to related to atelectasisor pneumonia. Short-term follow-up evaluation is recommended in 6- 8 weeksto ensure resolution. 2. Diffusely heterogenous attenuation of the lungs which could be relatedto mosaic attenuation from small vessel/small airway disease versusground-glass opacification from pulmonary edema. Minimal septalthickening in bilateral lower lobes, nonspecific finding and could berelated to interstitial thickening or pulmonary edema. 3. Intraluminal high density in the esophagus probably related to retainedingested material. Attention to follow-up. 4. Additional findings and details as above. Sandrine Ferris MD RAD CT Final Result * (ABNORMAL) GLUCOSE METER, POINT OF CARE (10/05/2024 12:11 PM EST) GLUCOSE - POCT 152(H) 70 - 120 mg/dL 10/05/2024 12:40 PM EST [facility] POCT (34-60) Blood Whole blood specimen / Unknown 10/05/2024 12:11 PM EST 10/05/2024 12:40 PM EST Gilmar Ford DO LAB POINT OF C ARE TEST DOCKED DEVICE UNSOLICITED RESULTS Final Result [facility] POCT (90-60) [address] [place] [address] * RESPIRATORY PATHOGEN PANEL, PCR (10/05/2024 12:09 PM EST) Adenovirus by PCR Negative Negative 2:19 PM EST [facility] Coronavirus 229E by PCR Negative Negative 10/05/2024 2:19 PM EST [facility] Coronavirus HKU1 by PCR Negative Negative 10/05/2024 2:19 PM EST [facility] Coronavirus NL63 by PCR Negative Negative 10/05/2024 2:19 PM EST [facility] Coronavirus OC43 by PCR Negative Negative 10/05/2024 2:19 PM EST LAB[facility] Coronavirus SARS-CoV-2 by PCR Negative Negative 10/05/2024 2:19 PM EST [facility] Human Metapneumovirus by PCR Negative Negative 10/05/2024 2:19 PM EST LAB[facility] Rhinovirus/Enterovi myriam by PCR Negative Negative 10/05/2024 2:19 PM EST [facility] Influenza A Virus by PCR Negative Negative 10/05/2024 2:19 PM EST [facility] Influenza B Virus by PCR Negative Negative 10/05/2024 2:19 PM EST [facility] Parainfluenza Virus 1 by PCR Negative Negative 10/05/2024 2:19 PM EST [facility] Parainfluenza Virus 2 by PCR Negative Negative 10/05/2024 2:19 PM EST [facility] Parainfluenza Virus 3 by PCR Negative Negative 10/05/2024 2:19 PM EST [facility] Parainfluenza Virus 4 by PCR Negative Negative 10/05/2024 2:19 PM EST [facility] Respiratory Syncytial Virus by PCR Negative Negative 10/05/2024 2:19 PM EST [facility] Bordetella pertussis by PCR Negative Negative 10/05/2024 2:19 PM EST [facility] Chlamydia pneumoniae by PCR Negative Negative 10/05/2024 2:19 PM EST [facility] Mycoplasma pneumoniae by PCR Negative Negative 10/05/2024 2:19 PM EST [facility] Bordetella parapertussis by PCR Negative Negative 10/05/2024 2:19 PM EST LAB[facility] Comment: The primers that detect Rhinovirus may cross react with some Enterorviruses. The validation of bronchial specimens, tracheal aspirates, and throats for this assay was developed and performance characteristics determined by [employer]. The validation of alternate specimen types has not been cleared or approved by the U.S. Food and Drug Administration (FDA). It has been determined that such clearance or approval is not necessary. Upper Respiratory Mid-turbinate nasal swab / Unknown Non-blood Collection / Unknown 10/05/2024 12:09 PM EST 10/05/2024 12:41 PM EST Sandrine Ferris MD LAB MICRO - GENERAL ORDERABLES F inal Result Performing Organization Address City/[facility]/ZIP [place] [address] * FERRITIN (10/05/2024 11:47 AM EST) [facility] Ferritin 73 13 - 150 ng/mL 10/05/2024 12:33 PM EST [facility] Comment:Postmenopausal women have higher ferritin levels than pre-menopausal women. The above reference interval is based on pre-menopausal women. Blood Venous blood specimen / Unknown Venipuncture / Unknown 10/05/2024 11:47 AM EST 10/05/2024 12:04 PM EST Sandrine Ferris MD LAB BLOOD ORDERABLES Final Resul t Performing Organization Address [facility]/ZIP Co de Phone Number LABORATORY [address] [address] * IRON SCREEN, INCLUDING TIBC (10/05/2024 11:47 AM EST) Pathologist [facility] Iron 52 33 - 151 ug/dL 10/05/2024 12:33 PM EST [facility] Iron Binding Capacity 272 250 - 425 ug/dL 10/05/2024 12:33 PM EST [facility] Transferrin Saturation Percent 19 15 - 55 % 10/05/2024 12:33 PM EST [facility] Blood Venous blood specimen / Unknown Venipuncture / Unknown 10/05/2024 11:47 AM EST 10/05/2024 12:04 PM EST us Sandrine Ferris MD LAB BLOOD ORDERABLES Final Resul t LAB[facility]ATORY [facility] [address] [facility] [place] [address] * (ABNORMAL) BLOOD GAS, ARTERIAL (10/05/2024 11:07 AM EST) Temperature 37.0 C 10/05/2024 11:16 AM EST LAB[facility]ORY [facility] pH, Arterial 7.265(L) 7.350 - 7.450 units 10/05/2024 11:16 AM EST [facility] pCO2, Arterial 78.0(HH) 35.0 - 45.0 mmHg 10/05/2024 11:16 AM EST LAB[facility] Comment: Results rechecked. pO2, Arterial 59.6(L) 75.0 - 100.0 mmHg 10/05/2024 11:16 AM EST LAB[facility]ORY [facility] Base Excess, Arterial 5.6(H) -2.0 - 2.0 mmol/L 10/05/2024 11:16 AM EST [facility] HGB 10.9(L) 12.0 - 15.3 g/dL 10/05/2024 11:16 AM EST LAB[facility] Oxyhemoglobin, Arterial 86.3(L) 94.0 - 99.0 % total Hgb 10/05/2024 11:16 AM EST [facility] Carboxyhemoglob in, Whole Blood 1.4 <=1.5 % total Hgb 10/05/2024 11:16 AM EST [facility] Comment:Smokers: 0-9.0 % Methemoglobin, Whole Blood 0.4 <=1.5 % total Hgb 10/05/2024 11:16 AM EST [facility] Reduced Hemoglobin, Arterial 11.9(H) 0.0 - 5.0 % total Hgb 10/05/2024 11:16 AM EST [facility] O2 Content, Arterial 13.3(L) 15.0 - 24.0 %vol 10/05/2024 11:16 AM EST [facility] FiO2 Not Provided % 10/05/2024 11:16 AM EST [facility] O2 Flow, Arterial 6 L/min 10/05/2024 11:16 AM EST [facility] Bicarbonate, Whole Blood 34.2(H) 23.0 - 31.0 mmol/L 10/05/2024 11:16 AM EST [facility] Blood Arterial blood specimen / Unknown Arterial Puncture / Unknown 10/05/2024 11:07 AM EST 10/05/2024 11:11 AM EST us Sandrine Ferris MD LAB BLOOD ORDERABLES Final Resul t LAB[facility]ORY [facility] [address] [place] [address] * FOLIC ACID (10/05/2024 3:50 AM EST) Folic Acid 19.8 >4.5 ng/mL 10/06/2024 12:37 AM EST [facility] Blood Venous blood specimen / Unknown Venipuncture / Unknown 10/05/2024 3:50 AM EST 10/05/2024 3:53 AM EST us Sandrine Ferris MD LAB BLOOD ORDERABLES Final Resul t [facility] [address] [place] [address] * VITAMIN B12 (10/05/2024 3:50 AM EST) Vitamin B12 705 232 - 1,245 pg/mL 10/06/2024 12:37 AM EST [facility] Blood Venous blood specimen / Unknown Venipuncture / Unknown 10/05/2024 3:50 AM EST 10/05/2024 3:53 AM EST us Sandrine Ferris MD LAB BLOOD ORDERABLES Final Resul t [facility] [address] [place] [address] * PHOSPHORUS (10/05/2024 3:50 AM EST) Phosphorus 4.2 2.5 - 4.8 mg/dL 10/05/2024 7:57 AM EST LAB[facility] Blood Venous blood specimen / Unknown Venipuncture / Unknown 10/05/2024 3:50 AM EST 10/05/2024 3:53 AM EST Sandrine Ferris MD LAB BLOOD ORDERABLES Final Resul t Performing Organization Address City/[facility] Co de Phone Number LABORATORY [facility] [address] [place] [address] * MAGNESIUM (10/05/2024 3:50 AM EST) Magnesium 1.9 1.5 - 2.6 mg/dL 10/05/2024 4:48 AM EST LABORATORY [facility] Blood Venous blood specimen / Unknown Venipuncture / Unknown 10/05/2024 3:50 AM EST 10/05/2024 3:53 AM EST Adan Conroy MD LAB BLOOD ORDERABLES Final Result Performing Organization Address City/[facility]/ZIP Co de Phone Number LABORATORY [facility] [address] [place] [address] * (ABNORMAL) CBC (10/05/2024 3:50 AM EST) WBC 6.06 4.00 - 10.80 K/uL 10/05/2024 3:56 AM EST [facility]ORY [facility] RBC 3.98 3.85 - 5.15 M/uL 10/05/2024 3:56 AM EST [facility] HGB 10.5(L) 12.0 - 15.3 g/dL 10/05/2024 3:56 AM EST [facility] HCT 36.5 36.0 - 45.2 % 10/05/2024 3:56 AM EST [facility] MCV 91.7 81.5 - 97.5 fL 10/05/2024 3:56 AM EST [facility] MCH 26.4 27.0 - 34.0 pg 10/05/2024 3:56 AM EST [facility] MCHC 28.8 32.0 - 36.0 g/dL 10/05/2024 3:56 AM EST [facility] RDW 14.6 11.5 - 15.5 % 10/05/2024 3:56 AM EST [facility] PLT 156 140 - 400 K/uL 10/05/2024 3:56 AM EST [facility] MPV 9.1 6.6 - 11.1 fL 10/05/2024 3:56 AM EST [facility] nRBCs 0 <=0 /100 WBCs 10/05/2024 3:56 AM EST [facility] Blood Venous blood specimen / Unknown Venipuncture / Unknown 10/05/2024 3:50 AM EST 10/05/2024 3:53 AM EST us Adan Conroy MD LAB BLOOD ORDERABLES Final Result [facility] [address] [place] [address] * (ABNORMAL) BASIC METABOLIC PANEL (10/05/2024 3:50 AM EST) BUN 45(H) 6 - 20 mg/dL 10/05/2024 4:48 AM EST [facility] CREATININE 1.5(H) 0.5 - 1.0 mg/dL 10/05/2024 4:48 AM EST LAB[facility]ORY [facility] EGFR 38(L) >=60 mL/min 10/05/2024 4:48 AM EST LAB[facility]ATORY [facility] Comment:eGFR is calculated b ased on the CKD-EPI 2020 equation. SODIUM 139 135 - 146 mmol/L 10/05/2024 4:48 AM EST LAB[facility] POTASSIUM 4.9 3.5 - 5.1 mmol/L 10/05/2024 4:48 AM EST [facility] CHLORIDE 102 98 - 107 mmol/L 10/05/2024 4:48 AM EST [facility] CO2 29 22 - 32 mmol/L 10/05/2024 4:48 AM EST [facility] ANION GAP 8 7 - 15 mmol/L 10/05/2024 4:48 AM EST [facility] GLUCOSE 136(H) 70 - 120 mg/dL 10/05/2024 4:48 AM EST [facility] CALCIUM 8.4 8.4 - 10.2 mg/dL 10/05/2024 4:48 AM EST [facility] Blood Venous blood specimen / Unknown Venipuncture / Unknown 10/05/2024 3:50 AM EST 10/05/2024 3:53 AM EST us Adan Conroy MD LAB BLOOD ORDERABLES Final Result [facility]ORY [facility] [address] [place] [address] * (ABNORMAL) BLOOD GAS, VENOUS (10/05/2024 3:50 AM EST) Temperature 37.0 C 10/05/2024 3:58 AM EST LAB[facility]ORY [facility] pH, Venous 7.270(L) 7.320 - 7.430 units 10/05/2024 3:58 AM EST LAB[facility]ORY [facility] pCO2, Venous 72.5(H) 40.0 - 60.0 mmHg 10/05/2024 3:58 AM EST LAB[facility] pO2, Venous 52.0(H) 25.0 - 50.0 mmHg 10/05/2024 3:58 AM EST LAB[facility]ORY [facility] Base Excess, Venous 4.0(H) -2.0 - 2.0 mmol/L 10/05/2024 3:58 AM EST LAB[facility] HGB 10.9(L) 12.0 - 15.3 g/dL 10/05/2024 3:58 AM EST LAB[facility]ORY [facility] Oxyhemoglobin, Venous 80.7 40.0 - 85.0 % total Hgb 10/05/2024 3:58 AM EST LAB[facility]ORY [facility] Carboxyhemoglobi n, Whole Blood 1.3 <=1.5 % total Hgb 10/05/2024 3:58 AM EST LAB[facility]ORY [facility] Comment:Smokers: 0-9.0 % Methemoglobin, Whole Blood 0.4 <=1.5 % total Hgb 10/05/2024 3:58 AM EST LAB[facility] Reduced Hemoglobin, Venous 17.6 % total Hgb 10/05/2024 3:58 AM EST LAB[facility] O2 Content, Venous 12.4 7.0 - 18.0 %vol 10/05/2024 3:58 AM EST LAB[facility] Bicarbonate, Whole Blood 32.2(H) 23.0 - 31.0 mmol/L 10/05/2024 3:58 AM EST LAB[facility]ORY [facility] Blood Venous blood specimen / Unknown Venipuncture / Unknown 10/05/2024 3:50 AM EST 10/05/2024 3:53 AM EST us Adan Conroy MD LAB BLOOD ORDERABLES Final Result Performing Organization Address City/State/[facility] Co de Phone Number LABORATORY [facility] [address] [place], [place] [address] [address] * (ABNORMAL) BLOOD GAS, ARTERIAL (10/04/2024 9:26 PM EST) Temperature 37.0 C 10/04/2024 9:39 PM EST LABORATORY [facility] pH, Arterial 7.257(L) 7.350 - 7.450 units 10/04/2024 9:39 PM EST LAB[facility]ATORY [facility] pCO2, Arterial 74.9(HH) 35.0 - 45.0 mmHg 10/04/2024 9:39 PM EST LAB[facility]ORY [facility] pO2, Arterial 67.0(L) 75.0 - 100.0 mmHg 10/04/2024 9:39 PM EST LAB[facility]ATORY [facility] Base Excess, Arterial 3.7(H) -2.0 - 2.0 mmol/L 10/04/2024 9:39 PM EST LAB[facility]ATORY [facility] HGB 11.3(L) 12.0 - 15.3 g/dL 10/04/2024 9:39 PM EST LAB[facility]ATORY [facility] Oxyhemoglobin, Arterial 89.0(L) 94.0 - 99.0 % total Hgb 10/04/2024 9:39 PM EST LAB[facility]ATORY [facility] Carboxyhemoglob in, Whole Blood 1.3 <=1.5 % total Hgb 10/04/2024 9:39 PM EST LAB[facility]ATORY [facility] Comment:Smokers: 0-9.0 % Methemoglobin, Whole Blood 0.4 <=1.5 % total Hgb 10/04/2024 9:39 PM EST LAB[facility]ORY [facility] Reduced Hemoglobin, Arterial 9.3(H) 0.0 - 5.0 % total Hgb 10/04/2024 9:39 PM EST LAB[facility]ORY [facility] O2 Content, Arterial 14.2(L) 15.0 - 24.0 %vol 10/04/2024 9:39 PM EST LAB[facility]ATORY [facility] FiO2 Not Provided % 10/04/2024 9:39 PM EST LAB[facility] O2 Flow, Arterial Not Provided L/min 10/04/2024 9:39 PM EST LAB[facility] Bicarbonate, Whole Blood 32.2(H) 23.0 - 31.0 mmol/L 10/04/2024 9:39 PM EST LAB[facility]ATORY [facility] Blood Arterial blood specimen / Unknown Arterial Puncture / Unknown 10/04/2024 9:26 PM EST 10/04/2024 9:35 PM EST us Marion GANN LAB BLOOD ORDERABLES Fi nal Result LABORATORY [facility] [address] [place] [address] * (ABNORMAL) GLUCOSE METER, POINT OF CARE (10/04/2024 8:38 PM EST) [facility] GLUCOSE - POCT 175(H) 70 - 120 mg/dL 10/04/2024 8:46 PM EST [facility] POCT (34-60) Blood Whole blood specimen / Unknown 10/04/2024 8:38 PM EST 10/04/2024 8:46 PM EST Dilan Hernandez MD LAB POINT OF CARE TEST DOCKED DEVICE UNSOLICITED RESULTS Final Result [facility] POCT (34-60) [address] [place] [address] * (ABNORMAL) GLUCOSE METER, POINT OF CARE (10/04/2024 6:21 PM EST) [facility] GLUCOSE - POCT 142(H) 70 - 120 mg/dL 10/05/2024 5:06 AM EST [facility] POCT (34-60) Blood Whole blood specimen / Unknown 10/04/2024 6:21 PM EST 10/05/2024 5:06 AM EST us Dilan Hernandez MD LAB POINT OF CARE TEST DOCKED DEVICE UNSOLICITED RESULTS Final Result [facility] POCT (34-60) [address] [place] [address] * (ABNORMAL) BLOOD GAS, ARTERIAL (10/04/2024 3:38 PM EST) [facility] Temperature 37.0 C 10/04/2024 3:52 PM EST LABORATORY [facility] pH, Arterial 7.229(L) 7.350 - 7.450 units 10/04/2024 3:52 PM EST LABORATORY [facility] pCO2, Arterial 76.7(HH) 35.0 - 45.0 mmHg 10/04/2024 3:52 PM EST LABORATORY [facility] pO2, Arterial 85.7 75.0 - 100.0 mmHg 10/04/2024 3:52 PM EST LAB[facility]ATORY [facility] Base Excess, Arterial 2.0 -2.0 - 2.0 mmol/L 10/04/2024 3:52 PM EST LAB[facility]ATORY [facility] HGB 11.0(L) 12.0 - 15.3 g/dL 10/04/2024 3:52 PM EST LAB[facility]ATORY [facility] Oxyhemoglobin, Arterial 93.3(L) 94.0 - 99.0 % total Hgb 10/04/2024 3:52 PM EST LAB[facility]ATORY [facility] Carboxyhemoglob in, Whole Blood 1.3 <=1.5 % total Hgb 10/04/2024 3:52 PM EST LAB[facility]ATORY [facility] Comment:Smokers: 0-9.0 % Methemoglobin, Whole Blood 0.4 <=1.5 % total Hgb 10/04/2024 3:52 PM EST LAB[facility]ATORY [facility] Reduced Hemoglobin, Arterial 5.0 0.0 - 5.0 % total Hgb 10/04/2024 3:52 PM EST LAB[facility]ATORY [facility] O2 Content, Arterial 14.6(L) 15.0 - 24.0 %vol 10/04/2024 3:52 PM EST LAB[facility]ATORY [facility] FiO2 40 % 10/04/2024 3:52 PM EST LAB[facility]ORY [facility] O2 Flow, Arterial Not Provided L/min 10/04/2024 3:52 PM EST LAB[facility]ORY [facility] Bicarbonate, Whole Blood 30.9 23.0 - 31.0 mmol/L 10/04/2024 3:52 PM EST LAB[facility]ORY [facility] Blood Arterial blood specimen / Unknown Arterial Puncture / Unknown 10/04/2024 3:38 PM EST 10/04/2024 3:44 PM EST Jamal Canales CHAIN OFFBE[employer] LAB BLOOD ORDERABLES Final Resu lt Performing Organization Address City/[facility]/ZIP [place] [address] * POTASSIUM, WHOLE BLOOD (10/04/2024 1:46 PM EST) Potassium 5.0 3.5 - 5.1 mmol/L 10/04/2024 2:02 PM EST LAB[facility]ATORY [facility] Blood Venous blood specimen / Unknown Venipuncture / Unknown 10/04/2024 1:46 PM EST 10/04/2024 1:56 PM EST Dilan Hernandez MD LAB BLOOD ORDERABLES Final Result Performing Organization Address City/[facility]/ZIP Co de Phone Number LABORATORY [address] [address] * TSH WITH FREE T4 IF INDICATED (10/04/2024 1:46 PM EST) TSH 1.69 0.27 - 4.20 uIU/mL 10/04/2024 2:25 PM EST LAB[facility]ATORY [facility] Blood Venous blood specimen / Unknown Venipuncture / Unknown 10/04/2024 1:46 PM EST 10/04/2024 1:56 PM EST us Luis Felipe Franco MD LAB BLOOD ORDERABLES Final Res ult LABORATORY [facility] [address] [place] [address] * (ABNORMAL) BASIC METABOLIC PANEL (10/04/2024 1:46 PM EST) Pathologist [facility] BUN 46(H) 6 - 20 mg/dL 10/04/2024 2:25 PM EST LAB[facility]ATORY [facility] CREATININE 1.6(H) 0.5 - 1.0 mg/dL 10/04/2024 2:25 PM EST LAB[facility]ATORY [facility] EGFR 35(L) >=60 mL/min 10/04/2024 2:25 PM EST LAB[facility]ATORY [facility] Comment:eGFR is calculated b ased on the CKD-EPI 2020 equation. SODIUM 139 135 - 146 mmol/L 10/04/2024 2:25 PM EST LAB[facility] POTASSIUM 5.1 3.5 - 5.1 mmol/L 10/04/2024 2:25 PM EST [facility] CHLORIDE 101 98 - 107 mmol/L 10/04/2024 2:25 PM EST [facility] CO2 29 22 - 32 mmol/L 10/04/2024 2:25 PM EST LAB[facility] ANION GAP 9 7 - 15 mmol/L 10/04/2024 2:25 PM EST LAB[facility] GLUCOSE 131(H) 70 - 120 mg/dL 10/04/2024 2:25 PM EST LAB[facility]ORY [facility] CALCIUM 8.6 8.4 - 10.2 mg/dL 10/04/2024 2:25 PM EST LAB[facility] Blood Venous blood specimen / Unknown Venipuncture / Unknown 10/04/2024 1:46 PM EST 10/04/2024 1:56 PM EST us Marion GANN LAB BLOOD ORDERABLES Fi nal Result Performing Organization Address City/[facility]/ZIP Co de Phone Number LABORATORY [facility] [address] [place] [address] * (ABNORMAL) GLUCOSE METER, POINT OF CARE (10/04/2024 12:17 PM EST) GLUCOSE - POCT 136(H) 70 - 120 mg/dL 10/04/2024 12:55 PM EST [facility] POCT (34-60) Blood Whole blood specimen / Unknown 10/04/2024 12:17 PM EST 10/04/2024 12:54 PM EST Dilan Hernandez MD LAB POINT OF CARE TEST DOCKED DEVICE UNSOLICITED RESULTS Final Result [facility] POCT (34-60) [address] [place] [address] * (ABNORMAL) BLOOD GAS, ARTERIAL (10/04/2024 12:09 PM EST) Pathologist [facility] Temperature 37.0 C 10/04/2024 12:23 PM EST LABORATORY [facility] pH, Arterial 7.215(L) 7.350 - 7.450 units 10/04/2024 12:23 PM EST LABORATORY [facility] pCO2, Arterial 79.5(HH) 35.0 - 45.0 mmHg 10/04/2024 12:23 PM EST LABORATORY [facility] pO2, Arterial 86.9 75.0 - 100.0 mmHg 10/04/2024 12:23 PM EST LABORATORY [facility] Base Excess, Arterial 1.6 -2.0 - 2.0 mmol/L 10/04/2024 12:23 PM EST LABORATORY [facility] HGB 11.4(L) 12.0 - 15.3 g/dL 10/04/2024 12:23 PM EST LAB[facility]ATORY [facility] Oxyhemoglobin, Arterial 93.3(L) 94.0 - 99.0 % total Hgb 10/04/2024 12:23 PM EST LAB[facility]ATORY [facility] Carboxyhemoglob in, Whole Blood 1.3 <=1.5 % total Hgb 10/04/2024 12:23 PM EST LAB[facility]ATORY [facility] Comment:Smokers: 0-9.0 % Methemoglobin, Whole Blood 0.5 <=1.5 % total Hgb 10/04/2024 12:23 PM EST LAB[facility]ATORY [facility] Reduced Hemoglobin, Arterial 4.9 0.0 - 5.0 % total Hgb 10/04/2024 12:23 PM EST LAB[facility]ATORY [facility] O2 Content, Arterial 15.1 15.0 - 24.0 %vol 10/04/2024 12:23 PM EST LAB[facility]ATORY [facility] FiO2 40 % 10/04/2024 12:23 PM EST LAB[facility] O2 Flow, Arterial Not Provided L/min 10/04/2024 12:23 PM EST LAB[facility]ATORY [facility] Bicarbonate, Whole Blood 31.0 23.0 - 31.0 mmol/L 10/04/2024 12:23 PM EST LAB[facility]ATORY [facility] Blood Arterial blood specimen / Unknown Arterial Puncture / Unknown 10/04/2024 12:09 PM EST 10/04/2024 12:18 PM EST us Marion GANN LAB BLOOD ORDERABLES Fi nal Result LAB[facility]ATORY [facility] [address] [place] [address] * (ABNORMAL) BLOOD GAS, VENOUS (10/04/2024 9:40 AM EST) Temperature 37.0 C 10/04/2024 9:57 AM EST LABORATORY [facility] pH, Venous 7.176(LL) 7.320 - 7.430 units 10/04/2024 9:57 AM EST LAB[facility]ATORY [facility] pCO2, Venous 91.4(H) 40.0 - 60.0 mmHg 10/04/2024 9:57 AM EST LAB[facility]ATORY [facility] pO2, Venous 45.4 25.0 - 50.0 mmHg 10/04/2024 9:57 AM EST LABORATORY [facility] Base Excess, Venous 1.7 -2.0 - 2.0 mmol/L 10/04/2024 9:57 AM EST LAB[facility]ATORY [facility] HGB 12.1 12.0 - 15.3 g/dL 10/04/2024 9:57 AM EST LAB[facility]ATORY [facility] Oxyhemoglobin, Venous 70.2 40.0 - 85.0 % total Hgb 10/04/2024 9:57 AM EST LABORATORY [facility] Carboxyhemoglobi n, Whole Blood 1.2 <=1.5 % total Hgb 10/04/2024 9:57 AM EST LAB[facility]ATORY [facility] Comment:Smokers: 0-9.0 % Methemoglobin, Whole Blood 0.3 <=1.5 % total Hgb 10/04/2024 9:57 AM EST LAB[facility]ATORY [facility] Reduced Hemoglobin, Venous 28.3 % total Hgb 10/04/2024 9:57 AM EST LAB[facility]ATORY [facility] O2 Content, Venous 11.9 7.0 - 18.0 %vol 10/04/2024 9:57 AM EST LAB[facility]ATORY [facility] Bicarbonate, Whole Blood 32.5(H) 23.0 - 31.0 mmol/L 10/04/2024 9:57 AM EST LAB[facility]ATORY [facility] Blood Venous blood specimen / Unknown Venipuncture / Unknown 10/04/2024 9:40 AM EST 10/04/2024 9:50 AM EST Marion GANN LAB BLOOD ORDERABLES Fi nal Result Performing Organization Address City/[facility]/ZIP Co de Phone Number LABORATORY [facility] [address] [place] [address] * GLUCOSE METER, POINT OF CARE (10/04/2024 8:55 AM EST) [facility] GLUCOSE - POCT 87 70 - 120 mg/dL 10/04/2024 8:59 AM EST [facility] POCT (34-60) Blood Whole blood specimen / Unknown 10/04/2024 8:55 AM EST 10/04/2024 8:59 AM EST Dilan Hernandez MD LAB POINT OF CARE TEST DOCKED DEVICE UNSOLICITED RESULTS Final Result Performing Organization Address City/[facility]/ZIP Co de Phone Number [facility] POCT (34-60) [address] [place] [address] * (ABNORMAL) DIFFERENTIAL, AUTOMATED (10/04/2024 7:55 AM EST) WBC 6.64 4.00 - 10.80 K/uL 10/04/2024 8:14 AM EST LABORATORY [facility] Neutrophils % 68.2 40.0 - 75.0 % 10/04/2024 8:14 AM EST LABORATORY [facility] Lymphocytes % 15.1(L) 18.0 - 42.0 % 10/04/2024 8:14 AM EST LABORATORY [facility] Monocytes % 9.6 1.0 - 11.0 % 10/04/2024 8:14 AM EST LAB[facility]ATORY [facility] Eosinophils % 4.8 0.0 - 6.0 % 10/04/2024 8:14 AM EST LAB[facility]ATORY [facility] Basophils % 0.8 0.0 - 2.0 % 10/04/2024 8:14 AM EST LAB[facility]ATORY [facility] Immature Granulocytes % 1.5 0.0 - 2.0 % 10/04/2024 8:14 AM EST LAB[facility]ATORY [facility] Absolute Neutrophils 4.53 1.80 - 7.70 K/uL 10/04/2024 8:14 AM EST LAB[facility]ATORY [facility] Absolute Lymphocytes 1.00 1.00 - 4.80 K/ul 10/04/2024 8:14 AM EST LAB[facility]ATORY [facility] Absolute Monocytes 0.64 0.00 - 1.10 K/uL 10/04/2024 8:14 AM EST LAB[facility]ATORY [facility] Absolute Eosinophils 0.32 0.00 - 0.70 K/uL 10/04/2024 8:14 AM EST LAB[facility]ATORY [facility] Absolute Basophils 0.05 0.00 - 0.20 K/uL 10/04/2024 8:14 AM EST LAB[facility]ATORY [facility] Absolute Immature Granulocytes 0.10 0.00 - 0.20 K/uL 10/04/2024 8:14 AM EST LAB[facility]ATORY [facility] Blood Venous blood specimen / Unknown Venipuncture / Unknown 10/04/2024 7:55 AM EST 10/04/2024 8:09 AM EST us Usha Harden MD LAB BLOOD ORDERABLES Final Resul t LABORATORY [facility] [address] [facility] [place] [address] * (ABNORMAL) CBC (10/04/2024 7:55 AM EST) WBC 6.64 4.00 - 10.80 K/uL 10/04/2024 8:14 AM EST LABORATORY [facility] RBC 4.16 3.85 - 5.15 M/uL 10/04/2024 8:14 AM EST LAB[facility]ATORY [facility] HGB 11.3(L) 12.0 - 15.3 g/dL 10/04/2024 8:14 AM EST LAB[facility]ATORY [facility] HCT 38.7 36.0 - 45.2 % 10/04/2024 8:14 AM EST LAB[facility]ATORY [facility] MCV 93.0 81.5 - 97.5 fL 10/04/2024 8:14 AM EST LAB[facility]ATORY [facility] MCH 27.2 27.0 - 34.0 pg 10/04/2024 8:14 AM EST LAB[facility]ATORY [facility] MCHC 29.2 32.0 - 36.0 g/dL 10/04/2024 8:14 AM EST LAB[facility]ATORY [facility] RDW 14.8 11.5 - 15.5 % 10/04/2024 8:14 AM EST LAB[facility]ATORY [facility] PLT 172 140 - 400 K/uL 10/04/2024 8:14 AM EST LAB[facility]ATORY [facility] MPV 9.0 6.6 - 11.1 fL 10/04/2024 8:14 AM EST LAB[facility]ATORY [facility] nRBCs 0 <=0 /100 WBCs 10/04/2024 8:14 AM EST LAB[facility]ORY [facility] Blood Venous blood specimen / Unknown Venipuncture / Unknown 10/04/2024 7:55 AM EST 10/04/2024 8:09 AM EST us Usha Harden MD LAB BLOOD ORDERABLES Final Resul t LABORATORY [facility] [address] [place] [address] * (ABNORMAL) COMPREHENSIVE METABOLIC PANEL (10/04/2024 7:55 AM EST) BUN 46(H) 6 - 20 mg/dL 10/04/2024 8:38 AM EST LABORATORY [facility] CREATININE 1.7(H) 0.5 - 1.0 mg/dL 10/04/2024 8:38 AM EST LABORATORY [facility] EGFR 32(L) >=60 mL/min 10/04/2024 8:38 AM EST LABORATORY [facility] Comment:eGFR is calculated b ased on the CKD-EPI 2020 equation. SODIUM 139 135 - 146 mmol/L 10/04/2024 8:38 AM EST LABORATORY [facility] POTASSIUM 5.4(H) 3.5 - 5.1 mmol/L 10/04/2024 8:38 AM EST LAB[facility]ATORY [facility] CHLORIDE 102 98 - 107 mmol/L 10/04/2024 8:38 AM EST LAB[facility]ATORY [facility] CO2 31 22 - 32 mmol/L 10/04/2024 8:38 AM EST LAB[facility]ATORY [facility] ANION GAP 6(L) 7 - 15 mmol/L 10/04/2024 8:38 AM EST LAB[facility]ORY [facility] GLUCOSE 100 70 - 120 mg/dL 10/04/2024 8:38 AM EST LAB[facility]ATORY [facility] Albumin 3.4(L) 3.8 - 5.0 g/dL 10/04/2024 8:38 AM EST LAB[facility]ATORY [facility] AST 17 10 - 35 U/L 10/04/2024 8:38 AM EST LABORATORY [facility] Comment:Results may be false ly elevated due to hemolysis. Alkaline Phosphatase 84 35 - 130 U/L 10/04/2024 8:38 AM EST LAB[facility]ATORY [facility] Bilirubin, Total 0.3 <=1.2 mg/dL 10/04/2024 8:38 AM EST LAB[facility]ATORY [facility] CALCIUM 8.6 8.4 - 10.2 mg/dL 10/04/2024 8:38 AM EST LAB[facility]ATORY [facility] Protein 7.2 6.0 - 8.3 g/dL 10/04/2024 8:38 AM EST LAB[facility]ATORY [facility] ALT 7(L) 10 - 35 U/L 10/04/2024 8:38 AM EST LAB[facility]ATORY [facility] Blood Venous blood specimen / Unknown Venipuncture / Unknown 10/04/2024 7:55 AM EST 10/04/2024 8:09 AM EST us Usha Harden MD LAB BLOOD ORDERABLES Final Resul t LABORATORY [facility] [address] [facility] [place] [address] * (ABNORMAL) GLUCOSE METER, POINT OF CARE (10/03/2024 9:15 PM EST) GLUCOSE - POCT 151(H) 70 - 120 mg/dL 10/03/2024 9:33 PM EST [facility] POCT (34-60) Blood Whole blood specimen / Unknown 10/03/2024 9:15 PM EST 10/03/2024 9:32 PM EST Usha Harden MD LAB POINT OF CARE TE ST DOCKED DEVICE UNSOLICITED RESULTS Final Result Performing Organization Address [facility] Co de Phone Number [facility] POCT (34-60) [address] [place] [address] * (ABNORMAL) GLUCOSE METER, POINT OF CARE (10/03/2024 6:03 PM EST) [facility] GLUCOSE - POCT 163(H) 70 - 120 mg/dL 10/03/2024 6:06 PM EST [facility] POCT (34-60) Blood Whole blood specimen / Unknown 10/03/2024 6:03 PM EST 10/03/2024 6:06 PM EST Usha Harden MD LAB POINT OF CARE TE ST DOCKED DEVICE UNSOLICITED RESULTS Final Result Performing Organization Address [facility] de Phone Number [facility] POCT ([phone]) [address] [place] [id number] * MRSA SCREEN, PCR (10/03/2024 12:08 PM EST) [facility] MRSA PCR Result Negative Negative 2:29 PM EST LABORATORY GW Comment:No Methicillin resis tant Staphylococcus aureus detected by PCR (amplified probe). Upper Respiratory Swab of internal nose / Unknown Non-blood Collection / Unknown 10/03/2024 12:08 PM EST 10/03/2024 12:32 PM EST Liana Baxter MD LAB MICRO - GENERAL ORDERABLES F inal Result Performing Organization Address [facility] de Phone Number LABORATORY [facility] [address] [place] [address] * (ABNORMAL) GLUCOSE METER, POINT OF CARE (10/03/2024 12:01 PM EST) GLUCOSE - POCT 197(H) 70 - 120 mg/dL 10/03/2024 12:17 PM EST [facility] POCT (34-60) Blood Whole blood specimen / Unknown 10/03/2024 12:01 PM EST 10/03/2024 12:17 PM EST Usha Harden MD LAB POINT OF CARE TE ST DOCKED DEVICE UNSOLICITED RESULTS Final Result Performing Organization Address City/[facility]/ZIP Co de Phone Number [facility] POCT (34-60) [address] [place] [address] * (ABNORMAL) GLUCOSE METER, POINT OF CARE (10/03/2024 8:35 AM EST) [facility] Signature GLUCOSE - POCT 149(H) 70 - 120 mg/dL 10/03/2024 10:25 AM EST [facility] POCT (34-60) Blood Whole blood specimen / Unknown 10/03/2024 8:35 AM EST 10/03/2024 10:25 AM EST Usha Harden MD LAB POINT OF CARE TE ST DOCKED DEVICE UNSOLICITED RESULTS Final Result [facility] POCT (34-60) [address] [place] [address] * (ABNORMAL) HEMOGLOBIN A1C (10/03/2024 4:48 AM EST) Pathologist [facility] Hemoglobin A1C 8.2(H) 4.0 - 5.6 % 10/03/2024 5:33 AM EST LABORATORY [facility] Comment:The use of HbA1c to monitor glycemic status is based on normal hemoglobin and HbA composition. This test should not be used in patients with abnormal hemoglobin that affects the half life of the red blood cell or the in vivo glycation rates. Estimated Average Glucose 189(H) <126 mg/dL 10/03/2024 5:[address] [facility] Blood Venous blood specimen / Unknown Venipuncture / Unknown 10/03/2024 4:48 AM EST 10/03/2024 4:58 AM EST us Liana Baxter MD LAB BLOOD ORDERABLES Final Resul t Performing Organization Address City/[facility] [place] [address] * PHOSPHORUS (10/03/2024 4:48 AM EST) Phosphorus 4.6 2.5 - 4.8 mg/dL 10/03/2024 5:[address] [facility] Blood Venous blood specimen / Unknown Venipuncture / Unknown 10/03/2024 4:48 AM EST 10/03/2024 4:58 AM EST us Liana Baxter MD LAB BLOOD ORDERABLES Final Resul t Performing Organization Address [facility] [place] [address] * MAGNESIUM (10/03/2024 4:48 AM EST) Magnesium 1.9 1.5 - 2.6 mg/dL 10/03/2024 5:[address] [facility] Blood Venous blood specimen / Unknown Venipuncture / Unknown 10/03/2024 4:48 AM EST 10/03/2024 4:58 AM EST us Liana Baxter MD LAB BLOOD ORDERABLES Final Resul t Performing Organization Address [facility] [place] [address] * (ABNORMAL) BASIC METABOLIC PANEL (10/03/2024 4:48 AM EST) BUN 38(H) 6 - 20 mg/dL 10/03/2024 5:40 AM EST LABORATORY [facility] CREATININE 1.5(H) 0.5 - 1.0 mg/dL 10/03/2024 5:40 AM EST LABORATORY [facility] EGFR 39(L) >=60 mL/min 10/03/2024 5:40 AM EST LABORATORY [facility] Comment:eGFR is calculated b ased on the CKD-EPI 2020 equation. SODIUM 137 135 - 146 mmol/L 10/03/2024 5:40 AM EST LABORATORY [facility] POTASSIUM 5.2(H) 3.5 - 5.1 mmol/L 10/03/2024 5:40 AM EST LAB[facility]ATORY [facility] CHLORIDE 101 98 - 107 mmol/L 10/03/2024 5:40 AM EST LAB[facility]ATORY [facility] CO2 27 22 - 32 mmol/L 10/03/2024 5:40 AM EST LAB[facility]ATORY [facility] ANION GAP 9 7 - 15 mmol/L 10/03/2024 5:40 AM EST LAB[facility]ORY [facility] GLUCOSE 237(H) 70 - 120 mg/dL 10/03/2024 5:40 AM EST LAB[facility]ORY [facility] CALCIUM 8.5 8.4 - 10.2 mg/dL 10/03/2024 5:40 AM EST LAB[facility]ATORY [facility] Blood Venous blood specimen / Unknown Venipuncture / Unknown 10/03/2024 4:48 AM EST 10/03/2024 4:58 AM EST us Liana Baxter MD LAB BLOOD ORDERABLES Final Resul t LABORATORY [facility] [address] [place] [address] * (ABNORMAL) CBC (10/03/2024 4:48 AM EST) WBC 11.44(H) 4.00 - 10.80 K/uL 10/03/2024 5:06 AM EST LABORATORY [facility] RBC 4.39 3.85 - 5.15 M/uL 10/03/2024 5:06 AM EST LABORATORY [facility] HGB 11.8(L) 12.0 - 15.3 g/dL 10/03/2024 5:06 AM EST LAB[facility]ATORY [facility] HCT 40.4 36.0 - 45.2 % 10/03/2024 5:06 AM EST LAB[facility]ATORY [facility] MCV 92.0 81.5 - 97.5 fL 10/03/2024 5:06 AM EST LAB[facility]ATORY [facility] MCH 26.9 27.0 - 34.0 pg 10/03/2024 5:06 AM EST LAB[facility]ATORY [facility] MCHC 29.2 32.0 - 36.0 g/dL 10/03/2024 5:06 AM EST LAB[facility]ATORY [facility] RDW 14.5 11.5 - 15.5 % 10/03/2024 5:06 AM EST LAB[facility]ATORY [facility] PLT 214 140 - 400 K/uL 10/03/2024 5:06 AM EST LAB[facility]ORY [facility] MPV 8.9 6.6 - 11.1 fL 10/03/2024 5:06 AM EST LABORATORY [facility] nRBCs 0 <=0 /100 WBCs 10/03/2024 5:[address] [facility] Blood Venous blood specimen / Unknown Venipuncture / Unknown 10/03/2024 4:48 AM EST 10/03/2024 4:58 AM EST us Liana Baxter MD LAB BLOOD ORDERABLES Final Resul t LABORATORY [facility] [address] [place] [address] * (ABNORMAL) CULTURE, URINE, QUANTITATIVE (10/03/2024 4:06 AM EST) Culture Growth 10,000 to 100,000 colonies/mL Corynebacterium species(A) 10/04/2024 3:16 PM EST [facility] Urine Urine specimen / Unknown Non-blood Collection / Unknown 10/03/2024 4:06 AM EST 10/03/2024 4:17 AM EST Narrative LABORATORY [facility] - 10/04/2024 3:16 PM EST <10,000 colonies/ml mixed normal phill us Silvino Chávez MD LAB MICRO - GENERAL ORDERA BLES Final Result [facility] [address] [place] [address] * (ABNORMAL) URINALYSIS, REFLEX TO CULTURE (10/03/2024 4:06 AM EST) Color, Urine Light Yellow Colorless, Light Yellow, Yellow, Dark Yellow 10/03/2024 4:49 AM EST LABORATORY [facility] Clarity, Urine Slightly Cloudy(A) Clear 10/03/2024 4:49 AM EST LABORATORY [facility] Glucose, Urine 250(A) Negative mg/dL 10/03/2024 4:49 AM EST LAB[facility]ATORY [facility] Bilirubin, Urine Negative Negative 10/03/2024 4:49 AM EST LAB[facility]ATORY [facility] Ketone, Urine Negative Negative mg/dL 10/03/2024 4:49 AM EST LABORATORY [facility] Specific [place], Urine 1.012 1.003 - 1.030 10/03/2024 4:49 AM EST LAB[facility]ATORY [facility] Blood, Urine Negative Negative 10/03/2024 4:49 AM EST LAB[facility]ORY [facility] pH, Urine 5.5 5.0 - 7.5 Units 10/03/2024 4:49 AM EST LAB[facility]ATORY [facility] Protein, Urine Trace(A) Negative mg/dL 10/03/2024 4:49 AM EST LAB[facility]ATORY [facility] Urobilinogen, Urine Normal Normal mg/dL 10/03/2024 4:49 AM EST LAB[facility]ATORY [facility] Nitrite, Urine Negative Negative 10/03/2024 4:49 AM EST LAB[facility]ORY [facility] Esterase, Urine Large(A) Negative 10/03/2024 4:49 AM EST LAB[facility]ATORY [facility] RBC, Urine 6-9(A) 0 - 2 /HPF 10/03/2024 4:49 AM EST LAB[facility]ATORY [facility] WBC, Urine 30-49(A) 0 - 2 /HPF 10/03/2024 4:49 AM EST LABORATORY [facility] Bacteria, Urine 0-25 0 - 25 /HPF 10/03/2024 4:49 AM EST LAB[facility]ATORY [facility] Hyaline, Cast, Urine 5-9(A) None /LPF 10/03/2024 4:49 AM EST LABORATORY [facility] Culture, Urine 10/03/2024 4:49 AM EST LAB[facility]ATORY [facility] Comment:Quantitative urine c ulture to be performed Urine Urine specimen / Unknown Non-blood Collection / Unknown 10/03/2024 4:06 AM EST 10/03/2024 4:17 AM EST Silvino Chávez MD LAB URINE ORDERABLES Final Result Performing Organization Address [facility] Co de Phone Number LABORATORY [address] [address] * URINALYSIS, REFLEX TO CULTURE (CUP ONLY) (10/03/2024 4:06 AM EST) Urinalysis, Reflex to Culture Specimen Specimen collected and received 10/03/2024 6:[address] [facility] Urine Urine specimen / Unknown Non-blood Collection / Unknown 10/03/2024 4:06 AM EST 10/03/2024 4:17 AM EST Silvino Chávez MD LAB URINE ORDERABLES Final Result Performing Organization Address [facility] Co de Phone Number LABORATORY [address] [address] * (ABNORMAL) GLUCOSE METER, POINT OF CARE (10/03/2024 12:07 AM EST) [facility] GLUCOSE - POCT 229(H) 70 - 120 mg/dL 10/03/2024 12:11 AM EST [facility] POCT (34-60) Blood Whole blood specimen / Unknown 10/03/2024 12:07 AM EST 10/03/2024 12:11 AM EST Alice Segundo MD LAB POINT OF CARE TE ST DOCKED DEVICE UNSOLICITED RESULTS Final Result Performing Organization Address [facility] Co de Phone Number [facility] POCT (34-60) [address] [place] [id number] * (ABNORMAL) TROPONIN T, HIGH SENSITIVITY (10/02/2024 9:55 PM EST) Pathologist [facility] Troponin T, High Sensitivity 72(H) <=14 ng/L 10/02/2024 10:[address] [facility] Blood Venous blood specimen / Unknown Venipuncture / Unknown 10/02/2024 9:55 PM EST 10/02/2024 9:58 PM EST Silvino Chávez MD LAB BLOOD ORDERABLES Final Result LABORATORY [facility] [address] [place] [address] * XR CHEST 1 VIEW (10/02/2024 8:53 PM EST) Anatomical Region Laterality Modality Chest Computed Radiogr aphy 10/02/2024 10:1 0 PM EST Impressions 10/02/2024 10:07 PM EST IMPRESSION Vascular congestion Narrative 10/02/2024 10:07 PM EST EXAM XR CHEST 1 VIEW - 10/02/2024 8:53 pm HISTORY Shortness of breath TECHNIQUE Single-view chest COMPARISON None. FINDINGS Cardiomediastinal silhouette is normal. No consolidation, mass, pneumothorax, or pleural effusion. Vascular congestion. The underlying bony structures are normal for the patient's age. Procedure Note Jarad King MD - 10/02/2024 EXAM XR CHEST 1 VIEW - 10/02/2024 8:53 pm HISTORY Shortness of breath TECHNIQUE Single-view chest COMPARISON None. FINDINGS Cardiomediastinal silhouette is normal. No consolidation, mass,pneumothorax, or pleural effusion. Vascular congestion. The underlying bony structures are normal for the patient's age. IMPRESSION IMPRESSION Vascular congestion Silvino Chávez MD RADIOLOGY (RAD GENERAL) Fi nal Result * (ABNORMAL) DIFFERENTIAL, AUTOMATED (10/02/2024 7:49 PM EST) WBC 10.47 4.00 - 10.80 K/uL 10/02/2024 8:03 PM EST LABORATORY [facility] Neutrophils % 85.7(H) 40.0 - 75.0 % 10/02/2024 8:03 PM EST LABORATORY [facility] Lymphocytes % 5.8(L) 18.0 - 42.0 % 10/02/2024 8:03 PM EST LABORATORY [facility] Monocytes % 5.6 1.0 - 11.0 % 10/02/2024 8:03 PM EST LABORATORY [facility] Eosinophils % 1.5 0.0 - 6.0 % 10/02/2024 8:03 PM EST LABORATORY [facility] Basophils % 0.6 0.0 - 2.0 % 10/02/2024 8:03 PM EST LABORATORY [facility] Immature Granulocytes % 0.8 0.0 - 2.0 % 10/02/2024 8:03 PM EST LABORATORY [facility] Absolute Neutrophils 8.97(H) 1.80 - 7.70 K/uL 10/02/2024 8:03 PM EST LABORATORY [facility] Absolute Lymphocytes 0.61(L) 1.00 - 4.80 K/ul 10/02/2024 8:03 PM EST LABORATORY [facility] Absolute Monocytes 0.59 0.00 - 1.10 K/uL 10/02/2024 8:03 PM EST LABORATORY [facility] Absolute Eosinophils 0.16 0.00 - 0.70 K/uL 10/02/2024 8:03 PM EST LABORATORY [facility] Absolute Basophils 0.06 0.00 - 0.20 K/uL 10/02/2024 8:03 PM EST LABORATORY [facility] Absolute Immature Granulocytes 0.08 0.00 - 0.20 K/uL 10/02/2024 8:03 PM EST LABORATORY [facility] Blood Venous blood specimen / Unknown Venipuncture / Unknown 10/02/2024 7:49 PM EST 10/02/2024 7:55 PM EST us Silvino Chávez MD LAB BLOOD ORDERABLES Final Result LABORATORY [facility] [address] [place] [address] * (ABNORMAL) CBC (10/02/2024 7:49 PM EST) WBC 10.47 4.00 - 10.80 K/uL 10/02/2024 8:03 PM EST LABORATORY [facility] RBC 4.45 3.85 - 5.15 M/uL 10/02/2024 8:03 PM EST LABORATORY [facility] HGB 11.9(L) 12.0 - 15.3 g/dL 10/02/2024 8:03 PM EST LABORATORY [facility] HCT 40.0 36.0 - 45.2 % 10/02/2024 8:03 PM EST LABORATORY [facility] MCV 89.9 81.5 - 97.5 fL 10/02/2024 8:03 PM EST LABORATORY [facility] MCH 26.7 27.0 - 34.0 pg 10/02/2024 8:03 PM EST LAB[facility]ATORY [facility] MCHC 29.8 32.0 - 36.0 g/dL 10/02/2024 8:03 PM EST LABORATORY [facility] RDW 14.6 11.5 - 15.5 % 10/02/2024 8:03 PM EST LABORATORY [facility] PLT 210 140 - 400 K/uL 10/02/2024 8:03 PM EST LABORATORY [facility] MPV 8.9 6.6 - 11.1 fL 10/02/2024 8:03 PM EST LABORATORY [facility] nRBCs 0 <=0 /100 WBCs 10/02/2024 8:03 PM EST LAB[facility]ATORY [facility] Blood Venous blood specimen / Unknown Venipuncture / Unknown 10/02/2024 7:49 PM EST 10/02/2024 7:55 PM EST Silvino Chávez MD LAB BLOOD ORDERABLES [place] [address] * LIPASE (10/02/2024 7:49 PM EST) [facility] Lipase 38 13 - 60 U/L 10/02/2024 8:25 PM EST LABORATORY [facility] Blood Venous blood specimen / Unknown Venipuncture / Unknown 10/02/2024 7:49 PM EST 10/02/2024 7:55 PM EST Silvino Chávez MD LAB BLOOD ORDERABLES Final Result Performing Organization Address City/[facility]/ZIP Co [place] [address] * (ABNORMAL) TROPONIN T, HIGH SENSITIVITY (10/02/2024 7:49 PM EST) [facility] Troponin T, High Sensitivity 77(H) <=14 ng/L 10/02/2024 8:21 PM EST LABORATORY [facility] Blood Venous blood specimen / Unknown Venipuncture / Unknown 10/02/2024 7:49 PM EST 10/02/2024 7:55 PM EST Silvino Chávez MD LAB BLOOD ORDERABLES Final Result [facility]ATORY [facility] [address] [facility] [place] [address] * (ABNORMAL) COMPREHENSIVE METABOLIC PANEL (10/02/2024 7:49 PM EST) BUN 35(H) 6 - 20 mg/dL 10/02/2024 8:25 PM EST LABORATORY [facility] CREATININE 1.4(H) 0.5 - 1.0 mg/dL 10/02/2024 8:25 PM EST LABORATORY [facility] EGFR 43(L) >=60 mL/min 10/02/2024 8:25 PM EST LABORATORY [facility] Comment:eGFR is calculated b ased on the CKD-EPI 2020 equation. SODIUM 137 135 - 146 mmol/L 10/02/2024 8:25 PM EST LABORATORY [facility] POTASSIUM 4.8 3.5 - 5.1 mmol/L 10/02/2024 8:25 PM EST [facility] CHLORIDE 102 98 - 107 mmol/L 10/02/2024 8:25 PM EST [facility] CO2 27 22 - 32 mmol/L 10/02/2024 8:25 PM EST [facility] ANION GAP 8 7 - 15 mmol/L 10/02/2024 8:25 PM EST [facility] GLUCOSE 259(H) 70 - 120 mg/dL 10/02/2024 8:25 PM EST [facility] Albumin 3.5(L) 3.8 - 5.0 g/dL 10/02/2024 8:25 PM EST [facility] AST 11 10 - 35 U/L 10/02/2024 8:25 PM EST [facility] Alkaline Phosphatase 91 35 - 130 U/L 10/02/2024 8:25 PM EST [facility] Bilirubin, Total 0.3 <=1.2 mg/dL 10/02/2024 8:25 PM EST [facility] CALCIUM 8.6 8.4 - 10.2 mg/dL 10/02/2024 8:[address] [facility] Protein 7.7 6.0 - 8.3 g/dL 10/02/2024 8:[address] [facility] ALT 5(L) 10 - 35 U/L 10/02/2024 8:[address] [facility] Blood Venous blood specimen / Unknown Venipuncture / Unknown 10/02/2024 7:49 PM EST 10/02/2024 7:55 PM EST Silvino Chávez MD LAB BLOOD ORDERABLES Final Result Performing Organization Address City/[facility]/ZIP Co de Phone Number LABORATORY [facility] [address] [place] [address] * (ABNORMAL) BNP, NT-PRO (10/02/2024 7:49 PM EST) BNP, NT-Pro 5,502(H) <300 pg/mL 10/02/2024 8:[address] [facility] Blood Venous blood specimen / Unknown Venipuncture / Unknown 10/02/2024 7:49 PM EST 10/02/2024 7:55 PM EST Narrative [facility]ATORY [facility] - 10/02/2024 8:25 PM EST Exclude Heart Failure: <300 pg/mL Diagnose Heart Failure: Age <50 yr: >450 pg/mL 50-75 yr: >900 pg/mL >75 yr: >1800 pg/mL GFR is 30-59 mL/min: >1200 pg/mL or Age-adjusted values GFR <30 mL/min: do not use, not reliable Prognostic threshold: 1000 pg/mL Silvino Chávez MD LAB BLOOD ORDERABLES Final Result Performing Organization Address [facility]/ZIP Co de Phone Number LABORATORY [facility] [address] [place] [address] * EKG (10/02/2024 6:25 PM EST) 10/02/2024 6:25 PM EST Narrative Procedure Note Joe Ramirez MD - 10/02/2024 6:25 PM EST REASON FOR STUDY: SOB (shortness of breath) CONCLUSIONS: Normal sinus rhythm Low voltage QRS, consider pulmonary disease, pericardial effusion, ornormal variant Borderline ECG When compared with ECG of 30-Apr-2024 18:40, No significant change Ventricular Rate: 64 Atrial Rate: 64 [place] Interval: 160 QRS Duration: 80 QT/QTc: 430/443 ms P-R-T [place]: 77 : 34 : 10 degrees us Silvino Chávez MD EKG Final [facility] documented in this encounter Visit Diagnoses Diagnosis Heart failure, systolic and diastolic, acute on chronic (HCC)- Primary Acute on chronic combined systolic and diastolic heart failure SOB (shortness of breath) Shortness of breath Chest pain Chest pain, unspecified Heart failure (HCC) Heart failure, unspecified Other specified symptoms and signs involving the circulatory and respiratory systems Generalized edema Edema Skin ulcer of multiple sites of lower extremity, unspecified laterality, limited to breakdown of skin ([facility]) Acute on chronic respiratory failure with hypercapnia ([facility]) Cellulitis, unspecified cellulitis site Restless leg syndrome Restless legs syndrome (RLS) SLEEP APNEA, UNSPECIFIED Unspecified sleep apnea Major depressive disorder Major depressive disorder, single episode, unspecified Dyslipidemia, goal LDL below 100 Other and unspecified hyperlipidemia HTN, goal below 140/90 Unspecified essential hypertension Type 2 diabetes mellitus with diabetic polyneuropathy, with long-term current use of insulin ([facility]) BMI 40.0-44.9, adult ([facility]) Body Mass Index 40.0-44.9, adult COPD, group C, by GOLD 2017 classification ([facility]) Venous stasis ulcers of both lower extremities ([facility]) SOB (shortness of breath) Shortness of breath Hyperkalemia Hyperpotassemia Cellulitis Cellulitis and abscess of unspecified site Acute on chronic respiratory failure with hypercapnia ([facility]) Obesity hypoventilation syndrome ([facility]) Obesity hypoventilation syndrome Excoriation Other and unspecified superficial injury of other, multiple, and unspecified sites, without mention of infection documented in this encounter Administered Medications Inactive Administered Medications - up to 3 most recent administrations Medication Order MAR Action Action Date Dose Rate Site Acetaminophen (Tylenol) tab 650 mg 650 mg, Oral, Q6H PRN Pain, Mild, Fever >38C(100.5F), Starting on Tahmina 10/02/24 at 2307, Until 10/04/24 at 2010, Maximum of 4 grams (4000 mg) per day. Given 10/03/2024 5:32 AM EST 650 mg Acetaminophen (Tylenol) tab 650 mg 650 mg, Oral, Q6H PRN Pain, Mild, Fever >38C(100.5F), Pain, Moderate, Starting on 10/04/24 at 2010, Until Sun10/10/24 at 2231, Maximum of 4 grams (4000 mg) per day. Given 10/08/2024 4:48 PM EST 650 mg Given 10/06/2024 10:27 AM EST 650 mg Given 10/06/2024 1:56 AM EST 650 mg albuterol-ipratropium (Duoneb) inhalation solution 3 mL 3 mL, Nebulizer, RESPQID, First dose on Sun10/05/24 at 1200, Until Discontinued, 3 mL = 0.5 mg ipratropium/ 2.5 mg albuterol Given 10/05/2024 11:39 AM EST 3 mL amLODIPine (Norvasc) tab 5 mg 5 mg, Oral, Daily(AM), First dose on Sun10/03/24 at 0900, Until Discontinued Given 10/04/2024 8:44 AM EST 5 mg Given 10/03/2024 9:14 AM EST 5 mg amLODIPine (Norvasc) tab 5 mg 5 mg, Oral, Daily(AM), First dose (after last reorder) on Sun10/06/24 at 0915, Until Discontinued Given 10/10/2024 10:14 AM EST 5 mg Given 10/09/2024 8:00 AM EST 5 mg Given 10/08/2024 9:42 AM EST 5 mg Calamine lotion Topical, PRN Itching, Starting on Sun10/08/24 at 1403, Until Sun10/10/24 at 1201, See nursing care plan Given 10/09/2024 8:46 PM EST Given 10/09/2024 12:00 AM EST Carvedilol (Coreg) tab 3.125 mg 3.125 mg, Oral, BID (AM/PM MEALS), First dose on Sun10/03/24 at 0800, Until Discontinued, Hold for HR less than 60 or SBP below 100 and notify service if dose is held MUST BE GIVEN WITH MEAL Given 10/03/2024 5:59 PM EST 3.125 mg Given 10/03/2024 9:14 AM EST 3.125 mg Carvedilol (Coreg) tab 3.125 mg 3.125 mg, Oral, BID (AM/PM MEALS), First dose (after last reorder) on Sun10/06/24 at 0915, Until Discontinued, Hold for HR less than 60 or SBP below 100 and notify service if dose is held MUST BE GIVEN WITH MEAL Given 10/10/2024 4:48 PM EST 3.12 5 mg Given 10/10/2024 10:22 AM EST 3.125 mg Given 10/09/2024 8:01 AM EST 3.125 mg Cephalexin (Keflex) cap 500 mg 500 mg, Oral, Q6H, First dose on Sun10/03/24 at 0015, Last dose on Sun10/07/24 at 1800, For 5 days Given 10/07/2024 8:16 PM EST 500 mg Given 10/07/2024 1:37 PM EST 500 mg Given 10/07/2024 6:36 AM EST 500 mg cholecalciferol (VIT D3) (Vitamin D3) tab 2,000 Units 2,000 Units, Oral, Daily(AM), First dose on Sun10/05/24 at 0900, Until Discontinued, NOTE 1000 units = 25 mcg Given 10/10/2024 10:[address] 2,000 Units Given 10/09/2024 8:00 AM EST 2,000 Units Given 10/08/2024 9:43 AM EST 2,000 Units CYANOCOBALAMIN (vitamin B-12) tab 1,000 mcg 1,000 mcg, Oral, Daily(AM), First dose on 10/05/24 at 0900, Until Discontinued Given 10/10/2024 10:14 AM EST 1,000 mcg Given 10/09/2024 8:00 AM EST 1,000 mcg Given 10/08/2024 9:42 AM EST 1,000 mcg cyclobenzaprine (Flexeril) 5 mg tab 5 mg, Oral, Q8H PRN Muscle spasms, Starting on 10/04/24 at 1215, Until Sun10/10/24 at 2231 Given 10/08/2024 8: 21 PM EST 5 mg Given 10/06/2024 1:56 AM EST 5 mg Given 10/05/2024 9:06 AM EST 5 mg cyclobenzaprine (Flexeril) tab 10 mg 10 mg, Oral, TID(AM/NOON/HS), First dose on Sun10/03/24 at 1045, Until Discontinued Given 10/04/2024 6:48 AM EST 10 m g Given 10/03/2024 10:19 PM EST 10 mg Given 10/03/2024 10:38 AM EST 10 mg dextrose 50% inj 25 mL 25 mL, IV Push, PRN Hypoglycemia, Other, For blood glucose 54 - 69 mg/dL or 70 - 100 mg/dL with symptoms AND patient is unresponsive, NPO, OR unable to swallow, Starting on Sun10/02/24 at 2311, Until Sun10/10/24 at 2231, Administer IV. Recheck blood glucose after 15 minutes. Notify provider. dextrose 50% inj 50 mL 50 mL, IV Push, PRN Hypoglycemia, Other, For blood glucose below 54 mg/dL AND patient unresponsive, NPO, OR unable to swallow, Starting on Sun10/02/24 at 2311, Until Sun10/10/24 at 2231, Administer IV. Recheck blood glucose in 15 minutes. Notify provider. elemental magnesium (Magonate) oral liquid 108 mg 108 mg, Oral, ONCE, On Sun10/07/24 at 1900, For 1 dose, 54 mg elemental magnesium per 5ml Given 10/07/2024 8:09 PM EST 108 mg escitalopram (Lexapro) tab 10 mg 10 mg, Oral, Daily(AM), First dose on Sun10/03/24 at 0900, Until Discontinued Given 10/10/2024 10:14 AM EST 10 mg Given 10/09/2024 8:00 AM EST 10 mg Given 10/08/2024 9:43 AM EST 10 mg fluticasone (Flonase) nasal inhaler 2 [place] 2 [place], Each Nostril, Daily(AM), First dose on Sun10/03/24 at 0900, Until Discontinued, 50 mcg / Actuation Given 10/10/2024 10:17 AM EST 2 Sprays Given 10/09/2024 11:52 AM EST 2 Sprays Given 10/08/2024 9:00 AM EST 2 Sprays Furosemide (Lasix) inj 40 mg 40 mg, IV Push, BID (0900, 1600), First dose on Sun10/07/24 at 1600, Until Discontinued Given 10/08/2024 9:42 AM EST 4 0 mg Given 10/07/2024 5:00 PM EST 40 mg Furosemide (Lasix) inj 60 mg 60 mg, IV Push, ONCE, On Sun10/03/24 at 0015, For 1 dose Given 10/03/2024 12:11 AM EST 60 mg Furosemide (Lasix) inj 60 mg 60 mg, IV Push, Daily(AM), First dose (after last reorder) on Sun10/04/24 at 0900, Until Discontinued Given 10/07/2024 8:25 AM EST 60 mg Given 10/06/2024 9:43 AM EST 60 mg Given 10/05/2024 8:49 AM EST 60 mg Furosemide (Lasix) inj 60 mg 60 mg, IV Push, ONCE, On Sun10/04/24 at 1715, For 1 dose Given 10/04/2024 6:20 PM EST 60 mg Furosemide (Lasix) tab 40 mg 40 mg, Oral, Daily(AM), First dose on Sun10/09/24 at 0900, Until Discontinued Given 10/09/2024 7:59 AM EST 40 mg Gabapentin (Neurontin) cap 200 mg 200 mg, Oral, TID(AM/NOON/HS), First dose on Sun10/03/24 at 0000, Until Discontinued Given 10/10/2024 12:51 PM EST 200 mg Given 10/10/2024 6:25 AM EST 200 mg Given 10/09/2024 10:46 PM EST 200 mg glucagon (Glucagen) inj 1 mg 1 mg, Intramuscular, PRN Hypoglycemia, Other, If patient is unresponsive, or NPO and has no IV access, Starting on Sun10/02/24 at 2311, Until Sun10/10/24 at 2231, NPO and no IV access with either 1) blood glucose less than 100 mg/dL and symptomatic OR 2) blood glucose less than 70 mg/dL and asymptomatic Glucose (Glutose 15) 40 % gel 15 g of glucose 15 g of glucose, Oral, PRN Hypoglycemia (low sugar), Other, For blood glucose 54 - 69 mg/dL or 70 - 100 mg/dL with symptoms AND patient alert WITH difficulty chewing/swallowing, Starting on Sun10/02/24 at 2311, Until Sun10/10/24 at 2231, Administer gel. Recheck blood glucose after 15 minutes. Notify provider. 37.5 gram tube = 15 grams glucose = 1 each Glucose (Glutose 15) 40 % gel 30 g of glucose 30 g of glucose, Oral, PRN Hypoglycemia (low sugar), Other, For blood glucose below 54 mg/dL AND patient alert WITH difficulty chewing/swallowing, Starting on Sun10/02/24 at 2311, Until Sun10/10/24 at 2231, Administer gel. Recheck blood glucose after 15 minutes. Notify provider. 37.5 gram tube = 15 grams glucose = 1 each glucose chew tab 16 g 16 g, Oral, PRN Hypoglycemia, Other, For blood glucose 54 - 69 mg/dL or 70 - 100 mg/dL with symptoms and patient alert without difficulty chewing/swallowing., Starting on Sun10/02/24 at 2311, Until Sun10/10/24 at 2231 hEParin inj 5,000 Units 5,000 Units, Subcutaneous, Q12H, First dose on Sun10/03/24 at 0900, Until Discontinued Given 10/06/2024 9:44 AM EST 5,000 Units Abdomen Left Upper Given 10/05/2024 9:54 PM EST 5,000 Units A bdomen Right Lower Given 10/05/2024 8:50 AM EST 5,000 Units A bdomen Right Lower hEParin inj 7,500 Units 7,500 Units, Subcutaneous, Q12H, First dose (after last modification) on Sun10/06/24 at 2100, Until Discontinued Given 10/10/2024 10:22 AM EST 7,500 Units Abdomen Right Upper Given 10/09/2024 8:42 PM EST 7,500 Units A bdomen Right Lower Given 10/09/2024 8:12 AM EST 7,500 Units A bdomen Right Lower HYDROmorphone (Dilaudid) inj 0.5 mg 0.5 mg, IV Push, ONCE, On Sun10/02/24 at 2345, For 1 dose Given 10/03/2024 12:01 AM EST 0.5 mg HYDROmorphone (Dilaudid) inj 1 mg 1 mg, IV Push, ONCE, On Sun10/05/24 at 1000, For 1 dose Given 10/05/2024 10:59 AM EST 1 mg HYDROmorphone (Dilaudid) inj 1 mg 1 mg, IV Push, Q6H PRN Pain, Moderate, Starting on 10/05/24 at 1043, Until Sun10/06/24 at 1018 Given 10/06/2024 4:30 AM EST 1 mg HYDROmorphone (Dilaudid) inj 1 mg 1 mg, IV Push, Q6H PRN Pain, Severe, Starting on Sun10/06/24 at 1018, Until Sun10/08/24 at 1051 Given 10/08/2024 10:13 AM EST 1 mg Given 10/07/2024 8:08 PM EST 1 mg Given 10/06/2024 9:44 PM EST 1 mg hydrOXYzine HCl tab 25 mg 25 mg, Oral, TID PRN Anxiety, Starting on [place]mina 10/02/24 at 2313, Until Sun10/10/24 at 2231 Given 10/09/2024 12:14 AM EST 2 5 mg Given 10/08/2024 4:49 PM EST 25 mg Given 10/08/2024 5:51 AM EST 25 mg insulin aspart (NovoLOG) inj Subcutaneous, W/MEALS AND HS, First dose on Sun10/03/24 at 0800, Until Discontinued, MEDIUM DOSE, (Usual starting dose) Insulin sensitivity factor (ISF) = 40 Serum Blood Sugar less than 70 mg/dl (obtain STAT lab blood sugar and notify provider); 151 - 190 mg/dl (1 units); 191 - 230 mg/dl (2 units); 231 - 270 mg/dl (3 units); 271 - 310 mg/dl (4 units); 311 - 350 mg/dl (5 units); 351 - 390 mg/dl (6 units); 391 mg/dl and greater (call provider), Correctional insulin may be given if the patient is NPO. Given 10/10/2024 12:52 PM EST 1 Units Arm Left Upper Given 10/10/2024 10:13 AM EST 1 Units A rm Right Upper Given 10/09/2024 10:46 PM EST 1 Units A bdomen Left Lower insulin aspart (NovoLOG) inj Subcutaneous, WITH MEALS, First dose on Sun10/07/24 at 1230, Until Discontinued, Dose equals 1 unit of insulin per 10 grams of carbohydrate consumed. Hold dose if patient does not eat Given 10/10/2024 12:51 PM EST 2 Units Arm Left Upper Given 10/10/2024 10:13 AM EST 4 Units A rm Right Upper Given 10/09/2024 5:43 PM EST 6 Units Ab domen Left Lower Insulin Glargine (Lantus) inj 15 Units 15 Units, Subcutaneous, HSINSULIN, First dose on Sun10/02/24 at 2345, Until Discontinued, Notify provider if patient is made NPO. Do not hold dose in patients with Type 1 diabetes. If dose is held - notify covering provider. Given 10/03/2024 10:20 PM EST 15 Units Abdomen Right Upper Given 10/02/2024 11:45 PM EST 15 Units A bdomen Right Lower Insulin Glargine (Lantus) inj 15 Units 15 Units, Subcutaneous, HSINSULIN, First dose (after last modification) on 10/06/24 at 2200, Until Discontinued, Notify provider if patient is made NPO. Do not hold dose in patients with Type 1 diabetes. If dose is held - notify covering provider. Given 10/09/2024 10:47 PM EST 15 Units Abdomen Left Upper Given 10/08/2024 10:02 PM EST 15 Units A rm Right Upper Given 10/07/2024 10:00 PM EST 15 Units A bdomen Left Lower Insulin Glargine (Lantus) inj 7 Units 7 Units, Subcutaneous, HSINSULIN, First dose (after last modification) on 10/04/24 at 2200, Until Discontinued, Notify provider if patient is made NPO. Do not hold dose in patients with Type 1 diabetes. If dose is held - notify covering provider. Given 10/05/2024 10:00 PM EST 7 Units Abdomen Right Lower Given 10/04/2024 9:05 PM EST 7 Units Ab domen Left Lower LiquaCel 30 mL, Oral, BID (.AM/PM), First dose on Sun10/07/24 at 2100, Until Discontinued Given 10/09/2024 8:01 AM EST 30 mL Given 10/08/2024 9:43 AM EST 30 mL Given 10/07/2024 8:09 PM EST 30 mL Nicotine (Nicoderm CQ) 21 MG/24HR patch 1 Patch 1 Patch, Transdermal, Daily(AM), First dose on Sun10/05/24 at 1230, Until Discontinued, Do NOT cut the patch. Remove any Nicotine patches the patient may currently be wearing prior to applying the new patch. Place on clean hairless area. Remove for patient showers. WASTE INFO: Return packaging and waste medication in zip lock bag to pharmacy - [facility] container. Patch Applied 10/10/2024 10:11 AM EST 1 Patch Arm Right Upper Patch Applied 10/09/2024 8:03 AM EST 1 Patch Arm Left Upper Patch Applied 10/08/2024 9:45 AM EST 1 Patch Arm Left Upper omeprazole (PriLOSEC) cap 20 mg 20 mg, Oral, Daily(AM), First dose on Sun10/03/24 at 0900, Until Discontinued, This med should NOT be Crushed or Chewed Given 10/10/2024 10:14 AM EST 20 mg Given 10/09/2024 8:00 AM EST 20 mg Given 10/08/2024 9:43 AM EST 20 mg oxyCODONE (Oxy IR) tab 10 mg 10 mg, Oral, ONCE, On Sun10/03/24 at 1045, For 1 dose Given 10/03/2024 10:34 AM EST 10 mg oxyCODONE (Oxy IR) tab 5 mg 5 mg, Oral, ONCE, On [place]mina 10/02/24 at 2030, For 1 dose Given 10/02/2024 7:58 PM EST 5 mg oxyCODONE (Oxy IR) tab 5 mg 5 mg, Oral, ONCE, On Sun10/04/24 at 0500, For 1 dose Given 10/04/2024 4:48 AM EST 5 mg oxygen GAS Inhalation, OXYGEN, First dose on Sun10/04/24 at 1600, Until Discontinued, Device/Managed by: NIV or Ventilator Device, Goal SPO2 (%): 91-95, Notify Provider: For sudden DECREASE in resting SPO2 to less than 85% and when escalating delivery device., Initial FiO2 (%): 40, Titration Interval: Q2 minutes and as needed., Wean patient off Oxygen when the oxygen saturation is greater than or equal to 93% Oxygen On 10/10/2024 4:00 PM EST 2 L/min(Oxygen) Oxygen On 10/10/2024 8:00 AM EST 2 L/min(Oxygen) Oxygen On 10/10/2024 12:00 AM EST Permethrin (Elimite) 5 % cream Topical, ONCE, On 10/04/24 at 1300, For 1 dose, Apply to affected area trunk and extremities Given 10/04/2024 3:48 PM EST Permethrin (Elimite) 5 % cream Topical, ONCE, On 10/06/24 at 1115, For 1 dose, Apply to affected areas Given 10/06/2024 11:15 AM EST Simvastatin (Zocor) tab 20 mg 20 mg, Oral, QPM-1999, First dose on Sun10/03/24 at 0000, Until Discontinued Given 10/09/2024 8:42 PM EST 20 mg Given 10/08/2024 8:21 PM EST 20 mg Given 10/07/2024 8:08 PM EST 20 mg Torsemide (Demadex) tab 40 mg 40 mg, Oral, Daily(AM), First dose on Sun10/09/24 at 1130, Until Discontinued Given 10/10/2024 10:14 AM EST 40 mg Given 10/09/2024 11:52 AM EST 40 mg traMADol (Ultram) tab 50 mg 50 mg, Oral, Q8H PRN Pain, Moderate, Starting on Sun10/08/24 at 1403, Until Sun10/10/24 at 2231 Given 10/10/2024 10:17 AM EST 50 mg Given 10/09/2024 8:52 PM EST 50 mg Given 10/09/2024 12:14 AM EST 50 mg Triamcinolone Acetonide (Aristocort) 0.1 % cream 80 g 80 g, Topical, Q12H PRN Itching, Starting on Sun10/10/24 at 1224, Until Sun10/10/24 at 2231, Apply to affected area for itch documented in this encounter Active and Recently Administered Medications Times are shown in EST. Scheduled Medication Order 10/08/2024 10/09/2024 10/10/2024 amLODIPine (Norvasc) tab 5 mg 5 mg, Oral, Daily(AM), First dose (after last reorder) on Sun10/06/24 at 0915, Until Discontinued 0942 (Given - Provider: Pinky Aguila RN) 0800 (Given - Provider: Jeri Sellers RN) 1014 (Given - Provider: Flower Cohen, JUANA) Carvedilol (Coreg) tab 3.125 mg 3.125 mg, Oral, BID (AM/PM MEALS), First dose (after last reorder) on Sun10/06/24 at 0915, Until Discontinued, Hold for HR less than 60 or SBP below 100 and notify service if dose is held MUST BE GIVEN WITH MEAL 0943 (Given - Provider: Pinky Aguila RN)1834 (Given - Provider: Pinky Aguila RN) 0801 (Given - Provider: Jeri Sellers RN)1606 (Not Given - Provider: Jeri Sellers RN - Reason: Parameter(s) Not Met) 1022 (Given - Provider: Flower Cohen RN)1648 (Given - Provider: Flower Cohen RN) cholecalciferol (VIT D3) (Vitamin D3) tab 2,000 Units 2,000 Units, Oral, Daily(AM), First dose on 10/05/24 at 0900, Until Discontinued, NOTE 1000 units = 25 mcg 0943 (Given - Provider: Pinky Aguila RN) 0800 (Given - Provider: Jeri Sellers RN) 1014 (Given - Provider: Flower Cohen, JUANA) CYANOCOBALAMIN (vitamin B-12) tab 1,000 mcg 1,000 mcg, Oral, Daily(AM), First dose on 10/05/24 at 0900, Until Discontinued 0942 (Given - Provider: Pinky Aguila RN) 0800 (Given - Provider: Jeri Sellers RN) 1014 (Given - Provider: Flower Cohen, JUANA) escitalopram (Lexapro) tab 10 mg 10 mg, Oral, Daily(AM), First dose on Sun10/03/24 at 0900, Until Discontinued 0943 (Given - Provider: Pinky Aguila RN) 0800 (Given - Provider: Jeri Sellers RN) 1014 (Given - Provider: Flower Cohen RN) fluticasone (Flonase) nasal inhaler 2 [place] 2 [place], Each Nostril, Daily(AM), First dose on Sun10/03/24 at 0900, Until Discontinued, 50 mcg / Actuation 0900 (Given - Provider: Pinky Aguila RN) 1152 (Given - Provider: Jeri Sellers, JUANA) 1017 (Given - Provider: Flower Cohen, RN) Furosemide (Lasix) inj 40 mg (CANCELED) 40 mg, IV Push, BID (0900, 1600), First dose on Sun10/07/24 at 1600, Until Discontinued 0942 (Given - Provider: Pinky Aguila RN) Furosemide (Lasix) tab 40 mg (CANCELED) 40 mg, Oral, Daily(AM), First dose on Sun10/09/24 at 0900, Until Discontinued 0759 (Given - Provider: Jeri Sellers, JUANA) Gabapentin (Neurontin) cap 200 mg 200 mg, Oral, TID(AM/NOON/HS), First dose on Sun10/03/24 at 0000, Until Discontinued 0551 (Given - Provider: Patricia Sullivan RN)1329 (Given - Provider: Pinky Aguila RN)2202 (Given - Provider: Deb Mcpherson, JUANA) 0537 (Given - Provider: Deb Mcpherson, JUANA)1151 (Given - Provider: Jeri Sellers, JUANA)2246 (Given - Provider: Karla Hurtado, RN) 0625 (Given - Provider: Karla Hurtado, RN)1251 (Given - Provider: Flower Cohen, RN) hEParin inj 7,500 Units 7,500 Units, Subcutaneous, Q12H, First dose (after last modification) on Sun10/06/24 at 2100, Until Discontinued 0944 (Given - Provider: Pinky Aguila RN)2202 (Given - Provider: Deb Mcpherson, JUANA) 0812 (Given - Provider: Jeri Sellers, JUANA)204 (Given - Provider: Karla Hurtado, JUANA) 1022 (Given - Provider: Flower Cohen, RN) insulin aspart (NovoLOG) inj Subcutaneous, W/MEALS AND HS, First dose on Sun10/03/24 at 0800, Until Discontinued, MEDIUM DOSE, (Usual starting dose) Insulin sensitivity factor (ISF) = 40 Serum Blood Sugar less than 70 mg/dl (obtain STAT lab blood sugar and notify provider); 151 - 190 mg/dl (1 units); 191 - 230 mg/dl (2 units); 231 - 270 mg/dl (3 units); 271 - 310 mg/dl (4 units); 311 - 350 mg/dl (5 units); 351 - 390 mg/dl (6 units); 391 mg/dl and greater (call provider), Correctional insulin may be given if the patient is NPO. 0944 (Not Given - Provider: Pinky Aguila RN - Reason: Parameter(s) Not Met)1330 (Given - Provider: Pinky Aguila RN)1700 (Not Given - Provider: Pinky Aguila RN - Reason: Parameter(s) Not Met)2202 (Given - Provider: Deb Mcpherson RN) 0811 (Given - Provider: Jeri Sellers RN)1332 (Given - Provider: Jeri Sellers RN)1743 (Given - Provider: Jeri Sellers RN)2246 (Given - Provider: Karla Hurtado RN) 1013 (Given - Provider: Flower Cohen RN)1252 (Given - Provider: Flower Cohen RN)1700 (Not Given - Provider: Flower Cohen RN - Reason: Parameter(s) Not Met) insulin aspart (NovoLOG) inj Subcutaneous, WITH MEALS, First dose on Sun10/07/24 at 1230, Until Discontinued, Dose equals 1 unit of insulin per 10 grams of carbohydrate consumed. Hold dose if patient does not eat 0800 (Given - Provider: Pinky Aguila RN)1329 (Given - Provider: Pinky Aguila RN)1833 (Given - Provider: Pinky Aguila RN) 0811 (Given - Provider: Jeri Sellers, JUANA)1331 (Given - Provider: Jeri Sellers RN)1743 (Given - Provider: Jeri Sellers RN) 1013 (Given - Provider: Flower Cohen RN)1251 (Given - Provider: Flower Cohen RN)1700 (Not Given - Provider: Flower Cohen RN - Reason: Other- Please add reason in Comments - Comment: pt leaving--did not eat) Insulin Glargine (Lantus) inj 15 Units 15 Units, Subcutaneous, HSINSULIN, First dose (after last modification) on Sun10/06/24 at 2200, Until Discontinued, Notify provider if patient is made NPO. Do not hold dose in patients with Type 1 diabetes. If dose is held - notify covering provider. 2201 (Given - Provider: Deb Mcpherson, RN) 2246 (Given - Provider: Karla Hurtado RN) LiquaCel 30 mL, Oral, BID (.AM/PM), First dose on Sun10/07/24 at 2100, Until Discontinued 0943 (Given - Provider: Pinky Aguila RN)2100 (Not Given - Provider: Deb Mcpherson RN - Reason: Refused-Notify Provider) 08 (Given - Provider: Jeri Sellers, JUANA)2041 (Not Given - Provider: Karla Hurtado RN - Reason: Other- Please add reason in Comments - Comment: pt refused) 101 (Not Given - Provider: Flower Cohen RN - Reason: Refused-Notify Provider) Nicotine (Nicoderm CQ) 21 MG/24HR patch 1 Patch 1 Patch, Transdermal, Daily(AM), First dose on Sun10/05/24 at 1230, Until Discontinued, Do NOT cut the patch. Remove any Nicotine patches the patient may currently be wearing prior to applying the new patch. Place on clean hairless area. Remove for patient showers. WASTE INFO: Return packaging and waste medication in zip lock bag to pharmacy - [facility] container. 0943 (Patch Removed - Provider: Pinky Aguila RN)0945 (Patch Applied - Provider: Pinky Aguila RN) 0802 (Patch Removed - Provider: Jeri Sellers, JUANA)0803 (Patch Applied - Provider: Jeri Sellers, JUANA) 0803 (Patch Removed - Provider: Flower Cohen, JUANA)1011 (Patch Applied - Provider: Flower Cohen, JUANA)183 (Due: Patch Removed - Provider: Discharge, Physician - Comment: Time automatically adjusted from order being discontinued) omeprazole (PriLOSEC) cap 20 mg 20 mg, Oral, Daily(AM), First dose on Sun10/03/24 at 0900, Until Discontinued, This med should NOT be Crushed or Chewed 0943 (Given - Provider: Pinky Aguila, JUANA) 0800 (Given - Provider: Jeri Sellers, JUANA) 1014 (Given - Provider: Flower Cohen, RN) oxygen GAS(Linked Group 1) Inhalation, OXYGEN, First dose on 10/04/24 at 1600, Until Discontinued, Device/Managed by: NIV or Ventilator Device, Goal SPO2 (%): 91-95, Notify Provider: For sudden DECREASE in resting SPO2 to less than 85% and when escalating delivery device., Initial FiO2 (%): 40, Titration Interval: Q2 minutes and as needed., Wean patient off Oxygen when the oxygen saturation is greater than or equal to 93% 0000 (Oxygen On - Provider: Patricia Sullivan RN)0800 (Oxygen On - Provider: Pinky Aguila RN)1600 (Oxygen On - Provider: Pinky Aguila RN) 0000 (Oxygen On - Provider: Deb Mcpherson RN)0800 (Oxygen On - Provider: Jeri Sellers RN)1600 (Oxygen On - Provider: Jeri Sellers RN) 0000 (Oxygen On - Provider: Karal Hurtado, JUANA)0800 (Oxygen On - Provider: Flower Cohen, RN)1600 (Oxygen On - Provider: Flower Cohen, JUANA) Simvastatin (Zocor) tab 20 mg 20 mg, Oral, QPM-1999, First dose on Sun10/03/24 at 0000, Until Discontinued 2020 (Given - Provider: Deb Mcpherson RN) 2041 (Given - Provider: Karla Hurtado, RN) Torsemide (Demadex) tab 40 mg 40 mg, Oral, Daily(AM), First dose on [place]mina 10/09/24 at 1130, Until Discontinued 115 (Given - Provider: Jeri Sellers, JUANA) 1014 (Given - Provider: Flower Cohen, RN) PRN Medication Order 10/08/2024 10/09/2024 10/10/2024 Acetaminophen (Tylenol) tab 650 mg 650 mg, Oral, Q6H PRN Pain, Mild, Fever >38C(100.5F), Pain, Moderate, Starting on 10/04/24 at 2010, Until Sun10/10/24 at 2231, Maximum of 4 grams (4000 mg) per day. 1648 (Given - Provider: Pinky Aguila RN) Albuterol Sulfate (Proventil) (2.5 MG/3ML) 0.083% inhalation solution 2.5 mg 2.5 mg, Nebulizer, Q4H PRN Dyspnea, Starting on Tahmina 10/02/24 at 2313, Until Sun10/10/24 at 2231 Calamine lotion (CANCELED) Topical, PRN Itching, Starting on Sun10/08/24 at 1403, Until Sun10/10/24 at 1201, See nursing care plan 0000 (Given - Provider: Deb Mcpherson, JUANA)2045 (Given - Provider: Karla Hurtado RN) cyclobenzaprine (Flexeril) 5 mg tab 5 mg, Oral, Q8H PRN Muscle spasms, Starting on Sun10/04/24 at 1215, Until Sun10/10/24 at 2231 2020 (Given - Provider: Deb Mcpherson RN) dextrose 50% inj 25 mL 25 mL, IV Push, PRN Hypoglycemia, Other, For blood glucose 54 - 69 mg/dL or 70 - 100 mg/dL with symptoms AND patient is unresponsive, NPO, OR unable to swallow, Starting on Tahmina 10/02/24 at 2311, Until Sun10/10/24 at 223, Administer IV. Recheck blood glucose after 15 minutes. Notify provider. dextrose 50% inj 50 mL 50 mL, IV Push, PRN Hypoglycemia, Other, For blood glucose below 54 mg/dL AND patient unresponsive, NPO, OR unable to swallow, Starting on Sun10/02/24 at 2311, Until Sun10/10/24 at 223, Administer IV. Recheck blood glucose in 15 minutes. Notify provider. glucagon (Glucagen) inj 1 mg 1 mg, Intramuscular, PRN Hypoglycemia, Other, If patient is unresponsive, or NPO and has no IV access, Starting on Tahmina 10/02/24 at 2311, Until Sun10/10/24 at 223, NPO and no IV access with either 1) blood glucose less than 100 mg/dL and symptomatic OR 2) blood glucose less than 70 mg/dL and asymptomatic Glucose (Glutose 15) 40 % gel 15 g of glucose 15 g of glucose, Oral, PRN Hypoglycemia (low sugar), Other, For blood glucose 54 - 69 mg/dL or 70 - 100 mg/dL with symptoms AND patient alert WITH difficulty chewing/swallowing, Starting on Sun10/02/24 at 2311, Until Sun10/10/24 at 2231, Administer gel. Recheck blood glucose after 15 minutes. Notify provider. 37.5 gram tube = 15 grams glucose = 1 each Glucose (Glutose 15) 40 % gel 30 g of glucose 30 g of glucose, Oral, PRN Hypoglycemia (low sugar), Other, For blood glucose below 54 mg/dL AND patient alert WITH difficulty chewing/swallowing, Starting on Sun10/02/24 at 2311, Until Sun10/10/24 at 2231, Administer gel. Recheck blood glucose after 15 minutes. Notify provider. 37.5 gram tube = 15 grams glucose = 1 each glucose chew tab 16 g 16 g, Oral, PRN Hypoglycemia, Other, For blood glucose 54 - 69 mg/dL or 70 - 100 mg/dL with symptoms and patient alert without difficulty chewing/swallowing., Starting on Sun10/02/24 at 2311, Until Sun10/10/24 at 2231 HYDROmorphone (Dilaudid) inj 1 mg (CANCELED) 1 mg, IV Push, Q6H PRN Pain, Severe, Starting on Sun10/06/24 at 1018, Until Sun10/08/24 at 1051 1013 (Given - Provider: Pinky Aguila RN) hydrOXYzine HCl tab 25 mg 25 mg, Oral, TID PRN Anxiety, Starting on Sun10/02/24 at 2313, Until Sun10/10/24 at 2231 0551 (Given - Provider: Patricia Sullivan RN)1649 (Given - Provider: Pinky Aguila RN) 0014 (Given - Provider: Deb Mcpherson RN) sodium chloride 0.9 % flush/inj 3 mL 3 mL, IV Push, PRN Other, Line Patency, Starting on Sun10/02/24 at 2304, Until Sun10/10/24 at 2231, Do not flush if lock, PICC, or central line not in place, IV infusing or unable to flush traMADol (Ultram) tab 50 mg 50 mg, Oral, Q8H PRN Pain, Moderate, Starting on Sun10/08/24 at 1403, Until Sun10/10/24 at 2231 1558 (Given - Provider: Pinky Aguila RN) 0014 (Given - Provider: Deb Mcpherson, JUANA)2051 (Given - Provider: Karla Hurtado, RN) 1017 (Given - Provider: Flower Cohen, JUANA) Triamcinolone Acetonide (Aristocort) 0.1 % cream 80 g 80 g, Topical, Q12H PRN Itching, Starting on Sun10/10/24 at 1224, Until Sun10/10/24 at 2231, Apply to affected area for itch Linked Groups Order Group 1: Ventilation Method: Acute Non-Invasive --- PEEP/EPAP/CPAP: 5 --- IPAP/Total PIP: 5 --- Pressure Support/Delta P: 10 --- Rate: 10 --- Changes Per Adult Protocol: Yes (CANCELED) CONTINUOUS, Starting on 10/04/24 at 1335, Until Specified Routine And oxygen GASJump to med Inhalation, OXYGEN, First dose on 10/04/24 at 1600, Until Discontinued, Device/Managed by: NIV or Ventilator Device, Goal SPO2 (%): 91-95, Notify Provider: For sudden DECREASE in resting SPO2 to less than 85% and when escalating delivery device., Initial FiO2 (%): 40, Titration Interval: Q2 minutes and as needed., Wean patient off Oxygen when the oxygen saturation is greater than or equal to 93% documented in this encounter Additional Health Concerns [...] Rule-Out 10/05/2024 10/05/2024 10/05/2024 2:19 PM EST documented as of this encounter [...] Power of Attor cristin? No Care Teams Technical Inspector Relationship Specialty Start Date End Date Denis Urbina MD [address] [place] [address] PCP - General Family Medicine 04/17/22 documented as of this encounter
--- OUTSIDE RECORDS SUMMARY | 2025-01-09 05:34 | External Medical Summary ---
Author Name Unknown Address Unknown Organization : Laboratory Report Ordering Provider Test Date Status LOUISE JAIME 10/07/2024 21:15:49 Final Observation Date Value Abnormality Reference (Units ) Status Glucose Point of Care 10/07/2024 21:15:49 146 Above high normal 70-120 (mg/dL) Final Performing Location
--- OUTSIDE RECORDS SUMMARY | 2025-01-09 05:34 | External Medical Summary ---
Author Name Unknown Address Unknown Organization [facility]:LABORATORY [facility] - [address] [place] [address] Dr. Wilner TYLER [address] Laboratory Report Ordering Provider Test Date Status JUVE SIMMONSLive 10/07/2024 04:42:00 Final Observation Date Value Abnormality Reference (Units ) Status Magnesium 10/07/2024 04:42:00 2.1 1.5-2.6 (m g/dL) Final Performing Location LABORATORY [facility] - [address] [place] [address] Dr. Wilner TYLER [address]
--- OUTSIDE RECORDS SUMMARY | 2025-01-09 05:34 | External Medical Summary ---
Author Name Unknown Address Unknown Organization K2I:LABORATORY [facility] - [address] Wilner TYLER [address] Laboratory Report Ordering Provider Test Date Status DERECK GANN 10/07/2024 04:42:00 Final Observation Date Value Abnormality Reference (Units ) Status Phosphate 10/07/2024 04:42:00 3.2 2.5-4.8 (m g/dL) Final Performing Location LABORATORY [facility] - [address] [place] [address] Dr. Wilner TYLER [address]
--- OUTSIDE RECORDS SUMMARY | 2025-01-09 05:34 | External Medical Summary ---
Author Name Unknown Address Unknown Organization : Laboratory Report Ordering Provider Test Date Status LOUISE JAIME 10/07/2024 10:46:04 Final Observation Date Value Abnormality Reference (Units ) Status Glucose Point of Care 10/07/2024 10:46:04 223 Above high normal 70-120 (mg/dL) Final Performing Location
--- OUTSIDE RECORDS SUMMARY | 2025-01-09 05:34 | External Medical Summary ---
Author Name Unknown Address Unknown Organization [facility]:LABORATORY [facility] - [address] [place] [address] Dr. Wilner TYLER [address] Laboratory Report Ordering Provider Test Date Status ANITA SIMMONS 10/09/2024 06:18:00 Final Observation Date Value Abnormality Reference (Units ) Status Magnesium 10/09/2024 06:18:00 2.1 1.5-2.6 (m g/dL) Final Performing Location LABORATORY [facility] - [address] [place] [address] Dr. Wilner TYLER [address]
--- OUTSIDE RECORDS SUMMARY | 2025-01-09 05:34 | External Medical Summary ---
Author Name Unknown Address Unknown Organization : Laboratory Report Ordering Provider Test Date Status LOUISE JAIME 10/06/2024 15:58:17 Final Observation Date Value Abnormality Reference (Units ) Status Glucose Point of Care 10/06/2024 15:58:17 183 Above high normal 70-120 (mg/dL) Final Performing Location
--- OUTSIDE RECORDS SUMMARY | 2025-01-09 05:34 | External Medical Summary ---
Author Name Unknown Address Unknown Organization : Laboratory Report Ordering Provider Test Date Status ALEJANDRO FLAHERTY 10/08/2024 11:30:02 Final Observation Date Value Abnormality Reference (Units ) Status Glucose Point of Care 10/08/2024 11:30:02 196 Above high normal 70-120 (mg/dL) Final Performing Location
--- OUTSIDE RECORDS SUMMARY | 2025-01-09 05:34 | External Medical Summary ---
Author Name Unknown Address Unknown Organization : Laboratory Report Ordering Provider Test Date Status ALEJANDRO FLAHERTY 10/08/2024 07:22:21 Final Observation Date Value Abnormality Reference (Units ) Status Glucose Point of Care 10/08/2024 07:22:21 139 Above high normal 70-120 (mg/dL) Final Performing Location
--- OUTSIDE RECORDS SUMMARY | 2025-01-09 05:34 | External Medical Summary ---
Author Name Unknown Address Unknown Organization [facility]2I:LABORATORY [address] Wilner TYLER [address] Laboratory Report Ordering Provider Test Date Status ANITA SIMMONS 10/09/2024 06:18:00 Final Observation Date Value Abnormality Reference (Units ) Status BUN 10/09/2024 06:18:00 39 Above high normal 6-20 (mg/dL) Final Creatinine 10/09/2024 06:18:00 1.4 Above high normal 0.5-1.0 (mg/dL) Final Glomerular filtration rate/1.73 sq M.predicted [Volume Rate/Area] in Serum, Plasma or Blood by Creatinine-based formula (CKD-EPI) 10/09/2024 06:18:00 42 Below low normal >=60 (mL/min) Final eGFR is calculated based on the CKD-EPI 2020 equation. Sodium 10/09/2024 06:18:00 137 135-146 (m mol/L) Final Potassium 10/09/2024 06:18:00 4.7 3.5-5.1 (m mol/L) Final Cl 10/09/2024 06:18:00 94 Below low normal 98- 107 (mmol/L) Final CO2 10/09/2024 06:18:00 35 Above high normal 22 -32 (mmol/L) Final Anion gap 10/09/2024 06:18:00 8 7-15 (mmol /L) Final Glucose 10/09/2024 06:18:00 166 Above high normal 70 -120 (mg/dL) Final Calcium 10/09/2024 06:18:00 8.8 8.4-10.2 ( mg/dL) Final Performing Location LABORATORY [address] Wilner TYLER [address]
--- OUTSIDE RECORDS SUMMARY | 2025-01-09 05:34 | External Medical Summary ---
Author Name Unknown Address Unknown Organization : Laboratory Report Ordering Provider Test Date Status LOUISE JAIME 10/06/2024 21:31:44 Final Observation Date Value Abnormality Reference (Units ) Status Glucose Point of Care 10/06/2024 21:31:44 230 Above high normal 70-120 (mg/dL) Final Performing Location
--- OUTSIDE RECORDS SUMMARY | 2025-01-09 05:34 | External Medical Summary ---
Author Name Unknown Address Unknown Organization K2I:LABORATORY [facility] - [address] [place] [address] Dr. Wilner TYLER [address] Laboratory Report Ordering Provider Test Date Status ANITA SIMMONS 10/08/2024 06:38:00 Final Observation Date Value Abnormality Reference (Units ) Status Magnesium 10/08/2024 06:38:00 2.0 1.5-2.6 (m g/dL) Final Performing Location LABORATORY [facility] - [address] [place] [address] Dr. Wilner TYLER [address]
--- OUTSIDE RECORDS SUMMARY | 2025-01-09 05:34 | External Medical Summary ---
Author Name Unknown Address Unknown Organization : Laboratory Report Ordering Provider Test Date Status ALEJANDRO FLAHERTY 10/08/2024 21:09:02 Final Observation Date Value Abnormality Reference (Units ) Status Glucose Point of Care 10/08/2024 21:09:02 194 Above high normal 70-120 (mg/dL) Final Performing Location
--- OUTSIDE RECORDS SUMMARY | 2025-01-09 05:34 | External Medical Summary | Summary of Care ---
Author Name Unknown Organization [facility] Address [address] [place] [address] Phone [phone] Care Team Providers Care Drink Waiter Name Role Phone Denis Urbina MD Primary Care Provider + [phone] Reason for Visit * Auth/Cert Specialty Diagnoses / Procedures Referred By Contgm t Referred To Contact Diagnoses SOB (shortness of breath) Alice Segundo MD [address] [facility]ist [facility] [place] [address] Phone: tel: fax: [facility] Emergency Department ([facility]) [address] [facility] [place] [address] Phone: tel: fax: Referral ID Status Reason Start Date Expiration Date Visits Re quested Visits Authorized [id number] Encounter Details Date Type Department Care Team (Latest Contact Info) Description 10/06/2024 11:15 AM EST - 10/06/2024 11:59 PM EST Hospital Encounter Cardiac Studies [facility] [place] [address] [facility] [place] [id number] Discharge Disposition: Home - Self Care Allergies No known active allergiesdocumented as of this encounter (statuses as of 10/07/2024) Medications Furosemide 20 MG Oral Tablet (Lasix) Take 1 Tablet by mouth in the morning. 30 Tablet 025 Active Albuterol Sulfate (2.5 MG/3ML) 0.083% Inhalation Nebulization Solution (Proventil)Indica tions:Bronchitis, Wheezing,Bronchit is, complicated One vial in nebulizer every 4 hours as needed for wheezing 3 mL 1 021 Suspended Acetaminophen 325 MG Oral Tablet (Tylenol) Take 1 Tablet by mouth every 6 hours as needed for Pain, Mild. Suspended CPAP every night at bedtime . Suspended FreeStyle Maria Luz 2 Sensor Use as directed . 1 Each 022 Suspended FreeStyle Maria Luz 2 [place] Device Use as directed . 1 Each 022 Suspended BD Insulin Syringe U/F 30G X 1/2" 0.3 ML (Insulin Syringe-Needle U-100)Indications :Type 2 diabetes mellitus without complication (HCC),Type 2 diabetes mellitus without complication, with long-term current use of insulin (HCC) INJECT UNDER THE SKIN 4 TIMES A DAY 100 Each 2 023 Suspended Droplet Pen Parsons 31G X 5 MM (Insulin Pen Needle)Indication s:Type 2 diabetes mellitus without complication, with long-term current use of insulin (HCC) inject subcutaneously four times a day 1000 Each 023 Suspended OneTouch UltraSoft LancetsIndication s:Type 2 diabetes mellitus without complication, unspecified 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 Use up to four times a day as directed 100 Each 5 024 Suspended ReliOn Premier Classic Device Use to test blood sugar as directed 024 Suspended RA Melatonin 1 MG Sublingual Tablet Sublingual (Melatonin)Indica tions:Insomnia, unspecified type take 1 tablet by mouth at bedtime if needed for insomnia 30 Tablet 5 024 Suspended ReliOn Premier Test In Vitro Strip (Glucose Blood) Use to test blood sugar 4 times daily as directed 100 Strip 024 Suspended Insulin Glargine Solostar 100 UNIT/ML Subcutaneous Solution Pen-injector (Basaglar KwikPen) Inject 15 units once daily at bedtime. Dx Code E 11.9 15 mL 3 024 Suspended Additional Information Patient taking differently: Inject 21 units once daily at bedtime., Informant: Patient, Pharmacy, Reported on 10/03/2024 NovoLOG FlexPen 100 UNIT/ML Subcutaneous Solution Pen-injector (insulin aspart) Inject 12 units + scale three times a day with meals. Max of 20 units three times a day with meals. 15 mL 3 024 Suspended Omeprazole 20 MG Oral Capsule Delayed Release (PriLOSEC)Indicat ions:Gastroesopha geal reflux disease without esophagitis take 1 capsule by mouth every morning 90 Capsule 024 Suspended Bromfenac Sodium (Once-Daily) 0.09 % Ophthalmic Solution Instill 1 Drop into eye daily at noon. 2 mL 024 Suspended Additional Information Patient taking differently:1 Drop Ophthalmic DAILY NOON,Right eye, Informant: Patient, Pharmacy, Reported on 10/03/2024 Cyanocobalamin 1000 MCG Sublingual Tablet SublingualIndicat ions:B12 [address] 1,000MCG UNDER THE TONGUE DAILY 90 Tablet Suspended Escitalopram Oxalate 10 MG Oral Tablet (Lexapro)Indicati ons:Episode of recurrent major depressive disorder, unspecified depression episode severity (HCC) Take 1 Tablet by mouth in the morning. In the morning.. 90 Tablet 024 Suspended Fluticasone Propionate 50 MCG/ACT Nasal Suspension (Flonase)Indicati ons:Rhinosinusiti s Administer 2 Sprays into each nostril in the morning. 1 Each Suspended Gabapentin 100 MG Oral Capsule (Neurontin) Take 2 Capsules by mouth in the morning and 2 Capsules at noon and 2 Capsules before bedtime. 90 Capsule 024 Suspended hydrOXYzine HCl 25 MG Oral TabletIndications :Episode of recurrent major depressive disorder, unspecified depression episode severity (HCC) Take 1 Tablet by mouth 3 times a day as needed for Anxiety. 90 Tablet 024 Suspended Simvastatin 20 MG Oral Tablet (Zocor) Take 1 Tablet by mouth every evening. 90 Tablet 024 Suspended Vitamin D3 50 MCG (2000 UT) Oral CapsuleIndication s:Vitamin D deficiency Take 1 Capsule by mouth in the morning. Every morning.. 90 Capsule 024 Suspended Torsemide 20 MG Oral Tablet (Demadex) Take 3 Tablets by mouth in the morning. 90 Tablet 11 024 Suspended Additional Information Patient taking differently: 40 mgOral Daily(AM),May take extra 20 mg if weight gain, Informant: Patient, Pharmacy, Reported on 10/03/2024 Carvedilol 3.125 MG Oral Tablet (Coreg) Take 1 Tablet by mouth 2 times a day with morning and evening meals. 180 Tablet 3 024 Suspended amLODIPine Besylate 5 MG Oral Tablet (Norvasc) Take 1 Tablet by mouth in the morning. 90 Tablet 3 024 Suspended Ondansetron 4 MG Oral Tablet Disintegrating (Zofran)Indicatio ns:Nausea Place 1 Tablet on tongue every 8 hours as needed for Nausea. dissolve on tongue. 30 Tablet 1 024 Suspended traMADol HCl 50 MG Oral Tablet (Ultram)Indicatio ns:Skin ulcer of multiple sites of lower extremity, unspecified laterality, limited to breakdown of skin (HCC) Take 1 Tablet by mouth every 8 hours as needed for Pain, Moderate. 15 Tablet 024 Suspended methylPREDNISolon e 4 MG Oral Tablet Therapy Pack (Medrol Dosepack) follow package directions 21 Tablet 025 Suspended Ketoconazole 2 % External Shampoo (Nizoral) Apply topically to affected area every 3 days for 28 days. Shampoo twice a week 120 mL 1 025 2024 Suspended documented as of this encounter (statuses as of 10/07/2024) Active Problems Problem Noted Date Diagnosed Date Hyperkalemia 10/04/2024 Cellulitis 10/04/2024 Acute on chronic [...] as of this encounter (statuses as of 10/07/2024) Resolved Problems Problem Noted Date Diagnosed Date [...] as of this encounter (statuses as of 10/07/2024) Immunizations Name Administration Dates Next Due Covid-19 Ad26, Single Dose ([place]/J&J) 021 Hepatitis B, 20+ yrs 12/08/2014,03/31/2011,02/23 Pneumococcal Conjugate Vacci ne, 20-valent ([id number]) 06/06/2023 Pneumococcal Polysaccharide PPV23 (Pneumovax) 02/10/2011 Seasonal [...] documented in this encounter Miscellaneous Notes * Ancillary Progress Note - Kailey Christensen RDCS - 10/06/2024 11:20 AM EST Echo completed documented in this encounter Plan of Treatment Upcoming Encounters Date Type Department Care Team (Late st Contact Info) Description 10/13/2024 3:30 PM EST Office Visit Pulmonary Medicine [facility] [address] [facility] [place] [phone] Johanny Hutton CRNP [address] [place] [address] 10/14/2024 2:00 PM EST Office Visit Wound Care [facility] [address] [place] [address] Paul Peng, [address] [place] [address] 10/28/2024 1:30 PM EST Office Visit Ophthalmology [facility] [address] [place] [address] Washington Gordon MD [address] [place] [address] 12/15/2024 4:20 PM EDT [facility] [address] [place] [phone] Elie Dixon MD [address] [place] [address] 12/23/2024 10:30 AM EDT Office Visit Ophthalmology [facility] [address] [place] [address] Archana Nava MD [address] [place] [address] 12/24/2024 10:30 AM EDT [facility] [address] [place] [address] Angela Briggs CRNP [address] [place] [address] 01/22/2025 1:15 PM EDT Imaging Radiology [facility] [address] [place] [address] Health Maintenance Due Date Last Done Comments [...] 08/0 04/2024, 04/24/2024, Additional history exists GFR 04/06/2025 10/07/2024, 09/24, 10/05/2024, Additional history exists Diabetic Eye Exam 06/04/2025 06/04/2024, , 06/04/2024, Additional history exists O2 ASSESSMENT COMPLETED IN PAST YEAR FOR COPD 10/07/2025 10/07/2024 Lipid Panel 04/24/2029 04/24/2024, 08/0 09/2023, 12/26/2023, [...] this encounter Medical Devices Implanted Type Area Game Technician Device Identifier Shelf Expiration Date Model / Serial / Lot Cath Drainage 10fr [facility]-10-038 - [id number] Implanted:Qty : 1 on 05/07/2023 at [facility] Right: Abdomen GFRANQ [id number] 02/15/2026 [facility]-10-03 8 / / [id number] documented as of this encounter Procedures Procedure Name Priority Date/Time Associated Diagnosis Comments ECHO, TTE, LIMITED Routine 10/06/2024 11 :31 AM EST Heart failure (HCC) documented in this encounter Visit Diagnoses Diagnosis SOB (shortness of breath)- Primary Shortness of breath Chronic kidney disease with symptom management only, stage 3 (moderate) (HCC) documented in this encounter Administered Medications Inactive Administered Medications - up to 3 most recent administrations Medication Order MAR Action Action Date Dose Rate Site perflutren lipid microsphere inj SUSP 1.956 mg 1.956 mg, Intravenous, ONCE PRN Other, For Echo Only - Suboptimal Echo Images, Starting on Sun10/06/24 at 1124, Until Sun10/06/24 at 1323, For 2 hours, Administer IVP over 45 seconds, Cardiac Studies_HODHOVIndications:SOB (shortness of breath),Chronic kidney disease with symptom management only, stage 3 (moderate) (HCC) Given 10/06/2024 11:24 AM EST 1.956 mg documented in this encounter Additional Health Concerns Infection Onset Date Last Indicated Resolved Time Per Infection Control - Cont act Isolation Comment:R/o scabies per Dr. Harden 10/03/24 10/03/2024 10/03/2024 documented as of this encounter Advance Directives [...] Power of Attor cristin? No Care Teams Drink Waiter Relationship Specialty Start Date End Date Denis Urbina MD [address] [place] [address] PCP - General Family Medicine 04/17/22 documented as of this encounter
--- OUTSIDE RECORDS SUMMARY | 2025-01-09 05:34 | External Medical Summary ---
Author Name Unknown Address Unknown Organization K2I:LABORATORY [address] Wilner TYLER [address] Laboratory Report Ordering Provider Test Date Status HENNY MONDRAGON 10/07/2024 17:20:00 Final Observation Date Value Abnormality Reference (Units ) Status BUN 10/07/2024 17:20:00 34 Above high normal 6-20 (mg/dL) Final Creatinine 10/07/2024 17:20:00 1.2 Above high normal 0.5-1.0 (mg/dL) Final Glomerular filtration rate/1.73 sq M.predicted [Volume Rate/Area] in Serum, Plasma or Blood by Creatinine-based formula (CKD-EPI) 10/07/2024 17:20:00 49 Below low normal >=60 (mL/min) Final eGFR is calculated based on the CKD-EPI 2020 equation. Sodium 10/07/2024 17:20:00 138 135-146 (m mol/L) Final Potassium 10/07/2024 17:20:00 4.5 3.5-5.1 (m mol/L) Final Cl 10/07/2024 17:20:00 95 Below low normal 98- 107 (mmol/L) Final CO2 10/07/2024 17:20:00 37 Above high normal 22 -32 (mmol/L) Final Anion gap 10/07/2024 17:20:00 6 Below low normal 7-1 5 (mmol/L) Final Glucose 10/07/2024 17:20:00 151 Above high normal 70 -120 (mg/dL) Final Calcium 10/07/2024 17:20:00 8.7 8.4-10.2 ( mg/dL) Final Performing Location LABORATORY [address] Wilner TYLER [address]
--- OUTSIDE RECORDS SUMMARY | 2025-01-09 05:34 | External Medical Summary ---
Author Name Unknown Address Unknown Organization [facility] [address] Wilner [place] [address] Laboratory Report Ordering Provider Test Date Status ANITA SIMMONS 10/07/2024 04:42:00 Final Observation Date Value Abnormality Reference (Units ) Status BUN 10/07/2024 04:42:00 37 Above high normal 6-20 (mg/dL) Final Creatinine 10/07/2024 04:42:00 1.4 Above high normal 0.5-1.0 (mg/dL) Final Glomerular filtration rate/1.73 sq M.predicted [Volume Rate/Area] in Serum, Plasma or Blood by Creatinine-based formula (CKD-EPI) 10/07/2024 04:42:00 42 Below low normal >=60 (mL/min) Final eGFR is calculated based on the CKD-EPI 2020 equation. Sodium 10/07/2024 04:42:00 138 135-146 (m mol/L) Final Potassium 10/07/2024 04:42:00 4.9 3.5-5.1 (m mol/L) Final Cl 10/07/2024 04:42:00 98 98-107 (mm ol/L) Final CO2 10/07/2024 04:42:00 35 Above high normal 22 -32 (mmol/L) Final Anion gap 10/07/2024 04:42:00 5 Below low normal 7-1 5 (mmol/L) Final Glucose 10/07/2024 04:42:00 154 Above high normal 70 -120 (mg/dL) Final Calcium 10/07/2024 04:42:00 8.8 8.4-10.2 ( mg/dL) Final Performing Location LABORATORY [address] [place]ner [place] [address]
--- OUTSIDE RECORDS SUMMARY | 2025-01-09 05:34 | External Medical Summary ---
Author Name Unknown Address Unknown Organization : Laboratory Report Ordering Provider Test Date Status LOUISE JAIME 10/07/2024 15:26:15 Final Observation Date Value Abnormality Reference (Units ) Status Glucose Point of Care 10/07/2024 15:26:15 196 Above high normal 70-120 (mg/dL) Final Performing Location
--- OUTSIDE RECORDS SUMMARY | 2025-01-09 05:34 | External Medical Summary ---
Author Name Unknown Address Unknown Organization [facility] [address] [place]ner [place] [address] Laboratory Report Ordering Provider Test Date Status ANITA SIMMONS 10/07/2024 04:42:00 Final Observation Date Value Abnormality Reference (Units ) Status WBC, Total 10/07/2024 04:42:00 5.69 4.00-10.80 (K/uL) Final RBC 10/07/2024 04:42:00 4.48 3.85-5.15 (M/uL) Final Hemoglobin 10/07/2024 04:42:00 11.8 Below low normal 12.0-15.3 (g/dL) Final HCT 10/07/2024 04:42:00 41.1 36.0-45.2 (%) Final MCV 10/07/2024 04:42:00 91.7 81.5-97.5 (fL) Final MCH 10/07/2024 04:42:00 26.3 27.0-34.0 (pg) Final MCHC 10/07/2024 04:42:00 28.7 32.0-36.0 (g/dL) Final RDW 10/07/2024 04:42:00 14.5 11.5-15.5 (%) Final Platelets 10/07/2024 04:42:00 174 140-400 (K/uL) Final MPV 10/07/2024 04:42:00 9.0 6.6-11.1 (fL) Final Nucleated erythrocytes/100 leukocytes [Ratio] in Blood by Automated count 10/07/2024 04:42:00 0 <=0 (/100 WBCs) Final Performing Location LABORATORY [address] Wilner [place] [address]
--- OUTSIDE RECORDS SUMMARY | 2025-01-09 05:34 | External Medical Summary ---
Author Name Unknown Address Unknown Organization [facility] [address] [place] [address] Laboratory Report Ordering Provider Test Date Status ANITA SIMMONS 10/08/2024 06:38:00 Final Observation Date Value Abnormality Reference (Units ) Status BUN 10/08/2024 06:38:00 35 Above high normal 6-20 (mg/dL) Final Creatinine 10/08/2024 06:38:00 1.3 Above high normal 0.5-1.0 (mg/dL) Final Glomerular filtration rate/1.73 sq M.predicted [Volume Rate/Area] in Serum, Plasma or Blood by Creatinine-based formula (CKD-EPI) 10/08/2024 06:38:00 45 Below low normal >=60 (mL/min) Final eGFR is calculated based on the CKD-EPI 2020 equation. Sodium 10/08/2024 06:38:00 139 135-146 (m mol/L) Final Potassium 10/08/2024 06:38:00 4.5 3.5-5.1 (m mol/L) Final Cl 10/08/2024 06:38:00 95 Below low normal 98- 107 (mmol/L) Final CO2 10/08/2024 06:38:00 37 Above high normal 22 -32 (mmol/L) Final Anion gap 10/08/2024 06:38:00 7 7-15 (mmol /L) Final Glucose 10/08/2024 06:38:00 148 Above high normal 70 -120 (mg/dL) Final Calcium 10/08/2024 06:38:00 8.7 8.4-10.2 ( mg/dL) Final Performing Location LABORATORY [address] [place]ner [place] [address]
--- OUTSIDE RECORDS SUMMARY | 2025-01-09 05:34 | External Medical Summary ---
Author Name Unknown Address Unknown Organization : Laboratory Report Ordering Provider Test Date Status ALEJANDRO FLAHERTY 10/08/2024 16:27:48 Final Observation Date Value Abnormality Reference (Units ) Status Glucose Point of Care 10/08/2024 16:27:48 124 Above high normal 70-120 (mg/dL) Final Performing Location
--- OUTSIDE RECORDS SUMMARY | 2025-01-09 05:35 | External Medical Summary ---
Author Name Unknown Address Unknown Organization : Laboratory Report Ordering Provider Test Date Status LOUISE JAIME 10/05/2024 12:11:03 Final Observation Date Value Abnormality Reference (Units ) Status Glucose Point of Care 10/05/2024 12:11:03 152 Above high normal 70-120 (mg/dL) Final Performing Location
--- OUTSIDE RECORDS SUMMARY | 2025-01-09 05:35 | External Medical Summary ---
Author Name Unknown Address Unknown Organization [facility] - [address] [place] [address] Dr. [place]ner [place] [address] Laboratory Report Ordering Provider Test Date Status JUVE SIMMONSLive 10/06/2024 04:03:00 Final Observation Date Value Abnormality Reference (Units ) Status Magnesium 10/06/2024 04:03:00 1.9 1.5-2.6 (m g/dL) Final Performing Location LABORATORY [facility] - [address] [place] [address] Dr. Wilner [place] [address]
--- OUTSIDE RECORDS SUMMARY | 2025-01-09 05:35 | External Medical Summary ---
Author Name Unknown Address Unknown Organization [facility] - [address] [place] [address] Laboratory Report Ordering Provider Test Date Status SYED FREEMAN 10/04/2024 15:38:59 Final Observation Date Value Abnormality Reference (Units) Status Body temperature 10/04/2024 15:38:59 37.0 (C) Final pH of Arterial blood 10/04/2024 15:38:59 7.229 Below low normal 7.350-7.450 (units) Final Carbon dioxide [Partial pressure] in Arterial blood 10/04/2024 15:38:59 76.7 Above upper panic limits 35.0-45.0 (mmHg) Final Oxygen [Partial pressure] in Arterial blood 10/04/2024 15:38:59 85.7 75.0-100.0 (mmHg) Final Base excess, Arterial 10/04/2024 15:38:59 2.0 -2.0-2.0 (mmol/L) Final Hemoglobin [Mass/volume] in Blood by Oximetry 10/04/2024 15:38:59 11.0 Below low normal 12.0-15.3 (g/dL) Final Oxyhemoglobin, Arterial (FO2HB) 10/04/2024 15:38:59 93.3 Below low normal 94.0-99.0 (% total Hgb) Final Carboxyhemoglobin 10/04/2024 15:38:59 1.3 <=1.5 (% total Hgb) Final Smokers: 0-9.0 % Methemoglobin 10/04/2024 15:38:59 0.4 <=1.5 (% total Hgb) Final Deoxyhemoglobin/Hemog lobin.total in Arterial blood 10/04/2024 15:38:59 5.0 0.0-5.0 (% total Hgb) Final Oxygen content in Arterial blood 10/04/2024 15:38:59 14.6 Below low normal 15.0-24.0 (%vol) Final Oxygen/Total gas setting [Volume Fraction] Ventilator 10/04/2024 15:38:59 40 (%) Final O2 FLOW, ARTERIAL - [facility] 10/04/2024 15:38:59 Not Provided (L/min) Final Bicarbonate, Venous, POC (i-STAT) 10/04/2024 15:38:59 30.9 23.0-31.0 (mmol/L) Final Performing Location LABORATORY [address] [place]ner [place] [address]
--- OUTSIDE RECORDS SUMMARY | 2025-01-09 05:35 | External Medical Summary ---
Author Name Unknown Address Unknown Organization [facility] - [address] [facility] [address] Laboratory Report Ordering Provider Test Date Status ZULEMAWERNER BARKLEY 10/05/2024 03:50:00 Final Observation Date Value Abnormality Reference (Units ) Status Folic Acid 10/05/2024 03:50:00 19.8 >4.5 (ng/ mL) Final Performing Location LABORATORY [facility] - [address] [facility] [address]
--- OUTSIDE RECORDS SUMMARY | 2025-01-09 05:35 | External Medical Summary ---
Author Name Unknown Address Unknown Organization : Laboratory Report Ordering Provider Test Date Status TANISHA BLISS 10/04/2024 18:21:14 Final Observation Date Value Abnormality Reference (Units ) Status Glucose Point of Care 10/04/2024 18:21:14 142 Above high normal 70-120 (mg/dL) Final Performing Location
--- OUTSIDE RECORDS SUMMARY | 2025-01-09 05:35 | External Medical Summary ---
Author Name Unknown Address Unknown Organization : Laboratory Report Ordering Provider Test Date Status TANISHA BLISS 10/04/2024 20:38:47 Final Observation Date Value Abnormality Reference (Units ) Status Glucose Point of Care 10/04/2024 20:38:47 175 Above high normal 70-120 (mg/dL) Final Performing Location
--- OUTSIDE RECORDS SUMMARY | 2025-01-09 05:35 | External Medical Summary ---
Author Name Unknown Address Unknown Organization [facility] [address] [place]ner [place] [address] Laboratory Report Ordering Provider Test Date Status JOSÉ MANUEL CERRATO 10/04/2024 13:46:00 Final Observation Date Value Abnormality Reference (Units ) Status BUN 10/04/2024 13:46:00 46 Above high normal 6-20 (mg/dL) Final Creatinine 10/04/2024 13:46:00 1.6 Above high normal 0.5-1.0 (mg/dL) Final Glomerular filtration rate/1.73 sq M.predicted [Volume Rate/Area] in Serum, Plasma or Blood by Creatinine-based formula (CKD-EPI) 10/04/2024 13:46:00 35 Below low normal >=60 (mL/min) Final eGFR is calculated based on the CKD-EPI 2020 equation. Sodium 10/04/2024 13:46:00 139 135-146 (m mol/L) Final Potassium 10/04/2024 13:46:00 5.1 3.5-5.1 (m mol/L) Final Cl 10/04/2024 13:46:00 101 98-107 (mm ol/L) Final CO2 10/04/2024 13:46:00 29 22-32 (mmo l/L) Final Anion gap 10/04/2024 13:46:00 9 7-15 (mmol /L) Final Glucose 10/04/2024 13:46:00 131 Above high normal 70 -120 (mg/dL) Final Calcium 10/04/2024 13:46:00 8.6 8.4-10.2 ( mg/dL) Final Performing Location LABORATORY [address] Wilner [place] [address]
--- OUTSIDE RECORDS SUMMARY | 2025-01-09 05:35 | External Medical Summary ---
Author Name Unknown Address Unknown Organization : Laboratory Report Ordering Provider Test Date Status TANISHA BLISS 10/04/2024 08:55:31 Final Observation Date Value Abnormality Reference (Units ) Status Glucose Point of Care 10/04/2024 08:55:31 87 70-120 (mg/dL) Final Performing Location
--- OUTSIDE RECORDS SUMMARY | 2025-01-09 05:35 | External Medical Summary ---
Author Name Unknown Address Unknown Organization : Laboratory Report Ordering Provider Test Date Status LOUISE JAIME 10/05/2024 20:46:54 Final Observation Date Value Abnormality Reference (Units ) Status Glucose Point of Care 10/05/2024 20:46:54 163 Above high normal 70-120 (mg/dL) Final Performing Location
--- OUTSIDE RECORDS SUMMARY | 2025-01-09 05:35 | External Medical Summary ---
Author Name Unknown Address Unknown Organization [facility] - [address] [place] [address] Laboratory Report Ordering Provider Test Date Status JOSÉ MANUEL CERRATO 10/04/2024 12:09:22 Final Observation Date Value Abnormality Reference (Units) Status Body temperature 10/04/2024 12:09:22 37.0 (C) Final pH of Arterial blood 10/04/2024 12:09:22 7.215 Below low normal 7.350-7.450 (units) Final Carbon dioxide [Partial pressure] in Arterial blood 10/04/2024 12:09:22 79.5 Above upper panic limits 35.0-45.0 (mmHg) Final Oxygen [Partial pressure] in Arterial blood 10/04/2024 12:09:22 86.9 75.0-100.0 (mmHg) Final Base excess, Arterial 10/04/2024 12:09:22 1.6 -2.0-2.0 (mmol/L) Final Hemoglobin [Mass/volume] in Blood by Oximetry 10/04/2024 12:09:22 11.4 Below low normal 12.0-15.3 (g/dL) Final Oxyhemoglobin, Arterial (FO2HB) 10/04/2024 12:09:22 93.3 Below low normal 94.0-99.0 (% total Hgb) Final Carboxyhemoglobin 10/04/2024 12:09:22 1.3 <=1.5 (% total Hgb) Final Smokers: 0-9.0 % Methemoglobin 10/04/2024 12:09:22 0.5 <= 1.5 (% total Hgb) Final Deoxyhemoglobin/Hemoglobin .total in Arterial blood 10/04/2024 12:09:22 4.9 0.0 -5.0 (% total Hgb) Final Oxygen content in Arterial blood 10/04/2024 12:09:22 15.1 15.0-24.0 (%vol) Renetta l Oxygen/Total gas setting [Volume Fraction] Ventilator 10/04/2024 12:09:22 40 (%) Final O2 FLOW, ARTERIAL - [facility] 10/04/2024 12:09:22 Not Provided (L/min) Final Bicarbonate, Venous, POC (i-STAT) 10/04/2024 12:09:22 31.0 23.0-31.0 (mmol/L) Fi nal Performing Location LABORATORY [address] Wilner [place] [address]
--- OUTSIDE RECORDS SUMMARY | 2025-01-09 05:35 | External Medical Summary ---
Author Name Unknown Address Unknown Organization [facility] [address] [place] [address] Laboratory Report Ordering Provider Test Date Status WERNER VIDAL 10/05/2024 12:09:59 Final ADMITTED patient Observation Date Value Abnormality Reference (Units ) Status Adenovirus DNA [Presence] in Nasopharynx by DUGLAS with non-probe detection 10/05/2024 12:09:59 Negative Negative Final Human coronavirus 229E RNA [Presence] in Nasopharynx by DUGLAS with non-probe detection 10/05/2024 12:09:59 Negative Negative Final Human coronavirus HKU1 RNA [Presence] in Nasopharynx by DUGLAS with non-probe detection 10/05/2024 12:09:59 Negative Negative Final Human coronavirus NL63 RNA [Presence] in Nasopharynx by DUGLAS with non-probe detection 10/05/2024 12:09:59 Negative Negative Final Human coronavirus OC43 RNA [Presence] in Nasopharynx by DUGLAS with non-probe detection 10/05/2024 12:09:59 Negative Negative Final SARS-CoV-2 (COVID-19) RNA [Presence] in Nasopharynx by DUGLAS with non-probe detection 10/05/2024 12:09:59 Negative Negative Final Human metapneumovirus RNA [Presence] in Nasopharynx by DUGLAS with non-probe detection 10/05/2024 12:09:59 Negative Negative Final Rhinovirus+Enterovirus RNA [Presence] in Nasopharynx by DUGLAS with non-probe detection 10/05/2024 12:09:59 Negative Negative Final Influenza virus A RNA [Presence] in Nasopharynx by DUGLAS with non-probe detection 10/05/2024 12:09:59 Negative Negative Final Influenza virus B RNA [Presence] in Nasopharynx by DUGLAS with non-probe detection 10/05/2024 12:09:59 Negative Negative Final Parainfluenza virus 1 RNA [Presence] in Nasopharynx by DUGLAS with non-probe detection 10/05/2024 12:09:59 Negative Negative Final Parainfluenza virus 2 RNA [Presence] in Nasopharynx by DUGLAS with non-probe detection 10/05/2024 12:09:59 Negative Negative Final Parainfluenza virus 3 RNA [Presence] in Nasopharynx by DUGLAS with non-probe detection 10/05/2024 12:09:59 Negative Negative Final Parainfluenza virus 4 RNA [Presence] in Nasopharynx by DUGLAS with non-probe detection 10/05/2024 12:09:59 Negative Negative Final Respiratory syncytial virus RNA [Presence] in Nasopharynx by DUGLAS with non-probe detection 10/05/2024 12:09:59 Negative Negative Final Bordetella pertussis.pertussis toxin promoter region [Presence] in Nasopharynx by DUGLAS with non-probe detection 10/05/2024 12:09:59 Negative Negative Final Chlamydophila pneumoniae DNA [Presence] in Nasopharynx by DUGLAS with non-probe detection 10/05/2024 12:09:59 Negative Negative Final Mycoplasma pneumoniae DNA [Presence] in Nasopharynx by DUGLAS with non-probe detection 10/05/2024 12:09:59 Negative Negative Final Bordetella parapertussis [id number] DNA [Presence] in Nasopharynx by DUGLAS with non-probe detection 10/05/2024 12:09:59 Negative Negative Final The primers that detect Rhin ovirus may cross react with some Enterorviruses. The validation of bronchial specimens, tracheal aspirates, and throats for this assay was developed and performance characteristics determined by [employer]. �The validation of alternate specimen types has not been cleared or approved by the U.S. Food and Drug Administration (FDA). �It has been determined that such clearance or approval is not necessary. Performing [facility] LABORATORY [address] [place] [address]
--- OUTSIDE RECORDS SUMMARY | 2025-01-09 05:35 | External Medical Summary ---
Author Name Unknown Address Unknown Organization [facility]LAB[facility]ATORY [address] Wilner [place] [address] Laboratory Report Ordering Provider Test Date Status ANITA SIMMONS 10/06/2024 04:03:00 Final Observation Date Value Abnormality Reference (Units ) Status BUN 10/06/2024 04:03:00 40 Above high normal 6-20 (mg/dL) Final Creatinine 10/06/2024 04:03:00 1.3 Above high normal 0.5-1.0 (mg/dL) Final Glomerular filtration rate/1.73 sq M.predicted [Volume Rate/Area] in Serum, Plasma or Blood by Creatinine-based formula (CKD-EPI) 10/06/2024 04:03:00 44 Below low normal >=60 (mL/min) Final eGFR is calculated based on the CKD-EPI 2020 equation. Sodium 10/06/2024 04:03:00 137 135-146 (m mol/L) Final Potassium 10/06/2024 04:03:00 4.8 3.5-5.1 (m mol/L) Final Cl 10/06/2024 04:03:00 99 98-107 (mm ol/L) Final CO2 10/06/2024 04:03:00 31 22-32 (mmo l/L) Final Anion gap 10/06/2024 04:03:00 7 7-15 (mmol /L) Final Glucose 10/06/2024 04:03:00 303 Above high normal 70 -120 (mg/dL) Final Calcium 10/06/2024 04:03:00 8.4 8.4-10.2 ( mg/dL) Final Performing Location LABORATORY [address] Wilner [place] [address]
--- OUTSIDE RECORDS SUMMARY | 2025-01-09 05:35 | External Medical Summary ---
Author Name Unknown Address Unknown Organization [facility]LAB[facility]ATORY [address] Wilner [place] [address] Laboratory Report Ordering Provider Test Date Status WERNER VIDAL 10/05/2024 11:47:00 Final Observation Date Value Abnormality Reference (Units ) Status Iron 10/05/2024 11:47:00 52 33-151 (ug /dL) Final Iron-binding capacity 10/05/2024 11:47:00 272 250-425 (ug/dL) Final Transferrin Sat % 10/05/2024 11:47:00 19 15 -55 (%) Final Performing Location LABORATORY [address] Wilner [place] [address]
--- OUTSIDE RECORDS SUMMARY | 2025-01-09 05:35 | External Medical Summary ---
Author Name Unknown Address Unknown Organization [facility]:LABORATORY [facility] - [address] [place] [address] Laboratory Report Ordering Provider Test Date Status WERNER VIDAL 10/05/2024 03:50:00 Final Observation Date Value Abnormality Reference (Units ) Status Phosphate 10/05/2024 03:50:00 4.2 2.5-4.8 (m g/dL) Final Performing Location LABORATORY [facility] - [address] [place] [address] Dr. Wilner [place] [address]
--- OUTSIDE RECORDS SUMMARY | 2025-01-09 05:35 | External Medical Summary ---
Author Name Unknown Address Unknown Organization [facility]LABORATORY [facility] - [address] [place] [address] Laboratory Report Ordering Provider Test Date Status JOSÉ MANUEL CERRATO 10/04/2024 09:40:00 Final Observation Date Value Abnormality Reference (Units) Status Body temperature 10/04/2024 09:40:00 37.0 (C) Final pH of Venous blood 10/04/2024 09:40:00 7.176 Below lower panic limits 7.320-7.430 (units) Final Carbon dioxide [Partial pressure] in Venous blood 10/04/2024 09:40:00 91.4 Above high normal 40.0-60.0 (mmHg) Final Oxygen [Partial pressure] in Venous blood 10/04/2024 09:40:00 45.4 25.0-50.0 (mmHg) Final Base excess, Capillary 10/04/2024 09:40:00 1.7 -2.0-2.0 (mmol/L) Final Hemoglobin [Mass/volume] in Blood by Oximetry 10/04/2024 09:40:00 12.1 12.0-15.3 (g/dL) Final Oxyhemoglobin, Venous (FO2HB) 10/04/2024 09:40:00 70.2 40.0-85.0 (% total Hgb) Final Carboxyhemoglobin 10/04/2024 09:40:00 1.2 <=1.5 (% total Hgb) Final Smokers: 0-9.0 % Methemoglobin 10/04/2024 09:40:00 0.3 <= 1.5 (% total Hgb) Final Deoxyhemoglobin/Hemoglo bin.total in Venous blood 10/04/2024 09:40:00 28.3 (% total Hgb) Final Oxygen content in Venous blood 10/04/2024 09:40:00 11.9 7.0-18.0 (%vol) Final Bicarbonate, Venous, POC (i-STAT) 10/04/2024 09:40:00 32.5 Above high normal 23.0-31.0 (mmol/L) Final Performing Location LABORATORY [address] Wilner [place] [address]
--- OUTSIDE RECORDS SUMMARY | 2025-01-09 05:35 | External Medical Summary ---
Author Name Unknown Address Unknown Organization [facility]2I:LABORATORY [facility] - [address] [place] [address] Dr. Wilner [place] [address] Laboratory Report Ordering Provider Test Date Status JUVE SIMMONSLive 10/05/2024 03:50:00 Final Observation Date Value Abnormality Reference (Units ) Status Magnesium 10/05/2024 03:50:00 1.9 1.5-2.6 (m g/dL) Final Performing Location LABORATORY [facility] - [address] [place] [address] Dr. Wilner [place] [address]
--- OUTSIDE RECORDS SUMMARY | 2025-01-09 05:35 | External Medical Summary ---
Author Name Unknown Address Unknown Organization : Laboratory Report Ordering Provider Test Date Status LOUISE JAIME 10/06/2024 10:31:51 Final Observation Date Value Abnormality Reference (Units ) Status Glucose Point of Care 10/06/2024 10:31:51 233 Above high normal 70-120 (mg/dL) Final Performing Location
--- OUTSIDE RECORDS SUMMARY | 2025-01-09 05:35 | External Medical Summary ---
Author Name Unknown Address Unknown Organization [facility]:LABORATORY [facility] - [address] Wilner [place] [address] Laboratory Report Ordering Provider Test Date Status CLARITZA KENNEDY 10/04/2024 07:55:00 Final Observation Date Value Abnormality Reference (Units ) Status SYNC LEUKOCYTES IN BLOOD BY AUTOMATED COUNT 10/04/2024 07:55:00 6.64 4.00-10.80 (K/uL) Final Segs 10/04/2024 07:55:00 68.2 40.0-75.0 (%) Final Lymphs % 10/04/2024 07:55:00 15.1 Below low normal 18.0-42.0 (%) Final Monos 10/04/2024 07:55:00 9.6 1.0-11.0 (%) Final Eosinophils 10/04/2024 07:55:00 4.8 0.0-6.0 (%) Final Basos 10/04/2024 07:55:00 0.8 0.0-2.0 (%) Final Immature Granulocyte, Percent 10/04/2024 07:55:00 1.5 0.0-2.0 (%) Final Absolute Segs 10/04/2024 07:55:00 4.53 1.80-7.70 (K/uL) Final Lymphs, absolute 10/04/2024 07:55:00 1.00 1.00-4.80 (K/ul) Final Monos, Abs 10/04/2024 07:55:00 0.64 0.00-1.10 (K/uL) Final Eos, Abs 10/04/2024 07:55:00 0.32 0.00-0.70 (K/uL) Final Basos, Abs 10/04/2024 07:55:00 0.05 0.00-0.20 (K/uL) Final Immature Granulocytes, Number 10/04/2024 07:55:00 0.10 0.00-0.20 (K/uL) Final Performing Location LABORATORY [facility] - [address] [facility] [address] Wilner [place] [address]
--- OUTSIDE RECORDS SUMMARY | 2025-01-09 05:35 | External Medical Summary ---
Author Name Unknown Address Unknown Organization [facility]:LABORATORY [facility] - [address] [place] [address] Laboratory Report Ordering Provider Test Date Status CLARITZA KENNEDY 10/04/2024 07:55:00 Final Observation Date Value Abnormality Reference (Units ) Status BUN 10/04/2024 07:55:00 46 Above high normal 6-20 (mg/dL) Final Creatinine 10/04/2024 07:55:00 1.7 Above high normal 0.5-1.0 (mg/dL) Final Glomerular filtration rate/1.73 sq M.predicted [Volume Rate/Area] in Serum, Plasma or Blood by Creatinine-based formula (CKD-EPI) 10/04/2024 07:55:00 32 Below low normal >=60 (mL/min) Final eGFR is calculated based on the CKD-EPI 2020 equation. Sodium 10/04/2024 07:55:00 139 135-146 (m mol/L) Final Potassium 10/04/2024 07:55:00 5.4 Above high normal 3. 5-5.1 (mmol/L) Final Cl 10/04/2024 07:55:00 102 98-107 (mm ol/L) Final CO2 10/04/2024 07:55:00 31 22-32 (mmo l/L) Final Anion gap 10/04/2024 07:55:00 6 Below low normal 7-1 5 (mmol/L) Final Glucose 10/04/2024 07:55:00 100 70-120 (mg /dL) Final Albumin 10/04/2024 07:55:00 3.4 Below low normal 3.8 -5.0 (g/dL) Final AST (Aspartate aminotransferase) 10/04/2024 07:55:00 17 10-35 (U/L) Fin al Results may be falsely eleva jessy due to hemolysis. Alk Phos 10/04/2024 07:55:00 84 35-130 (U/ L) Final Bilirubin, Total 10/04/2024 07:55:00 0.3 <=1 .2 (mg/dL) Final Calcium 10/04/2024 07:55:00 8.6 8.4-10.2 ( mg/dL) Final Protein 10/04/2024 07:55:00 7.2 6.0-8.3 (g /dL) Final ALT (Alanine aminotransferase) 10/04/2024 07:55:00 7 Below low normal 10-35 (U/L) Final Performing Location LABORATORY [address] [place] [address]
--- OUTSIDE RECORDS SUMMARY | 2025-01-09 05:35 | External Medical Summary ---
Author Name Unknown Address Unknown Organization [facility]:LABORATORY [address] [place]ner [place] [address] Laboratory Report Ordering Provider Test Date Status AJGamaSHORTYYA 10/04/2024 13:46:00 Final Observation Date Value Abnormality Reference (Units ) Status Potassium, Whole Blood 10/04/2024 13:46:00 5.0 3.5-5.1 (mmol/L) Final Performing Location LABORATORY [address] [place]ner [place] [address]
--- OUTSIDE RECORDS SUMMARY | 2025-01-09 05:35 | External Medical Summary ---
Author Name Unknown Address Unknown Organization : Laboratory Report Ordering Provider Test Date Status LOUISE JAIME 10/06/2024 05:57:54 Final Observation Date Value Abnormality Reference (Units ) Status Glucose Point of Care 10/06/2024 05:57:54 270 Above high normal 70-120 (mg/dL) Final Performing Location
--- OUTSIDE RECORDS SUMMARY | 2025-01-09 05:35 | External Medical Summary ---
Author Name Unknown Address Unknown Organization : Laboratory Report Ordering Provider Test Date Status LOUISE JAIME 10/05/2024 17:02:33 Final Observation Date Value Abnormality Reference (Units ) Status Glucose Point of Care 10/05/2024 17:02:33 146 Above high normal 70-120 (mg/dL) Final Performing Location
--- OUTSIDE RECORDS SUMMARY | 2025-01-09 05:35 | External Medical Summary ---
Author Name Unknown Address Unknown Organization K2I:LABORATORY [facility] - [address] [place] [address] Laboratory Report Ordering Provider Test Date Status JOSÉ MANUEL CERRATO 10/04/2024 21:26:53 Final Observation Date Value Abnormality Reference (Units) Status Body temperature 10/04/2024 21:26:53 37.0 (C) Final pH of Arterial blood 10/04/2024 21:26:53 7.257 Below low normal 7.350-7.450 (units) Final Carbon dioxide [Partial pressure] in Arterial blood 10/04/2024 21:26:53 74.9 Above upper panic limits 35.0-45.0 (mmHg) Final Oxygen [Partial pressure] in Arterial blood 10/04/2024 21:26:53 67.0 Below low normal 75.0-100.0 (mmHg) Final Base excess, Arterial 10/04/2024 21:26:53 3.7 Above high normal -2.0-2.0 (mmol/L) Final Hemoglobin [Mass/volume] in Blood by Oximetry 10/04/2024 21:26:53 11.3 Below low normal 12.0-15.3 (g/dL) Final Oxyhemoglobin, Arterial (FO2HB) 10/04/2024 21:26:53 89.0 Below low normal 94.0-99.0 (% total Hgb) Final Carboxyhemoglobin 10/04/2024 21:26:53 1.3 <=1.5 (% total Hgb) Final Smokers: 0-9.0 % Methemoglobin 10/04/2024 21:26:53 0.4 <=1.5 (% total Hgb) Final Deoxyhemoglobin/Hemog lobin.total in Arterial blood 10/04/2024 21:26:53 9.3 Above high normal 0.0-5.0 (% total Hgb) Final Oxygen content in Arterial blood 10/04/2024 21:26:53 14.2 Below low normal 15.0-24.0 (%vol) Final Oxygen/Total gas setting [Volume Fraction] Ventilator 10/04/2024 21:26:53 Not Provided (%) Final O2 FLOW, ARTERIAL - [facility] 10/04/2024 21:26:53 Not Provided (L/min) Final Bicarbonate, Venous, POC (i-STAT) 10/04/2024 21:26:53 32.2 Above high normal 23.0-31.0 (mmol/L) Final Performing Location LABORATORY [address] [place] [address]
--- OUTSIDE RECORDS SUMMARY | 2025-01-09 05:35 | External Medical Summary ---
Author Name Unknown Address Unknown Organization K01:LABORATORY [facility] - [address] [facility] [place] [address] Laboratory Report Ordering Provider Test Date Status FLORENTINElizabethWERNER 10/05/2024 03:50:00 Final Observation Date Value Abnormality Reference (Units ) Status Vitamin B12 10/05/2024 03:50:00 [phone] (pg/mL) Final Performing Location [facility]ATORY [facility] - [address] [facility] [address]
--- OUTSIDE RECORDS SUMMARY | 2025-01-09 05:35 | External Medical Summary ---
Author Name Unknown Address Unknown Organization K2I:LABORATORY [facility] - [address] [place] [address] Dr. [place] [address] Laboratory Report Ordering Provider Test Date Status WERNER VIDAL 10/05/2024 11:47:00 Final Observation Date Value Abnormality Reference (Units ) Status Ferritin 10/05/2024 11:47:00 73 13-150 (ng /mL) Final Postmenopausal women have hi gher ferritin levels than pre-menopausal women. The above reference interval is based on pre-menopausal women. Performing Location LABORATORY [facility] - [address] [place] [address]
--- OUTSIDE RECORDS SUMMARY | 2025-01-09 05:35 | External Medical Summary ---
Author Name Unknown Address Unknown Organization : Laboratory Report Ordering Provider Test Date Status TANISHA BLISS 10/04/2024 12:17:18 Final Observation Date Value Abnormality Reference (Units ) Status Glucose Point of Care 10/04/2024 12:17:18 136 Above high normal 70-120 (mg/dL) Final Performing Location
--- OUTSIDE RECORDS SUMMARY | 2025-01-09 05:35 | External Medical Summary ---
Author Name Unknown Address Unknown Organization K2I:LABORATORY [address] [place] [address] Laboratory Report Ordering Provider Test Date Status ANITA SIMMONS 10/05/2024 03:50:00 Final Observation Date Value Abnormality Reference (Units ) Status WBC, Total 10/05/2024 03:50:00 6.06 4.00-10.80 (K/uL) Final RBC 10/05/2024 03:50:00 3.98 3.85-5.15 (M/uL) Final Hemoglobin 10/05/2024 03:50:00 10.5 Below low normal 12.0-15.3 (g/dL) Final HCT 10/05/2024 03:50:00 36.5 36.0-45.2 (%) Final MCV 10/05/2024 03:50:00 91.7 81.5-97.5 (fL) Final MCH 10/05/2024 03:50:00 26.4 27.0-34.0 (pg) Final MCHC 10/05/2024 03:50:00 28.8 32.0-36.0 (g/dL) Final RDW 10/05/2024 03:50:00 14.6 11.5-15.5 (%) Final Platelets 10/05/2024 03:50:00 156 140-400 (K/uL) Final MPV 10/05/2024 03:50:00 9.1 6.6-11.1 (fL) Final Nucleated erythrocytes/100 leukocytes [Ratio] in Blood by Automated count 10/05/2024 03:50:00 0 <=0 (/100 WBCs) Final Performing Location LABORATORY [address] [place] [address]
--- OUTSIDE RECORDS SUMMARY | 2025-01-09 05:35 | External Medical Summary ---
Author Name Unknown Address Unknown Organization K2I:[facility] - [address] [place] [address] Laboratory Report Ordering Provider Test Date Status WERNER VIDAL 10/05/2024 11:07:55 Final Observation Date Value Abnormality Reference (Units ) Status Body temperature 10/05/2024 11:07:55 37.0 (C) Final pH of Arterial blood 10/05/2024 11:07:55 7.265 Below low normal 7.350-7.450 (units) Final Carbon dioxide [Partial pressure] in Arterial blood 10/05/2024 11:07:55 78.0 Above upper panic limits 35.0-45.0 (mmHg) Final Results rechecked. Oxygen [Partial pressure] in Arterial blood 10/05/2024 11:07:55 59.6 Below low normal 75.0-100.0 (mmHg) Final Base excess, Arterial 10/05/2024 11:07:55 5.6 Above high normal -2.0-2.0 (mmol/L) Final Hemoglobin [Mass/volume] in Blood by Oximetry 10/05/2024 11:07:55 10.9 Below low normal 12.0-15.3 (g/dL) Final Oxyhemoglobin, Arterial (FO2HB) 10/05/2024 11:07:55 86.3 Below low normal 94.0-99.0 (% total Hgb) Final Carboxyhemoglobin 10/05/2024 11:07:55 1.4 <=1.5 (% total Hgb) Final Smokers: 0-9.0 % Methemoglobin 10/05/2024 11:07:55 0.4 <=1.5 (% total Hgb) Final Deoxyhemoglobin/Hemog lobin.total in Arterial blood 10/05/2024 11:07:55 11.9 Above high normal 0.0-5.0 (% total Hgb) Final Oxygen content in Arterial blood 10/05/2024 11:07:55 13.3 Below low normal 15.0-24.0 (%vol) Final Oxygen/Total gas setting [Volume Fraction] Ventilator 10/05/2024 11:07:55 Not Provided (%) Final O2 FLOW, ARTERIAL - [facility] 10/05/2024 11:07:55 6 (L/min) Final Bicarbonate, Venous, POC (i-STAT) 10/05/2024 11:07:55 34.2 Above high normal 23.0-31.0 (mmol/L) Final Performing Location LABORATORY [address] [place] [address]
--- OUTSIDE RECORDS SUMMARY | 2025-01-09 05:36 | External Medical Summary ---
Author Name Unknown Address Unknown Organization K2I:LABORATORY [facility] - [address] [place] [address] Dr. [place] [address] Laboratory Report Ordering Provider Test Date Status JONH ROSE 10/02/2024 19:49:00 Final Observation Date Value Abnormality Reference (Units ) Status Troponin T 10/02/2024 19:49:00 77 Above high normal < =14 (ng/L) Final Performing Location LABORATORY [address] [place] [address]
--- OUTSIDE RECORDS SUMMARY | 2025-01-09 05:36 | External Medical Summary | Summary of Care ---
Author Name Unknown Organization [facility] Address [address] [facility] [address] Phone [phone] Care Team Providers Care Dope House Operator Helper Name Role Phone Denis Urbina MD Primary Care Provider + [phone] Reason for Visit * Reason Onset Date Comments Order Request 10/02/2024 Encounter Details Date Type Department Care Team (Late st Contact Info) Description 10/02/2024 Telephone Wound Care Angie Teran [address] [phone] Paul Peng, [address] [address] Order Request Allergies No known active allergiesdocumented as of this encounter (statuses as of 10/02/2024) Medications Albuterol Sulfate (2.5 MG/3ML) 0.083% Inhalation [...] 06/27/20 22 Active FreeStyle Maria Luz 2 [place] Device Use as directed . 1 Each 06/27/20 22 Active BD Insulin Syringe U/F 30G X 1/2" 0.3 ML (Insulin Syringe-Needle U-100)Indications: Type 2 diabetes mellitus without complication (HCC),Type 2 diabetes mellitus without complication, with long-term current use of insulin (HCC) INJECT UNDER THE SKIN 4 TIMES A DAY 100 Each 2 06/06/20 23 Active Droplet Pen Crawford 31G X 5 MM (Insulin Pen Needle)Indications :Type 2 diabetes mellitus without complication, with long-term current use of insulin (HCC) inject subcutaneously four times a day 1000 Each 06/07/20 23 Active OneTouch UltraSoft LancetsIndications :Type 2 diabetes mellitus without complication, unspecified whether chcf insulin use (HCC) Use as directed 4 [...] 11.9 15 mL 3 01/16/20 24 Active NovoLOG FlexPen 100 UNIT/ML Subcutaneous Solution Pen-injector [...] noon. 2 mL 1 06/04/20 24 Active Cyanocobalamin 1000 MCG Sublingual Tablet SublingualIndicati ons:B12 [...] for Anxiety. 90 Tablet 06/04/20 24 Active Pregabalin 25 MG Oral Capsule (Lyrica)Indication s:Type 2 diabetes mellitus with diabetic polyneuropathy, with long-term current use of insulin (HCC) Take 1 Capsule by mouth in the morning. 30 Capsule 06/04/20 24 Active Simvastatin 20 MG Oral Tablet (Zocor) Take 1 Tablet by mouth every evening. 90 Tablet 06/04/20 24 Active Vitamin D3 50 MCG (2000 UT) Oral CapsuleIndications :Vitamin D deficiency Take 1 Capsule by mouth in the morning. Every morning.. 90 Capsule 06/04/20 24 Active Torsemide 20 MG Oral Tablet (Demadex) Take 3 Tablets by mouth in the morning. 90 Tablet 06/04/20 24 Active Carvedilol 3.125 MG Oral Tablet (Coreg) Take 1 Tablet by mouth 2 times a day with morning and evening meals. 180 Tablet 3 06/04/20 24 Active amLODIPine Besylate 5 MG Oral Tablet (Norvasc) Take 1 Tablet by mouth in the morning. 90 Tablet 3 06/04/20 24 Active Vitamin B-12 1000 MCG Oral Tablet (Cyanocobalamin) PLACE 1,000MCG UNDER THE TONGUE DAILY 90 Tablet 06/06/20 24 Active Ondansetron 4 MG Oral Tablet Disintegrating (Zofran)Indication s:Nausea Place 1 Tablet on tongue every 8 hours as needed for Nausea. dissolve on tongue. 30 Tablet 1 06/09/20 24 Active Multivitamin Adult Oral Tablet Take 1 tablet by mouth daily. 30 Tablet 3 06/09/20 24 Active Silver sulfADIAZINE 1 % External Cream (Silvadene)Indicat ions:Wound of right lower extremity, initial encounter Apply topically to affected area daily. Apply to wound on RLE once daily with dressing changes. 85 g 1 07/25/20 24 Active Doxycycline Hyclate 100 MG Oral CapsuleIndications :Type 2 diabetes with skin ulcer of lower extremity (HCC),Skin ulcer of multiple sites of lower extremity, unspecified laterality, limited to breakdown of skin (HCC) Take 1 Capsule by mouth in the morning and 1 Capsule before bedtime. 20 Capsule 09/04/20 24 Active traMADol HCl 50 MG Oral Tablet (Ultram)Indication s:Skin ulcer of multiple sites of lower extremity, unspecified laterality, limited to breakdown of skin (HCC) Take 1 Tablet by mouth every 8 hours as needed for Pain, Moderate. 15 Tablet 09/23/20 24 Active methylPREDNISolone 4 MG Oral Tablet Therapy Pack (Medrol Dosepack) follow package directions 21 Tablet 09/30/19 25 Active Ketoconazole 2 % External Shampoo (Nizoral) Apply topically to affected area every 3 days for 28 days. Shampoo twice a week 120 mL 1 09/30/19 25 025 Active Hospital, Clinic, or Other [...] IZ PRN 04/17/2024 04/17/2025 Active lidocaine-epinephrine 2 %-1:[id number] inj 6 mgIndications:Moderate nonproliferative diabetic retinopathy of both eyes with macular edema associated with type 2 diabetes mellitus (HCC),Optic nerve drusen, left,6th nerve palsy, right,Combined forms of age-related cataract of both eyes 6 mg IJ PRN 04/17/2024 04/17/2025 Active documented as of this encounter (statuses as of 10/02/2024) Active Problems Problem Noted Date Diagnosed Date Venous stasis ulcers of both lower extremities [...] Protocol Acute respiratory failure with hypercapnia 12/06 Chronic respiratory failure with hypoxia and hyp ercapnia 10/28/2023 Moderate nonproliferative di abetic retinopathy of both eyes with macular edema associated with type 2 diabetes mellitus 10/28/2023 Choledocholithiasis 05/11/2023 Lesion of bone of cervical spine 06/28/2022 BMI 40.0-44.9, adult 06/28/2022 Anxiety state 06/28/2022 Right abducens nerve palsy 06/19/2022 Type 2 diabetes mellitus wit h diabetic polyneuropathy, with long-term current use of insulin 12/10/2019 DDD (degenerative disc disease), lumbar 05/15/20 16 HTN, goal below 140/90 11/07/2014 Tobacco use [...] as of this encounter (statuses as of 10/02/2024) Resolved Problems Problem Noted Date Diagnosed Date Resolved Date COPD, severe 01/16/2024 02/06/2024 Overview: Per COPD GOLD Classification Suspected sleep apnea 12/11/20232023 Acute kidney injury superimp osed on chronic kidney disease 12/08/2023 06/05/2024 Overview: Per CKD protocol Acute on chronic diastolic ( congestive) heart failure 12/06/2023 01/16/2024 Acute on chronic heart failu re with [...] Bacterial pneumonia 06/28/2022 01/16/20 Leukocytosis 06/28/2022 05/10/2023 Obesity hypoventilation syndrome 06/28/2022 01/16/2024 Kidney disease, chronic, sta ge III (GFR [...] Classification Hypoxia 12/26/2015 03/24/2019 Dyslipidemia 12/26/2015 01/16/2024 SOB (shortness of breath) 12/26/2015 RUQ pain 12/27/2014 12/06/2023 VITAMIN D DEFICIENCY [...] as of this encounter (statuses as of 10/02/2024) Immunizations Name Administration Dates Next Due Covid-19 Ad26, Single Dose ([place]/J&J) 021 Hepatitis B, 20+ yrs 12/08/2014,03/31/2011,02/23 Pneumococcal Conjugate Vacci ne, 20-valent ([id number]) 06/06/2023 Pneumococcal Polysaccharide PPV23 (Pneumovax) 02/10/2011 Seasonal [...] have concerns for your saf ety? No 05/01/2024 Do you have concerns for you r family's safety? (Household - for ages 0-17 years) Not on file 05/01/2024 Utilities Answer Date Recorded Do you have trouble paying y our heating, water, or electric bill? No 05/01/2024 Is your family able to pay t he heat, water, or electric bill? (Household - for ages 0-17 years) Not on file 05/01/2024 Does your family have access to good internet? (Household - for ages 0-17 years) Not on file 05/01/2024 Employment Status Answer Date Recorded Are you [...] to medical visits or work? Never True 01/22/2024 Does your family have a hard time getting a ride to doctors visits? (Household - for ages 0-17 years) Not on file 01/22/2024 Has lack of transportation k ept you from medical appointments, meetings, work, or from getting things needed for daily living? Check all that apply. (Adult - for ages 18 years and over) Not on file 01/22/2024 Do you (or your family) have trouble finding or paying for a ride (transportation)? (Household - for ages 0-17 years) Not on file 01/22/2024 Housing Stability Answer Date Recorded Do you currently live in a s helter or have no steady place to sleep at night? No 05/01/2024 READ ONLY Do you think you a re at risk of becoming homeless? Yes 05/01/2024 Does your family worry about paying for your home or becoming homeless? (Household - for ages 0-17 years) Not on file 0 05/01/2024 Are you homeless or worried that you might be in the future? No 05/01/2024 Are you (or your family) lionel eless or worried that you might be in the future? (Household - for ages 0-17 years) Not on file Food Insecurity Answer Date Recorded Do you need food for this week? No 05/01/2024 Are you able to get enough f ood for your family? (Household - for ages 0-17 years) Not on file 05/01/2024 Does your family need food t his week? (Household - for ages 0-17 years) Not on file 05/01/2024 Do you always have enough fo od for your family? (Household - for ages 0-17 years) Not on file 05/01/2024 Comments No Sex and Gender Information Value [...] encounter Miscellaneous Notes * Telephone Encounter - Aminah Cazares RN - 10/02/2024 9:08 AM EST Received call from nurse at [facility]. States they need orders for a 4 layer wrap as opposed to coban 2 that they do not have on their formulary. Orders placed. Nurse also states that the patient has scabies and wanted to let us now. documented in this encounter Plan of Treatment Upcoming Encounters Date Type Department Care Team (Late st Contact Info) Description 10/13/2024 3:30 PM EST Office [facility], Kymberly Zhang [address] [facility] [place] [phone] Johanny Hutton CRNP [address] [place] [address] 10/14/2024 2:00 PM EST Office Visit Wound Care Angie Teran [address] [address] Paul Peng, [address] [address] 10/28/2024 1:30 PM EST Office Visit Ophthalmology [facility] [address] [place] [address] Washington Gordon MD [address] [place] [address] 12/15/2024 4:20 PM EDT Office Visit Nephrology [facility] [address] [facility] [place] [phone] Elie Dixon MD [address] [facility] [place] [address] 12/23/2024 10:30 AM EDT Office Visit Ophthalmology [facility] [address] [place] [address] Archana Nava MD [address] [place] [address] 12/24/2024 10:30 AM EDT Office Visit Cardiology [facility] [address] [facility] [place] [address] Angela Briggs CRNP [address] [place] [facility] [place] [address] 01/22/2025 1:15 PM EDT Imaging Radiology [facility] [address] [place] [address] Health Maintenance Due Date Last Done Comments [...] 06/06/2023, 0 12/17/2020, 01/02/2017, Additional history exists HbA1c 11/01/2024 05/01/2024, 08/0 09/2023, 12/26/2023, Additional history exists GFR 11/24/2024 05/27/2024, 08/2 03/2024, 05/19/2024, Additional history exists Depression Monitoring 12/19/2024 12/20/2023 Diabetic Eye Exam 06/04/2025 06/04/2024, , 06/04/2024, Additional history exists O2 ASSESSMENT COMPLETED IN PAST YEAR FOR COPD 09/30/2025 09/30/2024 Lipid Panel 04/24/2029 04/24/2024, 08/0 09/2023, 12/26/2023, [...] this encounter Medical Devices Implanted Type Area Corporate Intern Device Identifier Shelf Expiration Date Model / Serial / Lot Cath Drainage 10fr [employer]-[id number] - [id number] Implanted:Qty : 1 on 05/07/2023 at [facility] Right: Abdomen [employer] [facility] [id number] 02/15/2026 [facility]-10-03 8 / / [id number] documented as of this encounter Additional Health Concerns Infection Onset Date Last Indicated Resolved Time Varicella zoster 06/02/2024 06/02/2024 documented as of this encounter Advance Directives * Full Code (Latest Code Status on File) Date Activated Date Inactivated Comments 04/30/2024 9:47 [...] Full Code Date Activated Date Inactivated Comments 03/06/2023 5:53 AM 03/20/2023 4:26 PM This order r eflects the patients wishes and were consensually agreed upon. Question Answer Comments Discussion of Advance Directives occurred with: Patient Care Teams Dope House Operator Helper Relationship Specialty Start Date End Date Denis Urbina MD [address] [place] [address] PCP - General Family Medicine 04/17/22 documented as of this encounter
--- OUTSIDE RECORDS SUMMARY | 2025-01-09 05:36 | External Medical Summary ---
Author Name Unknown Address Unknown Organization K2I:LABORATORY [address] [place] [address] Laboratory Report Ordering Provider Test Date Status NICK SNIDER 10/03/2024 12:08:54 Final Observation Date Value Abnormality Reference (Units ) Status Methicillin resistant Staphylococcus aureus (MRSA) DNA [Presence] in Nose by DUGLAS with probe detection 10/03/2024 12:08:54 Negative Negative Final No Methicillin resistant Sta phylococcus aureus detected by PCR (amplified probe). Performing Location LABORATORY [address] [place] [address]
--- OUTSIDE RECORDS SUMMARY | 2025-01-09 05:36 | External Medical Summary | Summary of Care ---
Author Name Unknown Organization [facility] Address [address] [place] [address] Phone [phone] Care Team Providers Care Cafeteria Attendant Name Role Phone Denis Urbina MD Primary Care Provider + [phone] Reason for Visit * Reason Comments Rash everywhere Encounter Details Date Type Department Care Team (Late st Contact Info) Description 09/30/2024 12:50 PM EST Convenient Care Visit [facility] [address] [place] [address] Poornima Self PA-C [address], [place] [id number] Scabies* Allergies No known active allergiesdocumented as of this encounter (statuses as of 09/30/2024) Medications Albuterol Sulfate (2.5 MG/3ML) 0.083% Inhalation [...] 06/27/20 22 Active FreeStyle Maria Luz 2 [place] Device Use as directed . 1 Each 06/27/20 22 Active BD Insulin Syringe U/F 30G X 1/2" 0.3 ML (Insulin Syringe-Needle U-100)Indications: Type 2 diabetes mellitus without complication (HCC),Type 2 diabetes mellitus without complication, with long-term current use of insulin (HCC) INJECT UNDER THE SKIN 4 TIMES A DAY 100 Each 2 06/06/20 23 Active Droplet Pen [place] 31G X 5 MM (Insulin Pen Needle)Indications :Type 2 diabetes mellitus without complication, with long-term current use of insulin (HCC) inject subcutaneously four times a day 1000 Each 06/07/20 23 Active OneTouch UltraSoft LancetsIndications :Type 2 diabetes mellitus without complication, unspecified whether nursing home insulin use (HCC) Use as directed [...] DAILY 90 Tablet 1 06/04/20 24 Active Escitalopram Oxalate 10 MG [...] evening meals. 180 Tablet 06/04/20 24 Active amLODIPine Besylate 5 MG Oral Tablet (Norvasc) Take 1 Tablet by mouth in the morning. 90 Tablet 06/04/20 24 Active Vitamin B-12 1000 MCG Oral Tablet (Cyanocobalamin) PLACE 1,000MCG UNDER THE TONGUE DAILY 90 Tablet 06/06/20 24 Active Ondansetron 4 MG Oral Tablet Disintegrating (Zofran)Indication s:Nausea Place 1 Tablet on tongue every 8 hours as needed for Nausea. dissolve on tongue. 30 Tablet 1 09/16/20 24 Active Multivitamin Adult Oral Tablet Take [...] package directions 21 Tablet 09/30/19 25 Active Permethrin 5 % External Cream (Elimite) Apply topically to affected area once for 1 dose. Apply from top of neck to toes all over, wash off after 12 hours 60 g 09/30/19 25 025 Active Ketoconazole 2 % External Shampoo (Nizoral) [...] IZ PRN 04/17/2024 04/17/2025 Active lidocaine-epinephrine 2 %-1:321626 inj 6 mgIndications:Moderate nonproliferative diabetic retinopathy of both eyes with macular edema associated with type 2 diabetes mellitus (HCC),Optic nerve drusen, left,6th nerve palsy, right,Combined forms of age-related cataract of both eyes 6 mg IJ PRN 04/17/2024 04/17/2025 Active documented as of this encounter (statuses as of 09/30/2024) Active Problems Problem Noted Date Diagnosed Date [...] as of this encounter (statuses as of 09/30/2024) Resolved Problems Problem Noted Date Diagnosed Date [...] as of this encounter (statuses as of 09/30/2024) Immunizations Name Administration Dates Next Due Covid-19 Ad26, Single Dose ([place]/J&J) 021 Hepatitis B, 20+ yrs 12/08/2014,03/31/2011,02/23 Pneumococcal Conjugate Vacci ne, 20-valent ([id number]) 06/06/2023 Pneumococcal Polysaccharide PPV23 (Pneumovax) 02/10/2011 Seasonal [...] Sign Reading Time Taken Comments Blood Pressure 154/58 09/30/2024 1:30 PM EST Pulse 70 09/30/2024 1:30 PM EST Temperature 36.6 °C (97.9 °F) 09/30/2024 1:30 PM ES T Respiratory Rate 18 09/30/2024 1:30 PM EST Oxygen Saturation 90% 09/30/2024 1:30 PM EST Inhaled Oxygen Concentration - - Weight - [...] Oswaldo Dill RN documented in this encounter Progress Notes * Poornima Self PA-C - 09/30/2024 1:57 PM EST Subjective Meera Mcgraw is a 69 year old female that presents for Rash (everywhere) Patient is a 69 y/o female presenting today for rash everywhere X 1 week. Patient reports itchy rash all over body. Also reports dry itchy flaky scalp as well. No known exposures. No other complaintsat this time. Objective BP 154/58 | Pulse 70 | Temp 36.6 °C (97.9 °F) (Tympanic) | Resp 18 | LMP 11/29/2010 | SpO2 90% There is no height or weight on file to calculate BMI. BP Readings from Last 3 Encounters: 09/30/24 154/58 09/23/24 123/75 09/09/24 136/63 Wt Readings from Last 3 Encounters: 06/17/24 113.9 kg (251 lb) 06/09/24 115 kg (253 lb 9 oz) 06/04/24 115.7 kg (255 lb) Physical Exam Constitutional: General: She is not in acute distress. Cardiovascular: Rate and Rhythm: Normal rate. Pulmonary: Effort: Pulmonary effort is normal. Skin: Comments: Small erythematous papules noted about the back, chest, abdomen and arms. Some scattered,some linear. Excoriations noted as well. Neurological: General: No focal deficit present. Mental Status: She is alert and oriented to person, place, and time. Assessment and plan Scabies (Primary) Other orders - methylPREDNISolone 4 MG Oral Tablet Therapy Pack (Medrol Dosepack); follow package directions - Permethrin 5 % External Cream (Elimite); Apply topically to affected area once for 1 dose. Apply from top of neck to toes all over, wash off after 12 hours - Ketoconazole 2 % External Shampoo (Nizoral); Apply topically to affected area every 3 days for 28days. Shampoo twice a week Medications sent to pharmacy Follow up as needed Total time today including reviewing chart before the visit, pertinent labs, imaging reports, face to face time, and documentation time was 20 minutes. The above was discussed and understanding was expressed. Poornima Self PA-C documented in this encounter Nursing Notes * Linda Rea LPN - 09/30/2024 1:31 PM EST Meera Mcgraw 1955 verbalized for verification. Patient is accompanied by son for today's visit. Meera Mcgraw is a 69 year old female who presents today for Chief Complaint Patient presents with Rash everywhere . Symptoms began: x 1 weeks Home treatments tried : NA Sick contacts include :NA documented in this encounter Plan of Treatment Upcoming Encounters Date Type Department Care Team (Late st Contact Info) Description 10/13/2024 3:30 PM EST Office Visit Pulmonary Medicine [facility] MIRANDA [address] [facility] [place] [address] Johanny Hutton CRNP [address] [place] [address] 10/14/2024 2:00 PM EST Office Visit Wound Care Angie Teran [address] [place] [address] Paul Peng, DO [address] [place] [address] 10/28/2024 1:30 PM EST Office Visit Ophthalmology [facility] [address] [place] [address] [place] Gordon MD [address] [place] [address] 12/15/2024 4:20 PM EDT [facility] [address] [facility] [place] [address] Elie Dixon MD [address] [facility] [place] [address] 12/23/2024 10:30 AM EDT Office Visit Ophthalmology [facility] [address] [place] [address] Archana Nava MD [address] [place] [address] 12/24/2024 10:30 AM EDT [facility] [address] [facility] [place] [address] Angela Briggs CRNP [address] [facility] [place] [address] 01/22/2025 1:15 PM EDT Imaging Radiology [facility] [address] [place] [address] Health Maintenance Due Date Last Done Comments [...] ASSESSMENT COMPLETED IN PAST YEAR FOR COPD 07/25/2025 07/25/2024 Lipid Panel 04/24/2029 04/24/2024, 08/0 09/2023, 12/26/2023, [...] this encounter Medical Devices Implanted Type Area Billing Manager Device Identifier Shelf Expiration Date Model / Serial / Lot Cath Drainage 10fr [facility]-10-038 - [id number] Implanted:Qty : 1 on 05/07/2023 at [facility] Right: Abdomen [employer] [id number] 02/15/2026 [facility]-10-03 8 / / [id number] documented as of this encounter Visit Diagnoses Diagnosis Scabies- Primary documented in this encounter Additional Health Concerns [...] Advance Directives occurred with: Patient Care Teams Cafeteria Attendant Relationship Specialty Start Date End Date Denis Urbina MD [address] [place] [address] PCP - General Family Medicine 04/17/22 documented as of this encounter
--- OUTSIDE RECORDS SUMMARY | 2025-01-09 05:36 | External Medical Summary ---
Author Name Unknown Address Unknown Organization [facility] [address] [place] [address] Laboratory Report Ordering Provider Test Date Status NICK SNIDER 10/03/2024 04:48:00 Final Observation Date Value Abnormality Reference (Units ) Status BUN 10/03/2024 04:48:00 38 Above high normal 6-20 (mg/dL) Final Creatinine 10/03/2024 04:48:00 1.5 Above high normal 0.5-1.0 (mg/dL) Final Glomerular filtration rate/1.73 sq M.predicted [Volume Rate/Area] in Serum, Plasma or Blood by Creatinine-based formula (CKD-EPI) 10/03/2024 04:48:00 39 Below low normal >=60 (mL/min) Final eGFR is calculated based on the CKD-EPI 2020 equation. Sodium 10/03/2024 04:48:00 137 135-146 (m mol/L) Final Potassium 10/03/2024 04:48:00 5.2 Above high normal 3. 5-5.1 (mmol/L) Final Cl 10/03/2024 04:48:00 101 98-107 (mm ol/L) Final CO2 10/03/2024 04:48:00 27 22-32 (mmo l/L) Final Anion gap 10/03/2024 04:48:00 9 7-15 (mmol /L) Final Glucose 10/03/2024 04:48:00 237 Above high normal 70 -120 (mg/dL) Final Calcium 10/03/2024 04:48:00 8.5 8.4-10.2 ( mg/dL) Final Performing Location LABORATORY [address] Wilner [place] [address]
--- OUTSIDE RECORDS SUMMARY | 2025-01-09 05:36 | External Medical Summary ---
Author Name Unknown Address Unknown Organization [facility] [address] Wilner [place] [address] Laboratory Report Ordering Provider Test Date Status JONH ROSE 10/02/2024 19:49:00 Final Observation Date Value Abnormality Reference (Units ) Status WBC, Total 10/02/2024 19:49:00 10.47 4.00-10.80 (K/uL) Final RBC 10/02/2024 19:49:00 4.45 3.85-5.15 (M/uL) Final Hemoglobin 10/02/2024 19:49:00 11.9 Below low normal 12.0-15.3 (g/dL) Final HCT 10/02/2024 19:49:00 40.0 36.0-45.2 (%) Final MCV 10/02/2024 19:49:00 89.9 81.5-97.5 (fL) Final MCH 10/02/2024 19:49:00 26.7 27.0-34.0 (pg) Final MCHC 10/02/2024 19:49:00 29.8 32.0-36.0 (g/dL) Final RDW 10/02/2024 19:49:00 14.6 11.5-15.5 (%) Final Platelets 10/02/2024 19:49:00 210 140-400 (K/uL) Final MPV 10/02/2024 19:49:00 8.9 6.6-11.1 (fL) Final Nucleated erythrocytes/100 leukocytes [Ratio] in Blood by Automated count 10/02/2024 19:49:00 0 <=0 (/100 WBCs) Final Performing Location LABORATORY [address] [place] [address]
--- OUTSIDE RECORDS SUMMARY | 2025-01-09 05:36 | External Medical Summary ---
Author Name Unknown Address Unknown Organization [facility] - [address] [place] [address] Dr. Wilner [place] [address] Laboratory Report Ordering Provider Test Date Status JONH ROSE 10/02/2024 21:55:00 Final Observation Date Value Abnormality Reference (Units ) Status Troponin T 10/02/2024 21:55:00 72 Above high normal < =14 (ng/L) Final Performing Location LABORATORY [address] [place] [address]
--- OUTSIDE RECORDS SUMMARY | 2025-01-09 05:36 | External Medical Summary ---
Author Name Unknown Address Unknown Organization [facility] - [address] [place] [address] Dr. Wil[place] [address] Laboratory Report Ordering Provider Test Date Status NICK SNIDER 10/03/2024 04:48:00 Final Observation Date Value Abnormality Reference (Units ) Status Phosphate 10/03/2024 04:48:00 4.6 2.5-4.8 (m g/dL) Final Performing Location [facility] - [address] [place] [address] Dr. Wilner [place] [address]
--- OUTSIDE RECORDS SUMMARY | 2025-01-09 05:36 | External Medical Summary ---
Author Name Unknown Address Unknown Organization [facility] [address] [place] [address] Laboratory Report Ordering Provider Test Date Status NICK SNIDER 10/03/2024 04:48:00 Final Observation Date Value Abnormality Reference (Units ) Status Magnesium 10/03/2024 04:48:00 1.9 1.5-2.6 (m g/dL) Final Performing Location LABORATORY [address] [place] [address]
--- OUTSIDE RECORDS SUMMARY | 2025-01-09 05:36 | External Medical Summary ---
Author Name Unknown Address Unknown Organization [facility] [address] [place] [address] Laboratory Report Ordering Provider Test Date Status JONH ROSE 10/02/2024 19:49:00 Final Exclude Heart Failure: <300 pg/mL
Diagnose Heart Failure:
Age <50 yr: >450 pg/mL
50-75 yr: >900 pg/mL
>75 yr: >1800 pg/mL
GFR is 30-59 mL/min: >1200 pg/mL or Age- adjusted values
GFR <30 mL/min: do not use, not reliable

Prognostic threshold: 1000 pg/mL Observation Date Value Abnormality Reference (Units ) Status BNP, Pro-hormone 10/02/2024 19:49:00 5502 Above high no rmal <300 (pg/mL) Final Performing Location LABORATORY [address] [place] [address]
--- OUTSIDE RECORDS SUMMARY | 2025-01-09 05:36 | External Medical Summary ---
Author Name Unknown Address Unknown Organization : Laboratory Report Ordering Provider Test Date Status CLARITZA KENNEDY 10/03/2024 21:15:59 Final Observation Date Value Abnormality Reference (Units ) Status Glucose Point of Care 10/03/2024 21:15:59 151 Above high normal 70-120 (mg/dL) Final Performing Location
--- OUTSIDE RECORDS SUMMARY | 2025-01-09 05:36 | External Medical Summary ---
Author Name Unknown Address Unknown Organization [facility] [address] [place] [address] Laboratory Report Ordering Provider Test Date Status NICK SNIDER 10/03/2024 04:48:00 Final Observation Date Value Abnormality Reference (Units ) Status WBC, Total 10/03/2024 04:48:00 11.44 Above high normal 4.00-10.80 (K/uL) Final RBC 10/03/2024 04:48:00 4.39 3.85-5.15 (M/uL) Final Hemoglobin 10/03/2024 04:48:00 11.8 Below low normal 12.0-15.3 (g/dL) Final HCT 10/03/2024 04:48:00 40.4 36.0-45.2 (%) Final MCV 10/03/2024 04:48:00 92.0 81.5-97.5 (fL) Final MCH 10/03/2024 04:48:00 26.9 27.0-34.0 (pg) Final MCHC 10/03/2024 04:48:00 29.2 32.0-36.0 (g/dL) Final RDW 10/03/2024 04:48:00 14.5 11.5-15.5 (%) Final Platelets 10/03/2024 04:48:00 214 140-400 (K/uL) Final MPV 10/03/2024 04:48:00 8.9 6.6-11.1 (fL) Final Nucleated erythrocytes/100 leukocytes [Ratio] in Blood by Automated count 10/03/2024 04:48:00 0 <=0 (/100 WBCs) Final Performing Location LABORATORY [address] [place] [address]
--- OUTSIDE RECORDS SUMMARY | 2025-01-09 05:36 | External Medical Summary ---
Author Name Unknown Address Unknown Organization : Laboratory Report Ordering Provider Test Date Status CLARITZA KENNEDY 10/03/2024 08:35:05 Final Observation Date Value Abnormality Reference (Units ) Status Glucose Point of Care 10/03/2024 08:35:05 149 Above high normal 70-120 (mg/dL) Final Performing Location
--- OUTSIDE RECORDS SUMMARY | 2025-01-09 05:36 | External Medical Summary ---
Author Name Unknown Address Unknown Organization : Laboratory Report Ordering Provider Test Date Status CLARITZA KENNEDY 10/03/2024 12:01:46 Final Observation Date Value Abnormality Reference (Units ) Status Glucose Point of Care 10/03/2024 12:01:46 197 Above high normal 70-120 (mg/dL) Final Performing Location
--- OUTSIDE RECORDS SUMMARY | 2025-01-09 05:36 | External Medical Summary ---
Author Name Unknown Address Unknown Organization [facility] [address] [place] [address] Laboratory Report Ordering Provider Test Date Status JONH ROSE 10/02/2024 19:49:00 Final Observation Date Value Abnormality Reference (Units ) Status Lipase 10/02/2024 19:49:00 38 13-60 (U/L ) Final Performing Location LABORATORY [address] [place] [address]
--- OUTSIDE RECORDS SUMMARY | 2025-01-09 05:36 | External Medical Summary | Summary of Care ---
Author Name Unknown Organization [facility] Address [address] [place] [address] Phone [phone] Care Team Providers Care Bus Driver Supervisor Name Role Phone Denis Urbina MD Primary Care Provider + [phone] Encounter Details Date Type Department Care Team (Late st Contact Info) Description 10/02/2024 Orders Only Wound Care Angie Teran [address] [place] [address] Indu Bearden CRNP [address] [place] [address] Venous stasis ulcers of both lower extremities (HCC)* Allergies No known active allergiesdocumented as [...] 06/27/20 22 Active FreeStyle Maria Luz 2 [place] Device Use as directed . 1 Each 06/27/20 22 Active BD Insulin Syringe U/F 30G X 1/2" 0.3 ML (Insulin Syringe-Needle U-100)Indications: Type 2 diabetes mellitus without complication (HCC),Type 2 diabetes mellitus without complication, with long-term current use of insulin (HCC) INJECT UNDER THE SKIN 4 TIMES A DAY 100 Each 2 06/06/20 23 Active Droplet Pen [place] 31G X 5 MM (Insulin Pen Needle)Indications :Type 2 diabetes mellitus without complication, with long-term current use of insulin (HCC) inject subcutaneously four times a day 1000 Each 06/07/20 23 Active OneTouch UltraSoft LancetsIndications :Type 2 diabetes mellitus without complication, unspecified whether snf insulin use (HCC) Use as directed 4 [...] IZ PRN 04/17/2024 04/17/2025 Active lidocaine-epinephrine 2 %-1:426950 inj 6 mgIndications:Moderate nonproliferative diabetic retinopathy of [...] yrs 12/08/2014,03/31/2011,02/23 Pneumococcal Conjugate Vacci ne, 20-valent ([id number]) 06/06/2023 Pneumococcal Polysaccharide PPV23 (Pneumovax) 02/10/2011 Seasonal [...] Oswaldo Glover RN documented in this encounter Plan of Treatment Upcoming Encounters Date Type Department Care Team (Late st Contact Info) Description 10/13/2024 3:30 PM EST Office Visit Pulmonary Medicine [facility] MIRANDA [address] [place] [address] Johanny Hutton CRNP [address] [place] [address] 10/14/2024 2:00 PM EST Office Visit Wound Care Angie Teran [address] [place] [address] Paul Peng, [address] [place] [address] 10/28/2024 1:30 PM EST Office Visit Ophthalmology [address] [address] [place] Gordon MD [address] [place] [address] 12/15/2024 4:20 PM EDT Office Visit Nephrology [facility] [place] MIRANDA [address] [place] [address] Elie Dixon MD [address] [place] [address] 12/23/2024 10:30 AM EDT Office Visit Ophthalmology [address] [address] Archana Nava MD [address] [place] [address] 12/24/2024 10:30 AM EDT Office Visit Cardiology [facility] [address] [place] [address] Angela Briggs CRNP [address] [place] [address] 01/22/2025 1:15 PM EDT Imaging Radiology [facility] [address] [place], [place] [id number] Health Maintenance Due Date Last Done Comments [...] this encounter Medical Devices Implanted Type Area Millstone Cleaner Device Identifier Shelf Expiration Date Model / Serial / Lot Cath Drainage 10fr [facility]-10-038 - [id number] Implanted:Qty : 1 on 05/07/2023 at [facility] Right: Abdomen [employer] [id number] 02/15/2026 [facility]-10-03 8 / / [id number] documented as of this encounter Visit Diagnoses Diagnosis Venous stasis ulcers of both lower extremities (HCC)- Primary documented in this encounter Additional Health [...] Advance Directives occurred with: Patient Care Teams Bus Driver Supervisor Relationship Specialty Start Date End Date Denis Urbina MD [address] [place] [address] PCP - General Family Medicine 04/17/22 documented as of this encounter
--- OUTSIDE RECORDS SUMMARY | 2025-01-09 05:36 | External Medical Summary ---
Author Name Unknown Address Unknown Organization [facility] - [address] [place] [address] Laboratory Report Ordering Provider Test Date Status ROSEJONH 10/02/2024 19:49:00 Final Observation Date Value Abnormality Reference (Units ) Status SYNC LEUKOCYTES IN BLOOD BY AUTOMATED COUNT 10/02/2024 19:49:00 10.47 4.00-10.80 (K/uL) Final Segs 10/02/2024 19:49:00 85.7 Above high normal 40.0-75.0 (%) Final Lymphs % 10/02/2024 19:49:00 5.8 Below low normal 18.0-42.0 (%) Final Monos 10/02/2024 19:49:00 5.6 1.0-11.0 (%) Final Eosinophils 10/02/2024 19:49:00 1.5 0.0-6.0 (%) Final Basos 10/02/2024 19:49:00 0.6 0.0-2.0 (%) Final Immature Granulocyte, Percent 10/02/2024 19:49:00 0.8 0.0-2.0 (%) Final Absolute Segs 10/02/2024 19:49:00 8.97 Above high normal 1.80-7.70 (K/uL) Final Lymphs, absolute 10/02/2024 19:49:00 0.61 Below low normal 1.00-4.80 (K/ul) Final Monos, Abs 10/02/2024 19:49:00 0.59 0.00-1.10 (K/uL) Final Eos, Abs 10/02/2024 19:49:00 0.16 0.00-0.70 (K/uL) Final Basos, Abs 10/02/2024 19:49:00 0.06 0.00-0.20 (K/uL) Final Immature Granulocytes, Number 10/02/2024 19:49:00 0.08 0.00-0.20 (K/uL) Final Performing Location LAB[facility]ORY [facility] - [address] [place] [address] Dr. Wilner [place] [address]
--- OUTSIDE RECORDS SUMMARY | 2025-01-09 05:36 | External Medical Summary ---
Author Name Unknown Address Unknown Organization : Laboratory Report Ordering Provider Test Date Status CLARITZA KENNEDY 10/03/2024 18:03:35 Final Observation Date Value Abnormality Reference (Units ) Status Glucose Point of Care 10/03/2024 18:03:35 163 Above high normal 70-120 (mg/dL) Final Performing Location
--- OUTSIDE RECORDS SUMMARY | 2025-01-09 05:36 | External Medical Summary ---
Author Name Unknown Address Unknown Organization : Laboratory Report Ordering Provider Test Date Status JEREMIE STILES 10/03/2024 00:07:38 Final Observation Date Value Abnormality Reference (Units ) Status Glucose Point of Care 10/03/2024 00:07:38 229 Above high normal 70-120 (mg/dL) Final Performing Location
--- OUTSIDE RECORDS SUMMARY | 2025-01-09 05:36 | External Medical Summary ---
Author Name Unknown Address Unknown Organization [facility] [address] [place] [address] Laboratory Report Ordering Provider Test Date Status NICK SNIDER 10/03/2024 04:48:00 Final Observation Date Value Abnormality Reference (Units ) Status HbA1C 10/03/2024 04:48:00 8.2 Above high normal 4. 0-5.6 (%) Final The use of HbA1c to monitor glycemic status is based on normal hemoglobin and HbA composition. This test should not be used in patients with abnormal hemoglobin that affects the half life of the red blood cell or the in vivo glycation rates. Glucose, estimated average 10/03/2024 04:48:00 189 Above high normal <126 (mg/dL) Adrian davis Performing Location LABORATORY [address] [place]ner [place] [address]
--- OUTSIDE RECORDS SUMMARY | 2025-01-09 05:36 | External Medical Summary ---
Author Name Unknown Address Unknown Organization [facility] - [address] [place] [address] Laboratory Report Ordering Provider Test Date Status JONH ROSE 10/03/2024 04:06:48 Final Observation Date Value Abnormality Reference (Units ) Status Color of Urine by Auto 10/03/2024 04:06:48 Light Yellow Colorless, Light Yellow, Yellow, Dark Yellow Final Clarity, Urine 10/03/2024 04:06:48 Slightly Cloudy Abnormal Clear Final Glucose [Mass/volume] in Urine by Automated test strip 10/03/2024 04:06:48 250 Abnormal Negative (mg/dL) Final Bilirubin.total [Presence] in Urine by Automated test strip 10/03/2024 04:06:48 Negative Negative Final Ketones [Mass/volume] in Urine by Automated test strip 10/03/2024 04:06:48 Negative Negative (mg/dL) Final Specific gravity, Urine 10/03/2024 04:06:48 1.012 1.003-1.030 Final Hemoglobin [Presence] in Urine by Automated test strip 10/03/2024 04:06:48 Negative Negative Final pH, Urine 10/03/2024 04:06:48 5.5 5.0-7.5 (Units) Final Protein [Mass/volume] in Urine by Automated test strip 10/03/2024 04:06:48 Trace Abnormal Negative (mg/dL) Final Urobilinogen [Mass/volume] in Urine by Automated test strip 10/03/2024 04:06:48 Normal Normal (mg/dL) Final Nitrite [Presence] in Urine by Automated test strip 10/03/2024 04:06:48 Negative Negative Final Leukocyte esterase [Presence] in Urine by Automated test strip 10/03/2024 04:06:48 Large Abnormal Negative Final RBC, Urine 10/03/2024 04:06:48 6-9 Abnormal 0-2 (/HPF) Final WBC, Urine 10/03/2024 04:06:48 30-49 Abnormal 0-2 (/HPF) Final Bacteria [#/area] in Urine sediment by Microscopy high power field 10/03/2024 04:06:48 0-25 0-25 (/HPF) Final Hyaline casts, Urine 10/03/2024 04:06:48 5-9 Abnormal None (/LPF) Final CULTURE, URINE - [facility] 10/03/2024 04:06:48 Final Quantitative urine culture t o be performed Performing Location LABORATORY [address] [place] [address]
--- OUTSIDE RECORDS SUMMARY | 2025-01-09 05:37 | External Medical Summary | Summary of Care ---
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 1 Each 06/27/20 22 Active BD Insulin Syringe U/F 30G X 1/2" 0.3 ML (Insulin Syringe-Needle U-100)Indications: Type 2 diabetes mellitus without complication (HCC),Type 2 diabetes mellitus without complication, with long-term current use of insulin (HCC) INJECT UNDER THE SKIN 4 TIMES A DAY 100 Each 2 06/06/20 23 Active Droplet Pen [place] 31G X 5 MM (Insulin Pen Needle)Indications [...] TONGUE DAILY 90 Tablet 06/04/20 24 Active Erythromycin 5 MG/GM Ophthalmic OintmentIndication s:Rash and nonspecific skin eruption Instill into eye 4 times a day. Apply to affected eye(s) until redness and discharge resolved. 1 g 06/04/20 24 Active Additional Information Patient not taking.Reported on 07/15/2024 Escitalopram Oxalate 10 MG Oral Tablet (Lexapro)Indicatio [...] UNDER THE TONGUE DAILY 90 Tablet 3 06/06/20 24 Active Ondansetron 4 MG Oral [...] as needed for Pain, Moderate. 15 Tablet 09/04/20 24 Active Hospital, Clinic, or Other Facility Administered [...] IZ PRN 04/17/2024 04/17/2025 Active lidocaine-epinephrine 2 %-1:384468 inj 6 mgIndications:Moderate nonproliferative diabetic retinopathy of both eyes with macular edema associated with type 2 diabetes mellitus (HCC),Optic nerve drusen, left,6th nerve palsy, right,Combined forms of age-related cataract of both eyes 6 mg IJ PRN 04/17/2024 04/17/2025 Active documented as of this encounter (statuses as of 09/10/2024) Active Problems Problem Noted Date Diagnosed Date Chronic kidney disease, stage 4 (severe) 024 [...] as of this encounter (statuses as of 09/10/2024) Resolved Problems Problem Noted Date Diagnosed Date [...] as of this encounter (statuses as of 09/10/2024) Immunizations Name Administration Dates Next Due Covid-19 Ad26, Single Dose (Alona/J&J) 021 Hepatitis B, 20+ yrs 12/08/2014,03/31/2011,02/23 Pneumococcal Conjugate Vacci ne, 20-valent ([id number]) 06/06/2023 Pneumococcal Polysaccharide PPV23 (Pneumovax) 02/10/2011 Seasonal [...] No 01/22/2024 Does the household have a [place] source of income? (Household - for ages [...] Sign Reading Time Taken Comments Blood Pressure 136/63 09/09/2024 3:27 PM EST Pulse 72 09/09/2024 3:27 PM EST Temperature 36.8 °C (98.3 °F) 09/09/2024 3:27 PM ES T Respiratory Rate 16 09/09/2024 3:27 PM EST Oxygen Saturation - - Inhaled Oxygen Concentration - - Weight - [...] in this encounter Progress Notes * Indu Bearden CRNP - 09/09/2024 3:44 PM EST Images from the original note were not included. WOUND OUTPATIENT FOLLOW-UP NOTE Meera Mcgraw 1955 HPI: Meera Mcgraw is being seen today for follow-up of bilateral lower extremity ulcers. We received call from home health yesterday notifying that they did not have coban 2 wraps yet. Multidex powder, optilock and unna boots were applied. Patient reports some burning pain at her ankles. Deniesfever, chills, N/V, and SOB. Current dressing: See Wound Assessment Dressing change frequency: 3 times/week RLE Compression: LLE Compression: RLE Wt Bearing Offloading: LLE Wt Bearing Offloading: RLE Non-Wt Bearing Offloading: LLE Non-Wt Bearing Offloading: Offloading Surface for Bed: Offloading Surface for Chair / Wheelchair: ROS: ROS was negative other than stated above. Tobacco History: Social History Tobacco Use Smoking Status Former Current packs/day: 0.00 Average packs/day: 0.1 packs/day for 3.0 years (0.4 ttl pk-yrs) Types: Cigarettes Start date: 03/08/2019 Quit date: 03/08/2022 Years since quittin.5 Smokeless Tobacco Never Tobacco Comments smoked in college also WOUND ASSESSMENT: Wound Grade/Stage/Type (if changed): Wound/Ulcer Etiology: Lymphedema and Venous Leg Ulcer Alteration in Skin Integrity Right;Anterior;Lower Leg (Active) Clinical Image 09/09/24 1523 Wound Length (cm) 15 cm 09/09/24 1524 Wound Width (cm) 8 cm 09/09/24 1524 Wound Depth (cm) 0.1 cm 09/09/24 1524 Undermining (cm) 0 09/09/24 1524 Sinus Tract (cm) 0 09/09/24 1524 Tunneling (cm) 0 09/09/24 1524 Ulcer Thickness Full 09/09/24 1524 Yellow Fibrinous Slough (%) 1-25% 09/09/24 1524 Granulation Tissue (%) 76-99% 09/09/24 1524 Granulation Tissue Color red 09/09/24 1524 Necrotic Tissue (%) none 09/09/24 1524 Necrotic Tissue Color Not Applicable 09/09/24 1524 Deep Supporting Structure Exposed None 09/09/24 1524 Odor (after cleansing wound) No 09/09/24 1524 Janell-Wound (Surrounding Skin) Erythematous 09/09/24 1524 Wound Surface Area (cm^2) 120 cm^2 09/09/24 1524 Wound Volume (cm^3) 12 cm^3 09/09/24 1524 Alteration in Skin Integrity Anterior;Left;Lower Leg (Active) Clinical Image 09/09/24 1523 Wound Length (cm) 9 cm 09/09/24 1526 Wound Width (cm) 0.2 cm 09/09/24 1526 Wound Depth (cm) 0.1 cm 09/09/24 1526 Undermining (cm) 0 09/09/24 1526 Sinus Tract (cm) 0 09/09/24 1526 Tunneling (cm) 0 09/09/24 1526 Ulcer Thickness Full 09/09/24 1526 Granulation Tissue (%) 76-99% 09/09/24 152 Granulation Tissue Color red 09/09/24 152 Necrotic Tissue (%) none 09/09/24 152 Necrotic Tissue Color Not Applicable 09/09/24 1526 Drainage serous, moderate 09/09/24 1526 Odor (after cleansing wound) No 09/09/24 1526 Janell-Wound (Surrounding Skin) Erythematous 09/09/24 1526 Wound Surface Area (cm^2) 1.8 cm^2 09/09/24 1526 Wound Volume (cm^3) 0.18 cm^3 09/09/24 1526 Redness has improved since previous visit; weeping has also seemed to decrease Wound/Ulcer Debridement No Debridement Performed ASSESSMENT: ICD-10-CM 1. Type 2 diabetes with skin ulcer of lower extremity ([facility]) E11.622 L97.909 2. Skin ulcer of multiple sites of lower extremity, unspecified laterality, limited to breakdown ofskin ([facility]) L97.901 PLAN: Apply multidex powder and optilock to open areas of bilateral lower legs, followed by coban 2 lite (two-layer wrap) for compression. Please wrap from toes to knee. Dressing changes three times per week. Call with any worsening symptoms, questions, or concerns. Follow-up in 3 weeks. AZEEM [facility]der[facility] Wound Care Angie Teran [address] [place] [address] documented in this encounter Nursing Notes * Aminah Cazares RN - 09/10/2024 7:42 AM EST [facility] WOUND POST-DEBRIDEMENT NURSE ASSESSMENT & TREATMENT Wound # Locations: ble Post-procedural Pain: 1 out of 10 (1 = no pain -- 10 = worst pain possible) Wound cleaned with nss Primary Dressing Applied: multidex powder Covered with: optilock Secured with: coban ble lite Negative Pressure Wound Therapy (NPWT): N/A Applied? N/A PATIENT/FAMILY EDUCATION Teaching Methods: Verbal Person(s) Taught: Patient Learning Readiness: Good - Alert, Interested, Motivated Response/Evaluation: Verbalizes Knowledge/Understanding Topics Taught: Dressing Changes Handouts Provided? No VISIT DISCHARGE INFORMATION Disposition/Discharge Condition: Stable Disposition/Discharge to: Home Left via: [facility] (LTC): not applicable Home Health Agency: Agency Name: [facility] Objectives: Remove Nonviable Tissue and Enhancement of Tissue Growth NARRATIVE COMMENTS Follow up in [facility] Goals: met Possible barriers to meeting goals: none Stability of the patient: Moderately stable - low risk of patient condition declining or worsening Summary regarding today's goals: Met: no sign of infection documented in this encounter Plan of Treatment Upcoming Encounters Date Type Department Care Team (Late st Contact Info) Description 09/30/2024 2:20 PM EST Office Visit Wound Care Angie Teran [address] [address] Indu Bearden CRNP [address] [address] 10/28/2024 1:30 PM EST Office Visit Ophthalmology [facility] [address] [place] [address] Washington Gordon MD [address] [place] [address] [place] [address] 12/15/2024 4:20 PM EDT Office Visit Nephrology [facility] Kymberly MIRANDA [address] [place] [address] Elie Dixon MD [address] [place] [address] 12/23/2024 10:30 AM EDT Office Visit Ophthalmology [facility] [address] [place] [address] Archana Nava MD [address] [place] [address] 12/24/2024 10:30 AM EDT Office Visit Cardiology [facility] [address] [place] [address] Angela Briggs CRNP [address] [place] [facility] [place] [address] 01/22/2025 1:15 PM EDT Imaging Radiology [facility] [address] [place] [address] Health Maintenance Due Date Last Done Comments [...] Vaccine Completed 12/08/2014, 03/31/2011, 02/23/2011 Pneumococcal Vaccine: 65+ Years Completed 06/06/2023, 02/10/2011 HPV (Gardasil) Vaccine Aged Out No lo nger eligible based on patient's age to complete this topic MENINGOCOCCAL (MENACTRA/MENVEO) Aged Out No longer eligible based on patient's age to complete this topic documented as of this encounter Medical Devices Implanted Type Area Clean Out Driller Helper Device Identifier Shelf Expiration Date Model / Serial / Lot Cath Drainage 10fr [employer]-10-038 - [id number] Implanted:Qty : 1 on 05/07/[address] [facility] Right: Abdomen [employer] [id number] 02/15/2026 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
--- OUTSIDE RECORDS SUMMARY | 2025-01-09 05:37 | External Medical Summary | Summary of Care ---
Author Name Unknown Organization [facility] Address [address] [facility] [address] Phone [phone] Care Team Providers Care Nuclear Equipment Operator Name Role Phone Denis Urbina MD Primary Care Provider + [phone] Reason for Visit * Reason Onset Date Comments Advice 09/29/2024 Encounter Details Date Type Department Care Team (Late st Contact Info) Description 09/29/2024 Telephone Wound Care Angie Teran [address] [address] Paul Peng, [address] [address] [address] Advice Allergies No known active allergiesdocumented as of this encounter (statuses as of 09/29/2024) Medications Albuterol Sulfate (2.5 MG/3ML) 0.083% Inhalation [...] 06/27/20 22 Active FreeStyle Maria Luz 2 [place] Device Use as directed . 1 Each 06/27/20 22 Active BD Insulin Syringe U/F 30G X 1/2" 0.3 ML (Insulin Syringe-Needle U-100)Indications: Type 2 diabetes mellitus without complication (HCC),Type 2 diabetes mellitus without complication, with long-term current use of insulin (HCC) INJECT UNDER THE SKIN 4 TIMES A DAY 100 Each 2 06/06/20 23 Active Droplet Pen [place] 31G X 5 MM (Insulin Pen Needle)Indications :Type 2 diabetes mellitus without complication, with long-term current use of insulin (HCC) inject subcutaneously four times a day 1000 Each 06/07/20 23 Active OneTouch UltraSoft LancetsIndications :Type 2 diabetes mellitus without complication, unspecified whether plastics engineer insulin use (HCC) Use as directed 4 [...] Pain, Moderate. 15 Tablet 09/23/20 24 Active Hospital, Clinic, or Other Facility [...] IZ PRN 04/17/2024 04/17/2025 Active lidocaine-epinephrine 2 %-1:066234 inj 6 mgIndications:Moderate nonproliferative diabetic retinopathy of both eyes with macular edema associated with type 2 diabetes mellitus (HCC),Optic nerve drusen, left,6th nerve palsy, right,Combined forms of age-related cataract of both eyes 6 mg IJ PRN 04/17/2024 04/17/2025 Active documented as of this encounter (statuses as of 09/29/2024) Active Problems Problem Noted Date Diagnosed Date [...] as of this encounter (statuses as of 09/29/2024) Resolved Problems Problem Noted Date Diagnosed Date [...] as of this encounter (statuses as of 09/29/2024) Immunizations Name Administration Dates Next Due Covid-19 Ad26, Single Dose (Alona/J&J) 021 Hepatitis B, 20+ yrs 12/08/2014,03/31/2011,02/23 Pneumococcal Conjugate Vacci ne, 20-valent ([id number]) 06/06/2023 Pneumococcal Polysaccharide PPV23 (Pneumovax) 02/10/2011 Seasonal [...] encounter Miscellaneous Notes * Telephone Encounter - Pinky Newby RN - 09/29/2024 11:59 AM EST Received a call from pt home health nurse. She said that pt is having "heavy" drainage and the "optilock isn't working". She said that starting today, optilock and coban 2 will not be available through their formulary. Same discussed with Dr. Peng. Ok to change dressing to multidex powder, abds,and profore. Nurse verbalized understanding of same. documented in this encounter Plan of Treatment Upcoming Encounters Date Type Department Care Team (Late st Contact Info) Description 09/29/2024 4:00 PM EST Office Visit Pulmonary Medicine [facility] Kymberly MIRANDA [address] [facility] [place] [address] Braxton Elizalde MD [address] [facility] [place] [address] 10/14/2024 2:00 PM EST Office Visit Wound Care Angie Teran [address] [place] [address] [address] Paul Peng, DO [address] [place] [address] [address] 10/28/2024 1:30 PM EST Office Visit Ophthalmology [facility] [address] [place] [address] Washington Gordon MD [address] [place] [address] 12/15/2024 4:20 PM EDT Office Visit Nephrology [facility] Kymberly MIRANDA [address] [facility] [place] [phone] Elie Dixon MD [address] [facility] [place] [address] 12/23/2024 10:30 AM EDT Office Visit Ophthalmology [facility] [address] [place] [address] Archana Nava MD [address] [place] [address] 12/24/2024 10:30 AM EDT Office Visit Cardiology [facility] [address] [facility] [place] [address] Angela Briggs CRNP [address] [facility] [place] [address] 01/22/2025 1:15 PM EDT Imaging Radiology [facility] [address] [place] [address] Health Maintenance Due Date Last Done Comments [...] 12/26/2023, Additional history exists GFR 11/24/2024 05/27/2024, /2 03/2024, 05/19/2024, Additional history exists Depression Monitoring [...] this encounter Medical Devices Implanted Type Area [employer] Team Member Device Identifier Shelf Expiration Date Model / Serial / Lot Cath Drainage 10fr [facility]-10-038 - [id number] Implanted:Qty : 1 on 05/07/2023 at [facility] Right: Abdomen [employer] [id number] 02/15/2026 [facility]-10-03 8 / / [id number] documented as of this encounter Additional Health [...] Advance Directives occurred with: Patient Care Teams Nuclear Equipment Operator Relationship Specialty Start Date End Date Denis Urbina MD [address] [place] [address] PCP - General Family Medicine 04/17/22 documented as of this encounter
--- OUTSIDE RECORDS SUMMARY | 2025-01-09 05:37 | External Medical Summary | Summary of Care ---
Author Name Unknown Organization [facility] Address [address] [facility] [address] Phone [phone] Care Team Providers Care General Accountant Name Role Phone Denis Urbina MD Primary Care Provider [phone] Reason for Visit * Reason Onset Date Comments Advice 09/16/2024 Encounter Details Date Type Department Care Team (Late st Contact Info) Description 09/16/2024 Telephone Wound Care Angie Teran [address] [place] [address] [phone] Indu Bearden CRNP [address] [place] [address] [address] Advice Allergies No known active allergiesdocumented as of this encounter (statuses as of 09/16/2024) Medications Albuterol Sulfate (2.5 MG/3ML) 0.083% Inhalation [...] 06/27/20 22 Active FreeStyle Maria Luz 2 [place] Device Use as directed . 1 Each 06/27/20 22 Active BD Insulin Syringe U/F 30G X 1/2" 0.3 ML (Insulin Syringe-Needle U-100)Indications: Type 2 diabetes mellitus without complication (HCC),Type 2 diabetes mellitus without complication, with long-term current use of insulin (HCC) INJECT UNDER THE SKIN 4 TIMES A DAY 100 Each 2 06/06/20 23 Active Droplet Pen [place] 31G X 5 MM (Insulin Pen Needle)Indications :Type 2 diabetes mellitus without complication, with long-term current use of insulin (HCC) inject subcutaneously four times a day 1000 Each 06/07/20 23 Active OneTouch UltraSoft LancetsIndications :Type 2 diabetes mellitus without complication, unspecified whether terminal carman insulin use (HCC) Use as directed 4 [...] DAILY 90 Tablet 1 06/04/20 24 Active Erythromycin 5 MG/GM Ophthalmic [...] evening. 90 Tablet 1 06/04/20 24 Active Vitamin D3 50 MCG (2000 UT) Oral CapsuleIndications :Vitamin D deficiency Take 1 Capsule by mouth in the morning. Every morning.. 90 Capsule 1 06/04/20 24 Active Torsemide 20 MG Oral [...] IZ PRN 04/17/2024 04/17/2025 Active lidocaine-epinephrine 2 %-1:188578 inj 6 mgIndications:Moderate nonproliferative diabetic retinopathy of both eyes with macular edema associated with type 2 diabetes mellitus (HCC),Optic nerve drusen, left,6th nerve palsy, right,Combined forms of age-related cataract of both eyes 6 mg IJ PRN 04/17/2024 04/17/2025 Active documented as of this encounter (statuses as of 09/16/2024) Active Problems Problem Noted Date Diagnosed Date [...] as of this encounter (statuses as of 09/16/2024) Resolved Problems Problem Noted Date Diagnosed Date [...] as of this encounter (statuses as of 09/16/2024) Immunizations Name Administration Dates Next Due Covid-19 Ad26, Single Dose (Alona/J&J) 021 Hepatitis B, 20+ yrs 12/08/2014,03/31/2011,02/23 Pneumococcal Conjugate Vacci ne, 20-valent ([id number]) 06/06/2023 Pneumococcal Polysaccharide PPV23 (Pneumovax) 02/10/2011 Seasonal [...] Author No 05/01/2024 5:23 PM EDT Oswaldo Glover, RN documented as of this encounter Mental Status * Because of a physical, mental, or emotional condition, do you have serious difficulty concentrating, remembering, or making decisions? (5 years old or older) Answer Entry Date Author No 05/01/2024 5:23 PM EDT Oswaldo Glover, RN documented in this encounter Miscellaneous Notes * Telephone Encounter - Geri Ramon RN - 09/16/2024 9:53 AM EST Home health nurse called to report patient's dressings were saturated when removed. Patient receives dressing changes three times a week. No signs of infection. Patient advised to make sooner appointment in wound care. documented in this encounter Plan of Treatment Upcoming Encounters Date Type Department Care Team (Late st Contact Info) Description 09/23/2024 11:20 AM EST Office Visit Wound Care Angie Teran [address] [place] [address] Paul Peng DO [address] [place] [address] 09/30/2024 2:20 PM EST Office Visit Wound Care Tonja Terann [address] [place] [address] Indu Bearden CRNP [address] [place] [address] 10/28/2024 1:30 PM EST Office Visit Ophthalmology [facility] [address] [place] [address] Washington Gordon MD [address] [place] [address] 12/15/2024 4:20 PM EDT Office Visit Nephrology [facility]ym[facility]ly [facility] [address] [place] [facility] [place] [address] Elie Dixon MD [address] [place] [address] 12/23/2024 10:30 AM EDT Office Visit Ophthalmology [facility] [address] [place] [address] Archana Nava MD [address] [place] [address] 12/24/2024 10:30 AM EDT Office Visit Cardiology [facility] [address] [facility] [place] [address] Angela Briggs CRNP [address] [place] [facility] [address] 01/22/2025 1:15 PM EDT Imaging Radiology [facility] [address] [place] [address] Health Maintenance Due Date Last Done Comments [...] this encounter Medical Devices Implanted Type Area Production Scheduler Device Identifier Shelf Expiration Date Model / Serial / Lot Cath Drainage 10fr [facility]-10-038 - [id number] Implanted:Qty : 1 on 05/07/2023 at [facility] Right: Abdomen [employer] [id number] 02/15/2026 [facility]-10-03 8 / / [id number] documented as of this encounter Additional Health [...] Advance Directives occurred with: Patient Care Teams General Accountant Relationship Specialty Start Date End Date Denis Urbina MD [address] [place] [address] PCP - General Family Medicine 04/17/22 documented as of this encounter
--- OUTSIDE RECORDS SUMMARY | 2025-01-09 05:37 | External Medical Summary | Summary of Care ---
Author Name Unknown Organization [facility] Address [address] [facility] [address] Phone [phone] Care Team Providers Care Travel Registered Nurse Icu Name Role Phone Denis Urbina MD Primary Care Provider + [phone] Reason for Visit * Reason Comments Follow Up Encounter Details Date Type Department Care Team (Late st Contact Info) Description 09/23/2024 11:20 AM EST Office Visit Wound Care Angie Teran [address] [place] [address] [address] Paul Peng, DO [address] [address] Venous stasis ulcers of both lower extremities (HCC)*; Sleep apnea, unspecified type; Chronic kidney disease, stage 4 (severe) ([facility]); Type 2 diabetes mellitus with diabetic polyneuropathy, with long-term current use of insulin ([facility]); HTN, goal below 140/90; Skin ulcer of multiple sites of lower extremity, unspecified laterality, limited to breakdown of skin (HCC) Allergies No known active allergiesdocumented as of this encounter (statuses as of 09/23/2024) Medications Albuterol Sulfate (2.5 MG/3ML) 0.083% Inhalation [...] 06/27/20 22 Active FreeStyle Maria Luz 2 [place] Device Use as directed . 1 Each 06/27/20 22 Active BD Insulin Syringe U/F 30G X 1/2" 0.3 ML (Insulin Syringe-Needle U-100)Indications :Type 2 diabetes mellitus without complication (HCC),Type 2 diabetes mellitus without complication, with long-term current use of insulin (HCC) INJECT UNDER THE SKIN 4 TIMES A DAY 100 Each 2 06/06/20 23 Active Droplet Pen [place] 31G X 5 MM (Insulin Pen Needle)Indication [...] at noon. 2 mL 06/04/20 24 Active Cyanocobalamin 1000 MCG Sublingual Tablet SublingualIndicat ions:B12 [...] 24 Active Pregabalin 25 MG Oral Capsule (Lyrica)Indicanestoro ns:Type 2 diabetes mellitus with diabetic polyneuropathy, with long-term current use of insulin ([facility]) Take 1 Capsule by mouth in the [...] Active Silver sulfADIAZINE 1 % External Cream (Silvadene)Indica tions:Wound of right lower extremity, initial encounter Apply topically to affected area daily. Apply to wound on RLE once daily with dressing changes. 85 g 1 07/25/20 24 Active Doxycycline Hyclate 100 MG Oral CapsuleIndication s:Type 2 diabetes with skin ulcer of lower [...] Pain, Moderate. 15 Tablet 09/23/20 24 Active Erythromycin 5 MG/GM Ophthalmic OintmentIndicatio ns:Rash and nonspecific skin eruption Instill into eye 4 times a day. Apply to affected eye(s) until redness and discharge resolved. 1 g 06/04/20 24 024 Disconti nued(Med ication List Clean Up) traMADol HCl 50 MG Oral Tablet (Ultram)Indicatio ns:Skin ulcer of multiple sites of lower extremity, unspecified laterality, limited to breakdown of skin (HCC) Take 1 Tablet by mouth every 8 hours as needed for Pain, Moderate. 15 Tablet 09/04/20 24 024 Disconti nued(Ref ill) Hospital, Clinic, or Other Facility Administered [...] IZ PRN 04/17/2024 04/17/2025 Active lidocaine-epinephrine 2 %-1:927558 inj 6 mgIndications:Moderate nonproliferative diabetic retinopathy of both eyes with macular edema associated with type 2 diabetes mellitus (HCC),Optic nerve drusen, left,6th nerve palsy, right,Combined forms of age-related cataract of both eyes 6 mg IJ PRN 04/17/2024 04/17/2025 Active documented as of this encounter (statuses as of 09/23/2024) Active Problems Problem Noted Date Diagnosed Date [...] as of this encounter (statuses as of 09/23/2024) Resolved Problems Problem Noted Date Diagnosed Date [...] with ulcer 05/05/2022 06/29/2023 Diabetic retinopathy of rig t eye associated with type 2 diabetes [...] as of this encounter (statuses as of 09/23/2024) Immunizations Name Administration Dates Next Due Covid-19 Ad26, Single Dose ([place]/J&J) 021 Hepatitis B, 20+ yrs 12/08/2014,03/31/2011,02/23 Pneumococcal Conjugate Vacci ne, 20-valent ([id number]) 06/06/2023 Pneumococcal Polysaccharide PPV23 (Pneumovax) 02/10/2011 Seasonal [...] Sign Reading Time Taken Comments Blood Pressure 123/75 09/23/2024 11:43 AM EST Pulse 61 09/23/2024 11:43 AM EST Temperature 36.6 °C (97.9 °F) 09/23/2024 11:[address] Respiratory Rate - - Oxygen Saturation - - Inhaled Oxygen Concentration [...] documented in this encounter Progress Notes * Paul Peng, DO - 09/23/2024 1:04 PM EST Images from the original note were not included. WOUND OUTPATIENT FOLLOW-UP NOTE Meera Mcgraw 1955 HPI: Meera Mcgraw is being seen today for follow-up of bilateral lower extremity ulcers with venous insufficiency.. Current dressing: See Wound Assessment Dressing change frequency: every other day RLE Compression: Coban 2-lite LLE Compression: Coban 2-lite ROS: Pain: moderate Drainage: heavy serous Swelling: severe Erythema: moderate elizabeth-wound Fever/Chills: no Malaise: no ROS was negative other than stated above. [...] Skin Integrity Right;Anterior;Lower Leg (Active) Clinical Image 09/23/24 1144 Primary Dressing Present (removed today) -- (optilock) 09/23/24 1145 Secondary Dressing Present (removed today) Coban 2 09/23/24 1145 Wound Length (cm) 0 cm 09/23/24 1145 Wound Width (cm) 0 cm 09/23/24 1145 Wound Depth (cm) 0 cm 09/23/24 1145 Drainage serous, heavy (with blue/green) 09/23/24 1145 Odor (after cleansing wound) No 09/23/24 1145 Wound Surface Area (cm^2) 0 cm^2 09/23/24 1145 Wound Volume (cm^3) 0 cm^3 09/23/24 1145 Alteration in Skin Integrity Anterior;Left;Lower Leg (Active) Clinical Image 09/23/24 1145 Primary Dressing Present (removed today) -- (optilock) 09/23/24 1146 Secondary Dressing Present (removed today) Coban 2 09/23/24 1146 Wound Length (cm) 0 cm 09/23/24 1146 Wound Width (cm) 0 cm 09/23/24 1146 Wound Depth (cm) 0 cm 09/23/24 1146 Deep Supporting Structure Exposed None 09/23/24 1146 Drainage serous, heavy (with blue/green) 09/23/24 1146 Odor (after cleansing wound) No 09/23/24 1146 Elizabeth-Wound (Surrounding Skin) Edema;Erythematous;Intact;Macerated 09/23/24 1146 Evidence of Infection No 09/23/24 1146 Wound Surface Area (cm^2) 0 cm^2 09/23/24 1146 Wound Volume (cm^3) 0 cm^3 09/23/24 1146 Left Lower Extremity Assessment Edema: Lymphedema (09/23/24 1145) Right Lower Extremity Assessment Edema: Lymphedema (09/23/24 1145) Wound/Ulcer Debridement No Debridement Performed There was a thin layer of slough on the right calf that was easily abraded with a 4 x 4. ASSESSMENT/PLAN: 1. We will continue using Multidex powder with Optilock, ABD, and Coban 2 Lite. 2. Orders were sent to Home Health and the patient was given a copy to see if they can increase thedressing changes frequency. 3. We will follow up with her in 3 weeks. Plan: Dressing change Tramadol hcl 50 mg or tabs Sig:Take 1 tablet by mouth every 8 hours as needed for pain, moderate. If patient's pain level is greater than 4 please address below: Yes/Intenvention: Refill on her tramadol prescription. I spent a total of 40-54 minutes (exact time 45 mins) on the date of service in preparation, delivery, and documentation of the care provided to Meera Mcgraw excluding any time spent in the performance of separately billed services or time spent by another provider/QHP. Paul Peng DO 09/23/2024 documented in this encounter Nursing Notes * Pinky Newby RN - 09/23/2024 1:01 PM EST [facility] WOUND POST-DEBRIDEMENT NURSE ASSESSMENT & TREATMENT Wound # Locations: BLE Post-procedural Pain: 1 out of 10 (1 = no pain -- 10 = worst pain possible) Wound cleaned with saline Primary Dressing Applied: multidex powder Covered with: optilock/abds/conform Secured with: coban 2 lite Negative Pressure Wound Therapy (NPWT): N/A Applied? N/A PATIENT/FAMILY EDUCATION Teaching Methods: Verbal Person(s) Taught: Patient Learning Readiness: Good - Alert, Interested, Motivated Response/Evaluation: Verbalizes Knowledge/Understanding Topics Taught: Dressing Changes Handouts Provided? No VISIT DISCHARGE INFORMATION Disposition/Discharge Condition: Stable Disposition/Discharge to: Home Left via: Private Automobile Halfway Care (LTC): not applicable Home Health Agency: [facility] Therapeutic Objectives: Resolve Edema, Optimize Wound Bed Moisture Balance and Exudate/Odor Control, and Enhancement of Tissue Growth NARRATIVE COMMENTS Return to wound clinic in 3 weeks. Goals: Prevention of infection Possible barriers to meeting goals: none Stability of the patient: Moderately stable - low risk of patient condition declining or worsening Summary regarding today's goals: Met: No s/s infection observed. * Pinky Newby RN - 09/23/2024 11:43 AM EST [facility] Plan ID is not set. 09/23/2024 RISK FOR INFECTION Potential for Infection Patient will remain free from infection. Ensure aseptic care of all wounds. Pinky Newby RN Patient was instructed to not get up on the exam table/exam chair until directed and assisted by their provider; patient is to remain seated in the chair/ wheelchair/ exam table/ exam chair for fall prevention and safety reasons. Patient is aware to have assistance to step down off exam table/exam chair with personnel. Patient voiced full comprehension of instructions. documented in this encounter Plan of Treatment Upcoming Encounters Date Type Department Care Team (Late st Contact Info) Description 09/29/2024 4:00 PM EST Office Visit Pulmonary Medicine GW RUTH, Kymberly Zhang [address] [place] [address] [place] [phone] Braxton Elizalde MD [address] [facility] [place] [address] 10/14/2024 2:00 PM EST Office Visit Wound Care Angie Teran [address] [address] Paul Peng, DO [address] [address] 10/28/2024 1:30 PM EST Office Visit [facility] [address] [place] [address] Washington Gordon MD [address] [place] [address] [place] [address] 12/15/2024 4:20 PM EDT Office Visit Nephrology [facility] Kymberly Zhang [address] [facility] [place] [address] Elie Dixon MD [address] [facility] [place] [address] 12/23/2024 10:30 AM EDT Office Visit [facility] [address] [place] [address] Archana Nava MD [address] [place] [address] 12/24/2024 10:30 AM EDT Office Visit [facility]iology [facility] [address] [facility] [place] [address] Angela Briggs CRNP [address] [facility] [place] [address] 01/22/2025 1:15 PM EDT Imaging [facility] [address] [place] [address] Health Maintenance Due Date Last Done Comments [...] this encounter Medical Devices Implanted Type Area Miniature Set Designer Device Identifier Shelf Expiration Date Model / Serial / Lot Cath Drainage 10fr [facility]-10-038 - [id number] Implanted:Qty : 1 on 05/07/2023 at [facility] Right: Abdomen [employer] [id number] 02/15/2026 [facility]-10-03 8 / / [id number] documented as of this encounter Visit Diagnoses Diagnosis Venous stasis ulcers of both lower extremities (HCC)- Primary Sleep apnea, unspecified type Chronic kidney disease, stage 4 (severe) (HCC) Type 2 diabetes mellitus with diabetic polyneuropathy, with long-term current use of insulin (HCC) HTN, goal below 140/90 Unspecified essential hypertension Skin ulcer of multiple sites of lower [...] Advance Directives occurred with: Patient Care Teams Travel Registered Nurse Icu Relationship Specialty Start Date End Date Denis Urbina MD [address] [place] [address] PCP - General Family Medicine 04/17/22 documented as of this encounter
--- OUTSIDE RECORDS SUMMARY | 2025-01-09 05:38 | External Medical Summary | Summary of Care ---
Author Name Unknown Organization [facility] Address [address] [facility] [address] Phone [phone] Care Team Providers Care Manager Mobility Name Role Phone Denis Urbina MD Primary Care Provider [phone] Reason for Visit * Reason Onset Date Comments Advice 09/05/2024 Encounter Details Date Type Department Care Team (Late st Contact Info) Description 09/05/2024 Telephone Wound Care Angie Teran [address] [address] [phone] Indu Bearden CRNP [address] [address] Advice Allergies No known active allergiesdocumented as of this encounter (statuses as of 09/05/2024) Medications Albuterol Sulfate (2.5 MG/3ML) 0.083% Inhalation [...] 06/27/20 22 Active FreeStyle Maria Luz 2 [place] Device Use as directed . 1 Each 06/27/20 22 Active BD Insulin Syringe U/F 30G X 1/2" 0.3 ML (Insulin Syringe-Needle U-100)Indications: Type 2 diabetes mellitus without complication (HCC),Type 2 diabetes mellitus without complication, with long-term current use of insulin (HCC) INJECT UNDER THE SKIN 4 TIMES A DAY 100 Each 2 06/06/20 23 Active Droplet Pen [place] 31G X 5 MM (Insulin Pen Needle)Indications :Type 2 diabetes mellitus without complication, with long-term current use of insulin (HCC) inject subcutaneously four times a day 1000 Each 06/07/20 23 Active OneTouch UltraSoft LancetsIndications :Type 2 diabetes mellitus without complication, 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) Use as directed 4 [...] IZ PRN 04/17/2024 04/17/2025 Active lidocaine-epinephrine 2 %-1:512033 inj 6 mgIndications:Moderate nonproliferative diabetic retinopathy of both eyes with macular edema associated with type 2 diabetes mellitus (HCC),Optic nerve drusen, left,6th nerve palsy, right,Combined forms of age-related cataract of both eyes 6 mg IJ PRN 04/17/2024 04/17/2025 Active documented as of this encounter (statuses as of 09/05/2024) Active Problems Problem Noted Date Diagnosed Date [...] as of this encounter (statuses as of 09/05/2024) Resolved Problems Problem Noted Date Diagnosed Date [...] as of this encounter (statuses as of 09/05/2024) Immunizations Name Administration Dates Next Due Covid-19 Ad26, Single Dose ([place]/J&J) 021 Hepatitis B, 20+ yrs 12/08/2014,03/31/2011,02/23 Pneumococcal Conjugate Vacci ne, 20-valent ([id number]) 06/06/2023 Pneumococcal Polysaccharide PPV23 (Pneumovax) 02/10/2011 Seasonal [...] encounter Miscellaneous Notes * Telephone Encounter - Esther Bates RN - 09/05/2024 11:42 AM EST [facility]. Orders given and also faxed to office documented in this encounter Plan of Treatment Upcoming Encounters Date Type Department Care Team (Late st Contact Info) Description 09/09/2024 3:20 PM EST Office Visit Wound Care Angie Teran [address] [address] Indu Bearden CRNP [address] [address] [address] 10/28/2024 1:30 PM EST Office Visit Ophthalmology [facility] [address] [place] [address] [place] Gordon MD [address] [place] [address] 12/15/2024 4:20 PM EDT Office Visit Nephrology [facility] Kymberly MIRANDA [address] [place] [address] Elie Dixon MD [address] [place] [address] 12/23/2024 10:30 AM EDT Office Visit Ophthalmology [facility] [address] [place] [address] Archana Nava MD [address] [place] [address] 12/24/2024 10:30 AM EDT Office Visit Cardiology [facility] [address] [facility] [place] [address] Angela Briggs, SUPERVISING DEPUTY [address] [place] [address] 01/22/2025 1:15 PM EDT Imaging Radiology [facility] [address] [place] [address] Health Maintenance Due Date Last [...] this encounter Medical Devices Implanted Type Area Tank Builder Supervisor Device Identifier Shelf Expiration Date Model / Serial / Lot Cath Drainage 10fr [facility]-10-038 - [id number] Implanted:Qty : 1 on 05/07/2023 at [facility] Right: Abdomen [employer] [id number] 02/15/2026 [facility]-10-03 8 / / [id number] documented as of this encounter Additional Health [...] Advance Directives occurred with: Patient Care Teams Manager Mobility Relationship Specialty Start Date End Date Denis Urbina MD [address] [place] [address] PCP - General Family Medicine 04/17/22 documented as of this encounter
--- OUTSIDE RECORDS SUMMARY | 2025-01-09 05:38 | External Medical Summary | Summary of Care ---
Author Name Unknown Organization [facility] Address [address] [place] [address] Phone [phone] Care Team Providers Care Boxing Inspector Name Role Phone Denis Urbina MD Primary Care Provider [phone] Reason for Visit * Reason Comments Follow Up Encounter Details Date Type Department Care Team (Late st Contact Info) Description 09/04/2024 2:20 PM EST Office Visit Wound Care Angie Teran [address] [place] [address] Indu Bearden CRNP [address] [address] Type 2 diabetes with skin ulcer of [...] 06/27/20 22 Active FreeStyle Maria Luz 2 [place] Device Use as directed . 1 Each 06/27/20 22 Active BD Insulin Syringe U/F 30G X 1/2" 0.3 ML (Insulin Syringe-Needle U-100)Indications: Type 2 diabetes mellitus without complication (HCC),Type 2 diabetes mellitus without complication, with long-term current use of insulin (HCC) INJECT UNDER THE SKIN 4 TIMES A DAY 100 Each 2 06/06/20 23 Active Droplet Pen [place] 31G X 5 MM (Insulin Pen Needle)Indications :Type 2 diabetes mellitus without complication, with long-term current use of insulin (HCC) inject subcutaneously four times a day 1000 Each 06/07/20 23 Active OneTouch UltraSoft LancetsIndications :Type 2 diabetes mellitus without complication, unspecified whether [facility] insulin use (HCC) Use as directed 4 [...] IZ PRN 04/17/2024 04/17/2025 Active lidocaine-epinephrine 2 %-1:967793 inj 6 mgIndications:Moderate nonproliferative diabetic retinopathy of [...] yrs 12/08/2014,03/31/2011,02/23 Pneumococcal Conjugate Vacci ne, 20-valent ([id number]) 06/06/2023 Pneumococcal Polysaccharide PPV23 (Pneumovax) 02/10/2011 Seasonal [...] No 01/22/2024 Does the household have a [facility] source of income? (Household - for [...] Sign Reading Time Taken Comments Blood Pressure 122/60 09/04/2024 2:27 PM EST Pulse 71 09/04/2024 2:27 PM EST Temperature 36.7 °C (98.1 °F) 09/04/2024 2:27 PM ES T Respiratory Rate 20 09/04/2024 2:27 PM EST Oxygen Saturation - - Inhaled [...] Progress Notes * Indu Bearden CRNP - 09/05/2024 8:51 AM EST Images from the original note were not included. WOUND OUTPATIENT FOLLOW-UP NOTE Meera Mcgraw 1955 HPI: Meera Mcgraw is being seen today for follow-up. Patient reports swelling, redness and drainage from bilateral lower legs. She reports she was treated at [facility] on 06/24/24. She completed course of Bactrim and was applying Silvadene. She reports that [facility] is now applying dry dressings twice a week. She denies wearing compression. Denies fever, chills, N/V, and SOB. Current dressing: See [...] date: 03/08/2019 Quit date: 03/08/2022 Years since quittin.4 Smokeless Tobacco Never Tobacco Comments smoked in college also WOUND ASSESSMENT: Wound Grade/Stage/Type (if changed): Wound/Ulcer Etiology: Lymphedema and Venous Leg Ulcer Alteration in Skin Integrity Right;Anterior;Lower Leg (Active) Clinical Image 09/04/24 1437 Wound Length (cm) 12 cm 09/04/24 1436 Wound Width (cm) 10 cm 09/04/24 1436 Wound Depth (cm) 0.1 cm 09/04/24 1436 Undermining (cm) 0 09/04/24 1436 Sinus Tract (cm) 0 09/04/24 1436 Tunneling (cm) 0 09/04/24 1436 Ulcer Thickness Partial 09/04/24 143 Yellow Fibrinous Slough (%) 26-50% 09/04/24 1436 Granulation Tissue (%) 26-50% 09/04/24 1436 Granulation Tissue Color pale/pink 09/04/24 1436 Necrotic Tissue (%) none 09/04/24 143 Necrotic Tissue Color Not Applicable 09/04/24 1436 Deep Supporting Structure Exposed None 09/04/24 1436 Wound Surface Area (cm^2) 120 cm^2 09/04/24 1436 Wound Volume (cm^3) 12 cm^3 09/04/24 1436 Alteration in Skin Integrity Anterior;Left;Lower Leg (Active) Clinical Image 09/04/24 1438 Wound Length (cm) 13 cm 09/04/24 1437 Wound Width (cm) 4.5 cm 09/04/24 1437 Wound Depth (cm) 0.1 cm 09/04/24 1437 Undermining (cm) 0 09/04/24 1437 Sinus Tract (cm) 0 09/04/24 1437 Tunneling (cm) 0 09/04/24 1437 Ulcer Thickness Partial 09/04/24 1437 Yellow Fibrinous Slough (%) 51-75% 09/04/24 1437 Granulation Tissue (%) 1-25% 09/04/24 1437 Granulation Tissue Color red 09/04/24 1437 Necrotic Tissue (%) none 09/04/24 1437 Necrotic Tissue Color Not Applicable 09/04/24 1437 Deep Supporting Structure Exposed None 09/04/24 1437 Drainage serous, heavy 09/04/24 1437 Odor (after cleansing wound) No 09/04/24 1437 Janell-Wound (Surrounding Skin) Macerated 09/04/24 1437 Wound Surface Area (cm^2) 58.5 cm^2 09/04/24 1437 Wound Volume (cm^3) 5.85 cm^3 09/04/24 1437 Wound/Ulcer Debridement No Debridement Performed ASSESSMENT: ICD-10-CM 1. Type 2 diabetes with skin ulcer of lower extremity ([facility]) E11.622 L97.909 2. Skin ulcer of multiple sites of lower extremity, unspecified laterality, limited to breakdown ofskin ([facility]) L97.901 Plan: Dressing change Doxycycline hyclate 100 mg or caps Sig:Take 1 capsule by mouth in the morning and 1 capsule before bedtime. Tramadol hcl 50 mg or tabs Sig:Take 1 tablet by mouth every 8 hours as needed for pain, moderate. Apply multidex powder and optilock to open areas of bilateral lower legs, followed by coban 2 lite (two-layer wrap) for compression. Please wrap from toes to knee. Dressing changes three times per week. Call with any worsening symptoms, questions, or concerns. Follow-up in 1 week. If patient's pain level is greater than 4 please address below: Yes/Intenvention: One time script for Tramadol - recommended taking at night [facility] Angie Teran [address] [place] [address] documented in this encounter Nursing Notes * Yue Carmen MED ASSIST - 09/04/2024 3:13 PM EST [facility] WOUND POST-DEBRIDEMENT NURSE ASSESSMENT & TREATMENT Wound # Locations: BLE Post-procedural Pain: 2 out of 10 (1 = no pain -- 10 = worst pain possible) Wound cleaned with nss Primary Dressing Applied: multidex powder Covered with: optilock, ABD Secured with: coban 2 lite Negative Pressure Wound Therapy (NPWT): N/A Applied? N/A PATIENT/FAMILY EDUCATION Teaching Methods: Verbal Person(s) Taught: Patient Learning Readiness: Good - Alert, Interested, Motivated Response/Evaluation: Demonstrates Independently and Verbalizes Knowledge/Understanding Topics Taught: Dressing Changes Handouts Provided? No VISIT DISCHARGE INFORMATION Disposition/Discharge Condition: Stable Disposition/Discharge to: Home Left via: Private Automobile Nuclear Equipment Operator Care (LTC): not applicable Home Health Agency: Agency Name: [facility] Therapeutic Objectives: Enhancement of Tissue Growth and Relieve Pressure, Provide Effective Offloading, Protection, Injury Prevention, Preservation of Function and Activity NARRATIVE COMMENTS F/u 1 wk * Aminah Cazares RN - 09/04/2024 2:29 PM EST [facility] Plan ID is not set. 09/04/2024 RISK FOR INFECTION Potential for Infection Patient will remain free from infection. Change gloves between tasks and procedures. Ensure aseptic care of all wounds. Aminah Cazares RN Goals: met Possible barriers to meeting goals: [...] Wound Care Angie Teran [address] [address] nIdu Bearden CRNP [address] [address] 10/28/2024 1:30 PM EST Office Visit Ophthalmology [facility] [address] [place] [address] Washington Gordon MD [address] [place] [address] 12/15/2024 4:20 PM EDT Office Visit Nephrology [facility] Kymberly Zhang [address] [place] [address] Elie Dixon MD [address] [place] [address] 12/23/2024 10:30 AM EDT Office Visit Ophthalmology [facility] [address] [place] [address] Archana Nava MD [address] [place] [address] 12/24/2024 10:30 AM EDT Office Visit Cardiology [facility] [place] [address] [place] [address] Angela Briggs CRNP [address] [place] [address] 01/22/2025 1:15 PM EDT Imaging Radiology [facility] [address] [place] [address] Health Maintenance Due Date Last [...] this encounter Medical Devices Implanted Type Area Contract Administration Specialist Device Identifier Shelf Expiration Date Model / Serial / Lot Cath Drainage 10fr Rlc-10-038 - [id number] Implanted:Qty : 1 on 05/07/2023 at [facility] Right: Abdomen [employer] [id number] 02/15/2026 RLC-10-03 8 [id number] documented as of this encounter Visit Diagnoses [...] Advance Directives occurred with: Patient Care Teams Boxing Inspector Relationship Specialty Start Date End Date Spaolini, Denis, MD [address] [place] [address] PCP - General Family Medicine 04/17/22 documented as of this encounter
--- OUTSIDE RECORDS SUMMARY | 2025-01-09 05:38 | External Medical Summary | Summary of Care ---
Author Name Unknown Organization [facility] Address [address] [place] [address] Phone [phone] Care Team Providers Care Career And Guidance Counselor Name Role Phone Denis Urbina MD Primary Care Provider [phone] Reason for Visit * Reason Onset Date Comments Appointment 07/23/2024 Encounter Details Date Type Department Care Team ([facility] st Contact Info) Description 07/23/2024 Telephone [facility] [address] [place] [address] Denis Urbina MD [address] [place] [address] Appointment Allergies No known active allergiesdocumented as of this encounter (statuses as of 09/03/2024) Medications Albuterol Sulfate (2.5 MG/3ML) 0.083% Inhalation [...] 06/27/20 22 Active FreeStyle Maria Luz 2 [place] Device Use as directed . 1 Each 06/27/20 22 Active BD Insulin Syringe U/F 30G X 1/2" 0.3 ML (Insulin Syringe-Needle U-100)Indications: Type 2 diabetes mellitus without complication (HCC),Type 2 diabetes mellitus without complication, with long-term current use of insulin (HCC) INJECT UNDER THE SKIN 4 TIMES A DAY 100 Each 2 06/06/20 23 Active Droplet Pen [place] 31G X 5 MM (Insulin Pen Needle)Indications :Type 2 diabetes mellitus without complication, with long-term current use of insulin (HCC) inject subcutaneously four times a day 1000 Each 06/07/20 23 Active OneTouch UltraSoft LancetsIndications :Type 2 diabetes mellitus without complication, unspecified whether fpc insulin use (HCC) Use as directed 4 [...] for insomnia 30 Tablet 12/24/19 24 Active ReliOn Premier Test In [...] THE TONGUE DAILY 90 Tablet 3 06/06/20 Active Ondansetron 4 MG Oral Tablet Disintegrating (Zofran)Indication s:Nausea Place 1 Tablet on tongue every 8 hours as needed for Nausea. dissolve on tongue. 30 Tablet 1 06/09/20 Active Multivitamin Adult Oral Tablet Take 1 tablet by mouth daily. 30 Tablet 3 06/09/20 24 Active Hospital, Clinic, or Other Facility [...] IZ PRN 04/17/2024 04/17/2025 Active lidocaine-epinephrine 2 %-1:993299 inj 6 mgIndications:Moderate nonproliferative diabetic retinopathy of both eyes with macular edema associated with type 2 diabetes mellitus (HCC),Optic nerve drusen, left,6th nerve palsy, right,Combined forms of age-related cataract of both eyes 6 mg IJ PRN 04/17/2024 04/17/2025 Active documented as of this encounter (statuses as of 09/03/2024) Active Problems Problem Noted Date Diagnosed Date [...] as of this encounter (statuses as of 09/03/2024) Resolved Problems Problem Noted Date Diagnosed Date [...] as of this encounter (statuses as of 09/03/2024) Immunizations Name Administration Dates Next Due Covid-19 Ad26, Single Dose ([place]/J&J) 021 Hepatitis B, 20+ yrs 12/08/2014,03/31/2011,02/23 Pneumococcal Conjugate Vacci ne, 20-valent (Vmalbus12) 06/06/2023 Pneumococcal Polysaccharide PPV23 (Pneumovax) 02/10/2011 Seasonal [...] encounter Miscellaneous Notes * Telephone Encounter - Jerica Antonio OSA - 09/03/2024 9:41 AM EST LM to call and schedule appt * Telephone Encounter - Fausto Rodgers, Ray Davis PA-C - 07/23/2024 4:36 PM EDT Pt should present to UC or ER if no openings sooner. Nurses please help reschedule sooner if she refuses. Patient to be seen -- Should the patient be seen as an overbook? no -- Can the patient see anyone (acute appt in clinic, urgent care, any other available) yes -- Can the patient be seen via telemedicine? no * Telephone Encounter - Leti Washburn OSA - 07/23/2024 3:49 PM EDT Pt missed her appt today because her transportation did not show up - wants to r/s for tomorrow - no appt avail at [facility] until Aug 20 - pt wants sooner appt due to an open wound on her leg Please advise [phone] documented in this encounter Plan of Treatment Upcoming Encounters Date Type Department Care Team (Late st Contact Info) Description 09/04/2024 2:20 PM EST Office Visit Wound Care Angie Teran [address] [address] Idnu Bearden CRNP [address] [address] 10/28/2024 1:30 PM EST Office Visit Ophthalmology [facility] [address] [place] [address] Washington Gordon MD [address] [place] [address] 12/15/2024 4:20 PM EDT Office Visit Nephrology [facility] Kymberly MIRANDA [address] [place] [address] Elie Dixon MD [address] [place] [address] 12/23/2024 10:30 AM EDT Office Visit Ophthalmology [facility] [address] [place] [address] Archana Nava MD [address] [place] [address] 12/24/2024 10:30 AM EDT Office Visit Cardiology [facility] [address] [place] [facility] [place] [address] Angela Briggs CRNP [address] [place] [facility] [place] [address] 01/22/2025 1:15 PM EDT Imaging Radiology [facility] [address] [place] [address] Health Maintenance Due Date Last Done Comments [...] this encounter Medical Devices Implanted Type Area Dehydration Plant Operator Device Identifier Shelf Expiration Date Model / Serial / Lot Cath Drainage 10fr Rl-10-038 - [id number] Implanted:Qty : 1 on 05/07/2023 at [facility] Right: Abdomen [employer] [id number] 02/15/2026 [facility]-10-03 8 / / [id number] documented as of this encounter Additional Health [...] Advance Directives occurred with: Patient Care Teams Career And Guidance Counselor Relationship Specialty Start Date End Date Denis Urbina MD [address] [place] [address] PCP - General Family Medicine 04/17/22 documented as of this encounter
--- OUTSIDE RECORDS SUMMARY | 2025-01-09 05:38 | External Medical Summary | Summary of Care ---
Author Name Unknown Organization [facility] Address [address] [place] [address] Phone [phone] Care Team Providers Care Financial Aid Counselor Name Role Phone Denis Urbina MD Primary Care Provider + [phone] Reason for Visit * Reason Onset Date Comments Fax 09/03/2024 Encounter Details Date Type Department Care Team ([facility] st Contact Info) Description 09/03/2024 Telephone [facility] [address] [place] [address] Denis Urbina MD [address] [place] [address] Fax Allergies No known active allergiesdocumented as of [...] 06/27/20 22 Active FreeStyle Maria Luz 2 [place] Device Use as directed . 1 Each 06/27/20 22 Active BD Insulin Syringe U/F 30G X 1/2" 0.3 ML (Insulin Syringe-Needle U-100)Indications: Type 2 diabetes mellitus without complication (HCC),Type 2 diabetes mellitus without complication, with long-term current use of insulin (HCC) INJECT UNDER THE SKIN 4 TIMES A DAY 100 Each 2 06/06/20 23 Active Droplet Pen [place] 31G X 5 MM (Insulin Pen Needle)Indications :Type 2 diabetes mellitus without complication, with long-term current use of insulin (HCC) inject subcutaneously four times a day 1000 Each 06/07/20 23 Active OneTouch UltraSoft LancetsIndications :Type 2 diabetes mellitus without complication, unspecified whether long term care pharmacist insulin use (HCC) Use as directed 4 [...] E 11.9 15 mL 01/16/20 24 Active NovoLOG FlexPen 100 UNIT/ML [...] Anxiety. 90 Tablet 1 06/04/20 24 Active Pregabalin 25 MG Oral [...] changes. 85 g 1 07/25/20 24 Active Hospital, Clinic, or Other Facility [...] IZ PRN 04/17/2024 04/17/2025 Active lidocaine-epinephrine 2 %-1:202777 inj 6 mgIndications:Moderate nonproliferative diabetic retinopathy of [...] Onychomycosis of nail of digit of hand 4 COPD, group C, by GOLD 2017 classification [...] yrs 12/08/2014,03/31/2011,02/23 Pneumococcal Conjugate Vacci ne, 20-valent ([id number]) 06/06/2023 Pneumococcal Polysaccharide PPV23 (Pneumovax) 02/10/2011 Seasonal [...] Miscellaneous Notes * Telephone Encounter - Ana Soliz LPN - 09/03/2024 2:25 PM EST Faxed information as requested. * Telephone Encounter - Beth Martell OSA - 09/03/2024 2:09 PM EST Caller requesting the following information to be faxed: Name/Company of caller: Martha with [employer] Information requested to be faxed: OV notes pertaining to patient's oxygen and any OV notes from 05/29/2024 forward Fax number: [phone] Attention to Name/Company: [employer] Any additional information?: n/a documented in this encounter Plan of Treatment Upcoming Encounters Date Type Department Care Team (Late st Contact Info) Description 09/04/2024 2:20 PM EST Office Visit Wound Care Angie Teran [address] [address] Indu Bearden CRNP [address] [place] [address] [address] 10/28/2024 1:30 PM EST Office Visit Ophthalmology [facility] [address] [place] [address] [place] Gordon MD [address] [place] [address] 12/15/2024 4:20 PM EDT Office Visit Nephrology [facility] Kymberly MIRANDA [address] [place] [address] Elie Dixon MD [address] [place] [address] 12/23/2024 10:30 AM EDT Office Visit Ophthalmology [facility] [address] [place] [address] Archana Nava MD [address] [place] [address] 12/24/2024 10:30 AM EDT Office Visit Cardiology [facility] [place] [address] [facility] [place] [address] Angela Briggs, AZEEM [address] [place] [address] 01/22/2025 1:15 PM EDT Imaging Radiology [facility] [address] [place] [address] Health Maintenance Due Date Last Done Comments [...] this encounter Medical Devices Implanted Type Area Warp Knitting Machine Operator Device Identifier Shelf Expiration Date Model / Serial / Lot Cath Drainage 10fr [facility]-10-038 - [id number] Implanted:Qty : 1 on 05/07/2023 at [facility] Right: Abdomen [employer] [id number] 02/15/2026 [facility]-10-03 8 / / [id number] documented as of this encounter Additional Health [...] Advance Directives occurred with: Patient Care Teams Financial Aid Counselor Relationship Specialty Start Date End Date Denis Urbina MD [address] [place] [address] PCP - General Family Medicine 04/17/22 documented as of this encounter
--- OUTSIDE RECORDS SUMMARY | 2025-01-09 05:38 | External Medical Summary | Summary of Care ---
Author Name Unknown Organization [facility] Address [address] [place] [address] Phone [phone] Care Team Providers Care Respiratory Supervisor Name Role Phone Denis Urbina MD Primary Care Provider + [phone] Reason for Visit * Reason Onset Date Comments No Show 08/30/2024 [facility] No Show Auto mation Encounter Details Date Type Department Care Team (Late st Contact Info) Description 08/30/2024 Telephone Wound Care Angie Teran [address] [address] Indu Malone CRNP [address] [address] No Show ([place] No Show Automation) Allergies No known active allergiesdocumented as of this encounter (statuses as of 08/30/2024) Medications Albuterol Sulfate (2.5 MG/3ML) 0.083% Inhalation [...] Sensor Use as directed . 1 Each 10/04/20 22 Active FreeStyle Maria Luz 2 [place] Device Use as directed . 1 Each 06/27/20 22 Active BD Insulin Syringe U/F 30G X 1/2" 0.3 ML (Insulin Syringe-Needle U-100)Indications: Type 2 diabetes mellitus without complication (HCC),Type 2 diabetes mellitus without complication, with long-term current use of insulin (HCC) INJECT UNDER THE SKIN 4 TIMES A DAY 100 Each 2 06/06/20 23 Active Droplet Pen [place] 31G X 5 MM (Insulin Pen Needle)Indications :Type 2 diabetes mellitus without complication, with long-term current use of insulin (HCC) inject subcutaneously four times a day 1000 Each 06/07/20 23 Active OneTouch UltraSoft LancetsIndications :Type 2 diabetes mellitus without complication, unspecified whether continuous churn buttermaker insulin use (HCC) Use as directed 4 [...] IZ PRN 04/17/2024 04/17/2025 Active lidocaine-epinephrine 2 %-1:238708 inj 6 mgIndications:Moderate nonproliferative diabetic retinopathy of both eyes with macular edema associated with type 2 diabetes mellitus (HCC),Optic nerve drusen, left,6th nerve palsy, right,Combined forms of age-related cataract of both eyes 6 mg IJ PRN 04/17/2024 04/17/2025 Active documented as of this encounter (statuses as of 08/30/2024) Active Problems Problem Noted Date Diagnosed Date [...] as of this encounter (statuses as of 08/30/2024) Resolved Problems Problem Noted Date Diagnosed Date [...] as of this encounter (statuses as of 08/30/2024) Immunizations Name Administration Dates Next Due Covid-19 Ad26, Single Dose ([place]/J&J) 021 Hepatitis B, 20+ yrs 12/08/2014,03/31/2011,02/23 Pneumococcal Conjugate Vacci ne, 20-valent ([id number]) 06/06/2023 Pneumococcal Polysaccharide PPV23 (Pneumovax) 02/10/2011 Seasonal [...] Miscellaneous Notes * Telephone Encounter - Lulu, No Show - 08/30/2024 9:36 AM EST Dear Meera Mcgraw, Looks like you missed an appointment with INDU CONNOR ROBERTSONIO on 08/27/2024 at 09:40 AM. If you haven't already rescheduled, you have a couple of options: Reschedule in [email or web address] Call us at [phone] Can't make a future appointment? Cancel and let someone else have your spot! It's easy to do via [employer] [place] or by calling us. Thanks for trusting [facility] with your care. We hope to see you back in our office soon. Sincerely, INDU MALONE documented in this encounter Plan of Treatment Upcoming Encounters Date Type Department Care Team (Late st Contact Info) Description 10/28/2024 1:30 PM EST Office Visit Ophthalmology [facility] [address] [place] [address] Washington Gordon MD [address] [place] [address] 12/15/2024 4:20 PM EDT [facility] [address] [place] [address] Elie Dixon MD [address] [place] [address] 12/23/2024 10:30 AM EDT Office Visit Ophthalmology [facility] [address] [place] [address] Archana Nava MD [address] [place] [address] 12/24/2024 10:30 AM EDT [facility] [address] [place] [address] Angela Briggs CRNP [address] [facility] [place] [address] 01/22/2025 1:15 PM EDT Imaging Radiology [facility] [address] [place] [address] Health Maintenance Due Date Last [...] this encounter Medical Devices Implanted Type Area Oracle Fusion Developer Device Identifier Shelf Expiration Date Model / Serial / Lot Cath Drainage 10fr [facility]-10-038 - [id number] Implanted:Qty : 1 on 05/07/2023 at [facility] Right: Abdomen [employer] [id number] 02/15/2026 [facility]-10-03 8 / / [id number] documented as of this encounter Additional Health [...] Advance Directives occurred with: Patient Care Teams Respiratory Supervisor Relationship Specialty Start Date End Date Denis Urbina MD [address] [place] [address] PCP - General Family Medicine 04/17/22 documented as of this encounter
--- OUTSIDE RECORDS SUMMARY | 2025-01-09 05:38 | External Medical Summary | Summary of Care ---
Author Name Unknown Organization [facility] Address [address] [place] [address] Phone [phone] Care Team Providers Care Spool Tender Name Role Phone Denis Urbina MD Primary Care Provider + [phone] Encounter Details Date Type Department Care Team (Late st Contact Info) Description 08/18/2024 Orders Only Outcomes Research Department [address] [place] [address] Vida Bains CHRA [employer] Other*[id number] Allergies No known active allergiesdocumented as of this encounter (statuses as of 08/18/2024) Medications Albuterol Sulfate (2.5 MG/3ML) 0.083% Inhalation [...] 06/27/20 22 Active FreeStyle Maria Luz 2 [place] Device Use as directed . 1 Each 06/27/20 22 Active BD Insulin Syringe U/F 30G X 1/2" 0.3 ML (Insulin Syringe-Needle U-100)Indications: Type 2 diabetes mellitus without complication (HCC),Type 2 diabetes mellitus without complication, with long-term current use of insulin (HCC) INJECT UNDER THE SKIN 4 TIMES A DAY 100 Each 2 06/06/20 23 Active Droplet Pen [place] 31G X 5 MM (Insulin Pen Needle)Indications :Type 2 diabetes mellitus without complication, with long-term current use of insulin (HCC) inject subcutaneously four times a day 1000 Each 06/07/20 23 Active OneTouch UltraSoft LancetsIndications :Type 2 diabetes mellitus without complication, unspecified whether care home insulin use (HCC) Use as directed [...] IZ PRN 04/17/2024 04/17/2025 Active lidocaine-epinephrine 2 %-1:054174 inj 6 mgIndications:Moderate nonproliferative diabetic retinopathy of both eyes with macular edema associated with type 2 diabetes mellitus (HCC),Optic nerve drusen, left,6th nerve palsy, right,Combined forms of age-related cataract of both eyes 6 mg IJ PRN 04/17/2024 04/17/2025 Active documented as of this encounter (statuses as of 08/18/2024) Active Problems Problem Noted Date Diagnosed Date [...] as of this encounter (statuses as of 08/18/2024) Resolved Problems Problem Noted Date Diagnosed Date [...] as of this encounter (statuses as of 08/18/2024) Immunizations Name Administration Dates Next Due Covid-19 Ad26, Single Dose (Alona/J&J) 021 Hepatitis B, 20+ yrs 12/08/2014,03/31/2011,02/23 Pneumococcal Conjugate Vacci ne, 20-valent ([id number]) 06/06/2023 Pneumococcal Polysaccharide PPV23 (Pneumovax) 02/10/2011 Seasonal [...] Oswaldo Dill RN documented in this encounter Plan of Treatment Upcoming Encounters Date Type Department Care Team (Late st Contact Info) Description 08/27/2024 9:40 AM EST Office Visit Wound Care Angie Teran [address] [place] [address] [address] Indu Bearden CRNP [address] [address] 10/28/2024 1:30 PM EST Office Visit Ophthalmology [facility] [address] [place] [address] Washington Gordon MD [address] [place] [address] 12/15/2024 4:20 PM EDT [facility] [address] [place] [address] Elie Dixon MD [address] [place] [facility] [place] [address] 12/23/2024 10:30 AM EDT Office Visit Ophthalmology [facility] [address] [place] [address] Archana Nava MD [address] [place] [address] 12/24/2024 10:30 AM EDT Office Visit Cardiology [facility] [address] [facility] [place] [address] Angela Briggs CRNP [address] [facility] [place] [address] 01/22/2025 1:15 PM EDT Imaging Radiology [facility] [address] [place] [address] Scheduled Orders Name Type Priority Associated Diagnoses Orde r Schedule MYCODE SUBSEQUENT ADULT Lab Routine [facility] Other*[id number] Every 6 Months for 2 Occurrences starting 08/18/2024 until 09/07/2025 Health Maintenance Due Date Last Done Comments [...] this encounter Medical Devices Implanted Type Area Sticker On Device Identifier Shelf Expiration Date Model / Serial / Lot Cath Drainage 10fr Rlc-10-038 - [id number] Implanted:Qty : 1 on 05/07/2023 at [facility] Right: Abdomen [employer] [facility] [id number] 02/15/2026 RLC-10-03 8 / / [id number] documented as of this encounter Visit Diagnoses Diagnosis [facility] [facility] Other*[id number] documented in this encounter Additional Health Concerns [...] Advance Directives occurred with: Patient Care Teams Spool Tender Relationship Specialty Start Date End Date Denis Urbina MD [address] [place] [address] PCP - General Family Medicine 04/17/22 documented as of this encounter
--- OUTSIDE RECORDS SUMMARY | 2025-01-09 05:38 | External Medical Summary | Summary of Care ---
Author Name Unknown Organization [facility] Address [address] [place] [address] Phone [phone] Care Team Providers Care Department Secretary Name Role Phone Denis Urbina MD Primary Care Provider + [phone] Reason for Visit * Reason Onset Date Comments Advice 08/25/2024 Teets Encounter Details Date Type Department Care Team (Late st Contact Info) Description 08/25/2024 Telephone Cardiology [facility] [address] [place] [address] Teets, AZEEM Mireles [address] [place] [address] Advice (Teets) Allergies No known active allergiesdocumented as of this encounter (statuses as of 08/29/2024) Medications Albuterol Sulfate (2.5 MG/3ML) 0.083% Inhalation [...] 06/27/20 22 Active FreeStyle Maria Luz 2 [place] Device Use as directed . 1 Each 06/27/20 22 Active BD Insulin Syringe U/F 30G X 1/2" 0.3 ML (Insulin Syringe-Needle U-100)Indications: Type 2 diabetes mellitus without complication (HCC),Type 2 diabetes mellitus without complication, with long-term current use of insulin (HCC) INJECT UNDER THE SKIN 4 TIMES A DAY 100 Each 2 06/06/20 23 Active Droplet Pen [place] 31G X 5 MM (Insulin Pen Needle)Indications [...] IZ PRN 04/17/2024 04/17/2025 Active lidocaine-epinephrine 2 %-1:479622 inj 6 mgIndications:Moderate nonproliferative diabetic retinopathy of both eyes with macular edema associated with type 2 diabetes mellitus (HCC),Optic nerve drusen, left,6th nerve palsy, right,Combined forms of age-related cataract of both eyes 6 mg IJ PRN 04/17/2024 04/17/2025 Active documented as of this encounter (statuses as of 08/29/2024) Active Problems Problem Noted Date Diagnosed Date [...] as of this encounter (statuses as of 08/29/2024) Resolved Problems Problem Noted Date Diagnosed Date [...] as of this encounter (statuses as of 08/29/2024) Immunizations Name Administration Dates Next Due Covid-19 Ad26, Single Dose (Alona/J&J) 021 Hepatitis B, 20+ yrs 12/08/2014,03/31/2011,02/23 Pneumococcal Conjugate Vacci ne, 20-valent ([id number]) 06/06/2023 Pneumococcal Polysaccharide PPV23 (Pneumovax) 02/10/2011 Seasonal [...] Telephone Encounter - Angela Briggs CRNP - 08/29/2024 3:02 PM EST Attempted to call Meera. No answer VM box is full. * Telephone Encounter - Breann Shah OSA - 08/25/2024 1:45 PM EST Person calling: Meera Relationship to patient: pt Phone/Fax to return call: [phone] Reason for call(brief): sudden weight gain Pharmacy: Provider Name:Brigitte Detailed message to office:Pt calling with symptom of sudden weight gain. Call transferred to care team 3 documented in this encounter Plan of Treatment Upcoming Encounters Date Type Department Care Team (Late st Contact Info) Description 10/28/2024 1:30 PM EST Office Visit Ophthalmology [facility] [address] [place] [address] [place] Gordon MD [address] [address] 12/15/2024 4:20 PM EDT [facility] [address] [facility] [place] [address] Elie Dixon MD [address] [place] [address] 12/23/2024 10:30 AM EDT Office Visit Ophthalmology [facility] [address] [place] [address] Archana Nava MD [address] [place] [address] 12/24/2024 10:30 AM EDT Office Visit Cardiology [facility] [address] [facility] [place] [address] Angela Briggs CRNP [address] [facility] [place] [address] 01/22/2025 1:15 PM EDT Imaging Radiology [facility] [address] [place] [address] Health Maintenance Due Date Last Done Comments [...] this encounter Medical Devices Implanted Type Area Movement Assembler Device Identifier Shelf Expiration Date Model / Serial / Lot Cath Drainage 10fr [facility]-10-038 - [id number] Implanted:Qty : 1 on 05/07/2023 at [facility] Right: Abdomen [employer] [facility] [id number] 02/15/2026 [facility]-10-03 8 / / [id number] documented as of this encounter Additional Health [...] Advance Directives occurred with: Patient Care Teams Department Secretary Relationship Specialty Start Date End Date Denis Urbina MD [address] [place] [address] PCP - General Family Medicine 04/17/22 documented as of this encounter
--- OUTSIDE RECORDS SUMMARY | 2025-01-09 05:38 | External Medical Summary | Summary of Care ---
Author Name Unknown Organization [facility] Address [address] [facility] [address] Phone [phone] Care Team Providers Care Insert Molding Operator Name Role Phone Denis Urbina MD Primary Care Provider [phone] Reason for Visit * Reason Onset Date Comments Advice 09/08/2024 Encounter Details Date Type Department Care Team (Late st Contact Info) Description 09/08/2024 Telephone Wound Care Angie Teran [address] [id number] Indu Bearden CRNP [address] [place] [address] [address] Advice Allergies No known active allergiesdocumented as of this encounter (statuses as of 09/08/2024) Medications Albuterol Sulfate (2.5 MG/3ML) 0.083% Inhalation [...] 06/27/20 22 Active FreeStyle Maria Luz 2 [place] Device Use as directed . 1 Each [...] 2 diabetes mellitus without complication, unspecified whether regional intermodal truck driver insulin use (HCC) Use [...] IZ PRN 04/17/2024 04/17/2025 Active lidocaine-epinephrine 2 %-1:931891 inj 6 mgIndications:Moderate nonproliferative diabetic retinopathy of both eyes with macular edema associated with type 2 diabetes mellitus (HCC),Optic nerve drusen, left,6th nerve palsy, right,Combined forms of age-related cataract of both eyes 6 mg IJ PRN 04/17/2024 04/17/2025 Active documented as of this encounter (statuses as of 09/08/2024) Active Problems Problem Noted Date Diagnosed Date [...] as of this encounter (statuses as of 09/08/2024) Resolved Problems Problem Noted Date Diagnosed Date [...] as of this encounter (statuses as of 09/08/2024) Immunizations Name Administration Dates Next Due Covid-19 Ad26, Single Dose (Alona/J&J) 021 Hepatitis B, 20+ yrs 12/08/2014,03/31/2011,02/23 Pneumococcal Conjugate Vacci ne, 20-valent (Qsamvoc12) 06/06/2023 Pneumococcal Polysaccharide PPV23 (Pneumovax) 02/10/2011 Seasonal [...] Telephone Encounter - Pinky Newby RN - 09/08/2024 12:38 PM EST Received a call from pt home health nurse from [facility]. She reported that she does not have coban 2dressing to apply (does have unna boot) to pt and that leg is macerated. Discussed same with AZEEM. Nurse is to apply multidex powder, optilock, abds, unna boot, and coban. Nurse verbalized understanding of same. documented in this encounter Plan of Treatment Upcoming Encounters Date Type Department Care Team (Late st Contact Info) Description 09/09/2024 3:20 PM EST Office Visit Wound Care Angie Teran [address] [place] [address] [address] Indu Bearden CRNP [address] [address] 10/28/2024 1:30 PM EST Office Visit Ophthalmology [facility] [address] [place] [address] Washington Gordon MD [address] [place] [address] 12/15/2024 4:20 PM EDT Office Visit Nephrology [facility] [address] [place] [address] Elie Dixon MD [address] [place] [address] 12/23/2024 10:30 AM EDT Office Visit Ophthalmology [facility] [address] [place] [address] Archana Nava MD [address] [place] [address] 12/24/2024 10:30 AM EDT Office Visit Cardiology [facility] [address] [place] [facility] [place] [address] Angela Briggs, AZEEM [address] [place] [facility] [place] [address] 01/22/2025 1:15 PM EDT Imaging Radiology [facility] [address] [place] [address] Health Maintenance Due Date Last Done Comments [...] this encounter Medical Devices Implanted Type Area Auto Driver Device Identifier Shelf Expiration Date Model / Serial / Lot Cath Drainage 10fr Rl-10-038 - [id number] Implanted:Qty : 1 on 05/07/[address] [facility] Right: Abdomen [employer] [id number] 02/15/2026 [facility]-10-03 8 / / [id number] documented as of this encounter Additional Health [...] Advance Directives occurred with: Patient Care Teams Insert Molding Operator Relationship Specialty Start Date End Date Denis Urbina MD [address] [place] [address] PCP - General Family Medicine 04/17/22 documented as of this encounter
--- OUTSIDE RECORDS SUMMARY | 2025-01-09 05:39 | External Medical Summary | Summary of Care ---
Author Name Unknown Organization [facility] Address [address] [place] [address] Phone [phone] Care Team Providers Care [employer] Salesperson Name Role Phone Denis Urbina MD Primary Care Provider [phone] Reason for Visit * Reason Onset Date Comments No Show 08/12/2024 [facility] No Show Auto mation Encounter Details Date Type Department Care Team (Late st Contact Info) Description 08/12/2024 Telephone Wound Care Angie Teran [address] [place] [address] [address] Irena Peng, [address] [place] [address] [address] No Show ([place] No Show Automation) Allergies No known active allergiesdocumented as of this encounter (statuses as of 08/12/2024) Medications Albuterol Sulfate (2.5 MG/3ML) 0.083% Inhalation [...] 06/27/20 22 Active FreeStyle Maria Luz 2 [place] Device Use as directed . 1 Each 06/27/20 22 Active BD Insulin Syringe U/F 30G X 1/2" 0.3 ML (Insulin Syringe-Needle U-100)Indications: Type 2 diabetes mellitus without complication (HCC),Type 2 diabetes mellitus without complication, with long-term current use of insulin (HCC) INJECT UNDER THE SKIN 4 TIMES A DAY 100 Each 2 06/06/20 23 Active Droplet Pen [place] 31G X 5 MM (Insulin Pen Needle)Indications :Type 2 diabetes mellitus without complication, with long-term current use of insulin (HCC) inject subcutaneously four times a day 1000 Each 06/07/20 23 Active OneTouch UltraSoft LancetsIndications :Type 2 diabetes mellitus without complication, unspecified whether terminal worker insulin use (HCC) Use as directed 4 [...] 06/04/20 24 Active Vitamin D3 50 MCG (1999 [place]) Oral CapsuleIndications :Vitamin D deficiency Take [...] IZ PRN 04/17/2024 04/17/2025 Active lidocaine-epinephrine 2 %-1:051040 inj 6 mgIndications:Moderate nonproliferative diabetic retinopathy of both eyes with macular edema associated with type 2 diabetes mellitus (HCC),Optic nerve drusen, left,6th nerve palsy, right,Combined forms of age-related cataract of both eyes 6 mg IJ PRN 04/17/2024 04/17/2025 Active documented as of this encounter (statuses as of 08/12/2024) Active Problems Problem Noted Date Diagnosed Date [...] as of this encounter (statuses as of 08/12/2024) Resolved Problems Problem Noted Date Diagnosed Date [...] as of this encounter (statuses as of 08/12/2024) Immunizations Name Administration Dates Next Due Covid-19 Ad26, Single Dose (Alona/J&J) 021 Hepatitis B, 20+ yrs 12/08/2014,03/31/2011,02/23 Pneumococcal Conjugate Vacci ne, 20-valent ([id number]) 06/06/2023 Pneumococcal Polysaccharide PPV23 (Pneumovax) 02/10/2011 Seasonal [...] encounter Miscellaneous Notes * Telephone Encounter - Kathy, No Show - 08/12/2024 2:13 PM EST Dear Meera Mcgraw, Looks like you missed an appointment with IRENA PENG on 08/04/2024 at 03:00 PM. If you haven't already rescheduled, you have a couple of options: Reschedule in [employer]/scheduling Call us at [phone] Can't make a future appointment? Cancel and let someone else have your spot! It's easy to do via [employer] or by calling us. [facility] We hope to see you back in our office soon. Sincerely, IRENA PENG documented in this encounter Plan of Treatment Upcoming Encounters Date Type Department Care Team (Late st Contact Info) Description 08/18/2024 11:20 AM EST Office Visit Wound Care Angie Teran [address] [place] [address] [address] Indu Bearden CRNP [address] [place] [address] [address] 08/19/2024 12:15 PM EST Office Visit Ophthalmology [facility] [address] [place] [address] Washington Gordon MD [address] [place] [address] [place] [address] 10/28/2024 1:30 PM EST Office Visit Ophthalmology [facility] [address] [place] [address] Washington Gordon MD [address] [place] [address] [place] [address] 12/15/2024 4:20 PM EDT Office Visit Nephrology [facility], [place] [facility] [address] [facility] [place] [address] Elie Dixon MD [address] [place] [address] 12/23/2024 10:30 AM EDT Office Visit Ophthalmology [facility] [address] [place] [address] Archana Nava MD [address] [place] [address] 12/24/2024 10:30 AM EDT Office Visit Cardiology [facility] [address] [facility] [place] [address] Angela Briggs CRNP [address] [facility] [place] [address] 01/22/2025 1:15 PM EDT Imaging Radiology [facility] [address] [place], [place] [address] Health Maintenance Due Date Last Done Comments [...] this encounter Medical Devices Implanted Type Area Dental Insurance Biller Device Identifier Shelf Expiration Date Model / Serial / Lot Cath Drainage 10fr Rl-10-038 - [id number] Implanted:Qty : 1 on 05/07/2023 at [facility] Right: Abdomen [employer] [id number] 02/15/2026 [facility]-10-03 8 / / [id number] documented as of this encounter Additional Health [...] Advance Directives occurred with: Patient Care Teams [employer] Salesperson Relationship Specialty Start Date End Date Denis Urbina MD [address] [place] [address] PCP - General Family Medicine 04/17/22 documented as of this encounter
--- OUTSIDE RECORDS SUMMARY | 2025-01-09 05:39 | External Medical Summary | Summary of Care ---
Author Name Unknown Organization [facility] Address [address] [place] [address] Phone [phone] Care Team Providers Care Proof Reader Name Role Phone Denis Urbina MD Primary Care Provider + [phone] Reason for Referral * Evaluate & Treat - Unlimited Visits (Within 3 days (urgent)) - Authorized Specialty Diagnoses / Procedures Referred By Ita carlin Referred To Contact Wound Care Diagnoses Wound of right lower extremity, initial encounter Poornima London PA-C [address] [place] [address] Referral ID Status Reason Start Date Expiration Date Visits Requested Visits Authorized [id number] Authorized Specialty Services Required 07/25/[phone] Question Answer Referral Priority Within 3 days (urgent) Where should this appointment be scheduled? [facility] Where is the wound? Below the knee Comments Assess for: Acute Infection (Please page Wound Care Service.) Reason for Visit * Reason Comments Wound Care RLE. Area present x 07/22/24. Encounter Details Date Type Department Care Team (Latest Contact Info) Description 07/25/2024 5:45 PM EDT [facility] Visit [facility] [address] [place] [address] Poornima London PA-C [address] [place] [address] Wound of right lower extremity, initial encounter* Allergies No known active allergiesdocumented as of this encounter (statuses as of 07/25/2024) Medications Medication Sig Dispensed Refills Start Date End Date Status Albuterol Sulfate (2.5 MG/3ML) 0.083% Inhalation Nebulization Solution (Proventil)Indicati ons:Bronchitis,Whee zing,Bronchitis, complicated One vial in nebulizer every 4 hours as needed for wheezing 3 mL 1 06/08/2021 Active Acetaminophen 325 MG Oral Tablet (Tylenol) Take 1 Tablet by mouth every 6 hours as needed for Pain, Mild. Active CPAP every night at bedtime . Active FreeStyle Maria Luz 2 Sensor Use as directed . 1 Each 06/27/2022 Active FreeStyle Maria Luz 2 Paisley Device Use as directed . 1 Each 06/27/2022 Active BD Insulin Syringe U/F 30G X 1/2" 0.3 ML (Insulin Syringe-Needle U-100)Indications:T ype 2 diabetes mellitus without complication (HCC),Type 2 diabetes mellitus without complication, with long-term current use of insulin (HCC) INJECT UNDER THE SKIN 4 TIMES A DAY 100 Each 2 06/06/2023 Active Droplet Pen [place] 31G X 5 MM (Insulin Pen Needle)Indications: Type 2 diabetes mellitus without complication, with long-term current use of insulin (HCC) inject subcutaneously four times a day 1000 Each 06/07/2023 Active OneTouch UltraSoft LancetsIndications: Type 2 diabetes mellitus without complication, unspecified whether group home insulin use (HCC) Use as directed 4 times a day as needed for Other (to check BS). Use up to four times a day as directed 100 Each 5 10/31/2023 Active ReliOn Premier Classic Device Use to test blood sugar as directed 12/24/2023 Active RA Melatonin 1 MG Sublingual Tablet Sublingual (Melatonin)Indicati ons:Insomnia, unspecified type take 1 tablet by mouth at bedtime if needed for insomnia 30 Tablet 5 12/24/2023 Active ReliOn Premier Test In Vitro Strip (Glucose Blood) Use to test blood sugar 4 times daily as directed 100 Strip 12/24/2023 Active Insulin Glargine Solostar 100 UNIT/ML Subcutaneous Solution Pen-injector (Basaglar KwikPen) Inject 15 units once daily at bedtime. Dx Code E 11.9 15 mL 3 01/16/2024 Active NovoLOG FlexPen 100 UNIT/ML Subcutaneous Solution Pen-injector (insulin aspart) Inject 12 units + scale three times a day with meals. Max of 20 units three times a day with meals. 15 mL 3 01/16/2024 Active Omeprazole 20 MG Oral Capsule Delayed Release (PriLOSEC)Indicatio ns:Gastroesophageal reflux disease without esophagitis take 1 capsule by mouth every morning 90 Capsule 1 06/01/2024 Active Bromfenac Sodium (Once-Daily) 0.09 % Ophthalmic Solution Instill 1 Drop into eye daily at noon. 2 mL 1 06/04/2024 Active Cyanocobalamin 1000 MCG Sublingual Tablet SublingualIndicatio ns:B12 [address] 1,000MCG UNDER THE TONGUE DAILY 90 Tablet 06/04/2024 Active Erythromycin 5 MG/GM Ophthalmic OintmentIndications :Rash and nonspecific skin eruption Instill into eye 4 times a day. Apply to affected eye(s) until redness and discharge resolved. 1 g 06/04/2024 Active Additional Information Patient not taking.Reported on 07/15/2024 Escitalopram Oxalate 10 MG Oral Tablet (Lexapro)Indication s:Episode of recurrent major depressive disorder, unspecified depression episode severity (HCC) Take 1 Tablet by mouth in the morning. In the morning.. 90 Tablet 06/04/2024 Active Fluticasone Propionate 50 MCG/ACT Nasal Suspension (Flonase)Indication s:Rhinosinusitis Administer 2 Sprays into each nostril in the morning. 1 Each 06/04/2024 Active Gabapentin 100 MG Oral Capsule (Neurontin) Take 2 Capsules by mouth in the morning and 2 Capsules at noon and 2 Capsules before bedtime. 90 Capsule 5 06/04/2024 Active hydrOXYzine HCl 25 MG Oral TabletIndications:E pisode of recurrent major depressive disorder, unspecified depression episode severity (HCC) Take 1 Tablet by mouth 3 times a day as needed for Anxiety. 90 Tablet 06/04/2024 Active Pregabalin 25 MG Oral Capsule (Lyrica)Indications :Type 2 diabetes mellitus with diabetic polyneuropathy, with long-term current use of insulin (HCC) Take 1 Capsule by mouth in the morning. 30 Capsule 06/04/2024 Active Simvastatin 20 MG Oral Tablet (Zocor) Take 1 Tablet by mouth every evening. 90 Tablet 1 06/04/2024 Active Vitamin D3 50 MCG (2000 UT) Oral CapsuleIndications: Vitamin D deficiency Take 1 Capsule by mouth in the morning. Every morning.. 90 Capsule 06/04/2024 Active Torsemide 20 MG Oral Tablet (Demadex) Take 3 Tablets by mouth in the morning. 90 Tablet 06/04/2024 Active Carvedilol 3.125 MG Oral Tablet (Coreg) Take 1 Tablet by mouth 2 times a day with morning and evening meals. 180 Tablet 3 06/04/2024 Active amLODIPine Besylate 5 MG Oral Tablet (Norvasc) Take 1 Tablet by mouth in the morning. 90 Tablet 3 06/04/2024 Active Vitamin B-12 1000 MCG Oral Tablet (Cyanocobalamin) PLACE 1,000MCG UNDER THE TONGUE DAILY 90 Tablet 3 06/06/2024 Active Ondansetron 4 MG Oral Tablet Disintegrating (Zofran)Indications :Nausea Place 1 Tablet on tongue every 8 hours as needed for Nausea. dissolve on tongue. 30 Tablet 1 06/09/2024 Active Multivitamin Adult Oral Tablet Take 1 tablet by mouth daily. 30 Tablet 3 06/09/2024 Active Silver sulfADIAZINE 1 % External Cream (Silvadene)Indicati ons:Wound of right lower extremity, initial encounter Apply topically to affected area daily. Apply to wound on RLE once daily with dressing changes. 85 g 1 07/25/2024 Active Sulfamethoxazole-Tr imethoprim 800-160 MG Oral Tablet (Bactrim DS)Indications:Woun d of right lower extremity, initial encounter Take 1 Tablet by mouth in the morning and 1 Tablet before bedtime. Do all this for 7 days. Until gone.. 14 Tablet 07/25/2024 4 Active Hospital, Clinic, or Other Facility Administered [...] IZ PRN 04/17/2024 04/17/2025 Active lidocaine-epinephrine 2 %-1:[id number] inj 6 mgIndications:Moderate nonproliferative diabetic retinopathy of both eyes with macular edema associated with type 2 diabetes mellitus (HCC),Optic nerve drusen, left,6th nerve palsy, right,Combined forms of age-related cataract of both eyes 6 mg IJ PRN 04/17/2024 04/17/2025 Active documented as of this encounter (statuses as of 07/25/2024) Active Problems Problem Noted Date Diagnosed Date [...] 10/26/2009 Dyslipidemia, goal LDL below 100 09/13/2009 Overview: Per Lipid Taxonomy. Rosacea 04/20/2008 ARTHRITIS -HANDS 07/21/2007 Major depressive disorder 07/15/2007 Overview: ICD-10 update of inactive term Restless leg syndrome SLEEP APNEA, UNSPECIFIED History of colonic polyps Overview: ICD-10 update of inactive term PPD positive documented as of this encounter (statuses as of 07/25/2024) Resolved Problems Problem Noted Date Diagnosed Date [...] weight or BMI > 40) 12/21/2009 01/03/2024 Overview: Per Obesity Taxonomy ICD-10 update of inactive term Morbid obesity, BMI not known 10/26/2009 12/21/2009 Overview: Per Obesity Taxonomy HTN, GOAL BELOW 130/80 08/17/200905/16 Overview: Modified per HTN protocol #16. Type 2 diabetes mellitus wit h hemoglobin A1c goal of less than 7.0% 07/08/2009 01/11/2016 Overview: Modified per Diabetes protocol #14. ICD-10 update of inactive term DM type 2, not at goal 09/30/200707/08 Overview: Modified per Diabetes protocol #14. Dyslipidemia, goal to be determined 09/13/2009 Overview: Per Lipid Taxonomy. HTN, goal to be determined 1 10/17/2008 Overview: Modified per HTN protocol #16. Obesity, BMI not known 12/21 Overview: Per Obesity Taxonomy documented as of this encounter (statuses as of 07/25/2024) Immunizations Name Administration Dates Next Due Covid-19 Ad26, Single Dose ([place]/J&J) 021 Hepatitis B, 20+ yrs 12/08/2014,03/31/2011,02/23 Pneumococcal Conjugate Vacci ne, 20-valent ([id number]) 06/06/2023 Pneumococcal Polysaccharide PPV23 (Pneumovax) 02/10/2011 Seasonal [...] No 01/22/2024 Does the household have a [facility] source of income? (Household - for [...] ages 0-17 years) Not on file 05/01/2024 Sex and Gender Information Value Date Recorded Sex Assigned at Not on file Gender Identity Not on file Sexual Orientation Not on file Job Start Date Occupation Industry Not on file Not on file Not on file documented as of this encounter Last Filed Vital Signs Vital Sign Reading Time Taken Comments Blood Pressure 133/67 07/25/2024 5:37 PM EDT Pulse 60 07/25/2024 5:37 PM EDT Temperature 36.3 °C (97.4 °F) 07/25/2024 5 :37 PM EDT Respiratory Rate 22 07/25/2024 5:37 PM EDT Oxygen Saturation 91% 07/25/2024 5:3 8 PM EDT 2L/Min via Nasal canula. Inhaled Oxygen Concentration - - Weight - - Height - - Body Mass Index - - documented in this encounter Functional Status Functional Status Response Date of Assess ment Are you deaf or do you have serious difficulty h earing? No 05/01/2024 Are you blind or do you have serious difficulty seeing, even when wearing glasses? No 05/01/2024 Do you have serious difficul ty walking or climbing stairs? (5 years old or older) No 05/01/2024 Do you have difficulty dress ing or bathing? (5 years old or older) No 05/01/2024 Because of a physical, menta l, or emotional condition, do you have difficulty doing errands alone such as visiting a doctor s office or shopping? (15 years old or older) No 05/01/20 Cognitive Status Response Date of Assessm ent Because of a physical, menta l, or emotional condition, do you have serious difficulty concentrating, remembering, or making decisions? (5 years old or older) No 05/01/2024 documented as of this encounter Progress Notes * Poornima London PA-C - 07/25/2024 5:07 PM EDT Images from the original note were not included. Meera Mcgraw is a 69 year old female. Nursing Notes: Gian Ruiz LPN 07/25/24 1748 Signed Meera Mcgraw 1955 verbalized for verification. Patient is accompanied by no one for today's visit. Meera Mcgraw is a 69 year old female who presents today for Chief Complaint Patient presents with Wound Care RLE. Area present x 07/22/24. HPI Patient presents to the clinic today for evaluation of above Patient accompanied by: self, son in car Patient seen at 5:55 PM C/o above symptoms x 3-4 days and staying the same since onset Location: R lower leg No known injury/trauma Symptoms include pain, swelling, drainage Patient denies f/c/s, increased sob Has been changing dressings once daily at home Has upcoming appt with wound care 07/31 States she was told she could be seen earlier if urgent referral placed +DM2 Last A1C 7.4 on 05/01/24 Serum creatinine: 1.5 mg/dL (H) 05/27/24 0800 Estimated creatinine clearance: 45 mL/min (A) O2 on room air 81%, pt states this is her baseline. Increased to 91% on 2L O2. On O2 at home, did not bring it with her Has home health through [facility], usually comes 1x/week Pt requesting note for them to come on Robert 11/4, note printed and given to patient ROS See HPI for pertinent positives and negatives. No additional complaints upon questioning. HISTORY Patient Active Problem List Diagnosis Restless leg syndrome SLEEP APNEA, UNSPECIFIED History of colonic polyps PPD positive Major depressive disorder ARTHRITIS -HANDS Rosacea Dyslipidemia, goal LDL below 100 Vitamin deficiency Tobacco use disorder HTN, goal below 140/90 DDD (degenerative disc disease), lumbar Type 2 diabetes mellitus with diabetic polyneuropathy, with long-term current use of insulin ([facility]) Right abducens nerve palsy Lesion of bone of cervical spine BMI 40.0-44.9, adult ([facility]) Anxiety state Choledocholithiasis Chronic respiratory failure with hypoxia and hypercapnia ([facility]) Moderate nonproliferative diabetic retinopathy of both eyes with macular edema associated with type2 diabetes mellitus ([facility]) Acute respiratory failure with hypercapnia ([facility]) Food insecurity Chronic kidney disease with symptom management only, stage 3 (moderate) ([facility]) COPD, group C, by GOLD 2017 classification ([facility]) Onychomycosis of nail of digit of hand Acute renal failure superimposed on stage 3b chronic kidney disease ([facility]) Chronic kidney disease, stage 4 (severe) ([facility]) Current Outpatient Medications Medication Sig Dispense Refill Silver sulfADIAZINE 1 % External Cream (Silvadene) Apply topically to affected area daily. Apply towound on RLE once daily with dressing changes. 85 g 1 Sulfamethoxazole-Trimethoprim 800-160 MG Oral Tablet (Bactrim DS) Take 1 Tablet by mouth in the morning and 1 Tablet before bedtime. Do all this for 7 days. Until gone.. 14 Tablet 0 Albuterol Sulfate (2.5 MG/3ML) 0.083% Inhalation Nebulization Solution (Proventil) One vial in nebulizer every 4 hours as needed for wheezing 3 mL 1 Acetaminophen 325 MG Oral Tablet (Tylenol) Take 1 Tablet by mouth every 6 hours as needed for Pain,Mild. CPAP every night at bedtime . FreeStyle Maria Luz 2 Sensor Use as directed . 1 Each 0 FreeStyle Maria Luz 2 Paisley Device Use as directed . 1 Each 0 BD Insulin Syringe U/F 30G X 1/2" 0.3 ML (Insulin Syringe-Needle U-100) INJECT UNDER THE SKIN 4 TIMES A DAY 100 Each 2 Droplet Pen [place] 31G X 5 MM (Insulin Pen Needle) [...] Dx Code E 11.9 15 mL 3 NovoLOG FlexPen 100 UNIT/ML [...] eye daily at noon. 2 mL 1 Cyanocobalamin 1000 MCG Sublingual Tablet Sublingual PLACE 1,000MCG UNDER THE TONGUE DAILY 90 Tablet 1 Erythromycin 5 MG/GM Ophthalmic Ointment Instill into eye 4 times a day. Apply to affected eye(s) until redness and discharge resolved. (Patient not taking: Reported on 07/15/2024) 1 g 0 Escitalopram Oxalate 10 MG Oral Tablet (Lexapro) [...] as needed for Anxiety. 90 Tablet 1 Pregabalin 25 MG Oral Capsule (Lyrica) Take 1 Capsule by mouth in the morning. 30 Capsule 0 Simvastatin 20 MG Oral Tablet (Zocor) Take 1 Tablet by mouth every evening. 90 Tablet 1 Vitamin D3 50 MCG (2000 UT) Oral Capsule Take 1 Capsule by mouth in the morning. Every morning.. 90Capsule 1 Torsemide 20 MG Oral Tablet (Demadex) Take 3 Tablets by mouth in the morning. 90 Tablet 11 Carvedilol 3.125 MG Oral Tablet (Coreg) Take 1 Tablet by mouth 2 times a day with morning and evening meals. 180 Tablet 3 amLODIPine Besylate 5 MG Oral Tablet (Norvasc) Take 1 Tablet by mouth in the morning. 90 Tablet 3 Vitamin B-12 1000 MCG Oral Tablet (Cyanocobalamin) PLACE 1,000MCG UNDER THE TONGUE DAILY 90 Tablet 3 Ondansetron 4 MG Oral Tablet Disintegrating (Zofran) Place 1 Tablet on tongue every 8 hours as needed for Nausea. dissolve on tongue. 30 Tablet 1 Multivitamin Adult Oral Tablet Take 1 tablet by mouth daily. 30 Tablet 3 Current Facility-Administered Medications Medication Dose Route Frequency Provider Last Rate Last Admin Aflibercept (Eylea) intraviteal prefilled syringe 2 mg 2 mg Intravitreal PRN 2 mg at 07/15/24 09 Aflibercept (Eylea) intraviteal prefilled syringe 2 mg 2 mg Intravitreal PRN 2 mg at 07/15/24 0901 lidocaine-epinephrine 2 %-1:[id number] inj 6 mg 0.3 mL Injection PRN 6 mg at 07/15/24 0903 Review of patient's allergies indicates: No Known Allergies Past Medical History: Diagnosis Date Acute appendicitis 01/29/2017 Acute respiratory failure with hypoxia and hypercapnia ([facility]) 06/19/2022 Chronic venous hypertension with ulcer ([facility]) 05/05/2022 Controlled substance agreement signed 01/28/2017 COPD exacerbation ([facility]) 12/26/2015 COPD, severity to be determined ([facility]) 12/26/2015 Diabetic retinopathy of right eye associated with type 2 diabetes mellitus ([facility]) 06/08/2021 Dyslipidemia 12/26/2015 Dyslipidemia, goal to be determined Gastroesophageal reflux disease without esophagitis 05/04/2023 Heart failure, diastolic, with acute decompensation ([facility]) 06/19/2022 Heart failure, diastolic, with acute decompensation ([facility]) 2023-10-28 Adding I50.33-Heart failure, diastolic, with acute decompensation ([facility]) Dx to History HTN, goal below 140/90 11/07/2014 HTN, goal to be determined Hypoxia 12/26/2015 Influenza A 12/29/2015 Kidney disease, chronic, stage III (GFR 30-59 ml/min) ([facility]) 06/28/2022 Major depressive disorder 07/15/2007 ICD-10 update [...] long-term current use of insulin (HCC) 12/10/2019 Past Surgical History: Procedure Laterality Date AFLIBERCEPT IO SOLN, PER 1MG, INJ Bilateral 04/17/2024 Eylea # 1 OU / Dr. Moss AFLIBERCEPT IO SOLN, PER 1MG, INJ Bilateral 05/20/2024 Eylea #2 OU, Dr. Gordon BEVACIZUMAB INJECTION Right 01/25/2017 Avastin # 1 OD / Dr. Brown / New Consent BEVACIZUMAB INJECTION Right 07/10/2023 Avastin # 2 OD / Dr. Msos *New Consnt* BEVACIZUMAB INJECTION Left 07/10/2023 Avastin # 1 OS / Dr. Moss *New Consent* CARPAL TUNNEL SYN 1995 on right ERCP, DIAGNOSTIC, SPECIMEN COLLECTION 05/08/2023 ENDOSCOPIC RETROGRADE CHOLANGIOPANCREATOGRAPHY (ERCP) DIAGNOSTIC performed by Scotty Pearson DO at ENDOSCOPY [facility] FLUORESCEIN ANGIOGRAPHY MULTIFRAME 01/12/2017 OD > OS / Dr. Brown FX/DIS,RADIAL,OPN,INTRAARTIC,INT FIX,[address] Savage INJECTION OF EYE DRUG Bilateral 07/15/2024 Eylea OU # 3 Dr Gordon IR ASPIRATION ABSCESS/COLLECTION 05/07/2023 IR PROCEDURE NOT PERFORMED DOCUMENTATION ONLY 05/07/2023 LAPAROSCOPY;APPENDECTOMY N/A 01/28/2017 LAPAROSCOPIC APPENDECTOMY performed by West Newell MD at OR [facility] ER PARTIAL REMOVAL OF COLON 2000 left hemicolectomy, polyps REMOVE TONSILS & ADENOIDS, UNDER 12 Family History Problem Relation Name Age of Onset Cancer Mother breast Obesity Father Obesity Brother sleep apnea Social History Socioeconomic History Marital status: Spouse name: mary Number of children: 1 Years of education: 18 Highest education level: Not on file Occupational History 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 Tobacco Use Smoking status: Former Current packs/day: 0.00 Average packs/day: 0.1 packs/day for 3.0 years (0.4 ttl pk-yrs) Types: Cigarettes Start date: 03/08/2019 Quit date: 03/08/2022 Years since quittin.3 Smokeless tobacco: Never Tobacco comments: smoked in college also Vaping Use Vaping status: Never Used Substance and Sexual Activity Alcohol use: Yes Comment: rarely Drug use: No Sexual activity: Yes Partners: Male Other Topics Concern Not on file Social History Narrative Not on file Social Determinants of Health Financial Resource Strain: High Risk (01/22/2024) Financial [...] - for ages0-17 years): Not on file OBJECTIVE Filed Vitals: 07/25/24 1737 07/25/24 173 BP: 133/67 Pulse: 60 Resp: 22 Temp: 36.3 °C (97.4 °F) TempSrc: Tympanic SpO2: 81% 91% There is no height or weight on file to calculate BMI. BP Readings from Last 3 Encounters: 07/25/24 133/67 06/17/24 96/44 06/09/24 120/80 PHYSICAL EXAM General: awake, alert, cooperative, pleasant, no apparent distress Eyes: b/l conjunctivae clear with no drainage, no periorbital erythema or edema, no ptosis Lungs: no cough during exam, respiratory rate and effort wnl, no audible wheezing or respiratory distress Skin: +R lower leg with large superficial unroofed blister, +mild serous drainage, +moderate surrounding erythema/warmth/ttp, no streaking erythema, sensation grossly in tact ASSESSMENT/PLAN Wound of right lower extremity, initial encounter (Primary) - Silver sulfADIAZINE 1 % External Cream (Silvadene); Apply topically to affected area daily. Applyto wound on RLE once daily with dressing changes. - WOUND CARE REFERRAL OP - Sulfamethoxazole-Trimethoprim 800-160 MG Oral Tablet (Bactrim DS); Take 1 Tablet by mouth in the morning and 1 Tablet before bedtime. Do all this for 7 days. Until gone.. - CULTURE, WOUND, SUPERFICIAL, AEROBIC - Keep area clean/dry - no peroxide/harsh cleansers - Wound care instructions discussed with patient Patient instructed to contact PCP for follow-up within 48-72 hours if symptoms persist. To ED if worsening redness, pain, high fevers/shaking chills. Patient participated in shared decision making during visit and is agreeable with assessment/plan. Denies any questions/concerns at time of visit. Medication instructions and possible side effects were reviewed; patient verbalizes understanding and agreement of the visit, course of treatment, and instructions. Thoroughly discussed alarm signs/symptoms that would indicate need for follow up or emergent care/treatment. Reinforced importance of routine preventative care with primary care physician. Poornima London PA-C [facility] [address] [place] [id number] documented in this encounter Nursing Notes * Gian Ruiz LPN - 07/25/2024 5:36 PM EDT Meera Mcgraw 1955 verbalized for verification. Patient is accompanied by no one for today's visit. Meera Mcgraw is a 69 year old female who presents today for Chief Complaint Patient presents with Wound Care RLE. Area present x 07/22/24. documented in this encounter Plan of Treatment Upcoming Encounters Date Type Department Care Team (Late st Contact Info) Description 07/31/2024 9:20 AM EST Office Visit Wound Care Angie Teran [address] [id number] Paul Peng DO [address] [address] 07/31/2024 12:30 PM EST Office Visit Pulmonary Medicine [facility] [address] [facility] [place] [phone] Johanny Hutton CRNP [address] [facility] [place] [address] 08/19/2024 12:15 PM EST Office Visit Ophthalmology [facility] [address] [place] [address] Washington Gordon MD [address] [address] 10/28/2024 1:30 PM EST Office Visit Ophthalmology [facility] [address] [place] [address] Washington Gordon MD [address] [address] 12/15/2024 4:20 PM EDT [facility] [address] [facility] [place] [phone] Elie Dixon MD [address] [facility] [place] [address] 12/23/2024 10:30 AM EDT Office Visit Ophthalmology [facility] [address] [place] [id number] Archana Nava MD [address] [place] [address] 12/24/2024 10:30 AM EDT [facility] [address] [facility] [place] [address] Angela Briggs CRNP [address] [facility] [place] [address] 01/22/2025 1:15 PM EDT Imaging Radiology [address] [address] Pending Results Name Type Priority Associated Diagnoses Date /Time CULTURE, WOUND, SUPERFICIAL, AEROBIC Lab Routine Wound of right lower extremity, initial encounter 07/25/2024 6:39 PM EDT Scheduled Referrals Name Type Priority Associated Diagnoses Orde r Schedule WOUND CARE REFERRAL OP Referral Within 3 days (urgent) Wound of right lower extremity, initial encounter Ordered: 07/25/2024 Health Maintenance Due Date Last Done Comments [...] this encounter Medical Devices Implanted Type Area Armed Guard Device Identifier Shelf Expiration Date Model / Serial / Lot Cath Drainage 10fr [facility]-10-038 - [id number] Implanted:Qty : 1 on 05/07/2023 at [facility] Right: Abdomen [employer] [facility] [id number] 02/15/2026 [facility]-10-03 8 / / [id number] documented as of this encounter Visit Diagnoses Diagnosis Wound of right lower extremity, initial encounter- Primary documented in this encounter Additional Health [...] Advance Directives occurred with: Patient Care Teams Proof Reader Relationship Specialty Start Date End Date Denis Urbina MD [address] [place] [address] PCP - General Family Medicine 04/17/22 documented as of this encounter
--- OUTSIDE RECORDS SUMMARY | 2025-01-09 05:39 | External Medical Summary | Summary of Care ---
Author Name Unknown Organization [facility] Address [address] [facility] [address] Phone [phone] Care Team Providers Care Hvac Instructor Name Role Phone Denis Urbina MD Primary Care Provider [phone] Reason for Visit * Reason Onset Date Comments Appointment 08/11/2024 Encounter Details Date Type Department Care Team (Late st Contact Info) Description 08/11/2024 Telephone Wound Care Angie Teran [address] [place] [address] Paul Peng, [address] [address] Appointment Allergies No known active allergiesdocumented as of this encounter (statuses as of 08/11/2024) Medications Albuterol Sulfate (2.5 MG/3ML) 0.083% Inhalation [...] 06/27/20 22 Active FreeStyle Maria Luz 2 [place] Device Use as directed . 1 Each 06/27/20 22 Active BD Insulin Syringe U/F 30G X 1/2" 0.3 ML (Insulin Syringe-Needle U-100)Indications: Type 2 diabetes mellitus without complication (HCC),Type 2 diabetes mellitus without complication, with long-term current use of insulin (HCC) INJECT UNDER THE SKIN 4 TIMES A DAY 100 Each 2 06/06/20 23 Active Droplet Pen [place] 31G X 5 MM (Insulin Pen Needle)Indications [...] IZ PRN 04/17/2024 04/17/2025 Active lidocaine-epinephrine 2 %-1:004391 inj 6 mgIndications:Moderate nonproliferative diabetic retinopathy of both eyes with macular edema associated with type 2 diabetes mellitus (HCC),Optic nerve drusen, left,6th nerve palsy, right,Combined forms of age-related cataract of both eyes 6 mg IJ PRN 04/17/2024 04/17/2025 Active documented as of this encounter (statuses as of 08/11/2024) Active Problems Problem Noted Date Diagnosed Date [...] as of this encounter (statuses as of 08/11/2024) Resolved Problems Problem Noted Date Diagnosed Date [...] as of this encounter (statuses as of 08/11/2024) Immunizations Name Administration Dates Next Due Covid-19 Ad26, Single Dose (Alona/J&J) 021 Hepatitis B, 20+ yrs 12/08/2014,03/31/2011,02/23 Pneumococcal Conjugate Vacci ne, 20-valent ([id number]) 06/06/2023 Pneumococcal Polysaccharide PPV23 (Pneumovax) 02/10/2011 Seasonal [...] Assessment Author No 05/01/2024 5:23 PM Oswaldo Dill, RN * Because of a physical, mental, [...] encounter Miscellaneous Notes * Telephone Encounter - Maris Russo OSA - 08/11/2024 9:48 AM EST Left message for patient that Dr. Peng is not here and appointment needed to be rescheduled. Gave number to call center to reschedule this appointment. documented in this encounter Plan of Treatment Upcoming Encounters Date Type Department Care Team ([facility] st Contact Info) Description 08/19/2024 12:15 PM EST Office Visit Ophthalmology [facility] [address] [place] [address] Washington Gordon MD [address] [place] [address] 10/28/2024 1:30 PM EST Office Visit Ophthalmology [facility] [address] [place] [address] Washington Gordon MD [address] [place] [address] 12/15/2024 4:20 PM EDT [facility] [address] [place] [address] Elie Dixon MD [address] [place] [address] 12/23/2024 10:30 AM EDT Office Visit Ophthalmology [facility] [address] [place] [address] [place] [address] [place] [address] 12/24/2024 10:30 AM EDT [facility] [address] [place] [address] Angela Briggs CRNP [address] [place] [address] 01/22/2025 1:15 PM EDT Imaging Radiology [facility] [address] [place] [address] Health Maintenance Due Date Last Done Comments [...] this encounter Medical Devices Implanted Type Area Screen Printer Helper Device Identifier Shelf Expiration Date Model / Serial / Lot Cath Drainage 10fr [facility]-10-038 - [id number] Implanted:Qty : 1 on 05/07/2023 at [facility] Right: Abdomen [facility] [employer] [facility] [id number] 02/15/2026 [facility]-10-03 8 / / [id number] documented as of this encounter Additional Health [...] Advance Directives occurred with: Patient Care Teams Hvac Instructor Relationship Specialty Start Date End Date Denis Urbina MD [address] [place] [address] PCP - General Family Medicine 04/17/22 documented as of this encounter
--- OUTSIDE RECORDS SUMMARY | 2025-01-09 05:39 | External Medical Summary | Summary of Care ---
Author Name Unknown Organization [facility] Address [address] [place] [address] Phone [phone] Care Team Providers Care Technology Coach Name Role Phone Denis Urbina MD Primary Care Provider [phone] Reason for Visit * Reason Onset Date Comments Scheduling 04/01/2024 Encounter Details Date Type Department Care Team (Late st Contact Info) Description 04/01/2024 Telephone Sleep Lab, [facility] [address] [place] [address] Swb, Sleep Med Day Study [address] [place] [address] Scheduling Allergies No known active allergiesdocumented as of this encounter (statuses as of 08/03/2024) Medications Albuterol Sulfate (2.5 MG/3ML) 0.083% Inhalation Nebulization Solution (Proventil)Lily cations:Bronchi tis,Wheezing,Br onchitis, complicated One vial in nebulizer every 4 hours as needed for wheezing 3 mL 1 Active Acetaminophen 325 MG Oral Tablet (Tylenol) Take 1 Tablet by mouth every 6 hours as needed for Pain, Mild. Active CPAP every night at bedtime . Active FreeStyle Maria Luz 2 Sensor Use as directed . 1 Each 022 Active FreeStyle Maria Luz 2 [place] Device Use as directed . 1 Each 022 Active BD Insulin Syringe U/F 30G X 1/2" 0.3 ML (Insulin Syringe-Needle U-100)Indicatio ns:Type 2 diabetes mellitus without complication (HCC),Type 2 diabetes mellitus without complication, with long-term current use of insulin (HCC) INJECT UNDER THE SKIN 4 TIMES A DAY 100 Each 2 023 Active Droplet Pen [place] 31G X 5 MM (Insulin Pen Needle)Indicati ons:Type 2 diabetes mellitus without complication, with long-term current use of insulin (HCC) inject subcutaneously four times a day 1000 Each 023 Active OneTouch UltraSoft LancetsIndicati ons:Type 2 diabetes mellitus without complication, unspecified whether timber hewer insulin use (HCC) Use as directed 4 times a day as needed for Other (to check BS). Use up to four times a day as directed 100 Each 5 024 Active ReliOn Premier Classic Device Use to test blood sugar as directed Active RA Melatonin 1 MG Sublingual Tablet Sublingual (Melatonin)Lily cations:Insomni a, unspecified type take 1 tablet by mouth at bedtime if needed for insomnia 30 Tablet 5 Active ReliOn Premier Test In Vitro Strip (Glucose Blood) Use to test blood sugar 4 times daily as directed 100 Strip Active Insulin Glargine Solostar 100 UNIT/ML Subcutaneous Solution Pen-injector (Basaglar KwikPen) Inject 15 units once daily at bedtime. Dx Code E 11.9 15 mL 3 Active NovoLOG FlexPen 100 UNIT/ML Subcutaneous Solution Pen-injector (insulin aspart) Inject 12 units + scale three times a day with meals. Max of 20 units three times a day with meals. 15 mL 3 024 Active Fluticasone Propionate 50 MCG/ACT Nasal Suspension (Flonase)Indica tions:Rhinosinu sitis Administer 2 Sprays into each nostril in the morning. 1 Each 5 023 2023 Discontinued(R efill) tiZANidine HCl 4 MG Oral Tablet (Zanaflex) TAKE 1 TABLET BY MOUTH AT BEDTIME AND 1/4 TO 1 TABLET EVERY 8 HOURS NEEDED 90 Tablet 024 2023 Discontinued(M edication List Clean Up) Escitalopram Oxalate 10 MG Oral Tablet (Lexapro)Indica tions:Episode of recurrent major depressive disorder, unspecified depression episode severity (HCC) take 1 tablet by mouth every morning 90 Tablet 1 024 2023 Discontinued(R efill) Simvastatin 20 MG Oral Tablet (Zocor) take 1 tablet by mouth IN THE EVENING 90 Tablet 1 024 2023 Discontinued(R efill) Omeprazole 20 MG Oral Capsule Delayed Release (PriLOSEC)Indic ations:Gastroes ophageal reflux disease without esophagitis take 1 capsule by mouth every morning 90 Capsule 1 024 2023 Discontinued Gabapentin 100 MG Oral Capsule (Neurontin) Take 2 Capsules by mouth in the morning and 2 Capsules at noon and 2 Capsules before bedtime. 90 Capsule 5 024 2023 Discontinued(R efill) Ibuprofen 200 MG Oral Tablet (Motrin) As needed 024 2023 Discontinued Cyanocobalamin 1000 MCG Sublingual Tablet SublingualIndic ations:B12 [address] 1,000MCG UNDER THE TONGUE DAILY 90 Tablet 1 024 2023 Discontinued(R efill) Sphygmomanomete rIndications:Es sential hypertension with goal blood pressure less than 130/80 Check blood pressure regularly at home. 1 Each 024 2023 Discontinued(M edication List Clean Up) Carvedilol 3.125 MG Oral Tablet (Coreg)Indicati ons:HTN, goal below 140/90 Take 1 Tablet by mouth 2 times a day with morning and evening meals. 60 Tablet 024 2023 Discontinued(M edication List Clean Up) Cephalexin 250 MG Oral CapsuleIndicati ons:Cat scratch Take 1 Capsule by mouth in the morning and 1 Capsule at noon and 1 Capsule before bedtime. Do all this for 10 days. 30 Capsule 024 2023 Discontinued Vitamin D3 50 MCG (2000 UT) Oral Capsule (Cholecalcifero l)Indications:V itamin D deficiency take 1 capsule by mouth every morning 90 Capsule 1 024 2023 Discontinued(R efill) DIURETIC TITRATION PLAN If no improvement on day 3, contact heart failure managing provider. 12 Each 024 2023 Discontinued DIURETIC TITRATION PLAN Take 20 mg by mouth as needed for Shortness of Breath (weight gain, OB or swelling, extremities or abdomen). If no improvement on day 3, contact heart failure managing provider. Double Torsemide x 3 days as directed 24 Each 3 2023 Discontinued Torsemide 20 MG Oral Tablet (Demadex) Take 1 Tablet by mouth as needed for Dyspnea (Take 1 extra tablet as needed for shortness of breath, swelling, or weight gain for 3 days as directed by cardiology). Take 1 extra tablet in addition to regular dose of Torsemide for symptoms of CHF as directed by cardiology provider 24 Tablet 6 2023 Discontinued Torsemide 20 MG Oral Tablet (Demadex) Take 1 Tablet by mouth daily. May also take 1 Tablet daily as needed for Dyspnea (shortness of breath, swelling or weight gain). 60 Tablet 6 024 2023 Discontinued Torsemide 20 MG Oral Tablet (Demadex) Take 2 Tablets by mouth in the morning. 34 Tablet 11 2023 Discontinued(M edication List Clean Up) Torsemide 20 MG Oral Tablet (Demadex)Indica tions:Bilateral lower extremity pain Take 2 Tablets by mouth in the morning. 60 Tablet 11 2023 Discontinued Bromfenac Sodium (Once-Daily) 0.09 % Ophthalmic Solution Instill 1 Drop into eye daily at noon. 2 mL 1 2023 Discontinued(R efill) Cephalexin 250 MG Oral Capsule Take 1 Capsule by mouth in the morning and 1 Capsule at noon and 1 Capsule before bedtime. Do all this for 10 days. 30 Capsule 024 2023 Discontinued hydrOXYzine HCl 25 MG Oral TabletIndicatio ns:Episode of recurrent major depressive disorder, unspecified depression episode severity (HCC) take 1 tablet by mouth three times a day if needed for anxiety 90 Tablet 1 2023 Discontinued(R efill) Hospital, Clinic, or Other Facility Administered Medication Ordered Dose Route Frequency Start Date End Date Status bevaCIZumab (Avastin) inj 1.25 mgIndications:Moderate nonproliferative diabetic retinopathy of both eyes with macular edema associated with type 2 diabetes mellitus (HCC),Optic nerve drusen, left,6th nerve palsy, right,Combined forms of age-related cataract of both eyes 1.25 mg IZ PRN 07/10/2023 07/09/2024 Ended lidocaine-epinephrine 2 %-1:939114 inj 6 mgIndications:Moderate nonproliferative diabetic retinopathy of both eyes with macular edema associated with type 2 diabetes mellitus (HCC),Optic nerve drusen, left,6th nerve palsy, right,Combined forms of age-related cataract of both eyes 6 mg IJ PRN 07/10/2023 07/09/2024 Ended documented as of this encounter (statuses as of 08/03/2024) Active Problems Problem Noted Date Diagnosed Date [...] as of this encounter (statuses as of 08/03/2024) Resolved Problems Problem Noted Date Diagnosed Date [...] as of this encounter (statuses as of 08/03/2024) Immunizations Name Administration Dates Next Due Covid-19 Ad26, Single Dose (Alona/J&J) 021 Hepatitis B, 20+ yrs 12/08/2014,03/31/2011,02/23 Pneumococcal Conjugate Vacci ne, 20-valent ([id number]) 06/06/2023 Pneumococcal Polysaccharide PPV23 (Pneumovax) 02/10/2011 Seasonal [...] hearing? Answer Date of Assessment Author No 12/06/2023 11:21 PM Monica Hurtado RN * Are you blind or do you have serious difficulty seeing, even when wearing glasses? Answer Date of Assessment Author Yes 12/06/2023 11:21 PM EDT [place], Monica, RN * Do you have serious difficulty walking or climbing stairs? (5 years old or older) Answer Date of Assessment Author Yes 12/06/2023 11:21 PM EDT Monica Sanchez RN * Do you have difficulty dressing or bathing? (5 years old or older) Answer Date of Assessment Author No 12/06/2023 11:21 PM EDT Monica Sanchez RN * Because of a physical, mental, or emotional condition, do you have difficulty doing errands alone such as visiting a doctor’s office or shopping? (15 years old or older) Answer Date of Assessment Author Yes 12/06/2023 11:21 PM EDT Monica Sanchez RN documented as of this encounter Mental Status * Because of a physical, mental, or emotional condition, do you have serious difficulty concentrating, remembering, or making decisions? (5 years old or older) Answer Entry Date Author No 12/06/2023 11:21 PM EDT Monica Sanchez RN documented in this encounter Miscellaneous Notes * Telephone Encounter - Braxton Elizalde MD - 08/03/2024 7:52 AM EST Patient has RF. Please schedule her in follow-up for myself or with Johanny, please. Thank you. * Telephone Encounter - Abdias [place] RPSGT - 08/01/2024 2:20 PM EST [facility] reaching out for follow-up notes and signatures for ongoing oxygen use. Is patient to follow in sleep or in RF for these services? * Telephone Encounter - Pauline Mondragon OSA - 04/30/2024 1:36 PM EDT Lm with family to have pt call back she needs 2nd study with a CPAP/tcco2 * Telephone Encounter - Abdias [place] RPSGT - 04/08/2024 12:31 PM EDT Message from [employer] states patient is already on a ventilator at home for respiratory failure. * Telephone Encounter - Rosana Joe OSA - 04/01/2024 2:55 PM EDT Brother to have pt call back * Telephone Encounter - Abdias [place] RPSGT - 04/01/2024 8:21 AM EDT Optimal setting not found on split study 03/26. Please schedule BiPAP titration with TcCO2 monitoringper Dr. Griffin. documented in this encounter Plan of Treatment Upcoming Encounters Date Type Department Care Team (Late st Contact Info) Description 08/04/2024 3:00 PM EST Office Visit Wound Care Angie Teran [address] [address] Paul Peng, [address] [address] 08/19/2024 12:15 PM EST Office Visit Ophthalmology [facility] [address] [place] [address] Washington Gordon MD [address] [place] [address] 10/28/2024 1:30 PM EST Office Visit Ophthalmology [facility] [address] [place] [address] Washington Gordon MD [address] [place] [address] 12/15/2024 4:20 PM EDT Office Visit Nephrology [facility] [address] [place] [facility] [place] [address] Elie Dixon MD [address] [place] [facility] [place] [address] 12/23/2024 10:30 AM EDT Office Visit Ophthalmology [facility] [address] [place] [address] Archana Nava MD [address] [place] [address] 12/24/2024 10:30 AM EDT Office Visit Cardiology [facility] [address] [facility] [place] [address] Angela Briggs CRNP [address] [place] [facility] [place] [address] 01/22/2025 1:15 PM EDT Imaging Radiology [facility] [address] [place], [place] [address] Health Maintenance Due Date Last Done Comments [...] this encounter Medical Devices Implanted Type Area Forensic Specialist Device Identifier Shelf Expiration Date Model / Serial / Lot Cath Drainage 10fr [facility]-10-038 - [id number] Implanted:Qty : 1 on 05/07/2023 at [facility] Right: Abdomen [employer] [id number] 02/15/2026 [facility]-10-03 8 / / [id number] documented as of this encounter Additional Health [...] Advance Directives occurred with: Patient Care Teams Technology Coach Relationship Specialty Start Date End Date Denis Urbina MD [address] [place] [address] PCP - General Family Medicine 04/17/22 documented as of this encounter
--- OUTSIDE RECORDS SUMMARY | 2025-01-09 05:39 | External Medical Summary | Summary of Care ---
Author Name Unknown Organization [facility] Address [address] [place] [address] Phone [phone] Care Team Providers Care Multimedia Coordinator Name Role Phone Denis Urbina MD Primary Care Provider + [phone] Reason for Visit * Reason Onset Date Comments Scheduling 04/01/2024 Encounter Details Date Type Department Care Team (Late st Contact Info) Description 04/01/2024 Telephone Sleep Lab, [facility] [address] [place] [address] Swb, Sleep Med Day Study [address] [place] [address] Scheduling Allergies No known active allergiesdocumented as of this encounter (statuses as of 08/01/2024) Medications Albuterol Sulfate (2.5 MG/3ML) 0.083% Inhalation [...] Each 022 Active FreeStyle Maria Luz 2 [place] Device Use as directed . 1 Each 022 Active BD Insulin Syringe U/F 30G X 1/2" 0.3 ML (Insulin Syringe-Needle U-100)Indicatio ns:Type 2 diabetes mellitus without complication (HCC),Type 2 diabetes mellitus without complication, with long-term current use of insulin (HCC) INJECT UNDER THE SKIN 4 TIMES A DAY 100 Each 2 023 Active Droplet Pen [place] 31G X 5 MM (Insulin Pen Needle)Indicati [...] IZ PRN 07/10/2023 07/09/2024 Ended lidocaine-epinephrine 2 %-1:523560 inj 6 mgIndications:Moderate nonproliferative diabetic retinopathy of both eyes with macular edema associated with type 2 diabetes mellitus (HCC),Optic nerve drusen, left,6th nerve palsy, right,Combined forms of age-related cataract of both eyes 6 mg IJ PRN 07/10/2023 07/09/2024 Ended documented as of this encounter (statuses as of 08/01/2024) Active Problems Problem Noted Date Diagnosed Date [...] as of this encounter (statuses as of 08/01/2024) Resolved Problems Problem Noted Date Diagnosed Date [...] as of this encounter (statuses as of 08/01/2024) Immunizations Name Administration Dates Next Due Covid-19 Ad26, Single Dose (Alona/J&J) 021 Hepatitis B, 20+ yrs 12/08/2014,03/31/2011,02/23 Pneumococcal Conjugate Vacci ne, 20-valent ([id number]) 06/06/2023 Pneumococcal Polysaccharide PPV23 (Pneumovax) 02/10/2011 Seasonal [...] encounter Miscellaneous Notes * Telephone Encounter - Abdias [place] RPSGT - 08/01/2024 2:20 PM EST [facility] reaching out for follow-up notes and signatures [...] Wound Care Angie Teran [address] [place] [address] [address] Paul Peng, DO [address] [place] [address] [address] 08/19/2024 12:15 PM EST Office Visit Ophthalmology [facility] [address] [place] [address] Washington Gordon MD [address] [facility] [address] [place] [address] 10/28/2024 1:30 PM EST Office Visit Ophthalmology [facility] [address] [place] [address] Washington Gordon MD [address] [place] [address] 12/15/2024 4:20 PM EDT Office Visit Nephrology [facility]ANDA [address] [place] [address] Elie Dixon MD [address] [place] [address] 12/23/2024 10:30 AM EDT Office Visit Ophthalmology [facility] [address] [place] [address] Archana Nava MD [address] [place] [address] 12/24/2024 10:30 AM EDT Office Visit Cardiology [facility] [address] [facility] [place] [address] Angela Briggs, POTASH FLAKER [address] [place] [address] 01/22/2025 1:15 PM EDT Imaging Radiology [facility] [address] [place] [address] Health Maintenance Due Date Last Done Comments [...] 12/26/2023, Additional history exists GFR 11/24/2024 05/27/2024, 04/25, 05/19/2024, Additional history exists Depression Monitoring 12/19/2024 [...] this encounter Medical Devices Implanted Type Area Safe Deposit Box Rental Clerk Device Identifier Shelf Expiration Date Model / Serial / Lot Cath Drainage 10fr [facility]-10-038 - [id number] Implanted:Qty : 1 on 05/07/2023 at [facility] Right: Abdomen [employer] [id number] 02/15/2026 [facility]-10-03 8 / / [id number] documented as of this encounter Additional Health [...] Advance Directives occurred with: Patient Care Teams Multimedia Coordinator Relationship Specialty Start Date End Date Denis Urbina MD [address] [place] [address] PCP - General Family Medicine 04/17/22 documented as of this encounter
--- OUTSIDE RECORDS SUMMARY | 2025-01-09 05:39 | External Medical Summary | Summary of Care ---
Author Name Unknown Organization [facility] Address [address] [place] [address] Phone [phone] Care Team Providers Care Anesthesia Assistant Name Role Phone Denis Urbina MD Primary Care Provider [phone] Reason for Visit * Reason Onset Date Comments Abnormal Test Results 07/31/2024 +wound cx Encounter Details Date Type Department Care Team (Late st Contact Info) Description 07/31/2024 [facility] [address] [place] [address] [place] [address] Poornima [place] PA-C [address] [place] [address] Abnormal Test Results (+wound cx) Allergies No known active allergiesdocumented as of this encounter (statuses as of 08/07/2024) Medications Albuterol Sulfate (2.5 MG/3ML) 0.083% Inhalation [...] 06/27/20 22 Active FreeStyle Maria Luz 2 [place]ger Device Use as directed . 1 Each 06/27/20 22 Active BD Insulin Syringe U/F 30G X 1/2" 0.3 ML (Insulin Syringe-Needle U-100)Indications: Type 2 diabetes mellitus without complication (HCC),Type 2 diabetes mellitus without complication, with long-term current use of insulin (HCC) INJECT UNDER THE SKIN 4 TIMES A DAY 100 Each 2 06/06/20 23 Active Droplet Pen [place] 31G X 5 MM (Insulin Pen Needle)Indications [...] IZ PRN 04/17/2024 04/17/2025 Active lidocaine-epinephrine 2 %-1:099191 inj 6 mgIndications:Moderate nonproliferative diabetic retinopathy of both eyes with macular edema associated with type 2 diabetes mellitus (HCC),Optic nerve drusen, left,6th nerve palsy, right,Combined forms of age-related cataract of both eyes 6 mg IJ PRN 04/17/2024 04/17/2025 Active documented as of this encounter (statuses as of 08/07/2024) Active Problems Problem Noted Date Diagnosed Date [...] as of this encounter (statuses as of 08/07/2024) Resolved Problems Problem Noted Date Diagnosed Date [...] as of this encounter (statuses as of 08/07/2024) Immunizations Name Administration Dates Next Due Covid-19 Ad26, Single Dose ([place]ona/J&J) 021 Hepatitis B, 20+ yrs 12/08/2014,03/31/2011,02/23 Pneumococcal Conjugate Vacci ne, 20-valent ([id number]) 06/06/2023 Pneumococcal Polysaccharide PPV23 (Pneumovax) 02/10/2011 Seasonal [...] encounter Miscellaneous Notes * Telephone Encounter - Poornima London PA-C - 08/04/2024 6:30 PM EST Called pt again, no answer, left message for callback Poornima London PA-C [facility] [address] [place] [address] * Telephone Encounter - Poornima London PA-C - 07/31/2024 6:38 PM EST Called patient regarding results below No answer, left message for callback Results for orders placed or performed in visit on 07/25/24 CULTURE, WOUND, SUPERFICIAL, AEROBIC Result Value Ref Range Culture Growth Many Staphylococcus aureus (A) Susceptibility Staphylococcus aureus - MICROBROTH DILUTIONS Clindamycin Susceptible Erythromycin Susceptible Oxacillin Susceptible Tetracycline Susceptible Trimeth/Sulfamethoxazole Susceptible Vancomycin Susceptible *Note: Due to a large number of results and/or encounters for the requested time period, some results have not been displayed. A complete set of results can be found in Results Review. MEÑO Huntley Shake Michelle Wilson [address] [address] [place] [address] documented in this encounter Plan of Treatment Upcoming Encounters Date Type Department Care Team (Late st Contact Info) Description 08/08/2024 3:00 PM EST Office Visit Wound Care Angie Teran [address] [place] [address] Paul Peng DO [address] [place] [address] 08/19/2024 12:15 PM EST Office Visit Ophthalmology [facility] [address] [place] [address] Washington Gordon MD [address] [place] [address] 10/28/2024 1:30 PM EST Office Visit Ophthalmology [facility] [address] [place] [address] Washington Gordon MD [address] [place] [address] 12/15/2024 4:20 PM EDT Office Visit Nephrology [facility] Kymberly Zhang [address] [place] [address] Elie Dixon MD [address] [place] [facility] [place] [address] 12/23/2024 10:30 AM EDT Office Visit Ophthalmology [facility] [address] [place] [address] Archana Nava MD [address] [place] [address] 12/24/2024 10:30 AM EDT Office Visit Cardiology [facility] [address] [place] [place] [address] Angela Briggs CRNP [address] [facility] [place] [address] 01/22/2025 1:15 PM EDT Imaging Radiology [facility] [address] [place] [address] Health Maintenance Due Date Last Done Comments [...] this encounter Medical Devices Implanted Type Area Nurse Staff Device Identifier Shelf Expiration Date Model / Serial / Lot Cath Drainage 10fr [facility]-10-038 - [id number] Implanted:Qty : 1 on 05/07/2023 at [facility] Right: Abdomen [employer] [id number] 02/15/2026 [facility]-10-03 8 / / [id number] documented as of this encounter Additional Health [...] Advance Directives occurred with: Patient Care Teams Anesthesia Assistant Relationship Specialty Start Date End Date Denis Urbina MD [address] [place] [address] PCP - General Family Medicine 04/17/22 documented as of this encounter
--- OUTSIDE RECORDS SUMMARY | 2025-01-09 05:40 | External Medical Summary ---
Author Name Unknown Address Unknown Organization K01:[facility] [address] [place] [address] Laboratory Report Ordering Provider Test Date Status FRANNYJACKSON 07/25/2024 18:39:36 Final Multiple other species of ae robic bacteria.
Heavy growth normal phill
No further workup routinely performed Observation Date Value Abnormality Reference (Units ) Status Bacteria identified in Specimen by Culture 07/25/2024 18:39:36 [id number]^STAPHY LOCOCCUS AUREUS Abnormal Final Many Staphylococcus aureus Performing Location [facility] [address] [facility] [place] [address] Ordering Provider Test Date Status FRANNYMANUEL 07/25/2024 18:39:36 Final Observation Date Value Abnormality Reference (Units ) Status Clindamycin 07/25/2024 18:39:36 <=0.25 Susceptible Final Erythromycin susceptibility 07/25/2024 18:39:36 <=0.25 Susceptible Final Oxacillinsusceptibility 07/25/2024 18:39:36 0.5 Susceptible Final Tetracyclinesusceptibility 07/25/2024 18:39:36 <=1 Susceptible Final TMP-SMZ susceptibility 07/25/2024 18:39:36 <=10 Susceptible Final Vancomycinsusceptibility 07/25/2024 18:39:36 <=0.5 Susceptible Final Test: Culture, Wound, Superf icial, Aerobic
Specimen Source: Leg, Right
Specimen Type: Superficial Wound
Specimen Date: 07/25/2024 1839
Result Date: 07/29/2024 1011
Result Status: Final result
Abnormal: Yes
Resulting Lab: [facility]
[address] [facility] [place] [address]

CULTURE

Many Staphylococcus aureus (Abnormal)

Multiple other species of aerobic bacteria.Heavy growth normal floraNo
further workup routinely performed

SUSCEPTIBILITY

Staphylococcus
aureus
METHOD MICROBROTH
DILUTIONS

CLINDAMYCIN <=0.25 Susceptible
ERYTHROMYCIN <=0.25 Susceptible
OXACILLIN 0.5 Susceptible
TETRACYCLINE <=1 Susceptible
TRIMETH/SULFAMETHOXAZOLE <=10 Susceptible
VANCOMYCIN <=0.5 Susceptible

null Performing Location [facility] - [address] [facility] [address]
--- OUTSIDE RECORDS SUMMARY | 2025-01-09 05:40 | External Medical Summary | Summary of Care ---
Author Name Unknown Organization [facility] Address [address] [place] [address] Phone [phone] Care Team Providers Care Medical Superintendent Name Role Phone Denis Urbina MD Primary Care Provider + [phone] Reason for Visit * Reason Comments Follow Up Follow up visit with injection * Precert (Within 10 days (routine)) - Authorized Specialty Diagnoses / Procedures Referred By Ita t Referred To Contact Ophthalmology Diagnoses Type 2 diabetes mellitus with moderate nonproliferative diabetic retinopathy with macular edema, bilateral (HCC) Procedures ME AFLIBERCEPT INJECTION ME INTRAVITREAL NJX PHARMACOLOGIC AGT SPX Washington Gordon MD [address] [place] [address] [place] [address] Referral ID Status Reason Start Date Expiration Date V isits Requested Visits Authorized [id number] Authorized Precert 06/12/2024 09/23/2099 [id number] Encounter Details Date Type Department Care Team (Late st Contact Info) Description 07/15/2024 8:15 AM EDT [place] [address] Washington Gordon MD [address] [address] , [place] [address] Moderate nonproliferative diabetic retinopathy of both eyes with macular edema associated with type 2 diabetes mellitus (HCC)* Allergies No known active allergiesdocumented as of this encounter (statuses as of 07/15/2024) Medications Medication Sig Dispensed Refills Start Date [...] Each 06/27/2022 Active FreeStyle Maria Luz 2 [place] Device Use as directed . 1 Each 06/27/2022 Active BD Insulin Syringe U/F 30G X 1/2" 0.3 ML (Insulin Syringe-Needle U-100)Indications:T ype 2 diabetes mellitus without complication (HCC),Type 2 diabetes mellitus without complication, with long-term current use of insulin (HCC) INJECT UNDER THE SKIN 4 TIMES A DAY 100 Each 2 06/06/2023 Active Droplet Pen [place] 31G X 5 MM (Insulin Pen Needle)Indications: Type 2 diabetes mellitus without complication, with long-term current use of insulin (HCC) inject subcutaneously four times a day 1000 Each 06/07/2023 Active OneTouch UltraSoft LancetsIndications: Type 2 diabetes mellitus without complication, unspecified whether long term care phlebotomist insulin use (HCC) Use as directed 4 [...] UNDER THE TONGUE DAILY 90 Tablet 1 06/04/2024 Active Erythromycin 5 MG/GM Ophthalmic OintmentIndications [...] morning. In the morning.. 90 Tablet 1 06/04/2024 Active Fluticasone Propionate 50 MCG/ACT Nasal [...] as needed for Anxiety. 90 Tablet 1 06/04/2024 Active Pregabalin 25 MG Oral Capsule [...] the morning. Every morning.. 90 Capsule 1 06/04/2024 Active Torsemide 20 MG Oral Tablet [...] mouth daily. 30 Tablet 3 06/09/2024 Active Hospital, Clinic, or Other Facility Administered [...] IZ PRN 04/17/2024 04/17/2025 Active lidocaine-epinephrine 2 %-1:059589 inj 6 mgIndications:Moderate nonproliferative diabetic retinopathy of both eyes with macular edema associated with type 2 diabetes mellitus (HCC),Optic nerve drusen, left,6th nerve palsy, right,Combined forms of age-related cataract of both eyes 6 mg IJ PRN 04/17/2024 04/17/2025 Active documented as of this encounter (statuses as of 07/15/2024) Active Problems Problem Noted Date Diagnosed Date [...] as of this encounter (statuses as of 07/15/2024) Resolved Problems Problem Noted Date Diagnosed Date [...] Taxonomy. HTN, goal to be determined 10/17/2008 Overview: Modified per HTN protocol #16. Obesity, BMI not known 12/21 Overview: Per Obesity Taxonomy documented as of this encounter (statuses as of 07/15/2024) Immunizations Name Administration Dates Next Due Covid-19 Ad26, Single Dose ([place]/J&J) 021 Hepatitis B, 20+ yrs 12/08/2014,03/31/2011,02/23 Pneumococcal Conjugate Vacci ne, 20-valent ([id number]) 06/06/2023 Pneumococcal Polysaccharide PPV23 (Pneumovax) 02/10/2011 Seasonal [...] documented as of this encounter Functional Status Functional Status Response [...] as of this encounter Progress Notes * Washington Gordon MD - 07/15/2024 9:15 AM EDT [facility] Op[facility] Clinic Visit Nursing Notes: Poornima Del Castillo OSA 07/15/24 0859 Signed Per the [place] Dept of Health: Flu and pneumonia vaccine discussed with patient. Influenza and Pneumonia vaccine not administered. Diagnoses Codes Comments Herpes zoster dermatitis of eyelid - Primary B02.39 Moderate nonproliferative diabetic retinopathy of both eyes with macular edema associated with type2 diabetes mellitus (HCC) E11.3313 Follow Up: Return for ~6 wks planned Eylea OU. Meera Mcgraw is a 69 year old female who presents for follow up visit and S/P ARUNA, OU. Last Visit: 06/04/2024 She currently states no major concerns with her vision except it can be blurry when in bright lights. She states her eyes have been "watery/crusty" lately. No new floaters. Denies flashes/halos. Denies pain/irritation. Are you diabetic? YES. Do you check your sugar daily? YES. Did not measure this morning. Last Hemoglobin A1C: Lab Results Component Value Date/Time HGBA1C 7.4 (H) 05/01/2024 03:19 AM HGBA1C 7.7 (H) 04/24/2024 10:28 AM HGBA1C 8.0 (H) 12/26/2023 03:29 PM HGBA1C 6.4 04/19/2016 10:05 AM HGBA1C 9.3 (H) 12/27/2015 07:48 AM HGBA1C 11.2 (H) 11/06/2014 01:17 PM Current Ophthalmic Medications: Bromfenac sodium 0.09% op soln 1 gtt both eyes daily HPI: Ophthalmic history unchanged since last exam. VA, IOP, Confrontational simms, Motility, pupil check and dilation can be found in ophth exam. Margaret Guerrero RN 07/15/24 0903 [address] Ms. Mcgraw prepared for her 3rd Eylea Injection of the Both eyes. Correct eye confirmed with patient and marked. LMP 11/29/2010 Alcaine applied to eye to be injected. Post injection After injection - patient able to count fingers Injected eye rinsed with eye stream. Patient denies any complaints of burning in the eye. Education/Instructions: reinforced for injection. Referring Provider: Betina Carty, DONNY [facility] Appt Date: Visit date [...] Acute respiratory failure with hypoxia and hypercapnia ([facility]) 06/19/2022 Chronic venous hypertension with ulcer ([facility]) 05/05/2022 Controlled substance agreement signed 01/28/2017 COPD exacerbation ([facility]) 12/26/2015 COPD, severity to be determined ([facility]) 12/26/2015 Diabetic retinopathy of right eye associated with type 2 diabetes mellitus ([facility]) 06/08/2021 Dyslipidemia 12/26/2015 Dyslipidemia, goal to be determined Gastroesophageal reflux disease without esophagitis 05/04/2023 Heart failure, diastolic, with acute decompensation ([facility]) 06/19/2022 Heart failure, diastolic, with acute decompensation ([facility]) 2023-10-28 Adding I50.33-Heart failure, diastolic, with acute decompensation ([facility]) Dx to History HTN, goal below 140/90 11/07/2014 HTN, goal to be determined Hypoxia 12/26/2015 Influenza A 12/29/2015 Kidney disease, chronic, stage III (GFR 30-59 ml/min) ([facility]) 06/28/2022 Major depressive disorder 07/15/2007 ICD-10 update of inactive term Obesity hypoventilation syndrome ([facility]) 06/28/2022 Obesity, BMI not known Personal history of colonic polyps PPD positive Restless leg syndrome Right abducens nerve palsy 06/19/2022 Sleep apnea SOB (shortness of breath) 12/26/2015 T2DM (type 2 diabetes mellitus) ([facility]) dx age 55 Type 2 diabetes mellitus with diabetic polyneuropathy, with long-term current use of insulin ([facility]) 12/10/2019 Past Surgical History: Procedure [...] performed by Scotty Pearson DO at [facility] FLUORESCEIN ANGIOGRAPHY MULTIFRAME 01/12/2017 OD > OS / Dr. Brown FX/DIS,RADIAL,OPN,INTRAARTIC,INT FIX,[address] Savage INJECTION OF EYE DRUG Bilateral 07/15/2024 Eylea OU # 3 Dr Gordon IR ASPIRATION ABSCESS/COLLECTION 05/07/2023 IR PROCEDURE NOT PERFORMED DOCUMENTATION ONLY 05/07/2023 LAPAROSCOPY;APPENDECTOMY N/A 01/28/2017 LAPAROSCOPIC APPENDECTOMY performed by West Newell MD at [facility] PARTIAL REMOVAL OF COLON 2000 left [...] 1 Each 0 FreeStyle Maria Luz 2 [place] Device Use as directed . 1 Each 0 BD Insulin Syringe U/F 30G X 1/2" 0.3 ML (Insulin Syringe-Needle U-100) INJECT UNDER THE SKIN 4 TIMES A DAY 100 Each 2 Droplet Pen Spelter 31G X 5 MM (Insulin Pen Needle) [...] tablet by mouth daily. 30 Tablet 3 Erythromycin 5 MG/GM Ophthalmic Ointment Instill into eye 4 times a day. Apply to affected eye(s) until redness and discharge resolved. (Patient not taking: Reported on 07/15/2024) 1 g 0 Current Facility-Administered Medications Medication Dose Route Frequency Provider Last Rate Last Admin Aflibercept (Eylea) intraviteal prefilled syringe 2 mg 2 mg Intravitreal PRN 2 mg at 07/15/24 0902 Aflibercept (Eylea) intraviteal prefilled syringe 2 mg 2 mg Intravitreal PRN 2 mg at 07/15/24 0901 lidocaine-epinephrine 2 %-1:087145 inj 6 mg 0.3 mL Injection PRN 6 mg at 07/15/24 0903 ROS: All others negative unless noted in the HPI Nursing notes reviewed. Medication list, past surgical/medical history reviewed with patient and in Epic. LMP 11/29/2010 Base Eye Exam Visual Acuity (Snellen - Linear) Right Left Dist sc 20/150 20/50 Dist ph sc 20/70 -2 20/40 -2 Tonometry (Tonopen, 8:58 AM) Right Left Pressure 10 22 Pupils Pupils Dark Shape React APD Right PERRL 3 Round Minimal None Left PERRL 3 Round Minimal None Visual Simms (Counting fingers) Right Left Full Full Extraocular Movement Right Left Full, Ortho Full, Ortho Neuro/Psych Oriented x3: Yes Dilation Both eyes: 0.5% Proparacaine @ 8:58 AM ASSESSMENT/PLAN Retinal edema (Primary) -Pt LTFU x [...] administered today without complications -RD/Endophth prec discussed Moderate nonproliferative diabetic retinopathy of both eyes with macular edema associated with type2 diabetes mellitus (HCC) -Increased CME on exam/imaging OU today -Eylea OU today Combined forms of age-related cataract of both eyes -Appear visually significant -Consider referral for CEIOL once retina stabilized History of 6th nerve palsy, right -Had MRI brain and extensive workup which was unremarkable -Now followed by Dr. Gastelum Follow Up: Return for 10-12 wks, DFE, OCT OU. | For: 10-12 wks, DFE, OCT OU A/P explained, patient verbalized understanding. Washington Gordon [...] documented in this encounter Nursing Notes * Margaret Guerrero RN - 07/15/2024 9:01 AM EDT Ms. Mcgraw prepared for her 3rd Eylea Injection of the Both eyes. Correct eye confirmed with patient and marked. LMP 11/29/2010 Alcaine applied to eye to be injected. Post injection After injection - patient able to count fingers Injected eye rinsed with eye stream. Patient denies any complaints of burning in the eye. Education/Instructions: reinforced for injection. * Poornima Del Castillo OSA - 07/15/2024 8:49 AM EDT Per the [place] Dept of Health: Flu and pneumonia vaccine discussed with patient. Influenza and Pneumonia vaccine not administered. Diagnoses Codes Comments Herpes zoster dermatitis of eyelid - Primary B02.39 Moderate nonproliferative diabetic retinopathy of both eyes with macular edema associated with type2 diabetes mellitus (HCC) E11.3313 Follow Up: Return for ~6 wks planned Eylea OU. Meera Mcgraw is a 69 year old female who presents for follow up visit and S/P ARUNA, OU. Last Visit: 06/04/2024 She currently states no major concerns with her vision except it can be blurry when in bright lights. She states her eyes have been "watery/crusty" lately. No new floaters. Denies flashes/halos. Denies pain/irritation. Are you diabetic? YES. Do you check your sugar daily? YES. Did not measure this morning. Last Hemoglobin A1C: Lab Results Component Value Date/Time HGBA1C 7.4 (H) 05/01/2024 03:19 AM HGBA1C 7.7 (H) 04/24/2024 10:28 AM HGBA1C 8.0 (H) 12/26/2023 03:29 PM HGBA1C 6.4 04/19/2016 10:05 AM HGBA1C 9.3 (H) 12/27/2015 07:48 AM HGBA1C 11.2 (H) 11/06/2014 01:17 PM Current Ophthalmic Medications: Bromfenac sodium 0.09% op soln 1 gtt both eyes daily HPI: Ophthalmic history unchanged since last exam. VA, IOP, Confrontational simms, Motility, pupil check and dilation can be found in ophth exam. documented in this encounter Plan of Treatment Upcoming Encounters Date Type Department Care Team (Late st Contact Info) Description 07/31/2024 12:30 PM EST Office Visit Pulmonary Medicine [facility] Kymberly MIRANDA [address] [place] [address] Johanny Hutton CRNP [address] [place] [address] 08/19/2024 12:15 PM EST Office Visit Ophthalmology [facility] [address] [place] [address] Washington Gordon MD [address] [place] [address] 10/28/2024 1:30 PM EST Office Visit Ophthalmology [facility] [address] [place] [address] Washington Gordon MD [address] [place] [address] 12/15/2024 4:20 PM EDT Office Visit Nephrology [facility] Kymberly MIRANDA [address] [place] [address] Elie Dixon MD [address] [place] [address] 12/23/2024 10:30 AM EDT Office Visit Ophthalmology [facility] [address] [place] [address] [place] [address] [place] [address] 12/24/2024 10:30 AM EDT [facility] [address] [place] [address] Angela Briggs, AZEEM [address] [facility] [place] [address] 01/22/2025 1:15 PM EDT Imaging Radiology [facility] [address] [place] [address] Health Maintenance Due Date Last [...] ASSESSMENT COMPLETED IN PAST YEAR FOR COPD 06/09/2025 06/09/2024 Lipid Panel 04/24/2029 04/24/2024, 08/0 09/2023, 12/26/2023, [...] this encounter Medical Devices Implanted Type Area Pit Recorder Device Identifier Shelf Expiration Date Model / Serial / Lot Cath Drainage 10fr [facility]-10-038 - [id number] Implanted:Qty : 1 on 05/07/2023 at [facility] Right: Abdomen [facility] [employer] [id number] 02/15/2026 [facility]-10-03 8 / / [id number] documented as of this encounter Visit Diagnoses [...] Sun04/17/25 at 1113, For 365 days, Right Eye Given 07/15/2024 9:02 AM EDT 2 mg Eye Right Given 05/20/2024 10:30 AM EDT 2 mg E ye Left Given 04/17/2024 11:00 AM EDT 2 mg E ye Right Aflibercept (Eylea) intraviteal prefilled syringe 2 mg 2 mg, Intravitreal, PRN Other, Starting on Sun04/17/24 at 1114, Until Sun04/17/25 at 1113, For 365 days, Left Eye Given 07/15/2024 9:01 AM EDT 2 mg Eye Left Given 05/20/2024 10:29 AM EDT 2 mg E ye Right Given 04/17/2024 11:02 AM EDT 2 mg E ye Left lidocaine-epinephrine 2 %-1:821131 inj 6 mg 6 mg (0.3 mL), Injection, PRN Other, Starting on Tahmina 7/25/24 at 1114, Until 04/17/25 at 1113, For 365 days Given 07/15/2024 9:03 AM EDT 6 mg Eye Right Given 07/15/2024 9:02 AM EDT 6 mg Ey e Left Given 05/20/2024 10:29 AM EDT 6 mg E ye Right documented in this encounter Additional Health Concerns [...] Advance Directives occurred with: Patient Care Teams Medical Superintendent Relationship Specialty Start Date End Date Denis Urbina MD [address] [place] [address] PCP - General Family Medicine 04/17/22 documented as of this encounter
--- OUTSIDE RECORDS SUMMARY | 2025-01-09 05:40 | External Medical Summary | Summary of Care ---
Author Name Unknown Organization [facility] Address [address] [place] [address] Phone [phone] Care Team Providers Care Farmworker Livestock Name Role Phone Denis Urbina MD Primary Care Provider + [phone] Reason for Visit * Reason Comments NEW PATIENT * Evaluate & Treat - Unlimited Visits (Within 10 days (routine)) - Closed Specialty Diagnoses / Procedures Referred By Ita carlin Referred To Contact Nephrology Diagnoses Chronic kidney disease, stage 3b (HCC) Ananya Lambert Jr., PA-C [address] [place] [address] Referral ID Status Reason Start Date Expiration Date V isits Requested Visits Authorized [id number] Closed Specialty Services Required 12/26/[phone] Encounter Details Date Type Department Care Team (Late st Contact Info) Description 06/17/2024 11:40 AM EDT Office Visit Nephrology [facility] Kymberly MIRANDA [address] [facility] [place] [address] Elie Dixon MD [address] [facility] [place] [address] Stage 3b chronic kidney disease (HCC)*; Diabetic nephropathy associated with type 2 diabetes mellitus (HCC); Hypertension secondary to other renal disorders; HTN, goal below 130/80; Persistent proteinuria; Class 3 severe obesity due to excess calories with serious comorbidity and body mass index (BMI) of 40.0 to 44.9 in adult (HCC); Chronic heart failure with preserved ejection fraction (HCC) Allergies No known active allergiesdocumented as [...] Each 06/27/2022 Active FreeStyle Maria Luz 2 [place] Device Use as directed . 1 Each 06/27/2022 Active BD Insulin Syringe U/F 30G X 1/2" 0.3 ML (Insulin Syringe-Needle U-100)Indications:T ype 2 diabetes mellitus without complication (HCC),Type 2 diabetes mellitus without complication, with long-term current use of insulin (HCC) INJECT UNDER THE SKIN 4 TIMES A DAY 100 Each 2 06/06/2023 Active Droplet Pen [place] 31G X 5 MM (Insulin Pen Needle)Indications: Type 2 diabetes mellitus without complication, with long-term current use of insulin (HCC) inject subcutaneously four times a day 1000 Each 06/07/2023 Active OneTouch UltraSoft LancetsIndications: Type 2 diabetes mellitus without complication, unspecified whether computer terminal operator insulin use (HCC) Use as directed [...] and discharge resolved. 1 g 06/04/2024 Active Escitalopram Oxalate 10 MG Oral Tablet (Lexapro)Indication s:Episode of recurrent major depressive disorder, unspecified depression episode severity (HCC) Take 1 Tablet by mouth in the morning. In the morning.. 90 Tablet 1 06/04/2024 Active Fluticasone Propionate 50 MCG/ACT Nasal Suspension (Flonase)Indication s:Rhinosinusitis Administer 2 Sprays into each nostril in the morning. 1 Each 5 06/04/2024 Active Gabapentin 100 MG Oral Capsule [...] Tablet by mouth every evening. 90 Tablet 06/04/2024 Active Vitamin D3 50 MCG (2000 [...] IZ PRN 04/17/2024 04/17/2025 Active lidocaine-epinephrine 2 %-1:073696 inj 6 mgIndications:Moderate nonproliferative diabetic retinopathy of both eyes with macular edema associated with type 2 diabetes mellitus (HCC),Optic nerve drusen, left,6th nerve palsy, right,Combined forms of age-related cataract of both eyes 6 mg IJ PRN 04/17/2024 04/17/2025 Active bevaCIZumab (Avastin) inj 1.25 mgIndications:Moderate nonproliferative diabetic retinopathy of both eyes with macular edema associated with type 2 diabetes mellitus (HCC),Optic nerve drusen, left,6th nerve palsy, right,Combined forms of age-related cataract of both eyes 1.25 mg IZ PRN 07/10/2023 07/09/2024 Ended lidocaine-epinephrine 2 %-1:390669 inj 6 mgIndications:Moderate nonproliferative diabetic retinopathy of [...] DDD (degenerative disc disease), lumbar 08/22/20 16 HTN, goal below 140/90 11/07/2014 Tobacco [...] yrs 12/08/2014,03/31/2011,02/23 Pneumococcal Conjugate Vacci ne, 20-valent ([id number]) 06/06/2023 Pneumococcal Polysaccharide PPV23 (Pneumovax) 02/10/2011 Seasonal [...] Sign Reading Time Taken Comments Blood Pressure 96/44 06/17/2024 12:06 PM EDT Pulse 58 06/17/2024 12:06 PM EDT Temperature 36 °C (96.8 °F) 06/17/2024 12:04 PM EDT Respiratory Rate 18 06/17/2024 12:04 PM EDT Oxygen Saturation - - Inhaled Oxygen Concentration - - Weight 113.9 kg (251 lb) 06/17/2024 12:04 PM EDT Height 162.6 cm (5' 4") 06/17/2024 12:04 PM EDT Body Mass Index 43.08 06/17/2024 12:04 PM EDT documented in this encounter Functional Status Functional [...] as of this encounter Progress Notes * Elie Dixon MD - 06/17/2024 12:14 PM EDT NEPHROLOGY CLINIC NOTE Nephrology [facility] Kymberly MIRANDA [address] [place] [address] [place] [address] 06/17/2024, 12:16 PM Patient Name: Meera Mcgraw Referring Physician: Ananya SUMMERSC Chief Complaint Patient presents with NEW PATIENT HPI Ms. 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 Review of prior labs demonstrates serum Cr ranging from 1.5 - 2.1 (eGFR 25-40). This suggests improving kidney function, equating to CKD stage 3b (recovering from CHIQUIS). History was obtained from the patient, in addition to chart review. The patient has been seen by the [facility] in the past, but has now opted to change to [facility]. Diagnosed with hypertension in 2014. This has been under good control. Diagnosed with HFpEF in 2022, and has had exacerbations leading to hospitalizations. Denies stroke, heart disease or peripheral arterial disease. She is enrolled in a remote weight and BP monitoring program by Cardiology - SBP 110s-120s / DBP 70s. Weight trends - 251-253 lbs. Diagnosed with type 2 diabetes in 2006. This has been under poor control in prior years, but bettercontrol more recently. Has known severe diabetic neuropathy. Also has moderate non-proliferative retinopathy requiring intravitreal injections. Last A1c - 7.4% (Apr 2024). A detailed dietary review was not performed today due to time constraints. Otherwise, she denies gout, kidney stones, chronic NSAID use, or a family history of CKD. Past Medical History: Diagnosis Date Acute appendicitis 01/29/2017 Acute respiratory failure with hypoxia and hypercapnia ([facility]) 06/19/2022 Chronic venous hypertension with ulcer ([facility]) 05/05/2022 Controlled substance agreement signed 01/28/2017 COPD exacerbation ([facility]) 12/26/2015 COPD, severity to be determined ([facility]) 12/26/2015 Diabetic retinopathy of right eye associated with type 2 diabetes mellitus ([facility]) 06/08/2021 Dyslipidemia 12/26/2015 Dyslipidemia, goal to be determined Gastroesophageal reflux disease without esophagitis 05/04/2023 Heart failure, diastolic, with acute decompensation ([facility]) 06/19/2022 Heart failure, diastolic, with acute decompensation ([facility]) 2023-10-28 Adding I50.33-Heart failure, diastolic, with acute decompensation ([facility]) Dx to History HTN, goal below 140/90 11/07/2014 HTN, goal to be determined Hypoxia 12/26/2015 Influenza A 12/29/2015 Kidney disease, chronic, stage III (GFR 30-59 ml/min) (HCC) 06/28/2022 Major depressive disorder 07/15/2007 ICD-10 update of inactive term Obesity hypoventilation syndrome (HCC) 06/28/2022 Obesity, BMI not known Personal history of colonic polyps PPD positive Restless leg syndrome Right abducens nerve palsy 06/19/2022 Sleep apnea SOB (shortness of breath) 12/26/2015 T2DM (type 2 diabetes mellitus) ([facility]) dx age 55 Type 2 diabetes mellitus with diabetic polyneuropathy, with long-term current use of insulin ([facility]) 12/10/2019 Patient Active Problem List Diagnosis Restless leg syndrome SLEEP APNEA, UNSPECIFIED History of colonic polyps PPD positive Major depressive disorder ARTHRITIS -HANDS Rosacea Dyslipidemia, goal LDL below 100 Vitamin deficiency Tobacco use disorder HTN, goal below 140/90 DDD (degenerative disc disease), lumbar Type 2 diabetes mellitus with diabetic polyneuropathy, with long-term current use of insulin ([facility]) Right abducens nerve palsy Lesion of bone of cervical spine BMI 40.0-44.9, adult ([facility]) Anxiety state Choledocholithiasis Chronic respiratory failure with hypoxia and hypercapnia ([facility]) Moderate nonproliferative diabetic retinopathy of both eyes with macular edema associated with type2 diabetes mellitus ([facility]) Acute respiratory failure with hypercapnia ([facility]) Food insecurity Chronic kidney disease with symptom management only, stage 3 (moderate) ([facility]) COPD, group C, by GOLD 2017 classification ([facility]) Onychomycosis of nail of digit of hand Acute renal failure superimposed on stage 3b chronic kidney disease ([facility]) Chronic kidney disease, stage 4 (severe) ([facility]) Current Outpatient Medications Medication Sig Dispense Refill Omeprazole 20 MG Oral Capsule Delayed Release (PriLOSEC) take 1 capsule by mouth every morning 90 Capsule 1 Erythromycin 5 MG/GM Ophthalmic Ointment Instill into eye 4 times a day. Apply to affected eye(s) until redness and discharge resolved. 1 g 0 Escitalopram Oxalate 10 MG Oral Tablet (Lexapro) Take 1 Tablet by mouth in the morning. In the morning.. 90 Tablet 1 Gabapentin 100 MG Oral Capsule (Neurontin) Take [...] UNDER THE TONGUE DAILY 90 Tablet 3 Albuterol Sulfate (2.5 MG/3ML) 0.083% Inhalation Nebulization Solution (Proventil) One vial in nebulizer every 4 hours as needed for wheezing 3 mL 1 Acetaminophen 325 MG Oral Tablet (Tylenol) Take 1 Tablet by mouth every 6 hours as needed for Pain,Mild. CPAP every night at bedtime . FreeStyle Maria Luz 2 Sensor Use as directed . 1 Each 0 FreeStyle Maria Luz 2 [place] Device Use as directed . 1 Each 0 BD Insulin Syringe U/F 30G X 1/2" 0.3 ML (Insulin Syringe-Needle U-100) INJECT UNDER THE SKIN 4 TIMES A DAY 100 Each 2 Droplet Pen [place] 31G X 5 MM (Insulin Pen Needle) [...] UNDER THE TONGUE DAILY 90 Tablet 1 Fluticasone Propionate 50 MCG/ACT Nasal Suspension (Flonase) Administer 2 Sprays into each nostril in the morning. 1 Each 5 Pregabalin 25 MG Oral Capsule (Lyrica) Take 1 Capsule by mouth in the morning. 30 Capsule 0 Ondansetron 4 MG Oral Tablet Disintegrating (Zofran) Place 1 Tablet on tongue every 8 hours as needed for Nausea. dissolve on tongue. 30 Tablet 1 Multivitamin Adult Oral Tablet Take 1 tablet by mouth daily. 30 Tablet 3 Current Facility-Administered Medications Medication Dose Route Frequency Provider Last Rate Last Admin bevaCIZumab (Avastin) inj 1.25 mg 1.25 mg Intravitreal PRN Paul Moss, DO 1.25 mg at 07/10/23 1632 lidocaine-epinephrine 2 %-1:922974 inj 6 mg 0.3 mL Injection PRN Paul Moss, DO 6 mg at 05/20/24 1029 Aflibercept (Eylea) intraviteal prefilled syringe 2 mg 2 mg Intravitreal PRN 2 mg at 05/20/24 1030 Aflibercept (Eylea) intraviteal prefilled syringe 2 mg 2 mg Intravitreal PRN 2 mg at 05/20/24 1029 lidocaine-epinephrine 2 %-1:683136 inj 6 mg 0.3 mL Injection PRN 6 mg at 05/20/24 1029 Review of patient's allergies indicates: No Known Allergies Social History Tobacco Use Smoking status: Former Current packs/day: 0.00 Average packs/day: 0.1 packs/day for 3.0 years (0.4 ttl pk-yrs) Types: Cigarettes Start date: 03/08/2019 Quit date: 03/08/2022 Years since quittin.2 Smokeless tobacco: Never Tobacco comments: smoked in college also Vaping Use Vaping status: Never Used Substance Use Topics Alcohol use: Yes Comment: rarely Drug use: No Family History Problem Relation Name Age of Onset Cancer Mother breast Obesity Father Obesity Brother sleep apnea REVIEW OF SYSTEMS: Pertinent positives and negatives as documented in the HPI. All other systems are negative. PHYSICAL EXAMINATION: Vitals: 06/17/24 1204 06/17/24 1206 Temp: 36 °C (96.8 °F) Pulse: 55 58 Resp: 18 BP: 104/48 96/44 BMI: 43.06 Body mass index is 43.08 kg/m². General: No acute distress. Obese. HEENT: Normocephalic, atraumatic. EOM intact. Neck: Trachea is midline. No JVD appreciable. Cardiovascular: RRR. No murmurs. No palpable thrill. Pulmonary: Normal respiratory pattern. Clear to auscultation bilaterally. Abdomen: Soft, non-tender, non-distended. No masses. Bowel sounds present. Extremities: No pedal edema noted. Skin: Warm, with normal turgor. No rashes. Neuro: Alert, oriented x 3. No focal deficits. Came to the office on a wheelchair (uses a walker athome). Psych: Normal thought content and intact judgment. LABS: Reviewed the following labs and trends, for medical decision making. Recent Labs Units 05/27/24 0800 05/20/24 0639 05/19/24 0651 05/16/24 1013 05/08/24 0539 05/07/24 0602 05/06/24 0601 05/05/24 1710 05/05/24 0626 05/04/24 1805 05/04/24 0536 SODIUM - [facility] mmol/L 140 141 140 140 < > 135 134* < > 136 < > 139 POTASSIUM - [facility] mmol/L 4.1 5.0 4.8 4.7 < > 4.5 4.0 < > 4.4 < > 4.5 CHLORIDE - [facility] mmol/L 94* 99 100 99 < > 86* 83* < > 87* < > 94* CO2 - [facility] mmol/L 37* 31 32 29 < > 41* 42* < > 41* < > 38* ESTIMATED GLOMERULAR FILTRATION RATE - [facility] mL/min 40* 25* 24* 20* < > 26* 31* < >34* < > 33* BUN - [facility] mg/dL 58* 77* 79* 73* < > 60* 53* < > 49* < > 49* CREATININE - [facility] mg/dL 1.5* 2.1* 2.2* 2.6* < > 2.1* 1.8* < > 1.6* < > 1.7* MAGNESIUM - [facility] mg/dL -- -- -- -- -- 2.4 2.3 -- 2.3 -- 2.3 < > = values in this interval not displayed. Recent Labs Units 05/27/24 0800 05/20/24 0639 05/19/24 0651 05/16/24 1013 WBC K/uL 6.04 5.20 5.69 4.94 HGB g/dL 11.2* 10.3* 10.7* 10.9* Recent Labs Units 05/27/24 0800 05/20/24 0639 05/19/24 0651 05/16/24 1013 05/09/24 0605 05/08/24 0539 05/07/24 0602 05/06/24 0601 05/05/24 1710 05/05/24 0626 01/09/24 1505 12/26/23 1529 CALCIUM - [facility] mg/dL 9.2 8.6 8.8 8.6 < > 8.7 8.7 8.9 < > 9.0 < > 9.5 PHOSPHORUS - [facility] mg/dL -- -- -- -- -- 4.5 5.1* 4.7 -- 4.6 < > 3.9 25-HYDROXY VITAMIN D - [facility] ng/mL -- -- -- -- -- -- -- -- -- -- -- 34 < > = values in this interval not displayed. Recent Labs Units 05/01/24 0319 04/24/24 1028 12/26/23 1529 HEMOGLOBIN A1C - [facility] % 7.4* 7.7* 8.0* No results for input(s): "ALBCREURN", "ALBCREHIDE", "PROCRRATIO", "PROTCREATRAT" in the last 70908 hours. PERTINENT IMAGING: Renal US (November 2023) I have personally reviewed the results which are summarized as follows: FINDINGS RIGHT KIDNEY: 10.0 cm x 5.8 cm x 4.6 cm. Normal size and echogenicity. No hydronephrosis or shadowing calculi. 0.7 cm cyst in the inferior pole. LEFT KIDNEY: 10.7 cm x 6.4 cm x 4.8 cm. Normal size and echogenicity. No hydronephrosis, shadowing calculi, or mass. BLADDER: Partially filled. AORTA: Visualized portions normal in caliber. IMPRESSION Right renal cyst. Echocardiogram (Apr 2024) I have personally reviewed the results which are summarized as follows: The examination is limited quality but adequate [...] estimated pulmonary artery systolic pressure is 66mm Hg. ASSESSMENT AND PLAN Stage 3b chronic kidney disease (HCC) (Primary) - RENAL FUNCTION PANEL; Future; Expected date: 12/12/2024 - PTH; Future; Expected date: 12/12/2024 - 25-HYDROXY VITAMIN D; Future; Expected date: 12/12/2024 - ALBUMIN / CREATININE RATIO, URINE; Future; Expected date: 12/12/2024 Diabetic nephropathy associated with type 2 diabetes mellitus (HCC) Hypertension secondary to other renal disorders HTN, goal below 130/80 Persistent proteinuria Class 3 severe obesity due to excess calories with serious comorbidity and body mass index (BMI) of40.0 to 44.9 in adult (HCC) Chronic heart failure with preserved ejection fraction (HCC) Chronic kidney disease, stage 3b Etiology: Diabetic nephropathy Biopsy proven: No Other contributory factors: Hypertension, obesity, HFpEF Recent serum Cr ranging from 1.5 - 2.1 (eGFR 25-40) - improving Counseling regarding renal replacement therapy: i. Dialysis - Deferred ii. Transplantation - Deferred Counseling performed: a. Control hypertension and diabetes b. Reduce dietary sodium intake c. Avoid NSAIDs d. Avoid / minimize IV contrast use e. Medication adherence f. Need to lose weight I ordered a full CKD surveillance panel to better assess the sequelae of CKD Hypertension secondary to other renal disorders Hypertension diagnosed in: 2014 Extrarenal manifestations of end-organ damage: HFpEF, evidence of severe LV diastolic dysfunction BP is at goal today - target BP <130/80 Self monitored home blood pressure monitoring recommended - return with written values at next appointment Antihypertensive regimen: CHRISTOPHER-I / ARB: None - BP may not tolerate addition of this drug Diuretic: Torsemide 60 mg daily Other: Amlodipine 5 mg daily. Coreg 3.125 mg BID. Prior concern for demand mediated NSTEMI - benefit of beta ashlie is unclear in this situation I will consider stopping Amlodipine in favor of starting ARB therapy in the future Proteinuria Noted on prior dipsticks - has never been quantified Check UACR serially CHRISTOPHER-I/ARB therapy: None - BP may not tolerate addition of this drug SGLT2i therapy: Can be considered, especially if proteinuria persists despite optimal BP control onmaximally tolerated MERI inhibition Obesity Obesity related manifestations: Hypertension, CKD, diabetes, PAOLA (on CPAP) Counseled on the dangers of obesity with regard to progression of the aforementioned ailments Counseled on dietary calorie reduction combined with increased aerobic activity, with the former being the mainstay of weight loss Thank you for the courtesy of this consultation. Please do not hesitate to reach out to me for any questions. Follow Up: Return in about 6 months (around 12/15/2024) for Clinic Visit. | For: Clinic Visit Elie Dixon MD CC: REF: ANANYA LAMBERT JR [address] [place] [address] (office) [phone] (fax) PCP: DENIS URBINA [address] [place] [address] [phone] documented in this encounter Nursing Notes * Radha Herron LPN - 06/17/2024 12:02 PM EDT Patient identified by verbal name and date of . New documented in this encounter Plan of Treatment Upcoming Encounters Date Type Department Care Team ([facility] st Contact Info) Description 07/15/2024 8:15 AM EDT Office Visit Ophthalmology [facility] [address] [place] [address] [place] Gordon MD [address] [place] [address] [place] [address] [address], Nurse Ophthalmology [address] [address] 07/31/2024 12:30 PM EST Office Visit Pulmonary Medicine [facility] Kymberly Zhang [address] [facility] [place] [phone] Johanny Hutton CRNP [address] [facility] [place] [address] 08/19/2024 12:15 PM EST Office Visit Ophthalmology [address] [address] [place] Gordon MD [address] [place] [address] 12/15/2024 4:20 PM EDT Office Visit Nephrology [facility] Kymberly MIRANDA [address] [place] [phone] Elie Dixon MD [address] [facility] [place] [address] 12/23/2024 10:30 AM EDT Office Visit Ophthalmology [address] [address] Archana Nava MD [address] [place] [address] 12/24/2024 10:30 AM EDT [facility] [address] [facility] [place] [address] Angela Briggs CRNP [address] [facility] [place] [address] 01/22/2025 1:15 PM EDT Imaging Radiology [address] [address] Scheduled Orders Name Type Priority Associated Diagnoses Orde r Schedule RENAL FUNCTION PANEL Lab Routine Stage 3b chronic kidney disease (HCC) Expected: 12/12/2024 (Approximate), Expires: 07/14/2025 PTH Lab Routine Stage 3b chronic kidney disease (HCC) Expected: 12/12/2024 (Approximate), Expires: 07/14/2025 25-HYDROXY VITAMIN D Lab Routine Stage 3b chronic kidney disease (HCC) Expected: 12/12/2024 (Approximate), Expires: 07/14/2025 ALBUMIN / CREATININE RATIO, URINE Lab Routine Stage 3b chronic kidney disease (HCC) Expected: 12/12/2024 (Approximate), Expires: 07/14/2025 Health Maintenance Due Date Last Done Comments [...] 12/26/2023, Additional history exists GFR 11/24/2024 05/27/2024, 0803/2024, 05/19/2024, Additional history exists Depression Monitoring 12/19/2024 [...] this encounter Medical Devices Implanted Type Area Remote Broadcast Technician Device Identifier Shelf Expiration Date Model / Serial / Lot Cath Drainage 10fr [facility]-10-038 - [id number] Implanted:Qty : 1 on 05/07/2023 at [facility] Right: Abdomen [employer] [id number] 02/15/2026 [facility]-10-03 8 / / [id number] documented as of this encounter Visit Diagnoses Diagnosis Stage 3b chronic kidney disease (HCC)- Primary Diabetic nephropathy associated with type 2 diabetes mellitus (HCC) Hypertension secondary to other renal disorders HTN, goal below 130/80 Unspecified essential hypertension Persistent proteinuria Proteinuria Class 3 severe obesity due to excess calories with serious comorbidity and body mass index (BMI) of 40.0 to 44.9 in adult (HCC) Chronic heart failure with preserved ejection fraction (HCC) documented in this encounter Additional Health [...] Advance Directives occurred with: Patient Care Teams Farmworker Livestock Relationship Specialty Start Date End Date Denis Urbina MD [address] [place] [address] PCP - General Family Medicine 04/17/22 documented as of this encounter
--- OUTSIDE RECORDS SUMMARY | 2025-01-09 05:40 | External Medical Summary | Summary of Care ---
Author Name Unknown Organization [facility] Address [address] [place] [address] Phone [phone] Care Team Providers Care Quality Rn Name Role Phone Denis Urbina MD Primary Care Provider + [phone] Reason for Referral * Evaluate & Treat - Unlimited Visits (Within 3 days (urgent)) - Authorized Specialty Diagnoses / Procedures Referred By Ita carlin Referred To Contact Wound Care Diagnoses Wound of right lower extremity, initial encounter Poornima London PA-C [address] [place] [address] Referral ID Status Reason Start Date Expiration Date Visits Requested Visits Authorized [id number] Authorized Specialty Services Required 07/25/2024 999 999 [...] PM EDT [facility] Visit [facility] [address] [place] [address] Poornima London PA-C [address] [place] [address] Wound of right lower extremity, [...] Each 06/27/2022 Active FreeStyle Maria Luz 2 [place] Device Use as directed . 1 Each 06/27/2022 Active BD Insulin Syringe U/F 30G X 1/2" 0.3 ML (Insulin Syringe-Needle U-100)Indications:T ype 2 diabetes mellitus without complication (HCC),Type 2 diabetes mellitus without complication, with long-term current use of insulin (HCC) INJECT UNDER THE SKIN 4 TIMES A DAY 100 Each 2 06/06/2023 Active Droplet Pen [place] 31G X 5 MM (Insulin Pen Needle)Indications: Type 2 diabetes mellitus without complication, with long-term current use of insulin (HCC) inject subcutaneously four times a day 1000 Each 06/07/2023 Active OneTouch UltraSoft LancetsIndications: Type 2 diabetes mellitus without complication, unspecified whether mcfp insulin use (HCC) Use as directed 4 [...] IZ PRN 04/17/2024 04/17/2025 Active lidocaine-epinephrine 2 %-1:[id number] inj 6 mgIndications:Moderate nonproliferative diabetic retinopathy of [...] yrs 12/08/2014,03/31/2011,02/23 Pneumococcal Conjugate Vacci ne, 20-valent ([id number]) 06/06/2023 Pneumococcal Polysaccharide PPV23 (Pneumovax) 02/10/2011 Seasonal [...] No 01/22/2024 Does the household have a [facility] source [facility] income? (Household - for [...] it with her Has home health through [facility], usually comes 1x/week Pt requesting note for [...] of insulin ([facility]) Right abducens nerve palsy Lesion of bone of cervical spine BMI 40.0-44.9, adult ([facility]) Anxiety state Choledocholithiasis Chronic respiratory failure with hypoxia and hypercapnia ([facility]) Moderate nonproliferative diabetic retinopathy of both eyes with macular edema associated with type2 diabetes mellitus ([facility]) Acute respiratory failure with hypercapnia ([facility]) Food insecurity Chronic kidney disease with symptom management only, stage 3 (moderate) ([facility]) COPD, group C, by GOLD 2017 classification ([facility]) Onychomycosis of nail of digit of hand Acute renal failure superimposed on stage 3b chronic kidney disease ([facility]) Chronic kidney disease, stage 4 (severe) ([facility]) Current Outpatient Medications Medication Sig Dispense Refill [...] 1 Each 0 FreeStyle Maria Luz 2 [place] Device Use as directed . 1 Each 0 BD Insulin Syringe U/F 30G X 1/2" 0.3 ML (Insulin Syringe-Needle U-100) INJECT UNDER THE SKIN 4 TIMES A DAY 100 Each 2 Droplet Pen [place] 31G X 5 MM (Insulin Pen Needle) [...] 2 mg at 07/15/24 0901 lidocaine-epinephrine 2 %-1:001083 inj 6 mg 0.3 mL Injection PRN 6 mg at 07/15/24 0903 Review of patient's allergies indicates: No Known Allergies Past Medical History: Diagnosis Date Acute appendicitis 01/29/2017 Acute respiratory failure with hypoxia and hypercapnia ([facility]) 06/19/2022 Chronic venous hypertension with ulcer ([facility]) 05/05/2022 Controlled substance agreement signed 01/28/2017 COPD exacerbation ([facility]) 12/26/2015 COPD, severity to be determined ([facility]) 12/26/2015 Diabetic retinopathy of right eye associated with type 2 diabetes mellitus ([facility]) 06/08/2021 Dyslipidemia 12/26/2015 Dyslipidemia, goal to be determined Gastroesophageal reflux disease without esophagitis 05/04/2023 Heart failure, diastolic, with acute decompensation ([facility]) 06/19/2022 Heart failure, diastolic, with acute decompensation ([facility]) 2023-10-28 Adding I50.33-Heart failure, diastolic, with acute decompensation ([facility]) Dx to History HTN, goal below 140/90 11/07/2014 HTN, goal to be determined Hypoxia 12/26/2015 Influenza A 12/29/2015 Kidney disease, chronic, stage III (GFR 30-59 ml/min) ([facility]) 06/28/2022 Major depressive disorder 07/15/2007 ICD-10 update [...] performed by Scotty Pearson DO at ENDOSCOPY [facility] FLUORESCEIN ANGIOGRAPHY MULTIFRAME 01/12/2017 OD > OS / Dr. Brown FX/DIS,RADIAL,OPN,INTRAARTIC,INT FIX,[address] Savage INJECTION OF EYE DRUG Bilateral 07/15/2024 Eylea OU # 3 Dr Gordon IR ASPIRATION ABSCESS/COLLECTION 05/07/2023 IR PROCEDURE NOT PERFORMED DOCUMENTATION ONLY 05/07/2023 LAPAROSCOPY;APPENDECTOMY N/A 01/28/2017 LAPAROSCOPIC APPENDECTOMY performed by [place] Newell MD at OR [facility] PARTIAL REMOVAL OF COLON 2000 left hemicolectomy, [...] Stability Do you currently live in a longterm or have no steady place to sleep [...] with primary care physician. Poornima London PA-C [facility] [address] [place] [phone] documented in this encounter Nursing Notes * [...] Wound Care Angie Teran [address] [address] Paul Peng DO [address] [address] 07/31/2024 12:30 PM EST Office Visit Pulmonary Medicine [facility] [place] MIRANDA [address] [facility] [place] [phone] Johanny Hutton CRNP [address] [facility] [place] [address] 08/19/2024 12:15 PM EST Office Visit Ophthalmology [facility] [address] [place] [address] Washington Gordon MD [address] [address] 10/28/2024 1:30 PM EST Office Visit Ophthalmology [facility] [address] [place] [address] Washington Gordon MD [address] [address] 12/15/2024 4:20 PM EDT [facility] [address] [facility] [place] [phone] Elie Dixon MD [address] [facility] [place] [address] 12/23/2024 10:30 AM EDT Office Visit Ophthalmology [facility] [address] [place] [address] Archana Nava MD [address] [place] [address] 12/24/2024 10:30 AM EDT Office Visit Cardiology [facility] [place] [address] [facility] [place] [address] Angela Briggs CRNP [address] [facility] [place] [address] 01/22/2025 1:15 PM EDT Imaging Radiology [address] [address] Scheduled Orders Name Type Priority Associated Diagnoses Orde r Schedule CULTURE, WOUND, SUPERFICIAL, AEROBIC Lab Routine Wound of right lower extremity, initial encounter Ordered: 07/25/2024 Scheduled Referrals Name Type Priority Associated Diagnoses [...] this encounter Medical Devices Implanted Type Area Boardmarker Device Identifier Shelf Expiration Date Model / Serial / Lot Cath Drainage 10fr [facility]-10-038 - [id number] Implanted:Qty : 1 on 05/07/2023 at [facility] Right: Abdomen [facility] [employer] [facility] [id number] 02/15/2026 [facility]-10-03 8 / / [id number] documented as of this encounter Visit Diagnoses [...] Directives occurred with: Patient Care Teams Quality Rn Relationship Specialty Start Date End Date Denis Urbina MD [address] [place] [address] PCP - General Family Medicine 04/17/22 documented as of this encounter
[2025-01-09 05:51] LABS: Base Excess VBG 0.1 mEq/L; HCO3 VBG 29 mmol/L; Oxygen Saturation VBG 69.5 %; PCO2 VBG 64 mmHg (38-50); PO2 VBG 41 mmHg; pH VBG 7.26 (7.36-7.41)
[2025-01-09] MEDS: HEPARIN SOD 5,000 UNIT/0.5 ML VIAL SQ SCH (06:21)
[2025-01-09] MEDS: hydrALAZINE HCL 20 MG/ML VIAL IV ONE (06:22)
[2025-01-09] MEDS: INSULIN ASPART PER UNIT CHARGE SC SCH (06:42)
[2025-01-09] MEDS: hydrOXYzine HCl 25 MG TAB PO PRN (07:34)
--- NOTE | 2025-01-09 09:27 | Cardiology Consultation ---
Date of Consultation January 09, 2025 Assessment & Plan (1) Acute and chronic respiratory failure with hypercapnia: (2) Pickwickian syndrome: (3) Acute on chronic heart failure with preserved ejection fraction: (4) Hypertensive urgency: Plan Patient admitted with multifactorial SOB/hypoxia, hypertensive urgency secondary to non compliance with her outpatient diuretics and antihypertensive therapy. History of morbid obesity, chronic respiratory failure/pickwickian, PAOLA with CPAP, HFpEF with several admissions over the last 6 months to [facility], treated with IV lasix and BIPAP therapy. Acute HFpEF -Continue IV lasix 60 mg BID -Monitor I+O's -Fluid restriction of 1500 ml -Monitor renal function/electrolytes -Daily weight with standing scale -Patient follows with [facility] [place] - Per review of records she has not been on guideline directed medical therapies with CHRISTOPHER/ARB, spironolactone due to baseline renal insufficiency? Hypertensive urgency -Due to non compliance with oral medications -Carvedilol 3.125 mg BID resumed -Continue IV diuretics -Amlodipine 2.5 mg daily also added. -Could consider low dose CHRISTOPHER/ARB vs Entresto as an outpatient based on renal funciton. -BP improved this morning PAOLA -continue CPAP -compliance encouraged Case discussed with Dr. Ayala I spent a total of 60 minutes on the date of service in preparation, delivery, and documentation of the care provided to this patient, excluding any time spent in the performance of separately billed services. Josy Wetzel PA-C Department of Cardiology, [facility] This chart was completed in part utilizing Speech Voice Recognition Software. Grammatical errors, random word insertions, pronoun errors, and incomplete sentences are an occasional consequence of this system due to software limitations, ambient noise, and hardware issues. Any formal questions or concerns about the content, text, or information contained within the body of this dictation should be directly addressed to the provider for clarification. Supervising Physician Co-Signing Physician Notes Attending attestation: Case reviewed with the advanced practitioner. I have personally performed a history and physical examination on the patient. I have reviewed the advanced practitioner's documentation on the date of service referenced in note, and I agree with, and take responsibility for the plan of care. I spent a total of 20 minutes coordinating, documenting, and providing care for this patient excluding time spent in the performance of separately billed services or time spent by another provider. [place] Ayala, History of Present Illness Reason for Consultation: HFpEF Requesting Physician: [facility] Attending Physician: Dr. Ayala History of Present Illness Patient is a 69 year odl female admitted to [facility] yesterday with worsening SOB, hypoxia consistent with acute on chronic respiratory failure, acute HFpEF, and hypertensive urgency. Medical history significant for chronic respiratory failure secondary to COPD/RLD on home O2, chronic diastolic heart failure (EF 60%, TTE 2024), mild TR, hypertension, hyperlipidemia, pulmonary hypertension, OHS on CPAP, DM2 insulin requiring, CRI (baseline creatinine 1.5-1.7), chronic LE venous stasis, GERD, cholelithiasis, anxiety/mood disorder, past tobacco abuse. Admitted to [facility] in Sep 2024 for decompensated HF requiring BIPAP and IV diuretics. Patient is a resident of [place], [place] who has been in town the last 2 weeks to visit brother. She apparently ran out of her medications over the last several days resulting in worsening fluid retention, SOB, HTN. Upon arrival to ER, she was found to be hypoxic and placed on BIPAP due to elevated CO2. Treated with IV lasix. Oral home antihypertensives resumed EKG demonstrating NSR without acute ischemic changes. HS troponin 18 and 17 BNP elevated Chest xray with pulm vascular congestion and pleural thickening with possible consolidation Started on IV lasix. At time of consult, patient resting in bed. Repeatedly falling asleep during conversation and exam. Reports feeling "better" than admission. SOB improving. BP also improving this morning. No chest pain. Ongoing LE edema noted. Allergies Allergy/AdvReac Type Severity Reaction Status Date / Time No Known Allergies Allergy Verified 01/09/25 00:24 Home Medications Medication Instructions Recorded Confirmed Type carvedilol 3.125 mg tablet 3.125 mg PO AMPM 01/09/25 01/09/25 History cholecalciferol (vitamin D3) 25 25 mcg PO DAILY 01/09/25 01/09/25 History mcg (1,000 unit) tablet (Vitamin D3) cyanocobalamin (vitamin B-12) 1,000 mcg PO DAILY 01/09/25 01/09/25 History 1,000 mcg tablet escitalopram oxalate 10 mg tablet 10 mg PO QAM 01/09/25 01/09/25 History hydroxyzine HCl 25 mg tablet 25 mg PO TID PRN Anxiety 01/09/25 01/09/25 History insulin glargine 100 unit/mL (3 12 unit subcut HS 01/09/25 01/09/25 History mL) subcutaneous pen (Basaglar KwikPen U-100 Insulin) simvastatin 20 mg tablet 20 mg PO QPM 01/09/25 01/09/25 History torsemide 20 mg tablet 60 mg PO QAM 01/09/25 01/09/25 History tramadol 50 mg tablet 50 mg PO Q8 PRN Moderate Pain 01/09/25 01/09/25 History (Scale Score 5-6) Patient History Social History Smoking Status: Former smoker Tobacco Type: Cigarettes Preferred Language: Serbian Feels Safe at Home: Yes Review of Systems Review of Systems: All systems reviewed & are unremarkable except as noted in HPI & below Physical Exam Constitutional: WD/WN, vitals as above + morbidly obese Neck: + thick neck Respiratory: Auscultation: + diminished lung sounds, + rales and + rhonchi Cardiovascular: Rate/Rhythm: regular rate and regular rhythm Heart Sounds: no murmur (No audible murmur, distant heart sounds) Vessels: + JVD Extremities: + edema (2+ LE edema with chronic stasis changes and likely venous ulcerations) Gastrointestinal (Abdomen): normal bowel sounds, soft, nontender, no hepatosplenomegaly Neurologic: PERRL, EOMI, accommodation nl, no face palsy, no dysarthria Results & Data Vital Signs (Past 12 Hours) Vital Signs Temp Pulse Pulse Resp BP BP Pulse Ox 01/09/25 07:08 67 01/09/25 07:08 36.4 C L 66 18 155/69 H 100 01/09/25 06:05 65 180/90 H 01/09/25 05:19 100 01/09/25 05:00 66 18 188/89 H 100 01/09/25 04:03 65 21 100 01/09/25 04:00 100 01/09/25 03:00 67 18 170/97 H 97 01/09/25 02:22 64 01/09/25 01:00 90 18 169/90 H 97 01/09/25 00:24 94 01/08/25 23:26 70 18 170/90 H 96 01/08/25 22:29 74 01/08/25 21:59 97 01/08/25 21:59 36.5 C 74 20 156/106 H 97 O2 Del Method O2 Flow Rate FiO2 01/09/25 07:08 01/09/25 07:08 Nasal Cannula 4 01/09/25 06:05 01/09/25 05:19 BiPAP 01/09/25 05:00 BiPAP 01/09/25 04:03 40 01/09/25 04:00 BiPAP 01/09/25 03:00 Nasal Cannula 4 01/09/25 02:22 01/09/25 01:00 Nasal Cannula 4 01/09/25 00:24 Nasal Cannula 2 01/08/25 23:26 Room Air 01/08/25 22:29 01/08/25 21:59 Nasal Cannula 2 01/08/25 21:59 Nasal Cannula 2 Laboratory Results Cardiac Enzymes 01/09/25 01/09/25 Range/Units 00:24 02:24 AST 13 (13-39) U/L Troponin I High Sens 18.0 H 17.4 H (0-14) pg/ml B-Natriuretic Peptide 578 H (0-100) pg/ml Coagulation 01/09/25 Range/Units 00:24 PT 11.1 (9.0-12.0) Seconds APTT 27 (21-31) Seconds B-Natriuretic Peptide 578 H (0-100) pg/ml CBC 01/09/25 Range/Units 00:24 WBC 6.27 (4.8-10.8) K/ul RBC 4.95 (4.20-5.40) M/uL Hgb 12.6 (12.0-16.0) g/dl Hct 42.2 (37.0-47.0) % Plt Count 252 (130-400) K/uL Neut # (Auto) 4.81 (1.40-6.50) K/uL Lymph # (Auto) 0.67 L (1.20-3.40) K/uL [place] # (Auto) 0.55 (0.11-0.59) K/uL Eos # (Auto) 0.17 (0.00-0.50) K/uL Baso # (Auto) 0.05 (0.00-0.20) K/uL Comprehensive Metabolic Panel 01/09/25 Range/Units 00:24 Sodium 136 (136-145) mmol/L Potassium 4.4 (3.5-5.1) mmol/L Chloride 102 (98-107) mmol/L Carbon Dioxide 30 (21-32) mmol/L BUN 47 H (6-23) mg/dl Creatinine 1.59 H (0.6-1.2) mg/dl Glucose 172 H (70-99(Fasting)) mg/dl Calcium 8.5 L (8.6-10.3) mg/dl AST 13 (13-39) U/L ALT 8 (7-52) U/L Alkaline Phosphatase 77 (34-104) U/L Total Protein 6.8 (6.0-8.3) gm/dl Albumin 3.6 (3.4-5.0) gm/dl Intake and Output 01/08/25 01/09/25 01/09/25 22:59 06:59 14:59 Intake Total 100 / 100 Balance 100 / 100 Intake: IV 100 / 100 Magnesium Sulfate / D5w 1 gm In 100 / 100 100 ml @ 50 mls/hr IV ONE ONE Rx#:[id number] Other: # Unmeasured Voids 1 Weight 124.9 kg Weight Measurement Method Built in [facility] Diagnostic Findings Telemetry reviewed: NSR, no arrhythmias noted EKG reviewed: NSR at 68 bmp, non specific ST/T wave abnormality in inferior leads Chest X-Ray 01/09/25 00:24 IMPRESSION: Enlarged heart with prominent perihilar and right lower zone bronchovascular markings, representing pulmonary vascular congestion. (unchanged). Blunting of left costophrenic angle, representing mild pleural thickening(unchanged). Possible consolidation/atelectasis left lower zone. Concur with CT findings. Electronically signed by Jacky Villasenor 01-09-2025 02:34 AM Chest CTA 01/09/25 00:26 IMPRESSION: No evidence of pulmonary embolism. Dilated main pulmonary artery - Suggest 2D ECHO correlation for pulmonary hypertension. Mild left basal pleural thickening. Mild dependant reticular and ill defined ground glass opacities in basal segments of left lower lobe. Mild cardiomegaly. Cholelithiasis. Splenomegaly Perinephric fat stranding around left kidney. Mild ascites Electronically signed by Darrius Aguilar 01-09-2025 02:51 AM Prior data reviewed: Limited echo reviewed from Sep 2024: Interpretation Summary The primary indication after review was deemed appropriate and the examination was performed. The examination is limited quality but adequate for evaluation of the referral indication. There was normal sinus rhythm during the examination. The qualitative LV ejection fraction is 60-64% (normal). The right ventricular cavity is moderately dilated. The right ventricular systolic function is mildly reduced . Dilated IVC with reduced collapsability with sniff indicates an elevated right atrial pressure of 15mmHg. Compared to last available study, there has been no interval change. ECHO: 09/16/23 Interpretation Summary The examination is adequate to evaluate the referral indication. The qualitative LV ejection fraction is 55-59% (normal). The left ventricular wall motion is normal. Mild tricuspid regurgitation is present. The estimated pulmonary artery systolic pressure is 40-45mm Hg. Medications Administered Current Inpatient Medications Acetaminophen (Acetaminophen 325 Mg Tab) 650 mg PO QID PRN PRN Reason: pain/fever Stop: 02/08/25 04:44 Amlodipine Besylate (Amlodipine Besylate 5 Mg Tab) 2.5 mg PO QAM ALBERTO Stop: 02/08/25 08:59 Last Admin: 01/09/25 09:44 Dose: 2.5 mg Carvedilol (Carvedilol 3.125 Mg Tab) 3.125 mg PO BID ALBERTO Stop: 02/08/25 20:59 Cyanocobalamin (Cyanocobalamin (B-12) 500 Mcg Tablet) 1,000 mcg PO DAILY ALBERTO Stop: 02/08/25 08:59 Last Admin: 01/09/25 09:44 Dose: 1,000 mcg Dextrose (Dextrose 50% 50 Ml Syringe) 25 - 50 ml IV UD PRN; Protocol PRN Reason: Hypoglycemia Protocol Stop: 02/08/25 05:18 Escitalopram Oxalate (Escitalopram Oxalate 10 Mg Tab) 10 mg PO QAM ALBERTO Stop: 02/08/25 08:59 Last Admin: 01/09/25 09:53 Dose: 10 mg Furosemide (Furosemide 40 Mg/4 Ml Vial) 60 mg IV BID17 ALBERTO Stop: 01/09/25 17:01 Last Admin: 01/09/25 09:45 Dose: 60 mg Glucagon (Glucagon For Inj 1 Mg Vial) 1 mg SQ UD PRN; Protocol PRN Reason: Hypoglycemia Protocol Stop: 02/08/25 05:18 Glucose (Glucose 40% Gel 15 Gm Tube) 15 - 30 gm PO UD PRN; Protocol PRN Reason: Hypoglycemia Protocol Stop: 02/08/25 05:18 Glucose (Glucose 10 Tab/Tube) 4 - 8 tab PO UD PRN; Protocol PRN Reason: Hypoglycemia Protocol Stop: 02/08/25 05:18 Heparin Sodium (Porcine) (Heparin Sod 5,000 Unit/0.5 Ml Vial) 5,000 units SQ Q8H ALBERTO Stop: 02/08/25 05:59 Last Admin: 01/09/25 06:21 Dose: 5,000 units Hydroxyzine HCl (Hydroxyzine Hcl 25 Mg Tab) 25 mg PO TID PRN PRN Reason: Anxiety Stop: 02/08/25 04:43 Last Admin: 01/09/25 07:34 Dose: 25 mg Promethazine HCl (Phenergan) 6.25 mg in 50.25 mls @ 201 mls/hr IV Q6H PRN PRN Reason: Nausea And Vomiting Stop: 02/08/25 04:44 Insulin Aspart (Insulin Aspart Per Unit Charge) 0 units SC ACHS ALBERTO Stop: 02/08/25 05:18 Last Admin: 01/09/25 06:42 Dose: 2 units Insulin Glargine (Lantus Per Unit Charge) 5 units SQ HS ALBERTO Stop: 02/08/25 20:59 Miscellaneous (Carbohydrates For Hypoglycemia ) 15 - 30 gm PO UD PRN PRN Reason: Hypoglycemia Protocol Stop: 02/08/25 05:18 Simvastatin (Simvastatin 20 Mg Tab) 20 mg PO QPM ALBERTO Stop: 02/08/25 20:59 Tramadol HCl (Tramadol Hcl 50 Mg Tablet) 50 mg PO Q8 PRN PRN Reason: Moderate Pain (Scale Score 5-6) Stop: 02/08/25 04:43 Vitamin D (Cholecalciferol 25 Mcg (1000 Units) Tab) 25 mcg PO DAILY [facility] Stop: 02/08/25 08:59 Last Admin: 01/09/25 09:44 Dose: 25 mcg
[2025-01-09 09:41] LABS: Base Excess VBG 0.6 mEq/L; HCO3 VBG 29 mmol/L; Oxygen Saturation VBG 80.5 %; PCO2 VBG 67 mmHg (38-50); PO2 VBG 51 mmHg; pH VBG 7.25 (7.36-7.41)
[2025-01-09] MEDS: CHOLECALCIFEROL 25 MCG (1000 UNITS) TAB PO SCH (09:44)
[2025-01-09] MEDS: CYANOCOBALAMIN (B-12) 500 MCG TABLET PO SCH (09:44)
[2025-01-09] MEDS: amLODIPine BESYLATE 5 MG TAB PO SCH (09:44)
[2025-01-09] MEDS: FUROSEMIDE 40 MG/4 ML VIAL IV SCH (09:45)
[2025-01-09] MEDS: ESCITALOPRAM OXALATE 10 MG TAB PO SCH (09:53)
--- NOTE | 2025-01-09 14:21 | Electrocardiogram Report ---
Test Reason : Blood Pressure : */* mmHG Vent. Rate : 68 BPM Atrial Rate : 68 BPM P-R Int : 150 ms QRS Dur : 82 ms QT Int : 420 ms P-R-T Axes : 84 45 -3 degrees QTcB Int : 446 ms Normal sinus rhythm Normal ECG No previous ECGs available Confirmed by Mario Cantrell ([id number]) on 01/09/2025 2:21:23 PM Referred By: REFERRED SELF Confirmed By: Mario Cantrell
[2025-01-09 15:49] LABS: Base Excess VBG 0.5 mEq/L; HCO3 VBG 30 mmol/L; Oxygen Saturation VBG 79.1 %; PCO2 VBG 71 mmHg (38-50); PO2 VBG 49 mmHg; pH VBG 7.23 (7.36-7.41)
--- NOTE | 2025-01-09 17:44 | Pulmonary Consultation ---
Date of Consultation January 09, 2025 Assessment & Plan (1) Acute hypercapnic respiratory failure: Patient with underlying OHS and now acute on chronic hypercapnic respiratory failure. She has a history of CPAP noncompliance. She notes that she has a CPAP at home, but rarely uses it. Continue BiPAP until VBG is normalized. Patient does have an extensive smoking history. (2) Acute on chronic heart failure with preserved ejection fraction: Agree with IV diuretics. Follow urine output closely. (3) SOB (shortness of breath): Secondary to underlying pulmonary hypertension and diastolic heart failure. Unclear whether the patient has underlying COPD, but she does have an extensive smoking history. No signs of bronchospasm at present. Will hold on systemic corticosteroids. (4) Pulmonary hypertension: Likely WHO group 2 and 3. Doubtful of WHO Group 1 pulmonary pretension. History of Present Illness Attending Physician: Ivan Perez MD History of Present Illness 69-year-old female with a history of tobacco abuse, COPD, chronic respiratory failure on home oxygen, diastolic heart failure, secondary pulmonary hypertension and diabetes mellitus who presented to the hospital with severe shortness of breath. Patient has had increased in weight gain and blood pressure over the last few days. Patient ran out of her medications. She called 911 and was found to be hypertensive in the ER, confused and hypoxemic. Blood gases have been consistent with acute respiratory acidosis. She denies any significant shortness of breath at present. Allergies Allergy/AdvReac Type Severity Reaction Status Date / Time No Known Allergies Allergy Verified 01/09/25 00:24 Home Medications Medication Instructions Recorded Confirmed Type carvedilol 3.125 mg tablet 3.125 mg PO AMPM 01/09/25 01/09/25 History cholecalciferol (vitamin D3) 25 25 mcg PO DAILY 01/09/25 01/09/25 History mcg (1,000 unit) tablet (Vitamin D3) cyanocobalamin (vitamin B-12) 1,000 mcg PO DAILY 01/09/25 01/09/25 History 1,000 mcg tablet escitalopram oxalate 10 mg tablet 10 mg PO QAM 01/09/25 01/09/25 History hydroxyzine HCl 25 mg tablet 25 mg PO TID PRN Anxiety 01/09/25 01/09/25 History insulin glargine 100 unit/mL (3 12 unit subcut HS 01/09/25 01/09/25 History mL) subcutaneous pen (Basaglar KwikPen U-100 Insulin) simvastatin 20 mg tablet 20 mg PO QPM 01/09/25 01/09/25 History torsemide 20 mg tablet 60 mg PO QAM 01/09/25 01/09/25 History tramadol 50 mg tablet 50 mg PO Q8 PRN Moderate Pain 01/09/25 01/09/25 History (Scale Score 5-6) Patient History Social History Smoking Status: Former smoker Tobacco Type: Cigarettes Preferred Language: Italian Feels Safe at Home: Yes Review of Systems Review of Systems: All systems reviewed & are unremarkable except as noted in HPI & below Physical Exam Constitutional: WD/WN, vitals as above + morbidly obese Neck: + thick neck Respiratory: Auscultation: + diminished lung sounds and + rales Cardiovascular: Rate/Rhythm: regular rate and regular rhythm Heart Sounds: no murmur (No audible murmur, distant heart sounds) Vessels: + JVD Extremities: + edema Gastrointestinal (Abdomen): normal bowel sounds, soft, nontender, no hepatosplenomegaly Neurologic: PERRL, EOMI, accommodation nl, no face palsy, no dysarthria Results & Data Results & Data Vital Signs (Past 12 Hours) Vital Signs Temp Pulse Pulse Resp BP BP Pulse Ox 01/09/25 16:51 58 L 20 97 01/09/25 16:00 01/09/25 15:07 61 01/09/25 15:00 60 23 121/61 98 01/09/25 10:49 36.5 C 84 22 134/83 95 01/09/25 10:48 01/09/25 07:08 67 01/09/25 07:08 36.4 C L 66 18 155/69 H 100 01/09/25 06:05 65 180/90 H Pulse Ox O2 Del Method O2 Del Method O2 Flow Rate O2 Flow Rate FiO2 01/09/25 16:51 40 01/09/25 16:00 98 Nasal Cannula 4 01/09/25 15:07 01/09/25 15:00 Nasal Cannula 4 01/09/25 10:49 Nasal Cannula 4 01/09/25 10:48 95 Nasal Cannula 3 01/09/25 07:08 01/09/25 07:08 Nasal Cannula 4 01/09/25 06:05 PG Care Time/CCT Total # of Minutes Spent Total Time Spent with Patient: Total time spent is greater than 50% in coordination of care (as documented) at patient's floor/unit and/or counseling patient: Coding Level of Care Code 08445 INT INP/OBS CARE MIN Diagnoses Acute hypercapnic respiratory failure J96.02 Acute on chronic heart failure with preserved ejection fraction I50.33 SOB (shortness of breath) R06.02 Pulmonary hypertension I27.20
[2025-01-09] MEDS: ACETAMINOPHEN 325 MG TAB PO PRN (22:13)
[2025-01-09] MEDS: LANTUS PER UNIT CHARGE SQ SCH (22:13)
[2025-01-09] MEDS: SIMVASTATIN 20 MG TAB PO SCH (22:15)
[2025-01-09] MEDS: carvediloL 3.125 MG TAB PO SCH (22:45)
[2025-01-10 06:09] LABS: Base Excess VBG 0.4 mEq/L; HCO3 VBG 30 mmol/L; Oxygen Saturation VBG 83.7 %; PCO2 VBG 69 mmHg (38-50); PO2 VBG 54 mmHg; pH VBG 7.24 (7.36-7.41)
[2025-01-10 06:20] LABS: Basophils # (auto) 0.04 K/uL (0.00-0.20); Basophils % (auto) 0.9 %; Eosinophils # (auto) 0.19 K/uL (0.00-0.50); Eosinophils % (auto) 4.1 %; Hematocrit (blood only) 39.2 % (37.0-47.0); Hemoglobin 11.6 g/dl (12.0-16.0); Immature Granulocytes # (auto) 0.01 K/uL (0.01-0.20); Immature Granulocytes % (auto) 0.2 %; Lymphocytes # (auto) 0.85 K/uL (1.20-3.40); Lymphocytes % (auto) 18.2 %; Mean Corpuscular Hemoglobin 25.3 pg (25.0-34.0); Mean Corpuscular Hgb Conc 29.6 g/dL (32.0-36.0); Mean Corpuscular Volume 85.6 fL (80.0-100.0); Mean Platelet Volume 9.6 fL (9.4-12.4); Monocytes % (auto) 12.8 %; Neutrophils # (auto) 2.98 K/uL (1.40-6.50); Neutrophils % (auto) 63.8 %; Platelet Count 224 K/uL (130-400); RDW Coefficient of Variation 16.6 % (11.5-14.5); RDW Standard Deviation 51.8 fL (36.4-46.3); Red Blood Count 4.58 M/uL (4.20-5.40); White Blood Count 4.67 K/ul (4.8-10.8)
[2025-01-10 06:45] LABS: BUN Creatinine Ratio 27.2 (10-20); Creatinine Clr Calc Pharmacy 45.7 ml/min; Potassium 4.1 mmol/L (3.5-5.1)
[2025-01-10] MEDS: PROMETHAZINE 6.25 MG/50.25 ML BAG IV PRN (09:20)
[2025-01-10 12:49] LABS: Base Excess VBG 4.3 mEq/L; HCO3 VBG 32 mmol/L; Oxygen Saturation VBG 92.2 %; PCO2 VBG 64 mmHg (38-50); PO2 VBG 64 mmHg; pH VBG 7.31 (7.36-7.41)
--- NOTE | 2025-01-10 12:49 | Cardiology Progress Note ---
<Statement entered by Claudia Crews, - 01/10/25 21:49> I have reviewed the advanced practitioner's documentation and agree with the plan of care. I accept the responsibility for the associated risk. pt seen in cardiology f/u due to acute on chronic heart failure with preserved EF-NYHA Class III in the setting of acute respiratory failure and Pickwickian syndrome: continue IV lasix add metolazone continue other cardiac medications might need additional BP medications Date of Service January 10, 2025 Assessment & Plan (1) Acute and chronic respiratory failure with hypercapnia: (2) Pickwickian syndrome: (3) Acute on chronic heart failure with preserved ejection fraction: (4) Hypertensive urgency: Plan Patient admitted with multifactorial SOB/hypoxia, hypertensive urgency secondary to non compliance with her outpatient diuretics and antihypertensive therapy. History of morbid obesity, chronic respiratory failure/pickwickian, PAOLA with CPAP, HFpEF with several admissions over the last 6 months to [facility], treated with IV lasix and BIPAP therapy. Acute HFpEF -Continue IV lasix 60 mg BID - Weight has trended down 7 kg? - Patient reported she still feels volume overloaded will give metolazone in addition to Lasix today - Once euvolemic can transition back to torsemide home dose was 60 mg daily which she reported was doing well until she ran out of medication -Monitor I+O's -Fluid restriction of 1500 ml -Monitor renal function/electrolytes -Daily weight with standing scale -Patient follows with [facility] [place] - Per review of records she has not been on guideline directed medical therapies with CHRISTOPHER/ARB, spironolactone due to baseline renal insufficiency? Hypertensive urgency -Due to non compliance with oral medications -Carvedilol 3.125 mg BID resumed -Continue IV diuretics -Amlodipine 2.5 mg daily also added. -Could consider low dose CHRISTOPHER/ARB vs Entresto as an outpatient based on renal funciton. -BP improved PAOLA -continue CPAP -compliance encouraged Case discussed with Dr. Crews. Please see attestation for additional recommendations. AZEEM Bledsoe Department of Cardiology, [facility] This chart was completed in part utilizing Speech Voice Recognition Software. Grammatical errors, random word insertions, pronoun errors, and incomplete sentences are an occasional consequence of this system due to software limitations, ambient noise, and hardware issues. Any formal questions or concerns about the content, text, or information contained within the body of this dictation should be directly addressed to the provider for clarification. Admission and Anticipated Discharge Date Admission Date: January 09, 2025 Subjective 69-year-old female seen in cardiology follow-up in regard to acute on chronic respiratory failure with acute on chronic diastolic CHF. She is having good urine output with IV diuresis but still feels somewhat volume overloaded. Review of Systems Constitutional: + weight gain; no fever and no chills Respiratory: + cough and + dyspnea on exertion Cardiovascular: + edema; no chest pain Gastrointestinal: no abdominal pain and no vomiting Psychiatric: + anxiety Physical Exam Constitutional: WD/WN, vitals as above well developed and + overweight Eyes: PERRL, conjunctivae normal, anicteric sclerae Neck: trachea midline, no thyromegaly Respiratory: normal respiratory effort Auscultation: + diminished lung sounds Cardiovascular: Rate/Rhythm: regular rate and regular rhythm Vessels: no JVD Extremities: + edema Gastrointestinal (Abdomen): normal bowel sounds, soft, nontender, no hepatosplenomegaly Skin: no rashes, warm and dry Psychiatric: A+Ox3, euthymic affect Results & Data Vital Signs (Past 12 Hours) Vital Signs Temp Pulse Pulse Resp BP Pulse Ox O2 Del Method 01/10/25 11:30 36.6 C 66 16 115/74 99 BiPAP 01/10/25 10:56 69 18 96 01/10/25 10:35 70 110/90 01/10/25 08:00 Nasal Cannula 01/10/25 07:35 36.7 C 60 18 103/70 95 BiPAP 01/10/25 07:32 65 18 95 01/10/25 03:08 36.6 C 51 L 20 96/63 L 96 BiPAP 01/10/25 02:45 21 96 O2 Flow Rate FiO2 01/10/25 11:30 01/10/25 10:56 01/10/25 10:35 01/10/25 08:00 4 01/10/25 07:35 01/10/25 07:32 01/10/25 03:08 01/10/25 02:45 40 Laboratory Results CBC 01/10/25 Range/Units 05:54 WBC 4.67 L (4.8-10.8) K/ul RBC 4.58 (4.20-5.40) M/uL Hgb 11.6 L (12.0-16.0) g/dl Hct 39.2 (37.0-47.0) % Plt Count 224 (130-400) K/uL Neut # (Auto) 2.98 (1.40-6.50) K/uL Lymph # (Auto) 0.85 L (1.20-3.40) K/uL [place] # (Auto) 0.60 H (0.11-0.59) K/uL Eos # (Auto) 0.19 (0.00-0.50) K/uL Baso # (Auto) 0.04 (0.00-0.20) K/uL Comprehensive Metabolic Panel 01/10/25 Range/Units 05:54 Sodium 140 (136-145) mmol/L Potassium 4.1 (3.5-5.1) mmol/L Chloride 103 (98-107) mmol/L Carbon Dioxide 32 (21-32) mmol/L BUN 41 H (6-23) mg/dl Creatinine 1.51 H (0.6-1.2) mg/dl Glucose 83 (70-99(Fasting)) mg/dl Calcium 8.0 L (8.6-10.3) mg/dl Intake and Output 01/09/25 01/10/25 01/10/25 22:59 06:59 14:59 Intake Total 50.25 / 50.25 Balance 50.25 / 50.25 Intake: IV 50.25 / 50.25 Promethazine 6.25 mg In 50.25 50.25 / 50.25 ml @ 201 mls/hr IV Q6H PRN Rx#: [id number] Other: # Unmeasured Voids 1 Weight 124.9 kg 118.2 kg 118.2 kg Weight Measurement Method [facility] Patient Weight 01/11/25 06:59 Weight 118.2 kg Diagnostic Findings Laboratory Results WBC 4.67 K/ul (4.8-10.8) L 01/10/25 05:54 RBC 4.58 M/uL (4.20-5.40) 01/10/25 05:54 Hgb 11.6 g/dl (12.0-16.0) L 01/10/25 05:54 Hct 39.2 % (37.0-47.0) 01/10/25 05:54 MCV 85.6 fL (80.0-100.0) 01/10/25 05:54 MCH 25.3 pg (25.0-34.0) 01/10/25 05:54 MCHC 29.6 g/dL (32.0-36.0) L 01/10/25 05:54 RDW Std Deviation 51.8 fL (36.4-46.3) H 01/10/25 05:54 RDW Coeff of Otto 16.6 % (11.5-14.5) H 01/10/25 05:54 Plt Count 224 K/uL (130-400) 01/10/25 05:54 MPV 9.6 fL (9.4-12.4) 01/10/25 05:54 Immature Gran % (Auto) 0.2 % 01/10/25 05:54 Neut % (Auto) 63.8 % 01/10/25 05:54 Lymph % (Auto) 18.2 % 01/10/25 05:54 [place] % (Auto) 12.8 % 01/10/25 05:54 Eos % (Auto) 4.1 % 01/10/25 05:54 Baso % (Auto) 0.9 % 01/10/25 05:54 Neut # (Auto) 2.98 K/uL (1.40-6.50) 01/10/25 05:54 Lymph # (Auto) 0.85 K/uL (1.20-3.40) L 01/10/25 05:54 [place] # (Auto) 0.60 K/uL (0.11-0.59) H 01/10/25 05:54 Eos # (Auto) 0.19 K/uL (0.00-0.50) 01/10/25 05:54 Baso # (Auto) 0.04 K/uL (0.00-0.20) 01/10/25 05:54 Immature Gran # (Auto) 0.01 K/uL (0.01-0.20) 01/10/25 05:54 PT 11.1 Seconds (9.0-12.0) 01/09/25 00:24 INR 1.0 (0.9-1.1) 01/09/25 00:24 APTT 27 Seconds (21-31) 01/09/25 00:24 PTT Ratio 1.0 01/09/25 00:24 VBG pH 7.24 (7.36-7.41) L 01/10/25 05:58 VBG pCO2 69 mmHg (38-50) H 01/10/25 05:58 VBG pO2 54 mmHg 01/10/25 05:58 VBG HCO3 30 mmol/L 01/10/25 05:58 VBG O2 Saturation 83.7 % 01/10/25 05:58 VBG Base Excess 0.4 mEq/L 01/10/25 05:58 Sodium 140 mmol/L (136-145) 01/10/25 05:54 Potassium 4.1 mmol/L (3.5-5.1) 01/10/25 05:54 Chloride 103 mmol/L (98-107) 01/10/25 05:54 Carbon Dioxide 32 mmol/L (21-32) 01/10/25 05:54 Anion Gap 5 (3-11) 01/10/25 05:54 BUN 41 mg/dl (6-23) H 01/10/25 05:54 Creatinine 1.51 mg/dl (0.6-1.2) H 01/10/25 05:54 Est Cr Clr Drug Dosing 45.7 ml/min 01/10/25 05:54 eGFR 37.66 01/10/25 05:54 BUN/Creatinine Ratio 27.2 (10-20) H 01/10/25 05:54 Glucose 83 mg/dl (70-99(Fasting)) 01/10/25 05:54 POC Glucose 174 mg/dl (70-99) H 01/10/25 11:29 Calcium 8.0 mg/dl (8.6-10.3) L 01/10/25 05:54 Magnesium 1.8 mg/dl (1.7-2.4) 01/09/25 00:24 Total Bilirubin 0.6 mg/dl (0.2-1.0) 01/09/25 00:24 AST 13 U/L (13-39) 01/09/25 00:24 ALT 8 U/L (7-52) 01/09/25 00:24 Alkaline Phosphatase 77 U/L (34-104) 01/09/25 00:24 Troponin I High Sens 17.4 pg/ml (0-14) H 01/09/25 02:24 B-Natriuretic Peptide 578 pg/ml (0-100) H 01/09/25 00:24 Total Protein 6.8 gm/dl (6.0-8.3) 01/09/25 00:24 Albumin 3.6 gm/dl (3.4-5.0) 01/09/25 00:24 Globulin 3.2 gm/dl (2.5-4.0) 01/09/25 00:24 Albumin/Globulin Ratio 1.1 (0.9-2) 01/09/25 00:24 Lipase 35 U/L (11-82) 01/09/25 00: TSH 2.615 uIu/ml (0.300-4.500) 01/09/25 02:24 Urine Color Yellow 01/09/25 00:24 Urine Appearance Clear (Clear) 01/09/25 00:24 Urine pH 5.0 (4.5-7.5) 01/09/25 00:24 Ur Specific [place] 1.009 (1.000-1.030) 01/09/25 00:24 Urine Protein 1+ (Negative) H 01/09/25 00:24 Urine Glucose (UA) Negative (Negative) 01/09/25 00:24 Urine Ketones Negative (Negative) 01/09/25 00:24 Urine Blood Negative (Negative) 01/09/25 00:24 Urine Nitrite Negative (Negative) 01/09/25 00:24 Urine Bilirubin Negative (Negative) 01/09/25 00:24 Urine Urobilinogen Negative (Negative) 01/09/25 00:24 Ur Leukocyte Esterase Negative (Negative) 01/09/25 00:24 Urine WBC (Auto) 0-5 /hpf (0-5) 01/09/25 00:24 Urine RBC (Auto) 0-2 /hpf (0-2) 01/09/25 00:24 U Hyaline Cast (Auto) 3-5 /lpf (0-2) H 01/09/25 00:24 U Epithel Cells (Auto) 0-2 /hpf (0-2) 01/09/25 00:24 Urine Bacteria (Auto) None Seen (None Seen) 01/09/25 00:24 SARS-CoV-2 (PCR) NEGATIVE (Negative) 04/18/25 02:26 Influenza Type A (PCR) Negative (Neg) 01/09/25 02:26 Influenza Type B (PCR) Negative (Neg) 01/09/25 02:26 RSV (RT-PCR) Negative (Neg) 01/09/25 02:26 Impressions Chest X-Ray 01/09/25 00:24 EXAM: XR chest 1V portable CLINICAL HISTORY: Shortness of breath and history of congestive heart failure. TECHNIQUE: An X-ray image of the chest is obtained using an AP projection. COMPARISON: The available current CT chest PE protocol is reviewed. FINDINGS: Pulmonary Parenchyma: Prominent perihilar and right lower zone bronchovascular markings. Possible consolidation/atelectasis left lower zone. No pulmonary nodules are identified. Blunting of left costophrenic angle, representing mild pleural thickening. Heart and Mediastinum: The heart is enlarged. No mediastinal widening or masses. No hilar or mediastinal lymphadenopathy. Bony Thorax: Bony thorax appears intact without fractures or deformities. Soft Tissues: Elevated left diaphragm. IMPRESSION: Enlarged heart with prominent perihilar and right lower zone bronchovascular markings, representing pulmonary vascular congestion. (unchanged). Blunting of left costophrenic angle, representing mild pleural thickening(unchanged). Possible consolidation/atelectasis left lower zone. Concur with CT findings. Electronically signed by Jacky Villasenor 01-09-2025 02:34 AM Abdomen/Pelvis CT 01/09/25 00:26 EXAM: CT abd pelvis IV con only CLINICAL HISTORY: Abdominal pain TECHNIQUE: Multiple contiguous axial images were obtained from the level of diaphragm to the pubis symphysis. This study was acquired after the IV administration of iodinated contrast material, given the patient's indications for the examination. If IV contrast material had not been administered, the likelihood of detecting abnormalities relevant to the patient's condition would have been substantially decreased. Coronal and sagittal reformatted images were generated and reviewed to improve anatomic localization and optimize lesion detection. CT scan was performed according to ALARA (as low as reasonably achievable). COMPARISON: none FINDINGS: The visualized lung bases shows patchy consolidation in lingula and minimal left pleural effusion. Elevated left posterior hemidiaphragm. Cardiomegaly is detected. Minimal pericardial effusion is seen. ABDOMEN/PELVIS: Heterogeneous enhancement of the liver parenchyma is noted with patchy areas of hypodensities within. This could be due to secondary to underlying perfusion abnormality due to cardiac cause (in the background of diffuse subcutaneous edema). There is no intra or extrahepatic biliary ductal dilatation. Hepatic vasculature is patent. The gallbladder shows multiple small 2-3mm calculi within. Diffuse gallbladder wall edema is noted, likely pseudo edema due to underlying hepatic all cardiac cause rather than acute cholecystitis. Mild peripancreatic fat stranding at head region, mesentery and periduodenal region(D2 and D3 segment) with edematous wall thickening of duodenum. Perisplenic fluid is seen. The spleen and adrenal glands are unremarkable. The kidneys are normal in size and attenuation. There is no hydronephrosis. Bilateral perinephric fat stranding. No renal calculi or renal masses are identified. The ureters are normal in caliber and no ureteral calculi are seen. The bladder is mildly filled. Uterus and adnexa are unremarkable. No evidence of bowel obstruction is seen. The aorta is normal in caliber. No aggressive appearing osseous lesions are identified. Diffuse subcutaneous edema/thickening seen in lower anterior abdominal wall. IMPRESSION: 1. Cardiomegaly is detected. Minimal pericardial effusion is seen. 2. Mild peripancreatic fat stranding at head region, mesentery and periduodenal region(D2 and D3 segment) with edematous wall thickening of duodenum. Possible early interstitial pancreatitis/groove pancreatitis. Suggested serum amylase/lipase correlation. 3. Heterogeneous enhancement of the liver parenchyma is noted with patchy areas of hypodensities within. This could be due to secondary to underlying perfusion abnormality due to cardiac cause (in the background of diffuse subcutaneous edema). Suggested clinical/echocardiography correlation. 4. Perisplenic fluid is seen. 5. Cholelithiasis. Diffuse gallbladder wall edema is noted, likely pseudo edema due to underlying hepatic or cardiac cause more than acute cholecystitis. 6. Bilateral perinephric fat stranding. Suggested renal function test correlation. 7. Visualized lung bases shows patchy consolidation in lingula and minimal left pleural effusion. 8. Diffuse subcutaneous edema/thickening seen in lower anterior abdominal wall. Electronically signed by Darrius Aguilar 01-09-2025 03:02 AM Chest CTA 01/09/25 00:26 EXAM: CT angio chest PE protocol CLINICAL HISTORY: PE TECHNIQUE: Contiguous axial images were obtained from the neck base through the upper abdomen following intravenous administration of iodinated contrast material. Angiographic images were processed, 3D MIP images were acquired for interpretation. If IV contrast material had not been administered, the likelihood of detecting abnormalities relevant to the patient's condition would have been substantially decreased. Coronal and sagittal 3-D MIPs were likewise performed and indicated to increase the sensitivity of detectin diffuse clinically relevant pathology. CT scan was performed according to ALARA (as low as reasonable achievable). COMPARISON: none FINDINGS: Partial image degradation due to respiration related artefacts. Adequate contrast bolus without evidence of pulmonary embolism in main, left and right pulmonary and segmental arteries in both lungs. Subsegmental arteries are sub optimally visualsied due to partial image degradation. The central airways are patent. Mild left basal pleural thickening. Mild dependant reticular and ill defined ground glass opacities in basal segments of left lower lobe. Rest of the lungs are clear. No pleural effusion. The heart is mildly enlarged. Aorta is of normal size and configuration. There are no appreciable coronary artery and aortic atherosclerotic calcifications. No pericardial effusion is identified. The thyroid is unremarkable. No mediastinal, hilar, or axillary lymphadenopathy is noted. No suspicious lytic or sclerotic osseous lesions are identified. Cholelithiasis. splenomegaly perinephric fat stranding around left kidney. Mild ascites IMPRESSION: No evidence of pulmonary embolism. Dilated main pulmonary artery - Suggest 2D ECHO correlation for pulmonary hypertension. Mild left basal pleural thickening. Mild dependant reticular and ill defined ground glass opacities in basal segments of left lower lobe. Mild cardiomegaly. Cholelithiasis. Splenomegaly Perinephric fat stranding around left kidney. Mild ascites Electronically signed by Darrius Aguilar 01-09-2025 02:51 AM Medications Administered Current Inpatient Medications Acetaminophen (Acetaminophen 325 Mg Tab) 650 mg PO QID PRN PRN Reason: pain/fever Stop: 02/08/25 04:44 Last Admin: 01/10/25 09:14 Dose: 650 mg Carvedilol (Carvedilol 3.125 Mg Tab) 3.125 mg PO BID ALBERTO Stop: 02/08/25 20:59 Last Admin: 01/10/25 10:40 Dose: 3.125 mg Cyanocobalamin (Cyanocobalamin (B-12) 500 Mcg Tablet) 1,000 mcg PO DAILY ALBERTO Stop: 02/08/25 08:59 Last Admin: 01/10/25 08:47 Dose: 1,000 mcg Dextrose (Dextrose 50% 50 Ml Syringe) 25 - 50 ml IV UD PRN; Protocol PRN Reason: Hypoglycemia Protocol Stop: 02/08/25 05:18 Escitalopram Oxalate (Escitalopram Oxalate 10 Mg Tab) 10 mg PO QAM ALBERTO Stop: 02/08/25 08:59 Last Admin: 01/10/25 08:47 Dose: 10 mg Glucagon (Glucagon For Inj 1 Mg Vial) 1 mg SQ UD PRN; Protocol PRN Reason: Hypoglycemia Protocol Stop: 02/08/25 05:18 Glucose (Glucose 40% Gel 15 Gm Tube) 15 - 30 gm PO UD PRN; Protocol PRN Reason: Hypoglycemia Protocol Stop: 02/08/25 05:18 Glucose (Glucose 10 Tab/Tube) 4 - 8 tab PO UD PRN; Protocol PRN Reason: Hypoglycemia Protocol Stop: 02/08/25 05:18 Heparin Sodium (Porcine) (Heparin Sod 5,000 Unit/0.5 Ml Vial) 5,000 units SQ Q8H ALBERTO Stop: 02/08/25 05:59 Last Admin: 01/10/25 06:17 Dose: 5,000 units Hydroxyzine HCl (Hydroxyzine Hcl 25 Mg Tab) 25 mg PO TID PRN PRN Reason: Anxiety Stop: 02/08/25 04:43 Last Admin: 01/10/25 08:47 Dose: 25 mg Promethazine HCl (Phenergan) 6.25 mg in 50.25 mls @ 201 mls/hr IV Q6H PRN PRN Reason: Nausea And Vomiting Stop: 02/08/25 04:44 Last Infusion: 01/10/25 09:50 Dose: Infused Insulin Aspart (Insulin Aspart Per Unit Charge) 0 units SC ACHS ALBERTO Stop: 02/08/25 05:18 Last Admin: 01/10/25 12:25 Dose: 6 units Insulin Glargine (Lantus Per Unit Charge) 5 units SQ HS ALBERTO Stop: 02/08/25 20:59 Last Admin: 01/09/25 22:13 Dose: 5 units Miscellaneous (Carbohydrates For Hypoglycemia ) 15 - 30 gm PO UD PRN PRN Reason: Hypoglycemia Protocol Stop: 02/08/25 05:18 Simvastatin (Simvastatin 20 Mg Tab) 20 mg PO QPM ALBERTO Stop: 02/08/25 20:59 Last Admin: 01/09/25 22:15 Dose: 20 mg Tramadol HCl (Tramadol Hcl 50 Mg Tablet) 50 mg PO Q8 PRN PRN Reason: Moderate Pain (Scale Score 5-6) Stop: 02/08/25 04:43 Vitamin D (Cholecalciferol 25 Mcg (1000 Units) Tab) 25 mcg PO DAILY ALBERTO Stop: 02/08/25 08:59 Last Admin: 01/10/25 08:48 Dose: 25 mcg
[2025-01-10] MEDS: metOLazone 5 MG TABLET PO ONE (13:17)
[2025-01-10] MEDS: GABAPENTIN 300 MG CAP PO SCH (13:17)
[2025-01-10] MEDS: ONDANSETRON INJ 2 MG/ML 2 ML VIAL IV STA (13:18)
[2025-01-10] MEDS: FUROSEMIDE 40 MG/4 ML VIAL IV SCH (13:21)
--- NOTE | 2025-01-10 13:41 | Pulmonology Progress Note ---
Date of Service January 10, 2025 Assessment & Plan (1) Acute hypercapnic respiratory failure: Plan: Patient with underlying OHS and now acute on chronic hypercapnic respiratory failure. She has a history of CPAP noncompliance. She notes that she has a CPAP at home, but rarely uses it. VBG this afternoon improved to 7.31 and a pCO2 of 64. Continue BiPAP at all times and sleeping. Patient does have an extensive smoking history. (2) Acute on chronic heart failure with preserved ejection fraction: Plan: Defer diuretics to cardiology. (3) SOB (shortness of breath): Plan: Secondary to underlying pulmonary hypertension and diastolic heart failure. Unclear whether the patient has underlying COPD, but she does have an extensive smoking history. No signs of bronchospasm at present. Will hold on systemic corticosteroids. (4) Pulmonary hypertension: Plan: Likely WHO group 2 and 3. Doubtful of WHO Group 1 pulmonary pretension. (5) Chronic hypoxic respiratory failure, on home oxygen therapy: Plan: Patient on home baseline needs. (6) Abnormal CT scan, chest: Plan: Radiology noted a mild left basal pleural thickening and mild dependent reticular and ill-defined groundglass opacities in the basal segments of the left lower lobe. I suspect these are likely related to atelectasis and small chronic effusion. Recommend a follow-up CT chest in about 3 months. Plan Pulmonary to sign off at this time. Please call questions. Thank you for consult. Admission and Anticipated Discharge Date Admission Date: January 09, 2025 Subjective Patient seen examined. She is much more alert and awake today. She denies any significant dyspnea at rest, but does endorse dyspnea with exertion. No chest pain. No fevers, chills or night sweats. Numerous psychosocial stressors at home. Review of Systems Review of Systems: All systems reviewed & are unremarkable except as noted in HPI & below Physical Exam Constitutional: WD/WN, vitals as above + morbidly obese Neck: + thick neck Respiratory: Auscultation: lungs clear to auscultation bilaterally and + diminished lung sounds Cardiovascular: Rate/Rhythm: regular rate and regular rhythm Heart Sounds: no murmur (No audible murmur, distant heart sounds) Vessels: + JVD Extremities: + edema Gastrointestinal (Abdomen): normal bowel sounds, soft, nontender, no he patosplenomegaly Neurologic: PERRL, EOMI, accommodation nl, no face palsy, no dysarthria Results & Data Results & Data Vital Signs (Past 12 Hours) Vital Signs Temp Pulse Pulse Resp BP Pulse Ox O2 Del Method 01/10/25 13:15 75 112/60 01/10/25 11:30 36.6 C 66 16 115/74 99 BiPAP 01/10/25 10:56 69 18 96 01/10/25 10:35 70 110/90 01/10/25 08:00 Nasal Cannula 01/10/25 07:35 36.7 C 60 18 103/70 95 BiPAP 01/10/25 07:32 65 18 95 01/10/25 03:08 36.6 C 51 L 20 96/63 L 96 BiPAP 01/10/25 02:45 21 96 O2 Flow Rate FiO2 01/10/25 13:15 01/10/25 11:30 01/10/25 10:56 01/10/25 10:35 01/10/25 08:00 4 01/10/25 07:35 01/10/25 07:32 01/10/25 03:08 01/10/25 02:45 40 PG Care Time/CCT Total # of Minutes Spent Total Time Spent with Patient: Total time spent is greater than 50% in coordination of care (as documented) at patient's floor/unit and/or counseling patient: Coding Level of Care Code 87182 SUB INP/OBS CARE 2/35MIN Diagnoses Acute hypercapnic respiratory failure J96.02 Acute on chronic heart failure with preserved ejection fraction I50.33 SOB (shortness of breath) R06.02 Pulmonary hypertension I27.20 Chronic hypoxic respiratory failure, on home oxygen therapy J96.11; Z99.[address] scan, chest R93.89
--- NOTE | 2025-01-10 17:17 | Hospitalist Progress Note ---
Date of Service January 10, 2025 Assessment & Plan (1) Acute and chronic respiratory failure with hypercapnia: Plan: Acute on chronic hypoxemic, hypercapnic respiratory failure Secondary to HFpEF secondary to missed home medications, uncontrolled BP Underlying pulmonary hypertension hx chronic respiratory failure secondary to COPD/RLD on home O2 OHS on CPAP 01/10 remains on 2 L NC continue Lasix 60mg IV BID VBG improving, continue Bipap appreciate Cardiology and Pulmonology service recommendations Hypertensive Urgency -Carvedilol 3.125 mg BID resumed -Amlodipine 2.5 mg daily also added--> BP on the lower side, discontinued R lower leg wounds no signs of infection continue daily wound care machine finisher consulted monitor closely Abnormal CT scan, chest: per community reinvestment act officer: Radiology noted a mild left basal pleural thickening and mild dependent reticular and ill-defined groundglass opacities in the basal segments of the left lower lobe. I suspect these are likely related to atelectasis and small chronic effusion. Recommend a follow-up CT chest in about 3 months. Troponin elevation secondary to above hyperlipidemia, on statin Rx DM2 insulin requiring, suboptimal control as of recent hemoglobin A1c of 8.25 September 2024 CRI, creatinine at baseline anxiety/mood disorder, at baseline past tobacco abuse DVT prophylaxis. Heparin subcu Full code Admission and Anticipated Discharge Date Admission Date: January 09, 2025 Results & Data Results & Data Vital Signs (Past 12 Hours) Vital Signs Temp Pulse Pulse Resp BP Pulse Ox O2 Del Method 01/10/25 16:56 36.6 C 87 18 125/68 95 BiPAP 01/10/25 16:33 67 01/10/25 15:30 60 01/10/25 13:15 75 112/60 01/10/25 11:30 36.6 C 66 16 115/74 99 BiPAP 01/10/25 10:56 69 18 96 01/10/25 10:35 70 110/90 01/10/25 08:00 Nasal Cannula 01/10/25 07:35 36.7 C 60 18 103/70 95 BiPAP 01/10/25 07:32 65 18 95 O2 Flow Rate 01/10/25 16:56 01/10/25 16:33 01/10/25 15:30 01/10/25 13:15 01/10/25 11:30 01/10/25 10:56 01/10/25 10:35 01/10/25 08:00 4 01/10/25 07:35 01/10/25 07:32
[2025-01-11 08:04] LABS: BUN Creatinine Ratio 29.1 (10-20); Creatinine Clr Calc Pharmacy 38.6 ml/min; Magnesium 1.9 mg/dl (1.7-2.4)
--- NOTE | 2025-01-11 12:30 | Cardiology Progress Note ---
<Statement entered by Claudia Crews, - 01/11/25 14:43> I have reviewed the advanced practitioner's documentation and agree with the plan of care. I accept the responsibility for the associated risk. pt seen in cardiology f/u due to acute on chronic heart failure with preserved EF-NYHA class III due to obesity hypoventalation syndrome she was given metolazone yesterday and she is still complaining today to me that she is not urinating much and her abd is still bloated. will give her 10mg metolazone today as well as increase lasix to 80mg IV BID; I am sure this will drive her into an CHIQUIS tomorrow but if she does not urinate enough with this aggressive regiment tomorrow and kidney function has bumped then she probably at that juncture is intra-vascular depleted and we can hold diuretics. we will continue to follow with you Date of Service January 11, 2025 Assessment & Plan (1) Acute and chronic respiratory failure with hypercapnia: (2) Pickwickian syndrome: (3) Acute on chronic heart failure with preserved ejection fraction: (4) Hypertensive urgency: Plan Patient admitted with multifactorial SOB/hypoxia, hypertensive urgency secondary to non compliance with her outpatient diuretics and antihypertensive therapy. History of morbid obesity, chronic respiratory failure/pickwickian, PAOLA with CPAP, HFpEF with several admissions over the last 6 months to [facility], treated with IV lasix and BIPAP therapy. Acute HFpEF - Weight has trended down, but appears unchanged from yesterday - Increase furosemide 80 mg twice daily and will give additional metolazone 10 mg today - Once euvolemic can transition back to torsemide home dose was 60 mg daily which she reported was doing well until she ran out of medication -Monitor I+O's -Fluid restriction of 1500 ml -Monitor renal function/electrolytes -Daily weight with standing scale -Patient follows with [facility] [place] - Per review of records she has not been on guideline directed medical therapies with CHRISTOPHER/ARB, spironolactone due to baseline renal insufficiency? Hypertensive urgency -Due to non compliance with oral medications -Carvedilol 3.125 mg BID resumed -Continue IV diuretics -Amlodipine 2.5 mg daily also added. -Could consider low dose CHRISTOPHER/ARB vs Entresto as an outpatient based on renal funciton. -BP improved PAOLA -continue CPAP -compliance encouraged Case discussed with Dr. Crews. Please see attestation for additional recommendations. AZEEM Bledsoe Department of Cardiology, [facility] This chart was completed in part utilizing Speech Voice Recognition Software. Grammatical errors, random word insertions, pronoun errors, and incomplete sentences are an occasional consequence of this system due to software limitations, ambient noise, and hardware issues. Any formal questions or concern s about the content, text, or information contained within the body of this dictation should be directly addressed to the provider for clarification. Admission and Anticipated Discharge Date Admission Date: January 09, 2025 Subjective 69-year-old female seen in cardiology follow-up in regard to acute on chronic CHF exacerbation secondary to medication noncompliance. Symptomatically feeling better respiratory status is improving but still feels volume overloaded. Review of Systems Constitutional: + weight gain; no fever and no chills Respiratory: + cough and + dyspnea on exertion Cardiovascular: + edema; no chest pain Gastrointestinal: no abdominal pain and no vomiting Psychiatric: + anxiety Physical Exam Constitutional: WD/WN, vitals as above well developed and + overweight Eyes: PERRL, conjunctivae normal, anicteric sclerae Neck: trachea midline, no thyromegaly Respiratory: normal respiratory effort Auscultation: + diminished lung sounds Cardiovascular: Rate/Rhythm: regular rate and regular rhythm Vessels: no JVD Extremities: + edema Gastrointestinal (Abdomen): normal bowel sounds, soft, nontender, no hepatosplenomegaly Skin: no rashes, warm and dry Psychiatric: A+Ox3, euthymic affect Results & Data Vital Signs (Past 12 Hours) Vital Signs Temp Pulse Pulse Resp BP Pulse Ox O2 Del Method 01/11/25 11:30 36.6 C 80 18 118/59 L 99 BiPAP 01/11/25 10:13 54 L 01/11/25 08:00 Nasal Cannula 01/11/25 07:30 36.5 C 78 18 125/60 98 BiPAP 01/11/25 03:14 36.6 C 61 20 109/64 98 BiPAP 01/11/25 02:33 57 L 23 97 O2 Flow Rate FiO2 01/11/25 11:30 01/11/25 10:13 01/11/25 08:00 4 01/11/25 07:30 01/11/25 03:14 01/11/25 02:33 40
--- NOTE | 2025-01-11 14:05 | Hospitalist Progress Note ---
Date of Service January 11, 2025 Assessment & Plan (1) Acute and chronic respiratory failure with hypercapnia: Plan: Acute on chronic hypoxemic, hypercapnic respiratory failure Secondary to HFpEF secondary to missed home medications, uncontrolled BP Underlying pulmonary hypertension hx chronic respiratory failure secondary to COPD/RLD on home O2 OHS on CPAP 01/10 remains on 2 L NC continue Lasix 60mg IV BID VBG improving, continue Bipap appreciate Cardiology and Pulmonology service recommendations 01/11 Continue Lasix IV twice daily Continue BiPAP Repeat VBG tomorrow Hypertensive Urgency -Carvedilol 3.125 mg BID resumed -Amlodipine 2.5 mg daily also added--> BP on the lower side, discontinued R lower leg wounds no signs of infection continue daily wound care application infrastructure engineer consulted monitor closely Abnormal CT scan, chest: per circular gang saw operator: Radiology noted a mild left basal pleural thickening and mild dependent reticular and ill-defined groundglass opacities in the basal segments of the left lower lobe. I suspect these are likely related to atelectasis and small chronic effusion. Recommend a follow-up CT chest in about 3 months. Troponin elevation secondary to above hyperlipidemia, on statin Rx DM2 insulin requiring, suboptimal control as of recent hemoglobin A1c of 8.25 September 2024 CRI, creatinine at baseline anxiety/mood disorder, at baseline past tobacco abuse DVT prophylaxis. Heparin subcu Full code Admission and Anticipated Discharge Date Admission Date: January 09, 2025 Subjective follow-up for CHF exacerbation, etc. Seen resting in bed, comfortable, not in distress sleeping States she feels okay overall No shortness of breath, chest pain, cough No leg pain No other new symptom Review of Systems Review of Systems: all noted and negative except for above Physical Exam Physical Exam: General- oriented x 3, not in distress, speaks in sentences with no effort or accessory muscle use Eyes- anicteric Neck- no JVD Lungs- mild rales bilateral bases, no wheezing Heart- normal rate, regular rhythm; no murmurs Abdomen- normal bowel sounds, nondistended, soft, nontender Extremities- grade 1 lower extremity edema with mild erythema, no warmth 2 small open wounds right lower leg Neuro- alert, oriented x 3; no gross focal neurologic deficits Skin- warm & dry Results & Data Results & Data Vital Signs (Past 12 Hours) Vital Signs Temp Pulse Pulse Resp BP Pulse Ox O2 Del Method 01/11/25 11:30 36.6 C 80 18 118/59 L 99 BiPAP 01/11/25 10:13 54 L 01/11/25 08:00 Nasal Cannula 01/11/25 07:30 36.5 C 78 18 125/60 98 BiPAP 01/11/25 03:14 36.6 C 61 20 109/64 98 BiPAP 01/11/25 02:33 57 L 23 97 O2 Flow Rate FiO2 01/11/25 11:30 01/11/25 10:13 01/11/25 08:00 4 01/11/25 07:30 01/11/25 03:14 01/11/25 02:33 40 all noted and reviewed including below
[2025-01-11] MEDS: metOLazone 5 MG TABLET PO ONE (14:56)
[2025-01-11] MEDS: FUROSEMIDE 40 MG/4 ML VIAL IV SCH (21:16)
--- NOTE | 2025-01-11 23:25 | Communication Note ---
Date of Service: January 11, 2025 Made aware by RN of hypotension, SBP 80s. Patient asymptomatic except for being tired and fatigued. Serum crea 2.18 from 1.79 in AM AP Hypotension Progressive ARF on CKD Possible overdiuresis IV albumin 1 dose Hold diuretic Rx for now Check UA
[2025-01-11] MEDS: ALBUMIN 25% 12.5 GM/50 ML VIAL IV ONE (23:57)
[2025-01-12 00:56] LABS: BUN Creatinine Ratio 27.5 (10-20); Calcium 7.9 mg/dl (8.6-10.3); Creatinine Clr Calc Pharmacy 31.7 ml/min; Potassium 4.9 mmol/L (3.5-5.1)
[2025-01-12] MEDS: ALBUMIN 25% 12.5 GM/50 ML VIAL IV ONE (01:13)
[2025-01-12 07:53] LABS: Hematocrit (blood only) 39.1 % (37.0-47.0); Hemoglobin 11.3 g/dl (12.0-16.0); Mean Corpuscular Hemoglobin 25.6 pg (25.0-34.0); Mean Corpuscular Hgb Conc 28.9 g/dL (32.0-36.0); Mean Corpuscular Volume 88.5 fL (80.0-100.0); Mean Platelet Volume 9.7 fL (9.4-12.4); Platelet Count 191 K/uL (130-400); RDW Coefficient of Variation 16.4 % (11.5-14.5); RDW Standard Deviation 53.6 fL (36.4-46.3); Red Blood Count 4.42 M/uL (4.20-5.40); White Blood Count 6.34 K/ul (4.8-10.8)
[2025-01-12 08:13] LABS: BUN Creatinine Ratio 26.9 (10-20); Creatinine Clr Calc Pharmacy 31.6 ml/min; Potassium 5.1 mmol/L (3.5-5.1)
[2025-01-12] MEDS: GABAPENTIN 100 MG CAP PO SCH (08:59)
[2025-01-12 10:06] LABS: Base Excess VBG -0.1 mEq/L; HCO3 VBG 29 mmol/L; Oxygen Saturation VBG 90.7 %; PCO2 VBG 70 mmHg (38-50); PO2 VBG 60 mmHg; pH VBG 7.23 (7.36-7.41)
--- NOTE | 2025-01-12 11:15 | Cardiology Progress Note ---
Date of Service January 12, 2025 Assessment & Plan (1) Acute and chronic respiratory failure with hypercapnia: (2) Pickwickian syndrome: (3) Acute on chronic heart failure with preserved ejection fraction: (4) Hypertensive urgency: Plan 01/11/25 Patient admitted with multifactorial SOB/hypoxia, hypertensive urgency secondary to non compliance with her outpatient diuretics and antihypertensive therapy. History of morbid obesity, chronic respiratory failure/pickwickian, PAOLA with CPAP, HFpEF with several admissions over the last 6 months to [facility], treated with IV lasix and BIPAP therapy. Acute HFpEF - Weight has trended down, but appears unchanged from yesterday - Increase furosemide 80 mg twice daily and will give additional metolazone 10 mg today - Once euvolemic can transition back to torsemide home dose was 60 mg daily which she reported was doing well until she ran out of medication -Monitor I+O's -Fluid restriction of 1500 ml -Monitor renal function/electrolytes -Daily weight with standing scale -Patient follows with [facility] [place] - Per review of records she has not been on guideline directed medical therapies with CHRISTOPHER/ARB, spironolactone due to baseline renal insufficiency? Hypertensive urgency -Due to non compliance with oral medications -Carvedilol 3.125 mg BID resumed -Continue IV diuretics -Amlodipine 2.5 mg daily also added. -Could consider low dose CHRISTOPHER/ARB vs Entresto as an outpatient based on renal function. -BP improved PAOLA -continue CPAP -compliance encouraged 01/12/25: Patient treated with IV diuretics and 10 mg of metolazone yesterday Outputs not measured? Standing Weight not completed this morning. Recommend weight on standing scale Monitor I+O's She was mildly hypotensive overnight. Amlodipine stopped (this was added on admission due to HTN urgency) Hold additional diuretics this morning. Creatinine stable from yesterday at 2.1. (Baseline appears to be 1.5-1.8) Transition from carvedilol 3.125 mg BID to metoprolol succinate 25 mg daily due to hypotension She is not on other GDMT possibly due to renal insufficiency? She follows with [facility]. Will need f/u on discharge. She was doing well on torsemide 60 mg daily prior to running out of medication. Continue statin Case discussed with Dr. Dr. Hightower Please see attestation for additional recommendations. Josy Wetzel PA-C Department of Cardiology, [facility] This chart was completed in part utilizing Speech Voice Recognition Software. Grammatical errors, random word insertions, pronoun errors, and incomplete sentences are an occasional consequence of this system due to software limitations, ambient noise, and hardware issues. Any formal questions or concerns about the content, text, or information contained within the body of this dictation should be directly addressed to the provider for clarification. Admission and Anticipated Discharge Date Admission Date: January 09, 2025 Supervising Physician Co-Signing Physician Notes Attending attestation: Case reviewed with the advanced practitioner. I have personally performed a history and physical examination on the patient. I have reviewed the advanced practitioner's documentation on the date of service referenced in note, and I agree with, and take responsibility for the plan of care. Patient at time of examination sleeping on BiPAP and difficult to arouse Current records as well as outpatient records reflect chronic restrictive lung disease secondary to pickwickian phenomena, obstructive sleep apnea and right heart failure. Patient slow to respond to diuretics. Recommendations and plans as above. Prognosis limited If lethargy persists consider ABG Subjective Patient sleeping soundly. Would not awaken. Review of systems not performed. Per nursing - patient has been mildly hypotensive overnight. morning meds held. Review of Systems Review of Systems: Other (Patient sleeping) Physical Exam Constitutional: WD/WN, vitals as above + morbidly obese; no acute distress Neck: + thick neck Respiratory: Auscultation: + diminished lung sounds and + wheezes Cardiovascular: Rate/Rhythm: regular rate and regular rhythm Heart Sounds: no murmur (No audible murmur, distant heart sounds) Vessels: + JVD Extremities: + edema (1+ LE edema with chronic stasis changes) Gastrointestinal (Abdomen): normal bowel sounds, soft, nontender, no hepatosplenomegaly Neurologic: PERRL, EOMI, accommodation nl, no face palsy, no dysarthria Results & Data Vital Signs (Past 12 Hours) Vital Signs Temp Pulse Pulse Resp BP BP Pulse Ox 01/12/25 10:58 36.6 C 64 22 129/72 94 01/12/25 10:36 63 24 97 01/12/25 10:30 61 20 113/65 95 01/12/25 09:05 01/12/25 07:38 36.4 C L 62 21 105/60 91 01/12/25 02:50 61 22 95 01/12/25 02:31 36.3 C L 67 20 105/57 L 93 01/12/25 00:56 37.0 C 60 18 90/59 L 97 01/11/25 23:50 63 24 98 01/11/25 23:39 37.0 C 67 18 85/50 L 91 O2 Del Method O2 Flow Rate FiO2 01/12/25 10:58 BiPAP 01/12/25 10:36 30 01/12/25 10:30 BiPAP 01/12/25 09:05 BiPAP 01/12/25 07:38 BiPAP 01/12/25 02:50 40 01/12/25 02:31 BiPAP 01/12/25 00:56 BiPAP 01/11/25 23:50 40 01/11/25 23:39 Nasal Cannula 4 Laboratory Results CBC 01/12/25 Range/Units 07:04 WBC 6.34 (4.8-10.8) K/ul RBC 4.42 (4.20-5.40) M/uL Hgb 11.3 L (12.0-16.0) g/dl Hct 39.1 (37.0-47.0) % Plt Count 191 (130-400) K/uL Comprehensive Metabolic Panel 01/11/25 01/12/25 Range/Units 23:59 07:04 Sodium 135 L 135 L (136-145) mmol/L Potassium 4.9 5.1 (3.5-5.1) mmol/L Chloride 99 100 (98-107) mmol/L Carbon Dioxide 34 H 33 H (21-32) mmol/L BUN 60 H 59 H (6-23) mg/dl Creatinine 2.18 H D 2.19 H (0.6-1.2) mg/dl Glucose 213 H 157 H (70-99(Fasting)) mg/dl Calcium 7.9 L 8.0 L (8.6-10.3) mg/dl Intake and Output 01/11/25 01/12/25 01/12/25 22:59 06:59 14:59 Intake Total 240 / 340 100 / 340 Balance 240 / 340 100 / 340 Intake: IV 100 / 100 Albumin 25% 12.5 gm In 50 ml @ 100 / 100 50 mls/hr IV ONE ONE Rx#: [id number] Oral 240 / 240 Other: # Unmeasured Voids 1 Diagnostic Findings Telemetry reviewed NSR in the 60's Medications Administered Current Inpatient Medications Acetaminophen (Acetaminophen 325 Mg Tab) 650 mg PO QID PRN PRN Reason: pain/fever Stop: 02/08/25 04:44 Last Admin: 01/11/25 21:17 Dose: 650 mg Cyanocobalamin (Cyanocobalamin (B-12) 500 Mcg Tablet) 1,000 mcg PO DAILY ALBERTO Stop: 02/08/25 08:59 Last Admin: 01/12/25 10:13 Dose: Not Given Dextrose (Dextrose 50% 50 Ml Syringe) 25 - 50 ml IV UD PRN; Protocol PRN Reason: Hypoglycemia Protocol Stop: 02/08/25 05:18 Escitalopram Oxalate (Escitalopram Oxalate 10 Mg Tab) 10 mg PO QAM ALBERTO Stop: 02/08/25 08:59 Last Admin: 01/12/25 10:13 Dose: Not Given Furosemide (Furosemide 40 Mg/4 Ml Vial) 80 mg IV BID ALBERTO Stop: 02/10/25 20:59 Last Admin: 01/11/25 21:16 Dose: 80 mg Gabapentin (Gabapentin 100 Mg Cap) 200 mg PO TID ALBERTO Stop: 02/11/25 08:59 Last Admin: 01/12/25 10:13 Dose: Not Given Glucagon (Glucagon For Inj 1 Mg Vial) 1 mg SQ UD PRN; Protocol PRN Reason: Hypoglycemia Protocol Stop: 02/08/25 05:18 Glucose (Glucose 40% Gel 15 Gm Tube) 15 - 30 gm PO UD PRN; Protocol PRN Reason: Hypoglycemia Protocol Stop: 02/08/25 05:18 Glucose (Glucose 10 Tab/Tube) 4 - 8 tab PO UD PRN; Protocol PRN Reason: Hypoglycemia Protocol Stop: 02/08/25 05:18 Heparin Sodium (Porcine) (Heparin Sod 5,000 Unit/0.5 Ml Vial) 5,000 units SQ Q8H ALBERTO Stop: 02/08/25 05:59 Last Admin: 01/12/25 05:44 Dose: 5,000 units Hydroxyzine HCl (Hydroxyzine Hcl 25 Mg Tab) 25 mg PO TID PRN PRN Reason: Anxiety Stop: 02/08/25 04:43 Last Admin: 01/11/25 21:18 Dose: 25 mg Promethazine HCl (Phenergan) 6.25 mg in 50.25 mls @ 201 mls/hr IV Q6H PRN PRN Reason: Nausea And Vomiting Stop: 02/08/25 04:44 Last Infusion: 01/10/25 09:50 Dose: Infused Insulin Aspart (Insulin Aspart Per Unit Charge) 0 units SC ACHS [facility] Stop: 02/08/25 05:18 Last Admin: 01/12/25 08:59 Dose: 2 units Insulin Glargine (Lantus Per Unit Charge) 5 units SQ HS [facility] Stop: 02/08/25 20:59 Last Admin: 01/11/25 21:17 Dose: 5 units Metoprolol Succinate (Metoprolol Succ 25mg Ext Rel Tab) 25 mg PO QAM [facility] Stop: 02/11/25 11:14 Miscellaneous (Carbohydrates For Hypoglycemia ) 15 - 30 gm PO UD PRN PRN Reason: Hypoglycemia Protocol Stop: 02/08/25 05:18 Simvastatin (Simvastatin 20 Mg Tab) 20 mg PO QPM [facility] Stop: 02/08/25 20:59 Last Admin: 01/11/25 21:19 Dose: 20 mg Tramadol HCl (Tramadol Hcl 50 Mg Tablet) 50 mg PO Q8 PRN PRN Reason: Moderate Pain (Scale Score 5-6) Stop: 02/08/25 04:43 Vitamin D (Cholecalciferol 25 Mcg (1000 Units) Tab) 25 mcg PO DAILY [facility] Stop: 02/08/25 08:59 Last Admin: 01/12/25 10:13 Dose: Not Given
--- NOTE | 2025-01-12 11:17 | Communication Note ---
Date of Service: January 12, 2025 Was asked by primary team via nursing staff to assess the patient for increasing lethargy. Apparently, the patient was found to be somnolent this morning. VBG was obtained which demonstrated going respiratory acidosis with a pH of 7.23 and CO2 of 70. She was placed on BiPAP and her settings were adjusted by respiratory therapy. Upon my evaluation at bedside at 11 AM, the patient is on BiPAP. She is awake, alert, oriented, and conversant. She reports being hungry. She complains of pain in her feet, but otherwise feels fine. Respiratory therapy was at bedside. She is currently on BiPAP at 20/5 with a backup rate of 24. Backup rate was decreased to 20 as her tidal volumes were sufficient at this time. Would recommend follow-up VBG or ABG in 2 hours upon initiating BiPAP therapy. Otherwise, would recommend continue to use BiPAP with any sleep including naps. Additionally, she would be sensitive to positional changes while sleeping. Consider head of bed elevated with sleep.
[2025-01-12 11:37] LABS: Appearance Urine Cloudy (Clear); Bacteria Urine Automated 4+ (None Seen); Bilirubin Urine Negative (Negative); Blood Urine Negative (Negative); Color Urine Yellow; Epithelial Cell Urine Auto >20 /hpf (0-2); Glucose Urine UA Negative (Negative); Ketones Urine Negative (Negative); Leukocyte Esterase Urine 2+ (Negative); Nitrite Urine Negative (Negative); Protein Urine Trace (Negative); RBC Urine Automated 0-2 /hpf (0-2); Specific Gravity Urine 1.018 (1.000-1.030); Urobilinogen Urine Negative (Negative); WBC Urine Automated >50 /hpf (0-5)
--- NOTE | 2025-01-12 12:15 | Communication Note ---
Date of Service: January 12, 2025 tried to call patient's brother for update, several times no answer left voicemail to call back emergently Ivan Perez MD
[2025-01-12 12:38] LABS: Cast Urine Automated 0-2 /lpf (0-2)
[2025-01-12] MEDS ORDERED: Standard Conc; 4 MG in 250 mL for HYPOTENSION IV SCH (12:45)
[2025-01-12] MEDS ORDERED: STAT IV Infusion **Titration per Protocol STA ×2 (13:27→13:31)
[2025-01-12] MEDS ORDERED: PROPOFOL BOLUS FROM BAG IV PRN (13:31)
[2025-01-12] MEDS ORDERED: fentaNYL citrate PF 100 MCG/2 ML VIAL IV PRN (13:31)
[2025-01-12 13:35] LABS: iSTAT Art Bld Gas pCO2 Correct 80 mmHg (35-46); iSTAT Arterial Blood Gas HCO3 29 meg/L (19-24); iSTAT Arterial Blood Gas pCO2 80 mmHg (35-46); iSTAT Arterial Blood Gas pH 7.17 (7.35-7.45); iSTAT Arterial Blood Gas pO2 154 mmHg (80-95); iSTAT Arterial Blood Gas pO2 C 155; iSTAT Carbon Dioxide 31 mmol/L (24-31); iSTAT FiO2 100 %; iSTAT Hematocrit 40 % (37-47); iSTAT Hemoglobin 13.6 g/dl (12.0-16.0); iSTAT Potassium 4.8 mmol/L (3.3-5.0); iSTAT Sample Type Arterial; iSTAT Site Art Line; iSTAT Sodium 137 mmol/L (135-144); iSTAT SpO2 100
--- NOTE | 2025-01-12 13:35 | Procedure Note ---
Procedure Note Date of Service January 12, 2025 INTUBATION PROCEDURE NOTE: Provider: Sacha Samuel MD Procedure was emergent and occurred during CPR. No family available for consent. Chart previously noted full code. Arrived in the room to find the patient undergoing CPR actively. There was evidence of vomitus in the airway and on the bed. In between rounds of CPR during pulse checks performed indirect laryngoscopy with a video laryngoscope. Cords were visualized with profuse vomitus above the glottis. This was suctioned free. Was unable to maintain a view of the airway and passed a 7.5 endotracheal tube through the cords. Balloon was inflated. Bag valve ventilation was then conducted through the endotracheal tube. Breath sounds were bilateral. End-tidal CO2 was not detected due to PEA rhythm. See CPR note for additional details [facility] [place] Codes (Charges) Resuscitation Resuscitation: 94510 Endotracheal Intubation, emergency Coding CPT Codes Resuscitation - Resuscitation: 38251 Endotracheal Intubation, emergency ([id number]) Additional Codes Date of Service (PG.SURGERY)
--- NOTE | 2025-01-12 13:35 | Procedure Note ---
Procedure Note Date of Service January 12, 2025 CENTRAL LINE PROCEDURE NOTE: Procedure: Central Line Placement Provider: Sacha Samuel MD Indication: Central Drug Administration, Poor Venous Access, Multiple Lab Draws Necessary, etc. Anesthesia: 5 cc 1% lidocaine local Site: Left subclavian Procedure was emergent. Patient unable to provide consent due to being intubated. No family available. Patient was placed in a recumbent position. Small towel roll was placed. Tween the shoulder blades to allow for expansion of the infraclavicular space. The skin was prepped and draped in normal sterile fashion. Full barrier precautions were initiated. Landmarks were identified. 5 cc of 1% lidocaine was instilled locally inferior to the clavicle. Once local anesthesia was completed, an 18- gauge needle was placed on a syringe and advanced until the clavicle was palpated and then advanced under the clavicle until it entered the subclavian vein. Syringe was detached leaving the needle in place with free dark blood flow. A wire was passed through the needle and the needle removed leaving the wire in place. A skin becka was made with scalpel. Dilators were advanced over the wire without difficulty. A previously prepared triple-lumen catheter was then passed over the wire into the vein and the wire removed. All ports flushed and bandar easily. The catheter was sutured in place at the hub and a sterile dressing with a Biopatch applied. Estimated blood loss: 5 mL MNP Procedure Codes (Charges) Tubes, Drains, and Vasc Access Procedure 1: Tubes, Drains, and Vasc Access: [id number] Place catheter in vein superior or inferior vena cava Coding CPT Codes Tubes, Drains, and Vasc Access - Tubes, Drains, and Vasc Access: [id number] Place catheter in vein superior or inferior vena cava ([id number]) Additional Codes Date of Service (PG.SURGERY)
[2025-01-12] MEDS: ALBUTEROL 0.083% NEBU SOLN 3 ML VIAL ONE (13:38)
[2025-01-12] MEDS: ALBUT/IPRATROP 3MG/0.5MG NEB 3 ML VIAL ONE (13:39)
--- NOTE | 2025-01-12 13:40 | Procedure Note ---
Procedure Note Date of Service January 12, 2025 ARTERIAL LINE PROCEDURE NOTE: Procedure: Arterial Line Placement Provider: Sacha Samuel MD Indication: Monitoring on Pressors Procedure was emergent. Patient intubated and unable to provide consent. No family immediately available. The patient's left wrist was prepped and draped in normal sterile fashion. Limited ultrasound was performed which revealed a small compressible pulsatile radial artery. Sterile field was established and the skin extensively washed with chlorhexidine. Under direct ultrasound visualization using an 18-gauge needle, the left radial artery was accessed. A wire was passed in catheter was placed without difficulty. Pulsatile blood flow was returned. The catheter was attached to the pressure transducer and an arterial waveform was confirmed. Biopatch was applied. Blood Loss: Minimal Complications: None [facility] [place] Procedure Codes (Charges) Tubes, Drains, and Vasc Access Procedure 1: Tubes, Drains, and Vasc Access: [id number] Arterial Cath/Cannulation Sampling/Monitoring/Transfusion Procedure 2: Tubes, Drains, and Vasc Access: [id number] Ultrasound Guidance For Vascular Coding CPT Codes Tubes, Drains, and Vasc Access - Tubes, Drains, and Vasc Access: [id number] Arterial Cath/Cannulation Sampling/Monitoring/Transfusion ([id number]) Tubes, Drains, and Vasc Access - Tubes, Drains, and Vasc Access: [id number] Ultrasound Guidance For Vascular ([id number]) Additional Codes Date of Service (PG.SURGERY)
--- NOTE | 2025-01-12 13:44 | Procedure Note ---
Procedure Note Date of Service January 12, 2025 CPR/resuscitation note: Responded to overhead call for CODE BEE. Arrived to find compressions in progress in the patient being ventilated [id number]. Physician at bedside. Reportedly the patient had been with a decreased level of consciousness on BiPAP but perked up enough to have her BiPAP removed and tried to eat lunch at which point she probably aspirated and vomited. I/O had been placed by nursing. She had received epinephrine. Continued ACLS for approximately 20 minutes with multiple pulse checks demonstrating PEA. I was able to successfully intubate the patient during the course of this code. Bedside echo performed with the assistance of cardiology demonstrating an underfilled LV as well as a slightly dilated RV with no pericardial effusion. Epinephrine drip was initiated after bicarb and calcium. Patient was transferred to the ICU at which point in time central line and arterial line were placed as well as bronchoscopy performed. Participated in CPR and ACLS for total of 35 minutes with this patient. [facility] [place] Procedure Codes (Charges) Resuscitation Resuscitation: 47032 Heart/lung resuscitation CPR Coding CPT Codes Resuscitation - Resuscitation: 90436 Heart/lung resuscitation CPR ([id number]) Additional Codes Date of Service (PG.SURGERY)
--- NOTE | 2025-01-12 13:49 | Procedure Note ---
Procedure Note Date of Service January 12, 2025 Procedure: Fiberoptic bronchoscopy Therapeutic aspiration of secretions, initial Provider: Sacha Samuel MD Consent: Emergent. Patient unable to provide verbal or written consent. No family available Indication: Aspiration Procedure: Is in the ICU. She been intubated during the course of CODE BLUE/cardiac arrest. She had significant vomitus present in the airway at the time of intubation. Patient is in the ICU ventilated. She is placed on 100% FiO2. The Bodai adapter was placed in line with the ventilatory circuit. A fiberoptic scope was advanced into the endotracheal tube via the Bodai adapter. There was significant organic material present within the endotracheal tube which was suctioned and lavaged free. Eventually were able to clear the endotracheal tube. It was sounded and found to be about 2 cm above the suki. There was extensive particulate matter throughout the tracheobronchial tree which required extensive saline lavage. Eventually we were able to clear the airways. Airways were diffusely inflamed and irritated but no endobronchial lesions were identified. Impression: 1. Endotracheal tube in good position. 2. Significant gastric material present throughout the tracheobronchial tree consistent with aspiration [facility] [place] Procedure Codes (Charges) Pulmonary/Thoracic Procedure 1: Pulmonary and Thoracic: 93434 Bronchoscopy, clear airways Coding CPT Codes Pulmonary/Thoracic - Pulmonary and Thoracic: 38310 Bronchoscopy, clear airways ([id number]) Additional Codes Date of Service (PG.SURGERY)
[2025-01-12] MEDS: PLASMA-LYTE A 2,000 ML IV ONE (13:51)
[2025-01-12] MEDS: METOPROLOL SUCC 25MG EXT REL TAB PO SCH (13:58)
--- NOTE | 2025-01-12 14:08 | XRay Report ---
XR chest 1V portable CLINICAL HISTORY: intubation COMPARISON STUDY: 01/09/2025 FINDINGS: Endotracheal tube tip is 2 cm above the suki. Left central catheter tip is near the brach iocephalic SVC junction. There is stable cardiomegaly with mild pulmonary vascular congestion. Inspir ation is shallow. There is interval hazy and stranding opacity at the right upper lung. No pleural ef fusion or pneumothorax seen. IMPRESSION: 1. Endotracheal tube tip is 2 cm above the suki. 2. Interval stranding and hazy opacity at the right upper lung, atelectasis or pneumonia. ACT 112: Negative or not required by law. Electronically signed by: Jamal Cid M.D. 01/12/2025 2:06 PM
[2025-01-12] MEDS: propofoL 1,000 MG/100 ML VIAL IV SCH (14:10)
[2025-01-12] MEDS: EPINEPHrine/NSS 4 MG/254 ML BAG IV SCH (14:10)
[2025-01-12] MEDS ORDERED: Nursing to Pharmacy Communication SCH (14:15)
--- NOTE | 2025-01-12 14:23 | Critical Care Consultation ---
Date of Consultation January 12, 2025 Assessment & Plan (1) Cardiac arrest: (2) Aspiration into respiratory tract: (3) Acute on chronic heart failure with preserved ejection fraction: (4) Pickwickian syndrome: (5) Pulmonary hypertension: (6) Chronic hypoxic respiratory failure, on home oxygen therapy: (7) Morbid obesity: Plan Impression: 69-year-old female with multiple medical issues including acute on chronic hypoxemic respiratory failure and hypercarbic respiratory failure with noncompliance with noninvasive positive pressure ventilation at home admitted with shortness of breath and fluid overload. She was diuresed and being treated with BiPAP but suffered an aspiration event 01/12/2025 resulting in cardiac arrest and prolonged PEA code. She is now in the ICU intubated and on an epinephrine infusion. Recommendations: 1. Neurologic: Prolonged ACLS. The patient is at risk for neurological sequelae including anoxic brain injury. She is withdrawing slightly to painful stimulus. Will continue supportive care at this point in time. No indication for imaging acutely. Will hold her SSRI. Continue low-dose gabapentin given potential withdrawal syndrome. Will sedate with propofol if needed to allow for repeat neurological assessment. Depending on clinical course, may require imaging, EEG, and/or neurology input. 2. Cardiovascular: PEA arrest likely secondary to aspiration event and hypoxemia. Bedside echo showed underfilled left ventricle with slightly dilated right ventricle consistent with the patient's history of pulmonary hypertension. Will continue additional volume resuscitation at this point in time and reassess. Wean epinephrine as tolerated. 3. Pulmonary: Massive aspiration event. Chest x-ray shows haziness right greater than left consistent with aspiration. Bronchoscopy was performed with removal of multiple pieces of organic material. May need repeat bronchoscopy in the next 24 hours. No indication for steroids or antibiotics currently unless the patient develops persistent fever, leukocytosis, or progressive airspace opacity. Continue lung protective ventilation although the patient does have evidence of air trapping and auto PEEP currently so we will need to reassess as she is sedated. 4. ID: Holding antibiotics for now. Will reassess. 5. GI: N.p.o. for now. Initiate PPI. 6. Renal: ICU electrolyte replacement protocol. Hold diuretics for now in light of what her echocardiogram looks like. Will give 2 L of IV crystalloid to volume expand given her significant pulmonary hypertension. Will need frequent reassessment. Acid-base status demonstrates chronic hypercarbic respiratory failure with superimposed acute hypercapnia. Will follow blood gases and adjust as necessary. 7. Endocrine: Glycemic control per protocol. 8. Heme-onc: No current issues. DVT prophylaxis will be continued. Patient is critically ill at this point in time with significant possibility of clinical decline and/or . A total of 85 minutes in critical care time exclusive of procedures was spent evaluation management coordination of care for this patient. No family immediately available History of Present Illness Attending Physician: Ivan Perez MD History of Present Illness Asked by hospitalist to assist in evaluation management this patient suffered a hypoxic cardiopulmonary arrest on the floor after an aspiration event. History is obtained from review the electronic medical record. The patient is unable to provide any history due to being intubated. No family immediately available. Patient was seen previously this hospitalization by one of my pulmonary colleagues for COPD/hypercarbic respiratory failure and BiPAP was recommended at that time. She has a history of morbid obesity with obesity hypoventilation syndrome, diastolic heart failure and chronic kidney disease who was in town visiting family. She was admitted to the facility 01/09/2025 with complaints of shortness of breath on exertion and increasing lower extremity. She apparently ran out of her medications and was noncompliant in getting them refilled. She was seen by cardiology and pulmonary. Positive airway pressure at night and as needed during the day and diuretics were recommended. The patient was seen earlier today by the physicians lab assistant and appropriately assessed to remain on BiPAP. However at some point in time nursing staff felt the patient's mental status improved enough to take the BiPAP off and allow her to eat. She subsequently aspirated on a piece of chicken and vomited and deteriorated to PEA cardiac arrest. She was coded on the floor for over 20 minutes. I responded to the code and directed the code for over 20 minutes. Please see my separate progress notes including intubation notes. Once we were able to get a pulse after approximately 25 minutes of downtime, the patient was transferred to the ICU where central lines and arterial lines and bronchoscopy were performed. Please refer to separate notes. The patient is not currently on sedation. She is withdrawing to some painful stimulus to a small degree. No family available. Allergies Allergy/AdvReac Type Severity Reaction Status Date / Time No Known Allergies Allergy Verified 01/09/25 00:24 Home Medications Medication Instructions Recorded Confirmed Type carvedilol 3.125 mg tablet 3.125 mg PO AMPM 01/09/25 01/09/25 History cholecalciferol (vitamin D3) 25 25 mcg PO DAILY 01/09/25 01/09/25 History mcg (1,000 unit) tablet (Vitamin D3) cyanocobalamin (vitamin B-12) 1,000 mcg PO DAILY 01/09/25 01/09/25 History 1,000 mcg tablet escitalopram oxalate 10 mg tablet 10 mg PO QAM 01/09/25 01/09/25 History hydroxyzine HCl 25 mg tablet 25 mg PO TID PRN Anxiety 01/09/25 01/09/25 History insulin glargine 100 unit/mL (3 12 unit subcut HS 01/09/25 01/09/25 History mL) subcutaneous pen (Basaglar KwikPen U-100 Insulin) simvastatin 20 mg tablet 20 mg PO QPM 01/09/25 01/09/25 History torsemide 20 mg tablet 60 mg PO QAM 01/09/25 01/09/25 History tramadol 50 mg tablet 50 mg PO Q8 PRN Moderate Pain 01/09/25 01/09/25 History (Scale Score 5-6) Patient History Social History Smoking Status: Former smoker Tobacco Type: Cigarettes Second Hand Exposure: No; Do You Dip or Chew Tobacco: No; Hx Alcohol Use: Yes Alcohol type: beer, wine and hard liquor Hx Substance Use: No Preferred Language: [place] Communication Ability: Effective Party Plan Sales Unit Advisor Required: No Beliefs That Will Affect Care: None Current Living Situation: Family Feels Safe at Home: Yes Safety Concerns: Feels Safe At This Time Assistive Devices: CPAP, Oxygen - Continuous, Walker and Wheelchair Review of Systems Review of Systems: Unobtainable due to endotracheal tube Physical Exam Constitutional: + morbidly obese and + disheveled Neck: trachea midline, no thyromegaly Respiratory: no labored breathing and no cough Auscultation: + rhonchi; no wheezes Cardiovascular: RRR, no murmur, no edema Gastrointestinal (Abdomen): normal bowel sounds, soft, nontender, no hepatosplenomegaly Musculoskeletal: Extremities: extremities normal to inspection Skin: no rashes, warm and dry Neurologic: No purposeful movement at this time. Pupils small but reactive Lymphatic: no cervical lymphadenopathy Results & Data Results & Data Vital Signs (Past 12 Hours) Vital Signs Temp Pulse Pulse Resp BP BP BP 01/12/25 13:48 73 18 01/12/25 13:11 84 01/12/25 12:53 124/68 01/12/25 12:48 69 24 01/12/25 12:48 126/67 01/12/25 12:45 73 24 01/12/25 12:43 141/85 H 01/12/25 12:40 152/105 H 01/12/25 10:58 36.6 C 64 22 129/72 01/12/25 10:36 63 24 01/12/25 10:30 61 20 113/65 01/12/25 09:05 01/12/25 07:38 36.4 C L 62 21 105/60 01/12/25 07:00 59 L 01/12/25 02:50 61 22 01/12/25 02:31 36.3 C L 67 20 105/57 L Pulse Ox O2 Del Method FiO2 01/12/25 13:48 100 60 01/12/25 13:11 01/12/25 12:53 01/12/25 12:48 100 Mechanical Vent 01/12/25 12:48 01/12/25 12:45 100 01/12/25 12:43 01/12/25 12:40 01/12/25 10:58 94 BiPAP 01/12/25 10:36 97 30 01/12/25 10:30 95 BiPAP 01/12/25 09:05 BiPAP 01/12/25 07:38 91 BiPAP 01/12/25 07:00 01/12/25 02:50 95 40 01/12/25 02:31 93 BiPAP Critical Care Results & Data Vital Signs (Past 12 Hours) Vital Signs Temp Pulse Pulse Resp BP BP BP 01/12/25 13:55 01/12/25 13:48 73 18 01/12/25 13:21 67 22 01/12/25 13:11 84 01/12/25 13:08 125/68 01/12/25 13:06 60 24 01/12/25 13:05 122/62 01/12/25 12:58 115/64 01/12/25 12:55 110/66 01/12/25 12:54 64 24 01/12/25 12:53 124/68 01/12/25 12:53 124/68 01/12/25 12:48 69 24 01/12/25 12:48 126/67 01/12/25 12:45 73 24 01/12/25 12:43 141/85 H 01/12/25 12:40 152/105 H 01/12/25 10:58 36.6 C 64 22 129/72 01/12/25 10:36 63 24 01/12/25 10:30 61 20 113/65 01/12/25 09:05 01/12/25 07:38 36.4 C L 62 21 105/60 01/12/25 07:00 59 L 01/12/25 02:50 61 22 01/12/25 02:31 36.3 C L 67 20 105/57 L Pulse Ox O2 Del Method FiO2 01/12/25 13:55 60 01/12/25 13:48 100 60 01/12/25 13:21 100 Mechanical Vent 60 01/12/25 13:11 01/12/25 13:08 01/12/25 13:06 100 Mechanical Vent 60 01/12/25 13:05 01/12/25 12:58 01/12/25 12:55 01/12/25 12:54 100 01/12/25 12:53 01/12/25 12:53 01/12/25 12:48 100 Mechanical Vent 01/12/25 12:48 01/12/25 12:45 100 01/12/25 12:43 01/12/25 12:40 01/12/25 10:58 94 BiPAP 01/12/25 10:36 97 30 01/12/25 10:30 95 BiPAP 01/12/25 09:05 BiPAP 01/12/25 07:38 91 BiPAP 01/12/25 07:00 01/12/25 02:50 95 40 01/12/25 02:31 93 BiPAP Lab & Micro Results (Past 24 Hours) RBC 4.42 M/uL (4.20-5.40) 01/12/25 WBC 6.34 K/ul (4.8-10.8) 01/12/25 Hgb 11.3 g/dl (12.0-16.0) L 01/12/25 Hct 39.1 % (37.0-47.0) 01/12/25 MCV 88.5 fL (80.0-100.0) 01/12/25 MCH 25.6 pg (25.0-34.0) 01/12/25 MCHC 28.9 g/dL (32.0-36.0) L 01/12/25 RDW Standard Deviation 53.6 fL (36.4-46.3) H 01/12/25 RDW Coefficient of Variation 16.4 % (11.5-14.5) H 01/12/25 Plt Count 191 K/uL (130-400) 01/12/25 MPV 9.7 fL (9.4-12.4) 01/12/25 Na 135 mmol/L (136-145) L 01/12/25 K 5.1 mmol/L (3.5-5.1) 01/12/25 Cl 100 mmol/L (98-107) 01/12/25 CO2 33 mmol/L (21-32) H 01/12/25 Anion Gap 2 (3-11) L 01/12/25 BUN 59 mg/dl (6-23) H 01/12/25 Creatinine 2.19 mg/dl (0.6-1.2) H 01/12/25 BUN/Creatinine Ratio 26.9 (10-20) H 01/12/25 Glu 157 mg/dl (70-99(Fasting)) H 01/12/25 Ca 8.0 mg/dl (8.6-10.3) L 01/12/25 Mg 2.0 mg/dl (1.7-2.4) 01/12/25 07:04 Calcium Level 8.0 mg/dl (8.6-10.3) L 01/12/25 07:04 Venous Blood pH 7.23 (7.36-7.41) L 01/12/25 09:54 Venous Blood Partial Pressure CO2 70 mmHg (38-50) H 01/12/25 09 :54 Venous Blood Partial Pressure O2 60 mmHg 01/12/25 09:54 Venous Blood HCO3 29 mmol/L 01/12/25 09:54 Venous Blood Base Excess -0.1 mEq/L 01/12/25 09:54 Venous Blood Oxygen Saturation 90.7 % 01/12/25 09:54 Mauro Test NA 01/12/25 13:21 Diagnostic Findings (Past 24 Hours) Chest X-Ray 01/12/25 13:26 XR chest 1V portable CLINICAL HISTORY: intubation COMPARISON STUDY: 01/09/2025 FINDINGS: Endotracheal tube tip is 2 cm above the suki. Left central catheter tip is near the brachiocephalic SVC junction. There is stable cardiomegaly with mild pulmonary vascular congestion. Inspiration is shallow. There is interval hazy and stranding opacity at the right upper lung. No pleural effusion or pneumothorax seen. IMPRESSION: 1. Endotracheal tube tip is 2 cm above the suki. 2. Interval stranding and hazy opacity at the right upper lung, atelectasis or pneumonia. ACT 112: Negative or not required by law. Electronically signed by: Jamal Cid M.D. 01/12/2025 2:06 PM I & O Totals 24 Hours 01/11/25 01/12/25 01/13/25 06:59 06:59 06:59 Intake Total 170.25 / 170.25 340 / 340 Output Total 700 / 700 250 / 250 Balance -529.75 / -529.75 340 / 340 -250 / -250 Cumulative 01/08/25 21:36 thru 01/12/25 13:28 Intake Total 610.25 Output Total 950 Balance -339.75 RT Ventilator Mngmt (Last Documented) Ventilator Ordered Settings Ventilator Support Mode Assist Control 01/12/25 13:55 Respiratory Rate 18 01/12/25 13:48 Ventilator Tidal Volume 460 01/12/25 13:55 Setting Minute Ventilation 11 01/12/25 13:48 Positive End Expiratory 7 01/12/25 13:55 Pressure Fraction of Inspired Oxygen 60 01/12/25 13:55 Ventilator - PT Measurements Respiratory Rate 18 Exhaled Tidal Volume 460 Minute Ventilation 11 Peak Inspiratory Airway 52 Pressure Plateau Pressure 28 Respiratory Cycle Inspiratory: 1:2.7 Expiratory Ratio Inspiratory Phase Time 0.65 End-Tidal CO2 44 Static Lung Compliance 21.90 Dynamic Lung Compliance 10.22 Normal Static Lung Compliance 41.00 Coding Level of Care Code 26869 CRITICAL CARE EA ADD 30M Diagnoses Cardiac arrest I46.9 Aspiration into respiratory tract T17.908A Acute on chronic heart failure with preserved ejection fraction I50.33 Pickwickian syndrome E66.2 Pulmonary hypertension I27.20 Chronic hypoxic respiratory failure, on home oxygen therapy J96.11; Z99.81 Morbid obesity E66.01
[2025-01-12] MEDS: ICU Protocol for HYPERglycemia SCH (16:19)
--- NOTE | 2025-01-12 16:38 | Hospitalist Progress Note ---
Date of Service January 12, 2025 delayed entry date of service noted above Assessment & Plan (1) Acute and chronic respiratory failure with hypercapnia: Plan: Cardiopulmonary arrest secondary to possible aspiration Intubated, transferred to ICU for further care Acute on chronic hypoxemic, hypercapnic respiratory failure Secondary to HFpEF secondary to missed home medications, uncontrolled BP Underlying pulmonary hypertension hx chronic respiratory failure secondary to COPD/RLD on home O2 OHS on CPAP 01/10 remains on 2 L NC continue Lasix 60mg IV BID VBG improving, continue Bipap appreciate Cardiology and Pulmonology service recommendations 01/11 Continue Lasix IV twice daily Continue BiPAP Repeat VBG tomorrow 01/12 Lasix IV continued Cardiology on board Hypertensive Urgency -Carvedilol 3.125 mg BID resumed -Amlodipine 2.5 mg daily also added--> BP on the lower side, discontinued R lower leg wounds no signs of infection continue daily wound care back facer consulted monitor closely Abnormal CT scan, chest: per manager subway: Radiology noted a mild left basal pleural thickening and mild dependent reticular and ill-defined groundglass opacities in the basal segments of the left lower lobe. I suspect these are likely related to atelectasis and small chronic effusion. Recommend a follow-up CT chest in about 3 months. Troponin elevation secondary to above hyperlipidemia, on statin Rx DM2 insulin requiring, suboptimal control as of recent hemoglobin A1c of 8.25 September 2024 CRI, creatinine mildly increased anxiety/mood disorder, at baseline past tobacco abuse DVT prophylaxis. Heparin subcu Full code plan of care discussed with patient's brother in detail over the phone all questions answered he is understanding, agreeable, comfortable with the plan of care Admission and Anticipated Discharge Date Admission Date: January 09, 2025 Subjective ff up for CHF exacerbation, etc Notified by RN, patient is drowsy Stat VBG ordered Results reviewed, advised to message pulmonary service regarding changes of BiPAP settings Respiratory therapist changed BiPAP settings and will discuss with Dr. Samuel seen resting in bed, BiPAP mask on Patient sleeping but easily awakened Answering questions appropriately States breathing is fine Denies chest pain, palpitations, dizziness No other new symptoms CODE BLUE announced overhead Patient immediately seen at the bedside Code already progress including CPR Dr. Samuel arrived at bedside Patient intubated, received epinephrine Resuscitated and was transferred to ICU patient's brother updated over the phone Review of Systems Review of Systems: all noted and negative except for above Physical Exam Physical Exam: General- oriented, not in distress, speaks in sentences with no effort or accessory muscle use Eyes- anicteric Neck- no JVD Lungs- mild rales at the bases Heart- normal rate, regular rhythm; no murmurs Abdomen- normal bowel sounds, nondistended, soft, nontender Extremities- mild pretibial edema, no calf tenderness Neuro- alert, oriented, no new gross focal neurologic deficits Skin- warm & dry Results & Data Results & Data Vital Signs (Past 12 Hours) Vital Signs Temp Pulse Pulse Resp BP BP BP 01/12/25 16:00 01/12/25 15:16 168/66 H 01/12/25 15:15 37.2 C 81 22 01/12/25 15:01 201/85 H 01/12/25 15:00 37.2 C 78 22 01/12/25 14:42 37.2 C 76 22 01/12/25 14:17 01/12/25 13:55 01/12/25 13:48 73 18 01/12/25 13:21 67 22 01/12/25 13:11 84 01/12/25 13:08 125/68 01/12/25 13:06 60 24 01/12/25 13:05 122/62 01/12/25 12:58 115/64 01/12/25 12:55 110/66 01/12/25 12:54 64 24 01/12/25 12:53 124/68 01/12/25 12:53 124/68 01/12/25 12:48 69 24 01/12/25 12:48 126/67 01/12/25 12:45 73 24 01/12/25 12:43 141/85 H 01/12/25 12:40 152/105 H 01/12/25 10:58 36.6 C 64 22 129/72 01/12/25 10:36 63 24 01/12/25 10:30 61 20 113/65 01/12/25 09:05 01/12/25 07:38 36.4 C L 62 21 105/60 01/12/25 07:00 59 L Pulse Ox O2 Del Method FiO2 01/12/25 16:00 60 01/12/25 15:16 01/12/25 15:15 98 Mechanical Vent 01/12/25 15:01 01/12/25 15:00 99 Mechanical Vent 01/12/25 14:42 100 Mechanical Vent 01/12/25 14:17 Mechanical Vent 01/12/25 13:55 60 01/12/25 13:48 100 60 01/12/25 13:21 100 Mechanical Vent 60 01/12/25 13:11 01/12/25 13:08 01/12/25 13:06 100 Mechanical Vent 60 01/12/25 13:05 01/12/25 12:58 01/12/25 12:55 01/12/25 12:54 100 01/12/25 12:53 01/12/25 12:53 01/12/25 12:48 100 Mechanical Vent 01/12/25 12:48 01/12/25 12:45 100 01/12/25 12:43 01/12/25 12:40 01/12/25 10:58 94 BiPAP 01/12/25 10:36 97 30 01/12/25 10:30 95 BiPAP 01/12/25 09:05 BiPAP 01/12/25 07:38 91 BiPAP 01/12/25 07:00 all noted and reviewed including below
[2025-01-12] MEDS: ALBUTEROL 0.083% NEBU SOLN 3 ML VIAL NEB STA (17:17)
[2025-01-12] MEDS: 4.5GM X1 IV STA (21:51)
[2025-01-12] MEDS: ICU ELECTROLYTE REPLACEMENT PROTOCOL SCH (22:10)
[2025-01-13] MEDS ORDERED: Nursing to Pharmacy Communication SCH ×2 (00:45→15:33)
[2025-01-13] MEDS: PIPERACILLIN/TAZOBACTAM 4.5 GM/100 ML BAG IV SCH (02:45)
[2025-01-13 03:48] LABS: iSTAT Art Bld Gas pCO2 Correct 33 mmHg (35-46); iSTAT Art Bld Gas pH Corrected 7.514 (7.35-7.45); iSTAT Arterial Blood Gas HCO3 27 meg/L (19-24); iSTAT Arterial Blood Gas pCO2 32 mmHg (35-46); iSTAT Arterial Blood Gas pH 7.53 (7.35-7.45); iSTAT Arterial Blood Gas pO2 64 mmHg (80-95); iSTAT Arterial Blood Gas pO2 C 67; iSTAT Carbon Dioxide 28 mmol/L (24-31); iSTAT FiO2 40 %; iSTAT Hematocrit 32 % (37-47); iSTAT Hemoglobin 10.9 g/dl (12.0-16.0); iSTAT Potassium 4.1 mmol/L (3.3-5.0); iSTAT Sample Type Arterial; iSTAT Site Art Line; iSTAT Sodium 137 mmol/L (135-144); iSTAT SpO2 95
[2025-01-13 05:19] LABS: BUN Creatinine Ratio 29.7 (10-20); Creatinine Clr Calc Pharmacy 35.5 ml/min; Phosphorus 2.5 mg/dl (2.5-4.9); Potassium 4.2 mmol/L (3.5-5.1)
[2025-01-13 05:33] LABS: Troponin I High Sensitivity 596.2 pg/ml (0-14)
[2025-01-13] MEDS: INSULIN ASPART PER UNIT CHARGE SC SCH (05:47)
[2025-01-13] MEDS: MAGNESIUM SULFATE / D5W 1 GM/100 ML BAG IV SCH (05:49)
[2025-01-13 06:53] LABS: Basophils # (auto) 0.05 K/uL (0.00-0.20); Basophils % (auto) 0.5 %; Eosinophils # (auto) 0.06 K/uL (0.00-0.50); Eosinophils % (auto) 0.6 %; Hematocrit (blood only) 32.6 % (37.0-47.0); Hemoglobin 10.2 g/dl (12.0-16.0); Immature Granulocytes # (auto) 0.03 K/uL (0.01-0.20); Immature Granulocytes % (auto) 0.3 %; Lymphocytes # (auto) 0.93 K/uL (1.20-3.40); Mean Corpuscular Hgb Conc 31.3 g/dL (32.0-36.0); Monocytes # (auto) 0.93 K/uL (0.11-0.59); Neutrophils # (auto) 7.27 K/uL (1.40-6.50); Neutrophils % (auto) 78.6 %; Platelet Count 166 K/uL (130-400); RDW Coefficient of Variation 16.2 % (11.5-14.5); RDW Standard Deviation 49.7 fL (36.4-46.3); Red Blood Count 3.93 M/uL (4.20-5.40); White Blood Count 9.27 K/ul (4.8-10.8)
--- NOTE | 2025-01-13 08:03 | Critical Care Progress Note ---
Date of Service January 13, 2025 Assessment & Plan (1) Cardiac arrest: (2) Aspiration into respiratory tract: (3) Acute on chronic heart failure with preserved ejection fraction: (4) Pickwickian syndrome: (5) Pulmonary hypertension: (6) Chronic hypoxic respiratory failure, on home oxygen therapy: (7) Morbid obesity: Plan Impression: 69-year-old female with multiple medical issues including acute on chronic hypoxemic respiratory failure and hypercarbic respiratory failure with noncompliance with noninvasive positive pressure ventilation at home admitted with shortness of breath and fluid overload. She was diuresed and being treated with BiPAP but suffered an aspiration event 01/12/2025 resulting in cardiac arrest and prolonged PEA code. She is now in the ICU intubated and on an epinephrine infusion. 24-hour events: Patient underwent bronchoscopy postarrest with removal of moderate amounts of aspirated food product. Her ventilator settings have been weaned down to 40% FiO2. She has been titrated down to off of her epinephrine. Recommendations: 1. Neurologic: Prolonged ACLS. The patient is at risk for neurological sequelae including anoxic brain injury. She is withdrawing slightly to painful stimulus. Continue low-dose gabapentin given potential withdrawal syndrome. Remains sedated on propofol. Will obtain head CT to evaluate for possible findings of anoxia. Will perform sedation vacation and assess mental status today as well. 2. Cardiovascular: PEA arrest likely secondary to aspiration event and hypoxemia. Bedside echo showed underfilled left ventricle with slightly dilated right ventricle consistent with the patient's history of pulmonary hypertension. Responded well to IV fluids. Weaned off of pressors at this time. 3. Pulmonary: Massive aspiration event. Chest x-ray shows haziness right greater than left consistent with aspiration. Bronchoscopy was performed with removal of multiple pieces of organic material. Consideration for bronchoscopic evaluation today to reassess lung guerrero and clear additional material. No indication for steroids or antibiotics currently unless the patient develops persistent fever, leukocytosis, or progressive airspace opacity. Continue lung protective ventilation although the patient does have evidence of air trapping and auto PEEP currently so we will need to reassess as she is sedated. 4. ID: Started on Zosyn overnight as she was spiking fevers. 5. GI: N.p.o. for now. Initiate PPI. 6. Renal: ICU electrolyte replacement protocol. Hold diuretics for now in light of what her echocardiogram looks like. Will need frequent reassessment. Acid-base status demonstrates chronic hypercarbic respiratory failure with superimposed acute hypercapnia. Will follow blood gases and adjust as necessary. 7. Endocrine: Glycemic control per protocol. 8. Heme-onc: No current issues. DVT prophylaxis will be continued. 9. Goals of care: Will be obtained CT scan to assess any overt neurological findings, will discuss with the patient's brother who is listed as a point of co ntact. Her condition remains guarded at this time. Patient is critically ill at this point in time with significant possibility of clinical decline and/or . A total of 35 minutes in critical care time exclusive of procedures was spent evaluation management coordination of care for this patient. No family immediately available Admission and Anticipated Discharge Date Admission Date: January 09, 2025 Supervising Physician Co-Signing Physician Notes Patient seen and examined. EMR reviewed. Discussed with bedside critical care nurse and with critical care IW[place] and on multidisciplinary rounds. Unfortunately patient remains somewhat obtunded and mechanical ventilator dependent. Will plan on performing SERVICE DESK DIRECTOR imaging and decreasing sedation to see where she is neurologically. Given her prolonged arrest, she is at risk for anoxic encephalopathy. Repeat bronchoscopy will be performed to assess airway inflammation and remove any additional particulate matter. Agree with antibiotics. Will obtain cultures from lower respiratory tree to guide antimicrobial therapy moving forward. Consider initiation of trophic tube feeds. Will try and reach out to family to determine goals of care. Patient not ready for ventilator liberation currently and remains critically ill with significant possibility of clinical deterioration Subjective Patient was seen and evaluated at bedside. She is sedated with propofol. She withdraws to tactile stimuli. She was weaned off of vasopressor support overnight. Review of Systems Review of Systems: Unable to obtain. Physical Exam Constitutional: + morbidly obese and + disheveled Neck: trachea midline, no thyromegaly Respiratory: no labored breathing and no cough Auscultation: + rhonchi; no wheezes Cardiovascular: RRR, no murmur, no edema Gastrointestinal (Abdomen): normal bowel sounds, soft, nontender, no hepato splenomegaly Musculoskeletal: Extremities: extremities normal to inspection Skin: no rashes, warm and dry Neurologic: No purposeful movement at this time. Pupils small but reactive Lymphatic: no cervical lymphadenopathy Results & Data Results & Data Vital Signs (Past 12 Hours) Vital Signs Temp Pulse Pulse Resp BP BP BP 01/13/25 07:35 57 L 18 01/13/25 06:59 57 L 01/13/25 06:00 37.5 C 58 L 18 123/63 113/59 L 01/13/25 05:00 37.6 C H 58 L 18 92/48 L 01/13/25 04:09 57 L 18 01/13/25 04:00 37.7 C H 56 L 18 93/52 L 01/13/25 04:00 01/13/25 03:00 37.7 C H 57 L 24 103/54 L 01/13/25 02:09 37.8 C H 57 L 24 105/56 L 01/13/25 01:00 37.9 C H 60 24 110/55 L 01/13/25 00:00 37.8 C H 61 24 120/56 L 01/13/25 00:00 66 01/13/25 00:00 01/12/25 23:00 37.9 C H 65 24 130/61 01/12/25 22:40 67 24 01/12/25 22:00 37.9 C H 66 24 127/55 L 01/12/25 21:00 01/12/25 21:00 38.0 C H 75 24 157/71 H Pulse Ox O2 Del Method FiO2 01/13/25 07:35 93 40 01/13/25 06:59 01/13/25 06:00 95 Mechanical Vent 40 01/13/25 05:00 94 Mechanical Vent 40 01/13/25 04:09 94 40 01/13/25 04:00 94 Mechanical Vent 40 01/13/25 04:00 40 01/13/25 03:00 95 Mechanical Vent 40 01/13/25 02:09 95 Mechanical Vent 40 01/13/25 01:00 94 Mechanical Vent 40 01/13/25 00:00 93 Mechanical Vent 40 01/13/25 00:00 01/13/25 00:00 40 01/12/25 23:00 94 Mechanical Vent 40 01/12/25 22:40 94 40 01/12/25 22:00 93 Mechanical Vent 40 01/12/25 21:00 Mechanical Vent 40 01/12/25 21:00 93 Mechanical Vent 40 Coding Level of Care Code 51185 SUB INP/OBS CARE 2/35MIN Diagnoses Cardiac arrest I46.9 Aspiration into respiratory tract T17.908A Acute on chronic heart failure with preserved ejection fraction I50.33 Pickwickian syndrome E66.2 Pulmonary hypertension I27.20 Chronic hypoxic respiratory failure, on home oxygen therapy J96.11; Z99.81 Morbid obesity E66.01
--- NOTE | 2025-01-13 08:39 | XRay Report ---
EXAM: XR chest 1V portable CLINICAL HISTORY: resp failure. TECHNIQUE: An X-ray image of the chest is obtained in AP projection. COMPARISON: 01/09/2025 CR. FINDINGS: Lines and tubes: ETT with tip 3.1cm from the suki NGT with tip just below the diaphragm, need for more insertion. Left CVL with tip in the cavoatrial junction. Pulmonary Parenchyma: Interval demonstration of diffuse right lung patchy opacities. Interval demonstration of a mild left pleural effusion Heart and Mediastinum: Heart size and shape are normal. No mediastinal widening or masses. No hilar or mediastinal lymphadenopathy. Bony Thorax: Bony thorax appears intact without fractures or deformities. Soft Tissues: Soft tissues overlying the chest wall are unremarkable. IMPRESSION: 1. NGT with tip just below the diaphragm, need for more insertion. 2. ETT and left CVL in proper position. 3. Interval demonstration of diffuse right lung patchy opacities, could be due to edema/infectious process. please correlate clinically. 4. Interval increase of a mild left pleural effusion. Electronically signed by Jacky Villasenor 01-13-2025 08:38 AM
--- NOTE | 2025-01-13 10:05 | Cardiology Progress Note ---
Date of Service January 13, 2025 Assessment & Plan (1) Acute and chronic respiratory failure with hypercapnia: (2) Pickwickian syndrome: (3) Acute on chronic heart failure with preserved ejection fraction: (4) Hypertensive urgency: Plan 01/11/25 Patient admitted with multifactorial SOB/hypoxia, hypertensive urgency secondary to non compliance with her outpatient diuretics and antihypertensive therapy. History of morbid obesity, chronic respiratory failure/pickwickian, PAOLA with CPAP, HFpEF with several admissions over the last 6 months to [facility], treated with IV lasix and BIPAP therapy. Acute HFpEF - Weight has trended down, but appears unchanged from yesterday - Increase furosemide 80 mg twice daily and will give additional metolazone 10 mg today - Once euvolemic can transition back to torsemide home dose was 60 mg daily which she reported was doing well until she ran out of medication -Monitor I+O's -Fluid restriction of 1500 ml -Monitor renal function/electrolytes -Daily weight with standing scale -Patient follows with [facility] - Per review of records she has not been on guideline directed medical therapies with CHRISTOPHER/ARB, spironolactone due to baseline renal insufficiency? Hypertensive urgency -Due to non compliance with oral medications -Carvedilol 3.125 mg BID resumed -Continue IV diuretics -Amlodipine 2.5 mg daily also added. -Could consider low dose CHRISTOPHER/ARB vs Entresto as an outpatient based on renal function. -BP improved PAOLA -continue CPAP -compliance encouraged 01/12/25: Patient treated with IV diuretics and 10 mg of metolazone yesterday Outputs not measured? Standing Weight not completed this morning. Recommend weight on standing scale Monitor I+O's She was mildly hypotensive overnight. Amlodipine stopped (this was added on admission due to HTN urgency) Hold additional diuretics this morning. Creatinine stable from yesterday at 2.1. (Baseline appears to be 1.5-1.8) Transition from carvedilol 3.125 mg BID to metoprolol succinate 25 mg daily due to hypotension She is not on other GDMT possibly due to renal insufficiency? She follows with [facility]. Will need f/u on discharge. She was doing well on torsemide 60 mg daily prior to running out of medication. Continue statin 01/13/25 Patient with unfortunate aspiration event yesterday leading to cardiopulmonary arrest with 20 min of CPR. Pulse restored and bedside echo with hyperdynamic LVEF, dilated RV. Bronchoscopy done post event and removed gastric material. No longer requiring vasopressors. HR/BP stable. Still sedated. Appreciate critical care team recommendations. Await neurologic evaluation. Case discussed with Dr. Kary Wetzel PA-C Department of Cardiology, [facility] This chart was completed in part utilizing Speech Voice Recognition Software. Grammatical errors, random word insertions, pronoun errors, and incomplete sentences are an occasional consequence of this system due to software limitations, ambient noise, and hardware issues. Any formal questions or concerns about the content, text, or information contained within the body of this dictation should be directly addressed to the provider for clarification. Admission and Anticipated Discharge Date Admission Date: January 09, 2025 Supervising Physician Co-Signing Physician Notes I have personally performed a history and physical examination on the patient. I have reviewed the advance practitioner's documentation, and I agree with, and take responsibility for the plan of care. 69-year-old female seen and examined on ventilator. Currently on hold patient opening her eyes however minimally minimally responsive at this time. Intubation precipitated by aspiration event and CODE BLUE. CPR performed for approximately 20 minutes. Repeat bronchoscopy demonstrating gastric material. Patient no longer requiring vasopressor agents. Breathing trial later today with possible extubation per critical care medicine. I spent a total of 25 minutes on the date of service in preparation, delivery, and documentation of the care provided to this patient, excluding any time spent in the performance of separately billed services. Paul Preston DO, [facility] Subjective Yesterday around lunchtime patient had aspiration event with cardiopulmonary arrest. Now on mechanical vent and sedated. No longer on pressors. Review of Systems Review of Systems: Unobtainable due to endotracheal tube Physical Exam Constitutional: + morbidly obese and + mechanically vent ilated Neck: + thick neck Respiratory: Auscultation: + diminished lung sounds Cardiovascular: Rate/Rhythm: regular rate and regular rhythm Heart Sounds: no murmur (No audible murmur, distant heart sounds) Extremities: + edema (1+ LE edema with chronic stasis changes) Gastrointestinal (Abdomen): normal bowel sounds, soft, nontender, no hepatosplenomegaly Results & Data Vital Signs (Past 12 Hours) Vital Signs Temp Pulse Pulse Resp BP BP BP 01/13/25 08:00 04/22/25 07:35 57 L 18 01/13/25 06:59 57 L 01/13/25 06:00 37.5 C 58 L 18 123/63 113/59 L 01/13/25 05:00 37.6 C H 58 L 18 92/48 L 01/13/25 04:09 57 L 18 01/13/25 04:00 37.7 C H 56 L 18 93/52 L 01/13/25 04:00 01/13/25 03:00 37.7 C H 57 L 24 103/54 L 01/13/25 02:09 37.8 C H 57 L 24 105/56 L 01/13/25 01:00 37.9 C H 60 24 110/55 L 01/13/25 00:00 37.8 C H 61 24 120/56 L 01/13/25 00:00 66 01/13/25 00:00 01/12/25 23:00 37.9 C H 65 24 130/61 01/12/25 22:40 67 24 01/12/25 22:00 37.9 C H 66 24 127/55 L Pulse Ox O2 Del Method FiO2 01/13/25 08:00 40 01/13/25 07:35 93 40 01/13/25 06:59 01/13/25 06:00 95 Mechanical Vent 40 01/13/25 05:00 94 Mechanical Vent 40 01/13/25 04:09 94 40 01/13/25 04:00 94 Mechanical Vent 40 01/13/25 04:00 40 01/13/25 03:00 95 Mechanical Vent 40 01/13/25 02:09 95 Mechanical Vent 40 01/13/25 01:00 94 Mechanical Vent 40 01/13/25 00:00 93 Mechanical Vent 40 01/13/25 00:00 01/13/25 00:00 40 01/12/25 23:00 94 Mechanical Vent 40 01/12/25 22:40 94 40 01/12/25 22:00 93 Mechanical Vent 40 Laboratory Results Cardiac Enzymes 01/12/25 01/12/25 01/13/25 Range/Units 14:27 21:31 04:33 Troponin I High Sens 211.6 H* 733.7 H* D 596.2 H* (0-14) pg/ml CBC 01/13/25 Range/Units 04:33 WBC 9.27 (4.8-10.8) K/ul RBC 3.93 L (4.20-5.40) M/uL Hgb 10.2 L (12.0-16.0) g/dl Hct 32.6 L (37.0-47.0) % Plt Count 166 (130-400) K/uL Neut # (Auto) 7.27 H (1.40-6.50) K/uL Lymph # (Auto) 0.93 L (1.20-3.40) K/uL Roberts # (Auto) 0.93 H (0.11-0.59) K/uL Eos # (Auto) 0.06 (0.00-0.50) K/uL Baso # (Auto) 0.05 (0.00-0.20) K/uL Comprehensive Metabolic Panel 01/13/25 Range/Units 04:33 Sodium 138 (136-145) mmol/L Potassium 4.2 (3.5-5.1) mmol/L Chloride 102 (98-107) mmol/L Carbon Dioxide 30 (21-32) mmol/L BUN 58 H (6-23) mg/dl Creatinine 1.95 H (0.6-1.2) mg/dl Glucose 143 H (70-99(Fasting)) mg/dl Calcium 8.0 L (8.6-10.3) mg/dl Intake and Output 01/12/25 01/13/25 01/13/25 22:59 06:59 14:59 Intake Total 2355.271 / 2655.271 300.000 / 2655.271 120.59 / 120.59 Output Total 975 / 1710 485 / 1710 150 / 150 Balance 1380.271 / 945.271 -185.000 / 945.271 -29.41 / -29.41 Intake: IV 2325.271 / 2625.271 300.000 / 2625.271 120.59 / 120.59 EPINEPHrine/NSS 4 mg In 254 ml 45 / 45 @ 0.02 MCG/KG/MIN 9.03 mls/hr IV .Q24H [facility] Rx#:[id number] Magnesium Sulfate / D5w 1 gm In 100 / 100 100 ml @ 50 mls/hr IV Q2H [facility] Rx#:[id number] Piperacillin/Tazobactam 4.5 gm 100 / 200 100 / 200 In 100 ml @ 25 mls/hr IV Q8H [facility] Rx#:[id number] Plasma-Lyte A 2,000 ml @ 999 2000 / 2000 mls/hr IV .Q2H1M ONE Rx#: [id number] propofoL 1,000 mg In 100 ml @ 180.271 / 380.271 200.000 / 380.271 20.59 / 20 .59 30 MCG/KG/MIN 21.33 mls/hr IV . Q4H42M [facility] Rx#:[id number] Oral 0 / 0 0 / 0 Tube Feeding 0 / 0 Tube Irrigant 30 / 30 Output: Urine Amount (Catheter) 975 / 1710 485 / 1710 150 / 150 Thompson/Indwelling 975 / 1710 485 / 1710 150 / 150 Other: Weight 122.6 kg Weight Measurement Method Built in [facility] Diagnostic Findings Telemetry reviewed: NSR in the 50's Medications Administered Current Inpatient Medications Acetaminophen (Acetaminophen 325 Mg Tab) 650 mg PO QID PRN PRN Reason: pain/fever Stop: 02/08/25 04:44 Last Admin: 01/11/25 21:17 Dose: 650 mg Cyanocobalamin (Cyanocobalamin (B-12) 500 Mcg Tablet) 1,000 mcg PO DAILY [facility] Stop: 02/08/25 08:59 Last Admin: 01/13/25 07:50 Dose: 1,000 mcg Dextrose (Dextrose 50% 50 Ml Syringe) 25 - 50 ml IV UD PRN; Protocol PRN Reason: Hypoglycemia Protocol Stop: 02/08/25 05:18 Fentanyl Citrate (Fentanyl Citrate Pf 100 Mcg/2 Ml Vial) 50 mcg IV Q2H PRN PRN Reason: Moderate Pain (4,5,6) on NRS Stop: 01/26/25 13:30 Furosemide (Furosemide 40 Mg/4 Ml Vial) 80 mg IV BID [facility]ERTO Stop: 02/10/25 20:59 Last Admin: 01/11/25 21:16 Dose: 80 mg Gabapentin (Gabapentin 100 Mg Cap) 200 mg PO TID ALBERTO Stop: 02/11/25 08:59 Last Admin: 01/13/25 07:52 Dose: 200 mg Glucagon (Glucagon For Inj 1 Mg Vial) 1 mg SQ UD PRN; Protocol PRN Reason: Hypoglycemia Protocol Stop: 02/08/25 05:18 Glucose (Glucose 40% Gel 15 Gm Tube) 15 - 30 gm PO UD PRN; Protocol PRN Reason: Hypoglycemia Protocol Stop: 02/08/25 05:18 Glucose (Glucose 10 Tab/Tube) 4 - 8 tab PO UD PRN; Protocol PRN Reason: Hypoglycemia Protocol Stop: 02/08/25 05:18 Heparin Sodium (Beef Lung) (Heparin 10 Unit/Ml 5 Ml Flush) 5 ml FLUSH PRN PRN PRN Reason: Flush Stop: 02/12/25 03:37 Heparin Sodium (Porcine) (Heparin Sod 5,000 Unit/0.5 Ml Vial) 5,000 units SQ Q8H [facility]BERTO Stop: 02/08/25 05:59 Last Admin: 01/13/25 05:45 Dose: 5,000 units Promethazine HCl (Phenergan) 6.25 mg in 50.25 mls @ 201 mls/hr IV Q6H PRN PRN Reason: Nausea And Vomiting Stop: 02/08/25 04:44 Last Infusion: 01/10/25 09:50 Dose: Infused Epinephrine HCl () 4 mg in 254 mls @ 9.03 mls/hr IV .Q24H [facility]BERT[facility]; Protocol Stop: 02/11/25 13:29 Last Titration: 01/12/25 15:10 Dose: 0 mcg/kg/min, 0 mls/hr Propofol (Diprivan) 1,000 mg in 100 mls @ 21.33 mls/hr IV .Q4H42M [facility]BERTO; Protocol Stop: 01/15/25 13:44 Last Titration: 01/13/25 07:14 Dose: 30 mcg/kg/min, 21.3 mls/hr Piperacillin Sod/Tazobactam Sod (Zosyn) 4.5 gm in 100 mls @ 25 mls/hr IV Q8H [facility]ERTO; Protocol Stop: 01/15/25 02:59 Last Infusion: 01/13/25 06:55 Dose: Infused Insulin Aspart (Insulin Aspart Per Unit Charge) 0 units SC Q6 [facility] Stop: 02/12/25 05:59 Last Admin: 01/13/25 05:47 Dose: 1 units Insulin Glargine (Lantus Per Unit Charge) 5 units SQ HS [facility]O Stop: 02/08/25 20:59 Last Admin: 01/12/25 21:47 Dose: 5 units Miscellaneous (Carbohydrates For Hypoglycemia ) 15 - 30 gm PO UD PRN PRN Reason: Hypoglycemia Protocol Stop: 02/08/25 05:18 Miscellaneous (Icu Electrolyte Replacement Protocol) 1 each N/A BID@,18 [facility]; Protocol Stop: 01/19/25 17:59 Last Admin: 01/13/25 05:23 Dose: 1 each Miscellaneous (Icu Protocol For Hyperglycemia) 1 each N/A ACHS [facility] Stop: 01/14/25 16:29 Last Admin: 01/13/25 07:49 Dose: 1 each Propofol (Propofol Bolus From Bag) 20 mg IV Q5M PRN PRN Reason: Sedation Stop: 01/15/25 13:30 Vitamin D (Cholecalciferol 25 Mcg (1000 Units) Tab) 25 mcg PO DAILY [facility] Stop: 02/08/25 08:59 Last Admin: 01/13/25 07:50 Dose: 25 mcg
--- NOTE | 2025-01-13 10:21 | Electrocardiogram Report ---
Test Reason : Blood Pressure : */* mmHG Vent. Rate : 67 BPM Atrial Rate : 67 BPM P-R Int : 146 ms QRS Dur : 80 ms QT Int : 434 ms P-R-T Axes : 88 94 35 degrees QTcB Int : 458 ms Normal sinus rhythm Rightward axis Abnormal ECG When compared with ECG of 09-Jan-2025 00:37, Nonspecific T wave abnormality no longer evident in Inferior leads Confirmed by Serjio Brandon ([id number]) on 01/13/2025 10:20:59 AM Referred By: REFERRED SELF Confirmed By: Serjio Brandon
--- NOTE | 2025-01-13 11:02 | Procedure Note ---
Procedure Note Date of Service January 13, 2025 Procedure: Fiberoptic bronchoscopy Therapeutic aspiration of secretions, subsequent Provider: Sacha Samuel MD Consent: Patient is intubated and on the ventilator unable to provide verbal or written consent. No family immediately available Procedure: Patient is in the ventilator. She suffered an aspiration event yesterday. Repeat bronchoscopy was warranted to ensure airways remain clear. In addition the patient is now developed fevers and placed on antibiotics for suspicion of potential infectious etiologies. The patient is intubated. She was placed on 100 percent FiO2. The Bodai adapter was placed in line. The fiberoptic scope was advanced through the ventilator circuit via the adapter and through the endotracheal tube. Endotracheal tube was sounded and found to be in good position. Main suki was slightly splayed. Airways demonstrated diffusely inflamed mucosa. There were some mucopurulent secretions emanating from the right lower lobe which were collected via saline lavage in a Luken's trap. These will be sent for microbiologic analysis. Left-sided airways were also diffusely inflamed and swollen however no endobronchial lesion was identified and no additional particulate matter was identified. Impression: 1. Endotracheal tube in good position. 2. Mucopurulent secretions in the right lower lobe. [facility] [place] Procedure Codes (Charges) Pulmonary/Thoracic Procedure 1: Pulmonary and Thoracic: 38154 Bronchoscopy, reclear airway Coding CPT Codes Pulmonary/Thoracic - Pulmonary and Thoracic: 25873 Bronchoscopy, reclear airway ([id number]) Additional Codes Date of Service ([facility].SURGERY)
--- NOTE | 2025-01-13 11:11 | CT Scan Report ---
CT head/brain wo con CLINICAL HISTORY: 69 years-old Female with s/p arrest. Acutely altered mental status with cardiac ar rest TECHNIQUE: Multiple axial CT images of the head were obtained without contrast. A dose lowering tech nique was utilized adhering to the principles of ALARA. CT DOSE: 875.56 mGy.cm COMPARISON: None. FINDINGS: No acute intracranial hemorrhage, midline shift, intracranial mass, hydrocephalus, territorial ischem ia or abnormal extra-axial collection. Involutional changes with white matter hypodensities suggestiv e of chronic microvascular ischemic disease. The calvarium is intact. Polypoid mucosal thickening of the maxillary sinuses. Moderate mucosal thic kening of the ethmoid air cells with secretions noted within the airway. Partially imaged nasogastric tube. Trace mastoid effusions. IMPRESSION: No acute intracranial abnormality identified. ACT 112: Negative or not required by law. The above report was generated using voice recognition software. It may contain grammatical, syntax o r spelling errors. Electronically signed by: Tee Muñoz M.D. 01/13/2025 11:09 AM
--- NOTE | 2025-01-13 12:10 | Communication Note ---
Date of Service: January 13, 2025 1142: Patient's brother, Avinash Servin, contacted the ICU for update. Provided him update of current patient status. Informed him of CT results. Did discuss concerns given that we are starting to wean down the patient's sedation and she does not appear to be waking. Avinash reports that the patient does have a son, Franki, who would ultimately make decisions on behalf of his mother. Additionally, he describes a close friend by the name of "Michelle" who is familiar with medicine and would likely be calling for updates as well. I did initially broach the subject of CODE STATUS, however he informs me that "will take it day by day." I did stress the critical nature and the potential for significant insult that she had received during arrest yesterday. Will continue with current care at this time. Will contact him for any changes.
[2025-01-13] MEDS: GADOBUTROL 65ML VIAL IV ONE (14:51)
--- NOTE | 2025-01-13 15:32 | Magnetic Resonance Report ---
MR brain wo/w con HISTORY: 69 years-old Female s/p arrest acutely altered mental status with recent cardiac arrest COMPARISON: Head CT of same day TECHNIQUE: Multiplanar multisequence MRI of the brain was obtained with and without IV contrast. FINDINGS: No restricted diffusion to suggest an acute or subacute infarct. The midline structures appear unrema rkable. Degenerative changes of the cervical spine. There is no acute intracranial hemorrhage, midlin e shift, abnormal extra-axial collection, hydrocephalus or intra-axial mass. There are a few patchy s ubcentimeter foci of blooming artifact noted within the cerebral hemispheres which may represent smal l foci of hemosiderin. Involutional changes with moderate T2/FLAIR hyperintense foci throughout the w prasad matter. No abnormal intracranial enhancement. Cerebral venous sinuses and major arterial flow voids appear patent. Moderate mucosal thickening of t he paranasal sinuses with polypoid mucosal thickening of the maxillary sinuses. Moderate-sized mastoi d effusions. IMPRESSION: 1. No acute intracranial abnormality. No acute or subacute infarct. 2. No abnormal enhancement. 3. Involutional changes with moderate T2/FLAIR hyperintense foci throughout the white matter likely r epresenting chronic microvascular ischemic disease. 4. Paranasal sinus disease with mastoid effusions. ACT 112: Negative or not required by law. The above report was generated using voice recognition software. It may contain grammatical, syntax o r spelling errors. Electronically signed by: Tee Muñoz M.D. 01/13/2025 3:31 PM
[2025-01-13 15:41] LABS: iSTAT Allen Test Pass; iSTAT Art Bld Gas pCO2 Correct 49 mmHg (35-46); iSTAT Art Bld Gas pH Corrected 7.374 (7.35-7.45); iSTAT Arterial Blood Gas HCO3 28 meg/L (19-24); iSTAT Arterial Blood Gas pCO2 47 mmHg (35-46); iSTAT Arterial Blood Gas pH 7.39 (7.35-7.45); iSTAT Arterial Blood Gas pO2 83 mmHg (80-95); iSTAT Arterial Blood Gas pO2 C 88; iSTAT Carbon Dioxide 30 mmol/L (24-31); iSTAT FiO2 40 %; iSTAT Hematocrit 39 % (37-47); iSTAT Hemoglobin 13.3 g/dl (12.0-16.0); iSTAT Potassium 4.5 mmol/L (3.3-5.0); iSTAT Sample Type Arterial; iSTAT Site R Radial; iSTAT Sodium 136 mmol/L (135-144); iSTAT SpO2 95
--- NOTE | 2025-01-13 18:32 | Hospitalist Progress Note ---
Date of Service January 13, 2025 Assessment & Plan (1) Acute and chronic respiratory failure with hypercapnia: Plan: Cardiopulmonary arrest secondary to possible aspiration Intubated, transferred to ICU for further care 01/13 remains intubated weaned off pressors sedation turned off, observing neurologic status closely given PEA arrest Brain MRI: no acute process EEG: pending on IV Zosyn vent management by District Loss Prevention Manager, appreciate the input Acute on chronic hypoxemic, hypercapnic respiratory failure Secondary to HFpEF secondary to missed home medications, uncontrolled BP Underlying pulmonary hypertension hx chronic respiratory failure secondary to COPD/RLD on home O2 OHS on CPAP maintained on Lasix IV and Bipap Aquarium Specialist and Tooth Cutter Pinion on board Hypertensive Urgency -Carvedilol 3.125 mg BID resumed -Amlodipine 2.5 mg daily also added--> BP on the lower side, discontinued R lower leg wounds no signs of infection continue daily wound care utility spray operator consulted monitor closely Abnormal CT scan, chest: per leather carver: Radiology noted a mild left basal pleural thickening and mild dependent reticular and ill-defined groundglass opacities in the basal segments of the left lower lobe. I suspect these are likely related to atelectasis and small chronic effusion. Recommend a follow-up CT chest in about 3 months. Troponin elevation secondary to above hyperlipidemia, on statin Rx DM2 insulin requiring, suboptimal control as of recent hemoglobin A1c of 8.25 September 2024 CRI, creatinine mildly increased, monitor closely anxiety/mood disorder, at baseline past tobacco abuse DVT prophylaxis. Heparin subcu Full code Admission and Anticipated Discharge Date Admission Date: January 09, 2025 Review of Systems Review of Systems: all noted and negative except for above Results & Data Results & Data Vital Signs (Past 12 Hours) Vital Signs Temp Pulse Resp BP Pulse Ox O2 Del Method FiO2 01/13/25 18:01 74 21 157/72 H 96 Mechanical Vent 01/13/25 17:36 37.8 C H 71 19 94 01/13/25 16:09 37.8 C H 71 19 92 Mechanical Vent 01/13/25 16:01 114/87 01/13/25 16:00 50 01/13/25 16:00 71 01/13/25 15:57 37.8 C H 71 20 01/13/25 15:24 37.8 C H 75 96 Mechanical Vent 01/13/25 15:18 76 18 95 40 01/13/25 15:09 172/88 H 01/13/25 13:54 37.4 C 65 19 94 Mechanical Vent 01/13/25 13:00 146/76 H 01/13/25 13:00 37.4 C 64 19 93 Mechanical Vent 01/13/25 12:06 37.3 C 65 20 95 01/13/25 12:00 149/88 H 01/13/25 12:00 40 01/13/25 11:51 37.3 C 65 18 95 01/13/25 11:32 134/75 01/13/25 11:21 36.6 C 60 22 92 01/13/25 11:21 60 18 93 40 01/13/25 11:02 Mechanical Vent 01/13/25 11:00 37.2 C 63 18 100 01/13/25 11:00 60 01/13/25 10:41 Mechanical Vent 40 01/13/25 10:00 37.3 C 55 L 18 94 Mechanical Vent 01/13/25 10:00 111/57 L 01/13/25 09:00 110/55 L 01/13/25 09:00 37.4 C 56 L 18 93 Mechanical Vent 01/13/25 08:03 37.5 C 56 L 18 93 Mechanical Vent 01/13/25 08:00 107/53 L 01/13/25 08:00 40 01/13/25 07:51 37.5 C 56 L 18 92 Mechanical Vent 01/13/25 07:35 57 L 18 93 40 01/13/25 07:00 113/61 01/13/25 07:00 37.5 C 56 L 18 94 Mechanical Vent 01/13/25 06:59 57 L
[2025-01-14 05:31] LABS: iSTAT Allen Test Pass; iSTAT Art Bld Gas pCO2 Correct 41 mmHg (35-46); iSTAT Art Bld Gas pH Corrected 7.432 (7.35-7.45); iSTAT Arterial Blood Gas HCO3 27 meg/L (19-24); iSTAT Arterial Blood Gas pCO2 40 mmHg (35-46); iSTAT Arterial Blood Gas pH 7.44 (7.35-7.45); iSTAT Arterial Blood Gas pO2 69 mmHg (80-95); iSTAT Arterial Blood Gas pO2 C 73; iSTAT Carbon Dioxide 29 mmol/L (24-31); iSTAT FiO2 50 %; iSTAT Hematocrit 37 % (37-47); iSTAT Hemoglobin 12.6 g/dl (12.0-16.0); iSTAT Potassium 4.2 mmol/L (3.3-5.0); iSTAT Sample Type Arterial; iSTAT Site R Radial; iSTAT Sodium 138 mmol/L (135-144); iSTAT SpO2 93
[2025-01-14 06:00] LABS: Basophils # (auto) 0.06 K/uL (0.00-0.20); Basophils % (auto) 0.6 %; Eosinophils # (auto) 0.07 K/uL (0.00-0.50); Eosinophils % (auto) 0.7 %; Hematocrit (blood only) 37.8 % (37.0-47.0); Hemoglobin 11.4 g/dl (12.0-16.0); Immature Granulocytes # (auto) 0.04 K/uL (0.01-0.20); Immature Granulocytes % (auto) 0.4 %; Lymphocytes # (auto) 0.48 K/uL (1.20-3.40); Lymphocytes % (auto) 4.7 %; Mean Corpuscular Hemoglobin 25.1 pg (25.0-34.0); Mean Corpuscular Hgb Conc 30.2 g/dL (32.0-36.0); Mean Corpuscular Volume 83.3 fL (80.0-100.0); Mean Platelet Volume 9.8 fL (9.4-12.4); Monocytes # (auto) 0.77 K/uL (0.11-0.59); Monocytes % (auto) 7.5 %; Neutrophils # (auto) 8.87 K/uL (1.40-6.50); Neutrophils % (auto) 86.1 %; Platelet Count 171 K/uL (130-400); RDW Coefficient of Variation 16.6 % (11.5-14.5); RDW Standard Deviation 50.4 fL (36.4-46.3); Red Blood Count 4.54 M/uL (4.20-5.40); White Blood Count 10.29 K/ul (4.8-10.8)
[2025-01-14 06:15] LABS: BUN Creatinine Ratio 29.3 (10-20); Calcium 8.5 mg/dl (8.6-10.3); Creatinine Clr Calc Pharmacy 41.9 ml/min; Magnesium 2.3 mg/dl (1.7-2.4); Phosphorus 3.2 mg/dl (2.5-4.9); Potassium 4.3 mmol/L (3.5-5.1)
--- NOTE | 2025-01-14 07:51 | XRay Report ---
EXAM: XR chest 1V portable CLINICAL HISTORY: Resp failure TECHNIQUE: An X-ray image of the chest is obtained in AP projection. COMPARISON: 01/13/2025 CR. FINDINGS: ETT's tip is about 3 cm above the suki. Left-sided PICC line with its tip at the superior cavoatrial junction. NGT is seen coursing below the left hemidiaphragm. However it is holes are seen within the esophagus further downward pushing is needed for adequate position Pulmonary Parenchyma: Interval worsening of the left lung basilar opacity/effusion, mounting to near total opacification of the left hemithorax without evident mediastinal shifting. Interval improving right lung airspace opacities. Mild right-sided vascular congestion. No evident right-sided pleural effusion. Heart and Mediastinum: Heart size can't be commented upon in the current radiograph. Bony Thorax: No acute osseous abnormality. Soft Tissues: Soft tissues overlying the chest wall are unremarkable. IMPRESSION: 1. Interval worsening of the left lung basilar opacity/effusion with now near total opacification of the left hemithorax without evident mediastinal shifting. 2. Interval improving right lung airspace opacities. 3. NGT is seen coursing below the left hemidiaphragm. However it is holes are seen within the esophagus further downward pushing is needed for adequate position. Stable 4. Mild right-sided vascular congestion. 5. ETT's tip is about 3 cm above the suki. 6. Left-sided PICC line with its tip at the superior cavoatrial junction. Electronically signed by Jacky Villasenor 01-14-2025 07:50 AM
--- NOTE | 2025-01-14 08:41 | Procedure Note ---
Procedure Note Date of Service January 14, 2025 Procedure: Fiberoptic bronchoscopy Therapeutic aspiration of secretions, subsequent Provider: Sacha Samuel MD Consent: Procedure was emergent. Patient on the ventilator with whiteout of the left hemithorax. No family immediately available and patient unable to provide consent due to being on the ventilator Procedure: Patient is in the OR on the mechanical ventilator. Chest x-ray demonstrated opacification of left hemithorax this morning. Bronchoscopy was indicated and performed semiurgently. The Bodai adapter was placed in line with the ventilator circuit and the patient placed on high percent FiO2. The fiberoptic scope was advanced through the endotracheal tube via the adapter. Tube was in good position approximately 2 cm above the suki. The airways were diffusely inflamed. There was swelling of the left mainstem bronchus with mucoi d secretions present occluding the lumen. These were cleared with saline lavage. The airway was significantly narrowed Impression: 1. Endotracheal tube in good position. 2. Left mainstem endobronchial obstruction due to mucoid secretions with narrowing of the bronchus due to inflammatory reaction. Consider short course of steroids [facility] – [place] Procedure Codes (Charges) Pulmonary/Thoracic Procedure 1: Pulmonary and Thoracic: 37424 Bronchoscopy, reclear airway Coding CPT Codes Pulmonary/Thoracic - Pulmonary and Thoracic: 43496 Bronchoscopy, reclear airway ([id number]) Additional Codes Date of Service ([facility].SURGERY)
[2025-01-14] MEDS ORDERED: methylPREDNISolone 10 mg/mL (For Ped Dose < 7mg) IV SCH (08:45)
--- NOTE | 2025-01-14 09:30 | Critical Care Progress Note ---
Date of Service January 14, 2025 Assessment & Plan (1) Cardiac arrest: (2) Aspiration into respiratory tract: (3) Acute on chronic heart failure with preserved ejection fraction: (4) Pickwickian syndrome: (5) Pulmonary hypertension: (6) Chronic hypoxic respiratory failure, on home oxygen therapy: (7) Morbid obesity: Plan Impression: 69-year-old female with multiple medical issues including acute on chronic hypoxemic respiratory failure and hypercarbic respiratory failure with noncompliance with noninvasive positive pressure ventilation at home admitted with shortness of breath and fluid overload. She was diuresed and being treated with BiPAP but suffered an aspiration event 01/12/2025 resulting in cardiac arrest and prolonged PEA code. She is now in the ICU intubated and on an epinephrine infusion. 24-hour events: Patient has been weaned off of pressor agents. She is exhibiting some movement but is not purposeful. Transitioned to pressure support ventilation. Chest x-ray this morning demonstrated opacification of the left hemithorax requiring urgent bronchoscopy. See separate procedure note. Recommendations: 1. Neurologic: Prolonged ACLS. Initial imaging unremarkable. The patient has shown some improvement but is still at risk for anoxic encephalopathy. Continue supportive care. Consider repeat imaging in 48 to 72 hours depending on clinical response. Sedation off. Continue Neurontin given risks of withdrawal. 2. Cardiovascular: PEA arrest likely secondary to aspiration event and hypoxemia. Now off epinephrine. Pulmonary hypertensiontry and maintain euvolemic status. 3. Pulmonary: Massive aspiration event. Chest x-ray today showed improved aeration on the right but opacification on the left. Bronchoscopy showed significantly inflamed airways with a mucous plug on the left which was aspirated free. Given the degree of airway inflammation, will place on low-dose of steroids to see if this decreases inflammation. May require repeat bronchoscopy. No indication for stenting pending reassessment of her neurological status. 4. ID: Day #3 Zosyn. White blood cell count remains normal. Cultures are negative to date. Fever curve improving 5. GI: Dietary consultation for initiation of tube feeding. Continue PPI 6. Renal: ICU electrolyte replacement protocol. Mildly hypervolemic. Gentle diuresis as tolerated by blood pressure 7. Endocrine: Glycemic control per protocol. 8. Heme-onc: No current issues. DVT prophylaxis will be continued. Patient is critically ill at this point in time with significant possibility of clinical decline and/or . A total of 42 minutes in critical care time exclusive of procedures was spent evaluation management coordination of care for this patient. No family immediately available Admission and Anticipated Discharge Date Admission Date: January 09, 2025 Subjective Intubated. Moving and opening eyes but not following any commands. Review of Systems Review of Systems: Unobtainable due to endotracheal tube and Unobtainable due to reduced consciousness Physical Exam Constitutional: + morbidly obese Neck: trachea midline, no thyromegaly Respiratory: no labored breathing and no cough Auscultation: + rhonchi; no wheezes Cardiovascular: RRR, no murmur, no edema Gastrointestinal (Abdomen): normal bowel sounds, soft, nontender, no hepatosplenomegaly Musculoskeletal: Extremities: extremities normal to inspection Skin: no rashes, warm and dry Neurologic: Pupils are reactive. Conjugate eye movements. She does withdraw to painful stimulus in the orbits but no withdraw to pain in the upper extremities. She does withdraw on the lower extremities. Oculocephalics are intact. Lymphatic: no cervical lymphadenopathy Results & Data Results & Data Vital Signs (Past 12 Hours) Vital Signs Temp Pulse Resp BP Pulse Ox O2 Del Method FiO2 01/14/25 09:10 Mechanical Vent 01/14/25 08:00 74 01/14/25 07:27 67 24 92 50 01/14/25 06:00 37.7 C H 65 18 138/77 93 Mechanical Vent 50 01/14/25 05:37 73 21 93 40 01/14/25 05:03 37.8 C H 71 20 160/79 H 92 Mechanical Vent 50 01/14/25 04:01 37.9 C H 76 23 168/84 H 95 Mechanical Vent 50 01/14/25 04:00 50 01/14/25 03:00 37.9 C H 67 18 131/76 91 Mechanical Vent 50 01/14/25 02:00 38.0 C H 75 23 168/93 H 94 Mechanical Vent 50 01/14/25 01:09 38.1 C H 73 23 152/91 H 94 Mechanical Vent 50 01/14/25 00:00 38.1 C H 73 23 161/77 H 94 Mechanical Vent 50 01/14/25 00:00 70 01/14/25 00:00 50 01/13/25 23:29 70 18 94 40 01/13/25 23:00 38.1 C H 70 19 156/73 H 94 Mechanical Vent 50 01/13/25 22:00 37.9 C H 72 20 163/81 H 94 Mechanical Vent 50 01/13/25 21:45 70 18 95 40 Critical Care Results & Data Vital Signs (Past 12 Hours) Vital Signs Temp Pulse Resp BP Pulse Ox O2 Del Method FiO2 01/14/25 09:10 Mechanical Vent 01/14/25 08:00 74 01/14/25 07:27 67 24 92 50 01/14/25 06:00 37.7 C H 65 18 138/77 93 Mechanical Vent 50 01/14/25 05:37 73 21 93 40 01/14/25 05:03 37.8 C H 71 20 160/79 H 92 Mechanical Vent 50 01/14/25 04:01 37.9 C H 76 23 168/84 H 95 Mechanical Vent 50 01/14/25 04:00 50 01/14/25 03:00 37.9 C H 67 18 131/76 91 Mechanical Vent 50 01/14/25 02:00 38.0 C H 75 23 168/93 H 94 Mechanical Vent 50 01/14/25 01:09 38.1 C H 73 23 152/91 H 94 Mechanical Vent 50 01/14/25 00:00 38.1 C H 73 23 161/77 H 94 Mechanical Vent 50 01/14/25 00:00 70 01/14/25 00:00 50 01/13/25 23:29 70 18 94 40 01/13/25 23:00 38.1 C H 70 19 156/73 H 94 Mechanical Vent 50 01/13/25 22:00 37.9 C H 72 20 163/81 H 94 Mechanical Vent 50 01/13/25 21:45 70 18 95 40 Lab & Micro Results (Past 24 Hours) RBC 4.54 M/uL (4.20-5.40) 01/14/25 WBC 10.29 K/ul (4.8-10.8) 01/14/25 Hgb 11.4 g/dl (12.0-16.0) L 01/14/25 Hct 37.8 % (37.0-47.0) 01/14/25 MCV 83.3 fL (80.0-100.0) 01/14/25 MCH 25.1 pg (25.0-34.0) 01/14/25 MCHC 30.2 g/dL (32.0-36.0) L 01/14/25 RDW Standard Deviation 50.4 fL (36.4-46.3) H 01/14/25 RDW Coefficient of Variation 16.6 % (11.5-14.5) H 01/14/25 Plt Count 171 K/uL (130-400) 01/14/25 MPV 9.8 fL (9.4-12.4) 01/14/25 Neutrophils (%) (Auto) 86.1 % 01/14/25 Lymphocytes (%) (Auto) 4.7 % 01/14/25 Monocytes # (Auto) 0.77 K/uL (0.11-0.59) H 01/14/25 Eosinophils # (Auto) 0.07 K/uL (0.00-0.50) 01/14/25 Immature Granulocyte % (Auto) 0.4 % 01/14/25 Neutrophils # (Auto) 8.87 K/uL (1.40-6.50) H 01/14/25 Lymphocytes # (Auto) 0.48 K/uL (1.20-3.40) L 01/14/25 Monocytes # (Auto) 0.77 K/uL (0.11-0.59) H 01/14/25 Eosinophils # (Auto) 0.07 K/uL (0.00-0.50) 01/14/25 Basophils # (Auto) 0.06 K/uL (0.00-0.20) 01/14/25 Immature Granulocyte # (Auto) 0.04 K/uL (0.01-0.20) 5 Na 136 mmol/L (136-145) 01/14/25 K 4.3 mmol/L (3.5-5.1) 01/14/25 Cl 99 mmol/L (98-107) 01/14/25 CO2 31 mmol/L (21-32) 01/14/25 Anion Gap 6 (3-11) 01/14/25 BUN 49 mg/dl (6-23) H 01/14/25 Creatinine 1.67 mg/dl (0.6-1.2) H 01/14/25 BUN/Creatinine Ratio 29.3 (10-20) H 01/14/25 Glu 161 mg/dl (70-99(Fasting)) H 01/14/25 Ca 8.5 mg/dl (8.6-10.3) L 01/14/25 Phosphorus Level 3.2 mg/dl (2.5-4.9) 01/14/25 Mg 2.3 mg/dl (1.7-2.4) 01/14/25 05:40 Calcium Level 8.5 mg/dl (8.6-10.3) L 01/14/25 05:40 Mauro Test Pass 01/14/25 05:16 Microbiology 01/13/25 Unknown Gram Stain - Final Bronch Wash,Right Lower Lobe 01/12/25 11:00 Urine Culture - Final Urine,Clean Catch More than three types of organisms present, all high counts. Repeat collection recommended. No further identifications or sensitivities to follow. Diagnostic Findings (Past 24 Hours) Chest X-Ray 01/13/25 07:12 EXAM: XR chest 1V portable CLINICAL HISTORY: resp failure. TECHNIQUE: An X-ray image of the chest is obtained in AP projection. COMPARISON: 01/09/2025 CR. FINDINGS: Lines and tubes: ETT with tip 3.1cm from the suki NGT with tip just below the diaphragm, need for more insertion. Left CVL with tip in the cavoatrial junction. Pulmonary Parenchyma: Interval demonstration of diffuse right lung patchy opacities. Interval demonstration of a mild left pleural effusion Heart and Mediastinum: Heart size and shape are normal. No mediastinal widening or masses. No hilar or mediastinal lymphadenopathy. Bony Thorax: Bony thorax appears intact without fractures or deformities. Soft Tissues: Soft tissues overlying the chest wall are unremarkable. IMPRESSION: 1. NGT with tip just below the diaphragm, need for more insertion. 2. ETT and left CVL in proper position. 3. Interval demonstration of diffuse right lung patchy opacities, could be due to edema/infectious process. please correlate clinically. 4. Interval increase of a mild left pleural effusion. Electronically signed by Jacky Villasenor 01-13-2025 08:[address] 01/13/25 09:59 CT head/brain wo con CLINICAL HISTORY: 69 years-old Female with s/p arrest. Acutely altered mental status with cardiac arrest TECHNIQUE: Multiple axial CT images of the head were obtained without contrast. A dose lowering technique was utilized adhering to the principles of ALARA. CT DOSE: 875.56 mGy.cm COMPARISON: None. FINDINGS: No acute intracranial hemorrhage, midline shift, intracranial mass, hydrocephalus, territorial ischemia or abnormal extra-axial collection. Involutional changes with white matter hypodensities suggestive of chronic microvascular ischemic disease. The calvarium is intact. Polypoid mucosal thickening of the maxillary sinuses. Moderate mucosal thickening of the ethmoid air cells with secretions noted within the airway. Partially imaged nasogastric tube. Trace mastoid effusions. IMPRESSION: No acute intracranial abnormality identified. ACT 112: Negative or not required by law. The above report was generated using voice recognition software. It may contain grammatical, syntax or spelling errors. Electronically signed by: Tee Muñoz M.D. 01/13/2025 11:09 AM Brain MRI 01/13/25 12:05 MR brain wo/w con HISTORY: 69 years-old Female s/p arrest acutely altered mental status with recent cardiac arrest COMPARISON: Head CT of same day TECHNIQUE: Multiplanar multisequence MRI of the brain was obtained with and without IV contrast. FINDINGS: No restricted diffusion to suggest an acute or subacute infarct. The midline structures appear unremarkable. Degenerative changes of the cervical spine. There is no acute intracranial hemorrhage, midline shift, abnormal extra-axial collection, hydrocephalus or intra-axial mass. There are a few patchy subcentimeter foci of blooming artifact noted within the cerebral hemispheres which may represent small foci of hemosiderin. Involutional changes with moderate T2/FLAIR hyperintense foci throughout the white matter. No abnormal intracranial enhancement. Cerebral venous sinuses and major arterial flow voids appear patent. Moderate mucosal thickening of the paranasal sinuses with polypoid mucosal thickening of the maxillary sinuses. Moderate-sized mastoid effusions. IMPRESSION: 1. No acute intracranial abnormality. No acute or subacute infarct. 2. No abnormal enhancement. 3. Involutional changes with moderate T2/FLAIR hyperintense foci throughout the white matter likely representing chronic microvascular ischemic disease. 4. Paranasal sinus disease with mastoid effusions. ACT 112: Negative or not required by law. The above report was generated using voice recognition software. It may contain grammatical, syntax or spelling errors. Electronically signed by: Tee Muñoz M.D. 01/13/2025 3:31 PM Chest X-Ray 01/14/25 07:00 EXAM: XR chest 1V portable CLINICAL HISTORY: Resp failure TECHNIQUE: An X-ray image of the chest is obtained in AP projection. COMPARISON: 01/13/2025 CR. FINDINGS: ETT's tip is about 3 cm above the suki. Left-sided PICC line with its tip at the superior cavoatrial junction. NGT is seen coursing below the left hemidiaphragm. However it is holes are seen within the esophagus further downward pushing is needed for adequate position Pulmonary Parenchyma: Interval worsening of the left lung basilar opacity/effusion, mounting to near total opacification of the left hemithorax without evident mediastinal shifting. Interval improving right lung airspace opacities. Mild right-sided vascular congestion. No evident right-sided pleural effusion. Heart and Mediastinum: Heart size can't be commented upon in the current radiograph. Bony Thorax: No acute osseous abnormality. Soft Tissues: Soft tissues overlying the chest wall are unremarkable. IMPRESSION: 1. Interval worsening of the left lung basilar opacity/effusion with now near total opacification of the left hemithorax without evident mediastinal shifting. 2. Interval improving right lung airspace opacities. 3. NGT is seen coursing below the left hemidiaphragm. However it is holes are seen within the esophagus further downward pushing is needed for adequate position. Stable 4. Mild right-sided vascular congestion. 5. ETT's tip is about 3 cm above the suki. 6. Left-sided PICC line with its tip at the superior cavoatrial junction. Electronically signed by Jacky Villasenor 01-14-2025 07:50 AM I & O Totals 24 Hours 01/13/25 01/14/25 01/15/25 06:59 06:59 06:59 Intake Total 2655.271 / 2655.271 500.00 / 500.00 100 / 100 Output Total 1710 / 1710 1974 225 / 225 Balance 945.271 / 945.271 -1475 / -1475.00 -125 / -125 Cumulative 01/08/25 21:36 thru 01/14/25 08:00 Intake Total 3865.521 Output Total 4610 Balance -744.479 RT Ventilator Mngmt (Last Documented) Ventilator Ordered Settings Ventilator Support Mode CPAP 01/14/25 07:27 Respiratory Rate 24 01/14/25 07:27 Ventilator Tidal Volume 365 01/14/25 05:37 Setting Minute Ventilation 6.2 01/14/25 07:27 Ventilator Positive Pressure 10 01/14/25 07:27 Support Setting Positive End Expiratory 7 01/14/25 07:27 Pressure Fraction of Inspired Oxygen 50 01/14/25 07:27 Ventilator - PT Measurements Respiratory Rate 24 Exhaled Tidal Volume 257 Minute Ventilation 6.2 Peak Inspiratory Airway 20 Pressure Plateau Pressure 25 Respiratory Cycle Inspiratory: 1:2.3 Expiratory Ratio Inspiratory Phase Time 0.69 End-Tidal CO2 36 Static Lung Compliance 20.28 Dynamic Lung Compliance 19.77 Normal Static Lung Compliance 45.00 Patient Measurements Comment Changes made according to ABG results. Sury Webb PA-C CCM aware Coding Level of Care Code 04972 SUB INP/OBS CARE 3/50MIN Diagnoses Cardiac arrest I46.9 Aspiration into respiratory tract T17.908A Acute on chronic heart failure with preserved ejection fraction I50.33 Pickwickian syndrome E66.2 Pulmonary hypertension I27.20 Chronic hypoxic respiratory failure, on home oxygen therapy J96.11; Z99.81 Morbid obesity E66.01
[2025-01-14] MEDS: methylPREDNISolone 40 MG in SYRINGE 0 ML IV SCH (10:02)
[2025-01-14] MEDS: TUBE FEEDING WATER FLUSH OG SCH (12:24)
--- NOTE | 2025-01-14 13:41 | Hospitalist Progress Note ---
Date of Service January 14, 2025 Assessment & Plan (1) Acute and chronic respiratory failure with hypercapnia: Plan: Cardiopulmonary arrest secondary to possible aspiration -remains intubated -weaned off pressors -MRI head unrevealing for anoxic brain injury; however, exam quite concerning for anoxic injury vs. severe metabolic encephalopathy vs. less likely subclinical seizures -EEG pending -check B12 to finish metabolic workup -vent management by Steam Plant Operator, appreciate the input -goals and values explored initially by ICU team, will reach out to son tomorrow to further discuss goals and values; prognosis guarded at this time Acute on chronic hypoxemic, hypercapnic respiratory failure Secondary to HFpEF secondary to missed home medications, uncontrolled BP Underlying pulmonary hypertension hx chronic respiratory failure secondary to COPD/RLD on home O2 OHS on CPAP -maintained on Lasix IV -Color Adviser and Mechanical Artist on board Hypertensive Urgency -Carvedilol 3.125 mg BID resumed -Amlodipine 2.5 mg daily also added--> BP on the lower side, discontinued R lower leg wounds -no signs of infection -continue daily wound care -scheduler conveyor consulted Abnormal CT scan, chest: -per bailiff: -Radiology noted a mild left basal pleural thickening and mild dependent reticular and ill-defined groundglass opacities in the basal segments of the left lower lobe. I suspect these are likely related to atelectasis and small chronic effusion. Recommend a follow-up CT chest in about 3 months. Troponin elevation secondary to above hyperlipidemia, on statin Rx DM2 insulin requiring, suboptimal control as of recent hemoglobin A1c of 8.25 September 2024 CRI, creatinine mildly increased, monitor closely anxiety/mood disorder, at baseline past tobacco abuse I spent a total of 45 minutes in direct patient care, including [id number] time with the patient and/or family, reviewing medical records, ordering and reviewing diagnostic tests, and coordinating care with other healthcare providers. This time includes: history taking, physical examination, medical decision making, counseling, ECG interpretation, imaging interpretation, lab interpretation, orders, and education, excluding time spent in the performance of separately billed services. Admission and Anticipated Discharge Date Admission Date: January 09, 2025 Subjective Patient seen and examined at bedside. patient unresponsive at this time, is looking around with her eyes and withdraws to stimuli. Does not track fingers or respond to any commands Review of Systems Review of Systems: -unable to answer due to mental status Physical Exam Physical Exam: Gen: A&O 0 NAD HEENT: NCAT, EOMI, not icteric. External ears normal. No rhinorrhea. Moist mucous membranes. Neck: Supple, full range of motion, no observable masses, No meningeal sign. Lungs: rhonchi noted bilaterally, worse on right CV: RRR, no edema. Abdomen: Soft, nondistended, No rebound tenderness. MSK: No joint swelling, no redness. Skin: No rashes, petechiae, lesions. Normal color per patient. Neuro: looking around room, withdraws to stimuli, however does not track or follow commands Results & Data Results & Data Vital Signs (Past 12 Hours) Vital Signs Temp Pulse Resp BP Pulse Ox O2 Del Method FiO2 01/14/25 10:32 60 19 95 50 01/14/25 09:10 Mechanical Vent 01/14/25 09:01 162/130 H 01/14/25 09:00 37.5 C 75 27 H 95 Mechanical Vent 01/14/25 08:00 136/95 01/14/25 08:00 37.6 C H 64 22 94 Mechanical Vent 01/14/25 08:00 74 01/14/25 07:27 67 24 92 50 01/14/25 07:00 37.6 C H 70 20 94 Mechanical Vent 01/14/25 07:00 166/86 H 01/14/25 06:00 138/77 01/14/25 06:00 37.7 C H 65 18 138/77 93 Mechanical Vent 50 01/14/25 05:37 73 21 93 40 01/14/25 05:03 37.8 C H 71 20 160/79 H 92 Mechanical Vent 50 01/14/25 04:01 37.9 C H 76 23 168/84 H 95 Mechanical Vent 50 01/14/25 04:00 50 01/14/25 03:00 37.9 C H 67 18 131/76 91 Mechanical Vent 50 01/14/25 02:00 38.0 C H 75 23 168/93 H 94 Mechanical Vent 50 Laboratory Results -personally reviewed, blood gas with mild respiratory alkalosis with mildly low oxygen Diagnostic Findings Chest X-Ray 01/14/25 07:00 EXAM: XR chest 1V portable CLINICAL HISTORY: Resp failure TECHNIQUE: An X-ray image of the chest is obtained in AP projection. COMPARISON: 01/13/2025 CR. FINDINGS: ETT's tip is about 3 cm above the suki. Left-sided PICC line with its tip at the superior cavoatrial junction. NGT is seen coursing below the left hemidiaphragm. However it is holes are seen within the esophagus further downward pushing is needed for adequate position Pulmonary Parenchyma: Interval worsening of the left lung basilar opacity/effusion, mounting to near total opacification of the left hemithorax without evident mediastinal shifting. Interval improving right lung airspace opacities. Mild right-sided vascular congestion. No evident right-sided pleural effusion. Heart and Mediastinum: Heart size can't be commented upon in the current radiograph. Bony Thorax: No acute osseous abnormality. Soft Tissues: Soft tissues overlying the chest wall are unremarkable. IMPRESSION: 1. Interval worsening of the left lung basilar opacity/effusion with now near total opacification of the left hemithorax without evident mediastinal shifting. 2. Interval improving right lung airspace opacities. 3. NGT is seen coursing below the left hemidiaphragm. However it is holes are seen within the esophagus further downward pushing is needed for adequate position. Stable 4. Mild right-sided vascular congestion. 5. ETT's tip is about 3 cm above the suki. 6. Left-sided PICC line with its tip at the superior cavoatrial junction. Electronically signed by Jacky Villasenor 01-14-2025 07:50 AM -personally reviewed, chest xray with worsening of left lung opacity, some vascular congestion Medications Administered Acetaminophen (Acetaminophen 325 Mg Tab) 650 mg PO QID PRN PRN Reason: pain/fever Stop: 02/08/25 04:44 Last Admin: 01/11/25 21:17 Dose: 650 mg Documented By: electric needle specialist: 01/10/25 23:34 Dose: 650 mg Documented By: Admin: 01/10/25 09:14 Dose: 650 mg Documented By: Admin: 01/09/25 22:13 Dose: 650 mg Documented By: VICKIE Cyanocobalamin (Cyanocobalamin (B-12) 500 Mcg Tablet) 1,000 mcg PO DAILY ALBERTO Stop: 02/08/25 08:59 Last Admin: 01/14/25 07:46 Dose: 1,000 mcg Documented By: Admin: 01/13/25 07:50 Dose: 1,000 mcg Documented By: Admin: 01/12/25 10:13 Dose: Not Given Documented By: Admin: 01/11/25 08:24 Dose: 1,000 mcg Documented By: Admin: 01/10/25 08:47 Dose: 1,000 mcg Documented By: Admin: 01/09/25 09:44 Dose: 1,000 mcg Documented By: COLLIN Heparin Sodium (Porcine) (Heparin Sod 5,000 Unit/0.5 Ml Vial) 5,000 units SQ Q8H ALBERTO Stop: 02/08/25 05:59 Last Admin: 01/14/25 05:49 Dose: 5,000 units Documented By: Admin: 01/13/25 21:21 Dose: 5,000 units Documented By: Admin: 01/13/25 13:50 Dose: 5,000 units Documented By: Admin: 01/13/25 05:45 Dose: 5,000 units Documented By: Admin: 01/12/25 21:48 Dose: 5,000 units Documented By: Admin: 01/12/25 14:24 Dose: 5,000 units Documented By: Admin: 01/12/25 05:44 Dose: 5,000 units Documented By: electric needle specialist: 01/11/25 21:19 Dose: 5,000 units Documented By: electric needle specialist: 01/11/25 14:08 Dose: 5,000 units Documented By: ANAIS(2) Admin: 01/11/25 06:23 Dose: 5,000 units Documented By: Admin: 01/10/25 21:24 Dose: 5,000 units Documented By: Admin: 01/10/25 13:18 Dose: 5,000 units Documented By: Admin: 01/10/25 06:17 Dose: 5,000 units Documented By: Admin: 01/09/25 22:14 Dose: 5,000 units Documented By: Admin: 01/09/25 15:14 Dose: 5,000 units Documented By: Admin: 01/09/25 06:21 Dose: 5,000 units Documented By: MIKE Promethazine HCl (Phenergan) 6.25 mg in 50.25 mls @ 201 mls/hr IV Q6H PRN PRN Reason: Nausea And Vomiting Stop: 02/08/25 04:44 Last Infusion: 01/10/25 09:50 Dose: Infused Documented By: Admin: 01/10/25 09:20 Dose: 201 mls/hr Documented By: OO Propofol (Diprivan) 1,000 mg in 100 mls @ 21.33 mls/hr IV .Q4H42M [facility]; Protocol Stop: 01/15/25 13:44 Last Admin: 01/13/25 15:28 Dose: Not Given Documented By: Admin: 01/13/25 11:43 Dose: Not Given Documented By: Titration: 01/13/25 11:25 Dose: Infused Documented By: Titration: 01/13/25 07:14 Dose: 30 mcg/kg/min, 21.3 mls/hr Documented By: LAF Co-signed By: AMS Admin: 01/13/25 06:16 Dose: 30 mcg/kg/min, 21.3 mls/hr Documented By: AMS Co-signed By: SG Titration: 01/13/25 06:16 Dose: Infused Documented By: AMS Co-signed By: SG Admin: 01/13/25 06:13 Dose: Not Given Documented By: Admin: 01/13/25 06:13 Dose: Not Given Documented By: Titration: 01/13/25 06:06 Dose: 30 mcg/kg/min, 21.3 mls/hr Documented By: Admin: 01/13/25 02:41 Dose: 35 mcg/kg/min, 24.9 mls/hr Documented By: AMS Co-signed By: SG Titration: 01/13/25 02:41 Dose: Infused Documented By: AMS Co-signed By: SG Admin: 01/12/25 22:54 Dose: Not Given Documented By: Titration: 01/12/25 22:51 Dose: Infused Documented By: AMS Co-signed By: SG Admin: 01/12/25 22:51 Dose: 35 mcg/kg/min, 24.9 mls/hr Documented By: AMS Co-signed By: SG Titration: 01/12/25 19:03 Dose: 35 mcg/kg/min, 24.9 mls/hr Documented By: LAF Co-signed By: AMS Admin: 01/12/25 18:26 Dose: 35 mcg/kg/min, 24.9 mls/hr Documented By: LAF Co-signed By: EVELIN Titration: 01/12/25 18:26 Dose: Infused Documented By: HANNA Co-signed By: EVELIN Titration: 01/12/25 16:05 Dose: 30 mcg/kg/min, 21.3 mls/hr Documented By: Titration: 01/12/25 15:15 Dose: 25 mcg/kg/min, 17.8 mls/hr Documented By: Admin: 01/12/25 14:10 Dose: 20 mcg/kg/min, 14.2 mls/hr Documented By: HANNA Co-signed By: EVELIN Piperacillin Sod/Tazobactam Sod (Zosyn) 4.5 gm in 100 mls @ 25 mls/hr IV Q8H ALBERTO; Protocol Stop: 01/16/25 02:59 Last Admin: 01/14/25 10:06 Dose: 25 mls/hr Documented By: Infusion: 01/14/25 07:46 Dose: Infused Documented By: Admin: 01/14/25 03:40 Dose: 25 mls/hr Documented By: Infusion: 01/13/25 23:40 Dose: Infused Documented By: Admin: 01/13/25 19:40 Dose: 25 mls/hr Documented By: Infusion: 01/13/25 18:06 Dose: Infused Documented By: Admin: 01/13/25 11:46 Dose: 25 mls/hr Documented By: Infusion: 01/13/25 06:55 Dose: Infused Documented By: Admin: 01/13/25 02:45 Dose: 25 mls/hr Documented By: AMS Methylprednisolone 40 mg/ (Syringe) 0.64 mls @ 1.5 mls/min IV Q8H ALBERTO Stop: 01/15/25 00:46 Last Admin: 01/14/25 10:02 Dose: 1.5 mls/min Documented By: HANNA Insulin Aspart (Insulin Aspart Per Unit Charge) 0 units SC Q6 ALBERTO Stop: 02/12/25 05:59 Last Admin: 01/14/25 12:24 Dose: 3 units Documented By: HANNA Co-signed By: [facility] Admin: 01/14/25 05:49 Dose: 1 units Documented By: BIMAL Co-signed By: RUDDY Admin: 01/14/25 00:55 Dose: 1 units Documented By: BIMAL Co-signed By: RUDDY Admin: 01/13/25 18:12 Dose: 2 units Documented By: HANNA Co-signed By: EVELIN Admin: 01/13/25 11:53 Dose: 2 units Documented By: HANNA Co-signed By: EVELIN Admin: 01/13/25 05:47 Dose: 1 units Documented By: BIMAL Co-signed By: RUDDY Insulin Glargine (Lantus Per Unit Charge) 5 units SQ HS ALBERTO Stop: 02/08/25 20:59 Last Admin: 01/13/25 20:45 Dose: 5 units Documented By: AMS Co-signed By: RUDDY Admin: 01/12/25 21:47 Dose: 5 units Documented By: BIMAL Co-signed By: RUDDY Admin: 01/11/25 21:17 Dose: 5 units Documented By: JOHNIE Co-signed By: LINDA Admin: 01/10/25 21:25 Dose: 5 units Documented By: VICKIE Co-signed By: TOMMY Admin: 01/09/25 22:13 Dose: 5 units Documented By: VICKIE Co-signed By: CR Miscellaneous (Icu Electrolyte Replacement Protocol) 1 each N/A BID@06,18 ALBERTO; Protocol Stop: 01/19/25 17:59 Last Admin: 01/14/25 06:16 Dose: Not Given Documented By: Admin: 01/13/25 20:15 Dose: Not Given Documented By: Admin: 01/13/25 05:23 Dose: 1 each Documented By: Admin: 01/12/25 22:10 Dose: Not Given Documented By: BIMAL Sterile Water (Tube Feeding Water Flush) 30 ml OG Q4H ALBERTO Stop: 02/13/25 11:44 Last Admin: 01/14/25 12:24 Dose: Not Given Documented By: HANNA Vitamin D (Cholecalciferol 25 Mcg (1000 Units) Tab) 25 mcg PO DAILY ALBERTO Stop: 02/08/25 08:59 Last Admin: 01/14/25 07:45 Dose: 25 mcg Documented By: Admin: 01/13/25 07:50 Dose: 25 mcg Documented By: Admin: 01/12/25 10:13 Dose: Not Given Documented By: Admin: 01/11/25 08:24 Dose: 25 mcg Documented By: Admin: 01/10/25 08:48 Dose: 25 mcg Documented By: Admin: 01/09/25 09:44 Dose: 25 mcg Documented By: COLLIN
[2025-01-14] MEDS: PEPTAMEN INTENSE VHP 1.0 CAL 1,000 ML BAG OG SCH (18:10)
[2025-01-14] MEDS ORDERED: STAT IV Infusion **Titration per Protocol STA (19:21)
[2025-01-14] MEDS: dexMEDEtomidine 200 MCG/50 ML BAG IV SCH (19:55)
[2025-01-14] MEDS: GABAPENTIN 100 MG CAP PO SCH (20:08)
[2025-01-15] MEDS: hydrALAZINE HCL 20 MG/ML VIAL IV STA (00:15)
[2025-01-15] MEDS: INSULIN ASPART PER UNIT CHARGE SC SCH (00:22)
[2025-01-15 04:55] LABS: iSTAT Allen Test Pass; iSTAT Art Bld Gas pCO2 Correct 40 mmHg (35-46); iSTAT Art Bld Gas pH Corrected 7.474 (7.35-7.45); iSTAT Arterial Blood Gas HCO3 30 meg/L (19-24); iSTAT Arterial Blood Gas pCO2 41 mmHg (35-46); iSTAT Arterial Blood Gas pH 7.47 (7.35-7.45); iSTAT Arterial Blood Gas pO2 74 mmHg (80-95); iSTAT Arterial Blood Gas pO2 C 71; iSTAT Carbon Dioxide 31 mmol/L (24-31); iSTAT FiO2 50 %; iSTAT Hematocrit 37 % (37-47); iSTAT Hemoglobin 12.6 g/dl (12.0-16.0); iSTAT Potassium 4.4 mmol/L (3.3-5.0); iSTAT Sample Type Arterial; iSTAT Site L Radial; iSTAT Sodium 136 mmol/L (135-144); iSTAT SpO2 94
[2025-01-15 05:14] LABS: Hematocrit (blood only) 38.1 % (37.0-47.0); Hemoglobin 11.6 g/dl (12.0-16.0); Mean Corpuscular Hemoglobin 25.7 pg (25.0-34.0); Mean Corpuscular Hgb Conc 30.4 g/dL (32.0-36.0); Mean Corpuscular Volume 84.5 fL (80.0-100.0); Mean Platelet Volume 10.7 fL (9.4-12.4); Platelet Count 155 K/uL (130-400); RDW Coefficient of Variation 16.3 % (11.5-14.5); RDW Standard Deviation 50.4 fL (36.4-46.3); Red Blood Count 4.51 M/uL (4.20-5.40)
[2025-01-15 05:30] LABS: BUN Creatinine Ratio 34.2 (10-20); Calcium 8.5 mg/dl (8.6-10.3); Magnesium 2.3 mg/dl (1.7-2.4); Phosphorus 3.7 mg/dl (2.5-4.9); Potassium 4.3 mmol/L (3.5-5.1)
[2025-01-15 06:17] LABS: Immature Granulocytes # (auto) 0.03 K/uL (0.01-0.20); Immature Granulocytes % (auto) 0.5 %; Lymphocytes # (auto) 0.24 K/uL (1.20-3.40); Lymphocytes % (auto) 4.2 %; Monocytes # (auto) 0.17 K/uL (0.11-0.59); Neutrophils # (auto) 5.26 K/uL (1.40-6.50); Neutrophils % (auto) 92.3 %; RBC Morphology Unremarkable
[2025-01-15] MEDS: hydrALAZINE HCL 20 MG/ML VIAL IV ONE (07:27)
--- NOTE | 2025-01-15 07:31 | XRay Report ---
EXAM: XR chest 1V portable CLINICAL HISTORY: Resp failure. TECHNIQUE: An X-ray image of the chest is obtained in AP portable projection. COMPARISON: 01/14/2025 FINDINGS: ET tube seen 1.8cm from the suki. Unchanged, NG tube with tip reaching left infradiaphragmatic, in place. Unchanged left central venous catheter, tip in SVC Pulmonary Parenchyma: Partial resolution of the left lung opacification, with visualized left upper lung zone lung parenchyma Still seen opacified left middle and lower lung zones Right lung diffuse reticular opacities, prominent bronchovascular markings and frederic (unchanged) Obscured left costophrenic angle No evidence of right pleural effusion or pleural thickening. Heart and Mediastinum: Cardiomegaly Bony Thorax: Bony thorax appears intact without fractures or deformities. Soft Tissues: Soft tissues overlying the chest wall are unremarkable. IMPRESSION: 1. ET tube seen 1.8cm from suki. Clinical correlation is advised. 2. Unchanged, NG tube with tip reaching left infradiaphragmatic, inplace 3. Unchanged left central venous catheter, tip in SVC 4. Partial resolution of the left lung opacification, with visualized left upper lung zone lung parenchyma 5. Still seen opacified left middle and lower lung zones 6. Obscured left costophrenic angle (unchanged) Electronically signed by Jacky Villasenor 01-15-2025 07:30 AM
[2025-01-15] MEDS: MULTI VIT W/MINERALS LIQUID 15 ML UDC NG SCH (09:23)
--- NOTE | 2025-01-15 09:27 | Critical Care Progress Note ---
Date of Service January 15, 2025 Assessment & Plan (1) Cardiac arrest: (2) Aspiration into respiratory tract: (3) Acute on chronic heart failure with preserved ejection fraction: (4) Pickwickian syndrome: (5) Pulmonary hypertension: (6) Chronic hypoxic respiratory failure, on home oxygen therapy: (7) Morbid obesity: Plan Impression: 69-year-old female with multiple medical issues including acute on chronic hypoxemic respiratory failure and hypercarbic respiratory failure with noncompliance with noninvasive positive pressure ventilation at home admitted with shortness of breath and fluid overload. She was diuresed and being treated with BiPAP but suffered an aspiration event 01/12/2025 resulting in cardiac arrest and prolonged PEA code. She is now in the ICU intubated and on an epinephrine infusion. 24-hour events: Bronchoscopy completed yesterday. Patient's hemodynamically stable. She had increased purposeful movement grabbing for the tube yesterday requiring initiation of Precedex. This morning she is following commands on pressure support ventilation. Recommendations: 1. Neurologic: Prolonged ACLS. Initial imaging unremarkable. Patient is had some neurological improvement and passed an SBT this morning was able to follow commands. Will plan on extubation. Will continue to reassess neurological status and provide supportive care. Will need aggressive PT OT and rehab 2. Cardiovascular: PEA arrest likely secondary to aspiration event and hypoxemia. Pulmonary hypertension: Diuretics can be reinitiated 3. Pulmonary: Massive aspiration event. Chest x-ray today stable. Completed a few doses of steroids for airway inflammation. These do not need to be continued long-term. Continue pulmonary toilet. She has hypercarbic and hypoxemic respiratory failure. Continue noninvasive positive pressure ventilation definitely at night and as needed during the day, underlying obesity hypoventilation syndrome. Needs to be compliant with positive airway pressure at night moving forward. 4. ID: Day #4 Zosyn. White blood cell count remains normal. Cultures are negative to date. Complete 5 days empiric therapy then discontinue 5. GI: N.p.o. pending swallow evaluation 6. Renal: Kidney function improving. Continue ICU electrolyte replacement protocol. Diuresis as tolerated 7. Endocrine: Glycemic control per protocol. 8. Heme-onc: No current issues. DVT prophylaxis will be continued. Family updated by primary admitting service. Keep in ICU pending patient's respiratory status Admission and Anticipated Discharge Date Admission Date: January 09, 2025 Subjective Patient seen and examined. EMR reviewed. She is sedated on Precedex and intubated on mechanical ventilator. She is able to follow commands and lift her head up with a pillow as well as wiggle her toes and show me her thumbs and provide fire officer on command. She has been hemodynamically stable overnight Review of Systems Review of Systems: All systems reviewed & are unremarkable except as noted in Subjective Physical Exam Constitutional: + morbidly obese and + disheveled Neck: trachea midline, no thyromegaly Respiratory: no labored breathing and no cough Auscultation: + rhonchi; no wheezes Cardiovascular: RRR, no murmur, no edema Gastrointestinal (Abdomen): normal bowel sounds, soft, nontender, no hepatosplenomegaly Musculoskeletal: Extremities: extremities normal to inspection Skin: no rashes, warm and dry Lymphatic: no cervical lymphadenopathy Results & Data Results & Data Vital Signs (Past 12 Hours) Vital Signs Temp Pulse Resp BP Pulse Ox O2 Del Method FiO2 01/15/25 09:01 36.5 C 56 L 22 145/91 H 92 BiPAP 01/15/25 08:00 37.0 C 52 L 22 160/78 H 93 01/15/25 08:00 59 L 01/15/25 07:30 Mechanical Vent 50 01/15/25 07:28 52 L 17 95 50 01/15/25 07:00 37.0 C 52 L 18 188/89 H 94 01/15/25 06:04 170/86 H 01/15/25 05:48 37.0 C 53 L 20 95 01/15/25 05:30 172/92 H 01/15/25 05:02 16 01/15/25 04:45 166/92 H 01/15/25 04:00 36.5 C 65 23 179/105 H 94 Mechanical Vent 50 01/15/25 04:00 50 01/15/25 03:08 18 50 01/15/25 03:00 37.3 C 54 L 18 166/81 H 93 Mechanical Vent 50 01/15/25 02:00 37.3 C 56 L 18 165/82 H 93 Mechanical Vent 50 01/15/25 01:00 37.2 C 64 28 H 167/95 H 94 Mechanical Vent 50 01/15/25 00:37 158/75 H 01/15/25 00:03 37.2 C 56 L 21 195/98 H 95 Mechanical Vent 50 01/15/25 00:00 58 L 01/15/25 00:00 50 01/14/25 23:41 18 50 01/14/25 23:00 36.7 C 57 L 20 169/103 H 96 Mechanical Vent 50 01/14/25 22:19 176/88 H 01/14/25 22:12 37.1 C 61 20 182/98 H 97 Mechanical Vent 50 01/14/25 22:01 187/128 H Critical Care Results & Data Vital Signs (Past 12 Hours) Vital Signs Temp Pulse Resp BP Pulse Ox O2 Del Method FiO2 01/15/25 09:01 36.5 C 56 L 22 145/91 H 92 BiPAP 01/15/25 08:00 37.0 C 52 L 22 160/78 H 93 01/15/25 08:00 59 L 01/15/25 07:30 Mechanical Vent 50 01/15/25 07:28 52 L 17 95 50 01/15/25 07:00 37.0 C 52 L 18 188/89 H 94 01/15/25 06:04 170/86 H 01/15/25 05:48 37.0 C 53 L 20 95 01/15/25 05:30 172/92 H 01/15/25 05:02 16 01/15/25 04:45 166/92 H 01/15/25 04:00 36.5 C 65 23 179/105 H 94 Mechanical Vent 50 01/15/25 04:00 50 01/15/25 03:08 18 50 01/15/25 03:00 37.3 C 54 L 18 166/81 H 93 Mechanical Vent 50 01/15/25 02:00 37.3 C 56 L 18 165/82 H 93 Mechanical Vent 50 01/15/25 01:00 37.2 C 64 28 H 167/95 H 94 Mechanical Vent 50 01/15/25 00:37 158/75 H 01/15/25 00:03 37.2 C 56 L 21 195/98 H 95 Mechanical Vent 50 01/15/25 00:00 58 L 01/15/25 00:00 50 01/14/25 23:41 18 50 01/14/25 23:00 36.7 C 57 L 20 169/103 H 96 Mechanical Vent 50 01/14/25 22:19 176/88 H 04/25 22:12 37.1 C 61 20 182/98 H 97 Mechanical Vent 50 01/14/25 22:01 187/128 H Lab & Micro Results (Past 24 Hours) RBC 4.51 M/uL (4.20-5.40) 01/15/25 WBC 5.70 K/ul (4.8-10.8) 01/15/25 Hgb 11.6 g/dl (12.0-16.0) L 01/15/25 Hct 38.1 % (37.0-47.0) 01/15/25 MCV 84.5 fL (80.0-100.0) 01/15/25 MCH 25.7 pg (25.0-34.0) 01/15/25 MCHC 30.4 g/dL (32.0-36.0) L 01/15/25 RDW Standard Deviation 50.4 fL (36.4-46.3) H 01/15/25 RDW Coefficient of Variation 16.3 % (11.5-14.5) H 01/15/25 Plt Count 155 K/uL (130-400) 01/15/25 MPV 10.7 fL (9.4-12.4) 01/15/25 Neutrophils (%) (Auto) 92.3 % 01/15/25 Lymphocytes (%) (Auto) 4.2 % 01/15/25 Monocytes # (Auto) 0.17 K/uL (0.11-0.59) 01/15/25 Eosinophils # (Auto) 0.00 K/uL (0.00-0.50) 01/15/25 Immature Granulocyte % (Auto) 0.5 % 01/15/25 Neutrophils # (Auto) 5.26 K/uL (1.40-6.50) 01/15/25 Lymphocytes # (Auto) 0.24 K/uL (1.20-3.40) L 01/15/25 Monocytes # (Auto) 0.17 K/uL (0.11-0.59) 01/15/25 Eosinophils # (Auto) 0.00 K/uL (0.00-0.50) 01/15/25 Basophils # (Auto) 0.00 K/uL (0.00-0.20) 01/15/25 Immature Granulocyte # (Auto) 0.03 K/uL (0.01-0.20) 5 Red Blood Cell Morphology Unremarkable 01/15/25 Na 138 mmol/L (136-145) 01/15/25 K 4.3 mmol/L (3.5-5.1) 01/15/25 Cl 100 mmol/L (98-107) 01/15/25 CO2 30 mmol/L (21-32) 01/15/25 Anion Gap 8 (3-11) 01/15/25 BUN 51 mg/dl (6-23) H 01/15/25 Creatinine 1.49 mg/dl (0.6-1.2) H 01/15/25 BUN/Creatinine Ratio 34.2 (10-20) H 01/15/25 Glu 225 mg/dl (70-99(Fasting)) H 01/15/25 Ca 8.5 mg/dl (8.6-10.3) L 01/15/25 Phosphorus Level 3.7 mg/dl (2.5-4.9) 01/15/25 Mg 2.3 mg/dl (1.7-2.4) 01/15/25 04:27 Calcium Level 8.5 mg/dl (8.6-10.3) L 01/15/25 04:27 Mauro Test NA 01/15/25 11:36 Microbiology 01/13/25 Unknown Gram Stain - Final Bronch Wash,Right Lower Lobe Bronchial Culture - Final Light normal phill. Diagnostic Findings (Past 24 Hours) Chest X-Ray 01/15/25 07:00 EXAM: XR chest 1V portable CLINICAL HISTORY: Resp failure. TECHNIQUE: An X-ray image of the chest is obtained in AP portable projection. COMPARISON: 01/14/2025 FINDINGS: ET tube seen 1.8cm from the suki. Unchanged, NG tube with tip reaching left infradiaphragmatic, in place. Unchanged left central venous catheter, tip in SVC Pulmonary Parenchyma: Partial resolution of the left lung opacification, with visualized left upper lung zone lung parenchyma Still seen opacified left middle and lower lung zones Right lung diffuse reticular opacities, prominent bronchovascular markings and frederic (unchanged) Obscured left costophrenic angle No evidence of right pleural effusion or pleural thickening. Heart and Mediastinum: Cardiomegaly Bony Thorax: Bony thorax appears intact without fractures or deformities. Soft Tissues: Soft tissues overlying the chest wall are unremarkable. IMPRESSION: 1. ET tube seen 1.8cm from suki. Clinical correlation is advised. 2. Unchanged, NG tube with tip reaching left infradiaphragmatic, inplace 3. Unchanged left central venous catheter, tip in SVC 4. Partial resolution of the left lung opacification, with visualized left upper lung zone lung parenchyma 5. Still seen opacified left middle and lower lung zones 6. Obscured left costophrenic angle (unchanged) Electronically signed by Jacky Villasenor 01-15-2025 07:30 AM I & O Totals 24 Hours 01/14/25 01/15/25 01/16/25 06:59 06:59 06:59 Intake Total 500.00 / 500.00 700.000 / 700.000 150.00 / 150.00 Output Total 1974 1585 / 1585 Balance -1475 / -1475.00 -885.000 / -885.000 150.00 / 150.00 Cumulative 01/08/25 21:36 thru 01/15/25 08:50 Intake Total 4615.521 Output Total 5970 Balance -1354.479 RT Ventilator Mngmt (Last Documented) Ventilator Ordered Settings Ventilator Support Mode Assist Control 01/15/25 07:28 Respiratory Rate 22 01/15/25 09:01 Ventilator Tidal Volume 365 01/15/25 07:28 Setting Minute Ventilation 6.6 01/15/25 07:28 Ventilator Positive Pressure 10 01/14/25 07:27 Support Setting Positive End Expiratory 10 01/15/25 07:28 Pressure Fraction of Inspired Oxygen 50 01/15/25 07:30 Peak Inspiratory Flow 24 01/15/25 07:28 Machine Comment RR changed to 16 after recent ABG 01/15/25 05:02 results Ventilator - PT Measurements Respiratory Rate 22 Exhaled Tidal Volume 365 Minute Ventilation 6.6 Peak Inspiratory Airway 28 Pressure Plateau Pressure 23.8 Respiratory Cycle Inspiratory: 1:2.8 Expiratory Ratio Inspiratory Phase Time 0.90 End-Tidal CO2 32 Static Lung Compliance 26.45 Dynamic Lung Compliance 20.28 Normal Static Lung Compliance 46.00 Patient Measurements Comment Changes made according to ABG results. Sury Webb PA-C CCM aware Coding Level of Care Code 52487 SUB INP/OBS CARE 3/50MIN Diagnoses Cardiac arrest I46.9 Aspiration into respiratory tract T17.908A Acute on chronic heart failure with preserved ejection fraction I50.33 Pickwickian syndrome E66.2 Pulmonary hypertension I27.20 Chronic hypoxic respiratory failure, on home oxygen therapy J96.11; Z99.81 Morbid obesity E66.01
[2025-01-15 11:52] LABS: iSTAT Art Bld Gas pCO2 Correct 53 mmHg (35-46); iSTAT Art Bld Gas pH Corrected 7.378 (7.35-7.45); iSTAT Arterial Blood Gas HCO3 31 meg/L (19-24); iSTAT Arterial Blood Gas pCO2 53 mmHg (35-46); iSTAT Arterial Blood Gas pH 7.38 (7.35-7.45); iSTAT Arterial Blood Gas pO2 37 mmHg (80-95); iSTAT Arterial Blood Gas pO2 C 37; iSTAT Carbon Dioxide 33 mmol/L (24-31); iSTAT FiO2 40 %; iSTAT Hematocrit 36 % (37-47); iSTAT Hemoglobin 12.2 g/dl (12.0-16.0); iSTAT Potassium 4.3 mmol/L (3.3-5.0); iSTAT Sample Type VEN; iSTAT Site Art Line; iSTAT Sodium 138 mmol/L (135-144); iSTAT SpO2 93
[2025-01-15] MEDS: FUROSEMIDE INJ 20 MG/2 ML VIAL IV SCH (14:43)
--- NOTE | 2025-01-15 16:18 | Hospitalist Progress Note ---
Date of Service January 15, 2025 Assessment & Plan (1) Acute and chronic respiratory failure with hypercapnia: Plan: Cardiopulmonary arrest secondary to possible aspiration -remains intubated -weaned off pressors -MRI head unrevealing for anoxic brain injury; exam improving overall -extubated today Plan: -vent management by Skein Straightener, appreciate the input -continue supportive care -now on nasal cannula -will check echo and repeat head imaging pending clinical course Acute on chronic hypoxemic, hypercapnic respiratory failure Secondary to HFpEF secondary to missed home medications, uncontrolled BP Underlying pulmonary hypertension hx chronic respiratory failure secondary to COPD/RLD on home O2 OHS on CPAP -maintained on Lasix IV -Hoop Bender Tank and Animal Health Technician on board Hypertensive Urgency -Carvedilol 3.125 mg BID resumed -Amlodipine 2.5 mg daily also added--> BP on the lower side, discontinued R lower leg wounds -no signs of infection -continue daily wound care -watershed program manager consulted Abnormal CT scan, chest: -per shop director: -Radiology noted a mild left basal pleural thickening and mild dependent reticular and ill-defined groundglass opacities in the basal segments of the left lower lobe. I suspect these are likely related to atelectasis and small chronic effusion. Recommend a follow-up CT chest in about 3 months. Troponin elevation secondary to above hyperlipidemia, on statin Rx DM2 insulin requiring, suboptimal control as of recent hemoglobin A1c of 8.25 September 2024 CRI, creatinine mildly increased, monitor closely anxiety/mood disorder, at baseline past tobacco abuse Advanced Care Plannin minutes spent discussing goals and values with son Anmol Benedict and brother Avinash. Began the meeting by introducing ourselves on a role in the team/family. Gave clinical update including much improved neurologic exam, extubation, brief discussion with patient in which she indicated she is overwhelmed. Family states that they are ecstatic that she is improving however they think it is a bit of whiplash for them given they thought she was going to pass away. Family states that they are not ready to talk about resuscitation status again at this time. Per son, who is next of kin as is , most important things to her are her 2 grandchildren and son. They have been having a difficult time at home given difficult social dynamics. They state that her biggest fear is being claustrophobic and she generally does not like masks. I stated that my hope is that she continues to improve, and my concern is that were not out of the luu yet in regards to her neurologic status and functionality after this hospitalization. Discussed that I will continue to update them with medical updates as they arise, they were appreciative of the update and care. I spent a total of 50 minutes in direct patient care, including [id number] time with the patient and/or family, reviewing medical records, ordering and reviewing diagnostic tests, and coordinating care with other healthcare providers. This time includes: history taking, physical examination, medical decision making, counseling, ECG interpretation, imaging interpretation, lab interpretation, orders, and education, excluding time spent in the performance of separately billed services. I spent a total of 30 minutes providing advanced care planning to the patient and/or family, including [id number] time discussing the patient's health status, prognosis, and treatment options. This time includes specific activities such as: discussing advance directives, goals of care, prognostication, and end-of-life planning. Admission and Anticipated Discharge Date Admission Date: January 09, 2025 Subjective patient seen and examined at bedside. Patient more responsive today. When asked if she feels overwhelmed she nods her head. Shakes her head when asked if she is in pain. Review of Systems Review of Systems: -unable to answer due to mental status Physical Exam Physical Exam: Gen: unclear orrientation, NAD HEENT: NCAT, EOMI, not icteric. External ears normal. No rhinorrhea. Moist mucous membranes. Neck: Supple, full range of motion, no observable masses, No meningeal sign. Lungs: rhonchi noted bilaterally, worse on right CV: RRR, no edema. Abdomen: Soft, nondistended, No rebound tenderness. MSK: No joint swelling, no redness. Skin: No rashes, petechiae, lesions. Normal color per patient. Neuro: improved neurologically, follows simple commands, nods and shakes head to questions, moving all 4 extremities Results & Data Results & Data Vital Signs (Past 12 Hours) Vital Signs Temp Pulse Resp BP Pulse Ox O2 Del Method O2 Flow Rate 01/15/25 16:03 36.4 C L 64 15 94 01/15/25 16:00 153/88 H 01/15/25 15:57 36.4 C L 65 18 91 01/15/25 15:30 Nasal Cannula 3 01/15/25 15:03 36.3 C L 65 16 94 01/15/25 15:01 146/76 H 01/15/25 14:57 36.4 C L 65 18 95 01/15/25 14:09 35.4 C L 53 L 22 149/93 H 99 01/15/25 13:06 36.5 C 47 L 21 137/74 98 01/15/25 12:00 36.7 C 60 23 98 01/15/25 11:53 54 L 23 93 01/15/25 11:12 36.8 C 49 L 22 136/70 98 01/15/25 10:09 37.0 C 58 L 22 141/86 H 96 01/15/25 09:01 36.5 C 56 L 22 145/91 H 92 BiPAP 01/15/25 09:00 57 L 24 97 01/15/25 08:00 37.0 C 52 L 22 160/78 H 93 01/15/25 08:00 59 L 01/15/25 07:30 Mechanical Vent 01/15/25 07:28 52 L 17 95 01/15/25 07:00 37.0 C 52 L 18 188/89 H 94 01/15/25 06:04 170/86 H 01/15/25 05:48 37.0 C 53 L 20 95 01/15/25 05:30 172/92 H 01/15/25 05:02 16 01/15/25 04:45 166/92 H FiO2 01/15/25 16:03 01/15/25 16:00 01/15/25 15:57 01/15/25 15:30 01/15/25 15:03 01/15/25 15:01 01/15/25 14:57 01/15/25 14:09 01/15/25 13:06 01/15/25 12:00 01/15/25 11:53 40 01/15/25 11:12 01/15/25 10:09 01/15/25 09:01 01/15/25 09:00 40 01/15/25 08:00 01/15/25 08:00 01/15/25 07:30 50 01/15/25 07:28 50 01/15/25 07:00 01/15/25 06:04 01/15/25 05:48 01/15/25 05:30 01/15/25 05:02 01/15/25 04:45 Laboratory Results -personally reviewed, downtrended creatinine, ABG showing very mild respiratory alkalosis Diagnostic Findings Chest X-Ray 01/15/25 07:00 EXAM: XR chest 1V portable CLINICAL HISTORY: Resp failure. TECHNIQUE: An X-ray image of the chest is obtained in AP portable projection. COMPARISON: 01/14/2025 FINDINGS: ET tube seen 1.8cm from the suki. Unchanged, NG tube with tip reaching left infradiaphragmatic, in place. Unchanged left central venous catheter, tip in SVC Pulmonary Parenchyma: Partial resolution of the left lung opacification, with visualized left upper lung zone lung parenchyma Still seen opacified left middle and lower lung zones Right lung diffuse reticular opacities, prominent bronchovascular markings and frederic (unchanged) Obscured left costophrenic angle No evidence of right pleural effusion or pleural thickening. Heart and Mediastinum: Cardiomegaly Bony Thorax: Bony thorax appears intact without fractures or deformities. Soft Tissues: Soft tissues overlying the chest wall are unremarkable. IMPRESSION: 1. ET tube seen 1.8cm from suki. Clinical correlation is advised. 2. Unchanged, NG tube with tip reaching left infradiaphragmatic, inplace 3. Unchanged left central venous catheter, tip in SVC 4. Partial resolution of the left lung opacification, with visualized left upper lung zone lung parenchyma 5. Still seen opacified left middle and lower lung zones 6. Obscured left costophrenic angle (unchanged) Electronically signed by Jacky Villasenor 01-15-2025 07:30 AM -personally reviewed chest xray, left lung infiltrates appear improved Medications Administered Acetaminophen (Acetaminophen 325 Mg Tab) 650 mg PO QID PRN PRN Reason: pain/fever Stop: 02/08/25 04:44 Last Admin: 01/11/25 21:17 Dose: 650 mg Documented By: x ray service technician: 01/10/25 23:34 Dose: 650 mg Documented By: Admin: 01/10/25 09:14 Dose: 650 mg Documented By: Admin: 01/09/25 22:13 Dose: 650 mg Documented By: VICKIE Cyanocobalamin (Cyanocobalamin (B-12) 500 Mcg Tablet) 1,000 mcg PO DAILY ALBERTO Stop: 02/08/25 08:59 Last Admin: 01/15/25 09:23 Dose: Not Given Documented By: Admin: 01/14/25 07:46 Dose: 1,000 mcg Documented By: Admin: 01/13/25 07:50 Dose: 1,000 mcg Documented By: Admin: 01/12/25 10:13 Dose: Not Given Documented By: Admin: 01/11/25 08:24 Dose: 1,000 mcg Documented By: Admin: 01/10/25 08:47 Dose: 1,000 mcg Documented By: Admin: 01/09/25 09:44 Dose: 1,000 mcg Documented By: COLLIN Furosemide (Furosemide Inj 20 Mg/2 Ml Vial) 20 mg IV DAILY ALBERTO Stop: 02/14/25 14:44 Last Admin: 01/15/25 14:43 Dose: 20 mg Documented By: DEEPTHIK Gabapentin (Gabapentin 100 Mg Cap) 200 mg PO HS ALBERTO Stop: 02/11/25 08:59 Last Admin: 01/14/25 20:08 Dose: 200 mg Documented By: BIMAL Heparin Sodium (Porcine) (Heparin Sod 5,000 Unit/0.5 Ml Vial) 5,000 units SQ Q8H ALBERTO Stop: 02/08/25 05:59 Last Admin: 01/15/25 14:43 Dose: 5,000 units Documented By: Admin: 01/15/25 05:53 Dose: 5,000 units Documented By: Admin: 01/14/25 22:37 Dose: 5,000 units Documented By: Admin: 01/14/25 15:35 Dose: 5,000 units Documented By: Admin: 01/14/25 05:49 Dose: 5,000 units Documented By: Admin: 01/13/25 21:21 Dose: 5,000 units Documented By: Admin: 01/13/25 13:50 Dose: 5,000 units Documented By: Admin: 01/13/25 05:45 Dose: 5,000 units Documented By: Admin: 01/12/25 21:48 Dose: 5,000 units Documented By: Admin: 01/12/25 14:24 Dose: 5,000 units Documented By: Admin: 01/12/25 05:44 Dose: 5,000 units Documented By: x ray service technician: 01/11/25 21:19 Dose: 5,000 units Documented By: x ray service technician: 01/11/25 14:08 Dose: 5,000 units Documented By: ANAIS(2) Admin: 01/11/25 06:23 Dose: 5,000 units Documented By: Admin: 01/10/25 21:24 Dose: 5,000 units Documented By: Admin: 01/10/25 13:18 Dose: 5,000 units Documented By: Admin: 01/10/25 06:17 Dose: 5,000 units Documented By: Admin: 01/09/25 22:14 Dose: 5,000 units Documented By: Admin: 01/09/25 15:14 Dose: 5,000 units Documented By: Admin: 01/09/25 06:21 Dose: 5,000 units Documented By: MIKE Promethazine HCl (Phenergan) 6.25 mg in 50.25 mls @ 201 mls/hr IV Q6H PRN PRN Reason: Nausea And Vomiting Stop: 02/08/25 04:44 Last Infusion: 01/10/25 09:50 Dose: Infused Documented By: Admin: 01/10/25 09:20 Dose: 201 mls/hr Documented By: HENNY Piperacillin Sod/Tazobactam Sod (Zosyn) 4.5 gm in 100 mls @ 25 mls/hr IV Q8H ALBERTO; Protocol Stop: 01/16/25 02:59 Last Infusion: 01/15/25 15:16 Dose: Infused Documented By: Admin: 01/15/25 11:38 Dose: 25 mls/hr Documented By: Infusion: 01/15/25 07:52 Dose: Infused Documented By: Admin: 01/15/25 03:49 Dose: 25 mls/hr Documented By: Infusion: 01/14/25 22:43 Dose: Infused Documented By: Admin: 01/14/25 18:43 Dose: 25 mls/hr Documented By: Infusion: 01/14/25 18:23 Dose: Infused Documented By: Admin: 01/14/25 10:06 Dose: 25 mls/hr Documented By: Infusion: 01/14/25 07:46 Dose: Infused Documented By: Admin: 01/14/25 03:40 Dose: 25 mls/hr Documented By: Infusion: 01/13/25 23:40 Dose: Infused Documented By: Admin: 01/13/25 19:40 Dose: 25 mls/hr Documented By: Infusion: 01/13/25 18:06 Dose: Infused Documented By: Admin: 01/13/25 11:46 Dose: 25 mls/hr Documented By: Infusion: 01/13/25 06:55 Dose: Infused Documented By: Admin: 01/13/25 02:45 Dose: 25 mls/hr Documented By: BIMAL Insulin Aspart (Insulin Aspart Per Unit Charge) 0 units SC Q4H ALBERTO Stop: 02/14/25 00:00 Last Admin: 01/15/25 15:26 Dose: 1 units Documented By: SIMONA Co-signed By: MATEO Admin: 01/15/25 11:37 Dose: 3 units Documented By: CONCHA Co-signed By: SIMONA Admin: 01/15/25 07:30 Dose: 6 units Documented By: CONCHA Co-signed By: RAQUEL Admin: 01/15/25 04:35 Dose: 6 units Documented By: BIMAL Co-signed By: ORLANDO Admin: 01/15/25 00:22 Dose: 5 units Documented By: BIMAL Co-signed By: RUDDY Insulin Glargine (Lantus Per Unit Charge) 5 units SQ HS ALBERTO Stop: 02/08/25 20:59 Last Admin: 01/14/25 20:24 Dose: 5 units Documented By: BIMAL Co-signed By: SKS Admin: 01/13/25 20:45 Dose: 5 units Documented By: BIMAL Co-signed By: SG Admin: 01/12/25 21:47 Dose: 5 units Documented By: BIMAL Co-signed By: SG Admin: 01/11/25 21:17 Dose: 5 units Documented By: MED Co-signed By: VK Admin: 01/10/25 21:25 Dose: 5 units Documented By: BK Co-signed By: PAH Admin: 01/09/25 22:13 Dose: 5 units Documented By: VICKIE Co-signed By: HELIO Miscellaneous (Icu Electrolyte Replacement Protocol) 1 each N/A BID@06,18 [facility]; Protocol Stop: 01/19/25 17:59 Last Admin: 01/15/25 15:06 Dose: Not Given Documented By: Admin: 01/15/25 05:56 Dose: Not Given Documented By: Admin: 01/14/25 18:11 Dose: 1 each Documented By: Admin: 01/14/25 06:16 Dose: Not Given Documented By: Admin: 01/13/25 20:15 Dose: Not Given Documented By: Admin: 01/13/25 05:23 Dose: 1 each Documented By: Admin: 01/12/25 22:10 Dose: Not Given Documented By: AMS Multivitamins/Minerals (Multi Vit W/Minerals Liquid 15 Ml Udc) 15 ml NG QAM ALBERTO Stop: 02/14/25 08:59 Last Admin: 01/15/25 09:23 Dose: Not Given Documented By: NMK Nutritional Formula (Peptamen Intense Vhp 1.0 Alex 1,000 Ml Bag) 1,000 ml OG .See Protocol ALBERTO; Protocol Stop: 02/13/25 11:44 Last Admin: 01/14/25 18:10 Dose: 1,000 ml Documented By: LAF Sterile Water (Tube Feeding Water Flush) 30 ml OG Q4H ALBERTO Stop: 02/13/25 11:44 Last Admin: 01/15/25 15:07 Dose: Not Given Documented By: Admin: 01/15/25 15:06 Dose: Not Given Documented By: Admin: 01/15/25 11:33 Dose: Not Given Documented By: Admin: 01/15/25 07:28 Dose: 30 ml Documented By: Admin: 01/15/25 03:53 Dose: 30 ml Documented By: Admin: 01/15/25 00:11 Dose: 30 ml Documented By: Admin: 01/14/25 20:24 Dose: 30 ml Documented By: Admin: 01/14/25 15:35 Dose: 30 ml Documented By: Admin: 01/14/25 12:24 Dose: Not Given Documented By: LAF Vitamin D (Cholecalciferol 25 Mcg (1000 Units) Tab) 25 mcg PO DAILY ALBERTO Stop: 02/08/25 08:59 Last Admin: 01/15/25 09:23 Dose: Not Given Documented By: Admin: 01/14/25 07:45 Dose: 25 mcg Documented By: Admin: 01/13/25 07:50 Dose: 25 mcg Documented By: Admin: 01/12/25 10:13 Dose: Not Given Documented By: Admin: 01/11/25 08:24 Dose: 25 mcg Documented By: Admin: 01/10/25 08:48 Dose: 25 mcg Documented By: Admin: 01/09/25 09:44 Dose: 25 mcg Documented By: COLLIN
[2025-01-16 05:27] LABS: BUN Creatinine Ratio 36.7 (10-20); Creatinine Clr Calc Pharmacy 47.5 ml/min; Magnesium 2.2 mg/dl (1.7-2.4); Phosphorus 3.7 mg/dl (2.5-4.9); Potassium 3.9 mmol/L (3.5-5.1)
[2025-01-16 06:15] LABS: Hemoglobin 12.9 g/dl (12.0-16.0); Mean Corpuscular Hgb Conc 30.7 g/dL (32.0-36.0); Mean Corpuscular Volume 84.5 fL (80.0-100.0); Mean Platelet Volume 9.9 fL (9.4-12.4); Platelet Count 203 K/uL (130-400); RDW Coefficient of Variation 16.3 % (11.5-14.5); RDW Standard Deviation 50.4 fL (36.4-46.3); Red Blood Count 4.97 M/uL (4.20-5.40); White Blood Count 11.82 K/ul (4.8-10.8)
[2025-01-16] MEDS: POTASSIUM CHLORIDE / WTR 20 MEQ/100 ML PLCT IV STA (06:17)
--- NOTE | 2025-01-16 08:11 | XRay Report ---
EXAM: XR chest 1V portable CLINICAL HISTORY: Respiratory failure TECHNIQUE: An X-ray image of the chest is obtained using an AP portable projection. COMPARISON: 01/14/25 FINDINGS: Unchanged left central venous catheter, tip in the superior vena cava. Pulmonary Parenchyma: Increase in the left lung opacification, now covering the left upper lung zone. Right lung diffuse reticular opacities, prominent bronchovascular markings and frederic (unchanged) Obscured left costophrenic angle No evidence of right pleural effusion or pleural thickening. Heart and Mediastinum: Cardiomegaly Bony Thorax: Bony thorax appears intact without fractures or deformities. Soft Tissues: Soft tissues overlying the chest wall are unremarkable. IMPRESSION: In comparison with the previous study: 1. Progressive opacification in the left covering the upper lung zone and obliterated left costophrenic angle. 2. Unchanged left central venous catheter 3. Endotracheal and nasogastric tubes are not currently seen. Electronically signed by Jacky Villasenor 01-16-2025 08:11 AM
--- NOTE | 2025-01-16 08:39 | Critical Care Progress Note ---
Date of Service January 16, 2025 Assessment & Plan (1) Cardiac arrest: (2) Aspiration into respiratory tract: (3) Acute on chronic heart failure with preserved ejection fraction: (4) Pickwickian syndrome: (5) Pulmonary hypertension: (6) Chronic hypoxic respiratory failure, on home oxygen therapy: (7) Morbid obesity: Plan Impression: 69-year-old female with multiple medical issues including acute on chronic hypoxemic respiratory failure and hypercarbic respiratory failure with noncompliance with noninvasive positive pressure ventilation at home admitted with shortness of breath and fluid overload. She was diuresed and being treated with BiPAP but suffered an aspiration event 01/12/2025 resulting in cardiac arrest and prolonged PEA code. She is now in the ICU intubated and on an epinephrine infusion. 24-hour events: Extubated yesterday. Was on BiPAP but transitioned to fullface mask. Cough with some phlegm production overnight. Chest x-ray this morning demonstrates opacification of the left hemithorax consistent with mucous plugging. Recommendations: 1. Neurologic: Continue supportive care. The patient has shown improvement but is not back to baseline. Will need aggressive PT OT and rehab 2. Cardiovascular: PEA arrest likely secondary to aspiration event and hypoxemia. Pulmonary hypertension: Diuretics can be reinitiated 3. Pulmonary: Massive aspiration event. Chest x-ray today with opacification of the left hemithorax. Do not think the patient is stable from a sedation standpoint to consider bronchoscopy currently. May result in repeat intubation. If intubated, may require tracheostomy. For now we will pursue aggressive pulmonary toilet including hypertonic saline, chest PT, flutter valve, and incentive spirometry if the patient is able to comply. Encourage deep breathing and coughing. Will observe closely for respiratory failure. She has had issues with application of BiPAP overnight with inability to clear secretions but ultimately this will be necessary to correct her obesity hypoventilation syndrome 4. ID: Completed 5-day course Zosyn. White blood cell count elevated today. She remains afebrile. Cultures are negative to date. 5. GI: N.p.o. pending swallow evaluation and resolution of mental status changes 6. Renal: Kidney function improving. Continue ICU electrolyte replacement protocol. Diuresis as tolerated 7. Endocrine: Glycemic control per protocol. 8. Heme-onc: No current issues. DVT prophylaxis will be continued. Family updated by primary admitting service. Unclear endpoints. Family appears to want aggressive interventions and care. Family has previously requested transfer to higher level of care. Deferred to primary service. Admission and Anticipated Discharge Date Admission Date: January 09, 2025 Subjective Patient seen and examined. EMR reviewed. Discussed with overnight critical care [facility] as well as with bedside nurse and on multidisciplinary rounds. Patient remains extubated. She has had a cough productive of some phlegm overnight. She is able to follow commands and answer questions but continues to demonstrate distracted affect. She has been hemodynamically stable. Review of Systems Review of Systems: All systems reviewed & are unremarkable except as noted in Subjective Physical Exam Constitutional: + morbidly obese and + disheveled Neck: trachea midline, no thyromegaly Respiratory: no labored breathing and no cough Auscultation: + rhonchi; no wheezes Cardiovascular: RRR, no murmur, no edema Gastrointestinal (Abdomen): normal bowel sounds, soft, nontender, no hepatosplenomegaly Musculoskeletal: Extremities: extremities normal to inspection Skin: no rashes, warm and dry Lymphatic: no cervical lymphadenopathy Results & Data Results & Data Vital Signs (Past 12 Hours) Vital Signs Temp Pulse Pulse Resp BP BP Pulse Ox 01/16/25 06:00 36.7 C 80 19 168/86 H 93 01/16/25 05:09 36.7 C 92 01/16/25 05:01 178/88 H 01/16/25 05:01 178/88 H 01/16/25 04:39 36.7 C 82 22 88 L 01/16/25 04:03 36.7 C 82 14 94 01/16/25 04:00 182/80 H 01/16/25 04:00 182/80 H 01/16/25 03:48 36.7 C 87 17 94 01/16/25 03:09 36.7 C 80 15 90 01/16/25 03:01 186/83 H 01/16/25 03:01 186/83 H 01/16/25 02:45 36.7 C 83 15 94 01/16/25 02:09 36.7 C 89 90 01/16/25 02:01 194/91 H 01/16/25 01:57 36.7 C 81 92 01/16/25 01:12 36.7 C 81 17 91 01/16/25 01:00 179/95 H 01/16/25 01:00 179/95 H 01/16/25 00:45 36.7 C 77 24 95 01/16/25 00:09 36.7 C 72 18 100 01/16/25 00:00 183/86 H 01/16/25 00:00 183/86 H 01/16/25 00:00 75 01/15/25 23:39 36.7 C 77 18 96 01/15/25 23:03 36.7 C 75 18 93 01/15/25 23:01 189/93 H 01/15/25 23:01 189/93 H 01/15/25 22:57 36.7 C 77 28 H 88 L 01/15/25 22:03 36.7 C 83 23 92 01/15/25 22:01 190/92 H 01/15/25 22:01 190/92 H 01/15/25 22:00 36.7 C 80 26 H 93 01/15/25 21:06 35.6 C L 80 15 89 L 01/15/25 21:01 142/83 H 01/15/25 21:00 36.6 C 82 22 88 L 01/15/25 20:41 O2 Del Method O2 Flow Rate 01/16/25 06:00 Oxymask 4 01/16/25 05:09 Oxymask 4 01/16/25 05:01 01/16/25 05:01 01/16/25 04:39 Oxymask 4 01/16/25 04:03 Oxymask 4 01/16/25 04:00 01/16/25 04:00 01/16/25 03:48 Oxymask 4 01/16/25 03:09 Oxymask 4 01/16/25 03:01 01/16/25 03:01 01/16/25 02:45 Oxymask 4 01/16/25 02:09 Oxymask 4 01/16/25 02:01 01/16/25 01:57 Oxymask 4 01/16/25 01:12 Oxymask 4 01/16/25 01:00 01/16/25 01:00 01/16/25 00:45 Oxymask 4 01/16/25 00:09 01/16/25 00:00 01/16/25 00:00 01/16/25 00:00 01/15/25 23:39 Oxymask 3 01/15/25 23:03 Oxymask 3 01/15/25 23:01 01/15/25 23:01 01/15/25 22:57 Oxymask 3 01/15/25 22:03 01/15/25 22:01 01/15/25 22:01 01/15/25 22:00 4 01/15/25 21:06 Oxymask 4 01/15/25 21:01 01/15/25 21:00 Nasal Cannula 3 01/15/25 20:41 Nasal Cannula, BiPAP 3 Critical Care Results & Data Vital Signs (Past 12 Hours) Vital Signs Temp Pulse Pulse Resp BP BP Pulse Ox 01/16/25 06:00 36.7 C 80 19 168/86 H 93 01/16/25 05:09 36.7 C 92 01/16/25 05:01 178/88 H 01/16/25 05:01 178/88 H 01/16/25 04:39 36.7 C 82 22 88 L 01/16/25 04:03 36.7 C 82 14 94 01/16/25 04:00 182/80 H 01/16/25 04:00 182/80 H 01/16/25 03:48 36.7 C 87 17 94 01/16/25 03:09 36.7 C 80 15 90 01/16/25 03:01 186/83 H 01/16/25 03:01 186/83 H 01/16/25 02:45 36.7 C 83 15 94 01/16/25 02:09 36.7 C 89 90 01/16/25 02:01 194/91 H 01/16/25 01:57 36.7 C 81 92 01/16/25 01:12 36.7 C 81 17 91 01/16/25 01:00 179/95 H 01/16/25 01:00 179/95 H 01/16/25 00:45 36.7 C 77 24 95 01/16/25 00:09 36.7 C 72 18 100 01/16/25 00:00 183/86 H 01/16/25 00:00 183/86 H 01/16/25 00:00 75 01/15/25 23:39 36.7 C 77 18 96 01/15/25 23:03 36.7 C 75 18 93 01/15/25 23:01 189/93 H 01/15/25 23:01 189/93 H 01/15/25 22:57 36.7 C 77 28 H 88 L 01/15/25 22:03 36.7 C 83 23 92 01/15/25 22:01 190/92 H 01/15/25 22:01 190/92 H 01/15/25 22:00 36.7 C 80 26 H 93 01/15/25 21:06 35.6 C L 80 15 89 L 01/15/25 21:01 142/83 H 01/15/25 21:00 36.6 C 82 22 88 L 01/15/25 20:41 O2 Del Method O2 Flow Rate 01/16/25 06:00 Oxymask 4 01/16/25 05:09 Oxymask 4 01/16/25 05:01 01/16/25 05:01 01/16/25 04:39 Oxymask 4 01/16/25 04:03 Oxymask 4 01/16/25 04:00 01/16/25 04:00 01/16/25 03:48 Oxymask 4 01/16/25 03:09 Oxymask 4 01/16/25 03:01 01/16/25 03:01 01/16/25 02:45 Oxymask 4 01/16/25 02:09 Oxymask 4 01/16/25 02:01 01/16/25 01:57 Oxymask 4 01/16/25 01:12 Oxymask 4 01/16/25 01:00 01/16/25 01:00 01/16/25 00:45 Oxymask 4 01/16/25 00:09 01/16/25 00:00 01/16/25 00:00 01/16/25 00:00 01/15/25 23:39 Oxymask 3 01/15/25 23:03 Oxymask 3 01/15/25 23:01 01/15/25 23:01 01/15/25 22:57 Oxymask 3 01/15/25 22:03 01/15/25 22:01 01/15/25 22:01 01/15/25 22:00 4 01/15/25 21:06 Oxymask 4 01/15/25 21:01 01/15/25 21:00 Nasal Cannula 3 01/15/25 20:41 Nasal Cannula, BiPAP 3 Lab & Micro Results (Past 24 Hours) RBC 4.97 M/uL (4.20-5.40) 01/16/25 WBC 11.82 K/ul (4.8-10.8) H 01/16/25 Hgb 12.9 g/dl (12.0-16.0) 01/16/25 Hct 42.0 % (37.0-47.0) 01/16/25 MCV 84.5 fL (80.0-100.0) 01/16/25 MCH 26.0 pg (25.0-34.0) 01/16/25 MCHC 30.7 g/dL (32.0-36.0) L 01/16/25 RDW Standard Deviation 50.4 fL (36.4-46.3) H 01/16/25 RDW Coefficient of Variation 16.3 % (11.5-14.5) H 01/16/25 Plt Count 203 K/uL (130-400) 01/16/25 MPV 9.9 fL (9.4-12.4) 01/16/25 Na 141 mmol/L (136-145) 01/16/25 K 3.9 mmol/L (3.5-5.1) 01/16/25 Cl 100 mmol/L (98-107) 01/16/25 CO2 35 mmol/L (21-32) H 01/16/25 Anion Gap 6 (3-11) 01/16/25 BUN 54 mg/dl (6-23) H 01/16/25 Creatinine 1.47 mg/dl (0.6-1.2) H 01/16/25 BUN/Creatinine Ratio 36.7 (10-20) H 01/16/25 Glu 118 mg/dl (70-99(Fasting)) H 01/16/25 Ca 9.0 mg/dl (8.6-10.3) 01/16/25 Phosphorus Level 3.7 mg/dl (2.5-4.9) 01/16/25 Mg 2.2 mg/dl (1.7-2.4) 01/16/25 04:40 Calcium Level 9.0 mg/dl (8.6-10.3) 01/16/25 04:40 Mauro Test NA 01/15/25 11:36 Microbiology 01/13/25 Unknown Gram Stain - Final Bronch Wash,Right Lower Lobe Bronchial Culture - Final Light normal phill. Diagnostic Findings (Past 24 Hours) Chest X-Ray 01/16/25 07:00 EXAM: XR chest 1V portable CLINICAL HISTORY: Respiratory failure TECHNIQUE: An X-ray image of the chest is obtained using an AP portable projection. COMPARISON: 01/14/25 FINDINGS: Unchanged left central venous catheter, tip in the superior vena cava. Pulmonary Parenchyma: Increase in the left lung opacification, now covering the left upper lung zone. Right lung diffuse reticular opacities, prominent bronchovascular markings and frederic (unchanged) Obscured left costophrenic angle No evidence of right pleural effusion or pleural thickening. Heart and Mediastinum: Cardiomegaly Bony Thorax: Bony thorax appears intact without fractures or deformities. Soft Tissues: Soft tissues overlying the chest wall are unremarkable. IMPRESSION: In comparison with the previous study: 1. Progressive opacification in the left covering the upper lung zone and obliterated left costophrenic angle. 2. Unchanged left central venous catheter 3. Endotracheal and nasogastric tubes are not currently seen. Electronically signed by Jacky Villasenor 01-16-2025 08:11 AM I & O Totals 24 Hours 01/15/25 01/16/25 01/17/25 06:59 06:59 06:59 Intake Total 700.000 / 700.000 350.00 / 350.00 Output Total 1585 / 1585 2410 / 2410 Balance -885.000 / -885.000 -2060.00 / -2060.00 Cumulative 01/08/25 21:36 thru 01/16/25 06:05 Intake Total 4815.521 Output Total 8380 Balance -3564.479 RT Ventilator Mngmt (Last Documented) Ventilator Ordered Settings Ventilator Support Mode Assist Control 01/15/25 07:28 Respiratory Rate 19 01/16/25 06:00 Ventilator Tidal Volume 365 01/15/25 07:28 Setting Minute Ventilation 6.6 01/15/25 07:28 Ventilator Positive Pressure 10 01/14/25 07:27 Support Setting Positive End Expiratory 10 01/15/25 07:28 Pressure Fraction of Inspired Oxygen 40 01/15/25 11:53 Peak Inspiratory Flow 24 01/15/25 07:28 Machine Comment RR changed to 16 after recent ABG 01/15/25 05:02 results Ventilator - PT Measurements Respiratory Rate 19 Exhaled Tidal Volume 365 Minute Ventilation 6.6 Peak Inspiratory Airway 28 Pressure Plateau Pressure 23.8 Respiratory Cycle Inspiratory: 1:2.8 Expiratory Ratio Inspiratory Phase Time 0.90 End-Tidal CO2 32 Static Lung Compliance 26.45 Dynamic Lung Compliance 20.28 Normal Static Lung Compliance 46.00 Patient Measurements Comment extubated to bipap 13/07 Coding Level of Care Code 83682 SUB INP/OBS CARE 3/50MIN Diagnoses Cardiac arrest I46.9 Aspiration into respiratory tract T17.908A Acute on chronic heart failure with preserved ejection fraction I50.33 Pickwickian syndrome E66.2 Pulmonary hypertension I27.20 Chronic hypoxic respiratory failure, on home oxygen therapy J96.11; Z99.81 Morbid obesity E66.01
[2025-01-16] MEDS: POTASSIUM CHLORIDE / WTR 20 MEQ/100 ML PLCT IV ONE (08:56)
[2025-01-16] MEDS: INSULIN ASPART PER UNIT CHARGE SC SCH (12:39)
[2025-01-16] MEDS: ONDANSETRON INJ 2 MG/ML 2 ML VIAL IV PRN (14:38)
[2025-01-16] MEDS: ONDANSETRON INJ 2 MG/ML 2 ML VIAL ONE (14:41)
--- NOTE | 2025-01-16 15:33 | Hospitalist Progress Note ---
Date of Service January 16, 2025 Assessment & Plan (1) Acute and chronic respiratory failure with hypercapnia: Plan: Cardiopulmonary arrest secondary to possible aspiration -remains intubated -weaned off pressors -MRI head unrevealing for anoxic brain injury; exam improving overall -extubated -continues to have shallow breathing on exam, on nasal cannula Plan: -appreciate critical care consult -continue supportive care -now on nasal cannula -will check echo and repeat head imaging pending clinical course -per patient expressed wishes would like friend Michelle and son Anmol to make decisions jointly on her behalf, and would like to be full code at this time Acute on chronic hypoxemic, hypercapnic respiratory failure Secondary to HFpEF secondary to missed home medications, uncontrolled BP Underlying pulmonary hypertension hx chronic respiratory failure secondary to COPD/RLD on home O2 OHS on CPAP -maintained on Lasix IV -Junior Graphic Designer and Information Management Officer on board Hypertensive Urgency -Carvedilol 3.125 mg BID R lower leg wounds -no signs of infection -continue daily wound care -kitchen utility associate consulted Abnormal CT scan, chest: -per assembler tubing: -Radiology noted a mild left basal pleural thickening and mild dependent reticular and ill-defined groundglass opacities in the basal segments of the left lower lobe. I suspect these are likely related to atelectasis and small chronic effusion. Recommend a follow-up CT chest in about 3 months. Troponin elevation secondary to above hyperlipidemia, on statin Rx DM2 insulin requiring, suboptimal control as of recent hemoglobin A1c of 8.25 September 2024 CRI, creatinine mildly increased, monitor closely anxiety/mood disorder, at baseline past tobacco abuse I spent a total of 60 minutes in direct patient care, including [id number] time with the patient and/or family, reviewing medical records, ordering and reviewing diagnostic tests, and coordinating care with other healthcare providers. This time includes: history taking, physical examination, medical decision making, counseling, ECG interpretation, imaging interpretation, lab interpretation, orders, and education, excluding time spent in the performance of separately billed services. Admission and Anticipated Discharge Date Admission Date: January 09, 2025 Subjective Patient seen and examined at bedside. Patient is alert and oriented x 2 and was able to answer yes and no questions for me. When asked who she would want to make decisions for her, she states she would want either her nurse friend Michelle and her son Anmol. She states she would like them to make decisions together if needed. Additionally when asked if she be willing to have a ventilator or chest compressions, she states she would be willing to do it again. Of note, with son and brother's permission, discussed case with nurse friend Dianne gave her an update in regards to complex medical situation, she was appreciative of the update. Attempted to reach Anmol but he was unreachable at this time. Did discuss case with brother Avinash again with permission of son Anmol from yesterday who was appreciative of the update. Discussed patient preference that her best friend Raymundo makes decisions with her son Anmol, Avinash was appreciative of the update. Review of Systems Review of Systems: -unable to answer due to mental status Physical Exam Physical Exam: Gen: unclear orrientation, NAD HEENT: NCAT, EOMI, not icteric. External ears normal. No rhinorrhea. Moist mucous membranes. Neck: Supple, full range of motion, no observable masses, No meningeal sign. Lungs: rhonchi noted bilaterally, worse on right CV: RRR, no edema. Abdomen: Soft, nondistended, No rebound tenderness. MSK: No joint swelling, no redness. Skin: No rashes, petechiae, lesions. Normal color per patient. Neuro: improved neurologically, follows commands, able to hold several word sentance conversations, moving all 4 extremities Results & Data Results & Data Vital Signs (Past 12 Hours) Vital Signs Temp Pulse Pulse Resp BP BP Pulse Ox 01/16/25 09:17 01/16/25 09:06 36.6 C 83 15 158/73 H 92 01/16/25 08:06 36.6 C 81 23 96 01/16/25 08:00 162/103 H 01/16/25 08:00 162/103 H 01/16/25 08:00 88 01/16/25 07:54 36.7 C 82 21 94 01/16/25 07:20 167/78 H 01/16/25 07:18 185/140 H 01/16/25 07:09 36.7 C 102 H 92 01/16/25 07:00 36.7 C 89 90 01/16/25 06:00 36.7 C 80 19 168/86 H 93 01/16/25 05:09 36.7 C 92 01/16/25 05:01 178/88 H 01/16/25 05:01 178/88 H 01/16/25 04:39 36.7 C 82 22 88 L 01/16/25 04:03 36.7 C 82 14 94 01/16/25 04:00 182/80 H 01/16/25 04:00 182/80 H 01/16/25 03:48 36.7 C 87 17 94 O2 Del Method O2 Flow Rate 01/16/25 09:17 Nasal Cannula 3 01/16/25 09:06 01/16/25 08:06 01/16/25 08:00 01/16/25 08:00 01/16/25 08:00 01/16/25 07:54 01/16/25 07:20 01/16/25 07:18 01/16/25 07:09 01/16/25 07:00 Oxymask 3 01/16/25 06:00 Oxymask 4 01/16/25 05:09 Oxymask 4 01/16/25 05:01 01/16/25 05:01 01/16/25 04:39 Oxymask 4 01/16/25 04:03 Oxymask 4 01/16/25 04:00 01/16/25 04:00 01/16/25 03:48 Oxymask 4 Laboratory Results -personally reviewed, elevated leukocytosis to 11.82, creatinine continues to downtrend Diagnostic Findings Chest X-Ray 01/16/25 07:00 EXAM: XR chest 1V portable CLINICAL HISTORY: Respiratory failure TECHNIQUE: An X-ray image of the chest is obtained using an AP portable projection. COMPARISON: 01/14/25 FINDINGS: Unchanged left central venous catheter, tip in the superior vena cava. Pulmonary Parenchyma: Increase in the left lung opacification, now covering the left upper lung zone. Right lung diffuse reticular opacities, prominent bronchovascular markings and frederic (unchanged) Obscured left costophrenic angle No evidence of right pleural effusion or pleural thickening. Heart and Mediastinum: Cardiomegaly Bony Thorax: Bony thorax appears intact without fractures or deformities. Soft Tissues: Soft tissues overlying the chest wall are unremarkable. IMPRESSION: In comparison with the previous study: 1. Progressive opacification in the left covering the upper lung zone and obliterated left costophrenic angle. 2. Unchanged left central venous catheter 3. Endotracheal and nasogastric tubes are not currently seen. Electronically signed by Jacky Villasenor 01-16-2025 08:11 AM -personally reviewed, slightly worse infiltrates in left lung
[2025-01-16] MEDS: SODIUM CHLOR 7% 4 ML NEB NEB SCH (22:26)
[2025-01-16] MEDS: hydrALAZINE HCL 20 MG/ML VIAL IV PRN (23:08)
[2025-01-17 05:11] LABS: BUN Creatinine Ratio 37.3 (10-20); Calcium 8.3 mg/dl (8.6-10.3); Creatinine Clr Calc Pharmacy 58.5 ml/min; Magnesium 1.9 mg/dl (1.7-2.4); Phosphorus 3.7 mg/dl (2.5-4.9); Potassium 4.1 mmol/L (3.5-5.1)
[2025-01-17] MEDS: MAGNESIUM SULFATE / D5W 1 GM/100 ML BAG IV SCH (06:19)
[2025-01-17] MEDS: MoRPHine SULFATE 2 MG/ML CARP ONE (07:48)
[2025-01-17] MEDS: fentaNYL citrate PF 100 MCG/2 ML VIAL IV ONE (07:58)
[2025-01-17] MEDS: MIDAZOLAM HCL 5 MG/ML 2ML VIAL ONE (07:58)
--- NOTE | 2025-01-17 08:16 | Procedure Note ---
Procedure Note Date of Service January 17, 2025 Procedure: Fiberoptic bronchoscopy Therapeutic aspiration of secretions, subsequent Intubation Provider: Sacha Samuel MD Consent: Procedure was emergent. Patient is obtunded and unable to provide consent. No family immediately available Procedure: Patient is in the ICU. She has had left lung atelectasis for 2 days which is failed despite aggressive pulmonary toilet measures. Bronchoscopy was indicated to clear the airways. The patient initially received some morphine. We attempted to pass the scope through the right nares but did encounter some minor bleeding. Unfortunately the patient desaturated with this attempt and we were unable to obtain an adequate view. It was felt best to intubate the patient to allow for safe inspection bronchoscopy. Patient was placed supine. She was administered 40 mg of IV etomidate. 2 mg of Versed and 50 mcg of fentanyl were also administered. Once the patient was sedated, [id number] was initiated and the patient was able to maintain saturations in the low 80% range. Video laryngoscopy was performed. There was blood above the cords which was suctioned free. Once it was free, a 7.0 endotracheal tube was advanced under video larynx scopic guidance and passed through through the vocal cords. The stylette was removed. Balloon was inflated. End-tidal CO2 was detected and bilateral breath sounds were appreciated. Oxygen saturations improved. The Bodai adapter was then placed in line with the newly placed endotracheal tube. The fiberoptic scope was advanced through the tube. There were some bloody secretions which were lavaged/aspirated free. The tube was sounded and found to be about 2 cm above the suki. The left mainstem bronchus was inflamed and slightly narrowed. There were mucopurulent secretions present throughout that tree which were lavaged free. Right-sided airways were also inflamed. No endobronchial lesions were identified. The tracheobronchial tree was clear at the conclusion of the procedure with residual narrowing of the left mainstem bronchus Impression: 1. Endotracheal tube in good position. 2. Significant narrowing with mucopurulent secretions present within the left mainstem bronchus. [facility] Procedure Codes (Charges) Pulmonary/Thoracic Procedure 1: Pulmonary and Thoracic: 44584 Bronchoscopy, reclear airway Resuscitation Resuscitation: 07155 Endotracheal Intubation, emergency Coding CPT Codes Pulmonary/Thoracic - Pulmonary and Thoracic: 51190 Bronchoscopy, reclear airway ([id number]) Resuscitation - Resuscitation: 65096 Endotracheal Intubation, emergency ([id number]) Additional Codes Date of Service (PG.[email or web address])
--- NOTE | 2025-01-17 08:16 | Critical Care Progress Note ---
Date of Service January 17, 2025 Assessment & Plan (1) Cardiac arrest: (2) Aspiration into respiratory tract: (3) Acute on chronic heart failure with preserved ejection fraction: (4) Pickwickian syndrome: (5) Pulmonary hypertension: (6) Chronic hypoxic respiratory failure, on home oxygen therapy: (7) Morbid obesity: Plan Impression: 69-year-old female with multiple medical issues including acute on chronic hypoxemic respiratory failure and hypercarbic respiratory failure with noncompliance with noninvasive positive pressure ventilation at home admitted with shortness of breath and fluid overload. She was diuresed and being treated with BiPAP but suffered an aspiration event 01/12/2025 resulting in cardiac arrest and prolonged PEA code. She is now in the ICU intubated and on an epinephrine infusion. 24-hour events: Patient is unable/unwilling to perform adequate pulmonary toilet. She remains with her left side down. Chest x-ray today demonstrated persistent atelectasis of the left lung. She is not coughing or clearing secretions in an effective manner. Bronchoscopy was warranted given persistent atelectasis of the left lung. We attempted bronchoscopy however the patient had some epistaxis in desaturations associated with the procedure necessitating intubation mechanical ventilation. Bronchoscopy was then completed after the patient was intubated on the ventilator. Recommendations: 1. Neurologic: Sedation with propofol. Will use fentanyl and Versed as needed. Neurologically never returned back to her baseline status. 2. Cardiovascular: PEA arrest likely secondary to aspiration event and hypoxemia. Pulmonary hypertension: Continue gentle diuresis 3. Pulmonary: Status post reintubation due to left lung atelectasis with persistent hypoxemic respiratory failure and inability to perform pulmonary toilet. Bronchoscopy was completed. The left mainstem bronchus continues to show significant narrowing associated with airway inflammation which hopefully should improve over time. Repeat bronchoscopy may be warranted. Given the patient's tenuous respiratory status as well as the fact that her mental status is not returned back to baseline and she may require additional bronchoscopic evaluation, would recommend tracheostomy at this point in time if ongoing supportive care is to be continued. Best case scenario will need long-term SNF if not LTAC. 4. ID: Completed 5-day course Zosyn. Follow fever curve, white blood cell count, 5. GI: Restart tube feeding 6. Renal: Kidney function stable. Continue ICU electrolyte replacement protocol. Diuresis as tolerated 7. Endocrine: Glycemic control per protocol. 8. Heme-onc: No current issues. DVT prophylaxis will be continued. Family updated by primary admitting service. CRITICAL CARE TIME - I have personally spent 50 minutes of critical care time in the direct management of this patient. This is a life/limb threatening event. This includes time spent evaluating patient, direct bedside care, chart review, placing orders, interpretation of diagnostic studies, discussion with consultants, patient, and family members, as well as other required patient management activities. This time is exclusive of all separately billable procedures, and teaching time and separate from and in addition to any other critical care service time. Admission and Anticipated Discharge Date Admission Date: January 09, 2025 Subjective Patient's obtunded. Review of Systems Review of Systems: Unobtainable due to cognitive status Physical Exam Constitutional: + morbidly obese and + disheveled Neck: trachea midline, no thyromegaly Respiratory: no labored breathing and no cough Auscultation: + rhonchi; no wheezes Cardiovascular: RRR, no murmur, no edema Gastrointestinal (Abdomen): normal bowel sounds, soft, nontender, no hepatosplenomegaly Musculoskeletal: Extremities: extremities normal to inspection Skin: no rashes, warm and dry Lymphatic: no cervical lymphadenopathy Results & Data Results & Data Vital Signs (Past 12 Hours) Vital Signs Temp Pulse Pulse Resp BP BP Pulse Ox 01/17/25 07:26 01/17/25 07:18 36.3 C L 79 16 165/73 H 94 01/17/25 05:57 36.2 C L 59 L 16 139/70 93 01/17/25 05:14 171/83 H 01/17/25 05:14 171/83 H 01/17/25 05:09 36.3 C L 82 19 100 01/17/25 05:00 36.3 C L 80 14 168/88 H 100 01/17/25 04:06 36.2 C L 70 9 L 92 01/17/25 04:00 137/56 L 01/17/25 03:57 36.2 C L 65 10 L 93 01/17/25 03:00 36.1 C L 72 12 94 01/17/25 02:39 66 17 96 01/17/25 02:01 167/88 H 01/17/25 02:01 167/88 H 01/17/25 01:53 36.2 C L 65 14 93 01/17/25 01:02 36.2 C L 92 H 17 96 01/17/25 01:02 169/92 H 01/17/25 00:01 162/74 H 01/17/25 00:01 162/74 H 01/17/25 00:00 73 01/16/25 23:59 74 16 99 01/16/25 23:54 143/81 H 01/16/25 23:53 36.3 C L 74 18 99 01/16/25 23:31 191/85 H 01/16/25 23:30 191/85 H 01/16/25 23:26 36.2 C L 78 15 97 01/16/25 23:20 36.4 C L 77 22 100 01/16/25 23:06 206/119 H 01/16/25 23:05 206/119 H 01/16/25 23:03 187/101 H 01/16/25 22:28 84 19 95 01/16/25 22:26 85 22 95 01/16/25 21:09 91 H 27 H 95 01/16/25 20:31 177/83 H 01/16/25 20:30 36.5 C 71 20 98 O2 Del Method O2 Flow Rate FiO2 01/17/25 07:26 BiPAP 01/17/25 07:18 BiPAP 50 01/17/25 05:57 01/17/25 05:14 01/17/25 05:14 01/17/25 05:09 01/17/25 05:00 01/17/25 04:06 01/17/25 04:00 01/17/25 03:57 01/17/25 03:00 01/17/25 02:39 50 01/17/25 02:01 01/17/25 02:01 01/17/25 01:53 01/17/25 01:02 01/17/25 01:02 01/17/25 00:01 01/17/25 00:01 01/17/25 00:00 01/16/25 23:59 01/16/25 23:54 01/16/25 23:53 01/16/25 23:31 01/16/25 23:30 01/16/25 23:26 01/16/25 23:20 01/16/25 23:06 01/16/25 23:05 01/16/25 23:03 01/16/25 22:28 50 01/16/25 22:26 Oxymask 5 01/16/25 21:09 01/16/25 20:31 01/16/25 20:30 Critical Care Results & Data Vital Signs (Past 12 Hours) Vital Signs Temp Pulse Pulse Resp BP BP Pulse Ox 01/17/25 09:42 01/17/25 09:15 36.5 C 59 L 19 97 01/17/25 09:15 135/73 01/17/25 09:15 135/73 01/17/25 09:15 135/73 01/17/25 09:15 135/73 01/17/25 09:15 135/73 01/17/25 09:10 112/62 01/17/25 09:10 112/62 01/17/25 09:10 112/62 01/17/25 09:05 116/68 01/17/25 09:00 117/67 01/17/25 09:00 36.5 C 56 L 18 99 01/17/25 08:55 117/66 01/17/25 08:54 36.5 C 58 L 18 94 01/17/25 08:50 104/65 01/17/25 08:50 104/65 01/17/25 08:50 104/65 01/17/25 08:45 36.5 C 56 L 18 94 01/17/25 08:45 95/59 L 01/17/25 08:40 132/77 01/17/25 08:40 132/77 01/17/25 08:40 132/77 01/17/25 08:39 36.5 C 62 18 99 01/17/25 08:35 103/70 01/17/25 08:35 103/70 01/17/25 08:30 52 L 19 98 01/17/25 08:30 85/50 L 01/17/25 08:25 79/49 L 01/17/25 08:20 85/51 L 01/17/25 08:15 36.4 C L 63 24 100 01/17/25 08:15 114/61 01/17/25 08:15 114/61 01/17/25 08:10 141/113 H 01/17/25 08:10 141/113 H 01/17/25 08:10 141/113 H 01/17/25 08:06 117/68 01/17/25 08:06 117/68 01/17/25 08:00 36.4 C L 98 H 18 90 01/17/25 07:57 216/117 H 01/17/25 07:57 216/117 H 01/17/25 07:51 144/99 H 01/17/25 07:51 144/99 H 01/17/25 07:51 144/99 H 01/17/25 07:46 162/76 H 01/17/25 07:45 36.3 C L 81 28 H 100 01/17/25 07:41 173/87 H 01/17/25 07:36 165/73 H 01/17/25 07:36 165/73 H 01/17/25 07:26 01/17/25 07:21 36.2 C L 90 14 01/17/25 07:18 36.3 C L 79 16 165/73 H 94 01/17/25 05:57 36.2 C L 59 L 16 139/70 93 01/17/25 05:14 171/83 H 01/17/25 05:14 171/83 H 01/17/25 05:09 36.3 C L 82 19 100 01/17/25 05:00 36.3 C L 80 14 168/88 H 100 01/17/25 04:06 36.2 C L 70 9 L 92 01/17/25 04:00 137/56 L 01/17/25 03:57 36.2 C L 65 10 L 93 01/17/25 03:00 36.1 C L 72 12 94 01/17/25 02:39 66 17 96 01/17/25 02:01 167/88 H 01/17/25 02:01 167/88 H 01/17/25 01:53 36.2 C L 65 14 93 01/17/25 01:02 36.2 C L 92 H 17 96 01/17/25 01:02 169/92 H 01/17/25 00:01 162/74 H 01/17/25 00:01 162/74 H 01/17/25 00:00 73 01/16/25 23:59 74 16 99 01/16/25 23:54 143/81 H 01/16/25 23:53 36.3 C L 74 18 99 01/16/25 23:31 191/85 H 01/16/25 23:30 191/85 H 01/16/25 23:26 36.2 C L 78 15 97 01/16/25 23:20 36.4 C L 77 22 100 01/16/25 23:06 206/119 H 01/16/25 23:05 206/119 H 01/16/25 23:03 187/101 H 01/16/25 22:28 84 19 95 01/16/25 22:26 85 22 95 O2 Del Method O2 Flow Rate FiO2 01/17/25 09:42 Mechanical Vent 01/17/25 09:15 01/17/25 09:15 01/17/25 09:15 01/17/25 09:15 01/17/25 09:15 01/17/25 09:15 01/17/25 09:10 01/17/25 09:10 01/17/25 09:10 01/17/25 09:05 01/17/25 09:00 01/17/25 09:00 01/17/25 08:55 01/17/25 08:54 01/17/25 08:50 01/17/25 08:50 01/17/25 08:50 01/17/25 08:45 01/17/25 08:45 01/17/25 08:40 01/17/25 08:40 01/17/25 08:40 01/17/25 08:39 01/17/25 08:35 01/17/25 08:35 01/17/25 08:30 60 01/17/25 08:30 01/17/25 08:25 01/17/25 08:20 01/17/25 08:15 01/17/25 08:15 01/17/25 08:15 01/17/25 08:10 01/17/25 08:10 01/17/25 08:10 01/17/25 08:06 01/17/25 08:06 01/17/25 08:00 01/17/25 07:57 01/17/25 07:57 01/17/25 07:51 01/17/25 07:51 01/17/25 07:51 01/17/25 07:46 01/17/25 07:45 01/17/25 07:41 01/17/25 07:36 01/17/25 07:36 01/17/25 07:26 BiPAP 01/17/25 07:21 01/17/25 07:18 BiPAP 50 01/17/25 05:57 01/17/25 05:14 01/17/25 05:14 01/17/25 05:09 01/17/25 05:00 01/17/25 04:06 01/17/25 04:00 01/17/25 03:57 01/17/25 03:00 01/17/25 02:39 50 01/17/25 02:01 01/17/25 02:01 01/17/25 01:53 01/17/25 01:02 01/17/25 01:02 01/17/25 00:01 01/17/25 00:01 01/17/25 00:00 01/16/25 23:59 01/16/25 23:54 01/16/25 23:53 01/16/25 23:31 01/16/25 23:30 01/16/25 23:26 01/16/25 23:20 01/16/25 23:06 01/16/25 23:05 01/16/25 23:03 01/16/25 22:28 50 01/16/25 22:26 Oxymask 5 Lab & Micro Results (Past 24 Hours) No Data to Display Na 140 mmol/L (136-145) 01/17/25 K 4.1 mmol/L (3.5-5.1) 01/17/25 Cl 100 mmol/L (98-107) 01/17/25 CO2 36 mmol/L (21-32) H 01/17/25 Anion Gap 4 (3-11) 01/17/25 BUN 44 mg/dl (6-23) H 01/17/25 Creatinine 1.18 mg/dl (0.6-1.2) 01/17/25 BUN/Creatinine Ratio 37.3 (10-20) H 01/17/25 Glu 109 mg/dl (70-99(Fasting)) H 01/17/25 Ca 8.3 mg/dl (8.6-10.3) L 01/17/25 Phosphorus Level 3.7 mg/dl (2.5-4.9) 01/17/25 Mg 1.9 mg/dl (1.7-2.4) 01/17/25 04:45 Calcium Level 8.3 mg/dl (8.6-10.3) L 01/17/25 04:45 Diagnostic Findings (Past 24 Hours) Chest X-Ray 01/17/25 06:00 EXAM: XR chest 1V portable CLINICAL HISTORY: eval lung guerrero/opacifications TECHNIQUE: An X-ray image of the chest is obtained in AP projection. COMPARISON: 01/16/2025 CR. FINDINGS: Pulmonary Parenchyma: Unchanged left lung whitening, suggesting total collapse/consolidation with or without pleural effusion Interval demonstration of right lower zone patchy opacity. No evidence of pleural effusion or pleural thickening. Left central line noted in place. unchanged Heart and Mediastinum: Smooth tracheal narrowing could be respiration related clinical correlation is needed,, Heart size is limited on this projection. No mediastinal widening or masses. No hilar or mediastinal lymphadenopathy. Bony Thorax: Bony thorax appears intact without fractures or deformities. Soft Tissues: Soft tissues overlying the chest wall are unremarkable. IMPRESSION: 1. Unchanged left lung whitening, suggesting total collapse/consolidation with or without pleural effusion. 2. Interval demonstration of right lower zone patchy opacity. could be due to infection or edema. Electronically signed by Jacky Villasenor 01-17-2025 08:49 AM Chest X-Ray 01/17/25 08:23 Technique: Four frontal views of the chest were obtained Comparison is made to the prior examination obtained earlier today Findings: There is improved aeration of the left lung with a decreased left pleural effusion, now moderate to large. There is worsened interstitial prominence in the right lung that may be due to pulmonary edema. The heart is enlarged. No definite right pleural effusion or pneumothorax is seen. There is a new endotracheal tube with its tip 3.6 cm above the suki. There is an unchanged left subclavian central line with its tip in the mid SVC. There is a new nasogastric tube with its tip within the stomach Impression: 1. Moderate to large left pleural effusion, decreased in size 2. Worsened pulmonary edema 3. Unchanged cardiomegaly 4. New endotracheal tube and nasogastric tube in satisfactory position ACT 112: Positive. There are findings on this exam that require communication between the performing entity and the patient following Patient Test Result Information Act ([place] ACT 112) guidelines. Electronically signed by Armando Woodard 01-17-2025 08:53 AM I & O Totals 24 Hours 01/16/25 01/17/25 01/18/25 06:59 06:59 06:59 Intake Total 350.00 / 350.00 200 / 200 100 / 100 Output Total 2410 / 2410 3847 / 3847 Balance -2060.00 / -2060.00 -3647 / -3647 100 / 100 Cumulative 01/08/25 21:36 thru 01/17/25 08:19 Intake Total 5115.521 Output Total 87669 Balance -7111.479 RT Ventilator Mngmt (Last Documented) Ventilator Ordered Settings Ventilator Support Mode Assist Control 01/17/25 09:24 Respiratory Rate 19 01/17/25 09:15 Ventilator Tidal Volume 450 01/17/25 08:30 Setting Minute Ventilation 8.1 01/17/25 08:30 Ventilator Positive Pressure 10 01/14/25 07:27 Support Setting Positive End Expiratory 10 01/17/25 08:30 Pressure Fraction of Inspired Oxygen 60 01/17/25 08:30 Peak Inspiratory Flow 40 01/17/25 08:30 Machine Comment RR changed to 16 after recent ABG 01/15/25 05:02 results Ventilator - PT Measurements Respiratory Rate 19 Exhaled Tidal Volume 450 Minute Ventilation 8.1 Peak Inspiratory Airway 33 Pressure Plateau Pressure 18.0 Respiratory Cycle Inspiratory: 1:2.7 Expiratory Ratio Inspiratory Phase Time 0.90 End-Tidal CO2 44 Static Lung Compliance 56.25 Dynamic Lung Compliance 19.57 Normal Static Lung Compliance 45.00 Patient Measurements Comment extubated to bipap 13/07 Coding Level of Care Code 99416 CRITICAL CARE 1ST 30-74M Diagnoses Cardiac arrest I46.9 Aspiration into respiratory tract T17.908A Acute on chronic heart failure with preserved ejection fraction I50.33 Pickwickian syndrome E66.2 Pulmonary hypertension I27.20 Chronic hypoxic respiratory failure, on home oxygen therapy J96.11; Z99.81 Morbid obesity E66.01
--- NOTE | 2025-01-17 08:50 | XRay Report ---
EXAM: XR chest 1V portable CLINICAL HISTORY: eval lung guerrero/opacifications TECHNIQUE: An X-ray image of the chest is obtained in AP projection. COMPARISON: 01/16/2025 CR. FINDINGS: Pulmonary Parenchyma: Unchanged left lung whitening, suggesting total collapse/consolidation with or without pleural effusion Interval demonstration of right lower zone patchy opacity. No evidence of pleural effusion or pleural thickening. Left central line noted in place. unchanged Heart and Mediastinum: Smooth tracheal narrowing could be respiration related clinical correlation is needed,, Heart size is limited on this projection. No mediastinal widening or masses. No hilar or mediastinal lymphadenopathy. Bony Thorax: Bony thorax appears intact without fractures or deformities. Soft Tissues: Soft tissues overlying the chest wall are unremarkable. IMPRESSION: 1. Unchanged left lung whitening, suggesting total collapse/consolidation with or without pleural effusion. 2. Interval demonstration of right lower zone patchy opacity. could be due to infection or edema. Electronically signed by Jacky Villasenor 01-17-2025 08:49 AM
--- NOTE | 2025-01-17 08:53 | XRay Report ---
Technique: Four frontal views of the chest were obtained Comparison is made to the prior examination obtained earlier today Findings: There is improved aeration of the left lung with a decreased left pleural effusion, now moderate to large. There is worsened interstitial prominence in the right lung that may be due to pulmonary edema. The heart is enlarged. No definite right pleural effusion or pneumothorax is seen. There is a new endotracheal tube with its tip 3.6 cm above the suki. There is an unchanged left subclavian central line with its tip in the mid SVC. There is a new nasogastric tube with its tip within the stomach Impression: 1. Moderate to large left pleural effusion, decreased in size 2. Worsened pulmonary edema 3. Unchanged cardiomegaly 4. New endotracheal tube and nasogastric tube in satisfactory position ACT 112: Positive. There are findings on this exam that require communication between the performing entity and the patient following Patient Test Result Information Act ([place] ACT 112) guidelines. Electronically signed by Armando Woodard 01-17-2025 08:53 AM
[2025-01-17] MEDS: RAPID SEQUENCE INDUCTION BAG ONE (09:05)
[2025-01-17] MEDS: fentaNYL citrate PF 100 MCG/2 ML VIAL ONE (09:06)
[2025-01-17] MEDS: OXYMETAZOLINE 0.05% 30 ML BTL STA (09:08)
[2025-01-17] MEDS: MIDAZOLAM HCL 5 MG/ML 2ML VIAL IV STA (09:09)
[2025-01-17] MEDS: MoRPHine SULFATE 2 MG/ML CARP IV STA (09:10)
[2025-01-17] MEDS ORDERED: STAT IV Infusion **Titration per Protocol STA (09:11)
[2025-01-17] MEDS: PROPOFOL BOLUS FROM BAG IV PRN (09:15)
[2025-01-17] MEDS: propofoL 1,000 MG/100 ML VIAL IV SCH (09:15)
[2025-01-17] MEDS: PROPOFOL IV EMULSION 10 MG/ML 100 ML VIAL IV ONE (10:32)
[2025-01-17] MEDS: SODIUM CHLORIDE 0.65% NA SOLN 45 ML (OCEAN) ONE (10:32)
[2025-01-17] MEDS ORDERED: PEPTAMEN INTENSE VHP 1.0 CAL 1,000 ML BAG OG SCH (10:45)
[2025-01-17] MEDS: TUBE FEEDING WATER FLUSH OG SCH (13:09)
[2025-01-17 13:42] LABS: iSTAT Allen Test Pass; iSTAT Art Bld Gas pCO2 Correct 42 mmHg (35-46); iSTAT Art Bld Gas pH Corrected 7.486 (7.35-7.45); iSTAT Arterial Blood Gas HCO3 32 meg/L (19-24); iSTAT Arterial Blood Gas pCO2 44 mmHg (35-46); iSTAT Arterial Blood Gas pH 7.47 (7.35-7.45); iSTAT Arterial Blood Gas pO2 80 mmHg (80-95); iSTAT Arterial Blood Gas pO2 C 75; iSTAT Carbon Dioxide 33 mmol/L (24-31); iSTAT FiO2 50 %; iSTAT Hematocrit 35 % (37-47); iSTAT Hemoglobin 11.9 g/dl (12.0-16.0); iSTAT Potassium 3.8 mmol/L (3.3-5.0); iSTAT Sample Type Arterial; iSTAT Site R Radial; iSTAT Sodium 138 mmol/L (135-144); iSTAT SpO2 98
--- NOTE | 2025-01-17 17:15 | Hospitalist Progress Note ---
Date of Service January 17, 2025 Assessment & Plan (1) Acute and chronic respiratory failure with hypercapnia: Plan: Cardiopulmonary arrest secondary to possible aspiration -remains intubated -weaned off pressors -MRI head unrevealing for anoxic brain injury; exam improving overall -extubated -continues to have shallow breathing on exam, on nasal cannula Plan: -appreciate critical care consult -continue supportive care -now on nasal cannula -will check echo and repeat head imaging pending clinical course -per patient expressed wishes would like friend Michelle and son Anmol to make decisions jointly on her behalf, and would like to be full code at this time -see above, next of kin Anmol would like to proceed with tracheostomy and likely PEG placement Acute on chronic hypoxemic, hypercapnic respiratory failure Secondary to HFpEF secondary to missed home medications, uncontrolled BP Underlying pulmonary hypertension hx chronic respiratory failure secondary to COPD/RLD on home O2 OHS on CPAP -maintained on Lasix IV -Fish Rod Maker and Bell Spinner Sousaphones on board Hypertensive Urgency -Carvedilol 3.125 mg BID R lower leg wounds -no signs of infection -continue daily wound care -tapper hand consulted Abnormal CT scan, chest: -per video presentation operator: -Radiology noted a mild left basal pleural thickening and mild dependent reticular and ill-defined groundglass opacities in the basal segments of the left lower lobe. I suspect these are likely related to atelectasis and small chronic effusion. Recommend a follow-up CT chest in about 3 months. Troponin elevation secondary to above hyperlipidemia, on statin Rx DM2 insulin requiring, suboptimal control as of recent hemoglobin A1c of 8.25 September 2024 CRI, creatinine mildly increased, monitor closely anxiety/mood disorder, at baseline past tobacco abuse I spent a total of 45 minutes in direct patient care, including [id number] time with the patient and/or family, reviewing medical records, ordering and reviewing diagnostic tests, and coordinating care with other healthcare providers. This time includes: history taking, physical examination, medical decision making, counseling, ECG interpretation, imaging interpretation, lab interpretation, orders, and education, excluding time spent in the performance of separately billed services. I spent a total of 45 minutes providing advanced care planning to the patient and/or family, including [id number] time discussing the patient's health status, prognosis, and treatment options. This time includes specific activities such as: discussing advance directives, goals of care, prognostication, and end-of-life planning. Admission and Anticipated Discharge Date Admission Date: January 09, 2025 Subjective Patient seen and examined at bedside. Patient intubated and sedated. Advanced Care Plannin minutes spent discussing goals and values with patient TAD Corea, brother Avinash, friend Michelle. had numerous phone calls today with brothkumar Da Silva and son Anmol who is the next of kin. Thus the patient's critical condition, including reintubation, bronchoscopy, left lung collapse. Discussed that the next step that we will be involved in this process will be a tracheostomy and likely PEG tube placement. This is because patient failed extubation from several days ago and likely needs a longer tracheostomy weaning plan. Initially brother Avinash wanted me to discuss this with friend Michelle, with Anmol's approval who is the next of kin. Discussed case with Michelle, who understands the situation. Discussed risks and benefits of procedure with Anmol, including likely complications including infection risk, aspiration events, fistula formation, hemorrhage, other possible events. Discussed benefit would be potential for a slow wean over time for improved quality of life. Jesus Corea would like to proceed with a tracheostomy and PEG tube placement. Review of Systems Review of Systems: -unable to answer due to mental status Physical Exam Physical Exam: Gen: NAD, RASS -1 HEENT: NCAT, EOMI, not icteric. External ears normal. No rhinorrhea. Moist mucous membranes. Neck: Supple, full range of motion, no observable masses, No meningeal sign. Lungs: rhonchi noted bilaterally, worse on right CV: RRR, no edema. Abdomen: Soft, nondistended, No rebound tenderness. MSK: No joint swelling, no redness. Skin: No rashes, petechiae, lesions. Normal color per patient. Neuro: moving all 4 extremities Results & Data Results & Data Vital Signs (Past 12 Hours) Vital Signs Temp Pulse Resp BP Pulse Ox O2 Del Method FiO2 01/17/25 16:33 50 L 01/17/25 16:00 40 01/17/25 15:28 68 15 96 40 01/17/25 15:23 36.9 C 01/17/25 15:03 54 L 13 97 01/17/25 15:00 155/69 H 01/17/25 15:00 155/69 H 01/17/25 15:00 155/69 H 01/17/25 14:54 54 L 15 95 01/17/25 14:30 51 L 11 L 97 01/17/25 14:30 145/62 H 01/17/25 14:30 145/62 H 01/17/25 14:30 145/62 H 01/17/25 14:30 145/62 H 01/17/25 14:15 117/56 L 01/17/25 14:15 49 L 15 97 01/17/25 14:09 49 L 15 97 01/17/25 14:00 131/62 01/17/25 14:00 131/62 01/17/25 14:00 131/62 01/17/25 13:48 50 L 15 98 01/17/25 13:45 50 L 15 97 01/17/25 13:45 129/60 01/17/25 13:45 129/60 01/17/25 13:45 129/60 01/17/25 13:30 56 L 16 95 01/17/25 13:30 131/92 01/17/25 13:30 131/92 01/17/25 13:15 151/65 H 01/17/25 13:15 151/65 H 01/17/25 13:15 151/65 H 01/17/25 13:15 151/65 H 01/17/25 13:15 151/65 H 01/17/25 13:12 51 L 16 100 01/17/25 13:09 50 L 16 100 01/17/25 13:00 136/67 01/17/25 13:00 136/67 01/17/25 13:00 136/67 01/17/25 12:57 51 L 16 100 01/17/25 12:45 137/70 01/17/25 12:45 137/70 01/17/25 12:45 137/70 01/17/25 12:24 51 L 19 100 01/17/25 12:15 50 L 19 100 01/17/25 12:15 114/55 L 01/17/25 12:06 52 L 17 100 01/17/25 12:01 136/66 01/17/25 11:57 52 L 17 98 01/17/25 11:45 50 L 16 100 01/17/25 11:45 115/56 L 01/17/25 11:45 115/56 L 01/17/25 11:27 36.4 C L 52 L 15 100 01/17/25 11:15 127/55 L 01/17/25 10:57 58 L 16 83 L 01/17/25 10:30 54 L 16 97 50 01/17/25 09:42 Mechanical Vent 01/17/25 09:15 36.5 C 59 L 19 97 01/17/25 09:15 135/73 01/17/25 09:15 135/73 01/17/25 09:15 135/73 01/17/25 09:15 135/73 01/17/25 09:15 135/73 01/17/25 09:10 112/62 01/17/25 09:10 112/62 01/17/25 09:10 112/62 01/17/25 09:05 116/68 01/17/25 09:00 117/67 01/17/25 09:00 36.5 C 56 L 18 99 01/17/25 08:55 117/66 01/17/25 08:54 36.5 C 58 L 18 94 01/17/25 08:50 104/65 01/17/25 08:50 104/65 01/17/25 08:50 104/65 01/17/25 08:45 36.5 C 56 L 18 94 01/17/25 08:45 95/59 L 01/17/25 08:40 132/77 01/17/25 08:40 132/77 01/17/25 08:40 132/77 01/17/25 08:39 36.5 C 62 18 99 01/17/25 08:35 103/70 01/17/25 08:35 103/70 01/17/25 08:30 52 L 19 98 60 01/17/25 08:30 85/50 L 01/17/25 08:25 79/49 L 01/17/25 08:20 85/51 L 01/17/25 08:15 36.4 C L 63 24 100 01/17/25 08:15 114/61 01/17/25 08:15 114/61 01/17/25 08:10 141/113 H 01/17/25 08:10 141/113 H 01/17/25 08:10 141/113 H 01/17/25 08:06 117/68 01/17/25 08:06 117/68 01/17/25 08:00 36.4 C L 98 H 18 90 01/17/25 07:57 216/117 H 01/17/25 07:57 216/117 H 01/17/25 07:51 144/99 H 01/17/25 07:51 144/99 H 01/17/25 07:51 144/99 H 01/17/25 07:46 162/76 H 01/17/25 07:45 36.3 C L 81 28 H 100 01/17/25 07:41 173/87 H 01/17/25 07:36 165/73 H 01/17/25 07:36 165/73 H 01/17/25 07:26 BiPAP 01/17/25 07:21 36.2 C L 90 14 01/17/25 07:18 36.3 C L 79 16 165/73 H 94 BiPAP 50 01/17/25 06:49 68 01/17/25 05:57 36.2 C L 59 L 16 139/70 93 01/17/25 05:14 171/83 H 01/17/25 05:14 171/83 H 01/17/25 05:09 36.3 C L 82 19 100 Laboratory Results -personally reviewed, creatinine downtrended Medications Administered Acetaminophen (Acetaminophen 325 Mg Tab) 650 mg PO QID PRN PRN Reason: pain/fever Stop: 02/08/25 04:44 Last Admin: 01/11/25 21:17 Dose: 650 mg Documented By: art studio teacher: 01/10/25 23:34 Dose: 650 mg Documented By: Admin: 01/10/25 09:14 Dose: 650 mg Documented By: Admin: 01/09/25 22:13 Dose: 650 mg Documented By: VICKIE Cyanocobalamin (Cyanocobalamin (B-12) 500 Mcg Tablet) 1,000 mcg PO DAILY ALBERTO Stop: 02/08/25 08:59 Last Admin: 01/17/25 10:29 Dose: 1,000 mcg Documented By: Admin: 01/16/25 09:11 Dose: Not Given Documented By: Admin: 01/15/25 09:23 Dose: Not Given Documented By: Admin: 01/14/25 07:46 Dose: 1,000 mcg Documented By: Admin: 01/13/25 07:50 Dose: 1,000 mcg Documented By: Admin: 01/12/25 10:13 Dose: Not Given Documented By: Admin: 01/11/25 08:24 Dose: 1,000 mcg Documented By: Admin: 01/10/25 08:47 Dose: 1,000 mcg Documented By: Admin: 01/09/25 09:44 Dose: 1,000 mcg Documented By: COLLIN Furosemide (Furosemide Inj 20 Mg/2 Ml Vial) 20 mg IV DAILY ALBERTO Stop: 02/14/25 14:44 Last Admin: 01/17/25 10:31 Dose: 20 mg Documented By: Admin: 01/16/25 08:58 Dose: 20 mg Documented By: Admin: 01/15/25 14:43 Dose: 20 mg Documented By: CONCHA Gabapentin (Gabapentin 100 Mg Cap) 200 mg PO HS ALBERTO Stop: 02/11/25 08:59 Last Admin: 01/16/25 20:16 Dose: Not Given Documented By: Admin: 01/15/25 20:26 Dose: Not Given Documented By: [id number] Admin: 01/14/25 20:08 Dose: 200 mg Documented By: BIMAL Heparin Sodium (Porcine) (Heparin Sod 5,000 Unit/0.5 Ml Vial) 5,000 units SQ Q8H ALBERTO Stop: 02/08/25 05:59 Last Admin: 01/17/25 15:19 Dose: 5,000 units Documented By: Admin: 01/17/25 06:16 Dose: 5,000 units Documented By: ESRosa Isela Admin: 01/16/25 21:32 Dose: 5,000 units Documented By: Admin: 01/16/25 14:25 Dose: 5,000 units Documented By: Admin: 01/16/25 05:24 Dose: 5,000 units Documented By: [id number] Admin: 01/15/25 21:10 Dose: 5,000 units Documented By: [id number] Admin: 01/15/25 14:43 Dose: 5,000 units Documented By: Admin: 01/15/25 05:53 Dose: 5,000 units Documented By: Admin: 01/14/25 22:37 Dose: 5,000 units Documented By: Admin: 01/14/25 15:35 Dose: 5,000 units Documented By: Admin: 01/14/25 05:49 Dose: 5,000 units Documented By: Admin: 01/13/25 21:21 Dose: 5,000 units Documented By: Admin: 01/13/25 13:50 Dose: 5,000 units Documented By: Admin: 01/13/25 05:45 Dose: 5,000 units Documented By: Admin: 01/12/25 21:48 Dose: 5,000 units Documented By: Admin: 01/12/25 14:24 Dose: 5,000 units Documented By: Admin: 01/12/25 05:44 Dose: 5,000 units Documented By: art studio teacher: 01/11/25 21:19 Dose: 5,000 units Documented By: art studio teacher: 01/11/25 14:08 Dose: 5,000 units Documented By: CM(2) Admin: 01/11/25 06:23 Dose: 5,000 units Documented By: Admin: 01/10/25 21:24 Dose: 5,000 units Documented By: Admin: 01/10/25 13:18 Dose: 5,000 units Documented By: Admin: 01/10/25 06:17 Dose: 5,000 units Documented By: Admin: 01/09/25 22:14 Dose: 5,000 units Documented By: Admin: 01/09/25 15:14 Dose: 5,000 units Documented By: Admin: 01/09/25 06:21 Dose: 5,000 units Documented By: MIKE Hydralazine HCl (Hydralazine Hcl 20 Mg/Ml Vial) 5 mg IV Q4H PRN PRN Reason: SBP > 185 and/or DBP >100 Stop: 02/15/25 18:43 Last Admin: 01/16/25 23:08 Dose: 5 mg Documented By: ESG Promethazine HCl (Phenergan) 6.25 mg in 50.25 mls @ 201 mls/hr IV Q6H PRN PRN Reason: Nausea And Vomiting Stop: 02/08/25 04:44 Last Infusion: 01/10/25 09:50 Dose: Infused Documented By: Admin: 01/10/25 09:20 Dose: 201 mls/hr Documented By: OO Propofol (Diprivan) 1,000 mg in 100 mls @ 13.8 mls/hr IV .Q7H15M ALBERTO; Protocol Stop: 01/20/25 09:14 Last Admin: 01/17/25 15:19 Dose: 20 mcg/kg/min, 13.8 mls/hr Documented By: ANITA Co-signed By: MIGUELITO(2) Titration: 01/17/25 15:19 Dose: Infused Documented By: ANITA Co-signed By: MIGUELITO(2) Titration: 01/17/25 10:00 Dose: 15 mcg/kg/min, 10.4 mls/hr Documented By: Titration: 01/17/25 09:30 Dose: 10 mcg/kg/min, 6.9 mls/hr Documented By: Admin: 01/17/25 09:15 Dose: 5 mcg/kg/min, 3.5 mls/hr Documented By: ANITA Co-signed By: RAQUEL Insulin Aspart (Insulin Aspart Per Unit Charge) 0 units SC Q6 [facility] Stop: 02/14/25 00:00 Last Admin: 01/17/25 13:09 Dose: Not Given Documented By: Admin: 01/17/25 06:20 Dose: Not Given Documented By: Admin: 01/16/25 23:49 Dose: 1 units Documented By: MIGUELITO Co-signed By: RAHEEL Admin: 01/16/25 18:02 Dose: Not Given Documented By: Admin: 01/16/25 12:39 Dose: Not Given Documented By: JONH Insulin Glargine (Lantus Per Unit Charge) 5 units SQ HS [facility] Stop: 02/08/25 20:59 Last Admin: 01/16/25 21:32 Dose: 5 units Documented By: MIGUELITO Co-signed By: RAHEEL Admin: 01/15/25 21:10 Dose: 5 units Documented By: [id number] Co-signed By: MIGUELITO Admin: 01/14/25 20:24 Dose: 5 units Documented By: BIMAL Co-signed By: CRISPIN Admin: 01/13/25 20:45 Dose: 5 units Documented By: AMS Co-signed By: SG Admin: 01/12/25 21:47 Dose: 5 units Documented By: AMS Co-signed By: SG Admin: 01/11/25 21:17 Dose: 5 units Documented By: MED Co-signed By: LINDA Admin: 01/10/25 21:25 Dose: 5 units Documented By: VICKIE Co-signed By: TOMMY Admin: 01/09/25 22:13 Dose: 5 units Documented By: VICKIE Co-signed By: HELIO Miscellaneous (Icu Electrolyte Replacement Protocol) 1 each N/A BID@06,18 ALBERTO; Protocol Stop: 01/19/25 17:59 Last Admin: 01/17/25 06:17 Dose: 1 each Documented By: Admin: 01/16/25 18:02 Dose: Not Given Documented By: Admin: 01/16/25 05:58 Dose: 1 each Documented By: [id number] Admin: 01/15/25 15:06 Dose: Not Given Documented By: MIGUELITO(2) Admin: 01/15/25 05:56 Dose: Not Given Documented By: Admin: 01/14/25 18:11 Dose: 1 each Documented By: Admin: 01/14/25 06:16 Dose: Not Given Documented By: Admin: 01/13/25 20:15 Dose: Not Given Documented By: Admin: 01/13/25 05:23 Dose: 1 each Documented By: Admin: 01/12/25 22:10 Dose: Not Given Documented By: BIMAL Multivitamins/Minerals (Multi Vit W/Minerals Liquid 15 Ml Udc) 15 ml NG QAM [facility] Stop: 02/14/25 08:59 Last Admin: 01/17/25 10:30 Dose: 15 ml Documented By: Admin: 01/16/25 09:12 Dose: Not Given Documented By: Admin: 01/15/25 09:23 Dose: Not Given Documented By: CONCHA Ondansetron HCl (Ondansetron Inj 2 Mg/Ml 2 Ml Vial) 4 mg IV Q6H PRN PRN Reason: Nausea And Vomiting Stop: 02/15/25 14:32 Last Admin: 01/16/25 14:38 Dose: 4 mg Documented By: JONH Propofol (Propofol Bolus From Bag) 20 mg IV Q5M PRN PRN Reason: Sedation Stop: 01/20/25 09:10 Last Admin: 01/17/25 09:15 Dose: 20 mg Documented By: ANITA Co-signed By: MIGUELITO(2) Sterile Water (Tube Feeding Water Flush) 30 ml OG Q4H ALBERTO Stop: 02/16/25 11:29 Last Admin: 01/17/25 15:19 Dose: 30 ml Documented By: Admin: 01/17/25 13:09 Dose: 30 ml Documented By: ANITA Vitamin D (Cholecalciferol 25 Mcg (1000 Units) Tab) 25 mcg PO DAILY ALBERTO Stop: 02/08/25 08:59 Last Admin: 01/17/25 10:29 Dose: 25 mcg Documented By: Admin: 01/16/25 09:11 Dose: Not Given Documented By: Admin: 01/15/25 09:23 Dose: Not Given Documented By: Admin: 01/14/25 07:45 Dose: 25 mcg Documented By: Admin: 01/13/25 07:50 Dose: 25 mcg Documented By: Admin: 01/12/25 10:13 Dose: Not Given Documented By: Admin: 01/11/25 08:24 Dose: 25 mcg Documented By: Admin: 01/10/25 08:48 Dose: 25 mcg Documented By: OScarlett Admin: 01/09/25 09:44 Dose: 25 mcg Documented By: COLLIN
[2025-01-18 04:44] LABS: Basophils # (auto) 0.02 K/uL (0.00-0.20); Basophils % (auto) 0.3 %; Eosinophils # (auto) 0.19 K/uL (0.00-0.50); Hemoglobin 10.5 g/dl (12.0-16.0); Immature Granulocytes # (auto) 0.02 K/uL (0.01-0.20); Immature Granulocytes % (auto) 0.3 %; Lymphocytes # (auto) 0.83 K/uL (1.20-3.40); Lymphocytes % (auto) 13.1 %; Mean Corpuscular Hemoglobin 25.6 pg (25.0-34.0); Mean Corpuscular Volume 85.4 fL (80.0-100.0); Mean Platelet Volume 9.6 fL (9.4-12.4); Monocytes # (auto) 0.65 K/uL (0.11-0.59); Monocytes % (auto) 10.3 %; Neutrophils # (auto) 4.61 K/uL (1.40-6.50); Platelet Count 144 K/uL (130-400); RDW Coefficient of Variation 16.1 % (11.5-14.5); RDW Standard Deviation 50.6 fL (36.4-46.3); White Blood Count 6.32 K/ul (4.8-10.8)
[2025-01-18 04:58] LABS: Creatinine Clr Calc Pharmacy 56.6 ml/min; Magnesium 2.1 mg/dl (1.7-2.4); Potassium 3.7 mmol/L (3.5-5.1)
[2025-01-18 05:35] LABS: iSTAT Allen Test Pass; iSTAT Art Bld Gas pCO2 Correct 48 mmHg (35-46); iSTAT Art Bld Gas pH Corrected 7.457 (7.35-7.45); iSTAT Arterial Blood Gas HCO3 34 meg/L (19-24); iSTAT Arterial Blood Gas pCO2 48 mmHg (35-46); iSTAT Arterial Blood Gas pH 7.46 (7.35-7.45); iSTAT Arterial Blood Gas pO2 65 mmHg (80-95); iSTAT Arterial Blood Gas pO2 C 65; iSTAT Carbon Dioxide 35 mmol/L (24-31); iSTAT FiO2 40 %; iSTAT Hematocrit 35 % (37-47); iSTAT Hemoglobin 11.9 g/dl (12.0-16.0); iSTAT Potassium 3.7 mmol/L (3.3-5.0); iSTAT Sample Type Arterial; iSTAT Site L Radial; iSTAT Sodium 138 mmol/L (135-144); iSTAT SpO2 97
[2025-01-18] MEDS: POTASSIUM CHLORIDE 20 MEQ/15 ML UDC NG SCH (05:46)
--- NOTE | 2025-01-18 08:07 | XRay Report ---
EXAM: XR chest 1V portable CLINICAL HISTORY: evaluate lung guerrero/opacifications TECHNIQUE: An X-ray image of the chest is obtained in AP projection. COMPARISON: 01/17/2025 FINDINGS: Pulmonary Parenchyma: Interval progression in left lung opacity, suggesting total collapse/consolidation with pleural effusion Interval demonstration of right lower zone patchy opacity. No evidence of right sided pleural effusion or pleural thickening. Left central line noted in place. unchanged. ETT in situ, tip 3 cm above suki. NG tube inserted (distal limb) below left hemidiaphragm. Heart and Mediastinum: Heart size is limited on this projection. Bony Thorax: Bony thorax appears intact without fractures or deformities. Soft Tissues: Soft tissues overlying the chest wall are unremarkable. IMPRESSION: 1. Interval progression in left lung opacity, suggesting total collapse/consolidation with pleural effusion 2. Interval redemonstration of right lower zone patchy opacity. Could be due to infection or edema. 3. Left central line noted in place. unchanged. 4. ETT in situ, tip 3 cm above suki. 5. NG tube inserted (distal limb) below left hemidiaphragm. Electronically signed by Jacky Villasenor 01-18-2025 08:06 AM
--- NOTE | 2025-01-18 08:21 | Critical Care Progress Note ---
Date of Service January 18, 2025 Assessment & Plan (1) Cardiac arrest: (2) Aspiration into respiratory tract: (3) Acute on chronic heart failure with preserved ejection fraction: (4) Pickwickian syndrome: (5) Pulmonary hypertension: (6) Chronic hypoxic respiratory failure, on home oxygen therapy: (7) Morbid obesity: Plan Impression: 69-year-old female with multiple medical issues including acute on chronic hypoxemic respiratory failure and hypercarbic respiratory failure with noncompliance with noninvasive positive pressure ventilation at home admitted with shortness of breath and fluid overload. She was diuresed and being treated with BiPAP but suffered an aspiration event 01/12/2025 resulting in cardiac arrest and prolonged PEA code. She is now in the ICU intubated and on an epinephrine infusion. 24-hour events: Patient required reintubation for acute hypoxic respiratory failure and recurrent mucoid impaction of the lung. There have been multiple family discussions with hospitalist medicine at this junction plan is to proceed with tracheostomy and likely PEG tube to facilitate slow wean over time to optimize timeline for improved quality of life Recommendations: 1. Neurologic: Sedation with propofol. Will use fentanyl and Versed as needed. Neurologically never returned back to her baseline status. - Tracheostomy should allow for decreased use of sedatives which are negatively associated with neurologic recovery, continue supportive care 2. Cardiovascular: PEA arrest likely secondary to aspiration event and hypoxemia. Pulmonary hypertension: Unclear baseline dry weight: Down 8 kg from presentation - Goal to remain net negative: Appearance of mild contraction as bicarb elevating will give Diamox 500 mg twice today, creatinine improved suspect there was significant volume overload on presentation 3. Pulmonary: Status post reintubation due to left lung atelectasis with persistent hypoxemic respiratory failure and inability to perform pulmonary toil et. Bronchoscopy 01/13, 01/14, 01/17. The left mainstem bronchus continues to show significant narrowing associated with airway inflammation which hopefully should improve over time. Repeat bronchoscopy may be warranted. Given the patient's tenuous respiratory status and small respiratory reserve as well as the fact that her mental status is not returned back to baseline and she will likely require additional bronchoscopic evaluation. Tracheostomy would be an option to most safely allow repeat bronchoscopic evaluation and clearance of secretions if ongoing supportive care is to be continued. I am concerned her care trajectory would include need for long-term SNF if not LTAC. 4. ID: Completed 5-day course Zosyn. Follow fever curve, white blood cell count; given history: at risk for recurrent aspiration events and recurrent aspiration pneumonitis 5. GI: Restart tube feeding for supportive care 6. Renal: Kidney function stable. Continue ICU electrolyte replacement protocol. 7. Endocrine: Glycemic control per protocol. 8. Heme-onc: No current issues. DVT prophylaxis will be continued. Patient's BMI 44.3: Class III obesity, risk factor associated with permanent tracheostomy dependence as well as complications from underlying tracheostomy procedure. Track Grinder Operator service limited in coverage of percutaneous tracheostomy providers, at the present time [facility] does not have ear nose and throat surgical coverage, if family prefers open tracheostomy this may be best facilitated at institution that can provide these surgical services which we cannot at this present time. CRITICAL CARE TIME - I have personally spent 65 minutes of critical care time in the direct management of this patient. This is a life/limb threatening event. This includes time spent evaluating patient, direct bedside care, chart review, placing orders, interpretation of diagnostic studies, discussion with consultants, patient, and family members, as well as other required patient management activities. This time is exclusive of all separately billable procedures, and teaching time and separate from and in addition to any other critical care service time. Admission and Anticipated Discharge Date Admission Date: January 09, 2025 Physical Exam Physical Exam: General: Sedated. nontoxic. Arouses to verbal and tactile stimuli Skin: Warm, dry, Head: Atraumatic Ears, nose, mouth and throat: airway obscured by endotracheal tube Cardiovascular: Normal peripheral perfusion Respiratory: Ventilator settings reviewed Gastrointestinal: Non distended Musculoskeletal: No deformity Results & Data Results & Data Vital Signs (Past 12 Hours) Vital Signs Temp Pulse Resp BP Pulse Ox O2 Del Method FiO2 01/18/25 05:03 67 17 95 01/18/25 05:00 37 C 157/71 H 01/18/25 04:31 143/66 H 01/18/25 04:15 62 17 91 01/18/25 04:06 50 L 15 94 01/18/25 04:00 40 01/18/25 03:45 53 L 15 93 01/18/25 03:30 55 L 15 102/47 L 93 01/18/25 03:14 120/54 L 01/18/25 03:12 62 15 98 01/18/25 03:00 90/49 L 01/18/25 03:00 54 L 15 92 01/18/25 02:48 54 L 15 90 01/18/25 02:32 135/73 01/18/25 02:24 68 18 94 01/18/25 02:06 67 22 93 01/18/25 02:01 151/84 H 01/18/25 01:54 64 18 93 01/18/25 01:45 139/73 01/18/25 01:45 61 18 92 01/18/25 01:42 61 17 91 01/18/25 01:30 146/71 H 01/18/25 01:00 145/85 H 01/18/25 00:36 66 17 97 01/18/25 00:30 160/93 H 01/18/25 00:09 36.7 C 67 20 159/96 H 93 01/18/25 00:00 54 L 01/17/25 23:30 53 L 15 95 40 01/17/25 23:06 61 15 133/72 94 01/17/25 22:36 126/67 01/17/25 22:33 103/48 L 01/17/25 22:30 50 L 15 95 01/17/25 22:12 53 L 15 93 01/17/25 22:00 36.6 C 124/58 L 01/17/25 22:00 124/58 L 01/17/25 22:00 36.5 C 54 L 15 94 01/17/25 21:45 124/53 L 01/17/25 21:45 124/53 L 01/17/25 21:45 54 L 15 94 01/17/25 21:30 112/53 L 01/17/25 21:27 53 L 15 95 01/17/25 21:15 127/60 01/17/25 21:15 127/60 01/17/25 21:03 55 L 15 93 01/17/25 21:00 130/60 01/17/25 21:00 36.6 C 55 L 15 95 01/17/25 20:51 55 L 15 95 Mechanical Vent 40 01/17/25 20:31 148/72 H 01/17/25 20:21 62 15 91 Mechanical Vent 40 Coding Level of Care Code 16503 CRITICAL CARE 1ST 30-74M Diagnoses Cardiac arrest I46.9 Aspiration into respiratory tract T17.908A Acute on chronic heart failure with preserved ejection fraction I50.33 Pickwickian syndrome E66.2 Pulmonary hypertension I27.20 Chronic hypoxic respiratory failure, on home oxygen therapy J96.11; Z99.81 Morbid obesity E66.01
[2025-01-18] MEDS: acetaZOLAMIDE 500 MG in SYRINGE 0 ML IV SCH (10:21)
--- NOTE | 2025-01-18 15:27 | Hospitalist Progress Note ---
Date of Service January 18, 2025 Assessment & Plan (1) Acute and chronic respiratory failure with hypercapnia: Plan: Cardiopulmonary arrest secondary to possible aspiration -remains intubated -weaned off pressors -MRI head unrevealing for anoxic brain injury; exam improving overall -extubated -continues to have shallow breathing on exam, on nasal cannula Plan: -appreciate critical care consult -continue supportive care -now on nasal cannula -will check echo and repeat head imaging pending clinical course -per patient expressed wishes would like friend Michelle and son Anmol to make decisions jointly on her behalf, and would like to be full code at this time -see above, next of kin Anmol would like to proceed with tracheostomy and likely PEG placement, discussed with [facility], would like to discuss with engineered wood designer/surgery team here before accepting patient Acute on chronic hypoxemic, hypercapnic respiratory failure Secondary to HFpEF secondary to missed home medications, uncontrolled BP Underlying pulmonary hypertension hx chronic respiratory failure secondary to COPD/RLD on home O2 OHS on CPAP -maintained on Lasix IV -Rf Manager and Anaesthesiologist on board Hypertensive Urgency -Carvedilol 3.125 mg BID R lower leg wounds -no signs of infection -continue daily wound care -broodmare barn groom consulted Abnormal CT scan, chest: -per retail zone specialist: -Radiology noted a mild left basal pleural thickening and mild dependent reticular and ill-defined groundglass opacities in the basal segments of the le ft lower lobe. I suspect these are likely related to atelectasis and small chronic effusion. Recommend a follow-up CT chest in about 3 months. Troponin elevation secondary to above hyperlipidemia, on statin Rx DM2 insulin requiring, suboptimal control as of recent hemoglobin A1c of 8.25 September 2024 CRI, creatinine mildly increased, monitor closely anxiety/mood disorder, at baseline past tobacco abuse I spent a total of 50 minutes in direct patient care, including [id number] time with the patient and/or family, reviewing medical records, ordering and reviewing diagnostic tests, and coordinating care with other healthcare providers. This time includes: history taking, physical examination, medical decision making, counseling, ECG interpretation, imaging interpretation, lab interpretation, orders, and education, excluding time spent in the performance of separately billed services. I spent a total of 30 minutes providing advanced care planning to the patient and/or family, including [id number] time discussing the patient's health status, prognosis, and treatment options. This time includes specific activities such as: discussing advance directives, goals of care, prognostication, and end-of-life planning. Admission and Anticipated Discharge Date Admission Date: January 09, 2025 Subjective Patient seen and examined at bedside. Onset at this time. Goals of care with brother, next of kin son, friend at bedside. Advanced Care Plannin minutes spent discussing goals and values with family. Conversation began by introducing myself and the family members and her roles on the care team/family. Discussed the patient's critical condition, including reintubation after extubation. Discussed that she is likely going to need chronic weaning over the course of weeks to months. Discussed what this course would look like including high risk tracheostomy given class III obesity, needing placement at an LTAC, high likelihood of recurrent aspiration pneumonitis's and pneumonia, possible bleeding risk possible fistula risk. Discussed that her prognosis is likely limited and she is likely to decline slowly over the course of months to a year or 2. Son states that she told him to "do everything" and that "she is a fighter". He states that she would want the tracheostomy. Friend expresses concerns that she would not want to live this way, however agrees the patient may have indicated to son via blinking yes that she would want a tracheostomy. Therefore, we will pursue tracheostomy and PEG tube placement with consideration for transfer to LTAC afterwards. Review of Systems Review of Systems: -unable to answer due to mental status Physical Exam Physical Exam: Gen: NAD, RASS -1 HEENT: NCAT, EOMI, not icteric. External ears normal. No rhinorrhea. Moist mucous membranes. Neck: Supple, full range of motion, no observable masses, No meningeal sign. Lungs: rhonchi noted bilaterally, worse on right CV: RRR, no edema. Abdomen: Soft, nondistended, No rebound tenderness. MSK: No joint swelling, no redness. Skin: No rashes, petechiae, lesions. Normal color per patient. Neuro: moving all 4 extremities Results & Data Results & Data Vital Signs (Past 12 Hours) Vital Signs Temp Pulse Resp BP Pulse Ox O2 Del Method FiO2 01/18/25 15:12 37.1 C 01/18/25 15:00 113/50 L 01/18/25 15:00 113/50 L 01/18/25 14:45 57 L 17 93 Mechanical Vent 45 01/18/25 14:30 116/56 L 01/18/25 14:30 116/56 L 01/18/25 14:30 57 L 15 92 01/18/25 14:03 60 15 92 01/18/25 14:00 129/57 L 01/18/25 13:42 65 19 91 01/18/25 13:30 131/57 L 01/18/25 13:21 71 12 93 01/18/25 13:06 57 L 17 95 01/18/25 12:47 37.1 C 01/18/25 12:30 121/52 L 01/18/25 12:30 121/52 L 01/18/25 12:21 62 19 92 01/18/25 12:12 64 93 Mechanical Vent 45 01/18/25 12:00 129/57 L 01/18/25 12:00 129/57 L 01/18/25 12:00 45 01/18/25 11:54 73 17 95 01/18/25 11:31 169/85 H 01/18/25 11:24 63 15 91 01/18/25 11:00 109/55 L 01/18/25 11:00 109/55 L 01/18/25 11:00 60 14 89 L 01/18/25 10:35 71 20 91 45 01/18/25 10:30 168/76 H 01/18/25 10:30 168/76 H 01/18/25 10:27 72 21 92 01/18/25 10:00 69 19 90 01/18/25 10:00 157/72 H 01/18/25 10:00 157/72 H 01/18/25 09:30 162/83 H 01/18/25 09:21 76 22 91 01/18/25 09:16 37.3 C 01/18/25 09:06 71 19 93 01/18/25 08:06 69 15 90 01/18/25 08:00 143/70 H 01/18/25 08:00 143/70 H 01/18/25 08:00 143/70 H 01/18/25 08:00 40 01/18/25 07:57 65 16 92 01/18/25 07:45 Mechanical Vent 45 01/18/25 07:30 151/72 H 01/18/25 07:30 151/72 H 01/18/25 07:30 55 L 16 91 40 01/18/25 07:00 117/60 01/18/25 06:54 64 18 92 Mechanical Vent 40 01/18/25 06:47 72 01/18/25 05:03 67 17 95 01/18/25 05:00 37 C 157/71 H 01/18/25 04:31 143/66 H 01/18/25 04:15 62 17 91 01/18/25 04:06 50 L 15 94 01/18/25 04:00 40 01/18/25 03:45 53 L 15 93 01/18/25 03:30 55 L 15 102/47 L 93 Laboratory Results -personally reviewed, Hgb of 10.5 relatively stable, no leukocytosis, VBG with mild respiratory alkalosis Diagnostic Findings Chest X-Ray 01/18/25 06:00 EXAM: XR chest 1V portable CLINICAL HISTORY: evaluate lung guerrero/opacifications TECHNIQUE: An X-ray image of the chest is obtained in AP projection. COMPARISON: 01/17/2025 FINDINGS: Pulmonary Parenchyma: Interval progression in left lung opacity, suggesting total collapse/consolidation with pleural effusion Interval demonstration of right lower zone patchy opacity. No evidence of right sided pleural effusion or pleural thickening. Left central line noted in place. unchanged. ETT in situ, tip 3 cm above suki. NG tube inserted (distal limb) below left hemidiaphragm. Heart and Mediastinum: Heart size is limited on this projection. Bony Thorax: Bony thorax appears intact without fractures or deformities. Soft Tissues: Soft tissues overlying the chest wall are unremarkable. IMPRESSION: 1. Interval progression in left lung opacity, suggesting total collapse/consolidation with pleural effusion 2. Interval redemonstration of right lower zone patchy opacity. Could be due to infection or edema. 3. Left central line noted in place. unchanged. 4. ETT in situ, tip 3 cm above suki. 5. NG tube inserted (distal limb) below left hemidiaphragm. Electronically signed by Jacky Villasenor 01-18-2025 08:06 AM -personally reviewed, total collapse and consolidation of left lung with pleural effusion Medications Administered Acetaminophen (Acetaminophen 325 Mg Tab) 650 mg PO QID PRN PRN Reason: pain/fever Stop: 02/08/25 04:44 Last Admin: 01/11/25 21:17 Dose: 650 mg Documented By: pole climber: 01/10/25 23:34 Dose: 650 mg Documented By: Admin: 01/10/25 09:14 Dose: 650 mg Documented By: Admin: 01/09/25 22:13 Dose: 650 mg Documented By: VICKIE Cyanocobalamin (Cyanocobalamin (B-12) 500 Mcg Tablet) 1,000 mcg PO DAILY ALBERTO Stop: 02/08/25 08:59 Last Admin: 01/18/25 08:57 Dose: 1,000 mcg Documented By: Admin: 01/17/25 10:29 Dose: 1,000 mcg Documented By: Admin: 01/16/25 09:11 Dose: Not Given Documented By: Admin: 01/15/25 09:23 Dose: Not Given Documented By: Admin: 01/14/25 07:46 Dose: 1,000 mcg Documented By: Admin: 01/13/25 07:50 Dose: 1,000 mcg Documented By: Admin: 01/12/25 10:13 Dose: Not Given Documented By: Admin: 01/11/25 08:24 Dose: 1,000 mcg Documented By: Admin: 01/10/25 08:47 Dose: 1,000 mcg Documented By: OScarlett Admin: 01/09/25 09:44 Dose: 1,000 mcg Documented By: COLLNI Furosemide (Furosemide Inj 20 Mg/2 Ml Vial) 20 mg IV DAILY ALBERTO Stop: 02/14/25 14:44 Last Admin: 01/18/25 09:00 Dose: 20 mg Documented By: Admin: 01/17/25 10:31 Dose: 20 mg Documented By: Admin: 01/16/25 08:58 Dose: 20 mg Documented By: Admin: 01/15/25 14:43 Dose: 20 mg Documented By: CONCHA Gabapentin (Gabapentin 100 Mg Cap) 200 mg PO HS ALBERTO Stop: 02/11/25 08:59 Last Admin: 01/17/25 20:13 Dose: Not Given Documented By: Admin: 01/16/25 20:16 Dose: Not Given Documented By: Admin: 01/15/25 20:26 Dose: Not Given Documented By: [id number] Admin: 01/14/25 20:08 Dose: 200 mg Documented By: AMS Heparin Sodium (Porcine) (Heparin Sod 5,000 Unit/0.5 Ml Vial) 5,000 units SQ Q8H ALBERTO Stop: 02/08/25 05:59 Last Admin: 01/18/25 14:13 Dose: 5,000 units Documented By: Admin: 01/18/25 05:47 Dose: 5,000 units Documented By: Admin: 01/17/25 21:24 Dose: 5,000 units Documented By: Admin: 01/17/25 15:19 Dose: 5,000 units Documented By: Admin: 01/17/25 06:16 Dose: 5,000 units Documented By: Admin: 01/16/25 21:32 Dose: 5,000 units Documented By: Admin: 01/16/25 14:25 Dose: 5,000 units Documented By: Admin: 01/16/25 05:24 Dose: 5,000 units Documented By: [id number] Admin: 01/15/25 21:10 Dose: 5,000 units Documented By: [id number] Admin: 01/15/25 14:43 Dose: 5,000 units Documented By: Admin: 01/15/25 05:53 Dose: 5,000 units Documented By: Admin: 01/14/25 22:37 Dose: 5,000 units Documented By: Admin: 01/14/25 15:35 Dose: 5,000 units Documented By: Admin: 01/14/25 05:49 Dose: 5,000 units Documented By: Admin: 01/13/25 21:21 Dose: 5,000 units Documented By: Admin: 01/13/25 13:50 Dose: 5,000 units Documented By: Admin: 01/13/25 05:45 Dose: 5,000 units Documented By: Admin: 01/12/25 21:48 Dose: 5,000 units Documented By: Admin: 01/12/25 14:24 Dose: 5,000 units Documented By: Admin: 01/12/25 05:44 Dose: 5,000 units Documented By: pole climber: 01/11/25 21:19 Dose: 5,000 units Documented By: pole climber: 01/11/25 14:08 Dose: 5,000 units Documented By: CM(2) Admin: 01/11/25 06:23 Dose: 5,000 units Documented By: Admin: 01/10/25 21:24 Dose: 5,000 units Documented By: Admin: 01/10/25 13:18 Dose: 5,000 units Documented By: Admin: 01/10/25 06:17 Dose: 5,000 units Documented By: Admin: 01/09/25 22:14 Dose: 5,000 units Documented By: Admin: 01/09/25 15:14 Dose: 5,000 units Documented By: Admin: 01/09/25 06:21 Dose: 5,000 units Documented By: MIKE Hydralazine HCl (Hydralazine Hcl 20 Mg/Ml Vial) 5 mg IV Q4H PRN PRN Reason: SBP > 185 and/or DBP >100 Stop: 02/15/25 18:43 Last Admin: 01/16/25 23:08 Dose: 5 mg Documented By: MIGUELITO Propofol (Diprivan) 1,000 mg in 100 mls @ 17.25 mls/hr IV .Q5H48M [facility]; Protocol Stop: 01/20/25 09:14 Last Admin: 01/18/25 14:13 Dose: 25 mcg/kg/min, 17.3 mls/hr Documented By: ANITA Co-signed By: MIGUELITO(2) Titration: 01/18/25 14:13 Dose: Infused Documented By: ANITA Co-signed By: MIGUELITO(2) Admin: 01/18/25 09:40 Dose: 25 mcg/kg/min, 17.3 mls/hr Documented By: ANITA Co-signed By: MIGUELITO(2) Titration: 01/18/25 09:01 Dose: Infused Documented By: ANITA Co-signed By: MIGUELITO(2) Titration: 01/18/25 06:55 Dose: 25 mcg/kg/min, 17.3 mls/hr Documented By: ANITA Co-signed By: MIGUELITO Admin: 01/18/25 03:48 Dose: Not Given Documented By: Admin: 01/18/25 03:48 Dose: Not Given Documented By: Admin: 01/18/25 03:14 Dose: 25 mcg/kg/min, 17.3 mls/hr Documented By: MIGUELITO Co-signed By: RAHEEL Titration: 01/18/25 03:14 Dose: Infused Documented By: MIGUELITO Co-signed By: RAHEEL Titration: 01/18/25 02:20 Dose: 25 mcg/kg/min, 17.3 mls/hr Documented By: Titration: 01/17/25 21:26 Dose: Infused Documented By: MIGUELITO Co-signed By: RAHEEL Admin: 01/17/25 21:26 Dose: 20 mcg/kg/min, 13.8 mls/hr Documented By: MIGUELITO Co-signed By: RAHEEL Titration: 01/17/25 19:00 Dose: 20 mcg/kg/min, 13.8 mls/hr Documented By: MIGUELITO Co-signed By: ANITA Admin: 01/17/25 15:19 Dose: 20 mcg/kg/min, 13.8 mls/hr Documented By: ANITA Co-signed By: MIGUELITO(2) Titration: 01/17/25 15:19 Dose: Infused Documented By: WS Co-signed By: MIGUELITO(2) Titration: 01/17/25 10:00 Dose: 15 mcg/kg/min, 10.4 mls/hr Documented By: Titration: 01/17/25 09:30 Dose: 10 mcg/kg/min, 6.9 mls/hr Documented By: Admin: 01/17/25 09:15 Dose: 5 mcg/kg/min, 3.5 mls/hr Documented By: ANITA Co-signed By: LANE Acetazolamide 500 mg/ Syringe 5 mls @ 1.667 mls/min IV BID ALBERTO Stop: 01/18/25 21:02 Last Admin: 01/18/25 10:21 Dose: 1.667 mls/min Documented By: ANITA Insulin Aspart (Insulin Aspart Per Unit Charge) 0 units SC Q6 ALBERTO Stop: 02/14/25 00:00 Last Admin: 01/18/25 12:58 Dose: 1 units Documented By: ANITA Co-signed By: MIGUELITO(2) Admin: 01/18/25 05:48 Dose: Not Given Documented By: Admin: 01/18/25 00:42 Dose: 1 units Documented By: MIGUELITO Co-signed By: NOVA Admin: 01/17/25 19:02 Dose: 2 units Documented By: ANITA Co-signed By: MIGUELITO Admin: 01/17/25 13:09 Dose: Not Given Documented By: Admin: 01/17/25 06:20 Dose: Not Given Documented By: Admin: 01/16/25 23:49 Dose: 1 units Documented By: MIGUELITO Co-signed By: RAHEEL Admin: 01/16/25 18:02 Dose: Not Given Documented By: Admin: 01/16/25 12:39 Dose: Not Given Documented By: JONH Insulin Glargine (Lantus Per Unit Charge) 5 units SQ HS ALBERTO Stop: 02/08/25 20:59 Last Admin: 01/17/25 21:24 Dose: 5 units Documented By: MIGUELITO Co-signed By: RAHEEL Admin: 01/16/25 21:32 Dose: 5 units Documented By: MIGUELITO Co-signed By: RAHEEL Admin: 01/15/25 21:10 Dose: 5 units Documented By: [id number] Co-signed By: MIGUELITO Admin: 01/14/25 20:24 Dose: 5 units Documented By: AMS Co-signed By: SKGeetha Admin: 01/13/25 20:45 Dose: 5 units Documented By: AMS Co-signed By: SG Admin: 01/12/25 21:47 Dose: 5 units Documented By: AMS Co-signed By: SG Admin: 01/11/25 21:17 Dose: 5 units Documented By: MED Co-signed By: LINDA Admin: 01/10/25 21:25 Dose: 5 units Documented By: VICKIE Co-signed By: PAH Admin: 01/09/25 22:13 Dose: 5 units Documented By: VICKIE Co-signed By: CR Miscellaneous (Icu Electrolyte Replacement Protocol) 1 each N/A BID@06,18 [facility]; Protocol Stop: 01/19/25 17:59 Last Admin: 01/18/25 05:24 Dose: 1 each Documented By: Admin: 01/17/25 19:03 Dose: Not Given Documented By: Admin: 01/17/25 06:17 Dose: 1 each Documented By: Admin: 01/16/25 18:02 Dose: Not Given Documented By: Admin: 01/16/25 05:58 Dose: 1 each Documented By: [id number] Admin: 01/15/25 15:06 Dose: Not Given Documented By: MIGUELITO(2) Admin: 01/15/25 05:56 Dose: Not Given Documented By: Admin: 01/14/25 18:11 Dose: 1 each Documented By: Admin: 01/14/25 06:16 Dose: Not Given Documented By: Admin: 01/13/25 20:15 Dose: Not Given Documented By: Admin: 01/13/25 05:23 Dose: 1 each Documented By: Admin: 01/12/25 22:10 Dose: Not Given Documented By: BIMAL Multivitamins/Minerals (Multi Vit W/Minerals Liquid 15 Ml Udc) 15 ml NG QAM ALBERTO Stop: 02/14/25 08:59 Last Admin: 01/18/25 08:56 Dose: 15 ml Documented By: Admin: 01/17/25 10:30 Dose: 15 ml Documented By: Admin: 01/16/25 09:12 Dose: Not Given Documented By: Admin: 01/15/25 09:23 Dose: Not Given Documented By: DEEPTHIK Ondansetron HCl (Ondansetron Inj 2 Mg/Ml 2 Ml Vial) 4 mg IV Q6H PRN PRN Reason: Nausea And Vomiting Stop: 02/15/25 14:32 Last Admin: 01/16/25 14:38 Dose: 4 mg Documented By: JONH Propofol (Propofol Bolus From Bag) 20 mg IV Q5M PRN PRN Reason: Sedation Stop: 01/20/25 09:10 Last Admin: 01/17/25 09:15 Dose: 20 mg Documented By: ANITA Co-signed By: MIGUELITO(2) Sterile Water (Tube Feeding Water Flush) 30 ml OG Q4H ALBERTO Stop: 02/16/25 11:29 Last Admin: 01/18/25 12:57 Dose: 30 ml Documented By: Admin: 01/18/25 08:56 Dose: 30 ml Documented By: Admin: 01/18/25 03:47 Dose: 30 ml Documented By: Admin: 01/18/25 00:20 Dose: 30 ml Documented By: Admin: 01/17/25 20:00 Dose: 30 ml Documented By: Admin: 01/17/25 15:19 Dose: 30 ml Documented By: Admin: 01/17/25 13:09 Dose: 30 ml Documented By: ANITA Vitamin D (Cholecalciferol 25 Mcg (1000 Units) Tab) 25 mcg PO DAILY ALBERTO Stop: 02/08/25 08:59 Last Admin: 01/18/25 08:57 Dose: 25 mcg Documented By: Admin: 01/17/25 10:29 Dose: 25 mcg Documented By: Admin: 01/16/25 09:11 Dose: Not Given Documented By: KJLana Admin: 01/15/25 09:23 Dose: Not Given Documented By: Admin: 01/14/25 07:45 Dose: 25 mcg Documented By: Admin: 01/13/25 07:50 Dose: 25 mcg Documented By: Admin: 01/12/25 10:13 Dose: Not Given Documented By: Admin: 01/11/25 08:24 Dose: 25 mcg Documented By: Admin: 01/10/25 08:48 Dose: 25 mcg Documented By: Admin: 01/09/25 09:44 Dose: 25 mcg Documented By: COLLIN
[2025-01-18] MEDS: carvediloL 3.125 MG TAB NG ONE (18:19)
[2025-01-18 19:19] LABS: BUN Creatinine Ratio 32.2 (10-20); Calcium 8.2 mg/dl (8.6-10.3); Creatinine Clr Calc Pharmacy 56.7 ml/min; Magnesium 2.1 mg/dl (1.7-2.4); Potassium 3.6 mmol/L (3.5-5.1)
[2025-01-18] MEDS: POTASSIUM CHLORIDE 20 MEQ/15 ML UDC PO STA (21:20)
[2025-01-18] MEDS: GABAPENTIN 250 MG/5 ML 470 ML BTL PO SCH (22:17)
[2025-01-19 05:04] LABS: Basophils # (auto) 0.04 K/uL (0.00-0.20); Basophils % (auto) 0.6 %; Eosinophils # (auto) 0.27 K/uL (0.00-0.50); Eosinophils % (auto) 3.8 %; Hematocrit (blood only) 36.8 % (37.0-47.0); Immature Granulocytes # (auto) 0.02 K/uL (0.01-0.20); Immature Granulocytes % (auto) 0.3 %; Lymphocytes # (auto) 1.12 K/uL (1.20-3.40); Lymphocytes % (auto) 15.6 %; Mean Corpuscular Hemoglobin 25.9 pg (25.0-34.0); Mean Corpuscular Hgb Conc 29.9 g/dL (32.0-36.0); Mean Corpuscular Volume 86.8 fL (80.0-100.0); Mean Platelet Volume 10.2 fL (9.4-12.4); Monocytes # (auto) 0.76 K/uL (0.11-0.59); Monocytes % (auto) 10.6 %; Neutrophils # (auto) 4.99 K/uL (1.40-6.50); Neutrophils % (auto) 69.1 %; Platelet Count 148 K/uL (130-400); RDW Coefficient of Variation 16.4 % (11.5-14.5); RDW Standard Deviation 50.9 fL (36.4-46.3); Red Blood Count 4.24 M/uL (4.20-5.40)
[2025-01-19 05:19] LABS: BUN Creatinine Ratio 32.5 (10-20); Creatinine Clr Calc Pharmacy 57.2 ml/min; Magnesium 2.1 mg/dl (1.7-2.4); Potassium 3.8 mmol/L (3.5-5.1)
[2025-01-19] MEDS: POTASSIUM CHLORIDE 20 MEQ/15 ML UDC NG SCH (07:37)
[2025-01-19] MEDS: carvediloL 3.125 MG TAB NG SCH (07:40)
--- NOTE | 2025-01-19 07:45 | XRay Report ---
EXAM: XR chest 1V portable CLINICAL HISTORY: eval tubes/lines/lung guerrero TECHNIQUE: An X-ray image of the chest is obtained in AP projection. COMPARISON: 01/18/2025. FINDINGS: Pulmonary Parenchyma: Interval stable endotracheal tube seen in situ approximately 3.5 cm above suki. Left-sided central venous line seen in situ at the cavoatrial junction. NG tube inserted (distal limb) below left hemidiaphragm. Interval progress, opacification of left hemithorax obscuring the costophrenic recess. Heart and Mediastinum: Cardiac shadow is enlarged in size with bilateral hilar congestion. No mediastinal widening or masses. No hilar or mediastinal lymphadenopathy. Bony Thorax: Bony thorax appears intact without fractures or deformities. Soft Tissues: Soft tissues overlying the chest wall are unremarkable. IMPRESSION: 1. Interval stable endotracheal tube seen in situ. 2. Interval stable left-sided central venous line in situ. 3. Interval progressed, homogeneous opacification of left hemithorax obscuring the left costophrenic recess. Collapse/consolidation with moderate to severe effusion. 4. Comparing the previous x-ray dated there is interval progression in the opacification of left hemithorax. Electronically signed by Jacky Villasenor 01-19-2025 07:45 AM
[2025-01-19] MEDS ORDERED: SODIUM BICARB 8.4% INJ 50 MEQ/50 ML SYR IV ONE (07:50)
[2025-01-19] MEDS ORDERED: CALCIUM CHLORIDE 10% 10 ML SYR IV ONE (07:50)
[2025-01-19] MEDS ORDERED: SODIUM CHLORIDE 0.9% 10ML FLUSH IV ONE (07:50)
[2025-01-19] MEDS ORDERED: ETOMIDATE 2 MG/ML 20 ML VIAL IV ONE (07:51)
[2025-01-19] MEDS ORDERED: MIDAZOLAM HCL 5 MG/ML 2ML VIAL IV ONE (07:51)
--- NOTE | 2025-01-19 08:24 | Critical Care Progress Note ---
Date of Service January 19, 2025 Assessment & Plan (1) Cardiac arrest: (2) Aspiration into respiratory tract: (3) Acute on chronic heart failure with preserved ejection fraction: (4) Pickwickian syndrome: (5) Pulmonary hypertension: (6) Chronic hypoxic respiratory failure, on home oxygen therapy: (7) Morbid obesity: Plan Impression: 69-year-old female with multiple medical issues including acute on chronic hypoxemic respiratory failure and hypercarbic respiratory failure with noncompliance with noninvasive positive pressure ventilation at home admitted with shortness of breath and fluid overload. She was diuresed and being treated with BiPAP but suffered an aspiration event 01/12/2025 resulting in cardiac arrest and prolonged PEA code. She is now in the ICU intubated and on an epinephrine infusion. Recommendations: -- Neurologic: Sedation with propofol Neurologically never returned back to her baseline status after the cardiac MRI brain 01/13/2025 did not show any acute intracranial abnormality, chronic microvascular extremity disease, paranasal sinus disease with mastoid effusions -- Cardiovascular PEA arrest on 01/12/2025 likely secondary to aspiration event and hypoxemia. Hemodynamically stable right now -- Pulmonary hypertension Likely a combination of type II and type III Pulmonary :- -- VDRF Likely secondary to respiratory arrest, initial intubation was secondary to PEA, repeat intubation was secondary to hypoxia and left lung collapse Continue with ventilatory support Keep RASS -1 Daily sedation holidays and SBT's --Left lung collapse Had multiple bronchoscopies in the past Latest 1 being 01/19/2025, showing significant narrowing as well as friable mucosa of the left main -- ID: --Aspiration pneumonia Completed 5-day course Zosyn Follow fever curve, white blood cell count, --GI: Continue with tube feeds -- Renal: Kidney function stable. Continue ICU electrolyte replacement protocol -- Endocrine: ICU hyperglycemia protocol -- Heme-onc: Monitor H&H --Prophylaxis VTE: Heparin GI: Pantoprazole Lines: Left subclavian Diet: Tube feeds Plan: In/out: -2.1 L, urine output 2810 Patient's chest x-ray today again showed complete whiteout of the left side of the lung Bronchoscopy was performed which showed significant narrowing of the left main bronc. No endobronchial lesion. Cultures were sent from the left main wash Significant friable mucosa I will put her on Solu-Medrol 40 mg twice daily as an anti-inflammatory to see if it will decrease the swelling. Potassium is being replaced Patient has finished 5 days of Zosyn. Given that the patient is afebrile okay to monitor her off antibiotics for the time being DC gabapentin Try to titrate down the propofol as much as possible. I discussed the case with Dr. Flores from [facility] who is ENT and she is okay to do trach there I also gave in-depth signout to Dr. Ortiz who is the jalousies installer at [facility] Case was discussed with primary team Patient's brother was also updated on the phone I have personally spent 80 minutes of critical care time in the direct management of this patient. This is a life/limb threatening event. This includes time spent evaluating patient, direct bedside care, chart review, placing orders, interpretation of diagnostic studies, discussion with consultants, patient, and family members, as well as other required patient management activities. This time is exclusive of all separately billable procedures, and teaching time and separate from and in addition to any other critical care service time. Admission and Anticipated Discharge Date Admission Date: January 09, 2025 Subjective Patient seen and examined at bedside. No acute distress, no adverse events overnight. Patient systolic blood pressure was in 105 with MAP in the mid 60s. She was on propofol 25 at the time of examination. Has been afebrile. Was on PEEP of 10 and FiO2 60% with saturation around 91-92% She was breathing over the vent Review of Systems 2 Review of Systems: All systems reviewed & are unremarkable except as noted in Subjective Physical Exam 2 Physical Exam: Constitutional: No acute distress HEENT: PERRLA Respiratory system: Decreased air entry bilaterally, more decreased on the left side, no wheeze, no rhonchi, no crackles CVS: S1-S2 positive, no murmurs or gallops Abdomen: Soft, nontender, nondistended, positive bowel sounds x4, obese Extremities: +2 pulses bilaterally radialis/ dorsalis pedis, no cyanosis, no edema Neuro: Breathing over the vent, opens her eyes but does not track Psych: Unable to assess G/U: Positive Thompson Skin: no rashes, warm and dry Lymphatic: no cervical or axillary lymphadenopathy Results & Data Results & Data Vital Signs (Past 12 Hours) Vital Signs Temp Pulse Resp BP Pulse Ox FiO2 01/19/25 07:57 84 01/19/25 06:00 91/55 L 01/19/25 05:48 37.3 C 84 15 93 01/19/25 05:00 37.4 C 97 H 21 127/80 94 01/19/25 04:30 112/69 01/19/25 04:00 37.6 C H 88 20 89/61 L 93 01/19/25 04:00 40 01/19/25 03:30 81/50 L 01/19/25 03:30 96 H 17 92 40 01/19/25 03:15 37.6 C H 88 19 92 01/19/25 03:06 37.6 C H 97 H 18 92 01/19/25 02:30 119/67 01/19/25 02:27 37.7 C H 100 H 18 91 01/19/25 02:00 87/51 L 01/19/25 01:06 37.8 C H 102 H 20 106/65 89 L 01/19/25 00:48 37.8 C H 103 H 18 95 01/19/25 00:41 107 H 21 98 40 01/19/25 00:30 114/64 01/19/25 00:15 37.8 C H 93 H 19 96 01/19/25 00:03 37.8 C H 91 H 19 117/67 90 01/19/25 00:00 101 H 01/19/25 00:00 40 01/18/25 23:57 37.8 C H 101 H 17 93 01/18/25 23:30 125/71 01/18/25 23:27 37.8 C H 97 H 21 93 01/18/25 23:00 115/67 01/18/25 23:00 37.8 C H 95 H 19 115/67 96 01/18/25 22:30 37.8 C H 102 H 20 136/88 94 01/18/25 22:15 37.8 C H 106 H 25 H 95 01/18/25 22:00 138/79 01/18/25 21:57 37.8 C H 107 H 22 97 01/18/25 21:30 131/87 01/18/25 21:06 37.8 C H 108 H 19 96 01/18/25 21:00 37.8 C H 100 H 20 143/74 H 97 Laboratory Results 01/19/25 04:43 04/28/25 04:43 Coding Level of Care Code 45789 CRITICAL CARE 1ST 30-74M Diagnoses Cardiac arrest I46.9 Aspiration into respiratory tract T17.908A Acute on chronic heart failure with preserved ejection fraction I50.33 Pickwickian syndrome E66.2 Pulmonary hypertension I27.20 Chronic hypoxic respiratory failure, on home oxygen therapy J96.11; Z99.81 Morbid obesity E66.01
[2025-01-19] MEDS: fentaNYL citrate PF 100 MCG/2 ML VIAL IV ONE (08:40)
--- NOTE | 2025-01-19 09:06 | Procedure Note ---
Procedure Note: Bronchoscopy Procedure PREOPERATIVE DIAGNOSIS: Left lung collapse POSTOPERATIVE DIAGNOSIS: Significant narrowing of the left main with friable mucosa PROCEDURE PERFORMED: Flexible fiberoptic bronchoscopy with clearing of the airways and bronchial wash COMPLICATIONS: None. INDICATION: Collapse of the left lung PROCEDURE: Patient was already in the ICU intubated. Consent was obtained from patient's brother on the phone. The patient had appropriate oxygen, blood pressure, heart rate, and respiratory rate monitoring applied and monitored continuously throughout the procedure. FiO2 was increased to 100%, PEEP was maintained at 10. She was also on propofol 25 which was decreased to 15 and 25 mcg of fentanyl was given. Bronchoscope was advanced through ETT The trachea appeared normal.The bronchoscope was then advanced through the suki, which was sharp. The scope was then advanced into the right main stem and each segment, subsegement in the right upper lobe, right middle lobe and right lower lobe were visualized. There was minimal amount of clear secretion which was suctioned out. There were no other findings including evidence of mass, anatomic distortions, or hemorrhage. The bronchoscope was subsequently withdrawn and advanced into the left mainstem. There was significant narrowing appreciated probably 2 cm from the left main. The mucosa was very friable and it was oozing blood. When the bronc was advanced through the narrowing the left upper and left lower lobe entry were clear. There was no endobronchial lesion appreciated. The mucosa was still friable diffuse even beyond the narrowing. Minimal amount of clear secretions were appreciated which were cleared out. The bronchoscope was then wedged in the left main beyond the narrowing and bronchoalveolar lavage samples were obtained. 120 ml of saline was instilled and 40 ml of fluid was aspirated back.The bronchoscope was withdrawn and the area was suctioned clear. The bronchoscope was then withdrawn to the mainstem. The area was suctioned clear. The bronchoscope was then withdrawn. The patient tolerated the procedure well without evidence of desaturation or complications. Bronchoalveolar lavage samples were sent for cell count, Gram stain and bacterial culture, AFB culture and smear, fungal culture and smear, coccidioidal, histoplasma cryptococcus and cytology. Recommendations: Follow-up micro and cytology Follow-up chest x-ray Please note the above document was generated using voice recognition software. It may contain grammatical, syntax or spelling errors.Any formal questions or concerns about the content, text or information contained within the body of this dictation should be directly addressed to the provider for clarification. [facility] Procedure Codes (Charges) Pulmonary/Thoracic Procedure 1: Pulmonary and Thoracic: 31246 Dx bronchoscopy/wash Procedure 2: Pulmonary and Thoracic: 28884 Bronchoscopy, reclear airway
--- NOTE | 2025-01-19 09:20 | XRay Report ---
XR chest 1V portable CLINICAL HISTORY: Post Bronchoscopy COMPARISON STUDY: Chest radiograph January 19, 2025 at 6:43 AM. FINDINGS: Tip of endotracheal tube is 3.6 cm above the suki. Left subclavian central line remains i n place. There is no pneumothorax. Suspected left pleural effusion. A Extensive left lung opacificati on is again noted. Slight improvement in left lung aeration is noted since prior exam. Interstitial t hickening within the right lung is present. Left lung volume loss is noted. IMPRESSION: 1. Tip of endotracheal tube 3.6 cm above the suki. 2. Minimal aeration of the left lung, slightly improved since prior exam. Left lung volume loss. No p neumothorax. Probable left pleural effusion. 3. Cardiomegaly with mild interstitial edema within the right lung. ACT 112: Negative or not required by law. Electronically signed by: Jonnathan Quiñonez M.D. 01/19/2025 9:18 AM
[2025-01-19] MEDS: fentaNYL citrate PF 100 MCG/2 ML VIAL ONE (10:04)
[2025-01-19] MEDS ORDERED: methylPREDNISolone 125 MG/2 ML VIAL IV SCH (11:15)
[2025-01-19] MEDS ORDERED: STAT IV Infusion **Titration per Protocol STA (11:58)
[2025-01-19] MEDS: NOREPINEPHRINE/D5W 4 MG/250 ML PLCT IV SCH (12:08)
[2025-01-19] MEDS: PANTOprazole 40 MG/10 ML SYR IV SCH (12:08)
[2025-01-19 12:09] VITALS: RESP 19; TEMP 99.1; O2SAT 92
[2025-01-19] MEDS: methylPREDNISolone 40 MG in SYRINGE 0 ML IV SCH (12:09)
--- NOTE | 2025-01-19 12:19 | Discharge Summary ---
Discharge Summary Date of Service January 19, 2025 Principal Dx & Hospital Course #1 = Principal Diagnosis (1) Acute and chronic respiratory failure with hypercapnia: Cardiopulmonary arrest secondary to possible aspiration -remains intubated -weaned off pressors -MRI head unrevealing for anoxic brain injury; exam improving overall -extubated -continues to have shallow breathing on exam, on nasal cannula Plan: -appreciate critical care consult -continue supportive care -now on nasal cannula -will check echo and repeat head imaging pending clinical course -per patient expressed wishes would like friend Michelle and son Anmol to make decisions jointly on her behalf, and would like to be full code at this time -see above, next of kin Anmol would like to proceed with tracheostomy and likely PEG placement, discussed with [facility], accepted for transfer, family notified Acute on chronic hypoxemic, hypercapnic respiratory failure Secondary to HFpEF secondary to missed home medications, uncontrolled BP Underlying pulmonary hypertension hx chronic respiratory failure secondary to COPD/RLD on home O2 OHS on CPAP -maintained on Lasix IV -[employer] and [employer] C[employer] on board Hypertensive Urgency -Carvedilol 3.125 mg BID R lower leg wounds -no signs of infection -continue daily wound care -gameplay engineer consulted Abnormal CT scan, chest: -per exchange clerk: -Radiology noted a mild left basal pleural thickening and mild dependent reticular and ill-defined groundglass opacities in the basal segments of the left lower lobe. I suspect these are likely related to atelectasis and small chronic effusion. Recommend a follow-up CT chest in about 3 months. Troponin elevation secondary to above hyperlipidemia, on statin Rx DM2 insulin requiring, suboptimal control as of recent hemoglobin A1c of 8.25 September 2024 CRI, creatinine mildly increased, monitor closely anxiety/mood disorder, at baseline past tobacco abuse Notes For Next Care Provider 69 yo female with pmhx chronic respiratory failure secondary to COPD/RLD on home O2, chronic diastolic heart failure (EF 60%, TTE 2024), mild TR, hypertension, hyperlipidemia, pulmonary hypertension, OHS on CPAP, DM2 insulin requiring, CRI (baseline creatinine 1.5-1.7), chronic LE venous stasis, GERD, cholelithiasis, anxiety/mood disorder, past tobacco abuse. ADmitted for decompensated heart failure and hypercapnia. Choked while eating, had 25 minute PEA arrest with ROSC. Intubated for 2 days, MR zac did not reveal evidence of anoxic brain injury, extubated once mental status improved. AFter 1.5 days patient reintubated due to respiratory failure, bronchoscopy revelaed left lung collapse 2/2 atelectasis. 3 separate bronchoscopies performed while in ICU. Extensive GOC discusions with family. Son is next of kin, Franki, as is . Son, patient, patients brother live in a home complicated by hoarding and inability for self care due to body habitus. Son would like to move forward with tracheostomy. On 01/19/2025 patient being transferred for high risk tracheotomy and PEG placement. To do: [ ] consult palliative care at [facility] to help with difficult family dynamics and high risk trach [ ] nurse friend Michelle very involved in patients care, makes decisions with next of kin Franki Medication Changes From Visit -see below Admission HPI Per Admitting Provider History obtained from patient and records. Medical history significant for chronic respiratory failure secondary to COPD/RLD on home O2, chronic diastolic heart failure (EF 60%, TTE 2024), mild TR, hypertension, hyperlipidemia, pulmonary hypertension, OHS on CPAP, DM2 insulin requiring, CRI (baseline creatinine 1.5-1.7), chronic LE venous stasis, GERD, cholelithiasis, anxiety/mood disorder, past tobacco abuse. Patient is a resident of [place], [place] who has been in town the last 2 weeks to visit brother. Last confinement [facility] September, for decompensated heart failure. BiPAP use during confinement due to hypercapnia. Patient discharged to [facility], [place], [place] for rehab before returning home. Patient ran out of home meds the last couple of days. Increased SOB especially on exertion and fluid retention the last couple of days. Denies chest pain, cough. Compliant with CPAP as per patient. Compliant with 2 L fluid restriction. Denies headache symptoms. Highest SBP 180s at the ER. 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 External ears normal. No rhinorrhea. Moist mucous membranes. Neck: Supple, full range of motion, no observable masses, No meningeal sign. Lungs: rhonchi noted bilaterally, worse on right CV: RRR, no edema. Abdomen: Soft, nondistended, No rebound tenderness. MSK: No joint swelling, no redness. Skin: No rashes, petechiae, lesions. Normal color per patient. Neuro: moving all 4 extremities Updated Medication List Medication Instructions Recorded Confirmed Type carvedilol 3.125 mg tablet 3.125 mg PO AMPM 01/09/25 01/09/25 History cholecalciferol (vitamin D3) 25 25 mcg PO DAILY 01/09/25 01/09/25 History mcg (1,000 unit) tablet (Vitamin D3) cyanocobalamin (vitamin B-12) 1,000 mcg PO DAILY 01/09/25 01/09/25 History 1,000 mcg tablet escitalopram oxalate 10 mg tablet 10 mg PO QAM 01/09/25 01/09/25 History hydroxyzine HCl 25 mg tablet 25 mg PO TID PRN Anxiety 01/09/25 01/09/25 History insulin glargine 100 unit/mL (3 12 unit subcut HS 01/09/25 01/09/25 History mL) subcutaneous pen (Basaglar KwikPen U-100 Insulin) simvastatin 20 mg tablet 20 mg PO QPM 01/09/25 01/09/25 History torsemide 20 mg tablet 60 mg PO QAM 01/09/25 01/09/25 History tramadol 50 mg tablet 50 mg PO Q8 PRN Moderate Pain 01/09/25 01/09/25 History (Scale Score 5-6) carvedilol 3.125 mg tablet 3.125 mg NG BIDM #30 tabs 01/19/25 Rx Hospital Stay Data Consultations 01/09/25 03:43 ED Decision to Admit Stat 01/09/25 04:44 Consult Cardiology Routine 01/09/25 10:23 Consult Pulmonology Routine Diagnostic Imagining Performed 01/09/25 00:26 CT abd pelvis IV con only Stat CT angio chest PE protocol Stat 01/13/25 09:59 CT head/brain wo con Stat 01/13/25 12:05 MRI Brain [MR brain wo/w con] Stat Pending Results Patient Have Any Pending Studies at Discharge: No Discharge Instructions Given to Patient (Per Discharging Provider) 1. Transfer to [facility] for high risk tracheostomy. Total Time Total Time Spent Total Time Spent (In Minutes): I spent a total of 45 minutes in direct patient care, including [id number]-ab-[id number] time with the patient and/or family, reviewing medical records, ordering and reviewing diagnostic tests, and coordinating care with other healthcare providers. This time includes: history taking, physical examination, medical decision making, counseling, ECG interpretation, imaging interpretation, lab interpretation, orders, and education, excluding time spent in the performance of separately billed services.
[2025-01-19 12:31] VITALS: BP 191/85; PULSE 85
== END 2025-01-19 12:56 | disposition short-term general hospital (02) | DRG 291 ==
LOC: ED 21:47 → SUATTDRO 01-09 03:59 → EDINP 01-09 03:59 → 2S 01-09 16:40 → 1E 01-12 12:33